=== PATIENT | female | born 1960 | race Caucasian/White ===

== ENCOUNTER → 2017-11-21 12:30 | Outpatient (REF) | payer MEDICARE, MEDICAID, SELFPAY ==
[2017-11-21 14:09] LABS: Hemoglobin A1C 9.1 % (4.5-6.2)
== END ==
LOC: LBN 12:30
PROVIDERS: PCP Nurse Practitioner; Visit Provider Family Medicine
DX: E11.40 Type 2 diabetes mellitus with diabetic neuropathy, unspecified (principal)
CPT/HCPCS: 83036

== ENCOUNTER → 2017-12-06 10:00 | Outpatient (CLI) | payer MEDICARE, MEDICAID, SELFPAY | PROVIDERS: PCP Nurse Practitioner; Visit Provider Internal Medicine Cardiovascular Disease | DX: Z45.018 Encounter for adjustment and management of other part of cardiac pacemaker (principal); I49.5 Sick sinus syndrome; L03.032 Cellulitis of left toe | CPT/HCPCS: 93288; 99213 ==

== ENCOUNTER 2017-12-27 16:47 | Emergency (ER) | payer MEDICARE, MEDICAID, SELFPAY ==
[2017-12-27] VITALS (34 sets, daily range): BP systolic 145–177; BP diastolic 65–149; PULSE 50–75; RESP 8–18; TEMP 36.8–37.2; O2SAT 99–100
--- NOTE | 2017-12-27 16:59 | W.ED.GENAD ---
Discharge Plan Discharge Details Chief Complaint: Diabetes Clinical Impression: Hyperglycemia, Unresponsive episode, Abnormal CT of brain Reason For Visit: DONNA Primary Care Provider: Rosaura Fragoso ED Provider: Camila Miranda Disposition Patient Disposition: HOME Condition: Stable Home Meds and New Rx's Prescriptions: Continue levomefolate calcium 15 MG tablet 15 mg PO DAILY RF: 0 pen needle, diabetic 1 EACH needle 1 ea Miscellaneous QID Qty: 200 RF: 5 acetaminophen 500 MG tablet 500 mg PO HS PRNRF: 0 multivitamin [Daily Multi-Vitamin] 1 EACH tablet 1 ea PO DAILY RF: 0 naproxen sodium [Aleve] 220 MG capsule 220 mg PO BID RF: 0 lorazepam 0.5 MG tablet 0.5 mg PO BID PRNQty: 60 RF: 0 insulin glargine [Basaglar KwikPen U-100 Insulin] 100 UNIT/1 ML insulin pen 30 unit SQ DAILY Qty: 3 RF: 12 oxycodone 5 MG tablet 2.5 mg PO BID PRNQty: 20 RF: 0 amoxicillin-pot clavulanate 1 TAB tablet 1 tab PO BID 7 Days Qty: 14 RF: 0 acetaminophen [Mapap Extra Strength] 500 MG tablet 500 mg PO Q8H PRN PRNQty: 1 RF: 0 insulin aspart U-100 [Novolog Flexpen U-100 Insulin] 100 UNIT/ML insulin pen 1 unit SQ TID RF: 0 atorvastatin 40 mg Tablet 40 mg PO DAILY RF: 0 acetaminophen 325 mg Tablet 650 mg PO PRN PRNRF: 0 acetaminophen [Acetaminophen Extra Strength] 500 mg Tablet 500 mg PO DAILY RF: 0 acetaminophen [Acetaminophen Extra Strength] 500 mg Tablet 1,000 mg PO BID RF: 0 hydromorphone 2 mg Tablet 2 mg PO BID PRNRF: 0 aspirin 81 mg Tablet,Chewable 81 mg PO DAILY RF: 0 folic acid 1 mg Tablet 1 mg PO DAILY RF: 0 mirtazapine 15 mg Tablet 15 mg PO HS RF: 0 gabapentin 100 mg Capsule 100 mg PO TID PRNRF: 0 ergocalciferol (vitamin D2) [Drisdol] 50,000 unit Capsule 50,000 unit PO QMONTH RF: 0 lorazepam 1 mg Tablet 1 mg PO HS RF: 0 lamotrigine 100 mg Tablet 100 mg PO DAILY RF: 0 insulin aspart U-100 [Novolog Flexpen U-100 Insulin] 100 unit/mL Insulin Pen 10 units subcut AC RF: 0 Discharge Instructions Instructions: Diabetic Hyperglycemia (ED) Additional Instructions: The CAT scan of your brain noted an area that suggested a possible old stroke. There was no new stroke noted today. You should receive a call from care management regarding follow-up with neurology Shanae Rivas for further evaluation of your abnormal CT brain. The recommendation would be for an MRI brain for further evaluation, but we are limited in doing so due to your history of pacemaker. As you have no focal weakness or numbness, there may be no further indication for any testing per neurology. Take your regular medications as directed. Be sure to drink plenty of fluids. Follow-up with her primary care doctor in 1 week. Return to the emergency department any worsening or new concerning symptoms. Referrals: Claudia Pappas MD [ [facility] STAFF PHYSICIAN] - Discharge Data Discharge Physician: Camila Miranda Medical Decision Making MDM Narrative Medical decision making narrative: 57-year-old female with history of diabetes who has been a resident of the [facility] since August 2017 after an aortobifemoral bypass at [facility] in July 2017 who presents for an unresponsive episode followed by hyperglycemia today. Per ED nurse per nurse at the [facility], patient was given a dose of Ativan and dilaudid this morning and appeared unresponsive this afternoon then another nurse reevaluated and she became responsive. Will call the [facility] for more information regarding this episode. There was also mention of chronic leg pain status post her aortobifemoral but she has good PT and DP pulses in the left lower extremity with no skin changes noted. Glucose at the [facility] 363. Glucose on arrival to ED 333. Vitals within normal limits. 1714 --EKG notes a rate of 54, sinus, no acute ST elevation or depression. QTc 379. QRS 98. Patient is awake and oriented ?3. Patient knows the president's name. Pt denies any acute complaints. Patient states her baseline glucose is usually 150. She states she ate normally today. Will place an IV, bolus IV fluids, labs, urinalysis, chest x-ray. Due to patient's unresponsive episode earlier today, unsure if this is related to over sedating medications as patient is on Ativan 1 mg daily and 0.5 mg as needed, Dilaudid 2 mg, Remeron, gabapentin, Lamictal. She demonstrates no focal deficits at this time and appears in no acute distress and nontoxic. We will also obtain a CT head. 1809 -- D/w pt's nurse Vlad (Shanae?) at the [facility] - she states that pt appeared to have an unresponsive episode today in which she was pale and had a weak pulse. She states her respiratory rate was approximately around 10 but the remainder of her vitals were within normal limits. She states she then awoke with a sternal rub and began moaning. She states that patient went with her spring encaser to her farm today prior to this episode to see her cat and she expressed concern whether patient took maybe an additional medication. She states that pt received ativan and dilaudid this morning prior to her visit to the farm. She denies any other sedating mediations today and that she receives lamictal, gabapentin and remeron at night. Pt denies taking any additional medication, alcohol or drugs today. Nurse at [facility] also expressed concern about pt feeling suicidal. She states that last week there was question of pt cutting herself but pt denies this or ever feeling suicidal then or at present. She denies any prior history of suicide attempt. Pt had an evaluation by mental health last week at the [facility] per nurse at the [facility] and they found her to not be suicidal at that time. Will check UDS. 1829 --labs reviewed and glucose 343. Anion gap 6.1. Bicarb 28.9. Potassium 4.2. Troponin negative. White blood cell count 5.31. Urine negative for ketones, nitrite, blood or leukocyte esterase. We will continue bolus IV fluids and give a dose of 6 units insulin. 1924 --discussed w/ vrad -there is a questionable subacute infarct noted in the right postcentral gyrus that recommends further evaluation with an MRI brain. There is no acute infarct. Patient denied any unilateral numbness or weakness and she had no focal deficits on initial exam. Chest x-ray noted a 1 x 0.5 lesion in the sixth rib consistent with likely a nodular granuloma or even a sclerotic lesion and recommend further evaluation with a nonemergent chest CT. These results were discussed with patient. I also discussed CT head results with patient and she denies any known previous history of stroke and any weakness at present. She has no focal deficits on reassessment. Patient cannot obtain an MRI brain due to her history of pacemaker. Patient is requesting to leave. She is tearful at times and has a history of developmental delay and mom states she is at her baseline and is not unusual for her to become tearful when talking about her history. She states she is hungry and hasn't eaten all day. She is asking for her evening dose of Dilaudid for her chronic L leg pain. Recommended that patient follow-up with neurology for reevaluation. Patient states she will not see Dr. Pappas because her and I do not get along. Will place patient on care management list for appointment with pcp and neurology [employer]INE[employer] Shanae Rivas. UDS noted opioids but otherwise negative. Recheck glucose 146. Mom will take patient to the [facility]. She plans on taking patient to eat dinner first. Patient was given a dose of her evening Dilaudid p.o. Her vitals have remained stable, she is awake and alert and mom states she is at her baseline HPI - General Adult General Mode of arrival: EMS. Date/Time Provider Initiated Documentation: 12/27/17 16:51. Limitations to Documentation: no limitations. Information obtained by: patient. HPI Narrative: Patient is a 57-year-old female history of diabetes who presents to the ER after an unresponsive episode at the [facility] today followed by hyperglycemia of 363. Pt does not recall this episode. Pt has no acute complaints at this time. She denies fever, chest pain, shortness of breath, abdominal pain, urinary symptoms, back pain, headache or dizziness. Related Data Home Medications Medication Instructions Recorded Confirmed levomefolate calcium 15 mg PO DAILY 12/26/16 08/18/17 acetaminophen 500 mg PO HS PRN 04/11/17 08/18/17 insulin aspart U-100 [Novolog 1 unit SQ TID 05/16/17 08/18/17 Flexpen U-100 Insulin] multivitamin [Daily Multi-Vitamin] 1 ea PO DAILY 05/28/17 12/27/17 naproxen sodium [Aleve] 220 mg PO BID 05/28/17 08/18/17 acetaminophen 650 mg PO PRN PRN 12/27/17 12/27/17 acetaminophen [Acetaminophen Extra 1,000 mg PO BID 12/27/17 12/27/17 Strength] acetaminophen [Acetaminophen Extra 500 mg PO DAILY 12/27/17 12/27/17 Strength] aspirin 81 mg PO DAILY 12/27/17 12/27/17 atorvastatin 40 mg PO DAILY 12/27/17 12/27/17 ergocalciferol (vitamin D2) 50,000 unit PO QMONTH 12/27/17 12/27/17 [Drisdol] folic acid 1 mg PO DAILY 12/27/17 12/27/17 gabapentin 100 mg PO TID PRN 12/27/17 12/27/17 hydromorphone 2 mg PO BID PRN 12/27/17 12/27/17 insulin aspart U-100 [Novolog 10 units SUBCUT AC 12/27/17 12/27/17 Flexpen U-100 Insulin] lamotrigine 100 mg PO DAILY 12/27/17 12/27/17 lorazepam 1 mg PO HS 12/27/17 12/27/17 mirtazapine 15 mg PO HS 12/27/17 12/27/17 Previous Rx's Medication Instructions Recorded acetaminophen [Mapap Extra 500 mg PO Q8H PRN PRN #1 tab 08/19/17 Strength] amoxicillin-pot clavulanate 1 tab PO BID 7 Days #14 tab 08/19/17 Allergies Allergy/AdvReac Type Severity Reaction Status Date / Time aripiprazole [From Abilify] Allergy Severe Unverified 12/27/17 18:11 duloxetine HCl Allergy Severe Hives Unverified 12/27/17 18:14 [From Cymbalta] oxycodone Allergy Severe Hives Unverified 12/27/17 18:11 Sulfa (Sulfonamide Allergy Severe Skin Rash Unverified 12/27/17 18:11 Antibiotics) thiothixene [Thiothixene] Allergy Severe Nausea Unverified 12/27/17 18:11 amitriptyline Allergy Intermediate Unverified 12/27/17 18:11 citalopram Allergy Intermediate HIVES Unverified 12/27/17 18:11 fesoterodine Allergy Intermediate HIVES Unverified 12/27/17 18:11 latex Allergy Intermediate Hives Unverified 12/27/17 18:11 rabies vaccine, human Allergy Intermediate Unverified 12/27/17 18:11 diploid cell [Rabies Vaccine,Human Diploid] Tetanus Vaccines and Toxoid Allergy Intermediate Swelling/Ed Unverified 12/27/17 18:11 [Tetanus Vaccines & Toxoid] ghulam topiramate Allergy Intermediate Nausea Unverified 12/27/17 18:11 acetaminophen [From Vicodin] Allergy Unknown Unverified 12/27/17 18:11 bupropion HCl Allergy Unknown Unverified 12/27/17 18:11 [From Wellbutrin] celecoxib [From Celebrex] Allergy Unknown Unverified 12/27/17 18:11 citalopram hydrobromide Allergy Unknown Unverified 12/27/17 18:11 [From Celexa] diazepam [From Valium] Allergy Unknown Unverified 12/27/17 18:11 divalproex sodium Allergy Unknown Unverified 12/27/17 18:11 [From Depakote] escitalopram oxalate Allergy Unknown Unverified 12/27/17 18:11 [From Lexapro] fluoxetine HCl [From Prozac] Allergy Unknown Unverified 12/27/17 18:11 fosphenytoin sodium Allergy Unknown Unverified 12/27/17 18:11 [From Cerebyx] hydrocodone bitartrate Allergy Unknown Unverified 12/27/17 18:11 [From Vicodin] lidocaine Allergy Unknown Nausea Unverified 12/27/17 18:11 morphine Allergy Unknown Unverified 12/27/17 18:14 nicotine [From Nicoderm CQ] Allergy Unknown rash/hives Unverified 12/27/17 18:11 paroxetine HCl [From Paxil] Allergy Unknown Unverified 12/27/17 18:11 phenytoin sodium Allergy Unknown Unverified 12/27/17 18:11 [From Dilantin] phenytoin sodium extended Allergy Unknown Unverified 12/27/17 18:11 [From Dilantin] prednisone Allergy Unknown Unverified 12/27/17 18:11 procaine HCl [From Novocain] Allergy Unknown Unverified 12/27/17 18:11 quetiapine fumarate Allergy Unknown Unverified 12/27/17 18:11 [From Seroquel] risperidone [From Risperdal] Allergy Unknown Unverified 12/27/17 18:11 sertraline Allergy Unknown Hives Unverified 12/27/17 18:11 sertraline HCl [From Zoloft] Allergy Unknown Unverified 12/27/17 18:11 trazodone Allergy Unknown Unverified 12/27/17 18:11 venlafaxine HCl Allergy Unknown Unverified 12/27/17 18:11 [From Effexor] gabapentin AdvReac Unknown Severe Unverified 12/27/17 18:11 dizziness, runs; vomiting ibuprofen AdvReac headache Unverified 12/27/17 18:11 and nausea varenicline tartrate AdvReac Psychosis Unverified 12/27/17 18:11 [From Chantix] general anesthia Allergy Unknown Uncoded 12/27/17 18:11 novcaine Allergy Unknown Uncoded 12/27/17 18:11 Rabies shot Allergy Unknown Uncoded 12/27/17 18:11 Sertaline Allergy Unknown Hives Uncoded 12/27/17 18:11 ABSOLUTE CONTRAINDICATION AdvReac Severe Headache Uncoded 12/27/17 18:11 FOR MRI (disconnected RV pacer lead) General Stated Complaint: Diabetes ASIM: 3 Review of Systems Review of Systems All systems reviewed & are unremarkable except as noted in HPI and below Constitutional Denies chills, Denies excessive sweating, Denies fatigue, Denies fever(s), Denies weakness and Denies weight loss Eyes Patient Reports system reviewed and no additional complaints, except as docu and Denies blurry vision ENT Denies vertigo, Denies dizziness, Denies otalgia, Denies nasal congestion, Denies sore throat and Denies throat swelling Cardiovascular Denies chest pain, Denies syncope, Denies rapid heart rate and Denies dyspnea Respiratory Denies dyspnea Gastrointestinal Denies abdominal pain, Denies diarrhea and Denies vomiting Genitourinary Denies hematuria, Denies dysuria and Denies flank pain Musculoskeletal Denies back pain and Denies joint swelling Integumentary/Breasts Denies lesions and Denies rash Neurologic Denies behavioral changes, Denies confusion, Denies vertigo, Denies dizziness, Denies syncope and Denies weakness Psychiatric Denies behavioral changes, Denies confusion and Denies depression Endocrine Denies excessive sweating and Denies fatigue Hematologic/Lymphatic Denies easy bruising and Denies lymphadenopathy Allergic/Immunologic Denies throat swelling PFSH Family History Mother No problems noted. Father No problems noted. Sister No problems noted. Medical History Bipolar 1 disorder Postmenopausal Sinus bradycardia Type 2 diabetes mellitus Social History Smoking/Tobacco Use Status: Former Tobacco Use Surgical History section (~1985) Pacemaker (~2004) aortobifemoral bypass (09/07/17) Exam Const General: cooperative Orientation: alert, awake and oriented x3 HENMT Head: normal to inspection Ears: hearing grossly normal bilaterally, external ears normal and TM's normal bilaterally General nose exam: external nose normal Face and sinus: normal facial exam Mouth: oral mucosae normal Teeth and gingiva: dentition normal Throat: posterior oropharynx normal Eyes General: appearance normal, both eyes and all related structures Eyelids: eyelids normal Pupils: PERRL EOM: EOM intact bilaterally Neck Neck: normal visual inspection Lymphatic: no lymphadenopathy noted Chest Chest: normal inspection of the chest Resp Effort & Inspection: normal respiratory effort and able to speak in complete sentences Auscultation: clear to auscultation bilaterally Cardio Rate: regular rate Rhythm: regular rhythm GI Inspection: normal to inspection and other (well healed midline abdominal scar) Palpation: soft, not firm, no guarding, no hepatosplenomegaly, no masses and nontender Auscultation: normal bowel sounds Back/Spine/Pelvis Back: no CVA tenderness Skin General skin exam: no rashes or lesions noted Neuro General: alert, awake and oriented x3 Cranial Nerves: CN's II-XI intact bilaterally Cognition: normal cognition Speech: speech normal Gait: normal gait Motor: muscle tone normal throughout Sensory Exam: no sensory deficits noted Extrem General: normal to inspection, full ROM, normal capillary refill, pedal edema present, no calf tenderness bilaterally, no cyanosis and no edema Right upper extremity: normal capillary refill Psych Appearance: grossly normal Mental Status: mental status grossly normal Speech and Movement: speech and movement normal Affect: normal affect Thought Process: normal Course Vital Signs Temperature 99.0 F 12/27/17 16:45 Pulse 75 12/27/17 16:45 Respiratory Rate 14 12/27/17 16:45 Temperature 99.0 F 12/27/17 16:45 Pulse 75 12/27/17 16:45 Respiratory Rate 14 12/27/17 16:45
[2017-12-27 17:23] LABS: Bilirubin Negative (Negative); Blood Negative (Negative); Clarity Clear; Glucose 500 mg/dL (Negative); Ketones Negative (Negative); Leukocyte Esterase Negative (Negative); Nitrite Negative (Negative); Specific Gravity 1.015 (1.005-1.025)
[2017-12-27] MEDS: Normal Saline Flush 10 ML SYR IVP (17:30)
[2017-12-27 17:37] LABS: Absolute Basophil Count 0.01 k/cumm (0.0-0.2); Absolute Eosinophil Count 0.07 k/cumm (0.0-0.7); Absolute Lymphocyte Count 1.98 k/cumm (1.2-3.4); Absolute Monocyte Count 0.35 k/cumm (0.11-0.7); Basophils % 0.2; Eosinophils % 1.3; HCT 37.1 % (36.0-46.0); HGB 12.8 g/dL (12.0-15.5); Lymphocytes % 37.3; Mean Corp. HGB Concentration 34.5 g/dL (32.0-36.0); Mean Corpuscular Hemoglobin 30.7 pg (27.0-33.0); Mean Platelet Volume 9.4 fL (8.0-11.0); Monocytes % 6.6; Neutrophils % 54.6; Platelet Count 203 x1000/uL (130-400); RBC 4.17 m/cumm (4.00-5.20); RBC Distribution Width 12.9 % (11.7-14.6); White Blood Cell Count 5.31 k/cumm (4.4-10.8)
[2017-12-27] MEDS: Normal Saline 1,000 ML 1000 ML IV ×2 (17:50→19:20)
[2017-12-27 17:54] LABS: ALT 26 U/L (12-78); AST 13 U/L (15-37); Albumin 3.8 g/dL (3.4-5.0); Alkaline Phosphatase 107 U/L (46-116); Anion Gap 6.1 mmol/L (3-11); BUN 20 mg/dL (7-18); Bilirubin, Total 0.6 mg/dL (0.2-1.0); CO2 28.9 mmol/L (21.0-32.0); CREATININE 1.16 mg/dL (0.55-1.02); Calcium 9.5 mg/dL (8.5-10.1); Chloride 100 mmol/L (98-107); Estimated GFR 48.33 (mL/min/1.73m2); Glucose 343 mg/dL (70-100); Magnesium 1.8 mg/dL (1.8-2.4); Potassium 4.2 mmol/L (3.5-5.1); Sodium 135 mmol/L (136-145); Total Protein 7.6 g/dL (6.4-8.2)
[2017-12-27 17:56] LABS: Troponin I < 0.02 ng/mL (0.00-0.06)
--- NOTE | 2017-12-27 18:48 | DI.COMBO_ITS ---
SYMPTOM/DIAGNOSIS: ALTERED MENTAL STATUS PA AND LATERAL CHEST: Comparison is made with 07/31/16. The heart size is normal. A pacemaker is noted. The lungs are well inflated and clear. A bone island is again seen in the left posterior sixth rib. IMPRESSION: No acute abnormality. NONCONTRAST HEAD CT: Comparison is made with 02/10/16. No intracranial hemorrhage, mass or acute infarct is seen. Again noted are patchy areas of decreased attenuation in the white matter consistent with small vessel disease. There is a more focal area of decreased attenuation in the posterior left frontal as well as in the right parietal lobe, consistent with old lacunar infarcts. The ventricles are normal in size.. The sinuses and mastoid air cells appear clear. 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 No acute infarct is visible at this time.
--- NOTE | 2017-12-27 19:04 | NUR.NOTE ---
Nursing Note: Escorted via stretcher to CT and xray at 1840 by library cataloging technician. Return to ED at 1900
[2017-12-27] MEDS: Insulin REGULAR-Human 100 UNITS/ML UNIT 6 UNITS IV (19:14)
[2017-12-27 19:43] LABS: *AMPHETAMINES SCREEN URINE Negative (Negative); *BARBITURATES SCREEN URINE Negative (Negative); *BENZODIAZEPINES SCREEN URINE Negative (Negative); Cannabinoids THC Negative (Negative); Cocaine Screen,Urine Negative (Negative); METHADONE URINE SCREEN Negative (Negative); OPIATES URINE SCREEN POSITIVE (Negative); Tricyclic Antidepressants Negative (Negative)
[2017-12-27] MEDS: HYDROmorphone 2 MG TAB PO (20:01)
--- NOTE | 2018-01-07 10:53 | PDOC.ERCMPRO ---
Care Management Progress Note 01/07/18-Pt seen for unresponsive episode on 12/27/[address] Miranda. [address] Scan was abnormal. Referral to Neurology for the next day or two requested.
== END 2017-12-27 20:24 | disposition home or self-care (01) ==
PROVIDERS: Emergency Provider Physician Assistant; PCP Nurse Practitioner
DX: E11.65 Type 2 diabetes mellitus with hyperglycemia (principal); Z79.4 Long term (current) use of insulin; R41.82 Altered mental status, unspecified; R93.0 Abnormal findings on diagnostic imaging of skull and head, not elsewhere classified; Z95.0 Presence of cardiac pacemaker
CPT/HCPCS: 36416; 80053; 80307; 82962; 93005; 96361; 96374; 99285; 70450; 71046; 81003; 83735; 84484; 85025; 93010

== ENCOUNTER → 2018-01-17 09:43 | Outpatient (BNVA) | payer MEDICARE, MEDICAID, SELFPAY | PROVIDERS: PCP Nurse Practitioner; Visit Provider Psychiatry & Neurology Neurology | DX: I63.9 Cerebral infarction, unspecified (principal); E11.9 Type 2 diabetes mellitus without complications; Z79.4 Long term (current) use of insulin | CPT/HCPCS: 99214 ==

== ENCOUNTER 2018-01-24 09:07 | Emergency (ER) | payer MEDICARE, MEDICAID, SELFPAY ==
[2018-01-24 09:11] VITALS: BP 140/90; PULSE 91; RESP 18; TEMP 37; O2SAT 96
--- NOTE | 2018-01-24 09:16 | DI.RAD_ITS ---
SYMPTOM/DIAGNOSIS: LT LAT DISTAL METATARSAL LESION, ? OSTEO LEFT FOOT: Three views. No acute fracture, dislocation, lytic or sclerotic lesion is seen. No erosive changes are seen to suggest osteomyelitis. The bones are osteopenic. No radiopaque foreign bodies are seen in the soft tissues. IMPRESSION: No radiographic findings to suggest osteomyelitis. The findings were discussed with Dr Rocha of the ER on the date of the examination.
--- NOTE | 2018-01-24 09:18 | W.ED.GENAD ---
Discharge Plan Disposition Patient Disposition: HOME Condition: Good Discharge Details Chief Complaint: Orthopedic Clinical Impression: Acute pain of left foot, Cellulitis Primary Care Provider: Rosaura Fragoso ED Provider: Yomi Rocha Home Meds and New Rx's Prescriptions: New cephalexin 500 mg capsule 500 mg PO QID 7 Days Qty: 28 RF: 0 No Action pen needle, diabetic 1 EACH needle 1 ea Miscellaneous QID Qty: 200 RF: 5 multivitamin [Daily Multi-Vitamin] 1 EACH tablet 1 ea PO DAILY RF: 0 lorazepam 0.5 MG tablet 0.5 mg PO BID PRNQty: 60 RF: 0 insulin aspart U-100 [Novolog Flexpen U-100 Insulin] 100 UNIT/ML insulin pen 1 unit SQ TID RF: 0 atorvastatin 40 mg Tablet 40 mg PO DAILY RF: 0 acetaminophen 325 mg Tablet 650 mg PO PRN PRNRF: 0 acetaminophen [Acetaminophen Extra Strength] 500 mg Tablet 1,000 mg PO TID RF: 0 hydromorphone 2 mg Tablet 1 mg PO BID PRNRF: 0 aspirin 81 mg Tablet,Chewable 81 mg PO DAILY RF: 0 folic acid 1 mg Tablet 1 mg PO DAILY RF: 0 mirtazapine 15 mg Tablet 15 mg PO HS RF: 0 gabapentin 100 mg Capsule 100 mg PO TID PRNRF: 0 ergocalciferol (vitamin D2) [Drisdol] 50,000 unit Capsule 50,000 unit PO QMONTH RF: 0 lorazepam 1 mg Tablet 1 mg PO HS RF: 0 lamotrigine 100 mg Tablet 100 mg PO DAILY RF: 0 insulin aspart U-100 [Novolog Flexpen U-100 Insulin] 100 unit/mL Insulin Pen 10 units subcut AC RF: 0 melatonin 10 mg Tablet 10 mg PO HS RF: 0 insulin glargine [Basaglar KwikPen U-100 Insulin] 100 UNIT/1 ML insulin pen 35 unit SQ DAILY RF: 0 Discharge Instructions Instructions: Cellulitis (ED) Additional Instructions: Please take the antibiotic as directed. Please take your home pain medications as already prescribed. If you notice any worsening of your symptoms, or any new symptoms such as vomiting, diarrhea, fever, chills, shortness of breath, chest pain, numbness, weakness, or fainting , please return immediately to the emergency department for reevaluation. Please follow up with your primary care provider as soon as possible for reassessment and reevaluation. As always, it was a pleasure participating in your medical care today. Referrals: Rosaura Fragoso, LAZARO [Primary Care Provider] - Medical Decision Making This is a pleasant 57-year-old female multiple medical problems who presents today for evaluation of left lower foot pain at the distal left fifth metatarsal. Minimal redness, no signs of fluctuance. Mild tenderness. She does have risk factors for osteomyelitis of diabetes, and peripheral vascular disease. Physical exam shows no ulceration. Unable to probe to bone on exam. We will get an ESR, CRP, and x-ray to rule out osteo-. Feel that she will be safe for discharge home pending results. 10:24 AM The patient's x-ray has returned, I see no evidence of osteomyelitis, I did review it with the radiologist and he states no evidence of osteomyelitis. Patient demonstrates no significant leukocytosis, her CRP is normal. And the ESR is only marginally elevated at 35. Additionally there was no evidence of ability to probe to bone on my initial exam. I feel that the likelihood of osteomyelitis is extremely unlikely and clinically inconsistent with her current picture. With no evidence of significant severe cellulitis, I feel her symptoms most likely secondary to mild irritation and soreness. Out of an abundance of precaution secondary to the patient's diabetes, and peripheral vascular disease we will give a trial of oral antibiotics for potential mild cellulitis. I have extensively reviewed the treatment plan and discharge instructions with the patient and their family. I have addressed all patient concerns at this time. The patient and family was made aware of what symptoms to monitor for that would warrant a return to the emergency department. Discussed the plan with the patient and family, they demonstrate verbal understanding and agreement with our assessment and plan at this time. HPI General Date/Time Provider Initiated Documentation: 01/24/18 09:15. HPI Narrative: This is a 57-year-old female with a very long past medical history of paranoia, PTSD, previous abdominal aortofemoral bypass, peripheral artery disease, bipolar, type 2 diabetes, empty HFR, who presents today for evaluation of left lateral foot pain. Patient states that 2 weeks ago she felt that something sharp might of poked her left lateral foot, there is no pain initially, however over the last week she has developed mild worsening pain over this region. She denies any fever, or chills. The pain is worse with movement and palpation, improved by nothing. She denies any significant redness or swelling. She denies any ankle or leg pain. She denies any other recent injuries or trauma. She has not been taking any antibiotics. She is currently staying at the [facility] facility. Patient has no other additional pertinent complaints at this time. Related Data Home Medications Medication Instructions Recorded Confirmed pen needle, diabetic #200 ndl 02/27/17 01/17/18 insulin aspart U-100 [Novolog 1 unit SQ TID 05/16/17 01/24/18 Flexpen U-100 Insulin] multivitamin [Daily Multi-Vitamin] 1 ea PO DAILY 05/28/17 01/24/18 lorazepam 0.5 mg PO BID PRN #60 tab-cap 06/04/17 01/24/18 acetaminophen 650 mg PO PRN PRN 12/27/17 01/24/18 acetaminophen [Acetaminophen Extra 1,000 mg PO TID 12/27/17 01/24/18 Strength] aspirin 81 mg PO DAILY 12/27/17 01/24/18 atorvastatin 40 mg PO DAILY 12/27/17 01/24/18 ergocalciferol (vitamin D2) 50,000 unit PO QMONTH 12/27/17 01/24/18 [Drisdol] folic acid 1 mg PO DAILY 12/27/17 01/24/18 gabapentin 100 mg PO TID PRN 12/27/17 01/24/18 hydromorphone 1 mg PO BID PRN 12/27/17 01/24/18 insulin aspart U-100 [Novolog 10 units SUBCUT AC 12/27/17 01/17/18 Flexpen U-100 Insulin] lamotrigine 100 mg PO DAILY 12/27/17 01/24/18 lorazepam 1 mg PO HS 12/27/17 01/24/18 mirtazapine 15 mg PO HS 12/27/17 01/24/18 cephalexin 500 mg PO QID 7 Days #28 cap 01/24/18 insulin glargine [Basaglar KwikPen 35 unit SQ DAILY 01/24/18 01/24/18 U-100 Insulin] melatonin 10 mg PO HS 01/24/18 01/24/18 Previous Rx's Medication Instructions Recorded pen needle, diabetic #200 ndl 02/27/17 cephalexin 500 mg PO QID 7 Days #28 cap 01/24/18 Allergies Allergy/AdvReac Type Severity Reaction Status Date / Time aripiprazole [From Abilify] Allergy Severe Unverified 01/24/18 09:20 duloxetine HCl Allergy Severe Hives Unverified 01/24/18 09:20 [From Cymbalta] oxycodone Allergy Severe Hives Unverified 01/24/18 09:20 Sulfa (Sulfonamide Allergy Severe Skin Rash Unverified 01/24/18 09:20 Antibiotics) thiothixene [Thiothixene] Allergy Severe Nausea Unverified 01/24/18 09:20 amitriptyline Allergy Intermediate Unverified 01/24/18 09:20 citalopram Allergy Intermediate HIVES Unverified 01/24/18 09:20 fesoterodine Allergy Intermediate HIVES Unverified 01/24/18 09:20 latex Allergy Intermediate Hives Unverified 01/24/18 09:20 rabies vaccine, human Allergy Intermediate Unverified 01/24/18 09:20 diploid cell [Rabies Vaccine,Human Diploid] Tetanus Vaccines and Toxoid Allergy Intermediate Swelling/Ed Unverified 01/24/18 09:20 [Tetanus Vaccines & Toxoid] ghulam topiramate Allergy Intermediate Nausea Unverified 01/24/18 09:20 acetaminophen [From Vicodin] Allergy Unknown Unverified 01/24/18 09:20 bupropion HCl Allergy Unknown Unverified 01/24/18 09:20 [From Wellbutrin] celecoxib [From Celebrex] Allergy Unknown Unverified 01/24/18 09:20 citalopram hydrobromide Allergy Unknown Unverified 01/24/18 09:20 [From Celexa] diazepam [From Valium] Allergy Unknown Unverified 01/24/18 09:20 divalproex sodium Allergy Unknown Unverified 01/24/18 09:20 [From Depakote] escitalopram oxalate Allergy Unknown Unverified 01/24/18 09:20 [From Lexapro] fluoxetine HCl [From Prozac] Allergy Unknown Unverified 01/24/18 09:20 fosphenytoin sodium Allergy Unknown Unverified 01/24/18 09:20 [From Cerebyx] hydrocodone bitartrate Allergy Unknown Unverified 01/24/18 09:20 [From Vicodin] lidocaine Allergy Unknown Nausea Unverified 01/24/18 09:20 morphine Allergy Unknown Unverified 01/24/18 09:20 nicotine [From Nicoderm CQ] Allergy Unknown rash/hives Unverified 01/24/18 09:20 paroxetine HCl [From Paxil] Allergy Unknown Unverified 01/24/18 09:20 phenytoin sodium Allergy Unknown Unverified 01/24/18 09:20 [From Dilantin] phenytoin sodium extended Allergy Unknown Unverified 01/24/18 09:20 [From Dilantin] prednisone Allergy Unknown Unverified 01/24/18 09:20 procaine HCl [From Novocain] Allergy Unknown Unverified 01/24/18 09:20 quetiapine fumarate Allergy Unknown Unverified 01/24/18 09:20 [From Seroquel] risperidone [From Risperdal] Allergy Unknown Unverified 01/24/18 09:20 sertraline Allergy Unknown Hives Unverified 01/24/18 09:20 sertraline HCl [From Zoloft] Allergy Unknown Unverified 01/24/18 09:20 trazodone Allergy Unknown Unverified 01/24/18 09:20 venlafaxine HCl Allergy Unknown Unverified 01/24/18 09:20 [From Effexor] gabapentin AdvReac Unknown Severe Unverified 01/24/18 09:20 dizziness, runs; vomiting ibuprofen AdvReac headache Unverified 01/24/18 09:20 and nausea varenicline tartrate AdvReac Psychosis Unverified 01/24/18 09:20 [From Chantix] general anesthia Allergy Unknown Uncoded 01/24/18 09:20 novcaine Allergy Unknown Uncoded 01/24/18 09:20 Rabies shot Allergy Unknown Uncoded 01/24/18 09:20 Sertaline Allergy Unknown Hives Uncoded 01/24/18 09:20 ABSOLUTE CONTRAINDICATION AdvReac Severe Headache Uncoded 01/24/18 09:20 FOR MRI (disconnected RV pacer lead) General Stated Complaint: Orthopedic ASIM: 3 Review of Systems Review of Systems All systems reviewed & are unremarkable except as noted in HPI and below Exam Narrative Exam Narrative: 1.Const: Well-nourished, Well-developed, appearing stated age 2.Eyes: PERRL, no conjunctival injection, and symmetrical lids. 3.ENT: Atraumatic external nose and ears. Moist MM. Neck: Symmetric, trachea midline, No thyromegaly. 4.CVS: +S1/S2, No murmurs or gallops. Peripheral pulses 2+ and equal in all extremities. Brisk capillary refill in all extremities. 5.RESP: Unlabored respiratory effort. Clear to auscultation bilaterally. No wheezes rales or rhonchi 6.GI: Soft, Nontender/Nondistended, No hepatosplenomegaly. No guarding or rebound. Recent abdominal scars present, healing well, no significant tenderness. Excellent wound healing. 7.MSK: Normocephalic/Atraumatic, Extremities w/o deformity, No cyanosis or clubbing, Normal movement of all extremities. Patient does have a small pinpoint lesion on the lateral aspect of her distal 5th metatarsal. No evidence of fluctuance. Minimal erythema extending out 5 mm. Mild tenderness in the area. No evidence of ulceration. Normal movement of foot and toes. No significant osseous deformity. Normal sensation. Dorsalis pedis +1 bilaterally, posterior tibial +1 bilaterally, capillary refill is brisk. 8.Skin: Warm, Dry. No rashes or lesions. 9.Neuro: barker operator II-XII grossly intact. Sensation grossly intact, no focal neurologic deficits. 10.Psych: (AAO) x3. Appropriate mood and affect Course Vital Signs Temperature 37.0 C 01/24/18 09:11 Pulse 91 H 01/24/18 09:11 Respiratory Rate 18 01/24/18 09:11 Blood Pressure 140/90 01/24/18 09:11 Pulse Oximetry 96 01/24/18 09:11 Temperature 37.0 C 01/24/18 09:11 Temperature Source Skin 01/24/18 09:11 Pulse 91 H 01/24/18 09:11 Respiratory Rate 18 01/24/18 09:11 Blood Pressure 140/90 01/24/18 09:11 Blood Pressure Position Sitting 01/24/18 09:11 Pulse Oximetry 96 01/24/18 09:11 Oxygen Delivery Method Room Air 01/24/18 09:11 Oxygen Flow Rate 0 01/24/18 09:11 Pain Level 9 01/24/18 09:11
[2018-01-24 09:49] LABS: Abs Immature Grans 0.01 k/cumm (0.0-0.09); Absolute Basophil Count 0.03 k/cumm (0.0-0.2); Absolute Lymphocyte Count 1.35 k/cumm (1.2-3.4); Absolute Monocyte Count 0.29 k/cumm (0.11-0.7); Absolute Neutrophil Count 3.42 k/cumm (1.2-6.7); Basophils % 0.6; Eosinophils % 1.9; HCT 37.9 % (36.0-46.0); HGB 13.2 g/dL (12.0-15.5); Immature Grans % 0.2; Mean Corp. HGB Concentration 34.8 g/dL (32.0-36.0); Mean Corpuscular Hemoglobin 31.8 pg (27.0-33.0); Mean Corpuscular Volume 91.3 fL (80-95); Mean Platelet Volume 9.8 fL (8.0-11.0); Monocytes % 5.6; Neutrophils % 65.7; Platelet Count 184 x1000/uL (130-400); RBC 4.15 m/cumm (4.00-5.20); RBC Distribution Width 12.6 % (11.7-14.6)
[2018-01-24 10:01] LABS: C-Reactive Protein < 0.05 mg/dL (0.0-0.3)
[2018-01-24 10:23] LABS: ESR 35 MM/HR (0-30)
== END 2018-01-24 10:43 | disposition home or self-care (01) ==
PROVIDERS: Emergency Provider Student in an Organized Health Care Education/Training Program; PCP Nurse Practitioner
DX: M79.672 Pain in left foot (principal); L03.116 Cellulitis of left lower limb; R70.0 Elevated erythrocyte sedimentation rate; E11.9 Type 2 diabetes mellitus without complications; Z79.4 Long term (current) use of insulin; I73.9 Peripheral vascular disease, unspecified
CPT/HCPCS: 36415; 85652; 99283; 73620; 73630; 85025; 86140

== ENCOUNTER 2018-07-07 08:11 | Emergency (ER) | payer MEDICARE, MEDICAID, SELFPAY ==
--- NOTE | 2018-07-07 08:16 | NUR.NOTE ---
pt tripped on a carpet at approximately 1900 last night landing on her left elbow pt denies hitting her head, loc or any other injuries
[2018-07-07 08:17] VITALS: BP 171/81; PULSE 66; RESP 15; TEMP 36.8; O2SAT 99
--- NOTE | 2018-07-07 08:28 | W.ED.GENAD ---
Discharge Plan Disposition Patient Disposition: HOME Discharge Details Chief Complaint: Orthopedic Clinical Impression: Fracture of radial head, left, closed Primary Care Provider: Rosaura Fragoso ED Provider: Kenyon Long Home Meds and New Rx's Prescriptions: Continued Vraylar 1.5 mg capsule 1.5 mg PO DAILY RF: 0 nystatin 100,000 unit/gram cream 1 applic TP TID PRN (Reason: Apply to rash between breasts) Qty: 30 RF: 1 Eliquis 5 mg tablet 5 mg PO BID Qty: 180 RF: 3 atorvastatin 40 mg tablet 40 mg PO DAILY Qty: 90 RF: 3 Basaglar KwikPen U-100 Insulin 100 unit/mL (3 mL) insulin pen 35 unit subcut DAILY Qty: 15 RF: 12 Novolog Flexpen U-100 Insulin 100 unit/mL insulin pen 10 unit subcut AC Qty: 15 RF: 12 Blood Glucose Test strip .ROUTE .MEDSUPPLY Qty: 300 RF: 3 alpha lipoic acid 300 mg capsule 300 mg PO DAILY Qty: 90 RF: 3 multivitamin [Daily Multi-Vitamin] 1 EACH tablet 1 ea PO DAILY RF: 0 TENS 504 device .ROUTE .MEDSUPPLY Qty: 1 RF: 0 lamotrigine 100 mg tablet 100 mg PO BID RF: 0 lorazepam 1 mg tablet 1 mg PO HS RF: 0 pen needle, diabetic 31 gauge x 1/3 needle 1 ea Miscellaneous QID Qty: 200 RF: 5 acetaminophen [Acetaminophen Extra Strength] 500 mg Tablet 1,000 mg PO TID RF: 0 mirtazapine 15 mg Tablet 15 mg PO HS RF: 0 ergocalciferol (vitamin D2) [Drisdol] 50,000 unit Capsule 50,000 unit PO QMONTH RF: 0 melatonin 10 mg Tablet 10 mg PO HS RF: 0 Discharge Instructions Instructions: Elbow Fracture in Adults (ED), Fall Prevention for Older Adults (ED) Additional Instructions: Use sling. No lifting or weightbearing with left arm. Follow-up with orthopedics. Call for an appointment. Return to the ER for any worsening or new concerning symptoms. Referrals: Natalio Baig MD [ [facility] STAFF PHYSICIAN] - Medical Decision Making 57-year-old female here today with left elbow pain after mechanical fall landing on her left elbow last night. She is neurovascular intact distal left upper extremity. X-ray of the left elbow reviewed and interpreted by radiology: IMPRESSION: 1. Lucency through the neck of the radial head consistent with minimally displaced fracture. 2. Small anterior joint effusion. I called and spoke with orthopedics divisional storekeeper, Dr. Baig who reviewed xray and agrees with plan for sling and followup. Sling applied. Patient instructed to follow-up with orthopedics. HPI General Mode of arrival: ambulatory. Date/Time Provider Initiated Documentation: 07/07/18 08:27. Limitations to Documentation: no limitations. Information obtained by: patient. HPI Narrative: 57-year-old female presents with chief complaint of elbow pain. Patient notes she tripped and fell on a rug last night and landed on her left elbow. She has had pain since the fall. Pain is worse with extension at the elbow. She has no associated numbness or weakness. She did not hit her head. She did not lose consciousness. No neck pain. She has no pelvic pain. No chest pain or abdominal pain. Related Data Home Medications Medication Instructions Recorded Confirmed multivitamin [Daily Multi-Vitamin] 1 ea PO DAILY 05/28/17 07/07/18 acetaminophen [Acetaminophen Extra 1,000 mg PO TID 12/27/17 07/07/18 Strength] ergocalciferol (vitamin D2) 50,000 unit PO QMONTH 12/27/17 07/07/18 [Drisdol] mirtazapine 15 mg PO HS 12/27/17 07/07/18 melatonin 10 mg PO HS 01/24/18 05/06/18 apixaban 5 mg tablet 5 mg PO BID #180 tab 04/09/18 05/06/18 atorvastatin 40 mg tablet 40 mg PO DAILY #90 tab 04/09/18 07/07/18 cariprazine 1.5 mg capsule 1.5 mg PO DAILY 04/09/18 05/06/18 insulin aspart U- 100 100 unit/mL 10 unit SUBCUT AC #15 ml 04/09/18 07/07/18 subcutaneous pen insulin glargine (U-100) 100 35 unit SUBCUT DAILY #15 ml 04/09/18 07/07/18 unit/mL (3 mL) subcutaneous pen nystatin 100,000 unit/gram topical 1 applic TP TID PRN #30 gm 04/09/18 07/07/18 cream alpha lipoic acid 300 mg capsule 300 mg PO DAILY #90 cap 05/06/18 07/07/18 blood sugar diagnostic strips #300 each 05/06/18 07/07/18 transcutaneous electrical nerve #1 each 05/08/18 07/07/18 stimulators (TENS) device lamotrigine 100 mg tablet 100 mg PO BID tab 05/09/18 07/07/18 lorazepam 1 mg tablet 1 mg PO HS 05/09/18 07/07/18 pen needle, diabetic 31 gauge x #200 ndl 06/12/18 07/07/18 1/ Previous Rx's Medication Instructions Recorded apixaban 5 mg tablet 5 mg PO BID #180 tab 04/09/18 atorvastatin 40 mg tablet 40 mg PO DAILY #90 tab 04/09/18 insulin aspart U- 100 100 unit/mL 10 unit SUBCUT AC #15 ml 04/09/18 subcutaneous pen insulin glargine (U-100) 100 35 unit SUBCUT DAILY #15 ml 04/09/18 unit/mL (3 mL) subcutaneous pen nystatin 100,000 unit/gram topical 1 applic TP TID PRN #30 gm 04/09/18 cream alpha lipoic acid 300 mg capsule 300 mg PO DAILY #90 cap 05/06/18 blood sugar diagnostic strips #300 each 05/06/18 transcutaneous electrical nerve #1 each 05/08/18 stimulators (TENS) device pen needle, diabetic 31 gauge x #200 ndl 06/12/18/3 Allergies Allergy/AdvReac Type Severity Reaction Status Date / Time aripiprazole [From Abilify] Allergy Severe Verified 07/07/18 08:21 duloxetine HCl Allergy Severe Hives Verified 07/07/18 08:21 [From Cymbalta] oxycodone Allergy Severe Hives Verified 07/07/18 08:21 Sulfa (Sulfonamide Allergy Severe Skin Rash Verified 07/07/18 08:21 Antibiotics) thiothixene [Thiothixene] Allergy Severe Nausea Verified 07/07/18 08:21 amitriptyline Allergy Intermediate Verified 07/07/18 08:21 citalopram Allergy Intermediate HIVES Verified 07/07/18 08:21 fesoterodine Allergy Intermediate HIVES Verified 07/07/18 08:21 latex Allergy Intermediate Hives Verified 07/07/18 08:21 rabies vaccine, human Allergy Intermediate Verified 07/07/18 08:21 diploid cell [Rabies Vaccine,Human Diploid] Tetanus Vaccines and Toxoid Allergy Intermediate Swelling/Ed Verified 07/07/18 08:21 [Tetanus Vaccines & Toxoid] ghulam topiramate Allergy Intermediate Nausea Verified 07/07/18 08:21 acetaminophen [From Vicodin] Allergy Unknown Verified 07/07/18 08:21 bupropion HCl Allergy Unknown Verified 07/07/18 08:21 [From Wellbutrin] celecoxib [From Celebrex] Allergy Unknown Verified 07/07/18 08:21 citalopram hydrobromide Allergy Unknown Verified 07/07/18 08:21 [From Celexa] diazepam [From Valium] Allergy Unknown Verified 07/07/18 08:21 divalproex sodium Allergy Unknown Verified 07/07/18 08:21 [From Depakote] escitalopram oxalate Allergy Unknown Verified 07/07/18 08:21 [From Lexapro] fluoxetine HCl [From Prozac] Allergy Unknown Verified 07/07/18 08:21 fosphenytoin sodium Allergy Unknown Verified 07/07/18 08:21 [From Cerebyx] hydrocodone bitartrate Allergy Unknown Verified 07/07/18 08:21 [From Vicodin] lidocaine Allergy Unknown Nausea Verified 07/07/18 08:21 morphine Allergy Unknown Verified 07/07/18 08:21 nicotine [From Nicoderm CQ] Allergy Unknown rash/hives Verified 07/07/18 08:21 paroxetine HCl [From Paxil] Allergy Unknown Verified 07/07/18 08:21 phenytoin sodium Allergy Unknown Verified 07/07/18 08:21 [From Dilantin] phenytoin sodium extended Allergy Unknown Verified 07/07/18 08:21 [From Dilantin] prednisone Allergy Unknown Verified 07/07/18 08:21 procaine HCl [From Novocain] Allergy Unknown Verified 07/07/18 08:21 quetiapine fumarate Allergy Unknown Verified 07/07/18 08:21 [From Seroquel] risperidone [From Risperdal] Allergy Unknown Verified 07/07/18 08:21 sertraline Allergy Unknown Hives Verified 07/07/18 08:21 sertraline HCl [From Zoloft] Allergy Unknown Verified 07/07/18 08:21 trazodone Allergy Unknown Verified 07/07/18 08:21 venlafaxine HCl Allergy Unknown Verified 07/07/18 08:21 [From Effexor] gabapentin AdvReac Unknown Severe Verified 07/07/18 08:21 dizziness, runs; vomiting ibuprofen AdvReac headache Verified 07/07/18 08:21 and nausea varenicline tartrate AdvReac Psychosis Verified 07/07/18 08:21 [From Chantix] general anesthia Allergy Unknown Uncoded 07/07/18 08:21 novcaine Allergy Unknown Uncoded 07/07/18 08:21 Rabies shot Allergy Unknown Uncoded 07/07/18 08:21 Sertaline Allergy Unknown Hives Uncoded 07/07/18 08:21 ABSOLUTE CONTRAINDICATION AdvReac Severe Headache Uncoded 07/07/18 08:21 FOR MRI (disconnected RV pacer lead) General Stated Complaint: Orthopedic ASIM: 4 Review of Systems Cardiovascular Denies chest pain and Denies dyspnea Respiratory Denies dyspnea Gastrointestinal Denies abdominal pain Musculoskeletal Reports as per HPI Neurologic Reports as per HPI [facility] Medical History Type 2 diabetes mellitus (Chronic) Sinus bradycardia (Chronic) Postmenopausal (Chronic) Bipolar 1 disorder (Chronic) Vitreous hemorrhage, right eye (Resolved 07/24/17) Peripheral vertigo (Resolved 05/26/13) Paranoia (Chronic 12/19/16) Pacemaker (Chronic 10/22/14) PTSD (post-traumatic stress disorder) (Chronic 05/28/17) PAD (peripheral artery disease) (Chronic 08/13/17) Meralgia paresthetica, right lower limb (Chronic 11/05/15) Mental health disorder (Chronic 10/08/15) MTHFR mutation (Chronic 08/11/15) Dyskinesia, tardive (Chronic 02/11/15) Critical lower limb ischemia (Chronic) Congenital single kidney (Chronic 03/08/15) Cellulitis of toe of left foot (Resolved 05/17/17) Adult BMI > 30 (Chronic 06/07/15) Stroke (Chronic) Sinus node dysfunction (Resolved 10/22/14) Surgical History section (~1985) Pacemaker (~2004) aortobifemoral bypass (09/07/17) Family History Mother No problems noted. Father No problems noted. Sister No problems noted. Social History Smoking/Tobacco Use Status: Never Alcohol Intake: never Drug use: Never Substance use type: does not use Do you feel safe at home: Yes Do you feel safe in your relationship?: Yes Additional Social history: Has lived at the [facility] since August 2017 after PAD/bypass surgery. No smoking, ETOH, or illicit drug use. She has one daughter (no contact). Exam Const General: cooperative and no acute distress HENMT Head: normocephalic and atraumatic Mouth: moist mucous membranes Neck Neck: full ROM and nontender Resp Auscultation: clear to auscultation bilaterally, no rales, no rhonchi and no wheezes Cardio Rate: regular rate and not tachycardic Rhythm: regular rhythm Pulses: radial pulses present on the left 2+ GI Palpation: soft, not firm, no guarding, no masses, not rigid and nontender Back/Spine/Pelvis Back: No back tenderness Pelvis: no pain with anterior-posterior compression and no pain with lateral compression Skin General skin exam: no rashes or lesions noted Neuro General: alert, awake and tone normal Motor: other (5/5 strenght distal LUE) Sensory Exam: no sensory deficits noted (distal LUE) Extrem General: no edema Left upper extremity: shoulder/upper arm Details: no tenderness and no swelling and elbow/forearm Details: tenderness Location: of the lateral epicondyle, of the medial epicondyle and of the radial head; not of the mid-shade forarm and not of the proximal forearm and abnormal ROM Details: pain with passive ROM Details: with extension and with supination; no swelling and no lacerations Course Vital Signs Temperature 36.8 C 07/07/18 08:17 Pulse 66 07/07/18 08:17 Respiratory Rate 15 07/07/18 08:17 Blood Pressure 171/81 H 07/07/18 08:17 Pulse Oximetry 99 07/07/18 08:17 Temperature 36.8 C 07/07/18 08:17 Temperature Source Skin 07/07/18 08:17 Pulse 66 07/07/18 08:17 Respiratory Rate 15 07/07/18 08:17 Respiratory Effort 07/07/18 08:22 Blood Pressure 171/81 H 07/07/18 08:17 Blood Pressure Position Sitting 07/07/18 08:17 Pulse Oximetry 99 07/07/18 08:17 Oxygen Delivery Method Room Air 07/07/18 08:17 Oxygen Flow Rate 0 07/07/18 08:17 Pain Level 8 07/07/18 08:17
--- NOTE | 2018-07-07 08:46 | DI.RAD_ITS ---
SYMPTOM/DIAGNOSIS: FELL, PAIN LEFT ELBOW: Three views. There is a nondisplaced fracture through the left radial neck. No other fracture or dislocation is seen. Small joint effusion is present. IMPRESSION: Nondisplaced fracture of the left radial neck.
--- NOTE | 2018-07-07 09:18 | DI.VRAD_ITS ---
EXAM: XR Left Elbow Complete, 3 or more Views EXAM DATE/TIME: 07/07/2018 8:28 AM CLINICAL HISTORY: 57 years old, female; Signs and symptoms; Other: Fall, pain TECHNIQUE: XR Left elbow, 3 or more views. COMPARISON: No relevant prior studies available. FINDINGS: Bones/joints: Lucency through the neck of the radial head consistent with minimally displaced fracture. Small anterior joint effusion. Soft tissues: Normal. IMPRESSION: 1. Lucency through the neck of the radial head consistent with minimally displaced fracture. 2. Small anterior joint effusion. Dictated and Authenticated by: Khadar Richardson MD. Ordering:YVETTE Prescott MD
[2018-07-07 09:55] VITALS: BP 160/71; PULSE 66; RESP 15; TEMP 36.8; O2SAT 99
== END 2018-07-07 09:56 | disposition home or self-care (01) ==
PROVIDERS: Emergency Provider Student in an Organized Health Care Education/Training Program; PCP Nurse Practitioner
DX: S52.122A Displaced fracture of head of left radius, initial encounter for closed fracture (principal); W01.10XA Fall on same level from slipping, tripping and stumbling with subsequent striking against unspecified object, initial encounter; E11.9 Type 2 diabetes mellitus without complications
CPT/HCPCS: 99283; 73080; 99282; L3650

== ENCOUNTER 2018-07-22 13:55 | Outpatient (CLI) | payer MEDICARE, MEDICAID, SELFPAY ==
--- NOTE | 2018-07-22 13:51 | DI.RAD_ITS ---
SYMPTOM/DIAGNOSIS: LT FOREARM PAIN, S/P FALL LEFT ELBOW: Three views were obtained and show a previously described radial fracture with no gross interval change in alignment of the fracture fragments in comparison with the examination of 07/07. LEFT FOREARM: The proximal radial fracture is again noted. No additional bony abnormality is seen.
== END 2018-07-22 14:15 ==
PROVIDERS: PCP Nurse Practitioner; Referring Provider Nurse Practitioner; Visit Provider Student in an Organized Health Care Education/Training Program
DX: S52.135A Nondisplaced fracture of neck of left radius, initial encounter for closed fracture; W01.0XXA Fall on same level from slipping, tripping and stumbling without subsequent striking against object, initial encounter
CPT/HCPCS: 29125; 99203; 99204; 99213; 73080; 73090; L3908

== ENCOUNTER 2018-07-29 07:56 | Outpatient (CLI) | payer MEDICARE, MEDICAID, SELFPAY ==
[2018-07-29 08:47] LABS: HGB 13.1 g/dL (12.0-15.5); Mean Corp. HGB Concentration 33.6 g/dL (32.0-36.0); Mean Corpuscular Hemoglobin 30.1 pg (27.0-33.0); Mean Corpuscular Volume 89.7 fL (80-95); Mean Platelet Volume 9.7 fL (8.0-11.0); Platelet Count 213 x1000/uL (130-400); RBC 4.35 m/cumm (4.00-5.20); RBC Distribution Width 13.1 % (11.7-14.6); White Blood Cell Count 5.61 k/cumm (4.4-10.8)
[2018-07-29 09:22] LABS: Hemoglobin A1C 6.5 % (4.5-6.2)
[2018-07-29 09:43] LABS: ALT 28 U/L (12-78); AST 16 U/L (15-37); Albumin 3.9 g/dL (3.4-5.0); Alkaline Phosphatase 87 U/L (46-116); Anion Gap 9.2 mmol/L (3-11); BUN 29 mg/dL (7-18); Bilirubin, Total 0.6 mg/dL (0.2-1.0); CO2 28.8 mmol/L (21.0-32.0); CREATININE 1.37 mg/dL (0.55-1.02); Calcium 9.6 mg/dL (8.5-10.1); Chloride 104 mmol/L (98-107); Cholesterol 175 mg/dL (50-200); Estimated GFR 39.88 (mL/min/1.73m2); Glucose 127 mg/dL (70-100); HDL Cholesterol 56 mg/dL (40-60); LDL CHOLESTEROL 96 mg/dL (<100); Potassium 4.3 mmol/L (3.5-5.1); Sodium 142 mmol/L (136-145); Total Protein 7.2 g/dL (6.4-8.2); Triglyceride 66 mg/dL (30-150)
[2018-07-29 09:51] LABS: COMMENT (LAB VIEW ONLY) 31.75 mg/dL; Microalb ug/mg Crea 939.8 ug/mg Cr
== END 2018-07-29 08:16 ==
PROVIDERS: PCP Nurse Practitioner; Visit Provider Nurse Practitioner
DX: E11.9 Type 2 diabetes mellitus without complications (principal); Z95.828 Presence of other vascular implants and grafts
CPT/HCPCS: 36415; 80053; 80061; 83721; 85027; 82043; 82570; 83036

== ENCOUNTER 2018-08-26 14:37 | Outpatient (CLI) | payer MEDICARE, MEDICAID, SELFPAY ==
--- NOTE | 2018-08-26 14:26 | DI.RAD_ITS ---
SYMPTOMS/DIAGNOSIS: F/U LEFT RADIAL NECK FX, ? MILLIE-FREDERIC INJURY, DRUJ DISPLACEMENT LEFT WRIST: Two views were obtained. The requisition raises the possibility of disruption of the distal radioulnar joint. No gross disruption apparent on plain films. CT could be helpful in assessing the alignment of the radioulnar joint. No bony abnormality seen. LEFT ELBOW: Three views were obtained and show a previously described proximal radial fracture with a questioned increased impaction at the fracture site in comparison with previous examination of July 22. There does appear to be callus at the fracture site. There is increased resorption of the bones at the fracture site.
== END 2018-08-26 14:57 ==
PROVIDERS: PCP Nurse Practitioner; Referring Provider Nurse Practitioner; Visit Provider Student in an Organized Health Care Education/Training Program
DX: M79.632 Pain in left forearm (principal); S52.132D Displaced fracture of neck of left radius, subsequent encounter for closed fracture with routine healing; M25.532 Pain in left wrist; M25.522 Pain in left elbow
CPT/HCPCS: 99213; 73080; 73100

== ENCOUNTER → 2018-10-07 12:52 | Outpatient (BNVA) | payer MEDICARE, MEDICAID, SELFPAY | PROVIDERS: PCP Nurse Practitioner; Referring Provider Nurse Practitioner; Visit Provider Student in an Organized Health Care Education/Training Program | DX: S52.135D Nondisplaced fracture of neck of left radius, subsequent encounter for closed fracture with routine healing; X58.XXXD Exposure to other specified factors, subsequent encounter | CPT/HCPCS: 99213 ==

== ENCOUNTER 2019-04-22 11:04 | Outpatient (REF) | payer MEDICARE, MEDICAID, SELFPAY ==
[2019-04-22 19:44] LABS: ALT 16 U/L (14-59); AST 27 U/L (15-37); Albumin 2.2 g/dL (3.4-5.0); Alkaline Phosphatase 97 U/L (46-116); Anion Gap 7.9 mmol/L (3-11); BUN 33 mg/dL (7-18); Bilirubin, Total 0.4 mg/dL (0.2-1.0); CO2 26.1 mmol/L (21.0-32.0); CREATININE 2.02 mg/dL (0.55-1.02); Calcium 8.3 mg/dL (8.5-10.1); Chloride 106 mmol/L (98-107); Estimated GFR 25.39 (mL/min/1.73m2); Glucose 176 mg/dL (74-106); Potassium 4.8 mmol/L (3.5-5.1); Sodium 140 mmol/L (136-145)
== END 2019-04-22 11:24 ==
LOC: LBN 11:04
PROVIDERS: PCP Nurse Practitioner; Visit Provider Nurse Practitioner
DX: E11.9 Type 2 diabetes mellitus without complications (principal); E78.00 Pure hypercholesterolemia, unspecified
CPT/HCPCS: 80053

== ENCOUNTER 2019-05-05 14:10 | Outpatient (REF) | payer MEDICARE, MEDICAID, SELFPAY ==
[2019-05-05 18:43] LABS: Anion Gap 9.6 mmol/L (3-11); BUN 44 mg/dL (7-18); CO2 26.4 mmol/L (21.0-32.0); CREATININE 2.44 mg/dL (0.55-1.02); Calcium 8.8 mg/dL (8.5-10.1); Calculated LDL 140 mg/dL; Chloride 107 mmol/L (98-107); Cholesterol 241 mg/dL (<200); Estimated GFR 20.42 (mL/min/1.73m2); Glucose 127 mg/dL (74-106); HDL Cholesterol 52 mg/dL (40-60); Potassium 4.8 mmol/L (3.5-5.1); Sodium 143 mmol/L (136-145); Triglyceride 247 mg/dL (<150)
== END 2019-05-05 14:30 ==
LOC: LBN 14:10
PROVIDERS: PCP Nurse Practitioner; Visit Provider Nurse Practitioner
DX: E11.9 Type 2 diabetes mellitus without complications (principal); E78.00 Pure hypercholesterolemia, unspecified; R82.90 Unspecified abnormal findings in urine; R94.4 Abnormal results of kidney function studies
CPT/HCPCS: 80048; 80061; 87077; 87086; 87186

== ENCOUNTER 2019-05-07 06:57 | Outpatient (CLI) | payer MEDICARE, MEDICAID, SELFPAY ==
--- NOTE | 2019-05-07 12:34 | DI.US_ITS ---
EXAM: US RENAL CLINICAL HISTORY: Decreasing GFR TECHNIQUE: Ultrasound performed using standard protocol. COMPARISON: CTA AORTA W/RUNOFF from 10/03/2017 FINDINGS: An absent right kidney is again noted. Left kidney measures 12.3 centimeters long. There is renal cortical scarring noted. This can be see n on the CT scan from 10/03/2017. No renal mass, calculus or obstruction is seen. The prevoid urinary bladder volume is 106 cc. The bladder wall appears smooth. No intraluminal mass is present. Ureteral jet is visualized. Postvoid urinary bladder volume is 31 cc. IMPRESSION: 1. Absent right kidney. 2. Left renal cortical scarring. No renal mass or obstruction.
== END 2019-05-07 07:17 ==
PROVIDERS: PCP Nurse Practitioner; Visit Provider Nurse Practitioner
DX: R94.4 Abnormal results of kidney function studies (principal); N28.89 Other specified disorders of kidney and ureter; Q60.0 Renal agenesis, unilateral
CPT/HCPCS: 76770

== ENCOUNTER → 2019-05-28 14:25 | Outpatient (BNVA) | payer MEDICARE, MEDICAID, SELFPAY | PROVIDERS: PCP Nurse Practitioner; Referring Provider Nurse Practitioner; Visit Provider Internal Medicine Cardiovascular Disease | DX: I49.5 Sick sinus syndrome (principal); Z45.018 Encounter for adjustment and management of other part of cardiac pacemaker | CPT/HCPCS: 93279; 99213 ==

== ENCOUNTER 2019-06-11 07:13 | Outpatient (CLI) | payer MEDICARE, MEDICAID, SELFPAY ==
[2019-06-11 09:10] LABS: COMMENT (LAB VIEW ONLY) 33.31 mg/dL
[2019-06-11 09:14] LABS: COMMENT (LAB VIEW ONLY) 33.67 mg/dL; PROTEIN 358.7 mg/dL; Prot/Crea Ur Ratio 10.65
[2019-06-11 09:33] LABS: Albumin 2.6 g/dL (3.4-5.0); Anion Gap 10.1 mmol/L (3-11); BUN 52 mg/dL (7-18); CO2 26.9 mmol/L (21.0-32.0); Calcium 8.7 mg/dL (8.5-10.1); Chloride 105 mmol/L (98-107); Estimated GFR 19.85 (mL/min/1.73m2); PHOSPHORUS 3.5 mg/dL (2.6-4.7); Potassium 4.4 mmol/L (3.5-5.1); Sodium 142 mmol/L (136-145)
== END 2019-06-11 07:33 ==
PROVIDERS: PCP Nurse Practitioner; Visit Provider Internal Medicine
DX: R94.4 Abnormal results of kidney function studies (principal); Q60.0 Renal agenesis, unilateral; N18.4 Chronic kidney disease, stage 4 (severe)
CPT/HCPCS: 80051; 84520; 82040; 82043; 82310; 82565; 82570; 84100; 84156

== ENCOUNTER 2019-07-16 11:05 | Outpatient (CLI) | payer MEDICARE, MEDICAID, SELFPAY ==
[2019-07-16 12:22] LABS: Anion Gap 7.6 mmol/L (3-11); BUN 69 mg/dL (7-18); CO2 27.4 mmol/L (21.0-32.0); CREATININE 2.75 mg/dL (0.55-1.02); Calcium 8.6 mg/dL (8.5-10.1); Chloride 107 mmol/L (98-107); Estimated GFR 17.78 (mL/min/1.73m2); Glucose 113 mg/dL (74-106); Potassium 4.5 mmol/L (3.5-5.1); Sodium 142 mmol/L (136-145)
== END 2019-07-16 11:25 ==
PROVIDERS: PCP Nurse Practitioner; Visit Provider Nurse Practitioner
DX: N18.4 Chronic kidney disease, stage 4 (severe) (principal); R94.4 Abnormal results of kidney function studies
CPT/HCPCS: 36415; 80048

== ENCOUNTER 2019-07-17 16:43 | Emergency (ER) | payer MEDICARE, MEDICAID, SELFPAY ==
[2019-07-17] VITALS (31 sets, daily range): BP systolic 109–184; BP diastolic 76–97; PULSE 60–75; RESP 9–25; TEMP 36.5–37; O2SAT 94–100
--- NOTE | 2019-07-17 16:45 | DI.RAD_ITS ---
EXAM: XR PORTABLE CHEST AP CLINICAL HISTORY: chest pain TECHNIQUE: 2D digital imaging was performed. COMPARISON: XR CHEST 2V PA LATERAL from 12/27/2017 FINDINGS: MEDIASTINUM: Normal. HEART: Normal. PULMONARY VASCULATURE: Normal. LUNGS: Clear. PLEURAL SPACE: No pleural effusion or pneumothorax. BONE:There is a stable bone island in the posterior aspect of the left 6th rib. OTHER FINDINGS:The pacing wires are in stable position. IMPRESSION: No acute pulmonary findings. DATA REPOSITORY: RADIATION DOSE DELIVERED:
[2019-07-17] MEDS: Aspirin 81 MG CHEW 243 MG CH (17:01)
[2019-07-17] MEDS: Normal Saline Flush 10 ML SYR IVP (17:20)
[2019-07-17 17:33] LABS: Abs Immature Grans 0.02 k/cumm (0.0-0.09); Absolute Basophil Count 0.02 k/cumm (0.0-0.2); Absolute Lymphocyte Count 1.88 k/cumm (1.2-3.4); Absolute Monocyte Count 0.44 k/cumm (0.11-0.7); Absolute Neutrophil Count 8.15 k/cumm (1.2-6.7); Basophils % 0.2; Eosinophils % 0.9; HCT 34.8 % (36.0-46.0); HGB 11.8 g/dL (12.0-15.5); Immature Grans % 0.2 %; Lymphocytes % 17.7; Mean Corp. HGB Concentration 33.9 g/dL (32.0-36.0); Mean Corpuscular Hemoglobin 31.1 pg (27.0-33.0); Mean Corpuscular Volume 91.8 fL (80-95); Mean Platelet Volume 9.3 fL (8.0-11.0); Monocytes % 4.1; Neutrophils % 76.9; Platelet Count 297 x1000/uL (130-400); RBC 3.79 m/cumm (4.00-5.20); RBC Distribution Width 12.5 % (11.7-14.6); White Blood Cell Count 10.61 k/cumm (4.4-10.8)
--- NOTE | 2019-07-17 17:36 | ED.GENADUL_ITS ---
Discharge Plan Disposition Patient Disposition: AGAINST MEDICAL ADVICE Condition: Stable Discharge Details Chief Complaint: Chest Pain Clinical Impression: Chest pain Primary Care Provider: Rosaura Fragoso ED Provider: Ashleigh Ireland Home Meds and New Rx's Prescriptions: No Action insulin aspart U-100 [Novolog Flexpen U-100 Insulin] 100 unit/mL (3 mL) insulin pen See Rx Instructions subcut AC RF: 0 Vraylar 1.5 mg capsule 1.5 mg PO DAILY RF: 0 (DME) Blood Glucose Test strip See Dose Instructions .ROUTE .MEDSUPPLY Qty: 300 RF: 3 (DME) Adult Briefs - Large misc See Dose Instructions .ROUTE .MEDSUPPLY Qty: 150 RF: 12 benzonatate 200 mg capsule 200 mg PO TID PRN (Reason: cough) Qty: 15 RF: 0 lamotrigine 100 mg tablet 100 mg PO BID RF: 0 lorazepam 1 mg tablet 1 mg PO HS RF: 0 benztropine 0.5 mg tablet 0.5 mg PO HS RF: 0 atorvastatin 40 mg tablet 40 mg PO DAILY Qty: 90 RF: 3 Basaglar KwikPen U-100 Insulin 100 unit/mL (3 mL) insulin pen 35 unit subcut DAILY Qty: 15 RF: 12 lactulose 10 gram/15 mL solution 20 gm PO TID PRN (Reason: constipation) Qty: 946 RF: 1 acetaminophen [Acetaminophen Extra Strength] 500 mg tablet 1,000 mg PO TID PRN (Reason: fever or pain) Qty: 180 RF: 1 alpha lipoic acid 300 mg capsule 300 mg PO DAILY Qty: 90 RF: 3 multivitamin [Daily Multi-Vitamin] Tablet 1 tab PO DAILY Qty: 90 RF: 3 torsemide 20 mg tablet 20 mg PO DAILY RF: 0 amlodipine 5 mg tablet 5 mg PO DAILY RF: 0 (DME) pen needle, diabetic 31 gauge x 1/3 needle 1 ea Miscellaneous QID Qty: 100 RF: 3 Eliquis 5 mg tablet 2.5 mg PO BID Qty: 180 RF: 3 aspirin [Adult Aspirin Regimen] 81 mg tablet,delayed release (DR/EC) 81 mg PO DAILY Qty: 90 RF: 3 mirtazapine 15 mg Tablet 15 mg PO HS RF: 0 Discharge Instructions Instructions: Chest Pain (ED) Additional Instructions: You are signing out AGAINST MEDICAL ADVICE today. You understand the risk of signing out AGAINST MEDICAL ADVICE including the possibility of . Please immediately call your primary care doctor for reevaluation. For any return of your symptoms, if you consent to admission to the hospital for stress testing and further evaluation or for any worsening have immediate reevaluation in the emergency room. For chest pain, dizziness, weakness or return of symptoms please call 911. Discharge Data Discharge Date/Time-TO BE ENTERED AT DEPARTURE: 07/17/19 21:08 Medical Decision Making Is a 58-year-old patient presenting to the emergency room for complaints of chest pain which began 1 hour prior to arrival. Patient ports chest pain radia melvin toward her left arm and into her upper arm. Patient did report onset of dizziness when EMS arrived. Denies any diaphoresis, nausea, vomiting. Denies headache. Patient did report associated cough in the last 3 days although she attributes this to a possible developing bronchitis. Denies any associated fever or chills. Denies any nasal congestion, sore throat. Cough is dry, nonproductive. Patient denies any weakness, fatigue. No associated back pain. Denies shortness of breath or difficulty breathing associated. Patient reports chest pain described as 7 out of 10 and sharp with previously described radiating pattern. Patient arrives via EMS and has had no medications prior to arrival outside of her daily medications which does include apixaban and baby aspirin both which she did take today. Patient's medical history does include CT, peripheral arterial disease, sinus bradycardia and sinus node dysfunction, history of pacemaker, chronic kidney disease, stroke, type 2 diabetes and psych comorbidities. Patient initially worked up for coronary artery history disease. Labs ordered, EKG ordered as well as portable chest x-ray. After arrival patient ordered nitroglycerin, aspirin and fentanyl. IV access obtained. Initial EKG reveals sinus rhythm with a heart rate of 60, unchanged from previous EKG. No ST segment changes at this time. Consider old infarct. Reviewed with Pernell Dennis Patient reported mild improvement after first nitroglycerin from a 7 out of 10 to a 5 out of 10, second nitroglycerin improved to 3 out of 10 and after third nitroglycerin patient had full resolution of her chest pain. Fentanyl was held for that reason. Patient did receive additional aspirin p.o. At this time patient's pain is entirely relieved and she feels asymptomatic. Patient's labs reviewed, no leukocytosis, electrolytes within normal limits, BUN/creatinine as well as GFR continue to trend and slowly worsen compared to her baseline this is not a significant shift. Patient reports kidney function is being followed currently. Blood sugar 108. Initial troponin normal, BNP elevated at 1199. Patient is producing urine without difficulty. Patient's urinalysis does reveal white blood cells 10-20 per high-powered field and few bacteria, patient has no symptoms of urinary tract infection at this time urine culture pending. Chest x-ray unremarkable for acute abnormality Reevaluation of patient reveals continued improvement. No return of pain. Repeat troponin normal. At this time given patient's presentation in the emergency room, medical history, risk factors and heart score I recommended strongly that she be admitted to the hospital. Patient refuses admission to the hospital at this time. Patient reports she wants to be discharged home. Patient is aware of my concern of discharge home as I feel she is at risk for cardiac event if being discharged, including possibility of . I recommended strongly the patient remain in the hospital for further evaluation and management. She continues to refuse. I did try to reach out to this patient's primary care provider to again encourage admission to the hospital, PCP unavailable at this time. I had a discussion with the patient about my diagnostic/treatment plan. Patient declines plan and wishes to leave against medical advise. I reiterated my concerns to the patient and explained the risks of leaving prior to completion of workup and treatment. I specifically emphasized the possibility of life- threatening or lifestyle modifying disease that would no be appropriately treated if they leave. Patient verbalized understanding of my concerns and the potential for life threatening or lifestyle modifying disease. Patient has capacity to make informed decision. I again explained my concerns and urged the patient to stay for treatment as outlined. Patient continued to refuse. I then discussed potential less ideal alternatives to diagnostic/treatment plan as outlined and patiint refused. I recommended that the patient followup with primary care physician CRYSTAL or return to the Emergency Department at any timer for further treatment. Strongly recommended that if this patient has any return of symptoms or if she desires admission to the hospital to return immediately to the emergency room. I have encouraged and advised her to use 911 for any concerning symptoms. Melanie ent reports her understanding and continues to request discharge at this time. Patient will be signed out AMA. Encouraged immediate follow-up with her PCP HPI General Date/Time Provider Initiated Documentation: 07/17/19 16:50 . HPI Narrative: This is a 58-year-old patient to the emergency room today for complaints of chest pain. Patient reports 7 out of 10 chest pain which began approximately 1 hour prior to arrival while sitting watching TV. Patient denies any exertion prior to onset of chest pain. Patient reports left sided chest pain which radiates toward her left arm. Patient denies any right-sided pain, back pain or neck or jaw involvement. Patient does report associated dizziness which occurred when EMS arrived. Patient denies diaphoresis, nausea, vomiting. Denies headache. Patient denies any dizziness currently. Patient reports a persistent 7 out of 10 chest pain. She did take 1 baby aspirin this morning. Patient compliant with her daily medications. Patient does report cough for the last 3 days but no associated fever, chills, nasal congestion or sore throat. Patient is managed by home caretakers. Patient denies any bowel changes, diarrhea or constipation. Patient is urinating without difficulty, denies dysuria, urgency or frequency. Patient denies any change in lower extremity swelling. No leg pain. Denies weakness or fatigue. Patient reports she does have a history of pacemaker which was placed several years ago. Per medical chart patient has a history of sinus bradycardia and sinus node dysfunction. Denies history of CT. Related Data Home Medications Medication Instructions Recorded Confirmed mirtazapine 15 mg PO HS 12/27/17 07/17/19 cariprazine 1.5 mg capsule 1.5 mg PO DAILY 04/09/18 07/17/19 blood sugar diagnostic #300 each 05/06/18 05/28/19 lamotrigine 100 mg tablet 100 mg PO BID tab 05/09/18 07/17/19 lorazepam 1 mg tablet 1 mg PO HS 05/09/18 07/17/19 diaper,brief,adult,disposable #150 each 07/25/18 05/28/19 benztropine 0.5 mg tablet 0.5 mg PO HS tab 03/06/19 07/17/19 atorvastatin 40 mg tablet 40 mg PO DAILY #90 tab 03/25/19 07/17/19 insulin glargine 100 unit/mL (3 35 unit SUBCUT DAILY #15 ml 04/14/19 07/17/19 mL) subcutaneous pen lactulose 10 gram/15 mL oral 20 gm PO TID PRN #946 ml 05/12/19 07/17/19 solution acetaminophen 500 mg tablet 1,000 mg PO TID PRN #180 tab 05/15/19 07/17/19 alpha lipoic acid 300 mg capsule 300 mg PO DAILY #90 cap 05/15/19 07/17/19 multivitamin 1 tab PO DAILY #90 tab 05/15/19 07/17/19 torsemide 20 mg tablet 20 mg PO DAILY 05/15/19 07/17/19 insulin aspart U-100 100 unit/mL See Rx Instructions SUBCUT AC ml 05/28/19 07/17/19 (3 mL) subcutaneous pen amlodipine 5 mg tablet 5 mg PO DAILY 06/20/19 07/17/19 benzonatate 200 mg capsule 200 mg PO TID PRN #15 cap 06/30/19 07/17/19 pen needle, diabetic 31 gauge x #100 each 07/08/1904/25 apixaban 5 mg tablet 2.5 mg PO BID #180 tab 07/14/19 07/17/19 aspirin 81 mg tablet,delayed 81 mg PO DAILY #90 tab 07/14/19 07/17/19 release Previous Rx's Medication Instructions Recorded blood sugar diagnostic #300 each 05/06/18 diaper,brief,adult,disposable #150 each 07/25/18 atorvastatin 40 mg tablet 40 mg PO DAILY #90 tab 03/25/19 insulin glargine 100 unit/mL (3 35 unit SUBCUT DAILY #15 ml 04/14/19 mL) subcutaneous pen lactulose 10 gram/15 mL oral 20 gm PO TID PRN #946 ml 05/12/19 solution acetaminophen 500 mg tablet 1,000 mg PO TID PRN #180 tab 05/15/19 alpha lipoic acid 300 mg capsule 300 mg PO DAILY #90 cap 05/15/19 multivitamin 1 tab PO DAILY #90 tab 05/15/19 benzonatate 200 mg capsule 200 mg PO TID PRN #15 cap 06/30/19 pen needle, diabetic 31 gauge x #100 each 07/08/1904/25 apixaban 5 mg tablet 2.5 mg PO BID #180 tab 07/14/19 aspirin 81 mg tablet,delayed 81 mg PO DAILY #90 tab 07/14/19 release Allergies Allergy/AdvReac Type Severity Reaction Status Date / Time aripiprazole [From Abilify] Allergy Severe Verified 07/17/19 16:53 duloxetine HCl Allergy Severe Hives Verified 07/17/19 16:53 [From Cymbalta] oxycodone Allergy Severe Hives Verified 07/17/19 16:53 Sulfa (Sulfonamide Allergy Severe Skin Rash Verified 07/17/19 16:53 Antibiotics) amitriptyline Allergy Intermediate Verified 07/17/19 16:53 citalopram Allergy Intermediate HIVES Verified 07/17/19 16:53 fesoterodine Allergy Intermediate HIVES Verified 07/17/19 16:53 latex Allergy Intermediate Hives Verified 07/17/19 16:53 rabies vaccine, human Allergy Intermediate Verified 07/17/19 16:53 diploid cell [Rabies Vaccine,Human Diploid] Tetanus Vaccines and Toxoid Allergy Intermediate Swelling/Ed Verified 07/17/19 16:53 [Tetanus Vaccines & Toxoid] ghulam acetaminophen [From Vicodin] Allergy Unknown Verified 07/17/19 16:53 bupropion HCl Allergy Unknown Verified 07/17/19 16:53 [From Wellbutrin] celecoxib [From Celebrex] Allergy Unknown Verified 07/17/19 16:53 diazepam [From Valium] Allergy Unknown Verified 07/17/19 16:53 divalproex sodium Allergy Unknown Verified 07/17/19 16:53 [From Depakote] escitalopram oxalate Allergy Unknown Verified 07/17/19 16:53 [From Lexapro] fluoxetine HCl [From Prozac] Allergy Unknown Verified 07/17/19 16:53 fosphenytoin sodium Allergy Unknown Verified 07/17/19 16:53 [From Cerebyx] hydrocodone bitartrate Allergy Unknown Verified 07/17/19 16:53 [From Vicodin] morphine Allergy Unknown Verified 07/17/19 16:53 nicotine [From Nicoderm CQ] Allergy Unknown rash/hives Verified 07/17/19 16:53 paroxetine HCl [From Paxil] Allergy Unknown Verified 07/17/19 16:53 phenytoin sodium Allergy Unknown Verified 07/17/19 16:53 [From Dilantin] phenytoin sodium extended Allergy Unknown Verified 07/17/19 16:53 [From Dilantin] prednisone Allergy Unknown Verified 07/17/19 16:53 procaine HCl [From Novocain] Allergy Unknown Verified 07/17/19 16:53 quetiapine fumarate Allergy Unknown Verified 07/17/19 16:53 [From Seroquel] risperidone [From Risperdal] Allergy Unknown Verified 07/17/19 16:53 sertraline Allergy Unknown Hives Verified 07/17/19 16:53 trazodone Allergy Unknown Verified 07/17/19 16:53 venlafaxine HCl Allergy Unknown Verified 07/17/19 16:53 [From Effexor] thiothixene [Thiothixene] AdvReac Severe Nausea Verified 07/17/19 16:53 topiramate AdvReac Intermediate Nausea Verified 07/17/19 16:53 gabapentin AdvReac Unknown Severe Verified 07/17/19 16:53 dizziness, runs; vomiting lidocaine AdvReac Unknown Nausea Verified 07/17/19 16:53 ibuprofen AdvReac headache Verified 07/17/19 16:53 and nausea melatonin AdvReac nightmares Verified 07/17/19 16:53 varenicline tartrate AdvReac Psychosis Verified 07/17/19 16:53 [From Chantix] general anesthia Allergy Unknown Uncoded 07/17/19 16:53 ABSOLUTE CONTRAINDICATION AdvReac Severe Headache Uncoded 07/17/19 16:53 FOR MRI (disconnected RV pacer lead) General Stated Complaint: Chest Pain ASIM: 2 Review of Systems All systems reviewed & are unremarkable except as noted in HPI and below Constitutional Constitutional: Denies chills, Denies fatigue, Denies fever(s), Denies headache(s) and Denies malaise Eyes Eyes: Denies loss of vision ENT Ears, Nose, Mouth, and Throat: Denies change in voice, Reports dizziness, Denies headache(s), Denies hoarseness, Denies nasal obstruction, Denies neck pain and Denies sore throat Cardiovascular Cardiovascular: Reports chest pain, Reports chest pain at rest, Denies diaphoresis, Denies syncope, Denies rapid heart rate, Denies irregular heart rhythm, Reports leg edema (Baseline unchanged), Denies lightheadedness, Reports radiating jaw, neck or arm pain, Denies palpitations and Denies dyspnea Respiratory Respiratory: Reports cough, Denies excessive phlegm production, Denies pain on inspiration, Denies dyspnea and Denies wheezing Gastrointestinal Gastrointestinal: Denies abdominal pain, Denies diarrhea, Denies nausea and Denies vomiting Genitourinary Genitourinary: Denies urinary incontinence, Denies urinary hesitancy and Denies urinary urgency Musculoskeletal Musculoskeletal: Denies neck pain Neurologic Neurologic: Denies abnormal movements, Denies abnormal speech, Denies behavioral changes, Reports dizziness, Denies syncope, Denies headache(s), Denies localized weakness and Denies loss of vision Psychiatric Psychiatric: Denies behavioral changes Endocrine Endocrine: Denies fatigue and Denies palpitations Allergic/Immunologic Allergic/Immunologic: Denies wheezing [facility] Medical History Adult BMI > 30 (Chronic 06/07/15) Bipolar 1 disorder (Chronic) Cellulitis of toe of left foot (Resolved 05/17/17) Colonoscopy refused (Acute) Congenital single kidney (Chronic 03/08/15) by xray from [facility] 03/17/09 in scanned records Critical lower limb ischemia (Chronic) aorotbifemoral bypass on 08/29/27. Dyskinesia, tardive (Chronic 02/11/15) due to Abilify, did not resolve Memory deficit (Acute) Mental health disorder (Chronic 10/08/15) Meralgia paresthetica, right lower limb (Chronic 11/05/15) Dr. 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 Generator change 12/2013 [facility] [place] (Yariel [facility]HLIN). Pocket revision & new RV lead 10/2014 [facility] [place]. Sinus node dysfunction (Resolved 10/22/14) Solitary left kidney (Acute) Stroke (Chronic) R parietal; asymptomatic; Type 2 diabetes mellitus (Chronic) Vitreous hemorrhage, right eye (Resolved 07/24/17) [facility], Dr Kavita Palacios unknown duration and etiology Surgical History (Updated 06/20/19 @ 15:01 by Kristine Don RN) aortobifemoral bypass (09/07/17) [facility] [place] [facility]. August 2017 section (~1985) Pacemaker (~2004) Milian S/P aortobifemoral bypass surgery (Inactive) Social History Smoking/Tobacco Use Status: Current every day Tobacco Type: cigarettes Alcohol Intake: never Drug use: Never Substance use type: does not use Adopted: No Number of Children: 1 Do you need help understanding health information?: Always current occupation: disabliilty What type of physical activity do you participate in: walking Duration: 15-30 minutes/day Frequency: 3-4 times per week Do you feel safe at home: Yes Do you feel safe in your relationship?: Yes Exam Narrative Exam Narrative: CONST: Healthy appearing patient, in no acute distress. Well hydrated. Alert and oriented. HENMT: Head nomocephalic, normal to inspection. Atraumatic. Hearing grossly normal. External ear canal no erythema or swelling. TM normal bilaterally. Nose normal to inspection. No rhinnorhea. Normal facial exam. Oral mucosa normal. Tounge normal. Dentition normal. Normal posterior oropharynx. Uvula midline. EYES: General normal appearance. Alignment normal. Eyelids normal. Conjunctiva normal. Sclera normal. PERRL. NECK: Normal visual inspection. FROM. No lymphadenopathy. Trachea midline. No Midline tenderness. CHEST: Normal insepection of the chest. RESP: Normal respiratory effort. Speaking full sentences. No cough. No wheezing. No retractions. Clear to auscaltation. Breath sound equal and present bilaterally. CARDIO: No JVD. Normal PMI. Regular Rate. Regular Rhythm. Normal peripheral pulses. GI: Normal inspection of abdomen. No distension. Soft. Nontender. Bowel sounds present in all 4 quadrants. No rebound. No gaurding. MUSCULOSKELETAL: Normal Gait. FROM of all extremities. Distal neurovascularly intact. Sensation intact distally. Mild distal edema symmetrical bilaterally in lower extremities at the pretibial christiansen 1+ pitting SKIN: Normal. Dry. No rashes. NEURO: Alert and awake. Speech clear. PSYCH: Normal affect. Cooperative. Course Vital Signs Vital signs: Vital Signs Temperature 36.5 C 07/17/19 16:43 Pulse 69 07/17/19 16:43 Respiratory Rate 15 07/17/19 16:43 Blood Pressure 145/97 H 07/17/19 16:43 Pulse Oximetry 100 07/17/19 16:43 Temperature 36.5 C 07/17/19 16:43 Temperature Source Temporal Artery Scan 07/17/19 16:43 Pulse 67 07/17/19 17:12 Respiratory Rate 15 07/17/19 17:12 Respiratory Effort Non-Labored 07/17/19 16:51 Blood Pressure 145/97 H 07/17/19 16:43 Pulse Oximetry 100 07/17/19 16:43 Oxygen Delivery Method Room Air 07/17/19 16:43 Oxygen Flow Rate 0 07/17/19 16:43 Pain Level 2 07/17/19 17:28
[2019-07-17 17:45] LABS: Bilirubin Negative (Negative); Blood Small (Negative); Clarity Clear (Clear); Glucose 100 mg/dL (Negative); Ketones Negative (Negative); Leukocyte Esterase Negative (Negative); Nitrite Negative (Negative); Specific Gravity 1.025 (1.005-1.025); Urobilinogen 0.2 EU/dL (Up TO 0.2); pH 6.5 (5-8)
--- NOTE | 2019-07-17 17:56 | DI.VRAD_ITS ---
PROCEDURE INFORMATION: Exam: XR Chest, 1 View Exam date and time: 07/17/2019 17:50 Age: 58 years old Clinical indication: Other: Chest pain TECHNIQUE: Imaging protocol: XR of the chest Views: 1 view. COMPARISON: CR XR CHEST 2V PA LATERAL 12/27/2017 18:35 FINDINGS: Tubes, catheters and devices: Left chest wall 3 lead pacemaker in stable configuration. Lungs: No airspace consolidation. No significant interstitial disease for the degree of inflation. Pleural space: No significant pleural effusion. No pneumothorax. Heart/Mediastinum: No cardiomegaly. Bones/joints: The small sclerotic lesion projecting over the left posterior 6th rib is stable and may reflect a likely bone island or benign pulmonary granuloma, former favored. IMPRESSION: No acute cardiopulmonary pathology. Dictated and Authenticated by: Alexandria De Guzman MD. Ordering:ELEUTERIO Sotelo MD
[2019-07-17 17:57] LABS: Epithelial Cells Rare HPF (Negative)
[2019-07-17 17:58] LABS: Bacteria Few HPF (Negative); C & S Indicated? Yes; Casts Negative LPF (Negative); Crystals Negative HPF (Negative); Mucus Trace (Negative); Other Cells Negative (Negative)
[2019-07-17 17:59] LABS: ALT 27 U/L (14-59); AST 18 U/L (15-37); Albumin 2.5 g/dL (3.4-5.0); Alkaline Phosphatase 98 U/L (46-116); Anion Gap 9.3 mmol/L (3-11); BUN 65 mg/dL (7-18); Bilirubin, Total 0.3 mg/dL (0.2-1.0); CO2 25.7 mmol/L (21.0-32.0); Chloride 106 mmol/L (98-107); NT-proBNP 1199 pg/mL (<300); Potassium 4.4 mmol/L (3.5-5.1); Sodium 141 mmol/L (136-145); Total Protein 6.3 g/dL (6.4-8.2); Troponin I < 0.05 ng/Ml (<0.06)
[2019-07-17 18:01] LABS: CREATININE 2.74 mg/dL (0.55-1.02); Calcium 8.9 mg/dL (8.5-10.1); Estimated GFR 17.86 (mL/min/1.73m2); Glucose 108 mg/dL (74-106)
--- NOTE | 2019-07-17 19:00 | NUR.NOTE ---
pt provided with sandwich and diet [facility] Nursing Note:
[2019-07-17 20:22] LABS: Troponin I < 0.05 ng/Ml (<0.06)
== END 2019-07-17 21:08 | disposition left against medical advice (07) ==
PROVIDERS: Emergency Provider Physician Assistant; PCP Nurse Practitioner
DX: R07.9 Chest pain, unspecified (principal); R42 Dizziness and giddiness; R05 Cough; Z53.29 Procedure and treatment not carried out because of patient's decision for other reasons; N18.4 Chronic kidney disease, stage 4 (severe); E11.22 Type 2 diabetes mellitus with diabetic chronic kidney disease; Z79.4 Long term (current) use of insulin; F17.210 Nicotine dependence, cigarettes, uncomplicated
CPT/HCPCS: 36415; 80053; 93005; 99285; 71045; 81003; 81015; 83735; 83880; 84484; 85025; 87086; 93010

== ENCOUNTER 2019-08-14 01:33 | Outpatient (CLI) | payer MEDICARE, MEDICAID, SELFPAY ==
[2019-08-14 13:36] LABS: HCT 34.2 % (36.0-46.0); HGB 11.6 g/dL (12.0-15.5); Mean Corp. HGB Concentration 33.9 g/dL (32.0-36.0); Mean Corpuscular Hemoglobin 31.1 pg (27.0-33.0); Mean Corpuscular Volume 91.7 fL (80-95); Mean Platelet Volume 9.5 fL (8.0-11.0); Platelet Count 298 x1000/uL (130-400); RBC 3.73 m/cumm (4.00-5.20); RBC Distribution Width 12.8 % (11.7-14.6); White Blood Cell Count 9.91 k/cumm (4.4-10.8)
[2019-08-14 14:36] LABS: Iron 93 ug/dL (50-170); Total Iron Binding Capacity 275 ug/dL (250-450); Transferrin Sat 34 % (15-50)
[2019-08-14 14:40] LABS: Albumin 2.3 g/dL (3.4-5.0); Anion Gap 10.5 mmol/L (3-11); BUN 58 mg/dL (7-18); CO2 24.5 mmol/L (21.0-32.0); CREATININE 3.22 mg/dL (0.55-1.02); Calcium 8.4 mg/dL (8.5-10.1); Chloride 105 mmol/L (98-107); Estimated GFR 14.77 (mL/min/1.73m2); Glucose 164 mg/dL (74-106); PHOSPHORUS 5.1 mg/dL (2.6-4.7); Potassium 4.5 mmol/L (3.5-5.1); Sodium 140 mmol/L (136-145)
[2019-08-14 15:07] LABS: Ferritin 137 ng/mL (8-252)
[2019-08-15 10:20] LABS: Parathyroid Hormone,Intact 145 pg/mL (19-88)
== END 2019-08-14 01:53 ==
PROVIDERS: PCP Nurse Practitioner; Visit Provider Internal Medicine Nephrology
DX: N25.81 Secondary hyperparathyroidism of renal origin (principal); N18.4 Chronic kidney disease, stage 4 (severe)
CPT/HCPCS: 36415; 80069; 85027; 82728; 83540; 83550; 83970

== ENCOUNTER → 2020-02-11 10:53 | Outpatient (BNVA) | payer MEDICARE, MEDICAID, SELFPAY | PROVIDERS: PCP Nurse Practitioner; Referring Provider Nurse Practitioner; Visit Provider Physician Assistant | DX: I49.5 Sick sinus syndrome (principal); Z45.018 Encounter for adjustment and management of other part of cardiac pacemaker | CPT/HCPCS: 93279; 99212 ==

== ENCOUNTER 2020-04-09 15:01 | Emergency (ER) | payer MEDICARE, MEDICAID, SELFPAY ==
[2020-04-09 15:07] VITALS: BP 130/99; PULSE 93; RESP 18; TEMP 37; O2SAT 97
--- NOTE | 2020-04-09 15:15 | DI.CT_ITS ---
EXAM: CT RENAL COLIC WO CLINICAL HISTORY: SOlitary kidney, L flank pain, dialysis pt. TECHNIQUE: Imaging Protocol: Axial computed tomography images with coronal and sagittal reformatted images were created and reviewed. The lack of IV contrast does limit evaluation of the abdominal org ans. COMPARISON: CT CTA AORTA W/RUNOFF from 08/17/2017 CT CTA AORTA W/RUNOFF from 10/03/2017 FINDINGS: The examination is limited due to patient motion artifact. The patient refused to hold her breath. ABDOMEN: Lung Bases: Normal where visualized. Liver: Normal density. No measurable mass. Gallbladder and biliary tract: Cholelithiasis. No biliary ductal dilatation. Pancreas: There again seen calcifications in the head of the pancreas. There is atrophy of the body and tail of the pancreas. This is unchanged. Spleen: Normal. Kidneys: There is again seen absence of the right kidney.The left kidney shows no evidence of nephrol ithiasis or hydronephrosis. There is compensatory hypertrophy of the left kidney. There does appear to be mild scarring of the left kidney. No masses seen. Adrenal glands: Both adrenal glands are present and unremarkable. Lymph nodes: Non-specific mildly enlarged left periaortic lymph nodes are present. Abdominal Aorta: There is an aorto bi iliac graft. There is atherosclerosis of the [place] abdominal aorta and its runoff. PELVIS: Bladder:Symmetric distention, no gross wall thickening. Bowel: No obstruction or bowel wall thickening. No evidence of acute appendicitis. There is a large amount of retained stool. Peritoneal cavity: No ascites, collection or mesenteric inflammatory response Reproductive organs: Within normal limits. Bones: Within normal limits. Soft Tissues: Within normal limits. IMPRESSION: 1. There is again seen a solitary left kidney. No evidence of nephrolithiasis or hydronephrosis. 2. Cholelithiasis. No biliary ductal dilatation. 3. Aorto bi-iliac graft. RADIATION DOSE DELIVERED: 866.04mGy.cm Total DLP DATA REPOSITORY: All CT scans at this facility are submitted to the National Radiology Data Registry (NRDR) Dose Index Registry (DIR) with the [employer] (A[employer]). RADIATION OPTIMIZATION: All CT scans at this facility use at least one of these dose optimization te chniques: automated exposure control; mA and/or kV adjustment per patient size (includes targeted exa ms where dose is matched to clinical indication); or iterative reconstruction.
--- NOTE | 2020-04-09 15:24 | ED.GENADUL_ITS ---
Discharge Plan Disposition Patient Disposition: HOME Condition: Improving Discharge Details Clinical Impression: Urinary tract infection Primary Care Provider: Rosaura Fragoso ED Provider: bL Crouch Home Meds and New Rx's Prescriptions: New cephalexin 500 mg capsule 500 mg PO BID 10 Days Qty: 20 RF: 0 Continued insulin aspart U-100 [Novolog Flexpen U-100 Insulin] 100 unit/mL (3 mL) insulin pen See Rx Instructions subcut AC RF: 0 mirtazapine 15 mg tablet 15 mg PO QHS RF: 0 sevelamer carbonate [Renvela] 800 mg tablet 800 mg PO TID RF: 0 Vraylar 1.5 mg capsule 1.5 mg PO Q OTHER DAY RF: 0 acetylcysteine [NAC] 600 mg capsule 600 mg PO BID RF: 0 (DME) Blood Glucose Test strip See Dose Instructions .ROUTE .MEDSUPPLY Qty: 300 RF: 3 (DME) Adult Briefs - Large misc See Dose Instructions .ROUTE .MEDSUPPLY Qty: 150 RF: 12 amlodipine 10 mg tablet 10 mg PO DAILY Qty: 90 RF: 3 lamotrigine 100 mg tablet 100 mg PO BID RF: 0 lorazepam 1 mg tablet 1 mg PO HS RF: 0 benztropine 0.5 mg tablet 0.5 mg PO HS RF: 0 acetaminophen [Acetaminophen Extra Strength] 500 mg tablet 1,000 mg PO TID PRN (Reason: fever or pain) Qty: 180 RF: 1 alpha lipoic acid 300 mg capsule 300 mg PO DAILY Qty: 90 RF: 3 multivitamin [Daily Multi-Vitamin] Tablet 1 tab PO DAILY Qty: 90 RF: 3 Eliquis 5 mg tablet 2.5 mg PO BID Qty: 180 RF: 3 aspirin [Adult Aspirin Regimen] 81 mg tablet,delayed release (DR/EC) 81 mg PO DAILY Qty: 90 RF: 3 cyanocobalamin (vitamin B-12) [Vitamin B-12] 500 mcg tablet 500 mcg PO DAILY RF: 0 torsemide 20 mg tablet 40 mg PO DAILY RF: 0 (DME) pen needle, diabetic 31 gauge x 1/3 needle 1 ea Miscellaneous QID Qty: 100 RF: 3 nystatin 100,000 unit/gram powder 1 applic topical BID Qty: 60 RF: 1 atorvastatin 40 mg tablet 40 mg PO DAILY Qty: 90 RF: 3 Basaglar KwikPen U-100 Insulin 100 unit/mL (3 mL) insulin pen 35 unit subcut DAILY RF: 0 Discharge Instructions Instructions: Urinary Tract Infection in Women (ED) Additional Instructions: I discussed your case with the on-call physician for the dialysis center. We will have you take cephalexin/Keflex 500 mg every 12 hours (twice a day) for 10 days time. This is to be taken after dialysis on your dialysis days. Continue your regular medications. May use the provided Zofran/ondansetron if needed for nausea. Return to the ER for any acute concerns. Medical Decision Making 59-year-old female presents following her scheduled dialysis. She states she woke this morning with constant dull left flank pain that is nonradiating and persistent throughout hours time. She has not had a fever, no rash, no abdominal complaints and notes no change to her urine output today. She arrives with a blood pressure 130/99, pulse 90, afebrile at 37. Her abdomen is benign and she is tender with palpation overlying the left flank, reproducing her pain. Different diagnosis includes myofascial strain, lumbar disc disease, UTI or renal colic. Patient with a long list of allergies and intolerances. She had received acetaminophen at dialysis today. She was given tramadol by mouth and referred for laboratory testing, urinalysis, CT scan of the abdomen pelvis without contrast. Labs: White count 8.9, hematocrit 35, platelets 224. Sodium 135, potassium 3.3, chloride 98, bicarb 31, BUN 16, creatinine 2.4. Urinalysis positive for leuk esterase with greater than 50 white blood cells and many bacteria. Culture pending. CT reveals scarring of the left kidney, no left-sided hydronephrosis or renal calculi. Aortoiiliac stents in place. Large gallstone noted, small umbilical hernia. No other acute findings. Consistent with a sending urinary tract infection/pyelonephritis. Discussed with on-call nephrology at [facility] [place] as well as virtual pharmacist. Will place on Keflex 500 mg every 12 hours, to be taken after dialysis on dialysis days. She will follow-up with dialysis as planned for her next scheduled run. She is stable and improved. HPI General Mode of arrival: ambulatory . Date/Time Provider Initiated Documentation: 04/09/20 15:03 . Limitations to Documentation: no limitations . Information obtained by: patient . History of Present Illness 59 year old F presents to the emergency department with the chief complaint of Left flank pain this morning, described as moderate, Quality is described as dull and constant, and is localized to the back and left. Patient reports no radiatio n. Patient started experiencing this hour(s) and it has been constant. No relieving factors improve symptom(s), No exacerbating factors reported . Patient notes denies fever/chills, loss of appetite and nausea/vomiting. Patient did receive the following treatments prior to arrival, none Related Data Home Medications Medication Instructions Recorded Confirmed blood sugar diagnostic #300 each 05/06/18 04/09/20 lamotrigine 100 mg tablet 100 mg PO BID tab 05/09/18 04/09/20 lorazepam 1 mg tablet 1 mg PO HS 05/09/18 04/09/20 diaper,brief,adult,disposable #150 each 07/25/18 04/09/20 benztropine 0.5 mg tablet 0.5 mg PO HS tab 03/06/19 04/09/20 acetaminophen 500 mg tablet 1,000 mg PO TID PRN #180 tab 05/15/19 04/09/20 alpha lipoic acid 300 mg capsule 300 mg PO DAILY #90 cap 05/15/19 04/09/20 multivitamin 1 tab PO DAILY #90 tab 05/15/19 04/09/20 insulin aspart U-100 100 unit/mL See Rx Instructions SUBCUT AC ml 05/28/19 04/09/20 (3 mL) subcutaneous pen apixaban 5 mg tablet 2.5 mg PO BID #180 tab 07/14/19 04/09/20 aspirin 81 mg tablet,delayed 81 mg PO DAILY #90 tab 07/14/19 04/09/20 release cyanocobalamin (vitamin B-12) 500 500 mcg PO DAILY 08/05/19 04/09/20 mcg tablet torsemide 20 mg tablet 40 mg PO DAILY tab 08/08/19 04/09/20 pen needle, diabetic 31 gauge x #100 each 01/05/20 04/09/2004/25 nystatin 100,000 unit/gram topical 1 applic TOPICAL BID #60 g 02/04/20 04/09/20 powder acetylcysteine 600 mg capsule 600 mg PO BID 02/11/20 04/09/20 cariprazine 1.5 mg capsule 1.5 mg PO Q OTHER DAY 02/11/20 04/09/20 mirtazapine 15 mg tablet 15 mg PO QHS 02/11/20 04/09/20 sevelamer carbonate 800 mg tablet 800 mg PO TID 02/11/20 04/09/20 amlodipine 10 mg tablet 10 mg PO DAILY #90 tab 03/29/20 04/09/20 atorvastatin 40 mg tablet 40 mg PO DAILY #90 tab 04/08/20 04/09/20 Basaglliliana [place]ado U-100 Insulin 35 unit SUBCUT DAILY 04/09/20 04/09/20 cephalexin 500 mg PO BID 10 Days #20 cap 04/09/20 Previous Rx's Medication Instructions Recorded blood sugar diagnostic #300 each 05/06/18 diaper,brief,adult,disposable #150 each 07/25/18 acetaminophen 500 mg tablet 1,000 mg PO TID PRN #180 tab 05/15/19 alpha lipoic acid 300 mg capsule 300 mg PO DAILY #90 cap 05/15/19 multivitamin 1 tab PO DAILY #90 tab 05/15/19 apixaban 5 mg tablet 2.5 mg PO BID #180 tab 07/14/19 aspirin 81 mg tablet,delayed 81 mg PO DAILY #90 tab 07/14/19 release pen needle, diabetic 31 gauge x #100 each 01/05/20/ nystatin 100,000 unit/gram topical 1 applic TOPICAL BID #60 g 02/04/20 powder amlodipine 10 mg tablet 10 mg PO DAILY #90 tab 03/29/20 atorvastatin 40 mg tablet 40 mg PO DAILY #90 tab 04/08/20 cephalexin 500 mg PO BID 10 Days #20 cap 04/09/20 Allergies Allergy/AdvReac Type Severity Reaction Status Date / Time aripiprazole [From Abilify] Allergy Severe Verified 04/09/20 16:04 duloxetine HCl Allergy Severe Hives Verified 04/09/20 16:04 [From Cymbalta] oxycodone Allergy Severe Hives Verified 04/09/20 16:04 Sulfa (Sulfonamide Allergy Severe Skin Rash Verified 04/09/20 16:04 Antibiotics) amitriptyline Allergy Intermediate Verified 04/09/20 16:04 citalopram Allergy Intermediate HIVES Verified 04/09/20 16:04 fesoterodine Allergy Intermediate HIVES Verified 04/09/20 16:04 latex Allergy Intermediate Hives Verified 04/09/20 16:04 rabies vaccine, human Allergy Intermediate Verified 04/09/20 16:04 diploid cell [Rabies Vaccine,Human Diploid] Tetanus Vaccines and Toxoid Allergy Intermediate Swelling/Ed Verified 04/09/20 16:04 [Tetanus Vaccines & Toxoid] ghulam acetaminophen [From Vicodin] Allergy Unknown Verified 04/09/20 16:04 bupropion HCl Allergy Unknown Verified 04/09/20 16:04 [From Wellbutrin] celecoxib [From Celebrex] Allergy Unknown Verified 04/09/20 16:04 diazepam [From Valium] Allergy Unknown Verified 04/09/20 16:04 divalproex sodium Allergy Unknown Verified 04/09/20 16:04 [From Depakote] escitalopram oxalate Allergy Unknown Verified 04/09/20 16:04 [From Lexapro] fluoxetine HCl [From Prozac] Allergy Unknown Verified 04/09/20 16:04 fosphenytoin sodium Allergy Unknown Verified 04/09/20 16:04 [From Cerebyx] hydrocodone bitartrate Allergy Unknown Verified 04/09/20 16:04 [From Vicodin] morphine Allergy Unknown Verified 04/09/20 16:04 nicotine [From Nicoderm CQ] Allergy Unknown rash/hives Verified 04/09/20 16:04 paroxetine HCl [From Paxil] Allergy Unknown Verified 04/09/20 16:04 phenytoin sodium Allergy Unknown Verified 04/09/20 16:04 [From Dilantin] phenytoin sodium extended Allergy Unknown Verified 04/09/20 16:04 [From Dilantin] prednisone Allergy Unknown Verified 04/09/20 16:04 procaine HCl [From Novocain] Allergy Unknown Verified 04/09/20 16:04 quetiapine fumarate Allergy Unknown Verified 04/09/20 16:04 [From Seroquel] risperidone [From Risperdal] Allergy Unknown Verified 04/09/20 16:04 sertraline Allergy Unknown Hives Verified 04/09/20 16:04 trazodone Allergy Unknown Verified 04/09/20 16:04 venlafaxine HCl Allergy Unknown Verified 04/09/20 16:04 [From Effexor] thiothixene [Thiothixene] AdvReac Severe Nausea Verified 04/09/20 16:04 topiramate AdvReac Intermediate Nausea Verified 04/09/20 16:04 gabapentin AdvReac Unknown Severe Verified 04/09/20 16:04 dizziness, runs; vomiting lidocaine AdvReac Unknown Nausea Verified 04/09/20 16:04 ibuprofen AdvReac headache Verified 04/09/20 16:04 and nausea melatonin AdvReac nightmares Verified 04/09/20 16:04 varenicline tartrate AdvReac Psychosis Verified 04/09/20 16:04 [From Chantix] ABSOLUTE CONTRAINDICATION AdvReac Severe Headache Uncoded 04/09/20 16:04 FOR MRI (disconnected RV pacer lead) general anesthia AdvReac Unknown Uncoded 04/09/20 16:04 General Stated Complaint: FlankPain ASIM: 3 Review of Systems Narrative: 6 systems reviewed and otherwise negative. Sunday dialysis which was normal today. No change to urine output. [facility] Medical History Adult BMI > 30 (06/07/15) Bipolar 1 disorder Cellulitis of toe of left foot (05/17/17) Colon cancer screening declined Colonoscopy refused Congenital single kidney (03/08/15) by xray from [facility] 03/17/09 in scanned records Critical lower limb ischemia aorotbifemoral bypass on 08/29/27. Discoloration and thickening of nails both feet Dyskinesia, tardive (02/11/15) due to Abilify, did not resolve Hemodialysis patient Mammogram declined Memory deficit Mental health disorder (10/08/15) Meralgia paresthetica, right lower limb (11/05/15) Dr. 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 Generator change 12/2013 [facility] (Yariel [facility]IN). Pocket revision & new RV lead 10/2014 [facility]. Sinus node dysfunction (10/22/14) Solitary left kidney Stroke R parietal; asymptomatic; Type 2 diabetes mellitus Vitreous hemorrhage, right eye (07/24/17) [facility], Dr Kavita Palacios unknown duration and etiology Surgical History aortobifemoral bypass (09/07/17) [facility] vascular. August 2017 section (~1985) Pacemaker (~2004) [place] S/P angioplasty (01/30/18) left femoral endarterectomy and patch angioplasty, Aortogram, Over the wire Left ABF graft thrombectomy, Open ledt ABF thrombectomy, left ABF graft stent (VBX 8x39) S/P aortobifemoral bypass surgery Family History Mother No problems noted. Father No problems noted. Sister No problems noted. Social History Smoking/Tobacco Use Status: Current every day Tobacco Type: cigarettes Smoking risk assessment performed?: Yes Alcohol Intake: never Drug use: Never Substance use type: does not use Adopted: No Number of Children: 1 Do you need help understanding health information?: Always current occupation: disabliilty What type of physical activity do you participate in: walking Duration: 15-30 minutes/day Frequency: 3-4 times per week Do you feel safe at home: Yes Do you feel safe in your relationship?: Yes Exam Narrative Exam Narrative: GEN: awake, alert, oriented 3. Pleasant, well groomed, interactive. HEAD: Normocephalic, atraumatic ENT: Mucous membranes moist, oropharynx unremarkable, External ear exam unremar kable EYES: PERRL, EOMI NECK: Full ROM, no MINAL, no menigismus CHEST/RESP: Nontender, clear to auscultation bilateral, no wheeze/rhonchi/rales CARDIOVASCULAR: RRR, no murmur, rub yoli. 2+ Rad pulse bilateral ABDOMEN: Soft, nontender, no mass. +Bowel sounds Back: Left flank tender to palpation from midline and lateral. No rash appreciated. EXT: Full ROM, no edema, no rash Neuro: Grossly normal neurologic exam, conversant, interactive. Psych: Speech fluent, thoughts congruent, affect normal Course Vital Signs Vital signs: Vital Signs Temperature 37.0 C 04/09/20 15:07 Pulse 93 H 04/09/20 15:07 Respiratory Rate 18 04/09/20 15:07 Blood Pressure 130/99 H 04/09/20 15:07 Pulse Oximetry 97 04/09/20 15:07 Temperature 37.0 C 04/09/20 15:07 Temperature Source Skin 04/09/20 15:07 Pulse 93 H 04/09/20 15:07 Respiratory Rate 18 04/09/20 15:07 Respiratory Effort 04/09/20 15:11 Blood Pressure 130/99 H 04/09/20 15:07 Blood Pressure Position Sitting 04/09/20 15:07 Pulse Oximetry 97 04/09/20 15:07 Oxygen Delivery Method Room Air 04/09/20 15:07 Oxygen Flow Rate 0 04/09/20 15:07 Pain Level 9 04/09/20 15:07
[2020-04-09 15:35] LABS: Abs Immature Grans 0.02 10^3/uL (0.0-0.06); Absolute Basophil Count 0.05 10^3/uL (0.0-0.2); Absolute Eosinophil Count 0.08 10^3/uL (0.0-0.7); Absolute Lymphocyte Count 1.55 10^3/uL (1.2-3.4); Absolute Monocyte Count 0.43 10^3/uL (0.1-0.8); Absolute Neutrophil Count 6.77 10^3/uL (1.2-6.7); Basophils % 0.6; Eosinophils % 0.9; HCT 35.1 % (36.0-46.0); Immature Grans % 0.2; Lymphocytes % 17.4; MCH 31.5 pg (27.0-33.0); MCHC 34.2 % (32.0-36.0); MCV 92.1 fL (80-95); MPV 9.2 fL (8.0-11.0); Monocytes % 4.8; Neutrophils % 76.1; Nucleated RBC 0 %; Platelet Count 224 10^3/uL (130-400); RBC 3.81 10^6/uL (3.93-5.22); RDW 13.3 % (11.7-14.6); RDW-SD 44.9 fL
[2020-04-09 15:48] LABS: ALT 20 U/L (14-59); AST 27 U/L (15-37); Albumin 2.3 g/dL (3.4-5.0); Alkaline Phosphatase 112 U/L (46-116); Anion Gap 5.2 mmol/L (3-11); BUN 16 mg/dL (7-18); Bilirubin, Total 0.3 mg/dL (0.2-1.0); CO2 31.8 mmol/L (21.0-32.0); CREATININE 2.46 mg/dL (0.55-1.02); Calcium 8.6 mg/dL (8.5-10.1); Chloride 98 mmol/L (98-107); Estimated GFR 20.15 (mL/min/1.73m2); Glucose 121 mg/dL (74-106); Potassium 3.3 mmol/L (3.5-5.1); Sodium 135 mmol/L (136-145)
[2020-04-09] MEDS: traMADol 50 MG TAB PO (15:50)
[2020-04-09] MEDS: Ondansetron O.D.T. 4 MG TABEF PO (16:39)
[2020-04-09 16:47] VITALS: BP 162/80; PULSE 87; RESP 18; TEMP 36.7; O2SAT 98
--- NOTE | 2020-04-09 16:50 | DI.VRAD_ITS ---
PROCEDURE INFORMATION: Exam: CT Abdomen And Pelvis Without Contrast Exam date and time: 04/09/2020 3:24 PM Age: 59 years old Clinical indication: Other: Solitary kidney, L flank pain, dialysis PT; Patient HX: PT states born with just lt kidney TECHNIQUE: Imaging protocol: Computed tomography of the abdomen and pelvis without contrast. COMPARISON: CR RT HIP COMPLETE AP PELVIS 12/13/2014 5:28 PM FINDINGS: Lungs: The lung bases are clear. Liver: Normal. No mass. Gallbladder and bile ducts: A large gallstone. Pancreas: Normal. No ductal dilation. Spleen: Normal. No splenomegaly. Adrenal glands: Normal. No mass. Kidneys and ureters: An absent right kidney he Mild cortical scars in an enlarged left kidney. No left-sided hydronephrosis. Next No left-sided renal calculi. Stomach and bowel: Unremarkable. No obstruction. No mucosal thickening. Appendix: No evidence of appendicitis. Intraperitoneal space: Unremarkable. No free air. No significant fluid collection. Vasculature: Aorto bi iliac stent grafts. Lymph nodes: Unremarkable. No enlarged lymph nodes. Urinary bladder: Unremarkable as visualized. Reproductive: Normal uterus Bones/joints: Unremarkable. No acute fracture. Soft tissues: A small umbilical hernia IMPRESSION: 1. Nonvisualization of the right kidney. Possibly congenitally absent. 2. Mild areas of scarring in the left kidney. No left-sided hydronephrosis or renal calculi. 3. Aorto bi iliac stent grafts in place 4. A large gallstone 5. A small umbilical hernia Dictated and Authenticated by: Jonathan Russell MD. Ordering:ERIN Asher MD
[2020-04-09 17:37] LABS: Bilirubin Negative (Negative); Blood Trace-intact (Negative); Clarity Cloudy (Clear); Glucose 250 mg/dL (Negative); Ketones Negative (Negative); Leukocyte Esterase Small (Negative); Nitrite Negative (Negative); Urobilinogen 0.2 EU/dL (Up TO 0.2); pH 8.5 (5-8)
[2020-04-09 17:46] LABS: WBC >50 HPF (0-5)
[2020-04-09 17:47] LABS: Bacteria Many HPF (Negative); C & S Indicated? Yes
[2020-04-09] MEDS: Cephalexin 500 MG CAP, 2 CAPS/BTL PO (18:23)
[2020-04-09] MEDS: Ondansetron O.D.T. 4 MG TABEF, 3 TABS/BTL PO (18:23)
[2020-04-09 18:30] VITALS: BP 136/86; PULSE 86; RESP 17; TEMP 36.5; O2SAT 98
--- NOTE | 2020-04-10 15:06 | NUR.NOTE ---
Nursing Note: Received call regarding patient and vomitting. Per .net developer pt has not tried Zofran as dispensed as she was not aware pt had the bottle. Will trial giving Zofran now and hold anything PO for next hour. IF pt continues to vomit it was recommended pt return to ED for further assessment. Additional #10 tablets of Zofran 4mg PO called in to [facility] in [place] per orders Dr. Crouch.
== END 2020-04-09 18:50 | disposition home or self-care (01) ==
PROVIDERS: Emergency Provider Emergency Medicine; PCP Nurse Practitioner
DX: N39.0 Urinary tract infection, site not specified (principal); B95.2 Enterococcus as the cause of diseases classified elsewhere; Z99.2 Dependence on renal dialysis; I12.0 Hypertensive chronic kidney disease with stage 5 chronic kidney disease or end stage renal disease; N18.6 End stage renal disease; E11.22 Type 2 diabetes mellitus with diabetic chronic kidney disease; Z79.4 Long term (current) use of insulin
CPT/HCPCS: 36415; 80053; 87077; 99284; 74176; 81003; 81015; 85025; 87086; 87186

== ENCOUNTER 2020-04-10 17:26 | Emergency (ER) | payer MEDICARE, MEDICAID, SELFPAY ==
[2020-04-10 17:31] VITALS: BP 209/86; PULSE 89; RESP 16; TEMP 36.8; O2SAT 98
--- NOTE | 2020-04-10 17:40 | W.ED.GENAD ---
Discharge Plan Disposition Patient Disposition: HOME Condition: Improving Discharge Details Clinical Impression: UTI (urinary tract infection) Primary Care Provider: Rosaura Fragoso ED Provider: Lb Crouch Home Meds and New Rx's Prescriptions: Continued insulin aspart U-100 [Novolog Flexpen U-100 Insulin] 100 unit/mL (3 mL) insulin pen See Rx Instructions subcut AC RF: 0 mirtazapine 15 mg tablet 15 mg PO QHS RF: 0 sevelamer carbonate [Renvela] 800 mg tablet 800 mg PO TID RF: 0 Vraylar 1.5 mg capsule 1.5 mg PO Q OTHER DAY RF: 0 acetylcysteine [NAC] 600 mg capsule 600 mg PO BID RF: 0 (DME) Blood Glucose Test strip See Dose Instructions .ROUTE .MEDSUPPLY Qty: 300 RF: 3 (DME) Adult Briefs - Large misc See Dose Instructions .ROUTE .MEDSUPPLY Qty: 150 RF: 12 amlodipine 10 mg tablet 10 mg PO DAILY Qty: 90 RF: 3 lamotrigine 100 mg tablet 100 mg PO BID RF: 0 lorazepam 1 mg tablet 1 mg PO HS RF: 0 benztropine 0.5 mg tablet 0.5 mg PO HS RF: 0 acetaminophen [Acetaminophen Extra Strength] 500 mg tablet 1,000 mg PO TID PRN (Reason: fever or pain) Qty: 180 RF: 1 alpha lipoic acid 300 mg capsule 300 mg PO DAILY Qty: 90 RF: 3 multivitamin [Daily Multi-Vitamin] Tablet 1 tab PO DAILY Qty: 90 RF: 3 Eliquis 5 mg tablet 2.5 mg PO BID Qty: 180 RF: 3 aspirin [Adult Aspirin Regimen] 81 mg tablet,delayed release (DR/EC) 81 mg PO DAILY Qty: 90 RF: 3 cyanocobalamin (vitamin B-12) [Vitamin B-12] 500 mcg tablet 500 mcg PO DAILY RF: 0 torsemide 20 mg tablet 40 mg PO DAILY RF: 0 (DME) pen needle, diabetic 31 gauge x 1/3 needle 1 ea Miscellaneous QID Qty: 100 RF: 3 nystatin 100,000 unit/gram powder 1 applic topical BID Qty: 60 RF: 1 atorvastatin 40 mg tablet 40 mg PO DAILY Qty: 90 RF: 3 Basaglar KwikPen U-100 Insulin 100 unit/mL (3 mL) insulin pen 35 unit subcut DAILY RF: 0 cephalexin 500 mg capsule 500 mg PO BID 10 Days Qty: 20 RF: 0 Discharge Instructions Instructions: Urinary Tract Infection in Women (ED) Additional Instructions: Continue small, frequent sips of fluids so that you maintain hydration. May use the previously prescribed Zofran/ondansetron as needed every 6 hours for nausea. Continue the Keflex as prescribed twice daily, next dose tomorrow morning. Medical Decision Making 59-year-old female presents from home. She was seen by myself yesterday for left flank pain and found to have an a sending urinary tract infection for which she was placed on Keflex. She states she has had some intermittent episodes of vomiting at home since being discharged. She had not initially utilized for Zofran but did try it to 1 time at home today. She has not had a fever, states her flank pain is improving. She arrives to the ER afebrile with a pulse of 89, blood pressure 209/86 with some dry heaves. She is a diabetic. Differential diagnosis includes hypoglycemia, dehydration, electrolyte abnormalities. She does not appear septic. Urine culture from yesterday is growing Enterococcus. IV access established, labs obtained. Patient given antiemetic, 250 cc fluid bolus (she has a 1 L free water limit per day) and is given 500 mg of IV cefazolin. Labs note sodium 135, potassium 3.0, chloride 96, bicarb 33, BUN has risen to 30, creatinine 3.8. Patient improving with 250 cc of fluid, antiemetics. She is able to trial p.o. She is stable and improving. She will resume oral antibiotics tomorrow. Will discharge with Zofran to be used as needed. She will continue with her previously scheduled dialysis schedule. HPI General Mode of arrival: ambulatory. Date/Time Provider Initiated Documentation: 04/10/20 17:27. Limitations to Documentation: no limitations. Information obtained by: patient. History of Present Illness 59 year old F presents to the emergency department with the chief complaint of Nausea and vomiting, described as moderate, and is localized to the abdomen. Patient reports no radiation. Patient started experiencing this hour(s) and it has been intermittent. No relieving factors improve symptom(s), Eating worsens symptoms . Patient notes other (Left flank is feeling better); denies fever/chills. Patient did receive the following treatments prior to arrival, other Related Data Home Medications Medication Instructions Recorded Confirmed blood sugar diagnostic #300 each 05/06/18 04/09/20 lamotrigine 100 mg tablet 100 mg PO BID tab 05/09/18 04/10/20 lorazepam 1 mg tablet 1 mg PO HS 05/09/18 04/10/20 diaper,brief,adult,disposable #150 each 07/25/18 04/09/20 benztropine 0.5 mg tablet 0.5 mg PO HS tab 03/06/19 04/10/20 acetaminophen 500 mg tablet 1,000 mg PO TID PRN #180 tab 05/15/19 04/10/20 alpha lipoic acid 300 mg capsule 300 mg PO DAILY #90 cap 05/15/19 04/09/20 multivitamin 1 tab PO DAILY #90 tab 05/15/19 04/09/20 insulin aspart U-100 100 unit/mL See Rx Instructions SUBCUT AC ml 05/28/19 04/09/20 (3 mL) subcutaneous pen apixaban 5 mg tablet 2.5 mg PO BID #180 tab 07/14/19 04/10/20 aspirin 81 mg tablet,delayed 81 mg PO DAILY #90 tab 07/14/19 04/10/20 release cyanocobalamin (vitamin B-12) 500 500 mcg PO DAILY 08/05/19 04/09/20 mcg tablet torsemide 20 mg tablet 40 mg PO DAILY tab 08/08/19 04/10/20 pen needle, diabetic 31 gauge x #100 each 01/05/20 04/09/20 1/3 nystatin 100,000 unit/gram topical 1 applic TOPICAL BID #60 g 02/04/20 04/10/20 powder acetylcysteine 600 mg capsule 600 mg PO BID 02/11/20 04/10/20 cariprazine 1.5 mg capsule 1.5 mg PO Q OTHER DAY 02/11/20 04/10/20 mirtazapine 15 mg tablet 15 mg PO QHS 02/11/20 04/10/20 sevelamer carbonate 800 mg tablet 800 mg PO TID 02/11/20 04/10/20 amlodipine 10 mg tablet 10 mg PO DAILY #90 tab 03/29/20 04/10/20 atorvastatin 40 mg tablet 40 mg PO DAILY #90 tab 04/08/20 04/10/20 Basaglar KwikPen U-100 Insulin 35 unit SUBCUT DAILY 04/09/20 04/09/20 cephalexin 500 mg PO BID 10 Days #20 cap 04/09/20 04/10/20 Previous Rx's Medication Instructions Recorded blood sugar diagnostic #300 each 05/06/18 diaper,brief,adult,disposable #150 each 07/25/18 acetaminophen 500 mg tablet 1,000 mg PO TID PRN #180 tab 05/15/19 alpha lipoic acid 300 mg capsule 300 mg PO DAILY #90 cap 05/15/19 multivitamin 1 tab PO DAILY #90 tab 05/15/19 apixaban 5 mg tablet 2.5 mg PO BID #180 tab 07/14/19 aspirin 81 mg tablet,delayed 81 mg PO DAILY #90 tab 07/14/19 release pen needle, diabetic 31 gauge x #100 each 01/05/2004/25 nystatin 100,000 unit/gram topical 1 applic TOPICAL BID #60 g 02/04/20 powder amlodipine 10 mg tablet 10 mg PO DAILY #90 tab 03/29/20 atorvastatin 40 mg tablet 40 mg PO DAILY #90 tab 04/08/20 cephalexin 500 mg PO BID 10 Days #20 cap 04/09/20 Allergies Allergy/AdvReac Type Severity Reaction Status Date / Time aripiprazole [From Abilify] Allergy Severe Verified 04/09/20 16:04 duloxetine HCl Allergy Severe Hives Verified 04/09/20 16:04 [From Cymbalta] oxycodone Allergy Severe Hives Verified 04/09/20 16:04 Sulfa (Sulfonamide Allergy Severe Skin Rash Verified 04/09/20 16:04 Antibiotics) amitriptyline Allergy Intermediate Verified 04/09/20 16:04 citalopram Allergy Intermediate HIVES Verified 04/09/20 16:04 fesoterodine Allergy Intermediate HIVES Verified 04/09/20 16:04 latex Allergy Intermediate Hives Verified 04/09/20 16:04 rabies vaccine, human Allergy Intermediate Verified 04/09/20 16:04 diploid cell [Rabies Vaccine,Human Diploid] Tetanus Vaccines and Toxoid Allergy Intermediate Swelling/Ed Verified 04/09/20 16:04 [Tetanus Vaccines & Toxoid] ghulam acetaminophen [From Vicodin] Allergy Unknown Verified 04/09/20 16:04 bupropion HCl Allergy Unknown Verified 04/09/20 16:04 [From Wellbutrin] celecoxib [From Celebrex] Allergy Unknown Verified 04/09/20 16:04 diazepam [From Valium] Allergy Unknown Verified 04/09/20 16:04 divalproex sodium Allergy Unknown Verified 04/09/20 16:04 [From Depakote] escitalopram oxalate Allergy Unknown Verified 04/09/20 16:04 [From Lexapro] fluoxetine HCl [From Prozac] Allergy Unknown Verified 04/09/20 16:04 fosphenytoin sodium Allergy Unknown Verified 04/09/20 16:04 [From Cerebyx] hydrocodone bitartrate Allergy Unknown Verified 04/09/20 16:04 [From Vicodin] morphine Allergy Unknown Verified 04/09/20 16:04 nicotine [From Nicoderm CQ] Allergy Unknown rash/hives Verified 04/09/20 16:04 paroxetine HCl [From Paxil] Allergy Unknown Verified 04/09/20 16:04 phenytoin sodium Allergy Unknown Verified 04/09/20 16:04 [From Dilantin] phenytoin sodium extended Allergy Unknown Verified 04/09/20 16:04 [From Dilantin] prednisone Allergy Unknown Verified 04/09/20 16:04 procaine HCl [From Novocain] Allergy Unknown Verified 04/09/20 16:04 quetiapine fumarate Allergy Unknown Verified 04/09/20 16:04 [From Seroquel] risperidone [From Risperdal] Allergy Unknown Verified 04/09/20 16:04 sertraline Allergy Unknown Hives Verified 04/09/20 16:04 trazodone Allergy Unknown Verified 04/09/20 16:04 venlafaxine HCl Allergy Unknown Verified 04/09/20 16:04 [From Effexor] thiothixene [Thiothixene] AdvReac Severe Nausea Verified 04/09/20 16:04 topiramate AdvReac Intermediate Nausea Verified 04/09/20 16:04 gabapentin AdvReac Unknown Severe Verified 04/09/20 16:04 dizziness, runs; vomiting lidocaine AdvReac Unknown Nausea Verified 04/09/20 16:04 ibuprofen AdvReac headache Verified 04/09/20 16:04 and nausea melatonin AdvReac nightmares Verified 04/09/20 16:04 varenicline tartrate AdvReac Psychosis Verified 04/09/20 16:04 [From Chantix] ABSOLUTE CONTRAINDICATION AdvReac Severe Headache Uncoded 04/09/20 16:04 FOR MRI (disconnected RV pacer lead) general anesthia AdvReac Unknown Uncoded 04/09/20 16:04 General Stated Complaint: Nausea/Vomit/Diar ASIM: 3 Review of Systems Narrative: No fever. States her flank pain is improved. No significant abdominal pain. Feels slightly weakened. 8 systems reviewed and otherwise negative [facility] Medical History Adult BMI > 30 (06/07/15) Bipolar 1 disorder Cellulitis of toe of left foot (05/17/17) Colon cancer screening declined Colonoscopy refused Congenital single kidney (03/08/15) by xray from [facility] 03/17/09 in scanned records Critical lower limb ischemia aorotbifemoral bypass on 08/29/27. Discoloration and thickening of nails both feet Dyskinesia, tardive (02/11/15) due to Abilify, did not resolve Hemodialysis patient Mammogram declined Memory deficit Mental health disorder (10/08/15) Meralgia paresthetica, right lower limb (11/05/15) Dr. 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 Generator change 12/2013 [facility] [place] (Yariel MCL[facility]HLIN). Pocket revision & new RV lead 10/2014 [facility] [place] [place]. Sinus node dysfunction (10/22/14) Solitary left kidney Stroke R parietal; asymptomatic; Type 2 diabetes mellitus Vitreous hemorrhage, right eye (07/24/17) [facility], Dr Kavita Palacios unknown duration and etiology Surgical History aortobifemoral bypass (09/07/17) [facility] [place] vascular. August 2017 section (~1985) Pacemaker (~2004) [facility]ian S/P angioplasty (01/30/18) left femoral endarterectomy and patch angioplasty, Aortogram, Over the wire Left ABF graft thrombectomy, Open ledt ABF thrombectomy, left ABF graft stent (VBX 8x39) S/P aortobifemoral bypass surgery Family History Mother No problems noted. Father No problems noted. Sister No problems noted. Social History Smoking/Tobacco Use Status: Current every day Tobacco Type: cigarettes Smoking risk assessment performed?: Yes Alcohol Intake: never Drug use: Never Substance use type: does not use Adopted: No Number of Children: 1 Do you need help understanding health information?: Always current occupation: disabliilty What type of physical activity do you participate in: walking Duration: 15-30 minutes/day Frequency: 3-4 times per week Do you feel safe at home: Yes Do you feel safe in your relationship?: Yes Exam Narrative Exam Narrative: GEN: awake, alert, oriented 3. Pleasant, well groomed, interactive. HEAD: Normocephalic, atraumatic ENT: Mucous membranes dry, oropharynx unremarkable, External ear exam unremarkable EYES: PERRL, EOMI NECK: Full ROM, no MINAL, no menigismus CHEST/RESP: Nontender, clear to auscultation bilateral, no wheeze/rhonchi/rales CARDIOVASCULAR: RRR, no murmur, rub yoli. 2+ Rad pulse bilateral ABDOMEN: Soft, nontender, no mass. +Bowel sounds EXT: Full ROM, no edema, no rash Neuro: Grossly normal neurologic exam, conversant, interactive. Psych: Speech fluent, thoughts congruent, affect normal Course Vital Signs Vital signs: Vital Signs Temperature 36.8 C 04/10/20 17:31 Pulse 89 04/10/20 17:31 Respiratory Rate 16 04/10/20 17:31 Blood Pressure 209/86 H 04/10/20 17:31 Pulse Oximetry 98 04/10/20 17:31 Temperature 36.8 C 04/10/20 17:31 Temperature Source Skin 04/10/20 17:31 Pulse 89 04/10/20 17:31 Respiratory Rate 16 04/10/20 17:31 Respiratory Effort 04/10/20 17:36 Blood Pressure 209/86 H 04/10/20 17:31 Blood Pressure Position Supine 04/10/20 17:31 Pulse Oximetry 98 04/10/20 17:31 Pain Level 9 04/10/20 17:31
[2020-04-10 18:09] LABS: Abs Immature Grans 0.04 10^3/uL (0.0-0.06); Absolute Basophil Count 0.01 10^3/uL (0.0-0.2); Absolute Lymphocyte Count 0.87 10^3/uL (1.2-3.4); Absolute Monocyte Count 0.27 10^3/uL (0.1-0.8); Absolute Neutrophil Count 8.72 10^3/uL (1.2-6.7); Basophils % 0.1; HCT 35.5 % (36.0-46.0); HGB 12.1 g/dL (11.2-15.7); Immature Grans % 0.4; Lymphocytes % 8.8; MCH 31.5 pg (27.0-33.0); MCHC 34.1 % (32.0-36.0); MCV 92.4 fL (80-95); MPV 9.2 fL (8.0-11.0); Monocytes % 2.7; Nucleated RBC 0 %; Platelet Count 251 10^3/uL (130-400); RBC 3.84 10^6/uL (3.93-5.22); RDW 13.2 % (11.7-14.6); RDW-SD 44.4 fL; WBC 9.91 10^3/uL (4.4-10.8)
[2020-04-10] MEDS: Normal Saline 250 ML IV (18:10)
[2020-04-10] MEDS: Ondansetron 4 MG/2 ML VIAL IVP (18:10)
[2020-04-10] MEDS: LORazepam 2 MG/ML VIAL 0.5 MG IVP ×2 (18:10→18:55)
[2020-04-10 18:35] LABS: ALT 24 U/L (14-59); AST 30 U/L (15-37); Albumin 2.4 g/dL (3.4-5.0); Alkaline Phosphatase 106 U/L (46-116); Anion Gap 5.9 mmol/L (3-11); BUN 30 mg/dL (7-18); Bilirubin, Total 0.6 mg/dL (0.2-1.0); CO2 33.1 mmol/L (21.0-32.0); Calcium 8.9 mg/dL (8.5-10.1); Chloride 96 mmol/L (98-107); Estimated GFR 11.98 (mL/min/1.73m2); Glucose 96 mg/dL (74-106); Sodium 135 mmol/L (136-145); Total Protein 5.9 g/dL (6.4-8.2)
[2020-04-10 18:38] LABS: CREATININE 3.86 mg/dL (0.55-1.02)
[2020-04-10] MEDS: ceFAZolin 500 MG in Normal Saline 50 ML 100 MG IVPB (18:56)
[2020-04-10] MEDS: Normal Saline Flush 10 ML SYR IVP (18:56)
--- NOTE | 2020-04-10 19:00 | NUR.NOTE ---
No vomiting since arrival. Pt continues to c/o nausea. intermittently coughing and states I'm throwing up. med with ativan a/o. Sats dipped to 85% while sleeping after med. MD Crouch aware. placed on 2L O2 NC
--- NOTE | 2020-04-10 19:11 | NUR.NOTE ---
Spoke with Katerin with pt permission. updated on pt condition, aware hope to DC in 1-2 hours.
--- NOTE | 2020-04-10 20:21 | NUR.NOTE ---
Sada PO;s, states feeling much better. Katerin called for ride home, yrn be here approx 2100
[2020-04-10 20:22] VITALS: BP 177/74; PULSE 86; RESP 16; TEMP 37.1; O2SAT 96
== END 2020-04-10 20:00 | disposition home or self-care (01) ==
PROVIDERS: Emergency Provider Emergency Medicine; PCP Nurse Practitioner
DX: N39.0 Urinary tract infection, site not specified (principal); B95.2 Enterococcus as the cause of diseases classified elsewhere; E11.9 Type 2 diabetes mellitus without complications; Z79.4 Long term (current) use of insulin
CPT/HCPCS: 36415; 80053; 96361; 96365; 96375; 96376; 99285; 85025; 99284; J0690; J2060; J2405

== ENCOUNTER → 2020-07-06 12:52 | Outpatient (BNVA) | payer MEDICARE, MEDICAID, SELFPAY | PROVIDERS: PCP Nurse Practitioner; Referring Provider Nurse Practitioner; Visit Provider Internal Medicine Cardiovascular Disease | DX: I73.9 Peripheral vascular disease, unspecified (principal); I12.0 Hypertensive chronic kidney disease with stage 5 chronic kidney disease or end stage renal disease; E11.22 Type 2 diabetes mellitus with diabetic chronic kidney disease; N18.6 End stage renal disease; Z99.2 Dependence on renal dialysis; F17.210 Nicotine dependence, cigarettes, uncomplicated | CPT/HCPCS: 99203; 99214 ==

== ENCOUNTER → 2020-08-11 09:34 | Outpatient (BNVA) | payer MEDICARE, MEDICAID, SELFPAY | PROVIDERS: PCP Nurse Practitioner; Referring Provider Nurse Practitioner; Visit Provider Physician Assistant | DX: R00.1 Bradycardia, unspecified (principal); Z45.018 Encounter for adjustment and management of other part of cardiac pacemaker | CPT/HCPCS: 93279; 99212 ==

== ENCOUNTER 2020-10-05 10:51 | Day surgery (SDC) | payer MEDICARE, MEDICAID, SELFPAY ==
[2020-10-05 11:48] VITALS: BP 168/82; PULSE 80; RESP 16; TEMP 36.6; O2SAT 95
[2020-10-05] MEDS: Bupivacaine 0.5% Pres-Free 30 ML VIAL (15:00)
--- NOTE | 2020-10-05 15:13 | W.PM.DSUDISC ---
Discharge Plan Disposition Patient Disposition: HOME Condition: Fair Discharge Details Reason For Visit: catheter Attending Provider: Samra Nieto Primary Care Provider: Rosaura Fragoso Home Meds and New Rx's Prescriptions: No Action insulin aspart U-100 [Novolog Flexpen U-100 Insulin] 100 unit/mL (3 mL) insulin pen See Rx Instructions subcut AC RF: 0 mirtazapine 15 mg tablet 15 mg PO QHS RF: 0 sevelamer carbonate [Renvela] 800 mg tablet 800 mg PO TID RF: 0 Vraylar 1.5 mg capsule 1.5 mg PO Q OTHER DAY RF: 0 acetylcysteine [NAC] 600 mg capsule 600 mg PO BID RF: 0 acetaminophen [Acetaminophen Extra Strength] 500 mg tablet 1,000 mg PO BID PRN (Reason: fever or pain) RF: 0 (DME) Blood Glucose Test strip See Dose Instructions .ROUTE .MEDSUPPLY Qty: 300 RF: 3 (DME) Adult Briefs - Large misc See Dose Instructions .ROUTE .MEDSUPPLY Qty: 150 RF: 12 amlodipine 10 mg tablet 10 mg PO DAILY Qty: 90 RF: 3 lamotrigine 100 mg tablet 100 mg PO BID RF: 0 lorazepam 1 mg tablet 1 mg PO HS RF: 0 benztropine 0.5 mg tablet 0.5 mg PO HS RF: 0 multivitamin [Daily Multi-Vitamin] Tablet 1 tab PO DAILY Qty: 90 RF: 3 Eliquis 5 mg tablet 2.5 mg PO BID Qty: 180 RF: 3 cyanocobalamin (vitamin B-12) [Vitamin B-12] 500 mcg tablet 500 mcg PO DAILY RF: 0 torsemide 20 mg tablet 40 mg PO DAILY RF: 0 nystatin 100,000 unit/gram powder 1 applic topical BID Qty: 60 RF: 1 atorvastatin 40 mg tablet 40 mg PO DAILY Qty: 90 RF: 3 (DME) pen needle, diabetic 31 gauge x 1/3 needle 1 ea Miscellaneous QID Qty: 100 RF: 3 aspirin [Adult Aspirin Regimen] 81 mg tablet,delayed release (DR/EC) 81 mg PO DAILY Qty: 90 RF: 3 amlodipine [Norvasc] 10 mg tablet 10 mg PO DAILY RF: 0 fosinopril 10 mg tablet 10 mg PO DAILY RF: 0 acetylcysteine [NAC] 600 mg capsule 600 mg PO .COMPLEX RF: 0 Discharge Instructions Additional Instructions: -wash w/ soap and water -ice. 20 mins on and 20 off. - tylenol for pain -no lifting over 20#'s for (3) days -resume elliquis on -remove tape and gauze in am. Steri- tapes will fall off on there own. There are no sutures to remove. -continue dialysis as scheduled. Activity:: see above Remove Dressings/Wound Care:: 24 hours Shower/Bathe:: 24 hours Diet:: Low Sodium DS: Diagnosis Discharge Diagnosis (1) End stage renal disease: Status: Acute
[2020-10-05 15:15] VITALS: BP 173/85; PULSE 77; RESP 17; TEMP 36.3; O2SAT 94
--- NOTE | 2020-10-05 15:25 | W.PM.OP ---
Date of service: 10/05/20 Time of Service: 15:25 Operative Note Operative Note DATE OF PROCEDURE: 10/05/20 PRE-OP DIAGNOSIS: HD POST-OP DIAGNOSIS: same PROCEDURE: removal split merrick catheter R IJ SURGEON: Samra Nieto ANESTHESIA TYPE: Local By Surgeon Refer to Anesthesia Record ESTIMATED BLOOD LOSS: 1 COMPLICATIONS: None Patient was transported to: same day Patient's condition: stable Procedure Description: Zuleyka had a previous right IJ split Merrick catheter placed for urgent access for hemodialysis. She has subsequently undergone fistula creation. She has a fistula in her right upper forearm and has a good thrill/bruit today. They have been using this for hemodialysis. she is here today for the IJ catheter removal. She is off her anticoagulants. The catheter has been in for 7 months. She is not had no infections. Informed consent is obtained explaining risks and benefits of the procedure including but not limited to: Bleeding, infection, damage to the vein, need for possible surgery reaction to the anesthetics, scarring, and other unforetold complications. I did review her case with anesthesia. She has had Marcaine in the past and has not had any problems with this anesthetic. Her allergy to lidocaine is listed as nausea. The patient is marked in preop. She is brought to the procedure room. She is prepped and draped in the usual sterile fashion using a ChloraPrep scrub solution. Timeout is performed. She does not require antibiotics. The area is anesthetized with 30 cc of quarter percent Marcaine plain. There are no stitches to remove. The catheter and the cuff is Dissected out. The catheter is easily removed. Pressure is held for 2 minutes. The insertion site is closed with a single subcutaneous stitch of 4-0 Monocryl. Steri tapes and sterile dressings are applied. Patient had no bleeding. She tolerated the procedure well without complication. She is returned to same-day surgery. Her caregivers are given explicit instructions in wound care, activity, warning signs, (bleeding),. She can follow-up with her usual routine of HD. She can resume the Eliquis in 48 hours time. This document was created using voice activated software and may contain errors
[2020-10-05 15:45] VITALS: BP 179/81; PULSE 78; RESP 15; TEMP 36.5; O2SAT 93
== END 2020-10-05 16:20 | disposition home or self-care (01) ==
PROVIDERS: PCP Nurse Practitioner; Visit Provider Surgery
PROC: (CPT 36590; principal; 2020-10-05 14:15)
DX: N18.6 End stage renal disease (principal); Z49.01 Encounter for fitting and adjustment of extracorporeal dialysis catheter
CPT/HCPCS: 36590

== ENCOUNTER 2020-11-24 13:09 | Outpatient (REF) | payer MEDICARE, MEDICAID, SELFPAY ==
[2020-11-24 16:05] LABS: C Diff PCR Positive (Negative)
[2020-11-25 11:33] LABS: Campylobacter PCR Negative (Negative); Salmonella PCR Negative (Negative); Shiga Toxin PCR Negative (Negative); Shigella/Enteroinvasive Ecoli Negative (Negative)
[2020-11-25 12:42] LABS: Helicobacter pylori Ag, Feces Negative (Negative)
== END 2020-11-24 13:10 | disposition home or self-care (01) ==
LOC: LBN 13:09
PROVIDERS: PCP Nurse Practitioner; Visit Provider Nurse Practitioner
DX: R19.7 Diarrhea, unspecified (principal)
CPT/HCPCS: 87338; 87493; 87505

== ENCOUNTER 2021-03-03 02:21 | Outpatient (CLI) | payer MEDICARE, MEDICAID, SELFPAY ==
[2021-03-03 10:36] LABS: Calculated LDL 88 mg/dL (<100); Cholesterol 166 mg/dL (<200); HDL Cholesterol 64 mg/dL (40-60); Triglyceride 74 mg/dL (<150)
== END 2021-03-03 02:22 | disposition home or self-care (01) ==
LOC: LBO 02:21
PROVIDERS: PCP Nurse Practitioner; Visit Provider Nurse Practitioner
DX: E78.00 Pure hypercholesterolemia, unspecified (principal)
CPT/HCPCS: 36415; 80061

== ENCOUNTER → 2021-04-06 10:31 | Outpatient (BNVA) | payer MEDICARE, MEDICAID, SELFPAY | PROVIDERS: PCP Nurse Practitioner; Referring Provider Nurse Practitioner; Visit Provider Physician Assistant | DX: R00.1 Bradycardia, unspecified (principal); Z99.2 Dependence on renal dialysis; Z45.018 Encounter for adjustment and management of other part of cardiac pacemaker | CPT/HCPCS: 93279; 99212 ==

== ENCOUNTER 2021-05-03 07:43 | Emergency (ER) | payer MEDICARE, MEDICAID, SELFPAY ==
--- OUTSIDE RECORDS SUMMARY | 2021-05-03 07:49 | XMS_ITS | Encounter Summary ---
:1960 Author Care Team Providers Name Role Phone Dr. Rosaura Fragoso Primary Care Provider [phone] Dr. Rosaura Fragoso Referring Provider [phone] Reason for Visit Foot Care Assessment and Plan 1. Ingrowing toenail 2. Onychomycosis of toenails 3. Pain of toe of left foot 4. Pain of toe of right foot 5. Bilateral atherosclerosis of arteries of lower limbs 6. 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 Eczema Plan: No specific recommendati ons were given for skin care other than observational care. If these discolor ai ded capillary type lesions increased to the legs I recommended she return for follow -up visit and I may consider skin biopsy. Discussion Note: None recorded.Patient educational handouts: No information available. Plan of Care Reminders Provider Appointments Foot Care 05/31/2021 Rd Uriarte, 11:00AM DPM Lab None ? ? recorded. Referral None ? ? recorded. Procedures None ? ? recorded. Surgeries None ? ? recorded. Imaging None ? ? recorded. Medications Name Start Date ? ? acetaminophen 500 mg tablet ? Take 2 tablets 3 times a day by oral route as needed. alpha lipoic acid 300 mg capsule ? Take 1 capsule every day by oral route. Amino Acid ? 2 tabs in the am 1 tab in the pm amoxicillin 500 mg tablet ? Take 1 tablet twice a day by oral route. apixaban 5 mg tablet ? Take 1 tablet twice a day by oral route. atorvastatin 40 mg tablet ? Take 1 tablet every day by oral route. benztropine 0.5 mg tablet ? Take 1 tablet every day by oral route at bedtime. cariprazine 1.5 mg capsule ? Take 1 capsule every day by oral route. cefadroxil 1 gram tablet ? Take 1 tablet twice a day by oral route. ciclopirox 8 % topical solution ? APPLY TO THE AFFECTED AREA(S) BY TOPICA L ROUTE ONCE DAILY PREFERABLY AT BEDTIME OR 8 HOURS BEFORE WASHING colchicine 0.6 mg tablet ? TAKE 2 TABLETs then 1 tablet in 1 hour later Drisdol 1,250 mcg (50,000 unit) capsule ? Take 1 capsule every month by oral route. gabapentin 300 mg capsule ? Take 1 capsule twice a day by oral route. Glucerna ? 237 mL daily [facility] Naproxen Sodium 220 mg tablet ? Take 2 tablets every 12 hours by oral route as needed . insulin aspart (niacinamide)(U-100) 100 unit/mL(3 mL) subcutaneous pen ? Inject 10 units every day by subcutaneous route. lamotrigine 100 mg tablet ? Take 1 tablet twice a day by oral route. Lantus Solostar U-100 Insulin 100 unit/mL (3 mL) subcu taneous pen ? Inject 35 units every day by subcutaneous route. levomefolate calcium 15 mg tablet ? Take 1 tablet every day by oral route. lorazepam 1 mg tablet ? Take 1 tablet every day by oral route at bedtime. melatonin 3 mg tablet ? Take 1 tablet every day by oral route at bedtime. mirtazapine 15 mg tablet ? Take 1 tablet every day by oral route. multivitamin ? mupirocin 2 % topical ointment ? APPLY A SMALL AMOUNT TO THE AFFECTED AREA BY TOPICAL ROUTE 3 TIMES PER DAY nicotine (polacrilex) 4 mg gum ? Chew 1 piece of gum every 2 hours by oral route as ne eded. Novolog U-100 Insulin aspart 100 unit/mL subcutaneous solution ? per BG treat to target plan Medications Administered None recorded. Vitals Height 5 ft 8 in Results Lab Results None recorded. Allergies Code Code System Name Reaction Severity Onset 161 RxNorm Acetaminophen ? ? ? 704 RxNorm Amitriptyline ? ? ? Anesthetics - Amide ? ? ? Type - Select Amino Amides Anesthetics - Ofelia ? ? ? Type- Parabens 27661 RxNorm Aripiprazole ? ? ? 08727 RxNorm Bupropion ? ? ? 861379 RxNorm Celebrex ? ? ? 464349 RxNorm Celecoxib ? ? ? 360806 RxNorm Celexa ? ? ? 983304 RxNorm Cerebyx ? ? ? 027785 RxNorm Chantix ? ? ? 2556 RxNorm Citalopram ? ? ? 654950 RxNorm Cymbalta ? ? ? 3322 RxNorm Diazepam ? ? ? 521896 RxNorm Dilantin ? ? ? Divalproex Sodium ? ? ? Effexor ? ? ? 258656 RxNorm Fesoterodine ? ? ? 11145 RxNorm Gabapentin ? ? ? 5640 RxNorm Ibuprofen ? ? ? 8039029 RxNorm Latex ? ? ? 115473 RxNorm Lexapro ? ? ? 6387 RxNorm Lidocaine ? ? ? 790415 RxNorm Nicoderm Cq ? ? ? 7407 RxNorm Nicotine ? ? ? 141923 RxNorm Paxil ? ? ? 8640 RxNorm Prednisone ? ? ? 8701 RxNorm Procaine ? ? ? 94318 RxNorm Prozac ? ? ? 342993 RxNorm Risperdal ? ? ? 20706 RxNorm Seroquel ? ? ? 38157 RxNorm Sertraline ? ? ? Sulfa (Sulfonamide ? ? ? Antibiotics) Tetanus and ? ? ? Diphtheria Toxoids 58829 RxNorm Thiothixene ? ? ? 60714 RxNorm Topiramate ? ? ? 45918 RxNorm Trazodone ? ? ? 978199 RxNorm Valium ? ? ? 696822 RxNorm Vicodin ? ? ? Wellbutrin ? ? ? 25384 RxNorm Zoloft ? ? ? Notes: rabbies vaccine MRI due to pacer leads Problems Name Status Onset Date Source ? Type 2 Diabetes Mellitus Active 04/03/2017 ? Paranoid Disorder Active 04/03/2017 ? Neuropathy Due to Diabetes Mellitus Active 04/03/2017 ? Sinus Node Dysfunction Active 04/03/2017 ? Poor Peripheral Circulation Active 04/03/2017 ? Vascular Insufficiency Active 04/03/2017 ? Dyskinesia Active 04/03/2017 ? Peripheral Edema Active 04/03/2017 ? Mental Health Impairment Active 04/03/2017 ? Infection of Toenail Active 04/03/2017 ? Pain in Both Feet Active 04/03/2017 ? Meralgia Paresthetica of Right Leg Active 04/03/2017 ? Obesity Active 05/05/2019 ? Bipolar Disorder Active 05/05/2019 ? Mental Disorder Active 05/05/2019 ? Posttraumatic Stress Disorder Active 05/05/2019 ? Peripheral Vertigo Active 05/05/2019 ? Sinus Tachycardia Active 05/05/2019 ? Cerebrovascular Accident Active 05/05/2019 ? Lower Limb Ischemia Active 05/05/2019 ? Cellulitis Active 05/05/2019 ? Cardiac Pacemaker in Situ Active 05/05/2019 ? Postmenopausal State Active 05/05/2019 ? Kidney Disease Active 05/19/2019 ? Onychomycosis of Toenails Active 06/24/2020 ? Diabetic Peripheral Neuropathy Active 06/24/2020 ? Ingrowing Toenail Active 06/24/2020 ? Bilateral Atherosclerosis of Arteries of Active 021 ? Lower Limbs Pain of Toe of Left Foot Active 06/24/2020 ? Pain of Toe of Right Foot Active 06/24/2020 ? Procedures Date Name Performed by ? ? Pacemaker Information not avai lable ? Caesarean Section Information not avai lable ? Cardiac Surgery Information not avai lable Vaccine List None recorded. Social History Tobacco Smoking Status Light Tobacco Smoker (1/4 pack per da y) Do you or have you ever used smokeless Never used smokeless tobacco tobacco? Have you been to an area known to be N high risk for COVID-19? What was the date of your most recent 03/01/2021 tobacco screening? Do you or have you ever used Never used electronic cigarette s e-cigarettes or vape? In the 14 days before symptom onset, N did the patient spend time in [facility]? If patient spent time in [facility], [facility] - Does the patient live in [facility]? Functional Status Unknown. Past Encounters 03/01/2021 Ingrowing Toenail; Onychomycosis of Toen ails; Pain of Toe of Left Foot; Pain of Toe of Right Foot; Bilateral Atherosclerosis of Arteries of Lower Limbs; Neuropathy Due to Diabetes Mellitus; Eczema Rd Uriarte, DPM: [address] [place] [address], Ph. History of Present Illness Note: Vianca is a 60-year-old handicapped female who is a diabetic patient with renal failure. She iscurrently receiving dialysis through the dialysis center in [facility]. Review of Systems ? Podiatry ROS Reported By: Patient Constitutional: Constitutional: no fever, no night sweats, no significant weight loss, fatigue Integumentary: Skin: no abnormal mole, no j aundice, no rash, No laceration Musculoskeletal: Musculoskeletal: arthralgias /joint pain, swelling in the extremities, joint swelling, Gait Abnormality Neurologic: Neurologic: no numbness, no tremor, no shooting pain, no paresthesia's, no tIngling Hematologic/Lymphatic: Hematologic/Lymphatic no swo llen glands, no bruising, no excessive bleeding, no exces sive bleeding Allergic/Immunologic: Allergy/Immunologic: no seas onal allergies Physical Exam ? Notes: <div>Constitutional: well de veloped, appears stated age, well nourished, no acute distress, alert and or iented to time, place and person, weight-overweight

Vas cular:
Dorsalis pedis pulse-0/4 bilaterally
Posterior tib ial pulse-0/4 bilaterally
Venous filling time at the digit levels-1 second
Digital hair-absent
Skin texture and turgor-normal
Pedal tempe rature-warm
Extremity varicosities-none noted
Edema-+1 pitting ed ghulam lower legs, ankles and feet
Ischemia-none noted
Cyanosis-no cyanosi s of digits noted
Claudication: denies intermittent or nocturnal cl audication in the extremities

Dermatologic: Examination is significant f or painful mycotic, dystrophic incurvated ingrown nails on the right and left foot x10. There is no evidence of drainage, bleeding, subungual hematoma or pyogenic granuloma present. There is no paronychial inflammation in the nail borders noted. No skin lesions, breaks in skin integrity or ulceration s are noted on the cutaneous surfaces of the lower legs, ankles or feet bilater ally. There is mild discoloration of the dorsal surface of the right and lef t foot that may be consistent with capillary type lesions however there is no evidence of cellulitic activity.

Neurologic: Alert and oriented times 3, concentrating ability not decreased, symmetrical b ulk, strength and tone in the lower extremities, coordination is normal.
S ensory examination-fully intact on the L4-S1 dermatome
Motor examinati on-intact however weakness is noted generally in the lower extremities
Foundry Manager rdination and tremors-no intentional or resting tremors are noted, no druze itious movement noted
Muscle fasciculations-no fasciculations noted in the lower extremity muscles
Atrophy-no atrophy noted in the intrinsic muscl es of the feet, lower legs or thighs

Musculoskeletal: Abl e to rise from a chair and get up onto the orthopaedic examination tabl e, no acute musculoskeletal problems noted in the lower legs, ankles or feet b ilaterally

Gait: Mild a propulsive type gait with mild loss of munir ce

</div><div>This clinic note/operative note was created using Int[employer] voice recognition software. The note was reviewed by myself for p rimary content. There may be multiple small syntactical discrepancies an d errors due to the voice recognition limitations of the software-Dr. Uriarte.< /div><div>
</div>
--- OUTSIDE RECORDS SUMMARY | 2021-05-03 07:49 | XMS_ITS ---
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 Active 71 7857790 use of insulin Problem Type 2 diabetes E11.8 Active 4220 64676 mellitus with unspecified complications Problem Type 2 diabetes E11.628 Active mellitus with other skin complications ALLERGIES Substance Reaction Event Type Date Status Celecoxib Unknown Drug Allergy Apr, Active Amitriptyline HCl Unknown Drug Allergy Apr, Active Gabapentin severe dizziness, Drug Allergy Apr, Active runs, vomiting absolute contraindication headache Non Drug Allergy Apr, 8 Active for MRI Sulfa Unknown Non Drug Allergy Apr, Active General Anesthia Unknown Non Drug Allergy Apr, Active Sertraline HCl hives Drug Allergy Apr, Active Novcaine hives Non Drug Allergy Apr, Active Citalopram Hydrobromide hives Drug Allergy Apr, Acti ve Divalproex Sodium Unknown Drug Allergy Apr, Active Lidocaine hives Drug Allergy Apr, Active Escitalopram Oxalate Unknown Drug Allergy Apr, Active varenicline Unknown Non Drug Allergy Apr, Active Acetaminophen-Codeine Unknown Drug Allergy Apr, Active DiazePAM Unknown Drug Allergy Apr, Active BuPROPion HCl Unknown Drug Allergy Apr, Active DULoxetine HCl Unknown Drug Allergy Apr, Active fosphenytoin Unknown Non Drug Allergy Apr, Active ARIPiprazole Unknown Drug Allergy Apr, Active venlafaxine Unknown Non Drug Allergy Apr, Active QUEtiapine Fumarate Unknown Drug Allergy Apr, Active Topiramate Unknown Drug Allergy Apr, Active fesoterodine hives Non Drug Allergy Apr, Active Nicoderm rash, hives Non Drug Allergy Apr, Active FLUoxetine HCl Unknown Drug Allergy Apr, Active Tetanus Vaccine and Toxoid Unknown Non Drug Allergy Apr, Active PredniSONE Unknown Drug Allergy Apr, Active RisperiDONE Unknown Drug Allergy Apr, Active PARoxetine HCl Unknown Drug Allergy Apr, Active Latex hives Non Drug Allergy Apr, Active TraZODone HCl Unknown Drug Allergy Apr, Active Rabbies Vaccine Unknown Non Drug Allergy Apr, Active Ibuprofen headache, nausea Drug Allergy Apr, Active Keflex stomach upset, Drug Allergy Apr, Active Diarrhea Phenytoin Sodium, Prompt Unknown Non Drug Allergy Apr, Active Thiothixene Unknown Drug Allergy Apr, Active ENCOUNTERS Encounter Location Date Diagnosis xxOFFICE NON CLINICAL [address] [facility] May, [place] [address] [facility] [address] [facility] Apr, [place] [address] [facility] [address] [facility] Apr, Cellulitis L0 3.90 ; [address] [place], [place]ony[place] a of toe of left [address] foot L03.032 ; T ype 2 diabetes mellitu s with other skin compl ications E11.628 ; Type 2 diabetes mellitus with hyperglycemia E1 1.65 ; Type 2 diabetes mellitus with diabetic ne uropathy, unspecified E11. 40 ; Type 2 diabetes melli tus with unspecified comp lications E11.8 and Long t erm current use of i nsulin Z79.4 [facility] [address] [facility] Apr, [place] [address] [facility] [address] Apr, [place] [address] IMMUNIZATIONS No Known Immunizations SOCIAL HISTORY Qualifiers Date Current Smoker REASON FOR REFERRAL FUNCTIONAL STATUS PLAN OF CARE Activity Details Follow Up 1 Week Reason: Future Test CBC WITH AUTO DIFF 20170523 Future Test COMPMET 97675627 Future Test CRP-INFLAM 20170523 Future Test HEMOGLOBIN A1C 96440514 Future Test SED RATE 48667108 Future Test X Foot L 3V [id number] VITAL SIGNS MEDICATIONS Medication Instructions Dosage Frequency Start End Duration Statu s Date Date LORazepam 0.5 mg orally 3 times a 1 tab(s) 8h Unknown day NovoLOG FlexPen 0 Active 100 units/mL Amoxicillin 500 orally every 8 1 tab(s) 8h Apr, day(s ) Active mg hours 2017 ACETAMINOPHEN 500 orally every 6 2 tab(s) 6h Active mg hours LANTUS SOLOSTAR 0 Active PEN 100 units/mL PROCEDURES Procedure Date Ordered Result Body Site COBAN TAPE ([id number]) May 23, 2017 SOLOSITE ([id number]) May 23, 2017 RESULTS Name Result Date Reference Range CBC WITH AUTO DIFF 2017-05-23 CORRECT ANC WBC 9.6 HGB 14.3 HCT 42.6 PLATELET 244 RBC 4.65 MCV 91.6 MCH 30.8 MCHC 33.6 RDW 13.2 MPV 9.4 ANC #IG 0.01 #LYMPH 2.3 #EOS 0.1 #MONO 0.4 #BASO 0.0 NEUTROPHIL % 70.6 IG% 0.1 LYMPHOCYTE % 23.5 MONOCYTE % 4.6 EOSINOPHIL % 0.8 BASOPHIL % 0.4 ATYP LYMPH PLT MORPH PROMYELO MACRO MICRO NRBC HYPO BLAST ANISO BAND BASO EOS LYMPH META MONO MYELO POIK RBC MORPH SEG MANUAL DIFF #IMM GRAN %IMM GRAN COMPMET 2017-05-23 ALBUMIN 4.1 ALKPHOS 50 ALT 19 AST 18 BUN 19 CALCIUM 10.2 CHLORIDE 97 CARBON DIOXIDE 30 CREATININE STANDARDIZED .78 DIRECT BILIRUBIN ESTIMATED GLOMERULAR FILTRATION >60 GLUCOSE 184 POTASSIUM 4.2 SODIUM 135 TOTAL BILIRUBIN 0.8 TOTAL PROTEIN 7.1 EGFR INTERPRETATION BUN/CREAT CORRECT AGE zzGLUCOSE zzCREATININE zzSODIUM zzPOTASSIUM zzCHLORIDE zzCO2 zzCALCIUM zzTOTAL PROTEIN zzALBUMIN zzTOTAL BILI zzALT zzAST zzALKALINE PHOS BUN*/CREAT* CRP-INFLAM 2017-05-23 CRP INFLAMATION 10.5 HEMOGLOBIN A1C 2017-05-23 HGA1C 9.6 CALC. MEAN GLUC HB2 reviously reported u SED RATE 2017-05-23 CORRECT SED RATE 25 X Foot L 3V 2017-05-23 Image Accessible X Toe(S) L 2017-05-12 Image Accessible MULTIPLE LABS 2016-12-27 REASON FOR VISIT 1 week f/u, Referral Done-- patient called cancelled will call back to r/s 05/25, see notes , Durable POA document, cellulits referral done, Labs printed for review- Pt went to have NEW labs and Xrays done, Pt states she was on abx that she stopped taking on Sunday, Pt has ingrown L great toenail that she has been dealing with for a while now, Pt is very upset today and nervous to be here, Pt states she saw Dr. Kirby in [facility] and she was very upset , Lab request, updating information Insurance Providers [facility] Health Member Patient Patient Patient Patient Patient Subscriber Subscriber Subscriber Group Insurance Plan Plan Plan Plan ID Relationship Address Phone Name Date of ID Name Date of No Type Insurance Insurance Insurance Coverage to Subscriber Address Phone Name Dates SELF PAY ANY STRE[address] SELF PAY self NAL[place] [id number] [place] [address] INSURANCE MEDICARE [address] MEDICARE self NALDO [id number] [facility] [id number] MEDICARE [address] MEDICARE self NALDO [id number] [facility] [id number] S-MEDICAID EDS [id number] S-MEDICAID self [place] [id number] [place] [address] [place] [facility] [id number] MEDICAID E[place] MEDICAID self [place] [id number] [place] [facility] [place] [id number]
--- OUTSIDE RECORDS SUMMARY | 2021-05-03 07:49 | XMS_ITS ---
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 Apr, [place] [address] [facility] [address] [facility] Apr, Cellulitis L0 3.90 ; [address] [place], [place] left [address] foot L03.032 ; T ype 2 diabetes mellitu s with other skin compl ications E11.628 ; Type 2 diabetes mellitus with hyperglycemia E1 1.65 ; Type 2 diabetes mellitus with diabetic ne uropathy, unspecified E11. 40 ; Type 2 diabetes melli tus with unspecified comp lications E11.8 and Long t erm current use of i nsulin Z79.4 [facility] [address] [facility] Apr, [place] [address] [facility] [address] [facility] [address] Apr, [place] [address] IMMUNIZATIONS No Known Immunizations SOCIAL HISTORY Qualifiers Date Current Smoker REASON FOR REFERRAL FUNCTIONAL STATUS PLAN OF CARE Activity Details Follow Up 1 Week Reason: Future Test CBC WITH AUTO DIFF 20170523 Future Test COMPMET 11424372 Future Test CRP-INFLAM 20170523 Future Test HEMOGLOBIN A1C 79626406 Future Test SED RATE [id number] Future Test X Foot L 3V [id number] VITAL SIGNS MEDICATIONS Medication Instructions Dosage Frequency [...] Date Ordered Result Body Site COBAN TAPE ([id number]) May 23, 2017 SOLOSITE ([id number]) May 23, 2017 RESULTS Name Result Date [...] Pt states she saw Dr. Kirby in [facility] and she was very upset , Lab request, updating information Insurance Providers [facility] Health Member Patient Patient Patient Patient Patient Subscriber Subscriber Subscriber Group Insurance Plan Plan Plan Plan ID Relationship Address Phone Name Date of ID Name Date of No Type Insurance Insurance Insurance Coverage to Subscriber Address Phone Name Dates MEDICARE [address] MEDICARE self NALDO [id number] [facility] [id number] SELF PAY [address] SELF PAY self N[place] [id number] [place] [address] INSURANCE MEDICAID E[place] MEDICAID self N[place] [id number] [place] [employer] [facility] [id number] S-MEDICAID EDS [id number] S-MEDICAID self [place] [id number] [place] [address] [place] [employer] [facility] [id number] MEDICARE 3000 [address] MEDICARE self NALDO [id number] [facility] [id number]
--- OUTSIDE RECORDS SUMMARY | 2021-05-03 07:49 | XMS_ITS ---
:1960 Author Organization [facility], NA DOCUMENT DISCLAIMER The information in the [facility] Continuity of Care Document represents a summary of certain health and medical information. It may not contain the complete medical history for the patient and should be independently verified. The represented time in the document is Eastern Time. PROBLEMS Problem Code Status Onset Date Hypertensive crisis, unspecified I16.9 Active March 22 Pruritus, unspecified L29.9 Active May 10, 2020 Pain, unspecified R52 Active January 04 Moderate protein-calorie malnutrition E44.0 Active Nov Nausea R11.0 Active November 11, 2019 Chest pain, unspecified R07.9 Active September 03, 2019 Encounter for immunization Z23 Active September 03, 2019 Pure hypercholesterolemia, E78.00 Active August 30 20 unspecified Iron deficiency anemia, unspecified D50.9 Active August 31, 2019 Anemia in chronic kidney disease D63.1 Active August 31, 2019 Secondary hyperparathyroidism of renal N25.81 Active August 31, 2019 origin Encounter for adequacy testing for hemodialysis Z49.31 Active August 31, 2019 Encounter for screening for respiratory tuberculosis Z11.1 Active August 31, 2019 Coagulation defect, unspecified D68.9 Active August 31, 2019 Dependence on renal dialysis Z99.2 Active August 29, 2019 Type 2 diabetes mellitus with diabetic E11.40 Active August 28 neuropathy, unspecified Type 2 diabetes mellitus with diabetic E11.51 Active August 28 020 peripheral angiopathy without gangrene Personal history of transient ischemic attack Z86.73 Active August (TIA), and cerebral infarction without residual deficits 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 Active August artery without angina pectoris Hypertensive chronic kidney disease with stage 5 I12.0 Active August 29, 2019 chronic kidney disease or end stage renal disease Other proteinuria R80.8 Active August 29, 2019 termite helper (current) use of insulin Z79.4 Active August 29, 2019 Presence of cardiac pacemaker Z95.0 Active August 29, 2019 Renal agenesis, unilateral Q60.0 Active August 29, 2019 termite helper (current) use of anticoagulants Z79.01 Active August 29, 2019 Bipolar disorder, unspecified F31.9 Active August 29, 2019 Nicotine dependence, cigarettes, uncomplicated F17.210 Active August Type 2 diabetes mellitus with diabetic chronic E11.22 Active 2019 kidney disease End stage renal disease N18.6 Active August 29, 2019 ALLERGIES AND ADVERSE REACTIONS Substance Reaction Severity Status celecoxib Unknown Active diazepam Unknown Active risperidone Unknown Active quetiapine Unknown Active thiothixene Unknown Active phenytoin Unknown Active fosphenytoin Unknown Active latex Unknown Active lidocaine Unknown Active rabies vaccine, human diploid Unknown Active cell divalproex sodium Unknown Active fluoxetine Unknown Active venlafaxine Unknown Active oxycodone Hives Active fesoterodine Unknown Active escitalopram Unknown Active citalopram Unknown Active Sulfa (Sulfonamide Antibiotics) Unknown Acti ve sertraline Unknown Active topiramate Unknown Active amitriptyline Unknown Active procaine Unknown Active nicotine Unknown Active trazodone Unknown Active ibuprofen Unknown Active Percocet Unknown Active hydrocodone Unknown Active paroxetine Unknown Active Tetanus Vaccines and Toxoid Unknown Active Chantix Unknown Active Anesthetics - Ofelia Type- Parabens Unknown Active aripiprazole Unknown Active duloxetine Unknown Active Coumadin Unknown Active prednisone Unknown Active bupropion Unknown Active SOCIAL HISTORY Tobacco Use Status Tobacco Type Unknown if ever consumed tobacco - Caregiver Characteristics No Information Available Characteristics of Home environment No Information Available MEDICATIONS Prescribed Medications for Dialysis Treatments Medication Instructions Dosage Route Start Date End Date Statu s Heparin Intermittent Intravenous - Act vangie Sodium mid run, Every 1999 push February (Porcine) Treatment, units 2020 1,000 Total treatment Units/mL minutes 240 Systemic Bolus, Heparin Every Intravenous - Active Sodium Treatment, 7000 push September 24September 23, (Porcine) Total treatment units 2020 2021 1,000 minutes 240 Units/mL Systemic Every 2 Mircera weeks Intravenous - Active 50 mcg push AprilApril 29, [id number] Every 4 Mircera weeks Intravenous - Discon tinued 30 mcg push JanuaryFebruary 18, [id number] Home Medications Medication Instructions Dosage Route Start Date End Statu s Date amlodipine 10 mg Take by ORAL mouth once a June tablet 2020 Active aspirin 81 mg Take by ORAL mouth once a 1 May 11, day as directed tablet 2019 Acti ve Ativan 1 mg Take by ORAL mouth at August 31, bedtime as tablet 2019 Active needed Ativan 0.5 mg Take by ORAL mouth every six 1 hours as needed tablet February Acti ve 2020 atorvastatin 40 Take by ORAL mg mouth at August 31, bedtime as tablet 2019 Active directed Basaglar KwikPen U-100 Insulin 100 SUBCUTANEOUS unit/mL (3 mL) February Activ e 2020 benztropine 0.5 Take by ORAL mg mouth at August 31, bedtime as tablet 2019 Active directed carvedilol 6.25 Take by ORAL mg mouth twice a day as directed tablet February Act ve 2020 cyanocobalamin Take by ORAL (vitamin B-12) 500 mouth once a August 31 mcg day as directed tablet 2019 Acti ve Eliquis 2.5 mg Take by ORAL mouth twice a August 31 day as directed tablet 2019 Acti ve fosinopril 40 mg Take by ORAL mouth once a 22 July day tablet 2020 Active Lamictal 100 mg Take by ORAL mouth twice a August 31 day as directed tablet 2019 Acti ve mirtazapine 15 Take by ORAL mg mouth at 21 January bedtime as tablet 2019 Active directed mulitvitamin Take by by with minerals mouth once a August 31 as directed tablet 2019 Acti ve NAC 600 mg Take by ORAL mouth twice a January day as directed 2019 Acti ve Novolog PenFill U-100 Insulin 100 SUBCUTANEOUS unit/mL February omeprazole 40 mg Take by ORAL mouth once a 23 April day as directed capsule 2021 Acti ve Renvela 800 mg Take by ORAL mouth three 21 September times a day tablet 2019 Active with meals torsemide 20 mg Take by ORAL mouth once a August 31 day as directed tablet 2019 Acti ve Tylenol Extra Take by ORAL Strength 500 mg mouth twice a August 31, day as needed tablet 2019 Active Vraylar 1.5 mg Take by ORAL mouth every 21 January other day as capsule 2019 Active directed Vraylar 1.5 mg Take by ORAL mouth once a 23 April day as directed capsule 2021 Acti ve VITAL SIGNS Post-Treatment Vital Signs Vital Sign Value Date / Time Blood Pressure-sitting 172/77 mmHg May 02, 2021 11:35 AM Blood Pressure-standing 108/80 mmHg May 02, 2021 11:35 AM Heart Rate 64 beats per minute May 02, 2021 11: 35 AM Respiratory Rate 15 breaths per minute May 02, 2021 1 1:35 AM Temperature 97.2 deg. F May 02, 2021 11: 35 AM Weight Vital Sign Value Date / Time Estimated Dry Weight 78.5 kg April 22, 2021 1 1:59 PM Pre-Dialysis 86.30 kg May 02, 2021 11: 35 AM Post-Dialysis 80.90 kg May 02, 2021 11: 35 AM Other Other Value Date / Time Height 167 cm September 01, 2019 12:00 [facility] Tuberculosis Testing TST Date Administered TST Date Read TST Result 09/01/2019 Negative (<5) mm 09/03/2019 LAB RESULTS Hematology Result Type Result Value Relevant Interpretation Date Reference Range HGB 10.8 g/dL Males: 14.0 - Low April 04, 18.0 g/dL 2020 Females: 12.0 - 16.0 g/dL Hemoglobin x 3 32.4 % Male: 14.0 - Low April 04, 18.0 g/dL; 2020 Female: 12.0-16.0 g/dL HCT 31.1 % Males: 42 - 52% Low April 04, Females: 37 - 2020 47% MCH 33.7 pg 27 - 31 pg/cell High April 04, 2021 MCHC 34.6 g/dL 30 - 36 g/dL - April 04, 2021 RDW 14.1 % No Reference - April 04, range provided 2020 Neutrophils 79.6 % 40.0-75.0% High April 04, 2021 Lymphocytes 11.4 % 19.0-48.0% Low April 04, 2021 Monocytes 4.1 % 3.0-10.0% - April 04, 2021 Ferritin 1006 ng/mL Males: 22 - 322 High April 04, ng/mL; Females: 2020 10 - 291 ng/mL Eosinophil 3.1 % 0.0-7.0% - April 04, 2021 Basophils 0.6 % 0.0-1.5% - April 04, 2021 KAREEM 1.3 % 0.0-4.0% - April 04, 2021 Iron 133 mcg/dL Females: 30-160 - April 04, mcg/dL Males: 2020 45-160 mcg/dL UIBC/TIBC 173 mcg/dL 155-355 mcg/dL - April 04, 2021 WBC (No Diff) 5.82 1000/mcL 4.8-10.8 - April 04, thous/mcL 2020 TIBC (Calc) 306 mcg/dL 185-515 mcg/dL - April 04, 2021 RBC 3.20 mill/mcL Males: 4.70 - Low April 04, 6.10 mill/mcL 2020 Females: 4.20 - 5.40 mill/mcL Transferrin Sat. 43 % 20-55% - April 04 , (Calc) 2020 Hemoglobin x 3 31.8 % Male: 14.0 - Low April 11, 18.0 g/dL; 2020 Female: 12.0-16.0 g/dL HGB 10.6 g/dL Males: 14.0 - Low April 11, 18.0 g/dL 2020 Females: 12.0 - 16.0 g/dL HGB 10.2 g/dL Males: 14.0 - Low April 18, 18.0 g/dL 2020 Females: 12.0 - 16.0 g/dL Hemoglobin x 3 30.6 % Male: 14.0 - Low April 18, 18.0 g/dL; 2020 Female: 12.0-16.0 g/dL Hemoglobin x 3 28.8 % Male: 14.0 - Low April 25, 18.0 g/dL; 2021 Female: 12.0-16.0 g/dL HGB 9.6 g/dL Males: 14.0 - Low April 25, 18.0 g/dL 2021 Females: 12.0 - 16.0 g/dL Metabolic/Renal Result Type Result Value Relevant Interpretation Date Reference Range BUN 87 mg/dL 6-19 mg/dl High April 04, 2021 Sodium 132 mEq/L 136-145 mEq/L Low April 04, 2021 Potassium 5.6 mEq/L 3.5-5.1 mEq/L High April 04, 2021 Chloride 94 mEq/L 96-108 mEq/L Low April 04, 2021 Bicarbonate 24 mEq/L 22-29 mEq/L - April 04, 2021 Hemoglobin A1c 4.9 % 4.8-5.9% - April 04, 2021 BUN, Post 21 mg/dL 6-19 mg/dL High April 04, 2021 URR, Calc 76 % 65 - 80% - April 04, 2021 HD Adequacy Result Type Result Value Relevant Interpretation Date Reference Range eKt/V 1.48 No Reference Normal April 04, ([place]) range provided 2020 spKt/V 1.70 No Reference Normal April 04, ([place] II) range provided 2020 Bone/Mineral Result Type Result Value Relevant Interpretation Date Reference Range PTH-Intact, Plasma 107 pg/mL 16 to 80 pg/mL High Decembe r 2020 Calcium, Total 9.3 mg/dL 8.4-10.2 mg/dL - March Phosphorus 4.1 mg/dL 2.6-4.5 mg/dL - April 04, 2021 Ca x P Product 38 < 55 - April 04, 2021 Alkaline 125 U/L Males: 40-129 High April 04, Phosphatase U/L, > 15 yrs 2020 Females: 35 - 104 U/L, > 15 yrs Corrected Ca x P 39 < 55 - April 04 , Product 2020 Liver/Nutrition Result Type Result Value Relevant Interpretation Date Reference Range Albumin (BCG) 3.9 g/dL 3.5-5.2 g/dL - April 04, 2021 Infectious Diseases Result Type Result Value Relevant Interpretation Date Reference Range HCV Ab Nonreactive Non-Reactive - May 03, (anti-HCV) 2020 Hep B Surface 165 mIU/mL < 10 mIU/mL, - November 29 Ab (anti-HBs) Non- Immune Hep B Surface Negative Negative - April 04, Ag (HBsAg) 2020 DIALYSIS PRESCRIPTION Conventional Hemodialysis Data Element Value Order Date/Time April 22, 2021 Frequency 3X Week Treatment Days MonWedFri Dialyzer [id number] Optiflux Treatment Time (Total Minutes) 240 min Blood Flow Rate (mL/min) 450 mL/min Dialysate Flow Rate Autoflow 1.5 Estimated Dry Weight 78.5 kg Dialysate Concentrate 2.0 K, 2.5 Ca, 1.0 Mg, 100 D extrose (G2251) Sodium (mEq/L) 137 meq/L Bicarb Machine Setting (mEq/L) 35 meq/L Dialysis Access Hemodialysis-AV Graft-Synthe tic - [place] Acuseal, Right Upper Arm, Brachial Artery to Axillary Vein Access Placed on May 252020 IMMUNIZATIONS Vaccine Date Dose Route Status Moderna COVID-11 March Intramuscular Co mpleted Vaccine, Booster 2020 0.25 mL Fluarix, January Intramuscular Complet ed quadrivalent, 2020 0.5 mL preservative free [id number], November 01, Intramuscular Co mpleted series 4 of 2020 40.0 mcg [id number], June 28, Intramuscular C ompleted series 3 of 2020 40.0 mcg [id number], May Intramuscular Co mpleted series 2 of 2020 40.0 mcg [id number], April Intramuscular Com pleted series 1 of 4 2020 40.0 mcg [id number], February Intramuscular Co mpleted series 4 of 2019 40.0 mcg [id number] November 23, Intramuscular Comp leted 2020 0.5 mL [id number], November 02, Intramuscular Co mpleted series 3 of 2019 40.0 mcg [id number] 28, Intramuscular Co mpleted series 2 of 2019 40.0 mcg PREVNAR September 28, Intramuscular Comple melvin 2019 0.5 mL [id number] September 02, Intramuscular Comp leted 2020 40.0 mcg TRANSPLANT WAITLIST STATUS No Information on Transplant Waitlist Status ADVANCE DIRECTIVES Directive Description Ordered By Effective Date Resuscitation status Full Code Beto Hernandezalma May 07 2 DIALYSIS TREATMENTS Conventional Hemodialysis Date Pre-Treatment Post-Treatment Duration BFR Dialysate Dialyzer Dialysis Meds Vitals Vitals (hr) (mL/min) Access Admin April Weight 84.30 Weight 80.50 03:49:00 450 2.0 K, 180nre Hemodia lysis-AV Graft-Synthetic - [place] Acuseal, Right Upper Arm, Brachial Artery to Axillary Vein Heparin Sodium (Porcine) 1,000 Units/mL Systemic; 2000units,Intravenous - push 2021 kg kg 2.5 Ca, Optiflux Access Plac ed on June 15, 2020 Heparin Sodium (Porcine) 1,000 Units/mL Systemic; 7000units,Intravenous - push 1.0 Mg, 100 Dextrose (G2251) Blood Pressure-sitting 188/78 mmHg Blood Pressure-sitting 14 5/72 mmHg Heart Rate 66 beats per Blood Pressure-standing 153/63 m mHg minute Respiratory Rate 16 breaths per Heart Rate 67 beats per minute minute Temperature 97.2 deg. F Respiratory Rate 14 breaths per minute - - Temperature 97.5 deg. F April Weight 84.10 Weight 80.80 03:59:00 450 2.0 K, 180nre Hemodia lysis-AV Graft-Synthetic - [place] Acuseal, Right Upper Arm, Brachial Artery to Axillary Vein Heparin Sodium (Porcine) 1,000 Units/mL Systemic; 1999units,Intravenous - push 2021 kg kg 2.5 Ca, Optiflux Access Plac ed on June 15, 2020 Heparin Sodium (Porcine) 1,000 Units/mL Systemic; 7000units,Intravenous - push 1.0 Mg, Mircera; 50m cg,Intravenous - push 100 Dextrose (G2251) Blood Pressure-sitting 172/67 mmHg Blood Pressure-sitting 16 5/79 mmHg Heart Rate 76 beats per Blood Pressure-standing 147/68 m mHg minute Respiratory Rate 14 breaths per Heart Rate 66 beats per minute minute Temperature 97.8 deg. F Respiratory Rate 14 breaths per minute - - Temperature 96.8 deg. F April Weight 86.30 Weight 80.90 04:01:00 450 2.0 K, 180nre Hemodia lysis-AV Graft-Synthetic - [place] Acuseal, Right Upper Arm, Brachial Artery to Axillary Vein Heparin Sodium (Porcine) 1,000 Units/mL Systemic; 1999units,Intravenous - push 2021 kg kg 2.5 Ca, Optiflux Access Plac ed on June 15, 2020 Heparin Sodium (Porcine) 1,000 Units/mL Systemic; 7000units,Intravenous - push 1.0 Mg, 100 Dextrose (G2251) Blood Pressure-sitting 177/80 mmHg Blood Pressure-sitting 17 2/77 mmHg Heart Rate 61 beats per Blood Pressure-standing 108/80 m mHg minute Respiratory Rate 12 breaths per Heart Rate 64 beats per minute minute Temperature 97.2 deg. F Respiratory Rate 15 breaths per minute - - Temperature 97.2 deg. F
--- OUTSIDE RECORDS SUMMARY | 2021-05-03 07:49 | XMS_ITS ---
:1960 Author Care Team Providers Name Role Phone DR. ELMER CHAHAL Primary Care Provider [phone] DR. ELMER CHAHAL Referring Provider [phone] Allergies Code Code System Name Reaction Severity Status Onset 161 RxNorm Acetaminophen ? ? Active ? 704 RxNorm Amitriptyline ? ? Active ? Anesthetics - ? ? Active ? Amide Type - Select Amino Amides Anesthetics - ? ? Active ? Ofelia Type- Parabens 37619 RxNorm Aripiprazole ? ? Active ? 29635 RxNorm Bupropion ? ? Active ? 078258 RxNorm Celebrex ? ? Active ? 867858 RxNorm Celecoxib ? ? Active ? 995085 RxNorm Celexa ? ? Active ? 393600 RxNorm Cerebyx ? ? Active ? 114189 RxNorm Chantix ? ? Active ? 2556 RxNorm Citalopram ? ? Active ? 664048 RxNorm Cymbalta ? ? Active ? 3322 RxNorm Diazepam ? ? Active ? 580347 RxNorm Dilantin ? ? Active ? Divalproex Sodium ? ? Active ? Effexor ? ? Active ? 516319 RxNorm Fesoterodine ? ? Active ? 94443 RxNorm Gabapentin ? ? Active ? 5640 RxNorm Ibuprofen ? ? Active ? 0904371 RxNorm Latex ? ? Active ? 042813 RxNorm Lexapro ? ? Active ? 6387 RxNorm Lidocaine ? ? Active ? 449712 RxNorm Nicoderm Cq ? ? Active ? 7407 RxNorm Nicotine ? ? Active ? 382977 RxNorm Paxil ? ? Active ? 8640 RxNorm Prednisone ? ? Active ? 8701 RxNorm Procaine ? ? Active ? 44883 RxNorm Prozac ? ? Active ? 298137 RxNorm Risperdal ? ? Active ? 81025 RxNorm Seroquel ? ? Active ? 96636 RxNorm Sertraline ? ? Active ? Sulfa (Sulfonamide ? ? Active ? Antibiotics) Tetanus and ? ? Active ? Diphtheria Toxoids 48955 RxNorm Thiothixene ? ? Active ? 66752 RxNorm Topiramate ? ? Active ? 28246 RxNorm Trazodone ? ? Active ? 718322 RxNorm Valium ? ? Active ? 656093 RxNorm Vicodin ? ? Active ? Wellbutrin ? ? Active ? 20935 RxNorm Zoloft ? ? Active ? Notes: rabbies vaccine MRI due to pacer leads Medications Name Status Start Date Stop Date ? ? acetaminophen 500 mg tablet Active ? Not available Take 2 tablets 3 times a day by oral route as needed. alpha lipoic acid 300 mg capsule Active ? Not available Take 1 capsule every day by oral route. Amino Acid Active ? Not available 2 tabs in the am 1 tab in the pm amoxicillin 500 mg tablet Active ? Not av ailable Take 1 tablet twice a day by oral route. apixaban 5 mg tablet Active ? Not availab le Take 1 tablet twice a day by oral route. atorvastatin 40 mg tablet Active ? Not av ailable Take 1 tablet every day by oral route. benztropine 0.5 mg tablet Active ? Not av ailable Take 1 tablet every day by oral route at bedtime. cariprazine 1.5 mg capsule Active ? Not a vailable Take 1 capsule every day by oral route. cefadroxil 1 gram tablet Active ? Not kati ilable Take 1 tablet twice a day by oral route. ciclopirox 8 % topical solution Active ? Not available APPLY TO THE AFFECTED AREA(S) BY TOPICA L ROUTE ONCE DAILY PREFERABLY AT BEDTIME OR 8 HOURS BEFORE WASHING colchicine 0.6 mg tablet Active ? Not kati ilable TAKE 2 TABLETs then 1 tablet in 1 hour later Drisdol 1,250 mcg (50,000 unit) capsule Active ? Not available Take 1 capsule every month by oral route. gabapentin 300 mg capsule Active ? Not av ailable Take 1 capsule twice a day by oral route. Glucerna Active ? Not available 237 mL daily [facility] Naproxen Sodium 220 mg tablet Active ? Not available Take 2 tablets every 12 hours by oral route as needed. insulin aspart (niacinamide)(U-100) 100 unit/mL(3 mL) subcutaneo us pen Active ? Not available Inject 10 units every day by subcutaneous route. lamotrigine 100 mg tablet Active ? Not av ailable Take 1 tablet twice a day by oral route. Lantus Solostar U-100 Insulin 100 unit/mL (3 mL) subcutaneous pe n Active ? Not available Inject 35 units every day by subcutaneous route. Lasix 20 mg tablet Completed ? 03/01/2021 Take 1 tablet every day by oral route. levomefolate calcium 15 mg tablet Active ? Not available Take 1 tablet every day by oral route. lorazepam 0.5 mg tablet Completed ? 05/05/19 20 Take 1 tablet every day by oral route. lorazepam 1 mg tablet Active ? Not availa ble Take 1 tablet every day by oral route at bedtime. melatonin 3 mg tablet Active ? Not availa ble Take 1 tablet every day by oral route at bedtime. mirtazapine 15 mg tablet Active ? Not kati ilable Take 1 tablet every day by oral route. multivitamin Active ? Not available mupirocin 2 % topical ointment Active ? N ot available APPLY A SMALL AMOUNT TO THE AFFECTED AREA BY TOPICAL ROUTE 3 TI MES PER DAY nicotine (polacrilex) 4 mg gum Active ? N ot available Chew 1 piece of gum every 2 hours by oral route as needed. Novolog U-100 Insulin aspart 100 unit/mL subcutaneous solution A ctive ? Not available per BG treat to target plan Problems Name Status Onset Date Source ? [...] ? Lower Limb Ischemia Active 05/05/2019 ? Peripheral Vascular Disease Unknown 05/05/2019 ? Cellulitis Active 05/05/2019 ? Cardiac [...] ? Cardiac Surgery Information not avai lable Results Lab Results None recorded. Past Encounters 03/01/2021 Ingrowing Toenail; Onychomycosis of Toen ails; Pain of Toe of Left Foot; Pain of Toe of Right Foot; Bilateral Atherosclerosis of Arteries of Lower Limbs; Neuropathy Due to Diabetes Mellitus; Eczema Rd Uriarte DPM: [address] [place] [phone], Ph. 12/28/2020 Ingrowing Toenail; Onychomycosis of Toen ails; Pain of Toe of Left Foot; Pain of Toe of Right Foot; Bilateral Atherosclerosis of Arteries of Lower Limbs; Neuropathy Due to Diabetes Mellitus Rd Uriarte DPM: [address] [place] [phone], Ph. 09/28/2020 Ingrowing Toenail; Onychomycosis of Toen ails; Pain of Toe of Left Foot; Pain of Toe of Right Foot; Bilateral Atherosclerosis of Arteries of Lower Limbs; Neuropathy Due to Diabetes Mellitus Rd Uriarte DPM: [address] [place] [phone], Ph. 06/24/2020 Onychomycosis of Toenails; Ingrowing Toe nail; Pain of Toe of Right Foot; Pain of Toe of Left Foot; Bilateral Atherosclerosis of Arteries of Lower Limbs; Diabetic Peripheral Neuropathy Rd Uriarte DPM: [address] [place] [phone], Ph. 04/08/2020 Polyneuropathy Due to Type 2 Diabetes Me llitus; Bilateral Atherosclerosis of Arteries of Lower Limbs; Onychomycosis of Toenails Angela Mendez DPM: [address] [place] [phone], Ph. 11/11/2019 Pain in Toe; Onychomycosis of Toenails Lester PembertonKaruna: [address] [place] [address], Ph. Social History Tobacco Smoking Status Light Tobacco Smoker (1/4 pack per da y) Vaccine List None recorded. Plan of Care Patient Instructions Apply ciclopirox or something simil ar to the toenails daily Reminders Provider Appointments None recorded. ? ? Lab None recorded. ? ? Referral None recorded. ? ? Procedures None recorded. ? ? Surgeries None recorded. ? ? Imaging None recorded. ? ? Vitals 03/01/2021 02:45PM Foot Care Height 172.72 cm 09/28/2020 12:30PM DIABETIC FOOT CARE Height 172.72 cm 06/24/2020 01:00PM Foot Care Height Weight BMI Blood Pressure 172.72 cm 128/74 mm[Hg] 11/11/2019 09:45AM Foot Care Height Weight BMI Blood Pressure 172.72 cm 91.63 kg 30.7 kg/m2 120/74 mm[Hg] 09/09/2019 09:45AM Foot Care Height Weight BMI Blood Pressure 172.72 cm 91.63 kg 30.7 kg/m2 120/74 mm[Hg] 05/19/2019 09:15AM DIABETIC FOOT CARE Height Weight BMI Blood Pressure 172.72 cm 91.72 kg 30.7 kg/m2 124/66 mm[Hg]
[2021-05-03 08:01] VITALS: BP 157/73; PULSE 71; RESP 14; TEMP 36.7; O2SAT 98
[2021-05-03 08:06] VITALS: RESP 16
--- NOTE | 2021-05-03 08:16 | W.ED.GENAD ---
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 Primary Care Provider: Rosaura Fragoso ED Provider: Yomi Rocha Home Meds and New Rx's Prescriptions: Continued mirtazapine 15 mg tablet 15 mg PO QHS RF: 0 sevelamer carbonate [Renvela] 800 mg tablet 800 mg PO TID RF: 0 acetylcysteine [NAC] 600 mg capsule 600 mg PO BID RF: 0 acetaminophen [Acetaminophen Extra Strength] 500 mg tablet 1,000 mg PO BID PRN (Reason: fever or pain) RF: 0 omeprazole 40 mg capsule,delayed release(DR/EC) 40 mg PO DAILY Qty: 90 RF: 1 (DME) Blood Glucose Test strip See Dose Instructions .ROUTE .MEDSUPPLY Qty: 300 RF: 3 (DME) Adult Briefs - Large misc See Dose Instructions .ROUTE .MEDSUPPLY Qty: 150 RF: 12 lamotrigine 100 mg tablet 100 mg PO BID RF: 0 lorazepam 1 mg tablet 1 mg PO HS RF: 0 benztropine 0.5 mg tablet 0.5 mg PO HS RF: 0 multivitamin [Daily Multi-Vitamin] Tablet 1 tab PO DAILY Qty: 90 RF: 3 Eliquis 5 mg tablet 2.5 mg PO BID Qty: 180 RF: 3 cyanocobalamin (vitamin B-12) [Vitamin B-12] 500 mcg tablet 500 mcg PO DAILY RF: 0 torsemide 20 mg tablet 40 mg PO DAILY RF: 0 nystatin 100,000 unit/gram powder 1 applic topical BID Qty: 60 RF: 1 aspirin [Adult Aspirin Regimen] 81 mg tablet,delayed release (DR/EC) 81 mg PO DAILY Qty: 90 RF: 3 fosinopril 10 mg tablet 10 mg PO DAILY RF: 0 acetylcysteine [NAC] 600 mg capsule 600 mg PO .COMPLEX RF: 0 Vraylar 1.5 mg capsule 1.5 mg PO DAILY RF: 0 insulin aspart U-100 [Novolog Flexpen U-100 Insulin] 100 unit/mL (3 mL) insulin pen See Rx Instructions subcut AC Qty: 15 RF: 3 (DME) pen needle, diabetic 31 gauge x 1/3 needle 1 ea Miscellaneous QID Qty: 100 RF: 3 atorvastatin 40 mg tablet 40 mg PO DAILY Qty: 90 RF: 3 amlodipine 10 mg tablet 10 mg PO DAILY Qty: 90 RF: 3 calcium carbonate [Tums Freshers] 200 mg calcium (500 mg) tablet,chewable 200 mg PO DAILY PRNRF: 0 carvedilol 6.25 mg tablet 6.25 mg PO BID RF: 0 Discharge Instructions Additional Instructions: Keep the area gently bandaged. Do not pick at it or rub the area that was bleeding. This could pull the glue off which would cause the bleeding to recur. If you notice any worsening of your symptoms, or any new symptoms such as vomiting, diarrhea, fever, chills, shortness of breath, chest pain, numbness, weakness, or fainting , please return immediately to the emergency department for reevaluation. Please follow up with your primary care provider as soon as possible for reassessment and reevaluation. As always, it was a pleasure participating in your medical care today. Referrals: Rosaura Fragoso NP [Primary Care Provider] - Medical Decision Making This is a 60-year-old female with past medical history of renal failure on dialysis as well as on chronic anticoagulation of Eliquis presents today for bleeding from her right arm fistula. Patient states that she was stuck 3 times in her right arm at dialysis yesterday. Some mild bleeding she was bandaged, unfortunately throughout the night and today she has had continued mild oozing from the site. It is been bandaged and read bandage multiple times at home without any cessation. She denies any other trauma. She denies lightheadedness chest pain or shortness of breath. She was sent by her home health care provider. No other complaints at this time. No other modifying factors. Physical exam demonstrates a very small small puncture wound on her right fistula. Palpable thrill is still present. No squirting of blood, just a small slight ooze. The superficial skin area was pinched with hemostat gently, this stopped the bleeding a small area of Dermabond was placed over top of this, was allowed to dry, and reevaluated no bleeding continued. Patient was bandaged. Patient appropriate for discharge. Stable, no signs of hemodynamic instability. Patient will be discharged home. Discussed the case with the patient's caregiver over the phone. Mady. I have extensively reviewed the treatment plan and discharge instructions with the patient and their family. I have addressed all patient concerns at this time. The patient and family was made aware of what symptoms to monitor for that would warrant a return to the emergency department. Discussed the plan with the patient and family, they demonstrate verbal understanding and agreement with our assessment and plan at this time. The documentation in this chart was dictated using [employer] dictation software. Please excuse any dictation errors. HPI General Date/Time Provider Initiated Documentation: 05/03/21 07:44. HPI Narrative: This is a 60-year-old female with past medical history of renal failure on dialysis as well as on chronic anticoagulation of Eliquis presents today for bleeding from her right arm fistula. Patient states that she was stuck 3 times in her right arm at dialysis yesterday. Some mild bleeding she was bandaged, unfortunately throughout the night and today she has had continued mild oozing from the site. It is been bandaged and read bandage multiple times at home without any cessation. She denies any other trauma. She denies lightheadedness chest pain or shortness of breath. She was sent by her home health care provider. No other complaints at this time. No other modifying factors. Related Data Home Medications Medication Instructions Recorded Confirmed blood sugar diagnostic #300 each 05/06/18 04/06/21 lamotrigine 100 mg tablet 100 mg PO BID tab 05/09/18 05/03/21 lorazepam 1 mg tablet 1 mg PO HS 05/09/18 05/03/21 diaper,brief,adult,disposable #150 each 07/25/18 04/06/21 benztropine 0.5 mg tablet 0.5 mg PO HS tab 03/06/19 05/03/21 multivitamin 1 tab PO DAILY #90 tab 05/15/19 05/03/21 apixaban 5 mg tablet 2.5 mg PO BID #180 tab 07/14/19 05/03/21 cyanocobalamin (vitamin B-12) 500 500 mcg PO DAILY 08/05/19 05/03/21 mcg tablet torsemide 20 mg tablet 40 mg PO DAILY tab 08/08/19 05/03/21 nystatin 100,000 unit/gram topical 1 applic TOPICAL BID #60 g 02/04/20 05/03/21 powder acetylcysteine 600 mg capsule 600 mg PO BID 02/11/20 05/03/21 mirtazapine 15 mg tablet 15 mg PO QHS 02/11/20 05/03/21 sevelamer carbonate 800 mg tablet 800 mg PO TID 02/11/20 05/03/21 acetaminophen 500 mg tablet 1,000 mg PO BID PRN tab 07/06/20 05/03/21 aspirin 81 mg tablet,delayed 81 mg PO DAILY #90 tab 08/23/20 05/03/21 release acetylcysteine 600 mg capsule 600 mg PO .COMPLEX 08/25/20 05/03/21 fosinopril 10 mg tablet 10 mg PO DAILY 08/25/20 05/03/21 cariprazine 1.5 mg capsule 1.5 mg PO DAILY cap 10/27/20 05/03/21 insulin aspart U-100 100 unit/mL See Rx Instructions SUBCUT AC #15 12/16/20 05/03/21 (3 mL) subcutaneous pen ml omeprazole 40 mg capsule,delayed 40 mg PO DAILY #90 cap 01/13/21 05/03/21 release pen needle, diabetic 31 gauge x #100 each 02/17/21 04/06/2104/25 atorvastatin 40 mg tablet 40 mg PO DAILY #90 tab 02/28/21 05/03/21 amlodipine 10 mg tablet 10 mg PO DAILY #90 tab 03/07/21 05/03/21 calcium carbonate 200 mg calcium 200 mg PO DAILY PRN tab 03/18/21 05/03/21 (500 mg) chewable tablet carvedilol 6.25 mg tablet 6.25 mg PO BID 03/18/21 05/03/21 Previous Rx's Medication Instructions Recorded blood sugar diagnostic #300 each 05/06/18 diaper,brief,adult,disposable #150 each 07/25/18 multivitamin 1 tab PO DAILY #90 tab 05/15/19 apixaban 5 mg tablet 2.5 mg PO BID #180 tab 07/14/19 nystatin 100,000 unit/gram topical 1 applic TOPICAL BID #60 g 02/04/20 powder aspirin 81 mg tablet,delayed 81 mg PO DAILY #90 tab 08/23/20 release insulin aspart U-100 100 unit/mL See Rx Instructions SUBCUT AC #15 12/16/20 (3 mL) subcutaneous pen ml omeprazole 40 mg capsule,delayed 40 mg PO DAILY #90 cap 01/13/21 release pen needle, diabetic 31 gauge x #100 each 10/28/21 1/3 atorvastatin 40 mg tablet 40 mg PO DAILY #90 tab 02/28/21 amlodipine 10 mg tablet 10 mg PO DAILY #90 tab 03/07/21 Allergies Allergy/AdvReac Type Severity Reaction Status Date / Time aripiprazole [From Abilify] Allergy Severe Verified 05/03/21 08:07 duloxetine HCl Allergy Severe Hives Verified 05/03/21 08:07 [From Cymbalta] oxycodone Allergy Severe Hives Verified 05/03/21 08:07 Sulfa (Sulfonamide Allergy Severe Skin Rash Verified 05/03/21 08:07 Antibiotics) amitriptyline Allergy Intermediate Verified 05/03/21 08:07 citalopram Allergy Intermediate HIVES Verified 05/03/21 08:07 fesoterodine Allergy Intermediate HIVES Verified 05/03/21 08:07 latex Allergy Intermediate Hives Verified 05/03/21 08:07 rabies vaccine, human Allergy Intermediate Verified 05/03/21 08:07 diploid cell [Rabies Vaccine,Human Diploid] Tetanus Vaccines and Toxoid Allergy Intermediate Swelling/Ed Verified 05/03/21 08:07 [Tetanus Vaccines & Toxoid] ghulam acetaminophen [From Vicodin] Allergy Unknown Verified 05/03/21 08:07 bupropion HCl Allergy Unknown Verified 05/03/21 08:07 [From Wellbutrin] celecoxib [From Celebrex] Allergy Unknown Verified 05/03/21 08:07 diazepam [From Valium] Allergy Unknown Verified 05/03/21 08:07 divalproex sodium Allergy Unknown Verified 05/03/21 08:07 [From Depakote] escitalopram oxalate Allergy Unknown Verified 05/03/21 08:07 [From Lexapro] fluoxetine HCl [From Prozac] Allergy Unknown Verified 05/03/21 08:07 fosphenytoin sodium Allergy Unknown Verified 05/03/21 08:07 [From Cerebyx] hydrocodone bitartrate Allergy Unknown Verified 05/03/21 08:07 [From Vicodin] morphine Allergy Unknown Verified 05/03/21 08:07 nicotine [From Nicoderm CQ] Allergy Unknown rash/hives Verified 05/03/21 08:07 paroxetine HCl [From Paxil] Allergy Unknown Verified 05/03/21 08:07 phenytoin sodium Allergy Unknown Verified 05/03/21 08:07 [From Dilantin] phenytoin sodium extended Allergy Unknown Verified 05/03/21 08:07 [From Dilantin] prednisone Allergy Unknown Verified 05/03/21 08:07 procaine HCl [From Novocain] Allergy Unknown Verified 05/03/21 08:07 quetiapine Allergy Unknown Verified 05/03/21 08:07 quetiapine fumarate Allergy Unknown Verified 05/03/21 08:07 [From Seroquel] risperidone [From Risperdal] Allergy Unknown Verified 05/03/21 08:07 sertraline Allergy Unknown Hives Verified 05/03/21 08:07 trazodone Allergy Unknown Verified 05/03/21 08:07 venlafaxine HCl Allergy Unknown Verified 05/03/21 08:07 [From Effexor] warfarin [From Coumadin] Allergy none Verified 05/03/21 08:07 listed on referral thiothixene [Thiothixene] AdvReac Severe Nausea Verified 05/03/21 08:07 topiramate AdvReac Intermediate Nausea Verified 05/03/21 08:07 gabapentin AdvReac Unknown Severe Verified 05/03/21 08:07 dizziness, runs; vomiting lidocaine AdvReac Unknown Nausea Verified 05/03/21 08:07 ibuprofen AdvReac headache Verified 05/03/21 08:07 and nausea melatonin AdvReac nightmares Verified 05/03/21 08:07 varenicline tartrate AdvReac Psychosis Verified 05/03/21 08:07 [From Chantix] ABSOLUTE CONTRAINDICATION AdvReac Severe Headache Uncoded 05/03/21 08:07 FOR MRI (disconnected RV pacer lead) general anesthia AdvReac Unknown Uncoded 05/03/21 08:07 General Stated Complaint: Vascular ASIM: 3 Review of Systems All systems reviewed & are unremarkable except as noted in HPI and below PFSH All Active Problems 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 (Acute) Diarrhea (Acute) Nausea & vomiting (Acute) Depression (Chronic) End stage renal disease (Acute) 07/21/20 [facility] [place] Hemodialysis patient (Acute) Papanicolaou smear declined (Acute) Colon cancer screening declined (Acute) Mammogram declined (Acute) Discoloration and thickening of nails both feet (Acute) Hemodialysis patient (Acute) Sinusitis (Acute) Tobacco use disorder (Chronic) Hypertension (Chronic ~06/20/19) Goal <130/80 [facility] CKD (chronic kidney disease) stage 4, GFR 15-29 ml/min (Acute ~06/20/19) GFR approx 20 absent rgt kidney, uncontrolled DM , left renal cortical scarring per [facility] 06/19/19 and 07/2019 Determined kidney biopsy not necessary. Dysuria (Acute) Memory deficit (Acute) Solitary left kidney (Acute) Decreased GFR (Acute) Viral syndrome (Acute) Bilateral leg edema (Acute) Colonoscopy refused (Acute) Seizure (Acute) Urinary incontinence (Acute 02/11/15) Urge incontinence (Chronic) Elevated cholesterol (Chronic) Fracture of radial neck, left, closed (Acute) H/O endarterectomy (Chronic) Non-adherence to medical treatment (Acute) Type 2 diabetes mellitus (Chronic) Sinus bradycardia (Chronic) S/p pacemaker. Generator change 12/2013 [facility] [place]). Pocket revision & new RV lead 10/2014 [facility] [place] Postmenopausal (Chronic) LMP ~2004 Bipolar 1 disorder (Chronic) Paranoia (Chronic 12/19/16) Pacemaker (Chronic 10/22/14) for bradycardia and sinus node dysfunction DDD pacer 2004 in [place] Medtronic dual lead programmed VVI - PG replaced 01/01/2014 [facility] [place] Old RV lead abandoned PTSD (post-traumatic stress disorder) (Chronic 05/28/17) PAD (peripheral artery disease) (Chronic 08/13/17) Meralgia paresthetica, right lower limb (Chronic 11/05/15) Dr. 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 Congenital single kidney (Chronic 03/08/15) by xray from [facility] 03/17/09 in scanned records Adult BMI > 30 (Chronic 06/07/15) Stroke (Chronic) R parietal; asymptomatic; Medical History Sinus node dysfunction (10/22/14) Surgical History aortobifemoral bypass (09/07/17) [facility] [place] vascular. August 2017 section (~1985) Pacemaker (~2004) [place] S/P angioplasty (01/30/18) left femoral endarterectomy and patch angioplasty, Aortogram, Over the wire Left ABF graft thrombectomy, Open ledt ABF thrombectomy, left ABF graft stent (VBX 8x39) S/P aortobifemoral bypass surgery Family History Mother No problems noted. Father No problems noted. Sister No problems noted. Social History Smoking/Tobacco Use Status: Current every day Tobacco Type: cigarettes Smoking risk assessment performed?: Yes Alcohol Intake: never Drug use: Never Substance use type: does not use Adopted: No Number of Children: 1 Do you need help understanding health information?: Always current occupation: disabliilty What type of physical activity do you participate in: walking Duration: 15-30 minutes/day Frequency: 3-4 times per week Do you feel safe at home: Yes Do you feel safe in your relationship?: Yes Exam Narrative Exam Narrative: 1.Const: Well-nourished, Well-developed, appearing stated age 2.Eyes: PERRL, no conjunctival injection, and symmetrical lids. 3.ENT: Atraumatic external nose and ears. Moist MM. Neck: Symmetric, trachea midline, No thyromegaly. 4.CVS: +S1/S2, No murmurs or gallops. Peripheral pulses 2+ and equal in all extremities. Brisk capillary refill in all extremities. 5.RESP: Unlabored respiratory effort. Clear to auscultation bilaterally. No wheezes rales or rhonchi 6.GI: Soft, Nontender/Nondistended, No hepatosplenomegaly. No guarding or rebound. 7.MSK: Normocephalic/Atraumatic, Extremities w/o deformity or ttp No cyanosis or clubbing, Normal movement of all extremities 8.Skin: Right arm demonstrates an intact fistula with good palpable thrill. There is a small small puncture site that has a continuous mild ooze of blood from it. No squirting. Distal neurovascular exam is appropriate and unremarkable. 9.Neuro: risk management intern II-XII grossly intact. Sensation grossly intact, no focal neurologic deficits. 10.Psych: (AAO) x3. Appropriate mood and affect Course Vital Signs Vital signs: Vital Signs Temperature 36.7 C 05/03/21 08:01 Pulse 71 05/03/21 08:01 Respiratory Rate 14 05/03/21 08:01 Blood Pressure 157/73 H 05/03/21 08:01 Pulse Oximetry 98 05/03/21 08:01 Temperature 36.7 C 05/03/21 08:01 Pulse 71 05/03/21 08:01 Respiratory Rate 16 05/03/21 08:06 Respiratory Effort Non-Labored 05/03/21 08:06 Respiratory Depth Normal 05/03/21 08:06 Respiratory Pattern Normal 05/03/21 08:06 Blood Pressure 157/73 H 05/03/21 08:01 Blood Pressure Position Sitting 05/03/21 08:01 Pulse Oximetry 98 05/03/21 08:01 Pain Level 0 05/03/21 08:01
[2021-05-03] MEDS: Gelatin SPONGE 12-7 MM PKT 1 EACH TP (08:17)
== END 2021-05-03 08:28 | disposition home or self-care (01) ==
PROVIDERS: Emergency Provider Student in an Organized Health Care Education/Training Program; PCP Nurse Practitioner
DX: T82.838A Hemorrhage due to vascular prosthetic devices, implants and grafts, initial encounter (principal); I12.9 Hypertensive chronic kidney disease with stage 1 through stage 4 chronic kidney disease, or unspecified chronic kidney disease; F17.210 Nicotine dependence, cigarettes, uncomplicated; N18.4 Chronic kidney disease, stage 4 (severe); Z99.2 Dependence on renal dialysis; Z79.01 Long term (current) use of anticoagulants
CPT/HCPCS: 99282; 99283

== ENCOUNTER 2021-05-23 08:00 | Emergency (ER) | payer MEDICARE, MEDICAID, SELFPAY ==
[2021-05-23] VITALS (57 sets, daily range): BP systolic 144–211; BP diastolic 66–128; PULSE 61–160; RESP 15–35; TEMP 36.3; O2SAT 77–100
--- NOTE | 2021-05-23 08:00 | RT.EKG_ITS ---
APPROVED REPORT Exam: Resting ECG Reason for Exam: SOB Patient Location: E HR:68 bpm ECG Measurements Heart Rate 68 AXIS MD 182 P 51 QRSd 107 QRS -26 QT 407 T 72 QTc 433 Conclusion Sinus rhythm...normal P axis, V-rate 60- 99 Probable left atrial enlargement...P >50mS, <-0.10mV V1 Anterior infarct, old...Q >40mS, abnormal ST-T, V2-V5 Nonspecific T abnormalities, lateral leads...T <-0.10mV, I aVL V5 V6 sinus rhythm at 68, borderline left axis, Q waves V1 through V3, artifact present V6, no STEMI, nondi agnostic EKG
--- NOTE | 2021-05-23 08:15 | DI.RAD_ITS ---
Exam(s) XR PORTABLE CHEST AP EXAM: XR PORTABLE CHEST AP CLINICAL HISTORY: SOB TECHNIQUE: 2D digital imaging was performed. COMPARISON: CR,XR XR PORTABLE CHEST AP from 07/17/[address] RENAL COLIC WO from 04/09/2020 FINDINGS: There are bilateral pleural effusions, left moderate and small right. Pacemaker is noted. The cardi ac silhouette is mostly obscured by the effusions. There is apparent pulmonary edema seen greater in the right lung. IMPRESSION: Bilateral pleural effusions, left greater than right. Pulmonary edema. DATA REPOSITORY: RADIATION DOSE DELIVERED:
--- NOTE | 2021-05-23 08:28 | ED.GENADUL_ITS ---
Discharge Plan Disposition Patient Disposition: [facility] Discharge Details Clinical Impression: Pulmonary edema, Hypertension Primary Care Provider: Rosaura Fragoso ED Provider: Shireen Long Home Meds and New Rx's Prescriptions: No Action mirtazapine 15 mg tablet 15 mg PO QHS RF: 0 sevelamer carbonate [Renvela] 800 mg tablet 800 mg PO TID RF: 0 acetylcysteine [NAC] 600 mg capsule 600 mg PO BID RF: 0 acetaminophen [Acetaminophen Extra Strength] 500 mg tablet 1,000 mg PO BID PRN (Reason: fever or pain) RF: 0 omeprazole 40 mg capsule,delayed release(DR/EC) 40 mg PO DAILY Qty: 90 RF: 1 (DME) Blood Glucose Test strip See Dose Instructions .ROUTE .MEDSUPPLY Qty: 300 RF: 3 (DME) Adult Briefs - Large misc See Dose Instructions .ROUTE .MEDSUPPLY Qty: 150 RF: 12 lamotrigine 100 mg tablet 100 mg PO BID RF: 0 lorazepam 1 mg tablet 1 mg PO HS RF: 0 benztropine 0.5 mg tablet 0.5 mg PO HS RF: 0 multivitamin [Daily Multi-Vitamin] Tablet 1 tab PO DAILY Qty: 90 RF: 3 cyanocobalamin (vitamin B-12) [Vitamin B-12] 500 mcg tablet 500 mcg PO DAILY RF: 0 torsemide 20 mg tablet 40 mg PO DAILY RF: 0 nystatin 100,000 unit/gram powder 1 applic topical BID Qty: 60 RF: 1 aspirin [Adult Aspirin Regimen] 81 mg tablet,delayed release (DR/EC) 81 mg PO DAILY Qty: 90 RF: 3 acetylcysteine [NAC] 600 mg capsule 600 mg PO .COMPLEX RF: 0 Vraylar 1.5 mg capsule 1.5 mg PO DAILY RF: 0 insulin aspart U-100 [Novolog Flexpen U-100 Insulin] 100 unit/mL (3 mL) insulin pen See Rx Instructions subcut AC Qty: 15 RF: 3 (DME) pen needle, diabetic 31 gauge x 1/3 needle 1 ea Miscellaneous QID Qty: 100 RF: 3 atorvastatin 40 mg tablet 40 mg PO DAILY Qty: 90 RF: 3 amlodipine 10 mg tablet 10 mg PO DAILY Qty: 90 RF: 3 calcium carbonate [Tums Freshers] 200 mg calcium (500 mg) tablet,chewable 200 mg PO DAILY PRNRF: 0 carvedilol 6.25 mg tablet 6.25 mg PO BID RF: 0 Eliquis 5 mg tablet 2.5 mg PO BID Qty: 180 RF: 3 fosinopril 40 mg tablet 40 mg PO DAILY Qty: 90 RF: 3 Discharge Data Discharge Date/Time-TO BE ENTERED AT DEPARTURE: 05/23/21 11:18 Medical Decision Making Vianca Crews is a 60-year-old woman with history of end-stage renal disease on dialysis, hypertension, sinus bradycardia status post pacemaker, hyperlipidemia, insulin-dependent diabetes presenting to emergency department with right-sided chest pain and shortness of breath. Initially hypoxic and tachycardic, this vital signs normalized with nonrebreather initially and then nasal cannula, patient on 3 L nasal cannula with O2 sat 94%, heart rate 70, blood pressure 200/85. Patient is afebrile. On exam patient initially quite tachypneic, RR improved with oxygen to 22. Bedside POCUS shows B-lines throughout bilaterally, left pleural effusion, small pericardial effusion, IVC not variable with respiration, appears plethoric. EKG obtained, shows sinus rhythm at 68. Concern for CHF secondary to hypertension/volume overload, pneumothorax, pneumonia, acute coronary syndrome, pulmonary embolism, metabolic/lyte derangement, other. Exam/history at this time is not consistent with acute emergent intra-abdominal process, acute aortic pathology, cardiac tamponade, life-threatening hyp erkalemia. Plan for IV placement, telemetry, screening labs, x-ray, IV Lasix (patient does continue to make urine and is currently on torsemide), IV nitroglycerin. Will monitor and reassess. 8:50 Contacted [facility] [place] in anticipation of need for transfer for pulmonary edema/volume overload in setting of scheduled dialysis today. Labs reviewed, hemoglobin 9.7, D-dimer 3360, lactate 0.5, potassium 5.8, troponin daily, BNP greater than 35,000 (last value in system 1000), D-dimer 3360. Patient feeling improved on nitroglycerin infusion at this time, respiratory rate 17, 94% on 3LNC, blood pressure 176/75 on 50 ?g/min nitroglycerin. Patient denying any pain. Given overall clinical picture, doubt acute life-threatening pulmonary embolism, will hold on CT chest at this time as patient does not feel comfortable lying flat. 0931: Updated [facility] [place] with patient labs and current status, they state that they are unsure whether they will have capacity to accept this pat ient, awaiting callback. 1014: ED to ED transfer accepted, accepting physician Dr. Chatman. Blood pressure 163/79 on 50 ?g/min nitroglycerin, O2 sat 98% on 3 L nasal cannula. Patient given 1000 mg Tylenol for headache, likely secondary to nitroglycerin. Nitroglycerin infusion increased to 75 ?g/min for SBP 175. Patient had episode of watery diarrhea in ED, which she reports has been occurring for the past few days. Patient left the ED with medics for transport to [facility] without further incident. Medical Records Medical records reviewed: Yes I reviewed the patient's medical records. Imaging Data Radiologic Study: Attestation: I personally reviewed and interpreted this imaging study as follows: Radiologist's impression: EXAM: XR PORTABLE CHEST AP CLINICAL HISTORY: SOB TECHNIQUE: 2D digital imaging was performed. COMPARISON: CR,XR XR PORTABLE CHEST AP from 07/17/[address] RENAL COLIC WO from 04/09/2020 FINDINGS: There are bilateral pleural effusions, left moderate and small right. Pacemaker is noted. The cardiac silhouette is mostly obscured by the effusions. There is apparent pulmonary edema seen greater in the right lung. IMPRESSION: Bilateral pleural effusions, left greater than right. Pulmonary edema. Lab Data Lab results reviewed: Yes I reviewed the patient's lab results. Labs: Laboratory Tests Range/Units 05/23/21 05/23/21 05/23/21 08:30 08:30 08:30 WBC (4.4-10.8) 10^3/uL 9.68 RBC (3.93-5.22) 10^6/uL 2.99 L Hgb (11.2-15.7) g/dL 9.7 L Hct (36.0-46.0) % 31.1 L MCV (80-95) fL 104.0 H MCH (27.0-33.0) pg 32.4 MCHC (32.0-36.0) % 31.2 L RDW (11.7-14.6) % 13.5 Plt Count (130-400) 10^3/uL 162 MPV (8.0-11.0) fL 9.3 Immature Gran % 0.6 Neutrophils % 91.7 Lymphocytes % 3.9 Monocytes % 3.0 Eosinophils % 0.4 Basophils % 0.4 Nucleated RBC % % 0 Absolute Neutrophils (1.2-6.7) 10^3/uL 8.87 H Absolute Lymphocytes (1.2-3.4) 10^3/uL 0.38 L Absolute Monocytes (0.1-0.8) 10^3/uL 0.29 Absolute Eosinophils (0.0-0.7) 10^3/uL 0.04 Absolute Basophils (0.0-0.2) 10^3/uL 0.04 D-Dimer (<500) ng/mlFEU 3360 H VBG Lactate (0.6-1.4) mmol/L Sodium (136-145) mmol/L 137 Potassium (3.5-5.1) mmol/L 5.8 H Chloride (98-107) mmol/L 98 Carbon Dioxide (21.0-32.0) mmol/L 27.5 Anion Gap (3-11) mmol/L 11.5 H BUN (7-18) mg/dL 85 H* Creatinine (0.55-1.02) mg/dL 7.3 H* Estimated GFR/1.73 m2 (mL/min/1.73m2) 5.72 Glucose (74-106) mg/dL 122 H Calcium (8.5-10.1) mg/dL 9.0 Magnesium (1.8-2.4) mg/dL 2.5 H Total Bilirubin (0.2-1.0) mg/dL 0.6 AST (15-37) U/L 18 ALT (14-59) U/L 22 Alkaline Phosphatase (46-116) U/L 158 H Troponin I (<or=60) ng/L 60 NT-Pro-B Natriuret Pep (<300) pg/mL > 54751 H Total Protein (6.4-8.2) g/dL 7.4 Albumin (3.4-5.0) g/dL 3.9 Lipase (73-393) U/L 38 COVID-19 Source SARS-CoV-2 (PCR) (Negative) Range/Units 05/23/21 05/23/21 05/23/21 08:30 08:40 11:26 WBC (4.4-10.8) 10^3/uL RBC (3.93-5.22) 10^6/uL Hgb (11.2-15.7) g/dL Hct (36.0-46.0) % MCV (80-95) fL MCH (27.0-33.0) pg MCHC (32.0-36.0) % RDW (11.7-14.6) % Plt Count (130-400) 10^3/uL MPV (8.0-11.0) fL Immature Gran % Neutrophils % Lymphocytes % Monocytes % Eosinophils % Basophils % Nucleated RBC % % Absolute Neutrophils (1.2-6.7) 10^3/uL Absolute Lymphocytes (1.2-3.4) 10^3/uL Absolute Monocytes (0.1-0.8) 10^3/uL Absolute Eosinophils (0.0-0.7) 10^3/uL Absolute Basophils (0.0-0.2) 10^3/uL D-Dimer (<500) ng/mlFEU VBG Lactate (0.6-1.4) mmol/L 0.5 L Sodium (136-145) mmol/L Potassium (3.5-5.1) mmol/L Chloride (98-107) mmol/L Carbon Dioxide (21.0-32.0) mmol/L Anion Gap (3-11) mmol/L BUN (7-18) mg/dL Creatinine (0.55-1.02) mg/dL Estimated GFR/1.73 m2 (mL/min/1.73m2) Glucose (74-106) mg/dL Calcium (8.5-10.1) mg/dL Magnesium (1.8-2.4) mg/dL Total Bilirubin (0.2-1.0) mg/dL AST (15-37) U/L ALT (14-59) U/L Alkaline Phosphatase (46-116) U/L Troponin I (<or=60) ng/L Cancelled NT-Pro-B Natriuret Pep (<300) pg/mL Total Protein (6.4-8.2) g/dL Albumin (3.4-5.0) g/dL Lipase (73-393) U/L COVID-19 Source Nasal/Nares SARS-CoV-2 (PCR) (Negative) Negative ECG Data Attestation: I personally reviewed and interpreted this ECG (s) as follows: Interpretation: EKG shows sinus rhythm at 68, borderline left axis, Q waves V1 through V3, artifact present V6, no STEMI, nondiagnostic EKG HPI General Mode of arrival: wheelchair . Date/Time Provider Initiated Documentation: 05/23/21 08:03 . Limitations to Documentation: no limitations . Information obtained by: patient, RN notes reviewed and old records reviewed . HPI Narrative: Vianca Crews is a 60-year-old woman with history of end-stage renal disease on dialysis, hypertension, sinus bradycardia status post pacemaker, hyperlipidemia, insulin-dependent diabetes presenting to emergency department with right-sided chest pain and shortness of breath. Patient reports that right-sided chest pain began at some point yesterday. She reports it is located in her lower anterior chest under her right breast. Denies any other pain. She reports that this morning she began to feel significantly short of breath, and reports that she has not felt this short of breath in the past. Patient reports that she does continue to make urine. Patient reports that she got dialysis Sunday of last week as usual. Patient states that she has had diarrhea today. She denies vomiting. Denies fever, cough, focal weakness, numbness, rash. Has been eating and drinking as usual. Related Data Home Medications Medication Instructions Recorded Confirmed blood sugar diagnostic #300 each 05/06/18 05/23/21 lamotrigine 100 mg tablet 100 mg PO BID tab 05/09/18 05/23/21 lorazepam 1 mg tablet 1 mg PO HS 05/09/18 05/23/21 diaper,brief,adult,disposable #150 each 07/25/18 05/23/21 benztropine 0.5 mg tablet 0.5 mg PO HS tab 03/06/19 05/23/21 multivitamin 1 tab PO DAILY #90 tab 05/15/19 05/23/21 cyanocobalamin (vitamin B-12) 500 500 mcg PO DAILY 08/05/19 05/23/21 mcg tablet torsemide 20 mg tablet 40 mg PO DAILY tab 08/08/19 05/23/21 nystatin 100,000 unit/gram topical 1 applic TOPICAL BID #60 g 02/04/20 05/23/21 powder acetylcysteine 600 mg capsule 600 mg PO BID 02/11/20 05/23/21 mirtazapine 15 mg tablet 15 mg PO QHS 02/11/20 05/23/21 sevelamer carbonate 800 mg tablet 800 mg PO TID 02/11/20 05/23/21 acetaminophen 500 mg tablet 1,000 mg PO BID PRN tab 07/06/20 05/23/21 aspirin 81 mg tablet,delayed 81 mg PO DAILY #90 tab 08/23/20 05/23/21 release acetylcysteine 600 mg capsule 600 mg PO .COMPLEX 08/25/20 05/23/21 cariprazine 1.5 mg capsule 1.5 mg PO DAILY cap 10/27/20 05/23/21 insulin aspart U-100 100 unit/mL See Rx Instructions SUBCUT AC #15 12/16/20 05/23/21 (3 mL) subcutaneous pen ml omeprazole 40 mg capsule,delayed 40 mg PO DAILY #90 cap 01/13/21 05/23/21 release pen needle, diabetic 31 gauge x #100 each 02/17/21 05/23/21 1/3 atorvastatin 40 mg tablet 40 mg PO DAILY #90 tab 02/28/21 05/23/21 amlodipine 10 mg tablet 10 mg PO DAILY #90 tab 03/07/21 05/23/21 calcium carbonate 200 mg calcium 200 mg PO DAILY PRN tab 03/18/21 05/23/21 (500 mg) chewable tablet carvedilol 6.25 mg tablet 6.25 mg PO BID 03/18/21 05/23/21 apixaban 5 mg tablet 2.5 mg PO BID #180 tab 05/05/21 05/23/21 fosinopril 40 mg tablet 40 mg PO DAILY #90 tab 05/16/21 05/23/21 Previous Rx's Medication Instructions Recorded blood sugar diagnostic #300 each 05/06/18 diaper,brief,adult,disposable #150 each 07/25/18 multivitamin 1 tab PO DAILY #90 tab 05/15/19 nystatin 100,000 unit/gram topical 1 applic TOPICAL BID #60 g 02/04/20 powder aspirin 81 mg tablet,delayed 81 mg PO DAILY #90 tab 08/23/20 release insulin aspart U-100 100 unit/mL See Rx Instructions SUBCUT AC #15 12/16/20 (3 mL) subcutaneous pen ml omeprazole 40 mg capsule,delayed 40 mg PO DAILY #90 cap 01/13/21 release pen needle, diabetic 31 gauge x #100 each 02/17/21 1/ atorvastatin 40 mg tablet 40 mg PO DAILY #90 tab 02/28/21 amlodipine 10 mg tablet 10 mg PO DAILY #90 tab 03/07/21 apixaban 5 mg tablet 2.5 mg PO BID #180 tab 05/05/21 fosinopril 40 mg tablet 40 mg PO DAILY #90 tab 05/16/21 Allergies Allergy/AdvReac Type Severity Reaction Status Date / Time aripiprazole [From Abilify] Allergy Severe Verified 05/23/21 09:03 duloxetine HCl Allergy Severe Hives Verified 05/23/21 09:03 [From Cymbalta] oxycodone Allergy Severe Hives Verified 05/23/21 09:03 Sulfa (Sulfonamide Allergy Severe Skin Rash Verified 05/23/21 09:03 Antibiotics) amitriptyline Allergy Intermediate Verified 05/23/21 09:03 citalopram Allergy Intermediate HIVES Verified 05/23/21 09:03 fesoterodine Allergy Intermediate HIVES Verified 05/23/21 09:03 latex Allergy Intermediate Hives Verified 05/23/21 09:03 rabies vaccine, human Allergy Intermediate Verified 05/23/21 09:03 diploid cell [Rabies Vaccine,Human Diploid] Tetanus Vaccines and Toxoid Allergy Intermediate Swelling/Ed Verified 05/23/21 09:03 [Tetanus Vaccines & Toxoid] ghulam acetaminophen [From Vicodin] Allergy Unknown Verified 05/23/21 09:03 bupropion HCl Allergy Unknown Verified 05/23/21 09:03 [From Wellbutrin] celecoxib [From Celebrex] Allergy Unknown Verified 05/23/21 09:03 diazepam [From Valium] Allergy Unknown Verified 05/23/21 09:03 divalproex sodium Allergy Unknown Verified 05/23/21 09:03 [From Depakote] escitalopram oxalate Allergy Unknown Verified 05/23/21 09:03 [From Lexapro] fluoxetine HCl [From Prozac] Allergy Unknown Verified 05/23/21 09:03 fosphenytoin sodium Allergy Unknown Verified 05/23/21 09:03 [From Cerebyx] hydrocodone bitartrate Allergy Unknown Verified 05/23/21 09:03 [From Vicodin] morphine Allergy Unknown Verified 05/23/21 09:03 nicotine [From Nicoderm CQ] Allergy Unknown rash/hives Verified 05/23/21 09:03 paroxetine HCl [From Paxil] Allergy Unknown Verified 05/23/21 09:03 phenytoin sodium Allergy Unknown Verified 05/23/21 09:03 [From Dilantin] phenytoin sodium extended Allergy Unknown Verified 05/23/21 09:03 [From Dilantin] prednisone Allergy Unknown Verified 05/23/21 09:03 procaine HCl [From Novocain] Allergy Unknown Verified 05/23/21 09:03 quetiapine Allergy Unknown Verified 05/23/21 09:03 quetiapine fumarate Allergy Unknown Verified 05/23/21 09:03 [From Seroquel] risperidone [From Risperdal] Allergy Unknown Verified 05/23/21 09:03 sertraline Allergy Unknown Hives Verified 05/23/21 09:03 trazodone Allergy Unknown Verified 05/23/21 09:03 venlafaxine HCl Allergy Unknown Verified 05/23/21 09:03 [From Effexor] warfarin [From Coumadin] Allergy none Verified 05/23/21 09:03 listed on referral thiothixene [Thiothixene] AdvReac Severe Nausea Verified 05/23/21 09:03 topiramate AdvReac Intermediate Nausea Verified 05/23/21 09:03 gabapentin AdvReac Unknown Severe Verified 05/23/21 09:03 dizziness, runs; vomiting lidocaine AdvReac Unknown Nausea Verified 05/23/21 09:03 ibuprofen AdvReac headache Verified 05/23/21 09:03 and nausea melatonin AdvReac nightmares Verified 05/23/21 09:03 varenicline tartrate AdvReac Psychosis Verified 05/23/21 09:03 [From Chantix] ABSOLUTE CONTRAINDICATION AdvReac Severe Headache Uncoded 05/23/21 09:03 FOR MRI (disconnected RV pacer lead) general anesthia AdvReac Unknown Uncoded 05/23/21 09:03 General Stated Complaint: SOB ASIM: 2 Review of Systems Narrative: Constitutional: denies fevers Eyes: denies eye pain ENT: denies ear pain, dental pain, sore throat Cardiovascular: Reports anterior right-sided chest pain Respiratory: denies cough, reports shortness of breath GI: denies abdominal pain, vomiting, reports diarrhea : denies flank pain MSK: denies back pain, neck pain, arthralgias, myalgias Skin: denies rash Neuro: denies headaches, numbness, weakness PFSH All Active Problems (Updated 05/23/21 @ 11:56 by Shireen Long MD) Pulmonary edema (Acute) Hypertension (Chronic) 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 (Acute) Diarrhea (Acute) Nausea & vomiting (Acute) Depression (Chronic) End stage renal disease (Acute) 07/21/20 [facility] [place] Hemodialysis patient (Acute) Papanicolaou smear declined (Acute) Colon cancer screening declined (Acute) Mammogram declined (Acute) Discoloration and thickening of nails both feet (Acute) Hemodialysis patient (Acute) Sinusitis (Acute) Tobacco use disorder (Chronic) Hypertension (Chronic ~06/20/19) Goal <130/80 [facility] CKD (chronic kidney disease) stage 4, GFR 15-29 ml/min (Acute ~06/20/19) GFR approx 20 absent rgt kidney, uncontrolled DM , left renal cortical scarring per [facility] 06/19/19 and 07/2019 Determined kidney biopsy not necessary. Dysuria (Acute) Memory deficit (Acute) Solitary left kidney (Acute) Decreased GFR (Acute) Viral syndrome (Acute) Bilateral leg edema (Acute) Colonoscopy refused (Acute) Seizure (Acute) Urinary incontinence (Acute 02/11/15) Urge incontinence (Chronic) Elevated cholesterol (Chronic) Fracture of radial neck, left, closed (Acute) H/O endarterectomy (Chronic) Non-adherence to medical treatment (Acute) Type 2 diabetes mellitus (Chronic) Sinus bradycardia (Chronic) S/p pacemaker. Generator change 12/2013 [facility] [place] (Yariel MCL[facility]HLIN). Pocket revision & new RV lead 10/2014 [facility] [place]. Postmenopausal (Chronic) LMP ~2004 Bipolar 1 disorder (Chronic) Paranoia (Chronic 12/19/16) Pacemaker (Chronic 10/22/14) for bradycardia and sinus node dysfunction DDD pacer 2004 in [place] Medtronic dual lead programmed VVI - PG replaced 01/01/2014 [facility] [place] Old RV lead abandoned PTSD (post-traumatic stress disorder) (Chronic 05/28/17) PAD (peripheral artery disease) (Chronic 08/13/17) Meralgia paresthetica, right lower limb (Chronic 11/05/15) Dr. 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 Congenital single kidney (Chronic 03/08/15) by xray from [facility] 03/17/09 in scanned records Adult BMI > 30 (Chronic 06/07/15) Stroke (Chronic) R parietal; asymptomatic; Medical History Sinus node dysfunction (10/22/14) Surgical History aortobifemoral bypass (09/07/17) [facility] [place]. August 2017 section (~1985) Pacemaker (~2004) [place] S/P angioplasty (01/30/18) left femoral endarterectomy and patch angioplasty, Aortogram, Over the wire Left ABF graft thrombectomy, Open ledt ABF thrombectomy, left ABF graft stent (VBX 8x39) S/P aortobifemoral bypass surgery Family History Mother No problems noted. Father No problems noted. Sister No problems noted. Social History Smoking/Tobacco Use Status: Former Tobacco Use Quit Date: 03/03/21 Pack-years: 36 Smoking risk assessment performed?: Yes Alcohol Intake: never Drug use: Never Substance use type: does not use Adopted: No Number of Children: 1 Do you need help understanding health information?: Always current occupation: disabliilty What type of physical activity do you participate in: walking Duration: 15-30 minutes/day Frequency: 3-4 times per week Do you feel safe at home: Yes Do you feel safe in your relationship?: Yes Exam Narrative Exam Narrative: Constitutional: Ill-appearing, tachypneic, able to speak in full sentences HENT: head atraumatic/normocephalic/normal inspection, mucous membranes moist Eyes: conjunctiva normal, sclera normal, pupils 3mm b/l Neck: no stridor, normal ROM, trachea midline Chest: normal inspection Resp: Increased work of breathing, scattered faint wheeze and rales throughout Cardio: Tachycardic rate, normal rhythm GI: abdomen soft, non-tender, non-distended Back: normal inspection, no rash Skin: warm, dry, normal color, no rash Neuro: alert, not altered, grossly non-focal, normal tone Ext: trace pedal edema, no posterior calf tenderness to palpation Psych: normal mood, normal affect, normal behavior Course Vital Signs Vital signs: Vital Signs Temperature 36.3 C L 05/23/21 08:16 Pulse 133 H 05/23/21 08:16 Respiratory Rate 22 05/23/21 08:16 Blood Pressure 147/108 H 05/23/21 08:16 Pulse Oximetry 100 05/23/21 08:16 Temperature 36.3 C L 05/23/21 08:16 Temperature Source Skin 05/23/21 08:16 Pulse 133 H 05/23/21 08:16 Respiratory Rate 22 05/23/21 08:16 Blood Pressure 147/108 H 05/23/21 08:16 Blood Pressure Position Sitting 05/23/21 08:16 Pulse Oximetry 100 05/23/21 08:16 Oxygen Delivery Method Non-Rebreather 05/23/21 08:16 Oxygen Flow Rate 15 05/23/21 08:16 Critical Care Time Critical Care Time Critical Care Time: Yes Total Critical Care Time: 45 Attestation: I have spent greater than 45 minutes of critical care time with this critically ill patient including frequent bedside reassessments, management of infusions, and discussions with consultants and caregiver.
[2021-05-23 08:42] LABS: Lactate 0.5 mmol/L (0.6-1.4)
[2021-05-23 08:43] LABS: Abs Immature Grans 0.06 10^3/uL (0.0-0.06); Absolute Basophil Count 0.04 10^3/uL (0.0-0.2); Absolute Eosinophil Count 0.04 10^3/uL (0.0-0.7); Absolute Lymphocyte Count 0.38 10^3/uL (1.2-3.4); Absolute Monocyte Count 0.29 10^3/uL (0.1-0.8); Absolute Neutrophil Count 8.87 10^3/uL (1.2-6.7); Basophils % 0.4; Eosinophils % 0.4; HCT 31.1 % (36.0-46.0); HGB 9.7 g/dL (11.2-15.7); Immature Grans % 0.6; Lymphocytes % 3.9; MCH 32.4 pg (27.0-33.0); MCHC 31.2 % (32.0-36.0); MPV 9.3 fL (8.0-11.0); Neutrophils % 91.7; Nucleated RBC 0 %; Platelet Count 162 10^3/uL (130-400); RBC 2.99 10^6/uL (3.93-5.22); RDW 13.5 % (11.7-14.6); RDW-SD 51.9 fL; WBC 9.68 10^3/uL (4.4-10.8)
[2021-05-23 08:45] LABS: Source Nasal/Nares
[2021-05-23] MEDS: Furosemide 40 MG/4 ML VIAL IVP (08:57)
[2021-05-23] MEDS: Normal Saline Flush 10 ML SYR IVP (08:57)
--- NOTE | 2021-05-23 09:01 | NUR.NOTE ---
Permission per patient verbally to give information to Sam Aiken her home care provider. Vesna Ash Note:
[2021-05-23] MEDS: nitroGLYcerin in D5W 50 MG/250 ML BTL 15 MG IV (09:17)
[2021-05-23 09:22] LABS: ALT 22 U/L (14-59); AST 18 U/L (15-37); Albumin 3.9 g/dL (3.4-5.0); Alkaline Phosphatase 158 U/L (46-116); Anion Gap 11.5 mmol/L (3-11); Bilirubin, Total 0.6 mg/dL (0.2-1.0); CO2 27.5 mmol/L (21.0-32.0); Chloride 98 mmol/L (98-107); D-Dimer 3360 ng/mlFEU (<500); Estimated GFR 5.72 (mL/min/1.73m2); Glucose 122 mg/dL (74-106); Lipase 38 U/L (73-393); Magnesium 2.5 mg/dL (1.8-2.4); Potassium 5.8 mmol/L (3.5-5.1); Sodium 137 mmol/L (136-145); Total Protein 7.4 g/dL (6.4-8.2); Troponin I 60 ng/L (<or=60)
[2021-05-23 09:24] LABS: COVID-19 PCR Negative (Negative)
[2021-05-23 09:25] LABS: NT-proBNP > 35000 pg/mL (<300)
[2021-05-23 09:26] LABS: BUN 85 mg/dL (7-18); CREATININE 7.3 mg/dL (0.55-1.02)
--- NOTE | 2021-05-23 10:00 | RESPIRATORY ---
10:00 RT asked to initiate bipap. Pt placed on Faiza CPAP 5, PS 5. Pt unable to tolerate past 3 minutes. Pt states she has anxiety disorder and PTSD that are contributing to her intolerance.
[2021-05-23] MEDS: Acetaminophen 500 MG TAB 1000 MG PO (10:21)
== END 2021-05-23 11:18 | disposition short-term general hospital (02) ==
PROVIDERS: Emergency Provider Student in an Organized Health Care Education/Training Program; PCP Nurse Practitioner
DX: J81.0 Acute pulmonary edema (principal); I12.0 Hypertensive chronic kidney disease with stage 5 chronic kidney disease or end stage renal disease; E11.22 Type 2 diabetes mellitus with diabetic chronic kidney disease; N18.6 End stage renal disease; Z99.2 Dependence on renal dialysis; Z79.4 Long term (current) use of insulin; R06.02 Shortness of breath; R51.9 Headache, unspecified; R19.7 Diarrhea, unspecified
CPT/HCPCS: 36415; 36416; 80053; 82962; 83690; 87635; 93005; 96365; 96366; 96375; 96376; 99291; 71045; 83605; 83735; 83880; 84484; 85025; 85379; 93010; J1940

== ENCOUNTER 2021-08-02 10:13 | Outpatient (CLI) | payer MEDICARE, MEDICAID, SELFPAY ==
--- NOTE | 2021-08-02 10:00 | RT.EKG_ITS ---
APPROVED REPORT Exam: Resting ECG Reason for Exam: chest pain Patient Location: O HR:62 bpm ECG Measurements Heart Rate 62 AXIS AZ 181 P 55 QRSd 112 QRS -28 QT 433 T 62 QTc 440 Conclusion Sinus rhythm...normal P axis, V-rate 60- 99 Probable left atrial enlargement...P >50mS, <-0.10mV V1 LAFB Poor R wave progression, cannot exclude old anterior infarct
== END 2021-08-02 10:14 | disposition home or self-care (01) ==
LOC: DI.KIM 10:13
PROVIDERS: PCP Nurse Practitioner; Visit Provider Nurse Practitioner
DX: R07.9 Chest pain, unspecified (principal)
CPT/HCPCS: 93010

== ENCOUNTER 2021-08-02 10:45 | Outpatient (REF) | payer MEDICARE, MEDICAID, SELFPAY | END 2021-08-02 10:46 | disposition home or self-care (01) | LOC: LBN 10:45 | PROVIDERS: PCP Nurse Practitioner; Visit Provider Nurse Practitioner ==

== ENCOUNTER → 2021-08-18 09:28 | Outpatient (BNVA) | payer MEDICARE, MEDICAID, SELFPAY | PROVIDERS: PCP Nurse Practitioner; Referring Provider Nurse Practitioner; Visit Provider Internal Medicine Cardiovascular Disease | DX: R00.1 Bradycardia, unspecified (principal); I12.9 Hypertensive chronic kidney disease with stage 1 through stage 4 chronic kidney disease, or unspecified chronic kidney disease; N18.6 End stage renal disease; I73.9 Peripheral vascular disease, unspecified | CPT/HCPCS: 99213 ==

== ENCOUNTER → 2021-10-05 10:00 | Outpatient (BNVA) | payer MEDICARE, MEDICAID, SELFPAY | PROVIDERS: PCP Nurse Practitioner; Referring Provider Nurse Practitioner; Visit Provider Physician Assistant | DX: R00.1 Bradycardia, unspecified (principal); Z99.2 Dependence on renal dialysis; Z95.0 Presence of cardiac pacemaker | CPT/HCPCS: 93279 ==

== ENCOUNTER 2021-11-01 02:45 | Outpatient (CLI) | payer MEDICARE, MEDICAID, SELFPAY ==
[2021-11-01 10:23] LABS: HCT 35.5 % (36.0-46.0); HGB 11.7 g/dL (11.2-15.7); MCH 32.7 pg (27.0-33.0); MCV 99 fL (80-95); MPV 9.4 fL (8.0-11.0); Platelet Count 172 10^3/uL (130-400); RBC 3.58 10^6/uL (3.93-5.22); RDW 14.4 % (11.7-14.6); RDW-SD 51.8 fL; WBC 4.94 10^3/uL (4.4-10.8)
[2021-11-01 11:15] LABS: ALT 24 U/L (14-59); AST 16 U/L (15-37); Albumin 3.7 g/dL (3.4-5.0); Alkaline Phosphatase 136 U/L (46-116); Anion Gap 12.2 mmol/L (3-11); BUN 53 mg/dL (7-18); Bilirubin, Total 0.6 mg/dL (0.2-1.0); CO2 33.8 mmol/L (21.0-32.0); Calcium 8.6 mg/dL (8.5-10.1); Calculated LDL 81 mg/dL (<100); Chloride 88 mmol/L (98-107); Cholesterol 146 mg/dL (<200); Estimated GFR 6.76 (mL/min/1.73m2); Glucose 75 mg/dL (74-106); HDL Cholesterol 49 mg/dL (40-60); Potassium 4.9 mmol/L (3.5-5.1); Sodium 134 mmol/L (136-145); Total Protein 7.1 g/dL (6.4-8.2); Triglyceride 83 mg/dL (<150)
[2021-11-01 11:21] LABS: CREATININE 6.3 mg/dL (0.55-1.02)
== END 2021-11-01 02:46 | disposition home or self-care (01) ==
LOC: LBO 02:45
PROVIDERS: PCP Nurse Practitioner; Visit Provider Nurse Practitioner
DX: I10 Essential (primary) hypertension (principal); E11.42 Type 2 diabetes mellitus with diabetic polyneuropathy; E78.00 Pure hypercholesterolemia, unspecified; N18.4 Chronic kidney disease, stage 4 (severe); L03.032 Cellulitis of left toe
CPT/HCPCS: 36415; 80053; 80061; 85027

== ENCOUNTER 2021-12-18 17:02 | Emergency (ER) | payer MEDICARE, MEDICAID, SELFPAY ==
[2021-12-18] VITALS (20 sets, daily range): BP systolic 121–155; BP diastolic 47–142; PULSE 49–61; RESP 16–18; TEMP 36.1–36.6; O2SAT 94–100
--- NOTE | 2021-12-18 17:00 | DI.CT_ITS ---
Exam(s) CT HEAD WO EXAM: CT HEAD WO CLINICAL HISTORY: dizziness. TECHNIQUE: Imaging Protocol: Axial computed tomography images with coronal and sagittal reformatted images were created and reviewed COMPARISON: CT CT HEAD WO from 12/27/2017 FINDINGS: Ventricles and Extra axial spaces: Normal in size and morphology for the patient's age. Hemorrhage: None. Cerebral parenchyma: No acute territorial infarct. There are areas of decreased attenuation in the w allan matter likely reflecting small vessel ischemic disease. There is a stable right periventricular hypodensity likely reflecting an old infarct. Midline shift: None. Brainstem/Cerebellum: Normal. Calvarium: Normal. Visualized Paranasal sinuses/Mastoids: Clear. There is a small amount of debris in the right nasal ca vity. Soft Tissues: Unremarkable. IMPRESSION: No acute intracranial process. RADIATION DOSE DELIVERED: 666.29mGy.cm Total DLP DATA REPOSITORY: All CT scans at this facility are submitted to the National Radiology Data Registry (NRDR) Dose Index Registry (DIR) with the [employer] (A[employer]). RADIATION OPTIMIZATION: All CT scans at this facility use at least one of these dose optimization te chniques: automated exposure control; mA and/or kV adjustment per patient size (includes targeted exa ms where dose is matched to clinical indication); or iterative reconstruction.
--- NOTE | 2021-12-18 17:05 | DI.RAD_ITS ---
Exam(s) XR CHEST 1V IN DI DEPT EXAM: XR CHEST 1V IN DI DEPT CLINICAL HISTORY: dizziness TECHNIQUE: 2D digital imaging was performed of the chest. One image was obtained. An AP view was ob tained. COMPARISON: CR XR PORTABLE CHEST AP from 05/23/2021 FINDINGS: MEDIASTINUM: Normal. HEART: Normal. PULMONARY VASCULATURE: Normal. LUNGS: There are no focal consolidating infiltrates. The lungs are hyperinflated suggesting underlyi ng COPD. PLEURAL SPACE: No pleural effusion or pneumothorax. There is blunting of the left costophrenic angle which may represent scarring or tiny pleural effusion. BONE:Within normal limits for the patient's age. OTHER FINDINGS:The transvenous pacing wires are stable in position. There is again seen a stent in t he soft tissues of the right upper extremity. IMPRESSION: Blunting of the left costophrenic angle which may represent scarring or tiny pleural effusion. DATA REPOSITORY: RADIATION DOSE DELIVERED:
--- NOTE | 2021-12-18 17:10 | W.ED.GENAD ---
Discharge Plan Disposition Patient Disposition: HOME Condition: Stable Discharge Details Clinical Impression: Decreased responsiveness Primary Care Provider: Rosaura Fragoso ED Provider: Pernell Dennis Home Meds and New Rx's Prescriptions: Continued mirtazapine 15 mg tablet 15 mg PO QHS sevelamer carbonate [Renvela] 800 mg tablet 800 mg PO TID Rx Instructions: must administer with a meal/food acetylcysteine [NAC] 600 mg capsule 600 mg PO BID acetaminophen [Acetaminophen Extra Strength] 500 mg tablet 1,000 mg PO BID PRN (Reason: fever or pain) (DME) Blood Glucose Test strip See Dose Instructions .ROUTE .MEDSUPPLY Qty: 300 3RF Dose Instruction: As directed Rx Instructions: Test TID (DME) Adult Briefs - Large misc See Dose Instructions .ROUTE .MEDSUPPLY Qty: 150 12RF Dose Instruction: As directed Rx Instructions: Change as directed lamotrigine 100 mg tablet 100 mg PO BID Label Comments: Increased to bid at [place] d/c lorazepam 1 mg tablet 1 mg PO HS Label Comments: may also take 0.5mg once daily if needed. (reported progress note [facility] 05/02/18) benztropine 0.5 mg tablet 0.5 mg PO HS Rx Instructions: Note dated 02/13/19 [facility] multivitamin [Daily Multi-Vitamin] Tablet 1 tab PO DAILY Qty: 90 3RF cyanocobalamin (vitamin B-12) [Vitamin B-12] 500 mcg tablet 500 mcg PO DAILY torsemide 20 mg tablet 40 mg PO DAILY Rx Instructions: Increased from 20mg on 08/07/19, per [facility] nystatin 100,000 unit/gram powder 1 applic topical BID Qty: 60 1RF Rx Instructions: apply liberal amount to affected areas of rash to breasts until resolved acetylcysteine [NAC] 600 mg capsule 600 mg PO .COMPLEX Rx Instructions: 600 mg PO as directed; administer with a meal Vraylar 1.5 mg capsule 1.5 mg PO DAILY Rx Instructions: as of 10/27/20 w/ permission from Dr. Pedersen via Kathya Stanley [facility] insulin aspart U-100 [Novolog Flexpen U-100 Insulin] 100 unit/mL (3 mL) insulin pen See Rx Instructions subcut AC Qty: 15 3RF Rx Instructions: 2-10u based on sliding scale before meals. atorvastatin 40 mg tablet 40 mg PO DAILY Qty: 90 3RF calcium carbonate [Tums Freshers] 200 mg calcium (500 mg) tablet,chewable 200 mg PO DAILY PRN Rx Instructions: Discharge note 03/15/21 [facility] Eliquis 5 mg tablet 2.5 mg PO BID Qty: 180 3RF fosinopril 40 mg tablet 40 mg PO BID Rx Instructions: increased by [facility] 05/26/21 amlodipine 10 mg tablet 10 mg PO DAILY Qty: 90 3RF aspirin [Adult Aspirin Regimen] 81 mg tablet,delayed release (DR/EC) 81 mg PO DAILY Qty: 90 3RF omeprazole 40 mg capsule,delayed release(DR/EC) 40 mg PO DAILY Qty: 90 3RF (DME) pen needle, diabetic 31 gauge x 1/3 needle 1 ea Miscellaneous QID Qty: 100 3RF Rx Instructions: BD Ultrafine Vane 4mm/32G For DM E11.65 A1C<7 manage freq. hyperglycemic episodes carvedilol [Coreg] 12.5 mg tablet 12.5 mg PO BID Qty: 180 3RF Rx Instructions: must administer with a meal/food Increased by [facility] 05/26/21 insulin glargine [Basaglar KwikPen U-100 Insulin] 100 unit/mL (3 mL) insulin pen 23 unit subcut QAM Qty: 15 5RF Discharge Instructions Additional Instructions: your blood work and imaging results did not show new or worrisome findings follow up with your primary care provider and dermatology nurse practitioner within a week if you feel more ill, have severe pain or difficulty breathing return to the emergency department Medical Decision Making <Wilner Dykes MD - Last Filed: 12/18/21 20:07> 61-year-old female history of CKD on hemodialysis Sunday, remote seizure disorder, diabetes, presents brought in for decreased responsiveness family had a hard time arousing her from a nap eventually was arousable when EMS arrived, fingerstick in the 180s, denies chest pain or shortness of breath denies headache nausea or vomiting. Does endorse some world spinning dizziness that is mild in nature. Cranial nerves II through XII intact, 5 out of 5 strength upper and lower extremities, no truncal ataxia, afebrile nontoxic, consider peripheral vertigo versus metabolic disorder such as electrolyte abnormality versus less likely infectious process lower suspicion for CVA or intracranial hemorrhage however given age and symptoms will obtain imaging CT head, labs EKG close reassessment trial of meclizine. Pending CT results for disposition. <Pernell Dennis MD - Last Filed: 12/18/21 20:38> 61-year-old female history of CKD on hemodialysis Sunday, remote seizure disorder, diabetes, presents brought in for decreased responsiveness family had a hard time arousing her from a nap eventually was arousable when EMS arrived, fingerstick in the 180s, denies chest pain or shortness of breath denies headache nausea or vomiting. Does endorse some world spinning dizziness that is mild in nature. Cranial nerves II through XII intact, 5 out of 5 strength upper and lower extremities, no truncal ataxia, afebrile nontoxic, consider peripheral vertigo versus metabolic disorder such as electrolyte abnormality versus less likely infectious process lower suspicion for CVA or intracranial hemorrhage however given age and symptoms will obtain imaging CT head, labs EKG close reassessment trial of meclizine. Pending CT results for disposition. imaging shows no acute findings, xray read as blunting of costophrenic angle, denies any cough or fevers so doubt pneumonia. She feels well and is asymptomatic now. Discussed results with her and she is stable for d/c and her and care attendant are comfortable with this plan. Return precautions given and advised to f/u with pcp HPI <Wilner Dykes MD - Last Filed: 12/18/21 20:07> General Date/Time Provider Initiated Documentation: 12/18/21 17:05. HPI Narrative: 61-year-old female history of CKD on dialysis Sunday, remote seizure disorder, found less responsive by family in bed this evening they had trouble waking up from a nap, patient was eventually arousable, fingerstick 180 in the field, patient endorses some dizziness described as a spinning sensation. Denies chest pain or shortness of breath. [place]. Denies history of brain bleed or stroke. Is on anticoagulation. Currently alert and oriented Related Data Home Medications Medication Instructions Recorded Confirmed blood sugar diagnostic (Blood #300 ea 05/06/18 10/25/21 Glucose Test strips) lamotrigine 100 mg tablet 100 mg PO BID 05/09/18 10/25/21 lorazepam 1 mg tablet 1 mg PO HS 05/09/18 10/25/21 diaper,brief,adult,disposable #150 ea 07/25/18 10/25/21 (Adult Briefs - Large) benztropine 0.5 mg tablet 0.5 mg PO HS 03/06/19 10/25/21 multivitamin (Daily Multi-Vitamin 1 tab PO DAILY #90 tabs 05/15/19 10/25/21 tablet) cyanocobalamin (vitamin B-12) 500 500 mcg PO DAILY 08/05/19 10/25/21 mcg tablet (Vitamin B-12) torsemide 20 mg tablet 40 mg PO DAILY 08/08/19 10/25/21 nystatin 100,000 unit/gram topical 1 applic topical BID #60 grams 02/04/20 10/25/21 powder acetylcysteine 600 mg capsule (NAC) 600 mg PO BID 02/11/20 10/25/21 mirtazapine 15 mg tablet 15 mg PO QHS 02/11/20 10/25/21 sevelamer carbonate 800 mg tablet 800 mg PO TID 02/11/20 10/25/21 (Renvela) acetaminophen 500 mg tablet 1,000 mg PO BID PRN fever or pain 07/06/20 10/25/21 (Acetaminophen Extra Strength) acetylcysteine 600 mg capsule (NAC) 600 mg PO .COMPLEX 08/25/20 10/25/21 cariprazine 1.5 mg capsule 1.5 mg PO DAILY 10/27/20 10/25/21 (Vraylar) insulin aspart U-100 100 unit/mL See Rx Instructions subcut AC #15 12/16/20 10/25/21 (3 mL) subcutaneous pen (Novolog mL Flexpen U-100 Insulin aspart) atorvastatin 40 mg tablet 40 mg PO DAILY #90 tabs 02/28/21 10/25/21 calcium carbonate 200 mg calcium 200 mg PO DAILY PRN 03/18/21 10/25/21 (500 mg) chewable tablet (Tums Freshers) apixaban 5 mg tablet (Eliquis) 2.5 mg PO BID Decreased to 2.5 BID 05/05/21 10/25/21 07/14/19 per heme recommendati #180 tabs fosinopril 40 mg tablet 40 mg PO BID 05/30/21 10/25/21 amlodipine 10 mg tablet 10 mg PO DAILY #90 tabs 06/16/21 10/25/21 aspirin 81 mg tablet,delayed 81 mg PO DAILY #90 tabs 07/11/21 10/25/21 release (Adult Aspirin Regimen) omeprazole 40 mg capsule,delayed 40 mg PO DAILY #90 caps 07/11/21 10/25/21 release pen needle, diabetic 31 gauge x #100 ea 07/18/21 10/25/2104/25 carvedilol 12.5 mg tablet (Coreg) 12.5 mg PO BID #180 tabs 09/08/21 10/25/21 insulin glargine 100 unit/mL (3 23 unit (0.23 mL) subcut QAM #15 mL 11/14/21 mL) subcutaneous pen (Basaglar KwikPen U-100 Insulin) Previous Rx's Medication Instructions Recorded blood sugar diagnostic (Blood #300 ea 05/06/18 Glucose Test strips) diaper,brief,adult,disposable #150 ea 07/25/18 (Adult Briefs - Large) multivitamin (Daily Multi-Vitamin 1 tab PO DAILY #90 tabs 05/15/19 tablet) nystatin 100,000 unit/gram topical 1 applic topical BID #60 grams 02/04/20 powder insulin aspart U-100 100 unit/mL See Rx Instructions subcut AC #15 12/16/20 (3 mL) subcutaneous pen (Novolog mL Flexpen U-100 Insulin aspart) atorvastatin 40 mg tablet 40 mg PO DAILY #90 tabs 02/28/21 apixaban 5 mg tablet (Eliquis) 2.5 mg PO BID Decreased to 2.5 BID 05/05/21 07/14/19 per heme recommendati #180 tabs amlodipine 10 mg tablet 10 mg PO DAILY #90 tabs 06/16/21 aspirin 81 mg tablet,delayed 81 mg PO DAILY #90 tabs 07/11/21 release (Adult Aspirin Regimen) omeprazole 40 mg capsule,delayed 40 mg PO DAILY #90 caps 07/11/21 release pen needle, diabetic 31 gauge x #100 ea 07/18/2104/25 carvedilol 12.5 mg tablet (Coreg) 12.5 mg PO BID #180 tabs 09/08/21 insulin glargine 100 unit/mL (3 23 unit (0.23 mL) subcut QAM #15 mL 11/14/21 mL) subcutaneous pen (Basaglar KwikPen U-100 Insulin) Allergies Allergy/AdvReac Type Severity Reaction Status Date / Time aripiprazole [From Abilify] Allergy Severe Verified 12/18/21 17:13 duloxetine HCl Allergy Severe Hives Verified 12/18/21 17:13 [From Cymbalta] oxycodone Allergy Severe Hives Verified 12/18/21 17:13 Sulfa (Sulfonamide Allergy Severe Skin Rash Verified 12/18/21 17:13 Antibiotics) amitriptyline Allergy Intermediate Verified 12/18/21 17:13 citalopram Allergy Intermediate HIVES Verified 12/18/21 17:13 fesoterodine Allergy Intermediate HIVES Verified 12/18/21 17:13 latex Allergy Intermediate Hives Verified 12/18/21 17:13 rabies vaccine, human Allergy Intermediate Verified 12/18/21 17:13 diploid cell [Rabies Vaccine,Human Diploid] Tetanus Vaccines and Toxoid Allergy Intermediate Swelling/Ed Verified 12/18/21 17:13 [Tetanus Vaccines & Toxoid] ghulam acetaminophen [From Vicodin] Allergy Unknown Verified 12/18/21 17:13 bupropion HCl Allergy Unknown Verified 12/18/21 17:13 [From Wellbutrin] celecoxib [From Celebrex] Allergy Unknown Verified 12/18/21 17:13 diazepam [From Valium] Allergy Unknown Verified 12/18/21 17:13 divalproex sodium Allergy Unknown Verified 12/18/21 17:13 [From Depakote] escitalopram oxalate Allergy Unknown Verified 12/18/21 17:13 [From Lexapro] fluoxetine HCl [From Prozac] Allergy Unknown Verified 12/18/21 17:13 fosphenytoin sodium Allergy Unknown Verified 12/18/21 17:13 [From Cerebyx] hydrocodone bitartrate Allergy Unknown Verified 12/18/21 17:13 [From Vicodin] morphine Allergy Unknown Verified 12/18/21 17:13 nicotine [From Nicoderm CQ] Allergy Unknown rash/hives Verified 12/18/21 17:13 paroxetine HCl [From Paxil] Allergy Unknown Verified 12/18/21 17:13 phenytoin sodium Allergy Unknown Verified 12/18/21 17:13 [From Dilantin] phenytoin sodium extended Allergy Unknown Verified 12/18/21 17:13 [From Dilantin] prednisone Allergy Unknown Verified 12/18/21 17:13 procaine HCl [From Novocain] Allergy Unknown Verified 12/18/21 17:13 quetiapine Allergy Unknown Verified 12/18/21 17:13 quetiapine fumarate Allergy Unknown Verified 12/18/21 17:13 [From Seroquel] risperidone [From Risperdal] Allergy Unknown Verified 12/18/21 17:13 sertraline Allergy Unknown Hives Verified 12/18/21 17:13 trazodone Allergy Unknown Verified 12/18/21 17:13 venlafaxine HCl Allergy Unknown Verified 12/18/21 17:13 [From Effexor] warfarin [From Coumadin] Allergy none Verified 12/18/21 17:13 listed on referral thiothixene [Thiothixene] AdvReac Severe Nausea Verified 12/18/21 17:13 topiramate AdvReac Intermediate Nausea Verified 12/18/21 17:13 gabapentin AdvReac Unknown Severe Verified 12/18/21 17:13 dizziness, runs; vomiting lidocaine AdvReac Unknown Nausea Verified 12/18/21 17:13 ibuprofen AdvReac headache Verified 12/18/21 17:13 and nausea melatonin AdvReac nightmares Verified 12/18/21 17:13 varenicline tartrate AdvReac Psychosis Verified 12/18/21 17:13 [From Chantix] ABSOLUTE CONTRAINDICATION AdvReac Severe Headache Uncoded 12/18/21 17:13 FOR MRI (disconnected RV pacer lead) general anesthia AdvReac Unknown Uncoded 12/18/21 17:13 General Stated Complaint: Dizzy/Sync ASIM: 2 Review of Systems <Wilner Dykes MD - Last Filed: 12/18/21 20:07> Narrative: Review of Systems Constitutional: negative Eyes: negative ENT: negative Cardiovascular: negative Respiratory: negative Gastrointestinal: negative : negative Musculoskeletal: negative Skin: negative Neurologic: Dizziness Psych: negative PFSH <Wilner Dykes MD - Last Filed: 12/18/21 20:07> All Active Problems (Updated 12/18/21 @ 20:37 by Pernell Dennis MD) Decreased responsiveness (Acute) Type 2 diabetes mellitus with diabetic polyneuropathy (Acute) 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 (Acute) Diarrhea (Acute) Nausea & vomiting (Acute) Depression (Chronic) End stage renal disease (Acute) 07/21/20 [facility] [place] patient (Acute) Papanicolaou smear declined (Acute) Colon cancer screening declined (Acute) Mammogram declined (Acute) Discoloration and thickening of nails both feet (Acute) Hemodialysis patient (Acute) Sinusitis (Acute) Tobacco use disorder (Chronic) Hypertension (Chronic ~06/20/19) Goal <130/80 [facility] CKD (chronic kidney disease) stage 4, GFR 15-29 ml/min (Acute ~06/20/19) GFR approx 20 absent rgt kidney, uncontrolled DM , left renal cortical scarring per [facility] 06/19/19 and 07/2019 Determined kidney biopsy not necessary. 11/15/21 Decision from Transplant Eval that pt is not a candidate for kidney transplant Dysuria (Acute) Memory deficit (Acute) Solitary left kidney (Acute) Decreased GFR (Acute) Viral syndrome (Acute) Bilateral leg edema (Acute) Colonoscopy refused (Acute) Seizure (Acute) Urinary incontinence (Acute 02/11/15) Urge incontinence (Chronic) Elevated cholesterol (Chronic) Fracture of radial neck, left, closed (Acute) H/O endarterectomy (Chronic) Non-adherence to medical treatment (Acute) Type 2 diabetes mellitus (Chronic) Sinus bradycardia (Chronic) S/p pacemaker. Generator change 12/2013 [facility] [place] ([place]). Pocket revision & new RV lead 10/2014 [facility] [place]. Postmenopausal (Chronic) LMP ~2004 Bipolar 1 disorder (Chronic) Paranoia (Chronic 12/19/16) Pacemaker (Chronic 10/22/14) for bradycardia and sinus node dysfunction DDD pacer 2004 in [place] Medtronic dual lead programmed VVI - PG replaced 01/01/2014 [facility] [place] Old RV lead abandoned PTSD (post-traumatic stress disorder) (Chronic 05/28/17) PAD (peripheral artery disease) (Chronic 08/13/17) Meralgia paresthetica, right lower limb (Chronic 11/05/15) Dr. 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 Congenital single kidney (Chronic 03/08/15) by xray from [facility] 03/17/09 in scanned records Adult BMI > 30 (Chronic 06/07/15) Stroke (Chronic) R parietal; asymptomatic; Medical History Sinus node dysfunction (10/22/14) Surgical History aortobifemoral bypass (09/07/17) [facility] vascular. August 2017 section (~1985) Pacemaker (~2004) Milian S/P angioplasty (01/30/18) left femoral endarterectomy and patch angioplasty, Aortogram, Over the wire Left ABF graft thrombectomy, Open ledt ABF thrombectomy, left ABF graft stent (VBX 8x39) S/P aortobifemoral bypass surgery Family History Mother No problems noted. Father No problems noted. Sister No problems noted. Social History Smoking/Tobacco Use Status: Former Tobacco Use Quit Date: 03/03/21 Pack-years: 37 Smoking risk assessment performed?: Yes Alcohol Intake: never Drug use: Never Substance use type: does not use Adopted: No Number of Children: 1 Do you need help understanding health information?: Always current occupation: disabliilty What type of physical activity do you participate in: walking Duration: 15-30 minutes/day Frequency: 3-4 times per week Do you feel safe at home: Yes Do you feel safe in your relationship?: Yes Exam <Wilner Dykes MD - Last Filed: 12/18/21 20:07> Narrative Exam Narrative: Physical Examination General: alert, awake, cooperative, resting comfortably, no acute distress HEENT: normocephalic, atraumatic; PERRL, EOM intact, conjunctiva normal; no nasal discharge; moist mucous membranes, oral and pharyngeal mucosa normal, tolerating secretions Neck: supple, trachea midline; full ROM Chest: normal to inspection Respiratory: normal respiratory effort, speaking in full sentences, clear to auscultation, no wheezing, rales or rhonchi Cardiac: regular rate, regular rhythm, S1S2 intact, no murmurs rubs or gallops GI: abdomen soft, non-tender, non-distended; no palpable mass or hepatosplenomegaly Skin: no lesions, rashes or trauma appreciated Neuro: AAOx3, normal speech, moving all extremities; 5 out of 5 strength upper and lower extremities, cranial nerves II through XII intact, no truncal ataxia Extremities: No peripheral edema Psych: Appropriate mood and affect Course <Wilner Dykes MD - Last Filed: 12/18/21 20:07> Vital Signs Vital signs: Vital Signs Temperature 36.6 C 12/18/21 17:02 Pulse 61 12/18/21 17:02 Blood Pressure 155/142 H 12/18/21 17:02 Pulse Oximetry 99 12/18/21 17:02 Temperature 36.6 C 12/18/21 17:02 Temperature Source Temporal Artery Scan 12/18/21 17:02 Pulse 61 12/18/21 17:02 Respiratory Effort Non-Labored 12/18/21 17:07 Blood Pressure 155/142 H 12/18/21 17:02 Blood Pressure Position Supine 12/18/21 17:02 Pulse Oximetry 99 12/18/21 17:02 Oxygen Delivery Method Room Air 12/18/21 17:02 Oxygen Flow Rate 0 12/18/21 17:02 Pain Level 0 12/18/21 17:02 Sign Out <Wilner Dykes MD - Last Filed: 12/18/21 20:07> Sign Out Data: Sign Out Comment: difficult to arouse from nap; now AAOx3, pending labs and CT, likely dc home Last updated by Wilner Dykes MD at 12/18/21 20:02
[2021-12-18] MEDS: Meclizine 25 MG TAB PO (17:23)
[2021-12-18 17:40] LABS: Abs Immature Grans 0.01 10^3/uL (0.0-0.06); Absolute Basophil Count 0.02 10^3/uL (0.0-0.2); Absolute Eosinophil Count 0.06 10^3/uL (0.0-0.7); Absolute Lymphocyte Count 0.99 10^3/uL (1.2-3.4); Absolute Monocyte Count 0.34 10^3/uL (0.1-0.8); Absolute Neutrophil Count 4.04 10^3/uL (1.2-6.7); Basophils % 0.4; Eosinophils % 1.1; HCT 26.5 % (36.0-46.0); HGB 9.1 g/dL (11.2-15.7); Immature Grans % 0.2; Lymphocytes % 18.1; MCH 32.7 pg (27.0-33.0); MCHC 34.3 % (32.0-36.0); MCV 95 fL (80-95); MPV 9.1 fL (8.0-11.0); Monocytes % 6.2; Platelet Count 134 10^3/uL (130-400); RBC 2.78 10^6/uL (3.93-5.22); RDW-SD 45.2 fL; WBC 5.46 10^3/uL (4.4-10.8)
[2021-12-18 17:59] LABS: ALT 36 U/L (14-59); AST 18 U/L (15-37); Albumin 3.7 g/dL (3.4-5.0); Alkaline Phosphatase 173 U/L (46-116); Bilirubin, Total 0.4 mg/dL (0.2-1.0); Calcium 8.8 mg/dL (8.5-10.1); Chloride 93 mmol/L (98-107); Estimated GFR 4.99 (mL/min/1.73m2); Glucose 193 mg/dL (74-106); Potassium 4.3 mmol/L (3.5-5.1); Sodium 135 mmol/L (136-145); Troponin I < 50 ng/L (<or=60)
[2021-12-18 18:02] LABS: BUN 91 mg/dL (7-18); CREATININE 8.2 mg/dL (0.55-1.02)
[2021-12-18 18:07] LABS: ETHANOL BLOOD < 3.0 mg/dL (<10)
--- NOTE | 2021-12-18 20:13 | DI.VRAD_ITS ---
PROCEDURE INFORMATION: Exam: CT Head Without Contrast Exam date and time: 12/18/2021 7:42 PM Age: 61 years old Clinical indication: Stroke-like symptoms; Dizziness/giddiness TECHNIQUE: Imaging protocol: Computed tomography of the head without contrast. Other technique: STROKE PROTOCOL was implemented. COMPARISON: CT HEAD WO 12/27/2017 8:03 AM FINDINGS: Brain: No acute intracranial hemorrhage identified. There is brain atrophy, periventricular white matter ischemic changes, and vascular calcifications. There is a hypodensity in the right periventricular region on series 5, image 210 which is favored to represent volume loss related to a prior infarct. Cerebral ventricles: Ventricular prominence, likely compensatory. Paranasal sinuses: Visualized sinuses are unremarkable. No fluid levels. There is some debris in the right nasal cavity, series 2, image 5 Mastoid air cells: Visualized mastoid air cells are well aerated. Bones/joints: Unremarkable. No acute fracture. Soft tissues: Unremarkable. IMPRESSION: No acute intracranial hemorrhage identified. Probable old right-sided infarct. Other findings/details as above. If the patient's symptoms remain concerning, MRI would be beneficial. ASSESSMENT: ASPECTS (Comfort Stroke Program Early CT Score) is 10. Dictated and Authenticated by: Diamond Mohamud MD. Ordering:SHAWNA Darby MD
--- NOTE | 2021-12-18 20:21 | DI.VRAD_ITS ---
PROCEDURE INFORMATION: Exam: XR Chest Exam date and time: 12/18/2021 7:48 PM Age: 61 years old Clinical indication: Other: Dizziness; Prior surgery TECHNIQUE: Imaging protocol: Radiologic exam of the chest. Views: 1 view. COMPARISON: CR XR PORTABLE CHEST AP 05/23/2021 8:44 AM FINDINGS: Tubes, catheters and devices: A pacer device remains seen. There appears to be a right axillary stent or graft. Lungs: There is blunting of the left costophrenic angle most consistent with a left pleural effusion or scarring. There are left lower lung opacities that could represent atelectasis or infection. Pleural spaces: See above. No pneumothorax. Heart/Mediastinum: The mediastinum is prominent but similar to prior examination. Bones/joints: Skeletal degenerative changes. Hyperdensities remain noted in the right humeral head, similar to prior exam. IMPRESSION: 1. There is blunting of the left costophrenic angle most consistent with a left pleural effusion or scarring. There are left lower lung opacities that could represent atelectasis or infection. 2. Other findings/details as above. If symptoms remain concerning, cross-sectional imaging could be obtained. Dictated and Authenticated by: Diamond Mohamud MD. Ordering:SHAWNA Darby MD
== END 2021-12-18 21:22 | disposition home or self-care (01) ==
PROVIDERS: Emergency Medicine; Emergency Provider Emergency Medicine; PCP Nurse Practitioner
DX: R40.4 Transient alteration of awareness (principal); E11.22 Type 2 diabetes mellitus with diabetic chronic kidney disease; N18.6 End stage renal disease; Z99.2 Dependence on renal dialysis; Z79.4 Long term (current) use of insulin; R42 Dizziness and giddiness; Z87.891 Personal history of nicotine dependence; Z79.899 Other long term (current) drug therapy
CPT/HCPCS: 36415; 80053; 99284; 70450; 71045; 80320; 84484; 85025; 99285

== ENCOUNTER → 2021-12-20 10:53 | Outpatient (BNVA) | payer MEDICARE, MEDICAID, SELFPAY | PROVIDERS: PCP Nurse Practitioner; Referring Provider Nurse Practitioner; Visit Provider Internal Medicine Cardiovascular Disease | DX: R42 Dizziness and giddiness (principal); Z99.2 Dependence on renal dialysis; I73.9 Peripheral vascular disease, unspecified; N18.6 End stage renal disease; Z95.0 Presence of cardiac pacemaker | CPT/HCPCS: 99213 ==

== ENCOUNTER 2021-12-27 12:07 | Outpatient (REF) | payer MEDICARE, MEDICAID, SELFPAY ==
[2021-12-27 15:07] LABS: Abs Immature Grans 0.04 10^3/uL (0.0-0.06); Absolute Basophil Count 0.03 10^3/uL (0.0-0.2); Absolute Eosinophil Count 0.03 10^3/uL (0.0-0.7); Absolute Lymphocyte Count 0.79 10^3/uL (1.2-3.4); Absolute Monocyte Count 0.63 10^3/uL (0.1-0.8); Absolute Neutrophil Count 6.97 10^3/uL (1.2-6.7); Basophils % 0.4; Eosinophils % 0.4; HCT 25.9 % (36.0-46.0); HGB 8.6 g/dL (11.2-15.7); Immature Grans % 0.5; Lymphocytes % 9.3; MCH 32.2 pg (27.0-33.0); MCHC 33.2 % (32.0-36.0); MCV 97 fL (80-95); MPV 9.8 fL (8.0-11.0); Monocytes % 7.4; Platelet Count 182 10^3/uL (130-400); RBC 2.67 10^6/uL (3.93-5.22); RDW 13.4 % (11.7-14.6); RDW-SD 47.3 fL; Reticulocyte 1.5 % (0.5-2.4); WBC 8.49 10^3/uL (4.4-10.8)
[2021-12-27 16:22] LABS: Iron 116 ug/dL (50-170)
[2021-12-27 17:20] LABS: TSH (W/Ref FT4) 1.18 uIU/mL (0.36-3.74)
[2021-12-27 17:33] LABS: Ferritin 1973 ng/mL (8-252); Vitamin B12 > 2000 pg/mL (193-986)
== END 2021-12-27 12:08 | disposition home or self-care (01) ==
LOC: LBN 12:07
PROVIDERS: PCP Nurse Practitioner; Visit Provider Nurse Practitioner
DX: D64.9 Anemia, unspecified (principal); E11.42 Type 2 diabetes mellitus with diabetic polyneuropathy; R42 Dizziness and giddiness; I10 Essential (primary) hypertension; Z79.899 Other long term (current) drug therapy
CPT/HCPCS: 82607; 82728; 83540; 84443; 85025; 85045

== ENCOUNTER 2021-12-27 12:21 | Emergency (ER) | payer MEDICARE, MEDICAID, SELFPAY ==
--- NOTE | 2021-12-27 12:15 | RT.EKG_ITS ---
APPROVED REPORT Exam: Resting ECG Reason for Exam: DIZZINESS Patient Location: E HR:54 bpm ECG Measurements Heart Rate 54 AXIS TN 194 P 66 QRSd 110 QRS -39 QT 452 T 63 QTc 429 Conclusion Sinus bradycardia...rate< 60 Left axis deviation...QRS axis (-30,-90) Sinus. No STEMI. I have reviewed and interpreted ECG and agree with software generated interpretation.
[2021-12-27 12:22] VITALS: BP 130/49; PULSE 56; RESP 18; TEMP 35.9; O2SAT 100
[2021-12-27 12:29] VITALS: RESP 18
--- NOTE | 2021-12-27 12:35 | ED.GENADUL_ITS ---
Discharge Plan Disposition Patient Disposition: HOME Condition: Stable Discharge Details Clinical Impression: Vertigo Primary Care Provider: Rosaura Fragoso ED Provider: Camila Miranda Home Meds and New Rx's Prescriptions: New meclizine 12.5 mg tablet 12.5 mg PO TID PRN (Reason: dizziness) Qty: 14 0RF Continued mirtazapine 15 mg tablet 15 mg PO QHS sevelamer carbonate [Renvela] 800 mg tablet 800 mg PO TID Rx Instructions: must administer with a meal/food acetylcysteine [NAC] 600 mg capsule 600 mg PO BID acetaminophen [Acetaminophen Extra Strength] 500 mg tablet 1,000 mg PO BID PRN (Reason: fever or pain) (DME) Blood Glucose Test strip See Dose Instructions .ROUTE .MEDSUPPLY Qty: 300 3RF Dose Instruction: As directed Rx Instructions: Test TID (DME) Adult Briefs - Large misc See Dose Instructions .ROUTE .MEDSUPPLY Qty: 150 12RF Dose Instruction: As directed Rx Instructions: Change as directed lamotrigine 100 mg tablet 100 mg PO BID Label Comments: Increased to bid at [place] d/c lorazepam 1 mg tablet 1 mg PO HS Label Comments: may also take 0.5mg once daily if needed. (reported progress note XOCHILTKade 05/02/18) benztropine 0.5 mg tablet 0.5 mg PO HS Rx Instructions: Note dated 02/13/19 [facility] multivitamin [Daily Multi-Vitamin] Tablet 1 tab PO DAILY Qty: 90 3RF cyanocobalamin (vitamin B-12) [Vitamin B-12] 500 mcg tablet 500 mcg PO DAILY nystatin 100,000 unit/gram powder 1 applic topical BID Qty: 60 1RF Rx Instructions: apply liberal amount to affected areas of rash to breasts until resolved acetylcysteine [NAC] 600 mg capsule 600 mg PO .COMPLEX Rx Instructions: 600 mg PO as directed; administer with a meal Vraylar 1.5 mg capsule 1.5 mg PO DAILY Rx Instructions: as of 10/27/20 w/ permission from Dr. Pedersen via Kathya [place] [facility] [place] U-100 [Novolog Flexpen U-100 Insulin] 100 unit/mL (3 mL) insulin pen See Rx Instructions subcut AC Qty: 15 3RF Rx Instructions: 2-10u based on sliding scale before meals. atorvastatin 40 mg tablet 40 mg PO DAILY Qty: 90 3RF calcium carbonate [Tums Freshers] 200 mg calcium (500 mg) tablet,chewable 200 mg PO DAILY PRN Rx Instructions: Discharge note 03/15/21 [facility] [place] Eliquis 5 mg tablet 2.5 mg PO BID Qty: 180 3RF fosinopril 40 mg tablet 40 mg PO BID Rx Instructions: increased by [facility] [place] 05/26/21 amlodipine 10 mg tablet 10 mg PO DAILY Qty: 90 3RF aspirin [Adult Aspirin Regimen] 81 mg tablet,delayed release (DR/EC) 81 mg PO DAILY Qty: 90 3RF omeprazole 40 mg capsule,delayed release(DR/EC) 40 mg PO DAILY Qty: 90 3RF (DME) pen needle, diabetic 31 gauge x 1/3 needle 1 ea Miscellaneous QID Qty: 100 3RF Rx Instructions: BD Ultrafine Vane 4mm/32G For DM E11.65 A1C<7 manage freq. hyperglycemic episodes carvedilol [Coreg] 12.5 mg tablet 12.5 mg PO BID Qty: 180 3RF Rx Instructions: must administer with a meal/food Increased by [facility] [place] 05/26/21 insulin glargine [Basaglar KwikPen U-100 Insulin] 100 unit/mL (3 mL) insulin pen 23 unit subcut QAM Qty: 15 5RF Discharge Instructions Instructions: Vertigo (ED) Additional Instructions: Your lab tests today are reassuring and show no evidence of acute concerning or significant findings. A prescription for meclizine to take as needed and directed for dizziness has been sent electronically to your pharmacy. Proceed with your regularly scheduled dialysis session tomorrow. Follow-up with your primary care doctor in 1 week. Return to the emergency department with any worsening or new concerning symptoms. Discharge Data Discharge Date/Time-TO BE ENTERED AT DEPARTURE: 12/27/21 16:59 Discharge Physician: Camila Miranda Medical Decision Making 61-year-old female with a history of vertigo, anxiety, diabetes, pacemaker, PTSD, end-stage renal disease on dialysis on Eliquis for graft patency protection presents for dizziness for the past 3 weeks. Last dialysis session yesterday. Vitals within normal limits. EKG notes rate of 54, sinus, no STEMI nondiagnostic. Patient was seen here on 12/18 for decreased responsiveness and had an unremarkable CT head and was discharged home. She has no focal deficits on exam today and appears nontoxic without meningeal signs. Patient presentation does not appear consistent with ACS, PE, CVA, subarachnoid hemorrhage or meningitis. Will obtain screening labs and give fluids and meclizine and reassess. Do not see an indication for repeat imaging at this time. Labs reviewed and unremarkable for significant or concerning findings. Hemoglobin 8.8. Report of guaiac negative per PCP office today so we will hold on repeat rectal exam which patient would prefer. Patient reassessed and her dizziness is completely resolved and she is requesting to go home. She is requesting meclizine for home. She was given 2 tabs ago and a prescription sent electronically to her pharmacy. Advised to follow up with the primary care doctor for re-evaluation. Usual and customary return precautions given prior to discharge. Medical Records Medical records reviewed: Yes I reviewed the patient's medical records. Lab Data Lab results reviewed: Yes I reviewed the patient's lab results. Labs: Laboratory Tests Range/Units 12/27/21 12/27/21 13:45 13:45 WBC (4.4-10.8) 10^3/uL 7.11 RBC (3.93-5.22) 10^6/uL 2.70 L Hgb (11.2-15.7) g/dL 8.8 L Hct (36.0-46.0) % 25.7 L MCV (80-95) fL 95 MCH (27.0-33.0) pg 32.6 MCHC (32.0-36.0) % 34.2 RDW (11.7-14.6) % 13.2 Plt Count (130-400) 10^3/uL 170 MPV (8.0-11.0) fL 9.2 Immature Gran % 0.4 Neutrophils % 80.3 Lymphocytes % 10.5 Monocytes % 7.7 Eosinophils % 0.7 Basophils % 0.4 Nucleated RBC % (0.0-0.3) % 0.0 Absolute Neutrophils (1.2-6.7) 10^3/uL 5.70 Absolute Lymphocytes (1.2-3.4) 10^3/uL 0.75 L Absolute Monocytes (0.1-0.8) 10^3/uL 0.55 Absolute Eosinophils (0.0-0.7) 10^3/uL 0.05 Absolute Basophils (0.0-0.2) 10^3/uL 0.03 Sodium (136-145) mmol/L 133 L Potassium (3.5-5.1) mmol/L 4.3 Chloride (98-107) mmol/L 91 L Carbon Dioxide (21.0-32.0) mmol/L 33.1 H Anion Gap (3-11) mmol/L 8.9 BUN (7-18) mg/dL 48 H Creatinine (0.55-1.02) mg/dL 6.2 H* Est GFR (CKD-EPI 2020) (mL/min/1.73m2) 7.22 Glucose (74-106) mg/dL 113 H Calcium (8.5-10.1) mg/dL 9.3 Magnesium (1.8-2.4) mg/dL 2.3 Total Bilirubin (0.2-1.0) mg/dL 0.6 AST (15-37) U/L 14 L ALT (14-59) U/L 28 Alkaline Phosphatase (46-116) U/L 178 H Troponin I (<or=60) ng/L < 50 Total Protein (6.4-8.2) g/dL 7.6 Albumin (3.4-5.0) g/dL 3.9 ECG Data Attestation: I personally reviewed and interpreted this ECG (s) as follows: Interpretation: Rate of 54, sinus, no STEMI HPI General Mode of arrival: ambulatory . Date/Time Provider Initiated Documentation: 12/27/21 12:33 . Limitations to Documentation: no limitations . Information obtained by: patient . HPI Narrative: Patient is a 61-year-old female with a history of vertigo, solitary left kidney, obesity, diabetes, PTSD, end-stage renal disease on dialysis, on Eliquis for graft patency protection presents for dizziness for the past 3 weeks. Patient states this feels consistent with her usual vertigo but more intense than usual. She describes a spinning sensation. She denies any headache, blurry vision, chest pain, shortness of breath, abdominal pain, unilateral numbness or weakness, nausea, vomiting, diarrhea or urinary symptoms. She was at her PCP office today for follow-up status post recent ER visit for decreased responsiveness and had a fingerstick hemoglobin of 8.8 and a negative guaiac and had complained of dizziness while waiting for her ride home and requested transfer to the ER for further evaluation. Related Data Home Medications Medication Instructions Recorded Confirmed blood sugar diagnostic (Blood #300 ea 05/06/18 12/27/21 Glucose Test strips) lamotrigine 100 mg tablet 100 mg PO BID 05/09/18 12/27/21 lorazepam 1 mg tablet 1 mg PO HS 05/09/18 12/27/21 diaper,brief,adult,disposable #150 ea 07/25/18 12/27/21 (Adult Briefs - Large) benztropine 0.5 mg tablet 0.5 mg PO HS 03/06/19 12/27/21 multivitamin (Daily Multi-Vitamin 1 tab PO DAILY #90 tabs 05/15/19 12/27/21 tablet) cyanocobalamin (vitamin B-12) 500 500 mcg PO DAILY 08/05/19 12/27/21 mcg tablet (Vitamin B-12) nystatin 100,000 unit/gram topical 1 applic topical BID #60 grams 02/04/20 12/27/21 powder acetylcysteine 600 mg capsule (NAC) 600 mg PO BID 02/11/20 12/27/21 mirtazapine 15 mg tablet 15 mg PO QHS 02/11/20 12/27/21 sevelamer carbonate 800 mg tablet 800 mg PO TID 02/11/20 12/27/21 (Renvela) acetaminophen 500 mg tablet 1,000 mg PO BID PRN fever or pain 07/06/20 12/27/21 (Acetaminophen Extra Strength) acetylcysteine 600 mg capsule (NAC) 600 mg PO .COMPLEX 08/25/20 12/27/21 cariprazine 1.5 mg capsule 1.5 mg PO DAILY 10/27/20 12/27/21 (Vraylar) insulin aspart U-100 100 unit/mL See Rx Instructions subcut AC #15 12/16/20 12/27/21 (3 mL) subcutaneous pen (Novolog mL Flexpen U-100 Insulin aspart) atorvastatin 40 mg tablet 40 mg PO DAILY #90 tabs 02/28/21 12/27/21 calcium carbonate 200 mg calcium 200 mg PO DAILY PRN 03/18/21 12/27/21 (500 mg) chewable tablet (Tums Freshers) apixaban 5 mg tablet (Eliquis) 2.5 mg PO BID Decreased to 2.5 BID 05/05/21 12/27/21 07/14/19 per heme recommendati #180 tabs fosinopril 40 mg tablet 40 mg PO BID 05/30/21 12/27/21 amlodipine 10 mg tablet 10 mg PO DAILY #90 tabs 06/16/21 12/27/21 aspirin 81 mg tablet,delayed 81 mg PO DAILY #90 tabs 07/11/21 12/27/21 release (Adult Aspirin Regimen) omeprazole 40 mg capsule,delayed 40 mg PO DAILY #90 caps 07/11/21 12/27/21 release pen needle, diabetic 31 gauge x #100 ea 07/18/21 12/27/2104/25 carvedilol 12.5 mg tablet (Coreg) 12.5 mg PO BID #180 tabs 09/08/21 12/27/21 insulin glargine 100 unit/mL (3 23 unit (0.23 mL) subcut QAM #15 mL 11/14/21 12/27/21 mL) subcutaneous pen (Basaglar KwikPen U-100 Insulin) meclizine 12.5 mg tablet 12.5 mg PO TID PRN dizziness #14 12/27/21 tabs Previous Rx's Medication Instructions Recorded blood sugar diagnostic (Blood #300 ea 05/06/18 Glucose Test strips) diaper,brief,adult,disposable #150 ea 07/25/18 (Adult Briefs - Large) multivitamin (Daily Multi-Vitamin 1 tab PO DAILY #90 tabs 05/15/19 tablet) nystatin 100,000 unit/gram topical 1 applic topical BID #60 grams 02/04/20 powder insulin aspart U-100 100 unit/mL See Rx Instructions subcut AC #15 12/16/20 (3 mL) subcutaneous pen (Novolog mL Flexpen U-100 Insulin aspart) atorvastatin 40 mg tablet 40 mg PO DAILY #90 tabs 02/28/21 apixaban 5 mg tablet (Eliquis) 2.5 mg PO BID Decreased to 2.5 BID 05/05/21 07/14/19 per heme recommendati #180 tabs amlodipine 10 mg tablet 10 mg PO DAILY #90 tabs 06/16/21 aspirin 81 mg tablet,delayed 81 mg PO DAILY #90 tabs 07/11/21 release (Adult Aspirin Regimen) omeprazole 40 mg capsule,delayed 40 mg PO DAILY #90 caps 07/11/21 release pen needle, diabetic 31 gauge x #100 ea 07/18/2104/25 carvedilol 12.5 mg tablet (Coreg) 12.5 mg PO BID #180 tabs 09/08/21 insulin glargine 100 unit/mL (3 23 unit (0.23 mL) subcut QAM #15 mL 11/14/21 mL) subcutaneous pen (Basaglar KwikPen U-100 Insulin) meclizine 12.5 mg tablet 12.5 mg PO TID PRN dizziness #14 12/27/21 tabs Allergies Allergy/AdvReac Type Severity Reaction Status Date / Time aripiprazole [From Abilify] Allergy Severe Verified 12/27/21 12:32 duloxetine HCl Allergy Severe Hives Verified 12/27/21 12:32 [From Cymbalta] oxycodone Allergy Severe Hives Verified 12/27/21 12:32 Sulfa (Sulfonamide Allergy Severe Skin Rash Verified 12/27/21 12:32 Antibiotics) amitriptyline Allergy Intermediate Verified 12/27/21 12:32 citalopram Allergy Intermediate HIVES Verified 12/27/21 12:32 fesoterodine Allergy Intermediate HIVES Verified 12/27/21 12:32 latex Allergy Intermediate Hives Verified 12/27/21 12:32 rabies vaccine, human Allergy Intermediate Verified 12/27/21 12:32 diploid cell [Rabies Vaccine,Human Diploid] Tetanus Vaccines and Toxoid Allergy Intermediate Swelling/Ed Verified 12/27/21 12:32 [Tetanus Vaccines & Toxoid] ghulam acetaminophen [From Vicodin] Allergy Unknown Verified 12/27/21 12:32 bupropion HCl Allergy Unknown Verified 12/27/21 12:32 [From Wellbutrin] celecoxib [From Celebrex] Allergy Unknown Verified 12/27/21 12:32 diazepam [From Valium] Allergy Unknown Verified 12/27/21 12:32 divalproex sodium Allergy Unknown Verified 12/27/21 12:32 [From Depakote] escitalopram oxalate Allergy Unknown Verified 12/27/21 12:32 [From Lexapro] fluoxetine HCl [From Prozac] Allergy Unknown Verified 12/27/21 12:32 fosphenytoin sodium Allergy Unknown Verified 12/27/21 12:32 [From Cerebyx] hydrocodone bitartrate Allergy Unknown Verified 12/27/21 12:32 [From Vicodin] morphine Allergy Unknown Verified 12/27/21 12:32 nicotine [From Nicoderm CQ] Allergy Unknown rash/hives Verified 12/27/21 12:32 paroxetine HCl [From Paxil] Allergy Unknown Verified 12/27/21 12:32 phenytoin sodium Allergy Unknown Verified 12/27/21 12:32 [From Dilantin] phenytoin sodium extended Allergy Unknown Verified 12/27/21 12:32 [From Dilantin] prednisone Allergy Unknown Verified 12/27/21 12:32 procaine HCl [From Novocain] Allergy Unknown Verified 12/27/21 12:32 quetiapine Allergy Unknown Verified 12/27/21 12:32 quetiapine fumarate Allergy Unknown Verified 12/27/21 12:32 [From Seroquel] risperidone [From Risperdal] Allergy Unknown Verified 12/27/21 12:32 sertraline Allergy Unknown Hives Verified 12/27/21 12:32 trazodone Allergy Unknown Verified 12/27/21 12:32 venlafaxine HCl Allergy Unknown Verified 12/27/21 12:32 [From Effexor] warfarin [From Coumadin] Allergy none Verified 12/27/21 12:32 listed on referral thiothixene [Thiothixene] AdvReac Severe Nausea Verified 12/27/21 12:32 topiramate AdvReac Intermediate Nausea Verified 12/27/21 12:32 gabapentin AdvReac Unknown Severe Verified 12/27/21 12:32 dizziness, runs; vomiting lidocaine AdvReac Unknown Nausea Verified 12/27/21 12:32 ibuprofen AdvReac headache Verified 12/27/21 12:32 and nausea melatonin AdvReac nightmares Verified 12/27/21 12:32 varenicline tartrate AdvReac Psychosis Verified 12/27/21 12:32 [From Chantix] ABSOLUTE CONTRAINDICATION AdvReac Severe Headache Uncoded 12/27/21 12:32 FOR MRI (disconnected RV pacer lead) general anesthia AdvReac Unknown Uncoded 12/27/21 12:32 General Stated Complaint: Dizzy/Sync ASIM: 3 Review of Systems All systems reviewed & are unremarkable except as noted in HPI and below Constitutional Constitutional: Denies chills, Denies excessive sweating, Denies fatigue, Denies fever(s), Denies weakness and Denies weight loss Eyes Eyes: Reports system reviewed and no additional complaints, except as documented and Denies blurry vision ENT Ears, Nose, Mouth, and Throat: Denies vertigo, Reports dizziness, Denies otalgia, Denies nasal congestion, Denies sore throat and Denies throat swelling Cardiovascular Cardiovascular: Denies chest pain, Denies syncope, Denies rapid heart rate and Denies dyspnea Respiratory Respiratory: Denies chest congestion, Denies cough, Denies pain on inspiration and Denies dyspnea Gastrointestinal Gastrointestinal: Denies abdominal pain, Denies diarrhea and Denies vomiting Genitourinary Genitourinary: Denies hematuria, Denies dysuria and Denies flank pain Musculoskeletal Musculoskeletal: Denies back pain and Denies joint swelling Integumentary/Breasts Skin/Breast: Denies lesions and Denies rash Neurologic Neurologic: Denies behavioral changes, Denies confusion, Denies vertigo, Reports dizziness, Denies syncope, Denies localized weakness and Denies weakness Psychiatric Psychiatric: Denies behavioral changes, Denies confusion and Denies depression Endocrine Endocrine: Denies excessive sweating and Denies fatigue Hematologic/Lymphatic Hematologic/Lymphatic: Denies easy bruising and Denies lymphadenopathy Allergic/Immunologic Allergic/Immunologic: Denies throat swelling PFSH All Active Problems (Updated 12/27/21 @ 17:05 by Camila Miranda DO) Vertigo (Acute) Decreased responsiveness (Acute) 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 11/15/21 Decision from Transplant Eval that pt is not a candidate for kidney transplant Dysuria (Acute) Memory deficit (Acute) Solitary left kidney (Acute) Decreased GFR (Acute) Viral syndrome (Acute) Bilateral leg edema (Acute) Colonoscopy refused (Acute) Urinary incontinence (Acute 02/11/15) Urge incontinence (Chronic) Elevated cholesterol (Chronic) Fracture of radial neck, left, closed (Acute) H/O endarterectomy (Chronic) Non-adherence to medical treatment (Acute) Type 2 diabetes mellitus (Chronic) Sinus bradycardia (Chronic) S/p pacemaker. Generator change 12/2013 [facility] [place] [facility] [place] Pocket revision & new RV lead 10/2014 [facility] [place] [place]. Postmenopausal (Chronic) LMP ~2004 Paranoia (Chronic 12/19/16) Meralgia paresthetica, right lower limb (Chronic 11/05/15) Dr. 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 Congenital single kidney (Chronic 03/08/15) by xray from [facility] 03/17/09 in scanned records Adult BMI > 30 (Chronic 06/07/15) Medical History (Updated 12/27/21 @ 17:05 by Camila Miranda DO) Bipolar 1 disorder Depression End stage renal disease 07/21/20 [facility] [place] Hemodialysis patient Hypertension (~06/20/19) Goal <130/80 [facility] Pacemaker (10/22/14) for bradycardia and sinus node dysfunction DDD pacer 2004 in [place] Medtronic dual lead programmed VVI - PG replaced 01/01/2014 [facility] [place] [facility] [place] Old RV lead abandoned PAD (peripheral artery disease) (08/13/17) PTSD (post-traumatic stress disorder) (05/28/17) Seizure Sinus node dysfunction (10/22/14) Stroke R parietal; asymptomatic; Type 2 diabetes mellitus with diabetic polyneuropathy Surgical History aortobifemoral bypass (09/07/17) [facility] [place] vascular. August 2017 section (~1985) Pacemaker (~2004) [place], [place] S/P angioplasty (01/30/18) left femoral endarterectomy and patch angioplasty, Aortogram, Over the wire Left ABF graft thrombectomy, Open ledt ABF thrombectomy, left ABF graft stent (VBX 8x39) S/P aortobifemoral bypass surgery Family History Mother No problems noted. Father No problems noted. Sister No problems noted. Social History Smoking/Tobacco Use Status: Former Tobacco Use Quit Date: 03/03/21 Pack-years: 37 Smoking risk assessment performed?: Yes Alcohol Intake: never Drug use: Never Substance use type: does not use Adopted: No Number of Children: 1 Do you need help understanding health information?: Always current occupation: disabliilty What type of physical activity do you participate in: walking Duration: 15-30 minutes/day Frequency: 3-4 times per week Do you feel safe at home: Yes Do you feel safe in your relationship?: Yes Exam Const General: cooperative Orientation: alert, awake and oriented x3 HENMT Head: normal to inspection Ears: hearing grossly normal bilaterally, external ears normal and TM's normal bilaterally General nose exam: external nose normal Face and sinus: normal facial exam Mouth: oral mucosae normal Throat: posterior oropharynx normal Eyes General: appearance normal, both eyes and all related structures Eyelids: eyelids normal Pupils: PERRL EOM: EOM intact bilaterally Neck Neck: normal visual inspection Lymphatic: no lymphadenopathy noted Chest Chest: normal inspection of the chest Resp Effort & Inspection: normal respiratory effort and able to speak in complete sentences Auscultation: clear to auscultation bilaterally Cardio Rate: regular rate Rhythm: regular rhythm GI Inspection: normal to inspection Palpation: soft, not firm, no guarding, no hepatosplenomegaly, no masses and nontender Auscultation: normal bowel sounds Skin General skin exam: no rashes or lesions noted Neuro General: patient alert, patient awake, patient oriented x3, moves all extremities and no meningeal signs Cranial Nerves: CN's II-XI intact bilaterally Cognition: normal cognition Motor: muscle tone normal throughout Sensory Exam: no sensory deficits noted Extrem General: normal to inspection, full ROM, capillary refill normal and no edema Other: Fistula graft right upper extremity Psych Appearance: grossly normal Mental Status: mental status grossly normal Speech and Movement: speech and movement normal Affect: normal affect Thought Process: normal Course Vital Signs Vital signs: Vital Signs Temperature 96.6 F L 12/27/21 12:22 Pulse 56 L 12/27/21 12:22 Respiratory Rate 18 12/27/21 12:22 Blood Pressure 130/49 L 12/27/21 12:22 Pulse Oximetry 100 12/27/21 12:22 Temperature 96.6 F L 12/27/21 12:22 Temperature Source Tympanic 12/27/21 12:22 Pulse 56 L 12/27/21 12:22 Respiratory Rate 18 12/27/21 12:29 Respiratory Effort Non-Labored 12/27/21 12:29 Respiratory Depth Normal 12/27/21 12:29 Respiratory Pattern Normal 12/27/21 12:29 Blood Pressure 130/49 L 12/27/21 12:22 Blood Pressure Position Sitting 12/27/21 12:22 Pulse Oximetry 100 12/27/21 12:22 Oxygen Delivery Method Room Air 12/27/21 12:22 Oxygen Flow Rate 0 12/27/21 12:22
[2021-12-27 13:50] LABS: Abs Immature Grans 0.03 10^3/uL (0.0-0.06); Absolute Basophil Count 0.03 10^3/uL (0.0-0.2); Absolute Eosinophil Count 0.05 10^3/uL (0.0-0.7); Absolute Lymphocyte Count 0.75 10^3/uL (1.2-3.4); Absolute Monocyte Count 0.55 10^3/uL (0.1-0.8); Basophils % 0.4; Eosinophils % 0.7; HCT 25.7 % (36.0-46.0); HGB 8.8 g/dL (11.2-15.7); Immature Grans % 0.4; Lymphocytes % 10.5; MCH 32.6 pg (27.0-33.0); MCHC 34.2 % (32.0-36.0); MCV 95 fL (80-95); MPV 9.2 fL (8.0-11.0); Monocytes % 7.7; Neutrophils % 80.3; Platelet Count 170 10^3/uL (130-400); RDW 13.2 % (11.7-14.6); RDW-SD 45.6 fL; WBC 7.11 10^3/uL (4.4-10.8)
[2021-12-27 14:10] LABS: ALT 28 U/L (14-59); AST 14 U/L (15-37); Albumin 3.9 g/dL (3.4-5.0); Alkaline Phosphatase 178 U/L (46-116); Anion Gap 8.9 mmol/L (3-11); BUN 48 mg/dL (7-18); Bilirubin, Total 0.6 mg/dL (0.2-1.0); CO2 33.1 mmol/L (21.0-32.0); Calcium 9.3 mg/dL (8.5-10.1); Chloride 91 mmol/L (98-107); Estimated GFR 7.22 (mL/min/1.73m2); Glucose 113 mg/dL (74-106); Magnesium 2.3 mg/dL (1.8-2.4); Potassium 4.3 mmol/L (3.5-5.1); Sodium 133 mmol/L (136-145); Total Protein 7.6 g/dL (6.4-8.2); Troponin I < 50 ng/L (<or=60)
[2021-12-27 14:12] LABS: CREATININE 6.2 mg/dL (0.55-1.02)
[2021-12-27] MEDS: Meclizine 25 MG TAB PO (14:36)
[2021-12-27] MEDS: Normal Saline 250 ML IV (14:36)
[2021-12-27] MEDS: Meclizine 12.5 MG TAB 25 MG PO (16:53)
[2021-12-27 16:58] VITALS: TEMP 36.6
== END 2021-12-27 16:59 | disposition home or self-care (01) ==
PROVIDERS: Emergency Provider Physician Assistant; PCP Nurse Practitioner
DX: R42 Dizziness and giddiness (principal); I12.0 Hypertensive chronic kidney disease with stage 5 chronic kidney disease or end stage renal disease; E11.22 Type 2 diabetes mellitus with diabetic chronic kidney disease; N18.6 End stage renal disease; E11.42 Type 2 diabetes mellitus with diabetic polyneuropathy; Z99.2 Dependence on renal dialysis; Z79.4 Long term (current) use of insulin; Z87.891 Personal history of nicotine dependence; Z86.73 Personal history of transient ischemic attack (TIA), and cerebral infarction without residual deficits; Z79.82 Long term (current) use of aspirin; Z79.899 Other long term (current) drug therapy
CPT/HCPCS: 36415; 80053; 93005; 99283; 83735; 84484; 85025; 93010; 99284

== ENCOUNTER 2022-04-13 02:06 | Outpatient (CLI) | payer MEDICARE, MEDICAID, SELFPAY ==
[2022-04-13 10:17] LABS: Abs Immature Grans 0.03 10^3/uL (0.0-0.06); Absolute Basophil Count 0.03 10^3/uL (0.0-0.2); Absolute Eosinophil Count 0.04 10^3/uL (0.0-0.7); Absolute Lymphocyte Count 1.03 10^3/uL (1.2-3.4); Absolute Monocyte Count 0.51 10^3/uL (0.1-0.8); Absolute Neutrophil Count 6.14 10^3/uL (1.2-6.7); Basophils % 0.4; Eosinophils % 0.5; HCT 26.2 % (36.0-46.0); HGB 8.8 g/dL (11.2-15.7); Immature Grans % 0.4; Lymphocytes % 13.2; MCH 32.7 pg (27.0-33.0); MCHC 33.6 % (32.0-36.0); MCV 97 fL (80-95); MPV 9.3 fL (8.0-11.0); Monocytes % 6.6; Neutrophils % 78.9; Platelet Count 176 10^3/uL (130-400); RBC 2.69 10^6/uL (3.93-5.22); RDW 12.9 % (11.7-14.6); RDW-SD 46.3 fL; Reticulocyte 0.8 % (0.5-2.4); WBC 7.78 10^3/uL (4.4-10.8)
[2022-04-13 12:53] LABS: Vitamin D 25 Total 46.6 ng/mL (30-100)
[2022-04-13 13:07] LABS: ALT 34 U/L (14-59); AST 21 U/L (15-37); Alkaline Phosphatase 230 U/L (46-116); Anion Gap 11.1 mmol/L (3-11); BUN 42 mg/dL (7-18); Bilirubin, Total 0.6 mg/dL (0.2-1.0); CO2 32.9 mmol/L (21.0-32.0); Calcium 9.3 mg/dL (8.5-10.1); Chloride 93 mmol/L (98-107); Estimated GFR 9.13 (mL/min/1.73m2); Glucose 117 mg/dL (74-106); Potassium 4.1 mmol/L (3.5-5.1); Sodium 137 mmol/L (136-145); Total Protein 7.3 g/dL (6.4-8.2)
[2022-04-13 13:12] LABS: Ferritin 1986 ng/mL (8-252)
[2022-04-13 13:15] LABS: CREATININE 5.1 mg/dL (0.55-1.02)
== END 2022-04-13 02:07 | disposition home or self-care (01) ==
LOC: LBO 02:06
PROVIDERS: PCP Nurse Practitioner; Visit Provider Nurse Practitioner
DX: D64.9 Anemia, unspecified (principal); E55.9 Vitamin D deficiency, unspecified; I10 Essential (primary) hypertension; Z98.890 Other specified postprocedural states; Z99.2 Dependence on renal dialysis; J45.909 Unspecified asthma, uncomplicated; N18.4 Chronic kidney disease, stage 4 (severe)
CPT/HCPCS: 36415; 80053; 82306; 82728; 85025; 85045

== ENCOUNTER 2022-04-20 13:59 | Outpatient (REF) | payer MEDICARE, MEDICAID, SELFPAY ==
[2022-04-22 03:32] LABS: Influenza A RNA Result Negative (Negative); Influenza B RNA Result Negative (Negative); RSV RNA Result Negative (Negative)
[2022-04-22 10:13] LABS: COVID-19 RT-PCR UVMMC Result Negative (Negative)
== END 2022-04-20 14:00 | disposition home or self-care (01) ==
LOC: LBN 13:59
PROVIDERS: PCP Nurse Practitioner; Visit Provider Nurse Practitioner
DX: Z20.822 Contact with and (suspected) exposure to COVID-19 (principal); Z53.20 Procedure and treatment not carried out because of patient's decision for unspecified reasons; R05.9 Cough, unspecified; R09.81 Nasal congestion; R53.83 Other fatigue
CPT/HCPCS: 87631; U0003

== ENCOUNTER 2022-04-26 13:48 | Outpatient (REF) | payer MEDICARE, MEDICAID, SELFPAY ==
[2022-04-26 15:04] LABS: HGB 7.1 g/dL (11.2-15.7)
== END 2022-04-26 13:49 | disposition home or self-care (01) ==
LOC: LBN 13:48
PROVIDERS: PCP Nurse Practitioner; Visit Provider Internal Medicine Nephrology
DX: D64.9 Anemia, unspecified (principal)
CPT/HCPCS: 85018

== ENCOUNTER 2022-05-05 01:03 | Outpatient (RCR) | payer MEDICARE, MEDICAID, SELFPAY ==
[2022-05-04] MEDS: Normal Saline Flush 10 ML SYR IVP (11:19)
--- OUTSIDE RECORDS SUMMARY | 2022-05-04 11:20 | XMS_ITS ---
:1960 Author Organization [facility] Address [address] [place] [address] Care Team Providers Name Role Phone Shanae Renteria Unavailable Unavailable PROBLEMS Type Condition ICD9-CM [id number] Onset Condition SNOMED Cod e Code Code Dates Status Problem Type 2 diabetes E11.65 Active 3680 [id number] mellitus with hyperglycemia Problem Type 2 diabetes E11.40 Active 1511 [id number] mellitus with diabetic neuropathy, unspecified Problem terminal operator current Z79.4 Active 71 [id number] use of insulin Problem Type 2 diabetes E11.8 Active 4220 14227 mellitus with unspecified complications Problem Type 2 [...] Location Date Diagnosis xxOFFICE NON CLINICAL [address] [facility] May, [place] [address] [facility] [address] [facility] Apr, [place] [address] [facility] [address] [facility] Apr, Cellulitis L0 3.90 ; [address] [place], [place] Paronychia of toe of left 12504 foot L03.032 ; T ype 2 diabetes mellitu s with other skin compl ications E11.628 ; Type 2 diabetes mellitus with hyperglycemia E1 1.65 ; Type 2 diabetes mellitus with diabetic ne uropathy, unspecified E11. 40 ; Type 2 diabetes melli tus with unspecified comp lications E11.8 and Long t erm current use of i nsulin Z79.4 [facility] [address] [facility] Apr, [place] [address] [facility] [address] [facility] [address] Apr, [place] [address] IMMUNIZATIONS No Known Immunizations SOCIAL HISTORY Qualifiers Date Current Smoker REASON FOR REFERRAL FUNCTIONAL STATUS PLAN OF CARE Activity Details Follow Up 1 Week Reason: Future Test CBC WITH AUTO DIFF 20170523 Future Test COMPMET 20170523 Future Test CRP-INFLAM 20170523 Future Test HEMOGLOBIN A1C 20170523 Future Test SED RATE [id number] Future Test X Foot L 3V [id number] VITAL SIGNS MEDICATIONS Medication Instructions Dosage Frequency [...] Date Ordered Result Body Site COBAN TAPE (27045) May 23, 2017 SOLOSITE (12019) May 23, 2017 RESULTS Name Result Date [...] Pt states she saw Dr. Kirby in [facility] and she was very upset , Lab request, updating information Insurance Providers [facility] Health Member Patient Patient Patient Patient Patient Subscriber Subscriber Subscriber Group Insurance Plan Plan Plan Plan ID Relationship Address Phone Name Date of ID Name Date of No Type Insurance Insurance Insurance Coverage to Subscriber Address Phone Name Dates S-MEDICAID EDS [id number] [place] self [place] [id number] [place] [address] [place] [facility] [id number] MEDICAID EDS MEDICAID self N[place] [id number] [place] [facility] [id number] MEDICARE 3000 GOFFS MEDICARE self [place] [id number] [facility] [id number] SELF PAY [address] SELF PAY self [place] [id number] [place] [id number] INSURANCE MEDICARE 3000 [place] MEDICARE self [place] [id number] [facility] [id number]
[2022-05-04 11:24] LABS: Abs Immature Grans 0.04 10^3/uL (0.0-0.06); Absolute Basophil Count 0.01 10^3/uL (0.0-0.2); Absolute Eosinophil Count 0.02 10^3/uL (0.0-0.7); Absolute Monocyte Count 0.41 10^3/uL (0.1-0.8); Absolute Neutrophil Count 4.73 10^3/uL (1.2-6.7); Basophils % 0.2; Eosinophils % 0.3; Immature Grans % 0.7; Lymphocytes % 10.3; MCH 33.7 pg (27.0-33.0); MCV 102 fL (80-95); MPV 9.1 fL (8.0-11.0); Monocytes % 7.1; Neutrophils % 81.4; Platelet Count 184 10^3/uL (130-400); RBC 1.78 10^6/uL (3.93-5.22); RDW 16.1 % (11.7-14.6); RDW-SD 51.6 fL; WBC 5.81 10^3/uL (4.4-10.8)
[2022-05-04 11:31] LABS: HCT 18.2 % (36.0-46.0)
[2022-05-04 12:12] VITALS: BP 80/46; PULSE 53; RESP 18; TEMP 36.4; O2SAT 100
[2022-05-04 12:30] VITALS: BP 110/71; PULSE 55; RESP 18; TEMP 36.5; O2SAT 99
[2022-05-04 12:45] VITALS: BP 128/72; PULSE 58; RESP 18; TEMP 36; O2SAT 100
[2022-05-04 13:15] VITALS: BP 104/75; PULSE 59; RESP 18; TEMP 36.3; O2SAT 98
[2022-05-04 14:15] VITALS: BP 126/78; PULSE 54; RESP 18; TEMP 36.1; O2SAT 100
== END 2022-05-23 23:59 | disposition home or self-care (01) ==
LOC: INF 01:03
PROVIDERS: PCP Nurse Practitioner; Visit Provider Nurse Practitioner
DX: D64.9 Anemia, unspecified (principal)
CPT/HCPCS: 36415; 36430; 86850; 86900; 86901; 86920; 85025; P9016

== ENCOUNTER 2022-05-05 09:19 | Emergency (ER) | payer MEDICARE, MEDICAID, SELFPAY ==
[2022-05-05] VITALS (8 sets, daily range): BP systolic 132–152; BP diastolic 49–66; PULSE 59–94; RESP 16–18; TEMP 36.3–36.7; O2SAT 94–97
--- NOTE | 2022-05-05 09:30 | DI.RAD_ITS ---
Exam(s) XR PELVIS AP XR FEMUR LT EXAM: XR PELVIS AP and XR femur LT CLINICAL HISTORY: Fall, R/O fracture. TECHNIQUE: 2D digital imaging was performed. Five images were obtained. COMPARISON: CR RT HIP COMPLETE AP PELVIS from 12/13/2014 CR XR FEMUR LT from 05/05/2022 FINDINGS: BONES: There appears to be cortical irregularity of the inferior left pubic ramus suspicious for nond isplaced fracture. The femur is intact. No bony destructive lesion is seen. JOINTS: No dislocation present. The sacroiliac joints and symphysis pubis are unremarkable. SOFT TISSUE: Normal. IMPRESSION: Findings suspicious for left inferior pubic ramus fracture. A CT scan of the pelvis is recommended f or further evaluation. DATA REPOSITORY: RADIATION DOSE DELIVERED:
--- NOTE | 2022-05-05 09:44 | ED.GENADUL_ITS ---
Discharge Plan Disposition Patient Disposition: Home Condition: Stable Discharge Details Clinical Impression: Fracture of left inferior pubic ramus Primary Care Provider: Rosaura Fragoso ED Provider: Yamila Naqvi Home Meds and New Rx's Prescriptions: Continued mirtazapine 15 mg tablet 15 mg PO QHS sevelamer carbonate [Renvela] 800 mg tablet 800 mg PO TID Rx Instructions: must administer with a meal/food acetylcysteine [NAC] 600 mg capsule 600 mg PO BID acetaminophen [Acetaminophen Extra Strength] 500 mg tablet 1,000 mg PO BID PRN (Reason: fever or pain) insulin glargine [Basaglar KwikPen U-100 Insulin] 100 unit/mL (3 mL) insulin pen 16 unit subcut QAM meclizine 12.5 mg tablet 12.5 mg PO TID PRN (Reason: dizziness) Qty: 14 0RF (DME) Blood Glucose Test strip See Dose Instructions .ROUTE .MEDSUPPLY Qty: 300 3RF Dose Instruction: As directed Rx Instructions: Test TID (DME) Adult Briefs - Large misc See Dose Instructions .ROUTE .MEDSUPPLY Qty: 150 12RF Dose Instruction: As directed Rx Instructions: Change as directed lamotrigine 100 mg tablet 100 mg PO BID Label Comments: Increased to bid at [place] d/c lorazepam 1 mg tablet 1 mg PO HS Label Comments: may also take 0.5mg once daily if needed. (reported progress note ZEB 05/02/18) benztropine 0.5 mg tablet 0.5 mg PO HS Rx Instructions: Note dated 02/13/19 [facility] multivitamin [Daily Multi-Vitamin] Tablet 1 tab PO DAILY Qty: 90 3RF cyanocobalamin (vitamin B-12) [Vitamin B-12] 500 mcg tablet 500 mcg PO DAILY nystatin 100,000 unit/gram powder 1 applic topical BID Qty: 60 1RF Rx Instructions: apply liberal amount to affected areas of rash to breasts until resolved acetylcysteine [NAC] 600 mg capsule 600 mg PO .COMPLEX Rx Instructions: 600 mg PO as directed; administer with a meal Vraylar 1.5 mg capsule 1.5 mg PO DAILY Rx Instructions: as of 10/27/20 w/ permission from Dr. Pedersen via Kathya Stanley [facility] insulin aspart U-100 [Novolog FlexPen U-100 Insulin] 100 unit/mL (3 mL) insulin pen See Rx Instructions subcut AC Qty: 15 3RF Rx Instructions: 2-10u based on sliding scale before meals. calcium carbonate [Tums Freshers] 200 mg calcium (500 mg) tablet,chewable 200 mg PO DAILY PRN Rx Instructions: Discharge note 03/15/21 [facility] Eliquis 5 mg tablet 2.5 mg PO BID Qty: 180 3RF fosinopril 40 mg tablet 40 mg PO BID Rx Instructions: increased by [facility] 05/26/21 amlodipine 10 mg tablet 10 mg PO DAILY Qty: 90 3RF aspirin [Adult Aspirin Regimen] 81 mg tablet,delayed release (DR/EC) 81 mg PO DAILY Qty: 90 3RF omeprazole 40 mg capsule,delayed release(DR/EC) 40 mg PO DAILY Qty: 90 3RF carvedilol [Coreg] 12.5 mg tablet 12.5 mg PO BID Qty: 180 3RF Rx Instructions: must administer with a meal/food Increased by [facility] 05/26/21 (DME) pen needle, diabetic 31 gauge x 1/3 needle 1 ea Miscellaneous QID Qty: 100 3RF Rx Instructions: BD Ultrafine Vane 4mm/32G For DM E11.65 A1C<7 manage freq. hyperglycemic episodes atorvastatin 40 mg tablet 40 mg PO DAILY Qty: 90 3RF Discharge Instructions Instructions: Pelvic Fracture (ED) Additional Instructions: Weightbearing as tolerated. Use your walker as much as possible. Follow-up with orthopedics within the next week. We did speak with dialysis and they will see you today. The orthopedic office should call you however if you do not hear from them by M onday please give them a call to make an appointment for next week. Please take Tylenol with food every 4-6 hours as needed for pain and swelling. Referrals: Dell Lam MD [ [facility] STAFF PHYSICIAN] - 1 week Rosaura Fragoso NP [Primary Care Provider] - Medical Decision Making 61-year-old female presents to the ER with a chief complaint of left hip and left upper leg pain status post a slip and mechanical fall yesterday. Patient is due to have a unit of PRBCs infused at the infusion center this morning and then have dialysis at 1130. She reports that she is having trouble ambulating and getting around at home after the fall. She denies any neck or back pain denies any head injury or loss of consciousness. She does have distal pulses and good circulation to the extremity no obvious deformity shortening or rotation no ecchymosis or contusions noted. She has a past medical history congenital single kidney, type 2 diabetes mellitus, hyperlipidemia, chronic kidney disease stage IV bipolar, depression, hypertension, seizures she does have a history of a aortobifemoral bypass surgery and angioplasty she does have a pacemaker. XR left hip and left femur ordered.[place] Spoke with Dr. Lam he does not recommend CT at this time, weight bearing as tolerated with walker, I did discuss this with the patient she verbalizes understanding. CT canceled, Patient is complaining of additional pain however she does have multiple allergies to anesthesia on her allergy list. Tylenol unfortunately seems to be the only thing that she does not have an allergy to. Plan to discharge patient to dialysis with ortho follow up instructions, patient placed on Ortho follow up list. This text was generated using [employer] system, please disregard any oddities of phrase or misspellings. Imaging Data Radiologic Study: Imaging: X-Ray Radiologist's impression: CLINICAL HISTORY: Fall, R/O fracture. TECHNIQUE: 2D digital imaging was performed. Five images were obtained. COMPARISON: CR RT HIP COMPLETE AP PELVIS from 12/13/2014 CR XR FEMUR LT from 05/05/2022 FINDINGS: BONES: There appears to be cortical irregularity of the inferior left pubic ramus suspicious for nondisplaced fracture. The femur is intact. No bony destructive lesion is seen. JOINTS: No dislocation present. The sacroiliac joints and symphysis pubis are unremarkable. SOFT TISSUE: Normal. IMPRESSION: Findings suspicious for left inferior pubic ramus fracture. A CT scan of the pelvis is recommended for further evaluation. HPI General Mode of arrival: wheelchair . Date/Time Provider Initiated Documentation: 05/05/22 09:20 . Limitations to Documentation: no limitations . Information obtained by: patient, RN notes reviewed and old records reviewed . HPI Narrative: 61-year-old female presents to the ER with a chief complaint of left hip and left upper leg pain status post a slip and mechanical fall yesterday. Patient is due to have a unit of PRBCs infused at the infusion center this morning and then have dialysis at 1130. She reports that she is having trouble ambulating and getting around at home after the fall. She denies any neck or back pain denies any head injury or loss of consciousness. She does have distal pulses and good circulation to the extremity no obvious deformity shortening or rotation no ecchymosis or contusions noted. She has a past medical history congenital single kidney, type 2 diabetes mellitus, hyperlipidemia, chronic kidney disease stage IV bipolar, depression, hypertension, seizures she does have a history of a aortobifemoral bypass surgery and angioplasty she does have a pacemaker. Related Data Home Medications Medication Instructions Recorded Confirmed blood sugar diagnostic (Blood #300 ea 05/06/18 05/05/22 Glucose Test strips) lamotrigine 100 mg tablet 100 mg PO BID 05/09/18 05/05/22 lorazepam 1 mg tablet 1 mg PO HS 05/09/18 05/05/22 diaper,brief,adult,disposable #150 ea 07/25/18 05/05/22 (Adult Briefs - Large) benztropine 0.5 mg tablet 0.5 mg PO HS 03/06/19 05/05/22 multivitamin (Daily Multi-Vitamin 1 tab PO DAILY #90 tabs 05/15/19 05/05/22 tablet) cyanocobalamin (vitamin B-12) 500 500 mcg PO DAILY 08/05/19 05/05/22 mcg tablet (Vitamin B-12) nystatin 100,000 unit/gram topical 1 applic topical BID #60 grams 02/04/20 05/05/22 powder acetylcysteine 600 mg capsule (NAC) 600 mg PO BID 02/11/20 05/05/22 mirtazapine 15 mg tablet 15 mg PO QHS 02/11/20 05/05/22 sevelamer carbonate 800 mg tablet 800 mg PO TID 02/11/20 05/05/22 (Renvela) acetaminophen 500 mg tablet 1,000 mg PO BID PRN fever or pain 07/06/20 05/05/22 (Acetaminophen Extra Strength) acetylcysteine 600 mg capsule (NAC) 600 mg PO .COMPLEX 08/25/20 05/05/22 cariprazine 1.5 mg capsule 1.5 mg PO DAILY 10/27/20 05/05/22 (Vraylar) insulin aspart U-100 100 unit/mL See Rx Instructions subcut AC #15 12/16/20 05/05/22 (3 mL) subcutaneous pen (Novolog mL FlexPen U-100 Insulin aspart) calcium carbonate 200 mg calcium 200 mg PO DAILY PRN 03/18/21 05/05/22 (500 mg) chewable tablet (Tums Freshers) apixaban 5 mg tablet (Eliquis) 2.5 mg PO BID Decreased to 2.5 BID 05/05/21 05/05/22 07/14/19 per heme recommendati #180 tabs fosinopril 40 mg tablet 40 mg PO BID 05/30/21 05/05/22 amlodipine 10 mg tablet 10 mg PO DAILY #90 tabs 06/16/21 05/05/22 aspirin 81 mg tablet,delayed 81 mg PO DAILY #90 tabs 07/11/21 05/05/22 release (Adult Aspirin Regimen) omeprazole 40 mg capsule,delayed 40 mg PO DAILY #90 caps 07/11/21 05/05/22 release carvedilol 12.5 mg tablet (Coreg) 12.5 mg PO BID #180 tabs 09/08/21 05/05/22 pen needle, diabetic 31 gauge x #100 ea 02/27/22 05/05/2204/25 atorvastatin 40 mg tablet 40 mg PO DAILY #90 tabs 03/13/22 05/05/22 insulin glargine 100 unit/mL (3 16 unit subcut QAM 03/29/22 05/05/22 mL) subcutaneous pen (Basaglar KwikPen U-100 Insulin) meclizine 12.5 mg tablet 12.5 mg PO TID PRN dizziness #14 03/29/22 05/05/22 tabs Previous Rx's Medication Instructions Recorded blood sugar diagnostic (Blood #300 ea 05/06/18 Glucose Test strips) diaper,brief,adult,disposable #150 ea 07/25/18 (Adult Briefs - Large) multivitamin (Daily Multi-Vitamin 1 tab PO DAILY #90 tabs 05/15/19 tablet) nystatin 100,000 unit/gram topical 1 applic topical BID #60 grams 02/04/20 powder insulin aspart U-100 100 unit/mL See Rx Instructions subcut AC #15 12/16/20 (3 mL) subcutaneous pen (Novolog mL FlexPen U-100 Insulin aspart) apixaban 5 mg tablet (Eliquis) 2.5 mg PO BID Decreased to 2.5 BID 05/05/21 07/14/19 per heme recommendati #180 tabs amlodipine 10 mg tablet 10 mg PO DAILY #90 tabs 06/16/21 aspirin 81 mg tablet,delayed 81 mg PO DAILY #90 tabs 07/11/21 release (Adult Aspirin Regimen) omeprazole 40 mg capsule,delayed 40 mg PO DAILY #90 caps 07/11/21 release carvedilol 12.5 mg tablet (Coreg) 12.5 mg PO BID #180 tabs 09/08/21 pen needle, diabetic 31 gauge x #100 ea 02/27/2204/25 atorvastatin 40 mg tablet 40 mg PO DAILY #90 tabs 03/13/22 meclizine 12.5 mg tablet 12.5 mg PO TID PRN dizziness #14 03/29/22 tabs Allergies Allergy/AdvReac Type Severity Reaction Status Date / Time aripiprazole [From Abilify] Allergy Severe Verified 05/05/22 09:33 duloxetine HCl Allergy Severe Hives Verified 05/05/22 09:33 [From Cymbalta] oxycodone Allergy Severe Hives Verified 05/05/22 09:33 Sulfa (Sulfonamide Allergy Severe Skin Rash Verified 05/05/22 09:33 Antibiotics) amitriptyline Allergy Intermediate Verified 05/05/22 09:33 citalopram Allergy Intermediate HIVES Verified 05/05/22 09:33 fesoterodine Allergy Intermediate HIVES Verified 05/05/22 09:33 latex Allergy Intermediate Hives Verified 05/05/22 09:33 rabies vaccine, human Allergy Intermediate Verified 05/05/22 09:33 diploid cell [Rabies Vaccine,Human Diploid] Tetanus Vaccines and Toxoid Allergy Intermediate Swelling/Ed Verified 05/05/22 09:33 [Tetanus Vaccines & Toxoid] ghulam acetaminophen [From Vicodin] Allergy Unknown Verified 05/05/22 09:33 bupropion HCl Allergy Unknown Verified 05/05/22 09:33 [From Wellbutrin] celecoxib [From Celebrex] Allergy Unknown Verified 05/05/22 09:33 diazepam [From Valium] Allergy Unknown Verified 05/05/22 09:33 divalproex sodium Allergy Unknown Verified 05/05/22 09:33 [From Depakote] escitalopram oxalate Allergy Unknown Verified 05/05/22 09:33 [From Lexapro] fluoxetine HCl [From Prozac] Allergy Unknown Verified 05/05/22 09:33 fosphenytoin sodium Allergy Unknown Verified 05/05/22 09:33 [From Cerebyx] hydrocodone bitartrate Allergy Unknown Verified 05/05/22 09:33 [From Vicodin] morphine Allergy Unknown Verified 05/05/22 09:33 nicotine [From Nicoderm CQ] Allergy Unknown rash/hives Verified 05/05/22 09:33 paroxetine HCl [From Paxil] Allergy Unknown Verified 05/05/22 09:33 phenytoin sodium Allergy Unknown Verified 05/05/22 09:33 [From Dilantin] phenytoin sodium extended Allergy Unknown Verified 05/05/22 09:33 [From Dilantin] prednisone Allergy Unknown Verified 05/05/22 09:33 procaine HCl [From Novocain] Allergy Unknown Verified 05/05/22 09:33 quetiapine Allergy Unknown Verified 05/05/22 09:33 quetiapine fumarate Allergy Unknown Verified 05/05/22 09:33 [From Seroquel] risperidone [From Risperdal] Allergy Unknown Verified 05/05/22 09:33 sertraline Allergy Unknown Hives Verified 05/05/22 09:33 trazodone Allergy Unknown Verified 05/05/22 09:33 venlafaxine HCl Allergy Unknown Verified 05/05/22 09:33 [From Effexor] warfarin [From Coumadin] Allergy none Verified 05/05/22 09:33 listed on referral thiothixene [Thiothixene] AdvReac Severe Nausea Verified 05/05/22 09:33 topiramate AdvReac Intermediate Nausea Verified 05/05/22 09:33 gabapentin AdvReac Unknown Severe Verified 05/05/22 09:33 dizziness, runs; vomiting lidocaine AdvReac Unknown Nausea Verified 05/05/22 09:33 ibuprofen AdvReac headache Verified 05/05/22 09:33 and nausea melatonin AdvReac nightmares Verified 05/05/22 09:33 varenicline tartrate AdvReac Psychosis Verified 05/05/22 09:33 [From Chantix] ABSOLUTE CONTRAINDICATION AdvReac Severe Headache Uncoded 05/05/22 09:33 FOR MRI (disconnected RV pacer lead) general anesthia AdvReac Unknown Uncoded 05/05/22 09:33 General Stated Complaint: Orthopedic ASIM: 3 Review of Systems All systems reviewed & are unremarkable except as noted in HPI and below ENT Ears, Nose, Mouth, and Throat: Denies neck pain Musculoskeletal Musculoskeletal: Denies back pain, Denies deformity, Reports arthralgias (left hip) and Denies neck pain PFSH All Active Problems (Updated 05/05/22 @ 13:41 by Yamila Naqvi NP) Fracture of left inferior pubic ramus (Acute) Hyperlipidemia (Acute) 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 11/15/21 Decision from Transplant Eval that pt is not a candidate for kidney transplant Dysuria (Acute) Memory deficit (Acute) Solitary left kidney (Acute) Decreased GFR (Acute) Viral syndrome (Acute) Bilateral leg edema (Acute) Colonoscopy refused (Acute) Urinary incontinence (Acute 02/11/15) Urge incontinence (Chronic) Elevated cholesterol (Chronic) Fracture of radial neck, left, closed (Acute) H/O endarterectomy (Chronic) Non-adherence to medical treatment (Acute) Type 2 diabetes mellitus (Chronic) Sinus bradycardia (Chronic) S/p pacemaker. [place] [facility] [place] Pocket revision & new RV lead 10/2014 [facility] Postmenopausal (Chronic) LMP ~2004 Paranoia (Chronic 12/19/16) Meralgia paresthetica, right lower limb (Chronic 11/05/15) Dr. 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 Congenital single kidney (Chronic 03/08/15) by xray from [facility] 03/17/09 in scanned records Adult BMI > 30 (Chronic 06/07/15) Medical History Bipolar 1 disorder Depression End stage renal disease 07/21/20 [facility] [place] patient Hypertension (~06/20/19) Goal <130/80 [facility] Pacemaker (10/22/14) for bradycardia and sinus node dysfunction DDD pacer 2004 in [place] Medtronic dual lead programmed VVI - PG replaced [place]/01/2014 [facility] Old RV lead abandoned PAD (peripheral artery disease) (08/13/17) PTSD (post-traumatic stress disorder) (05/28/17) Seizure Sinus node dysfunction (10/22/14) Stroke R parietal; asymptomatic; Type 2 diabetes mellitus with diabetic polyneuropathy Surgical History aortobifemoral bypass (09/07/17) [facility] vascular. August 2017 section (~1985) Pacemaker (~2004) [place] S/P angioplasty (01/30/18) left femoral endarterectomy and patch angioplasty, Aortogram, Over the wire Left ABF graft thrombectomy, Open ledt ABF thrombectomy, left ABF graft stent (VBX 8x39) S/P aortobifemoral bypass surgery Family History Mother No problems noted. Father No problems noted. Sister No problems noted. Social History Smoking/Tobacco Use Status: Former Tobacco Use Quit Date: 03/03/21 Pack-years: 36 Smoking risk assessment performed?: Yes Alcohol Intake: never Drug use: Never Substance use type: does not use Adopted: No Number of Children: 1 Do you need help understanding health information?: Always current occupation: disabliilty What type of physical activity do you participate in: walking Duration: 15-30 minutes/day Frequency: 3-4 times per week Do you feel safe at home: Yes Do you feel safe in your relationship?: Yes Exam Narrative Exam Narrative: General: Well Developed, Awake and Alert, conversant. Skin: Warm and Dry HEENT: Head: No palpable deformities, Normocephalic Eyes: Pupils PERRLA, EOM's intact. No periorbital eccymosis or step off Ears: Canal patent. Tympanic membranes are clear . No koenig's sign, no hemptympanum. Nose/Face: Atraumatic. Facial bones nontender to palpation and stable with manipulation. Mouth/Throat: No intraoral trauma. Teeth and mandible are intact. Neck: No midline tenderness, no step off, no deformity to palpation of C-spine. Trachea midline. Chest: No surface trauma. Nontender without crepitus or deformity. Lungs clear to ausculatation bilaterally. Heart: RRR, no rubs, murmurs or gallop. Abdomen: No abrasions, ecchymosis, or surface trauma. Nondistended. Nontender to palpation no guarding, rebound, or rigidity. Pelvis: Tender to palpatiopn on left.Pelvis stable. Femoral pulses strong and equal Extremities: no surface trauma. Sensation intact. Peripheral pulses intact and equal. Neuro: ANO x4, GCS 15, cranial nerves II through XII intact. Motor and sensory exam nonfocal. Reflexes are symmetric. Course Vital Signs Vital signs: Vital Signs Temperature 36.6 C 05/05/22 09:29 Pulse 64 05/05/22 09:29 Respiratory Rate 18 05/05/22 09:29 Blood Pressure 152/59 H 05/05/22 09:29 Pulse Oximetry 94 05/05/22 09:29 Temperature 36.6 C 05/05/22 09:29 Temperature Source Temporal Artery Scan 05/05/22 09:29 Pulse 64 05/05/22 09:29 Respiratory Rate 18 05/05/22 09:29 Respiratory Effort Non-Labored 05/05/22 09:34 Blood Pressure 152/59 H 05/05/22 09:29 Pulse Oximetry 94 05/05/22 09:29 Oxygen Delivery Method Room Air 05/05/22 09:29 Oxygen Flow Rate 0 05/05/22 09:29
[2022-05-05] MEDS: Acetaminophen 325 MG TAB 650 MG PO (09:50)
--- NOTE | 2022-05-05 11:02 | NUR.NOTE ---
Nursing Note: LAB IN TO DRAW BLOOD, PT DENIES CURRENT COMPLAINTS, REPOSITIONED IN BED, AWAITING X-RAY AT THIS TIME.
--- NOTE | 2022-05-05 11:30 | NUR.NOTE ---
Nursing Note: PT TO DI VIA STRETCHER FOR ORDERED EXAM, NO COMPLAINTS AT THIS TIME.
== END 2022-05-05 15:01 | disposition home or self-care (01) ==
PROVIDERS: Emergency Provider Registered Nurse Emergency; PCP Nurse Practitioner
DX: S32.592A Other specified fracture of left pubis, initial encounter for closed fracture (principal); W01.0XXA Fall on same level from slipping, tripping and stumbling without subsequent striking against object, initial encounter; Y92.009 Unspecified place in unspecified non-institutional (private) residence as the place of occurrence of the external cause; Y99.8 Other external cause status; E11.22 Type 2 diabetes mellitus with diabetic chronic kidney disease; N18.6 End stage renal disease; I12.0 Hypertensive chronic kidney disease with stage 5 chronic kidney disease or end stage renal disease; E11.42 Type 2 diabetes mellitus with diabetic polyneuropathy
CPT/HCPCS: 36415; 36430; 73552; 86850; 86900; 86901; 86920; 99284; 72170; P9016

== ENCOUNTER 2022-06-06 09:07 | Emergency (ER) | payer MEDICARE, MEDICAID, SELFPAY ==
[2022-06-06 09:44] VITALS: BP 133/72; PULSE 62; RESP 20; TEMP 36.9; O2SAT 95
--- NOTE | 2022-06-06 09:49 | NUR.NOTE ---
Port dressing changed under sterile technique. no active bleeding noted, blood clot in place left intact. Patient decided to go to PCP for further treatment.
--- NOTE | 2022-06-06 16:13 | NUR.NOTE ---
Nursing Note: left without being seen
== END 2022-06-06 09:54 ==
LOC: ER 09:48
PROVIDERS: PCP Nurse Practitioner
DX: Z53.21 Procedure and treatment not carried out due to patient leaving prior to being seen by health care provider (principal)

== ENCOUNTER 2022-06-07 15:12 | Outpatient (REF) | payer MEDICARE, MEDICAID, SELFPAY ==
[2022-06-07 13:24] LABS: Bilirubin Negative (Negative); Blood Small (Negative); Clarity Turbid (Clear); Glucose Negative (Negative); Ketones Trace mg/dL (Negative); Leukocyte Esterase Large (Negative); Nitrite Negative (Negative); Specific Gravity >= 1.030 (1.005-1.025); Urobilinogen 0.2 EU/dL (Up TO 0.2); pH 6.5 (5-8)
[2022-06-07 13:33] LABS: C & S Indicated? Yes; WBC >50 HPF (0-5)
== END 2022-06-07 15:13 | disposition home or self-care (01) ==
LOC: LBN 15:12
PROVIDERS: PCP Nurse Practitioner; Visit Provider Nurse Practitioner
DX: R30.0 Dysuria (principal); R82.998 Other abnormal findings in urine
CPT/HCPCS: 81003; 81015; 87086

== ENCOUNTER 2022-06-17 16:10 | Emergency (ER) | payer MEDICARE, MEDICAID, SELFPAY ==
[2022-06-17] VITALS (43 sets, daily range): BP systolic 136–158; BP diastolic 54–105; PULSE 71–119; RESP 6–24; TEMP 37.1–37.5; O2SAT 94–96
--- NOTE | 2022-06-17 16:15 | RT.EKG_ITS ---
APPROVED REPORT Exam: Resting ECG Reason for Exam: [facility] Patient Location: E HR:76 bpm ECG Measurements Heart Rate 76 AXIS UT 155 P 70 QRSd 103 QRS -58 QT 408 T 27 QTc 460 Conclusion Sinus rhythm Probable left atrial enlargement LVH with secondary repolarization abnormality.
--- NOTE | 2022-06-17 16:15 | DI.CT_ITS ---
Exam(s) CT HEAD WO EXAM: CT HEAD WO CLINICAL HISTORY: AMS. TECHNIQUE: Imaging Protocol: Axial computed tomography images with coronal and sagittal reformatted images were created and reviewed COMPARISON: CT CT HEAD WO from 12/18/2021 FINDINGS: The examination is limited due to patient motion artifact. Ventricles and Extra axial spaces: Normal in size and morphology for the patient's age. Hemorrhage: None. Cerebral parenchyma: No acute territorial infarct is present. There are areas of decreased attenuati on in the white matter consistent with small vessel ischemic disease. There is an area of encephalom alacia again seen in the right parietal lobe. Midline shift: None. Brainstem/Cerebellum: Normal. Calvarium: Normal. Visualized Paranasal sinuses/Mastoids: Clear. Soft Tissues: Unremarkable. IMPRESSION: No acute intracranial process. RADIATION DOSE DELIVERED: 661.18mGy.cm Total DLP DATA REPOSITORY: All CT scans at this facility are submitted to the National Radiology Data Registry (NRDR) Dose Index Registry (DIR) with the [employer] ([employer]). RADIATION OPTIMIZATION: All CT scans at this facility use at least one of these dose optimization te chniques: automated exposure control; mA and/or kV adjustment per patient size (includes targeted exa ms where dose is matched to clinical indication); or iterative reconstruction.
--- NOTE | 2022-06-17 16:23 | ED.GENADUL_ITS ---
Discharge Plan Disposition Patient Disposition: Transfer-Acute Inpatient Care Specific Acute Inpt Facility: [facility] Discharge Details Clinical Impression: UTI (urinary tract infection), Acute delirium Primary Care Provider: Rosaura Fragoso ED Provider: Sera Zhao Meds and New Rx's Prescriptions: No Action mirtazapine 15 mg tablet 15 mg PO QHS sevelamer carbonate [Renvela] 800 mg tablet 800 mg PO TID Rx Instructions: must administer with a meal/food acetylcysteine [NAC] 600 mg capsule 600 mg PO BID acetaminophen [Acetaminophen Extra Strength] 500 mg tablet 1,000 mg PO BID PRN (Reason: fever or pain) meclizine 12.5 mg tablet 12.5 mg PO TID PRN (Reason: dizziness) Qty: 14 0RF amlodipine 10 mg tablet 5 mg PO DAILY insulin glargine [Basaglar KwikPen U-100 Insulin] 100 unit/mL (3 mL) insulin pen 25 unit subcut QAM Qty: 21 3RF (DME) Blood Glucose Test strip See Dose Instructions .ROUTE .MEDSUPPLY Qty: 300 3RF Dose Instruction: As directed Rx Instructions: Test TID (DME) Adult Briefs - Large misc See Dose Instructions .ROUTE .MEDSUPPLY Qty: 150 12RF Dose Instruction: As directed Rx Instructions: Change as directed lamotrigine 100 mg tablet 100 mg PO BID Patient Comments: Increased to bid at [place] d/c lorazepam 1 mg tablet 1 mg PO HS Patient Comments: may also take 0.5mg once daily if needed. (reported progress note XOCHILTKHKade 05/02/18) benztropine 0.5 mg tablet 0.5 mg PO HS Rx Instructions: Note dated 02/13/19 [facility] multivitamin [Daily Multi-Vitamin] Tablet 1 tab PO DAILY Qty: 90 3RF cyanocobalamin (vitamin B-12) [Vitamin B-12] 500 mcg tablet 500 mcg PO DAILY nystatin 100,000 unit/gram powder 1 applic topical BID Qty: 60 1RF Rx Instructions: apply liberal amount to affected areas of rash to breasts until resolved Vraylar 1.5 mg capsule 1.5 mg PO DAILY Rx Instructions: as of 10/27/20 w/ permission from Dr. Pedersen via [facility] [place], [place] insulin aspart U-100 [Novolog FlexPen U-100 Insulin] 100 unit/mL (3 mL) insulin pen See Rx Instructions subcut AC Qty: 15 3RF Rx Instructions: 2-10u based on sliding scale before meals. calcium carbonate [Tums Freshers] 200 mg calcium (500 mg) tablet,chewable 200 mg PO DAILY PRN Rx Instructions: Discharge note 03/15/21 [facility] [place]osinopril 40 mg tablet 40 mg PO BID Rx Instructions: increased by [facility] 05/26/21 aspirin [Adult Aspirin Regimen] 81 mg tablet,delayed release (DR/EC) 81 mg PO DAILY Qty: 90 3RF omeprazole 40 mg capsule,delayed release(DR/EC) 40 mg PO DAILY Qty: 90 3RF carvedilol [Coreg] 12.5 mg tablet 12.5 mg PO BID Qty: 180 3RF Rx Instructions: must administer with a meal/food Increased by [facility] 05/26/21 (DME) pen needle, diabetic 31 gauge x 1/3 needle 1 ea Miscellaneous QID Qty: 100 3RF Rx Instructions: BD Ultrafine Vane 4mm/32G For DM E11.65 A1C<7 manage freq. hyperglycemic episodes atorvastatin 40 mg tablet 40 mg PO DAILY Qty: 90 3RF Eliquis 5 mg tablet See Rx Instructions .ROUTE .COMPLEX Qty: 90 1RF Dose Instruction: TAKE 1/2 TABLET BY MOUTH TWO TIMES A DAY Rx Instructions: TAKE 1/2 TABLET BY MOUTH TWO TIMES A DAY Discharge Data Discharge Date/Time-TO BE ENTERED AT DEPARTURE: 06/17/22 23:49 Medical Decision Making Patient is a pleasantly confused, brought in via EMS, with c/c of fever, confusion. Patient is not able to state the day, month or where she is. She is oriented to self. She does have a new dialysis port noted on the right upper chest. Patient reports that she has diffuse body aches. No change in bowel habits per her report. Denies any headache currently. Denies any neck pain. History is limited secondary to her acute confusion. On exam, patient appears confused and anxious. She is hemodynamically stable. Her lungs are clear, normal cardiac exam. She does appear slightly dry on exam. We will give a very small bolus that she is a dialysis patient due to 50 cc of fluid. She does have some discomfort in her abdomen, primarily along the right lower and lower middle aspect of her abdomen. She does not have any lower extremity edema. She is able to move all of her extremities equal bilaterally. No cranial nerve dysfunction noted. Chart review shows medical history of bipolar, depression, end-stage renal disease, hypertension, PAD, PTSD, pacemaker, type 2 diabetes, EMS reported glucose of 150, elevated cholesterol. Spoke with patient's home care provider, Mikayla, states that patient had dialysis as typical yestreday. When she went to her house to check on her this AM, noted her to be confused, have decreased appetite, difficulty with administering her own meds which is atypical. States she napped, continued to be confused. After, had episode of emesis. Had fever with T max of 104. States they gave her APAP. Had port placed at 2 weeks ago for her dialysis. Had been off of dialysis x 1 week after surgery but had normal schedule this past week. She states that patient does not make urine, may have small amount out ever 4 days. Concered for infectious etiology. She denies FRANCISCO, no nuchal rigidity. No indication of COUNTER INTELLIGENCE TECHNICIAN infeftion at this time. No cough but possible URI, pneumonia, UTI. She does have some abdominal pain, will obtain imaging. Will also obtain imaging of her head as she has had acute change with mental status. She does not have focal deficits to suggest CVA at this time. The fever and AMS more likely infectious etiology. Will obtain CBC, CMP, lactate, procalcitonin, upper respiratory viral panel and urinalysis. Do not see evidence to suggest ACS at this time, considered endorgan damage in the setting of acute infection and will obtain ECG and troponin. FINDINGS: Lungs: Mild segmental airspace consolidation of the posteroinferior right lower lobe. This may represent a developing infiltrate or atelectasis. There are features of mild COPD and emphysema of the lungs. There is respiratory motion artifact degrading image quality. Pleural spaces: No pleural effusion. Heart: Mild cardiac enlargement. Pacemaker. No pericardial effusion. No coronary artery atherosclerotic calcium is evident. Lymph nodes: Unremarkable. No enlarged lymph nodes. Vasculature: Unremarkable. No aortic aneurysm.? Bones/joints: Thoracic skeletal structures are unremarkable. There is degenerative thoracic spine change. No acute features. Right chest wall tunneled dialysis catheter is in position. Tip enters the superior aspect of the right atrium. Soft tissues: Chest wall soft tissues are unremarkable. IMPRESSION: 1. ? Posterior right lung base segmental airspace consolidation may represent developing infiltrate or atelectasis. 2. ? Mild COPD and emphysema changes. 3. ? Mild cardiac enlargement. Pacemaker. 4. ? Right chest tunneled dialysis catheter with tip in right atrium. FINDINGS: Liver: Liver echogenicity is unremarkable. Mild nodularity of liver surface suggesting cirrhosis. Slightly small liver size. Gallbladder and bile ducts: Large gallstone within the gallbladder. Gallbladder is contracted. No gallbladder wall thickening. No biliary dilatation. Pancreas: Pancreatic atrophy of a severe nature. There are calcifications in the region of the residual parenchyma of the pancreatic head and uncinate process. These findings suggest chronic pancreatitis disease. Spleen: Splenomegaly. Cephalo caudal length of spleen is 13.8 cm. There is an upper pole splenic subcapsular low-attenuation focus measuring 4.4 x 2.8 cm. This is likely a splenic cyst. Ultrasound correlation is suggested. This is not evident on a prior study from 2018. Adrenal glands: Adrenal glands are unremarkable. Kidneys and ureters: Right kidney is not visible. Left kidney shows moderate atrophy. No acute features. Stomach and bowel: Gastric morphology is unremarkable. No edema. No gastric outlet obstruction. Small bowel loops are unremarkable as visualized. Large bowel loops are unremarkable as visible. Appendix: No evidence of appendicitis. Intraperitoneal space: No gross ascites. No free air. Vasculature: Previous aorto bi femoral bypass. No contrast has been administered. Lymph nodes: Unremarkable. No enlarged lymph nodes. Urinary bladder: Unremarkable as visualized. Reproductive: The uterus and adnexa are unremarkable in appearance. There are no dominant adnexal cysts or masslike features. There are no inflammatory features. No uterine mass evident. Bones/joints: Left inferior pubic ramus fracture. This is age indeterminate. See series 2, image 127. There is also a superior pubic ramus fracture at the junction with the left anterior acetabulum. Also age indeterminate. A fractures also noted of the left sacral ala without displacement. These may be subacute. Recommend clinical correlation. Soft tissues: Unremarkable. IMPRESSION: 1. ? Fractures of the left superior and inferior pelvic pubic rami. Age indeterminate. Possibly subacute. There is also a fracture of the left sacral ala without displacement. 2. ? Splenomegaly. Splenic low-attenuation 4.4 cm focus may represent a cyst. Recommend splenic ultrasound. This was not present 2018. 3. ? Pancreatic atrophy. Chronic pancreatitis features with multiple pancreatic calcifications. 4. ? Gallstone within a contracted gallbladder. No ductal dilatation. 5. ? No acute liver pathology. Mild nodular surface which could represent cirrhosis. Patient is not having any pelvic pain, likely these fx are subacute. Patient has no epigastric or LUQ pain. Assisted nursing with straight cath, bladder wall did look thickened to me on CT, her urine appearance is very concerning for UTI. Will begin abx. Will give Meropenem. With her confusion, weakness and difficulty with ADLS, concerned about sending patient hoome. Will consult with [facility] about transfer to their faciliyt as they typically guide her HD care. I do not see need for HD emergently at this time. Labs reviewed, patient has a white count of 15.2. Hemoglobin is 11, this is uptrending from 8.8. Lactate within normal limits at 0.9. Her potassium is sli ghtly low at 3.4. Creatinine is elevated at 5.4. Glucose 125. Alk phos elevated at 229, patient has had this elevated historically. Troponin within normal limits. TSH within normal limits. Procalcitonin within normal limits. UA consistent with UTI. Elevated protein, moderate blood, leukocyte esterases positive, WBC present, moderate bacteria with rare epithelial cells. Negative for COVID, flu, RSV. Patient continues to be acutely confused. She is oriented to person that is all. Has been intermittently crying, asking for her mom believing she is in different areas. Findings suggestive of acute delirium. Given her acute state, do not feel that patient is safe to be discharged home and feel that she should be admitted for continued care and IV antibiotics for UTI. As patient ty pically receives dialysis, will reach out to [facility] regarding possible admission. [facility] does not have bed availability. They advised that no other hospitals in their network have HD capabilities. They will call back, questioning if they could do down/back for her typical HD treatments. They advised that they are trying to accomodate more out of hospital HD for their patients as inpatient beds are tight. [facility] called back and advised that they were able to speak with the acquisitions librarian on-call, Dr. Solano, who coincidentally is the patient's acquisitions librarian as well as the pediatrician/medical doctor of the local hemodialysis center. He advised that he will arrange for the patient to have a down and back procedure on Sunday. They advised that we can also follow-up via phone on but that they will ensure down back hemodialysis is possible for this patient. Again, at this time I do not see need for emergent hemodialysis particular she had her dialysis yesterday. Consulted with our hospitalist and will need to speak with care management after speaking with apartment house manager regarding admitting patient with no need for hemodialysis. Spoke with care management, apartment house manager. Admistor chuck wagon driver does not feel that she should be admitted here even if HD plan can be established. Called [facility], no beds available. Called [place], [facility], [facility], [facility], [facility], [place] and they are not able to accept. Speaking with hospitalist at [facility]. Dr. Jarvis able to accept patient for UTI and acute delirium. She remains confused but hemodynamically stable. She has received a 250 cc bolus. Did have some small amount of p.o. intake. Has been sleeping intermittently. Received her p.m. meds. Will transfer via EMS to the [facility]. HPI General Date/Time Provider Initiated Documentation: 06/17/22 16:23 . Limitations to Documentation: altered mental status . Information obtained by: patient, family (home care provider, Mikayla), EMS, RN notes reviewed and old records reviewed . History of Present Illness 61 year old F presents to the emergency department with the chief complaint of AMS, fever, described as moderate, Quality is described as aching (patient dolores cribes diffuse body aches), Patient started experiencing this hour(s) (noted to be altered started this AM per home care provider) and it has been constant. No relieving factors improve symptom(s), No exacerbating factors reported . Patient notes fever/chills, loss of appetite, malaise, nausea/vomiting and weakness (generalized); denies chest pain, cough, headaches, rash and shortness of breath. Patient did receive the following treatments prior to arrival, other (apap) Related Data Home Medications Medication Instructions Recorded Confirmed blood sugar diagnostic (Blood #300 ea 05/06/18 06/17/22 Glucose Test strips) lamotrigine 100 mg tablet 100 mg PO BID 05/09/18 06/17/22 lorazepam 1 mg tablet 1 mg PO HS 05/09/18 06/17/22 diaper,brief,adult,disposable #150 ea 07/25/18 06/17/22 (Adult Briefs - Large) benztropine 0.5 mg tablet 0.5 mg PO HS 03/06/19 06/17/22 multivitamin (Daily Multi-Vitamin 1 tab PO DAILY #90 tabs 05/15/19 06/17/22 tablet) cyanocobalamin (vitamin B-12) 500 500 mcg PO DAILY 08/05/19 06/15/22 mcg tablet (Vitamin B-12) nystatin 100,000 unit/gram topical 1 applic topical BID #60 grams 02/04/20 06/17/22 powder acetylcysteine 600 mg capsule (NAC) 600 mg PO BID 02/11/20 06/17/22 mirtazapine 15 mg tablet 15 mg PO QHS 02/11/20 06/17/22 sevelamer carbonate 800 mg tablet 800 mg PO TID 02/11/20 06/17/22 (Renvela) acetaminophen 500 mg tablet 1,000 mg PO BID PRN fever or pain 07/06/20 06/17/22 (Acetaminophen Extra Strength) cariprazine 1.5 mg capsule 1.5 mg PO DAILY 10/27/20 06/17/22 (Vraylar) insulin aspart U-100 100 unit/mL See Rx Instructions subcut AC #15 12/16/20 06/17/22 (3 mL) subcutaneous pen (Novolog mL FlexPen U-100 Insulin aspart) calcium carbonate 200 mg calcium 200 mg PO DAILY PRN 03/18/21 06/17/22 (500 mg) chewable tablet (Tums Freshers) fosinopril 40 mg tablet 40 mg PO BID 05/30/21 06/17/22 aspirin 81 mg tablet,delayed 81 mg PO DAILY #90 tabs 07/11/21 06/17/22 release (Adult Aspirin Regimen) omeprazole 40 mg capsule,delayed 40 mg PO DAILY #90 caps 07/11/21 06/15/22 release carvedilol 12.5 mg tablet (Coreg) 12.5 mg PO BID #180 tabs 09/08/21 06/17/22 pen needle, diabetic 31 gauge x #100 ea 02/27/22 06/17/22 1/3 atorvastatin 40 mg tablet 40 mg PO DAILY #90 tabs 11/21/22 02/25/23 meclizine 12.5 mg tablet 12.5 mg PO TID PRN dizziness #14 03/29/22 06/15/22 tabs amlodipine 10 mg tablet 5 mg PO DAILY 05/18/22 06/17/22 insulin glargine 100 unit/mL (3 25 unit (0.25 mL) subcut QAM #21 mL 05/18/22 06/15/22 mL) subcutaneous pen (Basaglar KwikPen U-100 Insulin) apixaban 5 mg tablet (Eliquis) See Rx Instructions .Route 05/29/22 06/17/22 .COMPLEX #90 tabs Previous Rx's Medication Instructions Recorded blood sugar diagnostic (Blood #300 ea 05/06/18 Glucose Test strips) diaper,brief,adult,disposable #150 ea 07/25/18 (Adult Briefs - Large) multivitamin (Daily Multi-Vitamin 1 tab PO DAILY #90 tabs 05/15/19 tablet) nystatin 100,000 unit/gram topical 1 applic topical BID #60 grams 02/04/20 powder insulin aspart U-100 100 unit/mL See Rx Instructions subcut AC #15 12/16/20 (3 mL) subcutaneous pen (Novolog mL FlexPen U-100 Insulin aspart) aspirin 81 mg tablet,delayed 81 mg PO DAILY #90 tabs 07/11/21 release (Adult Aspirin Regimen) omeprazole 40 mg capsule,delayed 40 mg PO DAILY #90 caps 07/11/21 release carvedilol 12.5 mg tablet (Coreg) 12.5 mg PO BID #180 tabs 09/08/21 pen needle, diabetic 31 gauge x #100 ea 02/27/2204/25 atorvastatin 40 mg tablet 40 mg PO DAILY #90 tabs 03/13/22 meclizine 12.5 mg tablet 12.5 mg PO TID PRN dizziness #14 03/29/22 tabs insulin glargine 100 unit/mL (3 25 unit (0.25 mL) subcut QAM #21 mL 05/18/22 mL) subcutaneous pen (Basaglar KwikPen U-100 Insulin) apixaban 5 mg tablet (Eliquis) See Rx Instructions .Route 05/29/22 .COMPLEX #90 tabs Allergies Allergy/AdvReac Type Severity Reaction Status Date / Time [facility] Allergy Severe Verified 06/17/22 16:16 duloxetine HCl Allergy Severe Hives Verified 06/17/22 16:16 [From Cymbalta] oxycodone Allergy Severe Hives Verified 06/17/22 16:16 Sulfa (Sulfonamide Allergy Severe Skin Rash Verified 06/17/22 16:16 Antibiotics) amitriptyline Allergy Intermediate Verified 06/17/22 16:16 citalopram Allergy Intermediate HIVES Verified 06/17/22 16:16 fesoterodine Allergy Intermediate HIVES Verified 06/17/22 16:16 latex Allergy Intermediate Hives Verified 06/17/22 16:16 rabies vaccine, human Allergy Intermediate Verified 06/17/22 16:16 diploid cell [Rabies Vaccine,Human Diploid] Tetanus Vaccines and Toxoid Allergy Intermediate Swelling/Ed Verified 06/17/22 16:16 [Tetanus Vaccines & Toxoid] ghulam acetaminophen [From Vicodin] Allergy Unknown Verified 06/17/22 16:16 bupropion HCl Allergy Unknown Verified 06/17/22 16:16 [From Wellbutrin] celecoxib [From Celebrex] Allergy Unknown Verified 06/17/22 16:16 diazepam [From Valium] Allergy Unknown Verified 06/17/22 16:16 divalproex sodium Allergy Unknown Verified 06/17/22 16:16 [From Depakote] escitalopram oxalate Allergy Unknown Verified 06/17/22 16:16 [From Lexapro] fluoxetine HCl [From Prozac] Allergy Unknown Verified 06/17/22 16:16 fosphenytoin sodium Allergy Unknown Verified 06/17/22 16:16 [From Cerebyx] hydrocodone bitartrate Allergy Unknown Verified 06/17/22 16:16 [From Vicodin] morphine Allergy Unknown Verified 06/17/22 16:16 nicotine [From Nicoderm CQ] Allergy Unknown rash/hives Verified 06/17/22 16:16 paroxetine HCl [From Paxil] Allergy Unknown Verified 06/17/22 16:16 phenytoin sodium Allergy Unknown Verified 06/17/22 16:16 [From Dilantin] phenytoin sodium extended Allergy Unknown Verified 06/17/22 16:16 [From Dilantin] prednisone Allergy Unknown Verified 06/17/22 16:16 procaine HCl [From Novocain] Allergy Unknown Verified 06/17/22 16:16 quetiapine Allergy Unknown Verified 06/17/22 16:16 quetiapine fumarate Allergy Unknown Verified 06/17/22 16:16 [From Seroquel] risperidone [From Risperdal] Allergy Unknown Verified 06/17/22 16:16 sertraline Allergy Unknown Hives Verified 06/17/22 16:16 trazodone Allergy Unknown Verified 06/17/22 16:16 venlafaxine HCl Allergy Unknown Verified 06/17/22 16:16 [From Effexor] warfarin [From Coumadin] Allergy none Verified 06/17/22 16:16 listed on referral thiothixene [Thiothixene] AdvReac Severe Nausea Verified 06/17/22 16:16 topiramate AdvReac Intermediate Nausea Verified 06/17/22 16:16 gabapentin AdvReac Unknown Severe Verified 06/17/22 16:16 dizziness, runs; vomiting lidocaine AdvReac Unknown Nausea Verified 06/17/22 16:16 ibuprofen AdvReac headache Verified 06/17/22 16:16 and nausea melatonin AdvReac nightmares Verified 06/17/22 16:16 varenicline tartrate AdvReac Psychosis Verified 06/17/22 16:16 [From Chantix] ABSOLUTE CONTRAINDICATION AdvReac Severe Headache Uncoded 06/17/22 16:16 FOR MRI (disconnected RV pacer lead) general anesthia AdvReac Unknown Uncoded 06/17/22 16:16 General Stated Complaint: AMS/LOC ASIM: 3 Review of Systems Narrative: Unable to obtain secondary to current altered mental status PFSH All Active Problems (Updated 06/17/22 @ 21:41 by SARA Del Castillo) UTI (urinary tract infection) (Acute) Acute delirium (Acute) Atherosclerosis of artery of both lower extremities (Acute) 06/08/22 [facility] DP - podiatry visit Reticulocytopenia (Acute) Elevated ferritin (Acute) Dialysis patient (Acute) Fracture of ramus of left pubis (Acute) Hyperlipidemia (Acute) 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 11/15/21 Decision from Transplant Eval that pt is not a candidate for kidney transplant Dysuria (Acute) Memory deficit (Acute) Solitary left kidney (Acute) Decreased GFR (Acute) Viral syndrome (Acute) Bilateral leg edema (Acute) Colonoscopy refused (Acute) Urinary incontinence (Acute 02/11/15) Urge incontinence (Chronic) Elevated cholesterol (Chronic) Fracture of radial neck, left, closed (Acute) H/O endarterectomy (Chronic) Non-adherence to medical treatment (Acute) Type 2 diabetes mellitus (Chronic) Sinus bradycardia (Chronic) S/p pacemaker. Generator change 12/2013 [facility] Pocket revision & new RV lead 10/2014 [facility] [place]. Postmenopausal (Chronic) LMP ~2004 Paranoia (Chronic 12/19/16) Meralgia paresthetica, right lower limb (Chronic 11/05/15) Dr. 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 Congenital single kidney (Chronic 03/08/15) by xray from [facility] 03/17/09 in scanned records Adult BMI > 30 (Chronic 06/07/15) Medical History (Updated 06/17/22 @ 21:41 by SARA Del Castillo) Bipolar 1 disorder Depression End stage renal disease 07/21/20 [facility] [place] Hemodialysis patient Hypertension (~06/20/19) Goal <130/80 [facility] Onychomycosis 06/08/22 [facility] DPM Pacemaker (10/22/14) for bradycardia and sinus node dysfunction DDD pacer 2004 in [place] Medtronic dual lead programmed VVI - PG replaced 01/01/2014 [facility] [place] Old RV lead abandoned PAD (peripheral artery disease) (08/13/17) PTSD (post-traumatic stress disorder) (05/28/17) Seizure Sinus node dysfunction (10/22/14) Stroke R parietal; asymptomatic; Toe pain, bilateral 06/08/22 Rd Uriarte DPM Type 2 diabetes mellitus with diabetic polyneuropathy Surgical History aortobifemoral bypass (09/07/17) [facility] vascular. August 2017 section (~1985) Pacemaker (~2004) [facility] S/P angioplasty (01/30/18) left femoral endarterectomy and patch angioplasty, Aortogram, Over the wire Left ABF graft thrombectomy, Open ledt ABF thrombectomy, left ABF graft stent (VBX 8x39) S/P aortobifemoral bypass surgery Family History Mother No problems noted. Father No problems noted. Sister No problems noted. Social History Smoking/Tobacco Use Status: Former Tobacco Use Quit Date: 03/03/21 Pack-years: 37 Smoking risk assessment performed?: Yes Alcohol Intake: never Drug use: Never Substance use type: does not use Adopted: No Number of Children: 1 Do you need help understanding health information?: Always current occupation: disabliilty What type of physical activity do you participate in: walking Duration: 15-30 minutes/day Frequency: 3-4 times per week Do you feel safe at home: Yes Do you feel safe in your relationship?: Yes Exam Const General: cooperative, no acute distress, well developed, anxious, frail appearing and ill appearing acutely and chronically Nutritional Appearance: overweight Orientation: awake, oriented to person, not oriented to place, not oriented to time and confused [facility] Head: normal to inspection and no palpable skull fracture Ears: hearing grossly normal bilaterally, TM's normal bilaterally and mastoids normal Face and sinus: normal facial exam, sinuses nontender and face symmetric Mouth: oral mucosae normal, tongue normal and mucous membranes dry (appears dry) Teeth and gingiva: dentition normal (upper dentures) Eyes General: appearance normal, both eyes and all related structures Alignment and Position: alignment normal Pupils: PERRL, normal by confrontation and accommodation normal EOM: EOM intact bilaterally Neck Neck: normal visual inspection, full ROM, no lymphadenopathy and no meningeal signs Chest Chest: normal inspection of the chest and normal palpation of entire chest wall Resp Effort & Inspection: normal respiratory effort, able to speak in complete sentences and no respiratory distress Auscultation: clear to auscultation bilaterally, no rales, no rhonchi and no wheezes Cardio Rate: regular rate Rhythm: regular rhythm Heart Sounds: S1 normal and S2 normal GI Inspection: normal to inspection and abdominal wall ecchymosis (small ecchymotic areas consistent with injection areas) Palpation: soft, no hepatosplenomegaly, no guarding, no masses, not rigid and tender (RLQ and central lower abdomen) not in the epigastrum, not at McBurney's point, Infante's sign negative and with no rebound tenderness Percussion: normal to percussion Auscultation: hypoactive bowel sounds External Female Exam: normal external appearance and normal appearance of the urethra Back/Spine/Pelvis Back: no CVA tenderness Skin General skin exam: no rashes or lesions noted Trauma: no lacerations or abrasions Neuro General: patient alert, patient awake, oriented Patient Orientation: Person and Confused, gait abnormal, tone normal, moves all extremities, no meningeal signs, no focal motor deficits, CN's II-XI intact bilaterally, patient confused and unable to assess gait (generalized weakness) Cranial Nerves: CN's II-XI intact bilaterally Cognition: normal cognition Speech: speech normal Gait: gait abnormal (generalized weakness, difficulty following commands, concerned for safety) and other (did not ambulate) Motor: muscle tone normal throughout (moving all extremities equally), no pronator drift, no movement abnormalities noted, no fasciculations, no tremors, no pronator drift noted and No asterixis Extrem General: normal to inspection, full ROM, capillary refill normal, no clubbing, cyanosis or edema, no pedal edema, no calf tenderness and vascular access (right chest, no erythema, warmth or pain) Course Vital Signs Vital signs: Vital Signs Temperature 37.5 C 06/17/22 16:06 Pulse 82 06/17/22 16:06 Respiratory Rate 20 06/17/22 16:06 Blood Pressure 157/55 H 06/17/22 16:06 Pulse Oximetry 94 06/17/22 16:06 Temperature 37.5 C 06/17/22 16:06 Temperature Source Tympanic 06/17/22 16:06 Pulse 82 06/17/22 16:06 Respiratory Rate 20 06/17/22 16:06 Blood Pressure 157/55 H 06/17/22 16:06 Blood Pressure Position Sitting 06/17/22 16:06 Pulse Oximetry 94 06/17/22 16:06 Oxygen Delivery Method Room Air 06/17/22 16:06 Oxygen Flow Rate 0 06/17/22 16:06 Pain Level 7 06/17/22 16:06
--- NOTE | 2022-06-17 16:30 | DI.CT_ITS ---
Exam(s) CT CHEST/ABD/PEL WO EXAM: CT CHEST/ABD/PEL WO CLINICAL HISTORY: vomiting, fever, recent dialysis port placed TECHNIQUE: Imaging Protocol: Axial computed tomography images with coronal and sagittal reformatted images were created and reviewed COMPARISON: CT CTA AORTA W/RUNOFF from 08/17/2017 CT CTA AORTA W/RUNOFF from 10/03/[address] RENAL COLIC WO from 04/09/2020 CR XR PELVIS AP from 05/05/2022 CR XR FEMUR LT from 05/05/2022 FINDINGS: The examination is limited due to patient motion artifact. CHEST: Tracheobronchial tree: Patent where visualized. Pulmonary parenchyma: No consolidation or dominant measurable mass. No architectural distortion. Ther e is dependent atelectasis. Mediastinum and Tia: No dominant adenopathy or fluid collection. The esophagus is unremarkable. Thyroid gland: There is a 6 mm hypodensity in the thyroid gland. No follow-up is recommended. Pleura: No effusion or pneumothorax. Heart: Mild cardiomegaly. No coronary artery calcifications are seen. No pericardial effusion. Aorta: Thoracic aorta non-dilated. Atherosclerosis is present. Lymph nodes: Within normal limits. Bones:Within normal limits for the patient's age. Tubes, Catheters, and Lines: There is a cardiac pacing device and a central venous catheter in place. Soft tissues: Unremarkable. ABDOMEN: Liver: Normal density. No measurable mass. Gallbladder and Biliary Tract: Cholelithiasis. No biliary ductal dilatation. Pancreas: Pancreatic calcifications are seen. Spleen: There is a new 3 x 3.8 cm hypodense lesion in the spleen. Adrenals: No masses seen. Kidneys: The right kidney is absent. The left kidney is grossly unremarkable. No radiodense stones or obstructive uropathy. No masses seen. Abdominal Aorta: Abdominal portion non-dilated. Atherosclerosis is present. There is an aorto bifem stent. Bowel: No obstruction or bowel wall thickening. No evidence of appendicitis. Peritoneal Cavity: No ascites, collection or mesenteric inflammatory response. No free air. Lymph Nodes: Within normal limits. Bones: Within normal limits for the patient's age. There are healing left superior and inferior pubi c rami fractures. There is also a healing fracture involving the left sacral ala. Soft Tissues: Unremarkable. PELVIS: Bladder: Symmetric distention, no gross wall thickening. Reproductive Organs: Unremarkable as visualized. Lymph Nodes: Within normal limits. Bones: Within normal limits for the patient's age. IMPRESSION: 1. Atelectasis in the lung bases. 2. Healing fractures of the left superior and inferior pubic rami and the left sacral ala. 3. 3 x 3.8 cm hypodense lesion in the spleen. This may represent a cyst. Splenic ultrasound may be considered for further evaluation. This was not present on the prior examination. 4. Incidental findings in the abdomen and pelvis as described above. RADIATION DOSE DELIVERED: 2,173.91mGy.cm Total DLP 2,173.91mGy.cm Total DLP DATA REPOSITORY: All CT scans at this facility are submitted to the National Radiology Data Registry (NRDR) Dose Index Registry (DIR) with the [employer] (ACR). RADIATION OPTIMIZATION: All CT scans at this facility use at least one of these dose optimization te chniques: automated exposure control; mA and/or kV adjustment per patient size (includes targeted exa ms where dose is matched to clinical indication); or iterative reconstruction.
[2022-06-17 17:10] LABS: Lactate 0.9 mmol/L (0.6-1.4)
[2022-06-17 17:11] LABS: Abs Immature Grans 0.07 10^3/uL (0.0-0.06); Absolute Basophil Count 0.03 10^3/uL (0.0-0.2); Absolute Lymphocyte Count 0.17 10^3/uL (1.2-3.4); Absolute Neutrophil Count 14.54 10^3/uL (1.2-6.7); Basophils % 0.2; HCT 35.2 % (36.0-46.0); Immature Grans % 0.5; Lymphocytes % 1.1; MCHC 31.3 % (32.0-36.0); MCV 99 fL (80-95); Monocytes % 2.9; Neutrophils % 95.3; Platelet Count 155 10^3/uL (130-400); RBC 3.55 10^6/uL (3.93-5.22); RDW 16.6 % (11.7-14.6); RDW-SD 61.1 fL; WBC 15.26 10^3/uL (4.4-10.8)
[2022-06-17 17:14] LABS: Absolute Monocyte Count 0.44 10^3/uL (0.1-0.8)
[2022-06-17] MEDS: Lactated Ringers 250 ML IV (17:14)
--- NOTE | 2022-06-17 17:40 | DI.VRAD_ITS ---
PROCEDURE INFORMATION: Exam: CT Head Without Contrast Exam date and time: 06/17/2022 5:18 PM Age: 61 years old Clinical indication: Altered mental status/memory loss; Patient HX: Vomiting, fever, recent dialysis port placed TECHNIQUE: Imaging protocol: Computed tomography of the head without contrast. COMPARISON: CT HEAD WO 12/18/2021 7:42 PM FINDINGS: Brain: Age-appropriate atrophy. Chronic small vessel deep white matter ischemia. Encephalomalacic consistent with an old infarct in the posterior right parietal lobe. This region is stable since 12/18/2021. No acute large territory CVA. No mass. No acute edema. Cerebral ventricles: Ventriculomegaly concordant with atrophy. Some ex vacuo dilatation of the right lateral ventricle is noted related to adjacent post infarct atrophy. Paranasal sinuses: Paranasal sinuses are clear. Mastoid air cells: Visualized mastoid air cells are well aerated. Bones/joints: Intact calvarium. Soft tissues: Unremarkable. Vasculature: Cavernous carotid artery atherosclerotic calcium. IMPRESSION: 1. Atrophy and chronic small vessel deep white matter ischemia. 2. 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 3. Chronic ventriculomegaly concordant with atrophy and old infarct changes. 4. Carotid artery atherosclerotic calcium within the cavernous segments. 5. Clear sinuses. Dictated and Authenticated by: Juan Pablo Bocanegra MD. Ordering:CHRISTINA Zamora MD
[2022-06-17 17:42] LABS: Procalcitonin 6.6 ng/mL
[2022-06-17 17:46] LABS: ALT 18 U/L (14-59); AST 13 U/L (15-37); Albumin 3.1 g/dL (3.4-5.0); Alkaline Phosphatase 229 U/L (46-116); Anion Gap 9.5 mmol/L (3-11); BUN 26 mg/dL (7-18); Bilirubin, Total 1.3 mg/dL (0.2-1.0); CO2 30.5 mmol/L (21.0-32.0); Calcium 9.4 mg/dL (8.5-10.1); Chloride 98 mmol/L (98-107); Estimated GFR 8.52 (mL/min/1.73m2); Glucose 125 mg/dL (74-106); Magnesium 1.9 mg/dL (1.8-2.4); Potassium 3.4 mmol/L (3.5-5.1); Sodium 138 mmol/L (136-145); TSH (W/Ref FT4) 0.84 uIU/mL (0.36-3.74); Total Protein 6.5 g/dL (6.4-8.2); Troponin I 50 ng/L (<or=60)
[2022-06-17 17:47] LABS: CREATININE 5.4 mg/dL (0.55-1.02)
[2022-06-17 17:52] LABS: Bilirubin Negative (Negative); Blood Moderate (Negative); Clarity Cloudy (Clear); Glucose 100 mg/dL (Negative); Ketones Negative (Negative); Leukocyte Esterase Small (Negative); Nitrite Negative (Negative); Urobilinogen 0.2 mg/dL (Up to 0.2); pH 8.5 (5-8)
[2022-06-17 17:54] LABS: COVID-19 PCR Negative (Negative); Influenza A PCR Negative (Negative); Influenza B PCR Negative (Negative); RSV PCR Negative (Negative)
[2022-06-17 17:56] LABS: Source Nasopharynx
--- NOTE | 2022-06-17 18:00 | DI.VRAD_ITS ---
Addendum created by Juan Pablo Bocanegra MD on 06/17/2022 6:03:58 PM EST: The left-sided pelvic fractures appear to be related to an injury on 05/05/2022 based on previous images. There is nonspecific mild fatty stranding in the left perinephric space. Recommend clinical correlation with urinalysis. Additional small splenic subcapsular low-attenuation focus measuring 11 mm is noted on series 3, image 562. This can be further evaluated with splenic ultrasound along with the below described splenic lesion. Bilateral inferior thyroid lobe subcentimeter low-attenuation foci. Recommend clinical correlation. Thyroid ultrasound follow-up may be warranted. Initial report created on 06/17/2022 6:00:03 PM EST: PROCEDURE INFORMATION: Exam: CT Chest Without Contrast; Diagnostic Exam date and time: 06/17/2022 5:24 PM Age: 61 years old Clinical indication: Other: Vomiting, fever, recent dialysis port placed TECHNIQUE: Imaging protocol: Diagnostic computed tomography of the chest without contrast. Radiation optimization: All CT scans at this facility use at least one of these dose optimization techniques: automated exposure control; mA and/or kV adjustment per patient size (includes targeted exams where dose is matched to clinical indication); or iterative reconstruction. COMPARISON: XR CHEST 1V IN DI DEPT 12/18/2021 7:48 PM FINDINGS: Lungs: Mild segmental airspace consolidation of the posteroinferior right lower lobe. This may represent a developing infiltrate or atelectasis. There are features of mild COPD and emphysema of the lungs. There is respiratory motion artifact degrading image quality. Pleural spaces: No pleural effusion. Heart: Mild cardiac enlargement. Pacemaker. No pericardial effusion. No coronary artery atherosclerotic calcium is evident. Lymph nodes: Unremarkable. No enlarged lymph nodes. Vasculature: Unremarkable. No aortic aneurysm. Bones/joints: Thoracic skeletal structures are unremarkable. There is degenerative thoracic spine change. No acute features. Right chest wall tunneled dialysis catheter is in position. Tip enters the superior aspect of the right atrium. Soft tissues: Chest wall soft tissues are unremarkable. IMPRESSION: 1. Posterior right lung base segmental airspace consolidation may represent developing infiltrate or atelectasis. 2. Mild COPD and emphysema changes. 3. Mild cardiac enlargement. Pacemaker. 4. Right chest tunneled dialysis catheter with tip in right atrium. PROCEDURE INFORMATION: Exam: CT Abdomen And Pelvis Without Contrast Exam date and time: 06/17/2022 5:24 PM Age: 61 years old Clinical indication: Other: Vomiting, fever, recent dialysis port placed TECHNIQUE: Imaging protocol: Computed tomography of the abdomen and pelvis without contrast. Radiation optimization: All CT scans at this facility use at least one of these dose optimization techniques: automated exposure control; mA and/or kV adjustment per patient size (includes targeted exams where dose is matched to clinical indication); or iterative reconstruction. COMPARISON: CR XR PELVIS AP 05/05/2022 11:40 AM FINDINGS: Liver: Liver echogenicity is unremarkable. Mild nodularity of liver surface suggesting cirrhosis. Slightly small liver size. Gallbladder and bile ducts: Large gallstone within the gallbladder. Gallbladder is contracted. No gallbladder wall thickening. No biliary dilatation. Pancreas: Pancreatic atrophy of a severe nature. There are calcifications in the region of the residual parenchyma of the pancreatic head and uncinate process. These findings suggest chronic pancreatitis disease. Spleen: Splenomegaly. Cephalo caudal length of spleen is 13.8 cm. There is an upper pole splenic subcapsular low-attenuation focus measuring 4.4 x 2.8 cm. This is likely a splenic cyst. Ultrasound correlation is suggested. This is not evident on a prior study from 2018. Adrenal glands: Adrenal glands are unremarkable. Kidneys and ureters: Right kidney is not visible. Left kidney shows moderate atrophy. No acute features. Stomach and bowel: Gastric morphology is unremarkable. No edema. No gastric outlet obstruction. Small bowel loops are unremarkable as visualized. Large bowel loops are unremarkable as visible. Appendix: No evidence of appendicitis. Intraperitoneal space: No gross ascites. No free air. Vasculature: Previous aorto bi femoral bypass. No contrast has been administered. Lymph nodes: Unremarkable. No enlarged lymph nodes. Urinary bladder: Unremarkable as visualized. Reproductive: The uterus and adnexa are unremarkable in appearance. There are no dominant adnexal cysts or masslike features. There are no inflammatory features. No uterine mass evident. Bones/joints: Left inferior pubic ramus fracture. This is age indeterminate. See series 2, image 127. There is also a superior pubic ramus fracture at the junction with the left anterior acetabulum. Also age indeterminate. A fractures also noted of the left sacral ala without displacement. These may be subacute. Recommend clinical correlation. Soft tissues: Unremarkable. IMPRESSION: 1. Fractures of the left superior and inferior pelvic pubic rami. Age indeterminate. Possibly subacute. There is also a fracture of the left sacral ala without displacement. 2. Splenomegaly. Splenic low-attenuation 4.4 cm focus may represent a cyst. Recommend splenic ultrasound. This was not present 2017. 3. Pancreatic atrophy. Chronic pancreatitis features with multiple pancreatic calcifications. 4. Gallstone within a contracted gallbladder. No ductal dilatation. 5. No acute liver pathology. Mild nodular surface which could represent cirrhosis. Dictated and Authenticated by: Juan Pablo Bocanegra MD. Ordering:CHRISTINA Zamora MD
[2022-06-17 18:03] LABS: Epithelial Cells Rare HPF (Negative); Other Cells Few Transitional (Negative); WBC 20-50 HPF (0-5)
[2022-06-17 18:04] LABS: Bacteria Moderate HPF (Negative); C & S Indicated? Yes; Casts Negative LPF (Negative); Crystals Negative HPF (Negative); Mucus Trace (Negative)
[2022-06-17] MEDS: LORazepam 1 MG TAB PO (20:52)
[2022-06-17] MEDS: Carvedilol 12.5 MG TAB PO (21:45)
[2022-06-17] MEDS: Apixaban 2.5 MG TAB PO (21:45)
[2022-06-17] MEDS: lamoTRIgine 100 MG TAB PO (21:46)
[2022-06-17] MEDS: Mirtazapine 15 MG TAB PO (21:46)
[2022-06-17] MEDS: LORazepam 2 MG/ML VIAL 0.5 MG IVP (22:13)
--- NOTE | 2022-06-20 12:13 | NUR.NOTE ---
Faxed lab results to [facility] after speaking to a nurse there as the patient was transferred a couple of days ago.Nursing Note:
== END 2022-06-17 23:49 | disposition short-term general hospital (02) ==
PROVIDERS: Emergency Provider Physician Assistant; PCP Nurse Practitioner
DX: N39.0 Urinary tract infection, site not specified (principal); I12.0 Hypertensive chronic kidney disease with stage 5 chronic kidney disease or end stage renal disease; E11.22 Type 2 diabetes mellitus with diabetic chronic kidney disease; N18.6 End stage renal disease; F31.9 Bipolar disorder, unspecified; E11.42 Type 2 diabetes mellitus with diabetic polyneuropathy; R41.0 Disorientation, unspecified; Z79.4 Long term (current) use of insulin; Z20.822 Contact with and (suspected) exposure to COVID-19; Z99.2 Dependence on renal dialysis
CPT/HCPCS: 71250; 80053; 84145; 87040; 87077; 87637; 93005; 96361; 96365; 96366; 96375; 99285; 70450; 74176; 81003; 81015; 83605; 83735; 84443; 84484; 85025; 87086; 87186; 93010; J2060

== ENCOUNTER 2022-06-29 17:16 | Emergency (ER) | payer MEDICARE, MEDICAID, SELFPAY ==
[2022-06-29] VITALS (27 sets, daily range): BP systolic 135–161; BP diastolic 53–116; PULSE 55–62; RESP 8–18; TEMP 37.2; O2SAT 99
--- NOTE | 2022-06-29 17:15 | DI.CT_ITS ---
Exam(s) CT HEAD WO EXAM: CT HEAD WO CLINICAL HISTORY: altered mental status. TECHNIQUE: Imaging Protocol: Axial computed tomography images with coronal and sagittal reformatted images were created and reviewed COMPARISON: CT CT HEAD WO from 06/17/2022 FINDINGS: Ventricles and Extra axial spaces: Normal in size and morphology for the patient's age. Hemorrhage: None. Cerebral parenchyma: There is no evidence of an acute territorial infarct. There are areas of decrea sed attenuation in the white matter consistent with small vessel ischemic disease. There is again se en an area of encephalomalacia in the right parietal lobe. Midline shift: None. Brainstem/Cerebellum: Normal. Calvarium: Normal. Visualized Paranasal sinuses/Mastoids: Clear. Soft Tissues: Unremarkable. IMPRESSION: No acute intracranial process. RADIATION DOSE DELIVERED: 744.76mGy.cm Total DLP DATA REPOSITORY: All CT scans at this facility are submitted to the National Radiology Data Registry (NRDR) Dose Index Registry (DIR) with the [employer] (ACR). RADIATION OPTIMIZATION: All CT scans at this facility use at least one of these dose optimization te chniques: automated exposure control; mA and/or kV adjustment per patient size (includes targeted exa ms where dose is matched to clinical indication); or iterative reconstruction.
--- NOTE | 2022-06-29 17:15 | RT.EKG_ITS ---
APPROVED REPORT Exam: Resting ECG Reason for Exam: low heart rate Patient Location: E HR:54 bpm ECG Measurements Heart Rate 54 AXIS MO 73 P 0 QRSd 108 QRS -45 QT 485 T 75 QTc 461 Conclusion Sinus bradycardia...rate< 60 Left atrial enlargement...P, P'>60mS, <-0.15mV V1 Left anterior fascicular block...axis(240,-40), init forces inf LVH with secondary repolarization abnormality...multi-LVH criteria, abnrm ST-T
--- NOTE | 2022-06-29 17:26 | W.ED.GENAD ---
Discharge Plan Disposition Patient Disposition: Home Condition: Stable Discharge Details Clinical Impression: Altered mental status Primary Care Provider: Rosaura Fragoso ED Provider: Pernell Dennis Home Meds and New Rx's Prescriptions: Continued mirtazapine 15 mg tablet 15 mg PO QHS sevelamer carbonate [Renvela] 800 mg tablet 800 mg PO TID Rx Instructions: must administer with a meal/food acetylcysteine [NAC] 600 mg capsule 600 mg PO BID acetaminophen [Acetaminophen Extra Strength] 500 mg tablet 1,000 mg PO BID PRN (Reason: fever or pain) meclizine 12.5 mg tablet 12.5 mg PO TID PRN (Reason: dizziness) Qty: 14 0RF amlodipine 10 mg tablet 5 mg PO DAILY insulin glargine [Basaglar KwikPen U-100 Insulin] 100 unit/mL (3 mL) insulin pen 25 unit subcut QAM Qty: 21 3RF (DME) Blood Glucose Test strip See Dose Instructions .ROUTE .MEDSUPPLY Qty: 300 3RF Dose Instruction: As directed Rx Instructions: Test TID (DME) Adult Briefs - Large misc See Dose Instructions .ROUTE .MEDSUPPLY Qty: 150 12RF Dose Instruction: As directed Rx Instructions: Change as directed lamotrigine 100 mg tablet 100 mg PO BID Patient Comments: Increased to bid at [facility] d/c lorazepam 1 mg tablet 1 mg PO HS Patient Comments: may also take 0.5mg once daily if needed. (reported progress note ZEB 05/02/18) benztropine 0.5 mg tablet 0.5 mg PO HS Rx Instructions: Note dated 02/13/19 [facility] cgc multivitamin [Daily Multi-Vitamin] Tablet 1 tab PO DAILY Qty: 90 3RF cyanocobalamin (vitamin B-12) [Vitamin B-12] 500 mcg tablet 500 mcg PO DAILY nystatin 100,000 unit/gram powder 1 applic topical BID Qty: 60 1RF Rx Instructions: apply liberal amount to affected areas of rash to breasts until resolved Vraylar 1.5 mg capsule 1.5 mg PO DAILY Rx Instructions: as of 10/27/20 w/ permission from Dr. Pedersen via [facility] aspart U-100 [Novolog FlexPen U-100 Insulin] 100 unit/mL (3 mL) insulin pen See Rx Instructions subcut AC Qty: 15 3RF Rx Instructions: 2-10u based on sliding scale before meals. calcium carbonate [Tums Freshers] 200 mg calcium (500 mg) tablet,chewable 200 mg PO DAILY PRN Rx Instructions: Discharge note 03/15/21 [facility] fosinopril 40 mg tablet 40 mg PO BID Rx Instructions: increased by [facility] 05/26/21 aspirin [Adult Aspirin Regimen] 81 mg tablet,delayed release (DR/EC) 81 mg PO DAILY Qty: 90 3RF omeprazole 40 mg capsule,delayed release(DR/EC) 40 mg PO DAILY Qty: 90 3RF carvedilol [Coreg] 12.5 mg tablet 12.5 mg PO BID Qty: 180 3RF Rx Instructions: must administer with a meal/food Increased by [facility] 05/26/21 (DME) pen needle, diabetic 31 gauge x 1/3 needle 1 ea Miscellaneous QID Qty: 100 3RF Rx Instructions: BD Ultrafine Vane 4mm/32G For DM E11.65 A1C<7 manage freq. hyperglycemic episodes atorvastatin 40 mg tablet 40 mg PO DAILY Qty: 90 3RF Eliquis 5 mg tablet See Rx Instructions .ROUTE .COMPLEX Qty: 90 1RF Dose Instruction: TAKE 1/2 TABLET BY MOUTH TWO TIMES A DAY Rx Instructions: TAKE 1/2 TABLET BY MOUTH TWO TIMES A DAY Discharge Instructions Instructions: Altered Mental Status (ED) Additional Instructions: your blood work, cat scan and xray did not show concerning findings continue your dialysis as scheduled and f/u with your primary care provider within 1 week if you feel more ill, have difficulty breathing or persistent vomiting or worsening weakness return to the emergency department Medical Decision Making 61 yo female with hx of esrd on dialysis, gerd, dm, who was recently transferred to [facility] [place] due to sepsisand lack of beds at closer hospitals, comes in with ems with ams. She apparently called ems as she started to feel unwell and not herself. When ems arrived she was talking to them but en route became less responsive. She had HR in the 40's so they started to externally pace her. She arrives in sinus bradycardia rate in the 50's and bp 150/72. She has her eyes open but is not talking or following commands. She is not withdrawing extremities to any painful stimuli. Do not feel she requires pacing at this time. Given her abrupt change in mental status will evaluate further with ct/cta neck/brain, cbc, cmp, ua. She is currently protecting her airway, will monitor this closely. Initial NIH 27 NIH Stroke Scale/Score (NIHSS) from [employer] on 06/29/2022 All calculations should be rechecked by clinician prior to use RESULT SUMMARY: 27 points NIH Stroke Scale INPUTS: 1A: Level of consciousness ?> 3 = Postures or unresponsive 1B: Ask month and age ?> 2 = Aphasic 1C: 'Blink eyes' & 'squeeze hands' ?> 2 = Performs 0 tasks 2: Horizontal extraocular movements ?> 2 = Forced gaze palsy: cannot be overcome 3: Visual jasso ?> 0 = No visual loss 4: Facial palsy ?> 2 = Partial paralysis (lower face) 5A: Left arm motor drift ?> 4 = No movement 5B: Right arm motor drift ?> 4 = No movement 6A: Left leg motor drift ?> 4 = No movement 6B: Right leg motor drift ?> 4 = No movement 7: Limb Ataxia ?> 0 = Does not understand 8: Sensation ?> 0 = Normal; no sensory loss 9: Language/aphasia ?> 0 = Normal; no aphasia 10: Dysarthria ?> 0 = Normal 11: Extinction/inattention ?> 0 = No abnormality pt was difficult in obtaining access so noncontrast ct obtained. She is now awake and talking, knows her name but doesn't know where she is, and NIH is now 1 for not knowing month. Labs pending, will continue to monitor. Given rapid improvement in symptoms not a lytic candidate and unclear if this is a cva vs tia vs syncope imaging and labs show no acute changes. She feels well now and has no complaints. She is caox4. Unclearif this was a tia vs syncope, on chart review she has had prior episodes where she is hard to arouse but then awakens, has been seen in the ED for this in the past. Discussed with her observation admission but unfortunately we don't have beds and given she's a dialysis patient we can't keep her here. Other close tertiary care hospitals can't accept med surg level patients and she is not interested in another long transfer. She has decision making capacity and prefers to be discharged and f/u with her pcp. She is still receiving antibiotics at dialysis since d/c from [facility] in [place]. She will continue to receive these and advised to f/u with her pcp, return precautions given Differential Diagnosis Differential Diagnosis: cva, electrolyte abnormality, sepsis Medical Records Medical records reviewed: Yes I reviewed the patient's medical records. Imaging Data Radiologic Study: Attestation: I personally reviewed and interpreted this imaging study as follows: Imaging: CT Scan Radiologist's impression: FINDINGS: Brain: No intra or extra-axial bleed. Atrophy and chronic white matter disease. Small region of encephalomalacia in the right parietal lobe. Cortical ribbon is otherwise intact. Central aguilar structures are preserved. Cerebral ventricles: Stable mild hydrocephalus ex vacuo. Paranasal sinuses: No mucosal thickening or fluid levels. Mastoid air cells: Mastoid air cells are clear. Bones/joints: No significant bony abnormality. No fracture. Soft tissues: Unremarkable. Vasculature: No dense vessel. IMPRESSION: 1. Stable head CT. 2. Chronic atrophy and white matter disease. 3. No acute intracranial abnormality. Lab Data Lab results reviewed: Yes I reviewed the patient's lab results. ECG Data Attestation: I personally reviewed and interpreted this ECG (s) as follows: Prior ECG tracings: available for review Interpretation: sinus ramona, lvh, no stemi HPI General Mode of arrival: EMS. Date/Time Provider Initiated Documentation: 06/29/22 17:24. Limitations to Documentation: no limitations. Information obtained by: patient. History of Present Illness 61 year old F presents to the emergency department with the chief complaint of altered mental status, described as moderate, Patient started experiencing this hour(s) (3) and it has been constant. No relieving factors improve symptom(s), No exacerbating factors reported . Patient did receive the following treatments prior to arrival, none Related Data Home Medications Medication Instructions Recorded Confirmed blood sugar diagnostic (Blood #300 ea 05/06/18 06/17/22 Glucose Test strips) lamotrigine 100 mg tablet 100 mg PO BID 05/09/18 06/17/22 lorazepam 1 mg tablet 1 mg PO HS 05/09/18 06/17/22 diaper,brief,adult,disposable #150 ea 07/25/18 06/17/22 (Adult Briefs - Large) benztropine 0.5 mg tablet 0.5 mg PO HS 03/06/19 06/17/22 multivitamin (Daily Multi-Vitamin 1 tab PO DAILY #90 tabs 05/15/19 06/17/22 tablet) cyanocobalamin (vitamin B-12) 500 500 mcg PO DAILY 08/05/19 06/15/22 mcg tablet (Vitamin B-12) nystatin 100,000 unit/gram topical 1 applic topical BID #60 grams 02/04/20 06/17/22 powder acetylcysteine 600 mg capsule (NAC) 600 mg PO BID 02/11/20 06/17/22 mirtazapine 15 mg tablet 15 mg PO QHS 02/11/20 06/17/22 sevelamer carbonate 800 mg tablet 800 mg PO TID 02/11/20 06/17/22 (Renvela) acetaminophen 500 mg tablet 1,000 mg PO BID PRN fever or pain 07/06/20 06/17/22 (Acetaminophen Extra Strength) cariprazine 1.5 mg capsule 1.5 mg PO DAILY 10/27/20 06/17/22 (Vraylar) insulin aspart U-100 100 unit/mL See Rx Instructions subcut AC #15 12/16/20 06/17/22 (3 mL) subcutaneous pen (Novolog mL FlexPen U-100 Insulin aspart) calcium carbonate 200 mg calcium 200 mg PO DAILY PRN 03/18/21 06/17/22 (500 mg) chewable tablet (Tumem Freshers) fosinopril 40 mg tablet 40 mg PO BID 05/30/21 06/17/22 aspirin 81 mg tablet,delayed 81 mg PO DAILY #90 tabs 07/11/21 06/17/22 release (Adult Aspirin Regimen) omeprazole 40 mg capsule,delayed 40 mg PO DAILY #90 caps 07/11/21 06/15/22 release carvedilol 12.5 mg tablet (Coreg) 12.5 mg PO BID #180 tabs 09/08/21 06/17/22 pen needle, diabetic 31 gauge x #100 ea 02/27/22 06/17/2204/25 atorvastatin 40 mg tablet 40 mg PO DAILY #90 tabs 03/13/22 06/17/22 meclizine 12.5 mg tablet 12.5 mg PO TID PRN dizziness #14 03/29/22 06/15/22 tabs amlodipine 10 mg tablet 5 mg PO DAILY 05/18/22 06/17/22 insulin glargine 100 unit/mL (3 25 unit (0.25 mL) subcut QAM #21 mL 05/18/22 06/15/22 mL) subcutaneous pen (Basaglar KwikPen U-100 Insulin) apixaban 5 mg tablet (Eliquis) See Rx Instructions .Route 05/29/22 06/17/22 .COMPLEX #90 tabs Previous Rx's Medication Instructions Recorded blood sugar diagnostic (Blood #300 ea 05/06/18 Glucose Test strips) diaper,brief,adult,disposable #150 ea 07/25/18 (Adult Briefs - Large) multivitamin (Daily Multi-Vitamin 1 tab PO DAILY #90 tabs 05/15/19 tablet) nystatin 100,000 unit/gram topical 1 applic topical BID #60 grams 02/04/20 powder insulin aspart U-100 100 unit/mL See Rx Instructions subcut AC #15 12/16/20 (3 mL) subcutaneous pen (Novolog mL FlexPen U-100 Insulin aspart) aspirin 81 mg tablet,delayed 81 mg PO DAILY #90 tabs 07/11/21 release (Adult Aspirin Regimen) omeprazole 40 mg capsule,delayed 40 mg PO DAILY #90 caps 07/11/21 release carvedilol 12.5 mg tablet (Coreg) 12.5 mg PO BID #180 tabs 09/08/21 pen needle, diabetic 31 gauge x #100 ea 02/27/22 1/ atorvastatin 40 mg tablet 40 mg PO DAILY #90 tabs 03/13/22 meclizine 12.5 mg tablet 12.5 mg PO TID PRN dizziness #14 03/29/22 tabs insulin glargine 100 unit/mL (3 25 unit (0.25 mL) subcut QAM #21 mL 05/18/22 mL) subcutaneous pen (Basaglar KwikPen U-100 Insulin) apixaban 5 mg tablet (Eliquis) See Rx Instructions .Route 05/29/22 .COMPLEX #90 tabs Allergies Allergy/AdvReac Type Severity Reaction Status Date / Time aripiprazole [From Abilify] Allergy Severe Verified 06/17/22 16:16 duloxetine HCl Allergy Severe Hives Verified 06/17/22 16:16 [From Cymbalta] oxycodone Allergy Severe Hives Verified 06/17/22 16:16 Sulfa (Sulfonamide Allergy Severe Skin Rash Verified 06/17/22 16:16 Antibiotics) amitriptyline Allergy Intermediate Verified 06/17/22 16:16 citalopram Allergy Intermediate HIVES Verified 06/17/22 16:16 fesoterodine Allergy Intermediate HIVES Verified 06/17/22 16:16 latex Allergy Intermediate Hives Verified 06/17/22 16:16 rabies vaccine, human Allergy Intermediate Verified 06/17/22 16:16 diploid cell [Rabies Vaccine,Human Diploid] Tetanus Vaccines and Toxoid Allergy Intermediate Swelling/Ed Verified 06/17/22 16:16 [Tetanus Vaccines & Toxoid] ghulam acetaminophen [From Vicodin] Allergy Unknown Verified 06/17/22 16:16 bupropion HCl Allergy Unknown Verified 06/17/22 16:16 [From Wellbutrin] celecoxib [From Celebrex] Allergy Unknown Verified 06/17/22 16:16 diazepam [From Valium] Allergy Unknown Verified 06/17/22 16:16 divalproex sodium Allergy Unknown Verified 06/17/22 16:16 [From Depakote] escitalopram oxalate Allergy Unknown Verified 06/17/22 16:16 [From Lexapro] fluoxetine HCl [From Prozac] Allergy Unknown Verified 06/17/22 16:16 fosphenytoin sodium Allergy Unknown Verified 06/17/22 16:16 [From Cerebyx] hydrocodone bitartrate Allergy Unknown Verified 06/17/22 16:16 [From Vicodin] morphine Allergy Unknown Verified 06/17/22 16:16 nicotine [From Nicoderm CQ] Allergy Unknown rash/hives Verified 06/17/22 16:16 paroxetine HCl [From Paxil] Allergy Unknown Verified 06/17/22 16:16 phenytoin sodium Allergy Unknown Verified 06/17/22 16:16 [From Dilantin] phenytoin sodium extended Allergy Unknown Verified 06/17/22 16:16 [From Dilantin] prednisone Allergy Unknown Verified 06/17/22 16:16 procaine HCl [From Novocain] Allergy Unknown Verified 06/17/22 16:16 quetiapine Allergy Unknown Verified 06/17/22 16:16 quetiapine fumarate Allergy Unknown Verified 06/17/22 16:16 [From Seroquel] risperidone [From Risperdal] Allergy Unknown Verified 06/17/22 16:16 sertraline Allergy Unknown Hives Verified 06/17/22 16:16 trazodone Allergy Unknown Verified 06/17/22 16:16 venlafaxine HCl Allergy Unknown Verified 06/17/22 16:16 [From Effexor] warfarin [From Coumadin] Allergy none Verified 06/17/22 16:16 listed on referral thiothixene [Thiothixene] AdvReac Severe Nausea Verified 06/17/22 16:16 topiramate AdvReac Intermediate Nausea Verified 06/17/22 16:16 gabapentin AdvReac Unknown Severe Verified 06/17/22 16:16 dizziness, runs; vomiting lidocaine AdvReac Unknown Nausea Verified 06/17/22 16:16 ibuprofen AdvReac headache Verified 06/17/22 16:16 and nausea melatonin AdvReac nightmares Verified 06/17/22 16:16 varenicline tartrate AdvReac Psychosis Verified 06/17/22 16:16 [From Chantix] ABSOLUTE CONTRAINDICATION AdvReac Severe Headache Uncoded 06/17/22 16:16 FOR MRI (disconnected RV pacer lead) general anesthia AdvReac Unknown Uncoded 06/17/22 16:16 General Stated Complaint: [id number] ASIM: 2 Review of Systems Unobtainable due to mental status PFSH All Active Problems (Updated 06/29/22 @ 20:20 by Pernell Dennis MD) UTI (urinary tract infection) (Acute) Acute delirium (Acute) Altered mental status (Acute) Atherosclerosis of artery of both lower extremities (Acute) 06/08/22 Rd Uriarte DP - podiatry visit Reticulocytopenia (Acute) Elevated ferritin (Acute) Dialysis patient (Acute) Fracture of ramus of left pubis (Acute) Hyperlipidemia (Acute) 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 11/15/21 Decision from Transplant Eval that pt is not a candidate for kidney transplant Dysuria (Acute) Memory deficit (Acute) Solitary left kidney (Acute) Decreased GFR (Acute) Viral syndrome (Acute) Bilateral leg edema (Acute) Colonoscopy refused (Acute) Urinary incontinence (Acute 02/11/15) Urge incontinence (Chronic) Elevated cholesterol (Chronic) Fracture of radial neck, left, closed (Acute) H/O endarterectomy (Chronic) Non-adherence to medical treatment (Acute) Type 2 diabetes mellitus (Chronic) Sinus bradycardia (Chronic) S/p pacemaker. Generator change 12/2013 [facility] (Yariel MCLAUGHLIN). Pocket revision & new RV lead 10/2014 [facility]. Postmenopausal (Chronic) LMP ~2004 Paranoia (Chronic 12/19/16) Meralgia paresthetica, right lower limb (Chronic 11/05/15) Dr. 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 Congenital single kidney (Chronic 03/08/15) by xray from [facility] 03/17/09 in scanned records Adult BMI > 30 (Chronic 06/07/15) Medical History (Updated 06/29/22 @ 20:20 by Pernell Dennis MD) Bipolar 1 disorder Depression End stage renal disease 07/21/20 [facility] [place] [facility] Hemodialysis patient Hypertension (~06/20/19) Goal <130/80 [facility] Onychomycosis 06/08/22 Rd Uriarte DPM Pacemaker (10/22/14) for bradycardia and sinus node dysfunction DDD pacer 2004 in [place] Medtronic dual lead programmed VVI - PG replaced 01/01/2014 [facility] Old RV lead abandoned PAD (peripheral artery disease) (08/13/17) PTSD (post-traumatic stress disorder) (05/28/17) Seizure Sinus node dysfunction (10/22/14) Stroke R parietal; asymptomatic; Toe pain, bilateral 06/08/22 Rd Harriet DPM Type 2 diabetes mellitus with diabetic polyneuropathy Surgical History aortobifemoral bypass (09/07/17) [facility] [facility] vascular. August 2017 section (~1985) Pacemaker (~2004) [place] S/P angioplasty (01/30/18) left femoral endarterectomy and patch angioplasty, Aortogram, Over the wire Left ABF graft thrombectomy, Open ledt ABF thrombectomy, left ABF graft stent (VBX 8x39) S/P aortobifemoral bypass surgery Family History Mother No problems noted. Father No problems noted. Sister No problems noted. Social History Smoking/Tobacco Use Status: Former Tobacco Use Quit Date: 03/03/21 Pack-years: 37 Smoking risk assessment performed?: Yes Alcohol Intake: never Drug use: Never Substance use type: does not use Adopted: No Number of Children: 1 Do you need help understanding health information?: Always current occupation: disabliilty What type of physical activity do you participate in: walking Duration: 15-30 minutes/day Frequency: 3-4 times per week Do you feel safe at home: Yes Do you feel safe in your relationship?: Yes Exam HENMT Head: normal to inspection Ears: external ears normal General nose exam: external nose normal Mouth: moist mucous membranes Eyes General: appearance normal, both eyes and all related structures Neck Neck: normal visual inspection Cardio Rate: regular rate GI Palpation: soft and nontender Skin General skin exam: no rashes or lesions noted Neuro General: patient alert Extrem General: normal to inspection Psych Mental Status: mental status grossly normal Course Vital Signs Vital signs: Respiratory Effort Normal, Non-Labored 06/29/22 17:19
[2022-06-29 17:38] LABS: Abs Immature Grans 0.06 10^3/uL (0.0-0.06); Absolute Basophil Count 0.05 10^3/uL (0.0-0.2); Absolute Eosinophil Count 0.08 10^3/uL (0.0-0.7); Absolute Lymphocyte Count 0.99 10^3/uL (1.2-3.4); Absolute Monocyte Count 0.76 10^3/uL (0.1-0.8); Absolute Neutrophil Count 8.46 10^3/uL (1.2-6.7); Basophils % 0.5; Eosinophils % 0.8; HCT 33.8 % (36.0-46.0); HGB 10.5 g/dL (11.2-15.7); Immature Grans % 0.6; Lymphocytes % 9.5; MCHC 31.1 % (32.0-36.0); MCV 100 fL (80-95); MPV 9.1 fL (8.0-11.0); Monocytes % 7.3; Neutrophils % 81.3; Platelet Count 308 10^3/uL (130-400); RBC 3.39 10^6/uL (3.93-5.22); RDW-SD 59.3 fL
[2022-06-29 18:00] LABS: AST 23 U/L (15-37); Alkaline Phosphatase 280 U/L (46-116); Anion Gap 11.9 mmol/L (3-11); BUN 23 mg/dL (7-18); Bilirubin, Total 0.5 mg/dL (0.2-1.0); CO2 29.1 mmol/L (21.0-32.0); Calcium 9.1 mg/dL (8.5-10.1); Chloride 93 mmol/L (98-107); Estimated GFR 10.07 (mL/min/1.73m2); Glucose 60 mg/dL (74-106); Magnesium 2.2 mg/dL (1.8-2.4); Potassium 3.7 mmol/L (3.5-5.1); Sodium 134 mmol/L (136-145); TSH (W/Ref FT4) 0.57 uIU/mL (0.36-3.74); Total Protein 7.1 g/dL (6.4-8.2); Troponin I < 50 ng/L (<or=60)
[2022-06-29 18:04] LABS: ALT < 6 U/L (14-59); CREATININE 4.7 mg/dL (0.55-1.02)
[2022-06-29 18:21] LABS: Salicylate < 2.8 mg/dL (<2.8)
--- NOTE | 2022-06-29 18:22 | DI.VRAD_ITS ---
PROCEDURE INFORMATION: Exam: CT Head Without Contrast Exam date and time: 06/29/2022 5:33 PM Age: 61 years old Clinical indication: Stroke-like symptoms; Altered mental status/memory loss TECHNIQUE: Imaging protocol: Computed tomography of the head without contrast. Total images: 1024 Other technique: STROKE PROTOCOL was implemented. COMPARISON: CT HEAD WO 06/17/2022 5:18 PM FINDINGS: Brain: No intra or extra-axial bleed. Atrophy and chronic white matter disease. Small region of encephalomalacia in the right parietal lobe. Cortical ribbon is otherwise intact. Central aguilar structures are preserved. Cerebral ventricles: Stable mild hydrocephalus ex vacuo. Paranasal sinuses: No mucosal thickening or fluid levels. Mastoid air cells: Mastoid air cells are clear. Bones/joints: No significant bony abnormality. No fracture. Soft tissues: Unremarkable. Vasculature: No dense vessel. IMPRESSION: 1. Stable head CT. 2. Chronic atrophy and white matter disease. 3. No acute intracranial abnormality. ASSESSMENT: ASPECTS ([place] Stroke Program Early CT Score) is 10. Dictated and Authenticated by: Lb Bianchi MD. Ordering:OSMANI Gimenez MD
[2022-06-29 18:30] LABS: Procalcitonin 1.2 ng/mL
--- NOTE | 2022-06-29 18:45 | DI.RAD_ITS ---
Exam(s) XR PORTABLE CHEST AP EXAM: XR PORTABLE CHEST AP CLINICAL HISTORY: ?pneumonia TECHNIQUE: 2D digital imaging was performed of the chest. One image was obtained. An AP view was ob tained. COMPARISON: CR XR PORTABLE CHEST AP from 05/23/2021 FINDINGS: MEDIASTINUM: Normal. HEART: Normal. There is a dual lead pacemaker. PULMONARY VASCULATURE: Normal. LUNGS: There is plate atelectasis in the right lung base. No consolidation. PLEURAL SPACE: No pleural effusion or pneumothorax. BONE:Within normal limits for the patient's age. OTHER FINDINGS:Normal. IMPRESSION: No consolidation to suggest pneumonia. DATA REPOSITORY: RADIATION DOSE DELIVERED:
[2022-06-29 19:39] LABS: PTT Activated 26.7 sec (21.5-31.9); Prothrombin Time 10.3 sec (9.3-11.0)
--- NOTE | 2022-06-29 19:41 | DI.VRAD_ITS ---
PROCEDURE INFORMATION: Exam: XR Chest Exam date and time: 06/29/2022 7:02 PM Age: 61 years old Clinical indication: Other: ? Pneumonia TECHNIQUE: Imaging protocol: Radiologic exam of the chest. Views: 1 view. Total images: 1 COMPARISON: CT CHEST/ABD/PEL WO 06/17/2022 5:24 PM FINDINGS: Tubes, catheters and devices: Dual lead left pacemaker. Lungs: Discoid atelectasis right lung base. No consolidation. Pulmonary makenzie: Unremarkable contours. Pleural spaces: No pleural effusion. No pneumothorax. Heart/Mediastinum: Unremarkable contours. No cardiomegaly. Bones/joints: Unremarkable. Intraperitoneal space: Visualized upper abdomen is unremarkable. IMPRESSION: 1. Right basilar discoid atelectasis. 2. No pneumonia. Dictated and Authenticated by: Lb Bianchi MD. Ordering:OSMANI Gimenez MD
[2022-06-29 19:43] LABS: Troponin I < 50 ng/L (<or=60)
== END 2022-06-29 20:58 | disposition home or self-care (01) ==
PROVIDERS: Emergency Provider Emergency Medicine; PCP Nurse Practitioner
DX: R41.82 Altered mental status, unspecified (principal); I12.0 Hypertensive chronic kidney disease with stage 5 chronic kidney disease or end stage renal disease; E11.22 Type 2 diabetes mellitus with diabetic chronic kidney disease; N18.6 End stage renal disease; E11.42 Type 2 diabetes mellitus with diabetic polyneuropathy
CPT/HCPCS: 36415; 80053; 84145; 87635; 93005; 99284; 70450; 71045; 80329; 83735; 84443; 84484; 85025; 85610; 85730; 93010

== ENCOUNTER 2022-07-03 15:40 | Emergency (ER) | payer MEDICARE, MEDICAID, SELFPAY ==
[2022-07-03] VITALS (39 sets, daily range): BP systolic 123–190; BP diastolic 50–162; PULSE 50–68; RESP 10–24; TEMP 36.2; O2SAT 98
--- NOTE | 2022-07-03 16:08 | W.ED.GENAD ---
Discharge Plan Disposition Patient Disposition: Home Condition: Improving Discharge Details Clinical Impression: Vertigo Primary Care Provider: Rosaura Fragoso ED Provider: Sera Zhao Home Meds and New Rx's Prescriptions: New meclizine 12.5 mg tablet 12.5 mg PO TID PRN (Reason: dizziness) Qty: 10 0RF Continued mirtazapine 15 mg tablet 15 mg PO QHS sevelamer carbonate [Renvela] 800 mg tablet 800 mg PO TID Rx Instructions: must administer with a meal/food acetylcysteine [NAC] 600 mg capsule 600 mg PO BID acetaminophen [Acetaminophen Extra Strength] 500 mg tablet 1,000 mg PO BID PRN (Reason: fever or pain) meclizine 12.5 mg tablet 12.5 mg PO TID PRN (Reason: dizziness) Qty: 14 0RF amlodipine 10 mg tablet 5 mg PO DAILY insulin glargine [Basaglar KwikPen U-100 Insulin] 100 unit/mL (3 mL) insulin pen 25 unit subcut QAM Qty: 21 3RF (DME) Blood Glucose Test strip See Dose Instructions .ROUTE .MEDSUPPLY Qty: 300 3RF Dose Instruction: As directed Rx Instructions: Test TID (DME) Adult Briefs - Large misc See Dose Instructions .ROUTE .MEDSUPPLY Qty: 150 12RF Dose Instruction: As directed Rx Instructions: Change as directed lamotrigine 100 mg tablet 100 mg PO BID Patient Comments: Increased to bid at [place] d/c lorazepam 1 mg tablet 1 mg PO HS Patient Comments: may also take 0.5mg once daily if needed. (reported progress note [facility] 05/02/18) benztropine 0.5 mg tablet 0.5 mg PO HS Rx Instructions: Note dated 02/13/19 [facility] multivitamin [Daily Multi-Vitamin] Tablet 1 tab PO DAILY Qty: 90 3RF cyanocobalamin (vitamin B-12) [Vitamin B-12] 500 mcg tablet 500 mcg PO DAILY nystatin 100,000 unit/gram powder 1 applic topical BID Qty: 60 1RF Rx Instructions: apply liberal amount to affected areas of rash to breasts until resolved Vraylar 1.5 mg capsule 1.5 mg PO DAILY Rx Instructions: as of 10/27/20 w/ permission from Dr. Pedersen via Kathya [facility] [place] calcium carbonate [Tums Freshers] 200 mg calcium (500 mg) tablet,chewable 200 mg PO DAILY PRN Rx Instructions: Discharge note 03/15/21 [facility] [place] fosinopril 40 mg tablet 40 mg PO BID Rx Instructions: increased by [facility] [place] 05/26/21 aspirin [Adult Aspirin Regimen] 81 mg tablet,delayed release (DR/EC) 81 mg PO DAILY Qty: 90 3RF omeprazole 40 mg capsule,delayed release(DR/EC) 40 mg PO DAILY Qty: 90 3RF carvedilol [Coreg] 12.5 mg tablet 12.5 mg PO BID Qty: 180 3RF Rx Instructions: must administer with a meal/food Increased by [facility] [place] 05/26/21 (DME) pen needle, diabetic 31 gauge x 1/3 needle 1 ea Miscellaneous QID Qty: 100 3RF Rx Instructions: BD Ultrafine Vane 4mm/32G For DM E11.65 A1C<7 manage freq. hyperglycemic episodes atorvastatin 40 mg tablet 40 mg PO DAILY Qty: 90 3RF Eliquis 5 mg tablet See Rx Instructions .ROUTE .COMPLEX Qty: 90 1RF Dose Instruction: TAKE 1/2 TABLET BY MOUTH TWO TIMES A DAY Rx Instructions: TAKE 1/2 TABLET BY MOUTH TWO TIMES A DAY insulin aspart U-100 [Novolog FlexPen U-100 Insulin] 100 unit/mL (3 mL) insulin pen See Rx Instructions subcut AC Qty: 15 3RF Rx Instructions: 2-10u based on sliding scale before meals. Discharge Instructions Instructions: Vertigo (ED) Additional Instructions: As we discussed, your labs are reassuring here today. Your exam and history are most consistent with peripheral vertigo. Please follow-up with primary care in the next week for reevaluation. Please take the meclizine as prescribed if you have any recurrence of your symptoms. If you develop headache, visual change, weakness, sensory deficit or your vertigo is not relieved by the medication, please seek care urgently once again. Referrals: Rosaura Fragoso NP [Primary Care Provider] - Medical Decision Making Patient is a pleasant 61-year-old female presenting today with concern for vertigo. Patient states that she has vertigo historically. Was at dialysis today and developed it about 10 minutes after completion when she was waiting for her ride. States that she feels like the room is spinning around her. Denies any chest pain, shortness of breath, nausea, vomiting, headache, visual changes, weakness or sensory changes. Patient has had this historically but did not have the meclizine with her. Reports that typically when she gets is a few days after she has her dialysis. States that while she is at rest, her symptoms are greatly improved. Past medical history is pertinent for chronic kidney disease, Sunday dialysis, type 2 diabetes. On exam, patient appears chronically ill but nontoxic. Much improved from when I saw her few weeks ago and patient was admitted for acute delirium in the setting of a UTI. At this time, she is not having active vertigo and no nystagmus was elicited. She has no meningeal signs. No focal deficits. She does chronically have some slight weakness in the left lower extremity but this is unchanged from baseline. Ambulating well with her walker which again, is baseline. As patient has had this historically without any acute change in this, I do not see need for imaging of her head, particularly she has had some significant imaging recently. Instead, will give her typical dose of meclizine. If this is unsuccessful, we may consider further imaging. Will obtain baseline labs however, as an abnormality may have exacerbated this underlying acute on chronic episode of peripheral vertigo. Labs reviewed. Hemoglobin is low at 10.1, patient is chronically anemic. CMP concerning for potassium of 3.1, she was dialyzed today. Creatinine is elevated 2.8, GFR of 18. Her glucose is low on this initial draw but patient did eat a turkey sandwich since this dry being completed. After the meclizine, patient reports that her symptoms have completely resolved. Ambulatory without return of symptoms. No evidence of weakness. As the patient has had this historically, again this is more consistent with a peripheral vertigo and I do not see need for further imaging at this time. I did speak with patient's caregiver, Mady, who will come to picker / packer the patient we will continue to monitor. If she develops any new or worsening symptoms, patient will be brought back to the emergency department. I encourage close follow-up with primary care. I also encouraged her to keep some meclizine with her as this seems to be a recurrent issue for the patient. All of her questions and concerns were addressed and she is in agreement this plan. HPI General Date/Time Provider Initiated Documentation: 07/03/22 15:59. Limitations to Documentation: no limitations. Information obtained by: patient and RN notes reviewed. History of Present Illness 61 year old F presents to the emergency department with the chief complaint of Vertigo, described as severe and similar to prior episodes, with intensity rated at 1 (Patient denies any pain). and is localized to the head. Patient started experiencing this minute(s) and it has been constant (This is significantly improved compared to when she first had the symptoms but still feels slightly dizzy). Immobilization improves symptom(s), Movement worsens symptoms . Patient notes no other symptoms.. Patient did receive the following treatments prior to arrival, none Related Data Home Medications Medication Instructions Recorded Confirmed blood sugar diagnostic (Blood #300 ea 05/06/18 07/03/22 Glucose Test strips) lamotrigine 100 mg tablet 100 mg PO BID 05/09/18 07/03/22 lorazepam 1 mg tablet 1 mg PO HS 05/09/18 07/03/22 diaper,brief,adult,disposable #150 ea 07/25/18 07/03/22 (Adult Briefs - Large) benztropine 0.5 mg tablet 0.5 mg PO HS 03/06/19 07/03/22 multivitamin (Daily Multi-Vitamin 1 tab PO DAILY #90 tabs 05/15/19 07/03/22 tablet) cyanocobalamin (vitamin B-12) 500 500 mcg PO DAILY 08/05/19 07/03/22 mcg tablet (Vitamin B-12) nystatin 100,000 unit/gram topical 1 applic topical BID #60 grams 02/04/20 07/03/22 powder acetylcysteine 600 mg capsule (NAC) 600 mg PO BID 02/11/20 07/03/22 mirtazapine 15 mg tablet 15 mg PO QHS 02/11/20 07/03/22 sevelamer carbonate 800 mg tablet 800 mg PO TID 02/11/20 07/03/22 (Renvela) acetaminophen 500 mg tablet 1,000 mg PO BID PRN fever or pain 07/06/20 07/03/22 (Acetaminophen Extra Strength) cariprazine 1.5 mg capsule 1.5 mg PO DAILY 10/27/20 07/03/22 (Vraylar) calcium carbonate 200 mg calcium 200 mg PO DAILY PRN 03/18/21 07/03/22 (500 mg) chewable tablet (Tums Freshers) fosinopril 40 mg tablet 40 mg PO BID 05/30/21 07/03/22 aspirin 81 mg tablet,delayed 81 mg PO DAILY #90 tabs 07/11/21 07/03/22 release (Adult Aspirin Regimen) omeprazole 40 mg capsule,delayed 40 mg PO DAILY #90 caps 07/11/21 07/03/22 release carvedilol 12.5 mg tablet (Coreg) 12.5 mg PO BID #180 tabs 09/08/21 07/03/22 pen needle, diabetic 31 gauge x #100 ea 02/27/22 07/03/2204/25 atorvastatin 40 mg tablet 40 mg PO DAILY #90 tabs 03/13/22 07/03/22 meclizine 12.5 mg tablet 12.5 mg PO TID PRN dizziness #14 03/29/22 07/03/22 tabs amlodipine 10 mg tablet 5 mg PO DAILY 05/18/22 07/03/22 insulin glargine 100 unit/mL (3 25 unit (0.25 mL) subcut QAM #21 mL 05/18/22 07/03/22 mL) subcutaneous pen (Basaglar KwikPen U-100 Insulin) apixaban 5 mg tablet (Eliquis) See Rx Instructions .Route 05/29/22 07/03/22 .COMPLEX #90 tabs insulin aspart U-100 100 unit/mL See Rx Instructions subcut AC #15 07/03/22 07/03/22 (3 mL) subcutaneous pen (Novolog mL FlexPen U-100 Insulin aspart) meclizine 12.5 mg tablet 12.5 mg PO TID PRN dizziness #10 07/03/22 tabs Previous Rx's Medication Instructions Recorded blood sugar diagnostic (Blood #300 ea 05/06/18 Glucose Test strips) diaper,brief,adult,disposable #150 ea 07/25/18 (Adult Briefs - Large) multivitamin (Daily Multi-Vitamin 1 tab PO DAILY #90 tabs 05/15/19 tablet) nystatin 100,000 unit/gram topical 1 applic topical BID #60 grams 02/04/20 powder aspirin 81 mg tablet,delayed 81 mg PO DAILY #90 tabs 07/11/21 release (Adult Aspirin Regimen) omeprazole 40 mg capsule,delayed 40 mg PO DAILY #90 caps 07/11/21 release carvedilol 12.5 mg tablet (Coreg) 12.5 mg PO BID #180 tabs 09/08/21 pen needle, diabetic 31 gauge x #100 ea 02/27/22 1/ atorvastatin 40 mg tablet 40 mg PO DAILY #90 tabs 03/13/22 meclizine 12.5 mg tablet 12.5 mg PO TID PRN dizziness #14 03/29/22 tabs insulin glargine 100 unit/mL (3 25 unit (0.25 mL) subcut QAM #21 mL 05/18/22 mL) subcutaneous pen (Basaglar KwikPen U-100 Insulin) apixaban 5 mg tablet (Eliquis) See Rx Instructions .Route 05/29/22 .COMPLEX #90 tabs insulin aspart U-100 100 unit/mL See Rx Instructions subcut AC #15 07/03/22 (3 mL) subcutaneous pen (Novolog mL FlexPen U-100 Insulin aspart) meclizine 12.5 mg tablet 12.5 mg PO TID PRN dizziness #10 07/03/22 tabs Allergies Allergy/AdvReac Type Severity Reaction Status Date / Time aripiprazole [From Abilify] Allergy Severe Verified 07/03/22 15:50 duloxetine HCl Allergy Severe Hives Verified 07/03/22 15:50 [From Cymbalta] oxycodone Allergy Severe Hives Verified 07/03/22 15:50 Sulfa (Sulfonamide Allergy Severe Skin Rash Verified 07/03/22 15:50 Antibiotics) amitriptyline Allergy Intermediate Verified 07/03/22 15:50 citalopram Allergy Intermediate HIVES Verified 07/03/22 15:50 fesoterodine Allergy Intermediate HIVES Verified 07/03/22 15:50 latex Allergy Intermediate Hives Verified 07/03/22 15:50 rabies vaccine, human Allergy Intermediate Verified 07/03/22 15:50 diploid cell [Rabies Vaccine,Human Diploid] Tetanus Vaccines and Toxoid Allergy Intermediate Swelling/Ed Verified 07/03/22 15:50 [Tetanus Vaccines & Toxoid] ghulam acetaminophen [From Vicodin] Allergy Unknown Verified 07/03/22 15:50 bupropion HCl Allergy Unknown Verified 07/03/22 15:50 [From Wellbutrin] celecoxib [From Celebrex] Allergy Unknown Verified 07/03/22 15:50 diazepam [From Valium] Allergy Unknown Verified 07/03/22 15:50 divalproex sodium Allergy Unknown Verified 07/03/22 15:50 [From Depakote] escitalopram oxalate Allergy Unknown Verified 07/03/22 15:50 [From Lexapro] fluoxetine HCl [From Prozac] Allergy Unknown Verified 07/03/22 15:50 fosphenytoin sodium Allergy Unknown Verified 07/03/22 15:50 [From Cerebyx] hydrocodone bitartrate Allergy Unknown Verified 07/03/22 15:50 [From Vicodin] morphine Allergy Unknown Verified 07/03/22 15:50 nicotine [From Nicoderm CQ] Allergy Unknown rash/hives Verified 07/03/22 15:50 paroxetine HCl [From Paxil] Allergy Unknown Verified 07/03/22 15:50 phenytoin sodium Allergy Unknown Verified 07/03/22 15:50 [From Dilantin] phenytoin sodium extended Allergy Unknown Verified 07/03/22 15:50 [From Dilantin] prednisone Allergy Unknown Verified 07/03/22 15:50 procaine HCl [From Novocain] Allergy Unknown Verified 07/03/22 15:50 quetiapine Allergy Unknown Verified 07/03/22 15:50 quetiapine fumarate Allergy Unknown Verified 07/03/22 15:50 [From Seroquel] risperidone [From Risperdal] Allergy Unknown Verified 07/03/22 15:50 sertraline Allergy Unknown Hives Verified 07/03/22 15:50 trazodone Allergy Unknown Verified 07/03/22 15:50 venlafaxine HCl Allergy Unknown Verified 07/03/22 15:50 [From Effexor] warfarin [From Coumadin] Allergy none Verified 07/03/22 15:50 listed on referral thiothixene [Thiothixene] AdvReac Severe Nausea Verified 07/03/22 15:50 topiramate AdvReac Intermediate Nausea Verified 07/03/22 15:50 gabapentin AdvReac Unknown Severe Verified 07/03/22 15:50 dizziness, runs; vomiting lidocaine AdvReac Unknown Nausea Verified 07/03/22 15:50 ibuprofen AdvReac headache Verified 07/03/22 15:50 and nausea melatonin AdvReac nightmares Verified 07/03/22 15:50 varenicline tartrate AdvReac Psychosis Verified 07/03/22 15:50 [From Chantix] ABSOLUTE CONTRAINDICATION AdvReac Severe Headache Uncoded 07/03/22 15:50 FOR MRI (disconnected RV pacer lead) general anesthia AdvReac Unknown Uncoded 07/03/22 15:50 General Stated Complaint: Dizzy/Sync ASIM: 3 Review of Systems Constitutional Constitutional: Reports as per HPI, Denies chills, Denies fever(s), Denies frequent falls and Denies weakness Eyes Eyes: Reports as per HPI, Denies blurry vision and Denies change in vision Cardiovascular Cardiovascular: Reports as per HPI, Denies chest pain, Denies lightheadedness and Denies dyspnea Respiratory Respiratory: Reports as per HPI, Denies chest congestion, Denies cough and Denies dyspnea Gastrointestinal Gastrointestinal: Reports as per HPI, Denies abdominal pain, Denies change in bowel habits, Denies nausea and Denies vomiting Musculoskeletal Musculoskeletal: Reports as per HPI Integumentary/Breasts Skin/Breast: Reports as per HPI and Denies rash Neurologic Neurologic: Reports as per HPI, Denies frequent falls, Denies localized weakness, Denies sensory deficit and Denies weakness PFSH All Active Problems (Updated 07/03/22 @ 19:14 by SARA Del Castillo) UTI (urinary tract infection) (Acute) Acute delirium (Acute) Altered mental status (Acute) Vertigo (Acute) Atherosclerosis of artery of both lower extremities (Acute) 06/08/22 Rd Uriarte DPM - podiatry visit Reticulocytopenia (Acute) Elevated ferritin (Acute) Dialysis patient (Acute) Fracture of ramus of left pubis (Acute) Hyperlipidemia (Acute) 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 11/15/21 Decision from Transplant Eval that pt is not a candidate for kidney transplant Dysuria (Acute) Memory deficit (Acute) Solitary left kidney (Acute) Decreased GFR (Acute) Viral syndrome (Acute) Bilateral leg edema (Acute) Colonoscopy refused (Acute) Urinary incontinence (Acute 02/11/15) Urge incontinence (Chronic) Elevated cholesterol (Chronic) Fracture of radial neck, left, closed (Acute) H/O endarterectomy (Chronic) Non-adherence to medical treatment (Acute) Type 2 diabetes mellitus (Chronic) Sinus bradycardia (Chronic) S/p pacemaker. Generator change 12/2013 [facility] [place] [facility]). Pocket revision & new RV lead 10/2014 [facility] [place] Postmenopausal (Chronic) LMP ~2004 Paranoia (Chronic 12/19/16) Meralgia paresthetica, right lower limb (Chronic 11/05/15) Dr. 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 Congenital single kidney (Chronic 03/08/15) by xray from [facility] 03/17/09 in scanned records Adult BMI > 30 (Chronic 06/07/15) Medical History (Updated 07/03/22 @ 19:14 by SARA Del Castillo) Bipolar 1 disorder Depression End stage renal disease 07/21/20 [facility] [place] Hem[place]ialysis patient Hypertension (~06/20/19) Goal <130/80 [facility] Onychomycosis 06/08/22 Rd Uriarte DPM Pacemaker (10/22/14) for bradycardia and sinus node dysfunction DDD pacer 2004 in [place] Medtronic dual lead programmed VVI - PG replaced 01/01/2014 [facility] [place] Old RV lead abandoned PAD (peripheral artery disease) (08/13/17) PTSD (post-traumatic stress disorder) (05/28/17) Seizure Sinus node dysfunction (10/22/14) Stroke R parietal; asymptomatic; Toe pain, bilateral 06/08/22 Rd Uriarte DPM Type 2 diabetes mellitus with diabetic polyneuropathy Surgical History aortobifemoral bypass (09/07/17) [facility] [place]. August 2017 section (~1985) Pacemaker (~2004) [facility]ian S/P angioplasty (01/30/18) left femoral endarterectomy and patch angioplasty, Aortogram, Over the wire Left ABF graft thrombectomy, Open ledt ABF thrombectomy, left ABF graft stent (VBX 8x39) S/P aortobifemoral bypass surgery Family History Mother No problems noted. Father No problems noted. Sister No problems noted. Social History Smoking/Tobacco Use Status: Former Tobacco Use Quit Date: 03/03/21 Pack-years: 37 Smoking risk assessment performed?: Yes Alcohol Intake: never Drug use: Never Substance use type: does not use Adopted: No Number of Children: 1 Do you need help understanding health information?: Always current occupation: disabliilty What type of physical activity do you participate in: walking Duration: 15-30 minutes/day Frequency: 3-4 times per week Do you feel safe at home: Yes Do you feel safe in your relationship?: Yes Exam Const General: cooperative, comfortable, no acute distress, well developed, well groomed and ill appearing chronically Nutritional Appearance: average body habitus and well nourished Orientation: alert, awake and oriented x3 HENMT Head: normal to inspection, no palpable skull fracture, normocephalic and atraumatic Ears: hearing grossly normal bilaterally, external ears normal and TM's normal bilaterally General nose exam: external nose normal Mouth: oral mucosae normal and moist mucous membranes Throat: posterior oropharynx normal Eyes General: appearance normal, both eyes and all related structures Alignment and Position: alignment normal Periorbital: periorbital findings normal Eyelids: eyelids normal Sclera: sclerae normal Cornea: corneas normal Pupils: PERRL EOM: EOM intact bilaterally and No nystagmus Neck Neck: normal visual inspection, full ROM, no lymphadenopathy and no meningeal signs Resp Effort & Inspection: normal respiratory effort, able to speak in complete sentences and no respiratory distress Auscultation: clear to auscultation bilaterally, no rales, no rhonchi and no wheezes Cardio Rate: regular rate Rhythm: regular rhythm Heart Sounds: S1 normal and S2 normal GI Inspection: normal to inspection and non-distended Palpation: soft, no hepatosplenomegaly, not firm, no guarding, not rigid and nontender Percussion: normal to percussion Auscultation: normal bowel sounds Back/Spine/Pelvis Cervical Spine: normal cervical lordosis and cervical ROM normal Skin General skin exam: no rashes or lesions noted Neuro General: patient alert, patient awake and patient oriented x3 Cranial Nerves: CN's II-XI intact bilaterally and no nystagmus Cognition: normal cognition Speech: speech normal Gait: normal gait (Ambulates with walker at baseline) Motor: muscle tone normal throughout, strength 5/5 throughout, no pronator drift, no movement abnormalities noted and no fasciculations Sensory Exam: no sensory deficits noted Coordination: [id number] test normal and [id number] test normal Extrem General: normal to inspection, capillary refill normal, no pedal edema and no calf tenderness Course Vital Signs Vital signs: Vital Signs Temperature 36.2 C L 07/03/22 15:43 Pulse 57 L 07/03/22 15:43 Respiratory Rate 20 07/03/22 15:43 Blood Pressure 141/64 H 07/03/22 15:43 Pulse Oximetry 98 07/03/22 15:43 Temperature 36.2 C L 07/03/22 15:43 Temperature Source Oral 07/03/22 15:43 Pulse 57 L 07/03/22 15:43 Respiratory Rate 20 07/03/22 15:43 Respiratory Effort Normal, Non-Labored 07/03/22 15:52 Blood Pressure 141/64 H 07/03/22 15:43 Blood Pressure Position Sitting 07/03/22 15:43 Pulse Oximetry 98 07/03/22 15:43 Oxygen Delivery Method Room Air 07/03/22 15:43 Oxygen Flow Rate 0 07/03/22 15:43
--- NOTE | 2022-07-03 16:15 | RT.EKG_ITS ---
APPROVED REPORT Exam: Resting ECG Reason for Exam: dizziness Patient Location: E HR:53 bpm ECG Measurements Heart Rate 53 AXIS PA 202 P 54 QRSd 112 QRS -44 QT 537 T 90 QTc 507 Conclusion Sinus bradycardia...rate< 60 Borderline prolonged PA interval...PA >202, V-rate 50- 90 Left anterior fascicular block...axis(240,-40), init forces inf Low voltage, precordial leads...precordial leads <1.0mV Anteroseptal infarct, old...Q >40mS, V1-V2
[2022-07-03 16:41] LABS: Abs Immature Grans 0.02 10^3/uL (0.0-0.06); Absolute Basophil Count 0.05 10^3/uL (0.0-0.2); Absolute Lymphocyte Count 0.96 10^3/uL (1.2-3.4); Absolute Monocyte Count 0.48 10^3/uL (0.1-0.8); Absolute Neutrophil Count 4.62 10^3/uL (1.2-6.7); Basophils % 0.8; Eosinophils % 1.6; HCT 32.2 % (36.0-46.0); HGB 10.1 g/dL (11.2-15.7); Immature Grans % 0.3; Lymphocytes % 15.4; MCH 29.9 pg (27.0-33.0); MCHC 31.4 % (32.0-36.0); MCV 95 fL (80-95); Monocytes % 7.7; Neutrophils % 74.2; Platelet Count 343 10^3/uL (130-400); RBC 3.38 10^6/uL (3.93-5.22); RDW 15.1 % (11.7-14.6); RDW-SD 52.9 fL; WBC 6.23 10^3/uL (4.4-10.8)
[2022-07-03] MEDS: Meclizine 12.5 MG TAB PO (16:45)
[2022-07-03 18:51] LABS: AST 30 U/L (15-37); Albumin 3.5 g/dL (3.4-5.0); Alkaline Phosphatase 290 U/L (46-116); Anion Gap 9.6 mmol/L (3-11); BUN 10 mg/dL (7-18); Bilirubin, Total 0.6 mg/dL (0.2-1.0); CO2 34.4 mmol/L (21.0-32.0); CREATININE 2.8 mg/dL (0.55-1.02); Calcium 9.7 mg/dL (8.5-10.1); Chloride 94 mmol/L (98-107); Estimated GFR 18.75 (mL/min/1.73m2); Glucose 64 mg/dL (74-106); Magnesium 2.3 mg/dL (1.8-2.4); Potassium 3.1 mmol/L (3.5-5.1); Sodium 138 mmol/L (136-145); Total Protein 8.1 g/dL (6.4-8.2); Troponin I < 50 ng/L (<or=60)
[2022-07-03 18:53] LABS: ALT < 6 U/L (14-59)
== END 2022-07-03 19:26 | disposition home or self-care (01) ==
PROVIDERS: Emergency Provider Physician Assistant; PCP Nurse Practitioner
DX: R42 Dizziness and giddiness (principal)
CPT/HCPCS: 36415; 80053; 93005; 99283; 83735; 84484; 85025; 93010; 99284

== ENCOUNTER → 2022-10-11 09:05 | Outpatient (BNVA) | payer MEDICARE, MEDICAID, SELFPAY | PROVIDERS: PCP Nurse Practitioner; Referring Provider Nurse Practitioner; Visit Provider Physician Assistant | DX: R00.1 Bradycardia, unspecified (principal); Z45.018 Encounter for adjustment and management of other part of cardiac pacemaker | CPT/HCPCS: 93279 ==

== ENCOUNTER 2022-11-10 22:55 | Emergency (ER) | payer MEDICARE, MEDICAID, SELFPAY ==
[2022-11-10] VITALS (14 sets, daily range): BP systolic 155–168; BP diastolic 68–86; PULSE 58–65; RESP 16; TEMP 36.4; O2SAT 91–96
--- NOTE | 2022-11-10 23:00 | DI.RAD_ITS ---
Exam(s) XR CHEST 2V PA LATERAL EXAM: XR CHEST 2V PA LATERAL CLINICAL HISTORY: pulled out right subclavian dialysis port, on AC TECHNIQUE: 2D digital imaging was performed of the chest. Two images were obtained. PA and lateral views were obtained. COMPARISON: CR,XR XR CHEST 1V IN DI DEPT from 12/18/2021 CR,XR XR PORTABLE CHEST AP from 06/29/2022 FINDINGS: MEDIASTINUM: Normal. HEART: Normal. Cardiac pacing wires are again seen. There is no change in the appearance of any of t he wires compared to prior examinations. PULMONARY VASCULATURE: Normal. LUNGS: Clear. PLEURAL SPACE: No pleural effusion or pneumothorax. BONE:Within normal limits for the patient's age. OTHER FINDINGS:Normal. IMPRESSION: No acute pulmonary findings. DATA REPOSITORY: RADIATION DOSE DELIVERED:
--- NOTE | 2022-11-10 23:06 | W.ED.GENAD ---
Discharge Plan Disposition Patient Disposition: Home Discharge Details Chief Complaint: GenMedical Clinical Impression: Complication associated with dialysis catheter Primary Care Provider: Rosaura Fragoso ED Provider: Wilner Dykes Home Meds and New Rx's Prescriptions: No Action mirtazapine 15 mg tablet 15 mg PO QHS sevelamer carbonate [Renvela] 800 mg tablet 800 mg PO TID Rx Instructions: must administer with a meal/food acetylcysteine [NAC] 600 mg capsule 600 mg PO BID acetaminophen [Acetaminophen Extra Strength] 500 mg tablet 1,000 mg PO BID PRN (Reason: fever or pain) insulin glargine [Basaglar KwikPen U-100 Insulin] 100 unit/mL (3 mL) insulin pen 25 unit subcut QAM Qty: 21 3RF (DME) Blood Glucose Test strip See Dose Instructions .ROUTE .MEDSUPPLY Qty: 300 3RF Dose Instruction: As directed Rx Instructions: Test TID (DME) Adult Briefs - Large misc See Dose Instructions .ROUTE .MEDSUPPLY Qty: 150 12RF Dose Instruction: As directed Rx Instructions: Change as directed (DME) shower chair with arms, with slide to tub Large See Rx Instructions .Route .MEDSUPPLY Qty: 1 0RF Rx Instructions: As directed (DME) raised toilet seat oblong toilet See Rx Instructions .Route .MEDSUPPLY Qty: 1 0RF Rx Instructions: As directed omeprazole 40 mg capsule,delayed release(DR/EC) 40 mg PO DAILY Qty: 90 3RF lamotrigine 100 mg tablet 100 mg PO BID Patient Comments: Increased to bid at [place] d/c lorazepam 1 mg tablet 1 mg PO HS Patient Comments: may also take 0.5mg once daily if needed. (reported progress note [facility] 05/02/18) benztropine 0.5 mg tablet 0.5 mg PO HS Rx Instructions: Note dated 02/13/19 [facility] multivitamin [Daily Multi-Vitamin] Tablet 1 tab PO DAILY Qty: 90 3RF cyanocobalamin (vitamin B-12) [Vitamin B-12] 500 mcg tablet 500 mcg PO DAILY nystatin 100,000 unit/gram powder 1 applic topical BID Qty: 60 1RF Rx Instructions: apply liberal amount to affected areas of rash to breasts until resolved Vraylar 1.5 mg capsule 1.5 mg PO DAILY Rx Instructions: as of 10/27/20 w/ permission from Dr. Pedersen via [facility] atorvastatin 40 mg tablet 40 mg PO DAILY Qty: 90 3RF Eliquis 5 mg tablet See Rx Instructions .ROUTE .COMPLEX Qty: 90 1RF Dose Instruction: TAKE 1/2 TABLET BY MOUTH TWO TIMES A DAY Rx Instructions: TAKE 1/2 TABLET BY MOUTH TWO TIMES A DAY insulin aspart U-100 [Novolog FlexPen U-100 Insulin] 100 unit/mL (3 mL) insulin pen See Rx Instructions subcut AC Qty: 15 3RF Rx Instructions: 2-10u based on sliding scale before meals. aspirin 81 mg tablet,delayed release (DR/EC) See Rx Instructions .ROUTE .COMPLEX Qty: 90 3RF Dose Instruction: TAKE ONE TABLET BY MOUTH DAILY Rx Instructions: TAKE ONE TABLET BY MOUTH DAILY (DME) pen needle, diabetic 31 gauge x 1/3 needle 1 ea Miscellaneous QID Qty: 100 3RF Rx Instructions: BD Ultrafine Vane 4mm/32G For DM E11.65 A1C<7 manage freq. hyperglycemic episodes (DME) Commode See Rx Instructions .Route .MEDSUPPLY Qty: 1 0RF Rx Instructions: Raised toilet seat not safe for the patient. amlodipine 10 mg tablet 10 mg PO DAILY Qty: 90 0RF carvedilol 12.5 mg tablet See Rx Instructions .ROUTE .COMPLEX Qty: 180 3RF Dose Instruction: TAKE ONE TABLET BY MOUTH TWO TIMES A DAY WITH MEAL OR FOOD INCREASED BY [facility] 05/26/21 Rx Instructions: TAKE ONE TABLET BY MOUTH TWO TIMES A DAY WITH MEAL OR FOOD INCREASED BY [facility] 05/26/21 meclizine 12.5 mg tablet 12.5 mg PO TID PRN (Reason: dizziness) Qty: 60 0RF cefazolin 1 gram recon soln IV .T,,Sat polyethylene glycol 3350 17 gram/dose powder 17 g PO DAILY PRN (Reason: constipation) sennosides-docusate sodium [Senna with Docusate Sodium] 8.6-50 mg tablet 2 tab-cap PO BID PRN (Reason: constipation) fosinopril 40 mg tablet 40 mg PO DAILY Discharge Instructions Additional Instructions: [facility] interventional radiology team will be reaching out regarding your appointment on Sunday to have your dialysis catheter replaced. Please follow-up with your primary care physician and bulk plant manager regarding findings concerning your pacemaker. Please return to the emergency department for any worsening symptoms. Medical Decision Making 62-year-old female history of CKD diabetes, on hemodialysis Sunday presents after accidentally dislodging her right subclavian dialysis catheter, unknown mechanism, catheter completely dislodged still sutured to skin, subclavian insertion site hemostatic, patient does appear pale with pale conjunctiva and pale skin however is maintaining her hemodynamics without tachycardia or hypotension. Will obtain basic labs PT/INR type and screen, screening chest x-ray; patient will likely need transfer for reinsertion of hemodialysis catheter. Will assess and monitor for signs of continued bleeding 1: 34 patient remains hemodynamically stable. Labs and imaging unremarkable. Of note incidental possible fractures to her pacemaker wires. No chest pain or shortness of breath no presyncope. Was able to coordinate with interventional radiology at [facility] who has set patient up for an appointment on Sunday to have her dialysis catheter replaced. Patient to follow with her primary care doctor and bulk plant manager regarding her pacemaker finding. Given home care instructions and return precautions HPI General Date/Time Provider Initiated Documentation: 11/10/22 22:56. HPI Narrative: 62-year-old female history of diabetes CKD on hemodialysis Sunday presents after accidentally completely dislodging her right subclavian dialysis catheter this evening, area is now hemostatic, patient is on blood thinners. Related Data Home Medications Medication Instructions Recorded Confirmed blood sugar diagnostic (Blood #300 ea 05/06/18 11/07/22 Glucose Test strips) lamotrigine 100 mg tablet 100 mg PO BID 05/09/18 11/10/22 lorazepam 1 mg tablet 1 mg PO HS 05/09/18 11/10/22 diaper,brief,adult,disposable #150 ea 07/25/18 11/07/22 (Adult Briefs - Large) benztropine 0.5 mg tablet 0.5 mg PO HS 03/06/19 11/10/22 multivitamin (Daily Multi-Vitamin 1 tab PO DAILY #90 tabs 05/15/19 11/10/22 tablet) cyanocobalamin (vitamin B-12) 500 500 mcg PO DAILY 08/05/19 11/10/22 mcg tablet (Vitamin B-12) nystatin 100,000 unit/gram topical 1 applic topical BID #60 grams 02/04/20 11/10/22 powder acetylcysteine 600 mg capsule (NAC) 600 mg PO BID 02/11/20 11/10/22 mirtazapine 15 mg tablet 15 mg PO QHS 02/11/20 11/10/22 sevelamer carbonate 800 mg tablet 800 mg PO TID 02/11/20 11/10/22 (Renvela) acetaminophen 500 mg tablet 1,000 mg PO BID PRN fever or pain 07/06/20 11/10/22 (Acetaminophen Extra Strength) cariprazine 1.5 mg capsule 1.5 mg PO DAILY 10/27/20 11/10/22 (Vraylar) atorvastatin 40 mg tablet 40 mg PO DAILY #90 tabs 03/13/22 11/10/22 insulin glargine 100 unit/mL (3 25 unit (0.25 mL) subcut QAM #21 mL 05/18/22 11/10/22 mL) subcutaneous pen (Basaglar KwikPen U-100 Insulin) apixaban 5 mg tablet (Eliquis) See Rx Instructions .Route 05/29/22 11/10/22 .COMPLEX #90 tabs insulin aspart U-100 100 unit/mL See Rx Instructions subcut AC #15 07/03/22 11/10/22 (3 mL) subcutaneous pen (Novolog mL FlexPen U-100 Insulin aspart) omeprazole 40 mg capsule,delayed 40 mg PO DAILY #90 caps 07/13/22 11/10/22 release raised toilet seat #1 ea 07/13/22 11/07/22 shower chair with arms, with slide #1 ea 07/13/22 11/07/22 to tub aspirin 81 mg tablet,delayed See Rx Instructions .Route 07/20/22 11/10/22 release .COMPLEX #90 tabs pen needle, diabetic 31 gauge x #100 ea 07/31/22 11/07/2204/25 Commode #1 ea 08/21/22 11/07/22 amlodipine 10 mg tablet 10 mg PO DAILY #90 tabs 08/21/22 11/10/22 carvedilol 12.5 mg tablet See Rx Instructions .Route 08/28/22 11/10/22 .COMPLEX #180 tabs cefazolin 1 gram intravenous g IV .T,TH,Sat with HD 11/06/22 11/07/22 solution meclizine 12.5 mg tablet 12.5 mg PO TID PRN dizziness #60 11/06/22 11/10/22 tabs polyethylene glycol 3350 17 17 g PO DAILY PRN constipation 11/06/22 11/10/22 gram/dose oral powder sennosides 8.6 mg-docusate sodium 2 tab-cap PO BID PRN constipation 11/06/22 11/10/22 50 mg tablet (Senna with Docusate Sodium) fosinopril 40 mg tablet 40 mg PO DAILY 11/07/22 11/10/22 Previous Rx's Medication Instructions Recorded blood sugar diagnostic (Blood #300 ea 05/06/18 Glucose Test strips) diaper,brief,adult,disposable #150 ea 07/25/18 (Adult Briefs - Large) multivitamin (Daily Multi-Vitamin 1 tab PO DAILY #90 tabs 05/15/19 tablet) nystatin 100,000 unit/gram topical 1 applic topical BID #60 grams 02/04/20 powder atorvastatin 40 mg tablet 40 mg PO DAILY #90 tabs 03/13/22 insulin glargine 100 unit/mL (3 25 unit (0.25 mL) subcut QAM #21 mL 05/18/22 mL) subcutaneous pen (Basaglar KwikPen U-100 Insulin) apixaban 5 mg tablet (Eliquis) See Rx Instructions .Route 05/29/22 .COMPLEX #90 tabs insulin aspart U-100 100 unit/mL See Rx Instructions subcut AC #15 07/03/22 (3 mL) subcutaneous pen (Novolog mL FlexPen U-100 Insulin aspart) omeprazole 40 mg capsule,delayed 40 mg PO DAILY #90 caps 07/13/22 release raised toilet seat #1 ea 07/13/22 shower chair with arms, with slide #1 ea 07/13/22 to tub aspirin 81 mg tablet,delayed See Rx Instructions .Route 07/20/22 release .COMPLEX #90 tabs pen needle, diabetic 31 gauge x #100 ea 07/31/2204/25 Commode #1 ea 08/21/22 amlodipine 10 mg tablet 10 mg PO DAILY #90 tabs 08/21/22 carvedilol 12.5 mg tablet See Rx Instructions .Route 08/28/22 .COMPLEX #180 tabs meclizine 12.5 mg tablet 12.5 mg PO TID PRN dizziness #60 11/06/22 tabs Allergies Allergy/AdvReac Type Severity Reaction Status Date / Time aripiprazole [From Abilify] Allergy Severe Verified 11/10/22 23:01 duloxetine HCl Allergy Severe Hives Verified 11/10/22 23:01 [From Cymbalta] oxycodone Allergy Severe Hives Verified 11/10/22 23:01 Sulfa (Sulfonamide Allergy Severe Skin Rash Verified 11/10/22 23:01 Antibiotics) amitriptyline Allergy Intermediate Verified 11/10/22 23:01 citalopram Allergy Intermediate HIVES Verified 11/10/22 23:01 fesoterodine Allergy Intermediate HIVES Verified 11/10/22 23:01 latex Allergy Intermediate Hives Verified 11/10/22 23:01 rabies vaccine, human Allergy Intermediate Verified 11/10/22 23:01 diploid cell [Rabies Vaccine,Human Diploid] Tetanus Vaccines and Toxoid Allergy Intermediate Swelling/Ed Verified 11/10/22 23:01 [Tetanus Vaccines & Toxoid] ghulam acetaminophen [From Vicodin] Allergy Unknown Verified 11/10/22 23:01 bupropion HCl Allergy Unknown Verified 11/10/22 23:01 [From Wellbutrin] celecoxib [From Celebrex] Allergy Unknown Verified 11/10/22 23:01 diazepam [From Valium] Allergy Unknown Verified 11/10/22 23:01 divalproex sodium Allergy Unknown Verified 11/10/22 23:01 [From Depakote] escitalopram oxalate Allergy Unknown Verified 11/10/22 23:01 [From Lexapro] fluoxetine HCl [From Prozac] Allergy Unknown Verified 11/10/22 23:01 fosphenytoin sodium Allergy Unknown Verified 11/10/22 23:01 [From Cerebyx] hydrocodone bitartrate Allergy Unknown Verified 11/10/22 23:01 [From Vicodin] morphine Allergy Unknown Verified 11/10/22 23:01 nicotine [From Nicoderm CQ] Allergy Unknown rash/hives Verified 11/10/22 23:01 paroxetine HCl [From Paxil] Allergy Unknown Verified 11/10/22 23:01 phenytoin sodium Allergy Unknown Verified 11/10/22 23:01 [From Dilantin] phenytoin sodium extended Allergy Unknown Verified 11/10/22 23:01 [From Dilantin] prednisone Allergy Unknown Verified 11/10/22 23:01 procaine HCl [From Novocain] Allergy Unknown Verified 11/10/22 23:01 quetiapine Allergy Unknown Verified 11/10/22 23:01 quetiapine fumarate Allergy Unknown Verified 11/10/22 23:01 [From Seroquel] risperidone [From Risperdal] Allergy Unknown Verified 11/10/22 23:01 sertraline Allergy Unknown Hives Verified 11/10/22 23:01 trazodone Allergy Unknown Verified 11/10/22 23:01 venlafaxine HCl Allergy Unknown Verified 11/10/22 23:01 [From Effexor] warfarin [From Coumadin] Allergy none Verified 11/10/22 23:01 listed on referral thiothixene [Thiothixene] AdvReac Severe Nausea Verified 11/10/22 23:01 topiramate AdvReac Intermediate Nausea Verified 11/10/22 23:01 gabapentin AdvReac Unknown Severe Verified 11/10/22 23:01 dizziness, runs; vomiting lidocaine AdvReac Unknown Nausea Verified 11/10/22 23:01 ibuprofen AdvReac headache Verified 11/10/22 23:01 and nausea melatonin AdvReac nightmares Verified 11/10/22 23:01 varenicline tartrate AdvReac Psychosis Verified 11/10/22 23:01 [From Chantix] ABSOLUTE CONTRAINDICATION AdvReac Severe Headache Uncoded 11/10/22 23:01 FOR MRI (disconnected RV pacer lead) general anesthia AdvReac Unknown Uncoded 11/10/22 23:01 General Stated Complaint: GenMedical ASIM: 3 Review of Systems Narrative: Review of Systems Constitutional: negative Eyes: negative ENT: negative Cardiovascular: negative Respiratory: negative Gastrointestinal: negative : negative Musculoskeletal: negative Skin: negative Neurologic: negative Psych: negative PFSH All Active Problems (Updated 11/11/22 @ 01:38 by Wilner Dykes MD) Complication associated with dialysis catheter (Acute) Anemia (Chronic) Atherosclerosis of artery of both lower extremities (Acute) 06/08/22 Rd Uriarte DPM - podiatry visit Reticulocytopenia (Acute) Elevated ferritin (Acute) Dialysis patient (Acute) Fracture of ramus of left pubis (Acute) Hyperlipidemia (Acute) 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 11/15/21 Decision from Transplant Eval that pt is not a candidate for kidney transplant Dysuria (Acute) Memory deficit (Acute) Solitary left kidney (Acute) Decreased GFR (Acute) Viral syndrome (Acute) Bilateral leg edema (Acute) Colonoscopy refused (Acute) Urinary incontinence (Acute 02/11/15) Urge incontinence (Chronic) Elevated cholesterol (Chronic) Fracture of radial neck, left, closed (Acute) H/O endarterectomy (Chronic) Non-adherence to medical treatment (Acute) Type 2 diabetes mellitus (Chronic) Sinus bradycardia (Chronic) S/p pacemaker. Generator change 12/2013 [facility] (Yariel [facility]). Pocket revision & new RV lead 10/2014 [facility]. Postmenopausal (Chronic) LMP ~2004 Paranoia (Chronic 12/19/16) Meralgia paresthetica, right lower limb (Chronic 11/05/15) Dr. 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 Congenital single kidney (Chronic 03/08/15) by xray from [facility] 03/17/09 in scanned records Adult BMI > 30 (Chronic 06/07/15) Medical History (Updated 11/11/22 @ 01:38 by Wilner Dykes MD) Bipolar 1 disorder Depression End stage renal disease 07/21/20 [facility] Hemodialysis patient Hypertension (~06/20/19) Goal <130/80 [facility] Onychomycosis 06/08/22 Rd Uriarte DPM Pacemaker (10/22/14) for bradycardia and sinus node dysfunction DDD pacer 2004 in [place] Medtronic dual lead programmed VVI - PG replaced 01/01/2014 [facility] Old RV lead abandoned PAD (peripheral artery disease) (08/13/17) PTSD (post-traumatic stress disorder) (05/28/17) Seizure Sinus node dysfunction (10/22/14) Stroke R parietal; asymptomatic; Toe pain, bilateral 06/08/22 Rd Uriarte DPM Type 2 diabetes mellitus with diabetic polyneuropathy Surgical History aortobifemoral bypass (09/07/17) [facility] vascular. August 2017 section (~1985) Pacemaker (~2004) [place] S/P angioplasty (01/30/18) left femoral endarterectomy and patch angioplasty, Aortogram, Over the wire Left ABF graft thrombectomy, Open ledt ABF thrombectomy, left ABF graft stent (VBX 8x39) S/P aortobifemoral bypass surgery Family History Mother No problems noted. Father No problems noted. Sister No problems noted. Social History Smoking/Tobacco Use Status: Former Tobacco Use Quit Date: 03/03/21 Pack-years: 37 Smoking risk assessment performed?: Yes Alcohol Intake: never Drug use: Never Substance use type: does not use Adopted: No Number of Children: 1 Do you need help understanding health information?: Always current occupation: disabliilty What type of physical activity do you participate in: walking Duration: 15-30 minutes/day Frequency: 3-4 times per week Do you feel safe at home: Yes Do you feel safe in your relationship?: Yes Exam Narrative Exam Narrative: Physical Examination General: alert, awake, cooperative, resting comfortably, no acute distress HEENT: normocephalic, atraumatic; PERRL, EOM intact, conjunctiva pallor l; no nasal discharge; moist mucous membranes, oral and pharyngeal mucosa normal, tolerating secretions Neck: supple, trachea midline; full ROM Chest: Right subclavian site hemostatic, subclavian catheter completely dislodged still sutured to chest wall Respiratory: normal respiratory effort, speaking in full sentences, clear to auscultation, no wheezing, rales or rhonchi Cardiac: regular rate, regular rhythm, S1S2 intact, no murmurs rubs or gallops; strong radial pulses bilaterally GI: abdomen soft, non-tender, non-distended; no palpable mass or hepatosplenomegaly Skin: Pallor Neuro: AAOx3, normal speech, moving all extremities Psych: Appropriate mood and affect Course Vital Signs Vital signs: Vital Signs Temperature 36.4 C 11/10/22 22:45 Pulse 63 11/10/22 22:45 Respiratory Rate 16 11/10/22 22:45 Blood Pressure 161/78 H 11/10/22 22:45 Temperature 36.4 C 11/10/22 22:45 Temperature Source Oral 11/10/22 22:45 Pulse 63 11/10/22 22:45 Respiratory Rate 16 11/10/22 22:45 Respiratory Effort Normal 11/10/22 22:45 Blood Pressure 161/78 H 11/10/22 22:45 Blood Pressure Position Supine 11/10/22 22:45 Pain Level 5 11/10/22 22:45
[2022-11-10 23:25] LABS: Abs Immature Grans 0.01 10^3/uL (0.0-0.06); Absolute Basophil Count 0.03 10^3/uL (0.0-0.2); Absolute Eosinophil Count 0.05 10^3/uL (0.0-0.7); Absolute Lymphocyte Count 0.53 10^3/uL (1.2-3.4); Absolute Monocyte Count 0.27 10^3/uL (0.1-0.8); Absolute Neutrophil Count 2.85 10^3/uL (1.2-6.7); Basophils % 0.8; Eosinophils % 1.3; HCT 28.9 % (36.0-46.0); HGB 8.9 g/dL (11.2-15.7); Immature Grans % 0.3; Lymphocytes % 14.2; MCHC 30.8 % (32.0-36.0); MCV 97 fL (80-95); MPV 8.6 fL (8.0-11.0); Monocytes % 7.2; Neutrophils % 76.2; Platelet Count 207 10^3/uL (130-400); RBC 2.97 10^6/uL (3.93-5.22); RDW 16.9 % (11.7-14.6); RDW-SD 60.7 fL; WBC 3.74 10^3/uL (4.4-10.8)
[2022-11-10 23:45] LABS: AST 20 U/L (15-37); Albumin 3.2 g/dL (3.4-5.0); Alkaline Phosphatase 211 U/L (46-116); Anion Gap 6.1 mmol/L (3-11); BUN 19 mg/dL (7-18); Bilirubin, Total 0.4 mg/dL (0.2-1.0); CO2 33.9 mmol/L (21.0-32.0); CREATININE 3.4 mg/dL (0.55-1.02); Calcium 8.3 mg/dL (8.5-10.1); Chloride 97 mmol/L (98-107); Estimated GFR 14.76 (mL/min/1.73m2); Glucose 130 mg/dL (74-106); Potassium 3.7 mmol/L (3.5-5.1); Sodium 137 mmol/L (136-145); Total Protein 6.8 g/dL (6.4-8.2)
--- NOTE | 2022-11-10 23:53 | DI.VRAD_ITS ---
PROCEDURE INFORMATION: Exam: XR Chest Exam date and time: 11/10/2022 11:40 PM Age: 62 years old Clinical indication: Other: Pulled out right subclavian dialysis port, on ac TECHNIQUE: Imaging protocol: Radiologic exam of the chest. Views: 2 views. COMPARISON: XR PORTABLE CHEST AP 06/29/2022 7:02 PM FINDINGS: Tubes, catheters and devices: Endograft within brachial vessels on the right. Permanent pacemaker in place, [address], 2 of the wires appear to be broken. 2 of the wires terminate in the region of the right ventricle, single wire terminates in the region of the right atrium. Two of the wires appear to be connected to the generated. Lungs: No consolidation. Pleural spaces: Unremarkable. No pleural effusion. No pneumothorax. Heart/Mediastinum: Cardiac silhouette enlarged. Bones/joints: Unremarkable. IMPRESSION: No large infiltrates or effusions. Permanent pacemaker in place. Two of the 3 wires appear to be broken. Dictated and Authenticated by: Vidal Sanchez MD. Ordering:SHAWNA Darby MD
[2022-11-11] VITALS: O2SAT 91
--- NOTE | 2022-11-11 | RT.EKG_ITS ---
APPROVED REPORT Exam: Resting ECG Reason for Exam: concern for pacer function Patient Location: E HR:60 bpm ECG Measurements Heart Rate 60 AXIS LA 198 P 152 QRSd 106 QRS -24 QT 442 T 149 QTc 443 Conclusion Sinus rhythm...normal P axis, V-rate 60- 99 Probable LVH with secondary repol abnrm...multiple LVH criteria sinus rhythm, left axis, t wave flattening lateral leads
[2022-11-11 00:01] VITALS: BP 156/64; PULSE 58; O2SAT 93
[2022-11-11 00:07] LABS: PTT Activated 27.6 sec (21.5-31.9); Prothrombin Time 10.4 sec (9.3-11.0)
[2022-11-11 00:10] VITALS: PULSE 65; RESP 15; O2SAT 97
[2022-11-11 00:10] LABS: ALT 7 U/L (14-59)
== END 2022-11-11 02:33 | disposition home or self-care (01) ==
PROVIDERS: Emergency Provider Emergency Medicine; PCP Nurse Practitioner
DX: T82.42XA Displacement of vascular dialysis catheter, initial encounter (principal); I12.0 Hypertensive chronic kidney disease with stage 5 chronic kidney disease or end stage renal disease; E11.22 Type 2 diabetes mellitus with diabetic chronic kidney disease; N18.6 End stage renal disease; Z95.0 Presence of cardiac pacemaker; Z90.5 Acquired absence of kidney; Z79.82 Long term (current) use of aspirin; Z79.4 Long term (current) use of insulin; Z79.01 Long term (current) use of anticoagulants; Z99.2 Dependence on renal dialysis; Z87.891 Personal history of nicotine dependence
CPT/HCPCS: 36415; 80053; 86850; 86900; 86901; 93005; 99285; 71046; 85025; 85610; 85730; 93010; 99284

== ENCOUNTER 2022-11-12 09:08 | Emergency (ER) | payer MEDICARE, MEDICAID, SELFPAY ==
[2022-11-12] VITALS (35 sets, daily range): BP systolic 125–206; BP diastolic 73–107; PULSE 60–71; RESP 9–21; TEMP 37.2; O2SAT 93–99
--- NOTE | 2022-11-12 09:30 | DI.CT_ITS ---
Exam(s) CT ABDOMEN PELVIS WO EXAM: CT ABDOMEN PELVIS WO CLINICAL HISTORY: lower abdominal pain. TECHNIQUE: Imaging Protocol: Axial computed tomography images with coronal and sagittal reformatted images were created and reviewed. COMPARISON: CT CTA AORTA W/RUNOFF from 08/17/2017 CT CTA AORTA W/RUNOFF from 10/03/[address] RENAL COLIC WO from 04/09/[address] CHEST/ABD/PEL WO from 06/17/2022 FINDINGS: ABDOMEN: Lung Bases: Normal where visualized. Liver: Normal density. No measurable mass. Gallbladder and biliary tract: Cholelithiasis. No biliary ductal dilatation. Pancreas: There is again seen calcification of the head of the pancreas. This suggest chronic pancre atitis. There is atrophy of the body in the tail of the pancreas. Spleen: There is stable hypodensities in the spleen. Kidneys: The right kidney is absent. There is cortical atrophy of the left kidney.No radiodense ston es or obstructive uropathy. No masses seen. Adrenal glands: No mass is seen. Lymph nodes: Within normal limits. Abdominal Aorta: Atherosclerosis. There is an aorto bi femoral bypass. PELVIS: Bladder:There is diffuse thickening of the wall of the urinary bladder. This may be in part due to u nderdistention. Infectious or inflammatory process cannot be excluded. Bowel: No obstruction or bowel wall thickening. No evidence of appendicitis. Peritoneal cavity: No ascites, collection or mesenteric inflammatory response. No free air. Reproductive organs: Unremarkable as visualized. Bones: Old fractures are again seen of the left superior and inferior pubic rami and the left sacral ala. The bones are osteopenic. Soft Tissues: Within normal limits. IMPRESSION: 1. Healing fractures of the left inferior superior pubic rami on the left sacral ala. No acute fract ure is identified. 2. No acute abdominal or pelvic process. 3. Urinary bladder wall thickening which appears stable. This may be due to underdistention. Cystit is cannot be excluded. Please correlate clinically. 4. Stable cystic lesions of the spleen. RADIATION DOSE DELIVERED: 892.85mGy.cm Total DLP DATA REPOSITORY: All CT scans at this facility are submitted to the National Radiology Data Registry (NRDR) Dose Index Registry (DIR) with the [employer] (ACR). RADIATION OPTIMIZATION: All CT scans at this facility use at least one of these dose optimization te chniques: automated exposure control; mA and/or kV adjustment per patient size (includes targeted exa ms where dose is matched to clinical indication); or iterative reconstruction.
--- NOTE | 2022-11-12 09:34 | ED.GENADUL_ITS ---
Discharge Plan Disposition Patient Disposition: Home Condition: Stable Discharge Details Clinical Impression: Nausea & vomiting Primary Care Provider: Rosaura Fragoso ED Provider: Pernell Dennis Home Meds and New Rx's Prescriptions: New ondansetron 4 mg tablet,disintegrating 4 mg PO Q8H PRN (Reason: nausea and vomiting) Qty: 30 0RF Continued mirtazapine 15 mg tablet 15 mg PO QHS sevelamer carbonate [Renvela] 800 mg tablet 800 mg PO TID Rx Instructions: must administer with a meal/food acetylcysteine [NAC] 600 mg capsule 600 mg PO BID acetaminophen [Acetaminophen Extra Strength] 500 mg tablet 1,000 mg PO BID PRN (Reason: fever or pain) insulin glargine [Basaglar KwikPen U-100 Insulin] 100 unit/mL (3 mL) insulin pen 25 unit subcut QAM Qty: 21 3RF (DME) Blood Glucose Test strip See Dose Instructions .ROUTE .MEDSUPPLY Qty: 300 3RF Dose Instruction: As directed Rx Instructions: Test TID (DME) Adult Briefs - Large misc See Dose Instructions .ROUTE .MEDSUPPLY Qty: 150 12RF Dose Instruction: As directed Rx Instructions: Change as directed (DME) shower chair with arms, with slide to tub Large See Rx Instructions .Route .MEDSUPPLY Qty: 1 0RF Rx Instructions: As directed (DME) raised toilet seat oblong toilet See Rx Instructions .Route .MEDSUPPLY Qty: 1 0RF Rx Instructions: As directed omeprazole 40 mg capsule,delayed release(DR/EC) 40 mg PO DAILY Qty: 90 3RF lamotrigine 100 mg tablet 100 mg PO BID Patient Comments: Increased to bid at Chamberss d/c lorazepam 1 mg tablet 1 mg PO HS Patient Comments: may also take 0.5mg once daily if needed. (reported progress note NES 05/02/18) benztropine 0.5 mg tablet 0.5 mg PO HS Rx Instructions: Note dated 02/13/19 [facility] multivitamin [Daily Multi-Vitamin] Tablet 1 tab PO DAILY Qty: 90 3RF cyanocobalamin (vitamin B-12) [Vitamin B-12] 500 mcg tablet 500 mcg PO DAILY nystatin 100,000 unit/gram powder 1 applic topical BID Qty: 60 1RF Rx Instructions: apply liberal amount to affected areas of rash to breasts until resolved Vraylar 1.5 mg capsule 1.5 mg PO DAILY Rx Instructions: as of 10/27/20 w/ permission from Dr. Pedersen via [facility] atorvastatin 40 mg tablet 40 mg PO DAILY Qty: 90 3RF Eliquis 5 mg tablet See Rx Instructions .ROUTE .COMPLEX Qty: 90 1RF Dose Instruction: TAKE 1/2 TABLET BY MOUTH TWO TIMES A DAY Rx Instructions: TAKE 1/2 TABLET BY MOUTH TWO TIMES A DAY insulin aspart U-100 [Novolog FlexPen U-100 Insulin] 100 unit/mL (3 mL) insulin pen See Rx Instructions subcut AC Qty: 15 3RF Rx Instructions: 2-10u based on sliding scale before meals. aspirin 81 mg tablet,delayed release (/EC) See Rx Instructions .ROUTE .COMPLEX Qty: 90 3RF Dose Instruction: TAKE ONE TABLET BY MOUTH DAILY Rx Instructions: TAKE ONE TABLET BY MOUTH DAILY (DME) pen needle, diabetic 31 gauge x 1/3 needle 1 ea Miscellaneous QID Qty: 100 3RF Rx Instructions: BD Ultrafine Vane 4mm/32G For DM E11.65 A1C<7 manage freq. hyperglycemic episodes (DME) Commode See Rx Instructions .Route .MEDSUPPLY Qty: 1 0RF Rx Instructions: Raised toilet seat not safe for the patient. amlodipine 10 mg tablet 10 mg PO DAILY Qty: 90 0RF carvedilol 12.5 mg tablet See Rx Instructions .ROUTE .COMPLEX Qty: 180 3RF Dose Instruction: TAKE ONE TABLET BY MOUTH TWO TIMES A DAY WITH MEAL OR FOOD INCREAS[place] [facility] [place] Rx Instructions: TAKE ONE TABLET BY MOUTH TWO TIMES A DAY WITH MEAL OR FOOD INCREASED [place] [facility] 05/26[place]21 meclizine 12.5 mg tablet 12.5 mg PO TID PRN (Reason: dizziness) Qty: 60 0RF cefazolin 1 gram recon soln 1 g IV .T,,Sat polyethylene glycol 3350 17 gram/dose powder 17 g PO DAILY PRN (Reason: constipation) sennosides-docusate sodium [Senna with Docusate Sodium] 8.6-50 mg tablet 2 tab-cap PO BID PRN (Reason: constipation) fosinopril 40 mg tablet 40 mg PO DAILY Discharge Instructions Instructions: Acute Nausea and Vomiting (ED) Additional Instructions: Follow up as scheduled for your catheter placement tomorrow and also follow up with your primary care provider within 1 week if you feel more ill, have severe worsening pain or vomiting despite the medication return to the emergency department Medical Decision Making 62 yo female with hx of esrd on dialysis mwf and is due to have her catheter replaced tomorrow at [facility] [place] after it was accidentally pulled out, who is receiving cefazolin during dialysis after being found with mssa infection of prior dialysis graft, who comes in with 3 days of n/v and lower abdominal cramping. Denies fevers, chills, chest pain, dyspnea. She is hypertensive on arrival otherwise stable vital signs. She has a soft abdomen with tenderness in the rlq and llq without guarding or rebound. Given her symptoms will proceed with cbc, cmp, lipase and ct abd/pelvis without to evaluate for possible diverticulitis, sbo and appendicitis. pt's labs and imaging shows no acute findings, ct shows stable cystic lesions in her spleen which she is already aware of and advised to discuss further with her pcp, has healing pubic rami fractures and stable bladder wall thickening, makes very little urine and has not had any burning when she does urinate. She is feeling better tolerating po and has n/v or abd tenderness now on exam. Is hypertensive but hasn't had her BP medications in a few days so advised to resume these, advised to f/u with dialysis tomorrow and her pcp within a week, return precautions given Differential Diagnosis Differential Diagnosis: diverticulitis, gastroenteritis. HPI General Date/Time Provider Initiated Documentation: 11/12/22 09:09 . Limitations to Documentation: no limitations . Information obtained by: patient . History of Present Illness 62 year old F presents to the emergency department with the chief complaint of n/v, described as moderate, Patient started experiencing this day(s) (3) and it has been constant. No relieving factors improve symptom(s), No exacerbating factors reported . Patient notes denies chest pain, fever/chills and shortness of breath. Patient did receive the following treatments prior to arrival, none Related Data Home Medications Medication Instructions Recorded Confirmed blood sugar diagnostic (Blood #300 ea 05/06/18 11/12/22 Glucose Test strips) lamotrigine 100 mg tablet 100 mg PO BID 05/09/18 11/12/22 lorazepam 1 mg tablet 1 mg PO HS 05/09/18 11/12/22 diaper,brief,adult,disposable #150 ea 07/25/18 11/12/22 (Adult Briefs - Large) benztropine 0.5 mg tablet 0.5 mg PO HS 03/06/19 11/12/22 multivitamin (Daily Multi-Vitamin 1 tab PO DAILY #90 tabs 05/15/19 11/12/22 tablet) cyanocobalamin (vitamin B-12) 500 500 mcg PO DAILY 08/05/19 11/12/22 mcg tablet (Vitamin B-12) nystatin 100,000 unit/gram topical 1 applic topical BID #60 grams 02/04/20 11/12/22 powder acetylcysteine 600 mg capsule (NAC) 600 mg PO BID 02/11/20 11/12/22 mirtazapine 15 mg tablet 15 mg PO QHS 02/11/20 11/12/22 sevelamer carbonate 800 mg tablet 800 mg PO TID 02/11/20 11/12/22 (Renvela) acetaminophen 500 mg tablet 1,000 mg PO BID PRN fever or pain 07/06/20 11/12/22 (Acetaminophen Extra Strength) cariprazine 1.5 mg capsule 1.5 mg PO DAILY 10/27/20 11/12/22 (Vraylar) atorvastatin 40 mg tablet 40 mg PO DAILY #90 tabs 03/13/22 11/12/22 insulin glargine 100 unit/mL (3 25 unit (0.25 mL) subcut QAM #21 mL 05/18/22 11/12/22 mL) subcutaneous pen (Basaglar KwikPen U-100 Insulin) apixaban 5 mg tablet (Eliquis) See Rx Instructions .Route 05/29/22 11/12/22 .COMPLEX #90 tabs insulin aspart U-100 100 unit/mL See Rx Instructions subcut AC #15 07/03/22 11/12/22 (3 mL) subcutaneous pen (Novolog mL FlexPen U-100 Insulin aspart) omeprazole 40 mg capsule,delayed 40 mg PO DAILY #90 caps 07/13/22 11/12/22 release raised toilet seat #1 ea 07/13/22 11/07/22 shower chair with arms, with slide #1 ea 07/13/22 11/07/22 to tub aspirin 81 mg tablet,delayed See Rx Instructions .Route 07/20/22 11/12/22 release .COMPLEX #90 tabs pen needle, diabetic 31 gauge x #100 ea 07/31/22 11/12/2204/25 Commode #1 ea 08/21/22 11/07/22 amlodipine 10 mg tablet 10 mg PO DAILY #90 tabs 08/21/22 11/12/22 carvedilol 12.5 mg tablet See Rx Instructions .Route 08/28/22 11/12/22 .COMPLEX #180 tabs cefazolin 1 gram intravenous 1 g IV .T,TH,Sat with HD 11/06/22 11/12/22 solution meclizine 12.5 mg tablet 12.5 mg PO TID PRN dizziness #60 11/06/22 11/12/22 tabs polyethylene glycol 3350 17 17 g PO DAILY PRN constipation 11/06/22 11/12/22 gram/dose oral powder sennosides 8.6 mg-docusate sodium 2 tab-cap PO BID PRN constipation 11/06/22 11/12/22 50 mg tablet (Senna with Docusate Sodium) fosinopril 40 mg tablet 40 mg PO DAILY 11/07/22 11/12/22 ondansetron 4 mg disintegrating 4 mg PO Q8H PRN nausea and 11/12/22 tablet vomiting #30 tabs Previous Rx's Medication Instructions Recorded blood sugar diagnostic (Blood #300 ea 05/06/18 Glucose Test strips) diaper,brief,adult,disposable #150 ea 07/25/18 (Adult Briefs - Large) multivitamin (Daily Multi-Vitamin 1 tab PO DAILY #90 tabs 05/15/19 tablet) nystatin 100,000 unit/gram topical 1 applic topical BID #60 grams 02/04/20 powder atorvastatin 40 mg tablet 40 mg PO DAILY #90 tabs 03/13/22 insulin glargine 100 unit/mL (3 25 unit (0.25 mL) subcut QAM #21 mL 05/18/22 mL) subcutaneous pen (Basaglar KwikPen U-100 Insulin) apixaban 5 mg tablet (Eliquis) See Rx Instructions .Route 05/29/22 .COMPLEX #90 tabs insulin aspart U-100 100 unit/mL See Rx Instructions subcut AC #15 07/03/22 (3 mL) subcutaneous pen (Novolog mL FlexPen U-100 Insulin aspart) omeprazole 40 mg capsule,delayed 40 mg PO DAILY #90 caps 07/13/22 release raised toilet seat #1 ea 07/13/22 shower chair with arms, with slide #1 ea 07/13/22 to tub aspirin 81 mg tablet,delayed See Rx Instructions .Route 07/20/22 release .COMPLEX #90 tabs pen needle, diabetic 31 gauge x #100 ea 07/31/2204/25 Commode #1 ea 08/21/22 amlodipine 10 mg tablet 10 mg PO DAILY #90 tabs 08/21/22 carvedilol 12.5 mg tablet See Rx Instructions .Route 08/28/22 .COMPLEX #180 tabs meclizine 12.5 mg tablet 12.5 mg PO TID PRN dizziness #60 11/06/22 tabs ondansetron 4 mg disintegrating 4 mg PO Q8H PRN nausea and 11/12/22 tablet vomiting #30 tabs Allergies Allergy/AdvReac Type Severity Reaction Status Date / Time aripiprazole [From Abilify] Allergy Severe Verified 11/10/22 23:01 duloxetine HCl Allergy Severe Hives Verified 11/10/22 23:01 [From Cymbalta] oxycodone Allergy Severe Hives Verified 11/10/22 23:01 Sulfa (Sulfonamide Allergy Severe Skin Rash Verified 11/10/22 23:01 Antibiotics) amitriptyline Allergy Intermediate Verified 11/10/22 23:01 citalopram Allergy Intermediate HIVES Verified 11/10/22 23:01 fesoterodine Allergy Intermediate HIVES Verified 11/10/22 23:01 latex Allergy Intermediate Hives Verified 11/10/22 23:01 rabies vaccine, human Allergy Intermediate Verified 11/10/22 23:01 diploid cell [Rabies Vaccine,Human Diploid] Tetanus Vaccines and Toxoid Allergy Intermediate Swelling/Ed Verified 11/10/22 23:01 [Tetanus Vaccines & Toxoid] ghulam acetaminophen [From Vicodin] Allergy Unknown Verified 11/10/22 23:01 bupropion HCl Allergy Unknown Verified 11/10/22 23:01 [From Wellbutrin] celecoxib [From Celebrex] Allergy Unknown Verified 11/10/22 23:01 diazepam [From Valium] Allergy Unknown Verified 11/10/22 23:01 divalproex sodium Allergy Unknown Verified 11/10/22 23:01 [From Depakote] escitalopram oxalate Allergy Unknown Verified 11/10/22 23:01 [From Lexapro] fluoxetine HCl [From Prozac] Allergy Unknown Verified 11/10/22 23:01 fosphenytoin sodium Allergy Unknown Verified 11/10/22 23:01 [From Cerebyx] hydrocodone bitartrate Allergy Unknown Verified 11/10/22 23:01 [From Vicodin] morphine Allergy Unknown Verified 11/10/22 23:01 nicotine [From Nicoderm CQ] Allergy Unknown rash/hives Verified 11/10/22 23:01 paroxetine HCl [From Paxil] Allergy Unknown Verified 11/10/22 23:01 phenytoin sodium Allergy Unknown Verified 11/10/22 23:01 [From Dilantin] phenytoin sodium extended Allergy Unknown Verified 11/10/22 23:01 [From Dilantin] prednisone Allergy Unknown Verified 11/10/22 23:01 procaine HCl [From Novocain] Allergy Unknown Verified 11/10/22 23:01 quetiapine Allergy Unknown Verified 11/10/22 23:01 quetiapine fumarate Allergy Unknown Verified 11/10/22 23:01 [From Seroquel] risperidone [From Risperdal] Allergy Unknown Verified 11/10/22 23:01 sertraline Allergy Unknown Hives Verified 11/10/22 23:01 trazodone Allergy Unknown Verified 11/10/22 23:01 venlafaxine HCl Allergy Unknown Verified 11/10/22 23:01 [From Effexor] warfarin [From Coumadin] Allergy none Verified 11/10/22 23:01 listed on referral thiothixene [Thiothixene] AdvReac Severe Nausea Verified 11/10/22 23:01 topiramate AdvReac Intermediate Nausea Verified 11/10/22 23:01 gabapentin AdvReac Unknown Severe Verified 11/10/22 23:01 dizziness, runs; vomiting lidocaine AdvReac Unknown Nausea Verified 11/10/22 23:01 ibuprofen AdvReac headache Verified 11/10/22 23:01 and nausea melatonin AdvReac nightmares Verified 11/10/22 23:01 varenicline tartrate AdvReac Psychosis Verified 11/10/22 23:01 [From Chantix] ABSOLUTE CONTRAINDICATION AdvReac Severe Headache Uncoded 11/10/22 23:01 FOR MRI (disconnected RV pacer lead) general anesthia AdvReac Unknown Uncoded 11/10/22 23:01 General Stated Complaint: Abd Prob ASIM: 3 Review of Systems All systems reviewed & are unremarkable except as noted in HPI and below Constitutional Constitutional: Denies chills, Denies fever(s) and Denies weakness Cardiovascular Cardiovascular: Denies chest pain and Denies dyspnea Respiratory Respiratory: Denies cough and Denies dyspnea Gastrointestinal Gastrointestinal: Reports abdominal pain, Reports nausea and Reports vomiting Integumentary/Breasts Skin/Breast: Denies rash Neurologic Neurologic: Denies weakness [facility] All Active Problems (Updated 11/12/22 @ 13:02 by Pernell Dennis MD) Complication associated with dialysis catheter (Acute) Nausea & vomiting (Acute) Anemia (Chronic) Atherosclerosis of artery of both lower extremities (Acute) 06/08/22 Rd Uriarte DPM - podiatry visit Reticulocytopenia (Acute) Elevated ferritin (Acute) Dialysis patient (Acute) Fracture of ramus of left pubis (Acute) Hyperlipidemia (Acute) 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 11/15/21 Decision from Transplant Eval that pt is not a candidate for kidney transplant Dysuria (Acute) Memory deficit (Acute) Solitary left kidney (Acute) Decreased GFR (Acute) Viral syndrome (Acute) Bilateral leg edema (Acute) Colonoscopy refused (Acute) Urinary incontinence (Acute 02/11/15) Urge incontinence (Chronic) Elevated cholesterol (Chronic) Fracture of radial neck, left, closed (Acute) H/O endarterectomy (Chronic) Non-adherence to medical treatment (Acute) Type 2 diabetes mellitus (Chronic) Sinus bradycardia (Chronic) S/p pacemaker. Generator change 12/2013 [facility]ariel [facility]). Pocket revision & new RV lead 10/2014 [facility]. Postmenopausal (Chronic) LMP ~2004 Paranoia (Chronic 12/19/16) Meralgia paresthetica, right lower limb (Chronic 11/05/15) Dr. 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 Congenital single kidney (Chronic 03/08/15) by xray from [facility] 03/17/09 in scanned records Adult BMI > 30 (Chronic 06/07/15) Medical History (Updated 11/12/22 @ 13:02 by Pernell Dennis MD) Bipolar 1 disorder Depression End stage renal disease 07/21/20 [facility] [place] Hypertension (~06/20/19) Goal <130/80 [facility] Onychomycosis 06/08/22 Rd Uriarte DPM Pacemaker (10/22/14) for bradycardia and sinus node dysfunction DDD pacer 2004 in [place] Medtronic dual lead programmed VVI - PG replaced 01/01/2014 [facility] [place] Old RV lead abandoned PAD (peripheral artery disease) (08/13/17) PTSD (post-traumatic stress disorder) (05/28/17) Seizure Sinus node dysfunction (10/22/14) Stroke R parietal; asymptomatic; Toe pain, bilateral 06/08/22 Rd Uriarte DPM Type 2 diabetes mellitus with diabetic polyneuropathy Surgical History aortobifemoral bypass (09/07/17) [facility] [place]. August 2017 section (~1985) Pacemaker (~2004) [facility] S/P angioplasty (01/30/18) left femoral endarterectomy and patch angioplasty, Aortogram, Over the wire Left ABF graft thrombectomy, Open ledt ABF thrombectomy, left ABF graft stent (VBX 8x39) S/P aortobifemoral bypass surgery Family History Mother No problems noted. Father No problems noted. Sister No problems noted. Social History Smoking/Tobacco Use Status: Former Tobacco Use Quit Date: 03/03/21 Pack-years: 37 Smoking risk assessment performed?: Yes Alcohol Intake: never Drug use: Never Substance use type: does not use Adopted: No Number of Children: 1 Do you need help understanding health information?: Always current occupation: disabliilty What type of physical activity do you participate in: walking Duration: 15-30 minutes/day Frequency: 3-4 times per week Do you feel safe at home: Yes Do you feel safe in your relationship?: Yes Exam Const General: no acute distress Orientation: alert HENMT Head: normal to inspection Ears: external ears normal General nose exam: external nose normal Mouth: moist mucous membranes Eyes General: appearance normal, both eyes and all related structures Neck Neck: normal visual inspection Resp Effort & Inspection: normal respiratory effort and able to speak in complete sentences Cardio Rate: regular rate GI Palpation: soft, not firm, no guarding and tender Skin General skin exam: no rashes or lesions noted Neuro General: patient alert and patient oriented x3 Extrem General: normal to inspection Psych Mental Status: mental status grossly normal Course Vital Signs Vital signs: Vital Signs Temperature 37.2 C 11/12/22 09:19 Pulse 66 11/12/22 09:19 Respiratory Rate 20 11/12/22 09:19 Blood Pressure 172/92 H 11/12/22 09:19 Pulse Oximetry 96 11/12/22 09:19 Temperature 37.2 C 11/12/22 09:19 Temperature Source Oral 11/12/22 09:19 Pulse 66 11/12/22 09:19 Respiratory Rate 20 11/12/22 09:19 Respiratory Effort Normal, Non-Labored 11/12/22 09:28 Blood Pressure 172/92 H 11/12/22 09:19 Blood Pressure Position Supine 11/12/22 09:19 Pulse Oximetry 96 11/12/22 09:19
[2022-11-12] MEDS: Ondansetron 4 MG/2 ML VIAL IVP (09:35)
[2022-11-12 11:16] LABS: Abs Immature Grans 0.01 10^3/uL (0.0-0.06); Absolute Basophil Count 0.02 10^3/uL (0.0-0.2); Absolute Eosinophil Count 0.02 10^3/uL (0.0-0.7); Absolute Lymphocyte Count 0.44 10^3/uL (1.2-3.4); Absolute Monocyte Count 0.17 10^3/uL (0.1-0.8); Absolute Neutrophil Count 3.83 10^3/uL (1.2-6.7); Basophils % 0.4; Eosinophils % 0.4; HGB 9.4 g/dL (11.2-15.7); Immature Grans % 0.2; Lymphocytes % 9.8; MCH 30.7 pg (27.0-33.0); MCHC 32.4 % (32.0-36.0); MCV 95 fL (80-95); MPV 8.6 fL (8.0-11.0); Monocytes % 3.8; Neutrophils % 85.4; Platelet Count 182 10^3/uL (130-400); RBC 3.06 10^6/uL (3.93-5.22); RDW 16.3 % (11.7-14.6); RDW-SD 57.2 fL; WBC 4.49 10^3/uL (4.4-10.8)
[2022-11-12 11:26] LABS: INR 1.1 (0.9-1.1); Prothrombin Time 10.7 sec (9.3-11.0)
[2022-11-12 11:29] LABS: AST 17 U/L (15-37); Albumin 3.3 g/dL (3.4-5.0); Alkaline Phosphatase 214 U/L (46-116); Anion Gap 13.3 mmol/L (3-11); BUN 33 mg/dL (7-18); Bilirubin, Total 0.5 mg/dL (0.2-1.0); CO2 30.7 mmol/L (21.0-32.0); Calcium 8.5 mg/dL (8.5-10.1); Chloride 93 mmol/L (98-107); Estimated GFR 7.32 (mL/min/1.73m2); Glucose 86 mg/dL (74-106); Lipase 18 U/L (16-77); Potassium 3.7 mmol/L (3.5-5.1); Sodium 137 mmol/L (136-145); Total Protein 6.9 g/dL (6.4-8.2)
[2022-11-12 11:30] LABS: ALT < 6 U/L (14-59)
[2022-11-12 11:32] LABS: CREATININE 6.1 mg/dL (0.55-1.02)
--- NOTE | 2022-11-12 11:47 | DI.VRAD_ITS ---
PROCEDURE INFORMATION: Exam: CT Abdomen And Pelvis Without Contrast Exam date and time: 11/12/2022 10:27 AM Age: 62 years old Clinical indication: Other: Lower abdominal pain; Patient HX: Wound vac due to infection TECHNIQUE: Imaging protocol: Computed tomography of the abdomen and pelvis without contrast. COMPARISON: CT CHEST/ABD/PEL WO 06/17/2022 5:24 PM FINDINGS: Liver: Normal. No mass. Gallbladder and bile ducts: Cholelithiasis. Pancreas: Pancreatic atrophy with calcifications at the head and uncinate process suggesting chronic pancreatitis. Spleen: Stable cystic lesions in the lateral spleen, larger measures 2.5 x 2 cm. Recommend ultrasound evaluation if not already performed. Adrenal glands: Normal. No mass. Kidneys and ureters: Right kidney absent. No left hydronephrosis. Stomach and bowel: Unremarkable. No obstruction. No mucosal thickening. Appendix: No evidence of appendicitis. Intraperitoneal space: Unremarkable. No free air. No significant fluid collection. Vasculature: Aortobifemoral bypass noted. Evaluation limited without intravenous contrast. Lymph nodes: Unremarkable. No enlarged lymph nodes. Urinary bladder: Stable bladder wall thickening, although not distended for full evaluation. Acute cystitis can not be excluded, recommend correlation with clinical lab values. Reproductive: Unremarkable as visualized. Bones/joints: Healing fractures of the left superior and inferior pubic rami as well as left sacral ala. No acute fracture. Soft tissues: Unremarkable. IMPRESSION: 1. Stable cystic lesions in the lateral spleen, larger measures 2.5 x 2 cm. Recommend ultrasound evaluation if not already performed. 2. Healing fractures of the left superior and inferior pubic rami as well as left sacral ala. No acute fracture. 3. Stable bladder wall thickening, although not distended for full evaluation. Acute cystitis can not be excluded, recommend correlation with clinical lab values. Dictated and Authenticated by: Gladys Salcido MD. Ordering:OSMANI Gimenez MD
== END 2022-11-12 13:12 | disposition home or self-care (01) ==
PROVIDERS: Emergency Provider Emergency Medicine; PCP Nurse Practitioner
DX: R11.2 Nausea with vomiting, unspecified (principal); R10.30 Lower abdominal pain, unspecified; A49.01 Methicillin susceptible Staphylococcus aureus infection, unspecified site; I12.0 Hypertensive chronic kidney disease with stage 5 chronic kidney disease or end stage renal disease; E11.22 Type 2 diabetes mellitus with diabetic chronic kidney disease; N18.6 End stage renal disease; Z90.5 Acquired absence of kidney; Z99.2 Dependence on renal dialysis; Z79.82 Long term (current) use of aspirin; Z79.4 Long term (current) use of insulin; Z79.01 Long term (current) use of anticoagulants; Z87.891 Personal history of nicotine dependence
CPT/HCPCS: 36415; 80053; 83690; 96365; 99284; 74176; 83735; 85025; 85610; 85730; J2405

== ENCOUNTER 2022-11-25 16:03 | Emergency (ER) | payer MEDICARE, MEDICAID, SELFPAY ==
[2022-11-25] VITALS (48 sets, daily range): BP systolic 117–205; BP diastolic 63–123; PULSE 59–89; RESP 12–27; TEMP 37; O2SAT 95–100
--- NOTE | 2022-11-25 16:15 | RT.EKG_ITS ---
APPROVED REPORT Exam: Resting ECG Reason for Exam: altered mental status Patient Location: E HR:60 bpm ECG Measurements Heart Rate [address] 198 P 65 QRSd 108 QRS -54 QT 446 T 19 QTc 444 Conclusion Sinus rhythm... V-rate 60- 99 Probable left ventricular hypertrophy...(RaVL+SV3)xQRSd >[address] segment or T wave abnormalities to suggest occlusive ND
--- NOTE | 2022-11-25 16:15 | DI.CT_ITS ---
Exam(s) CT HEAD WO EXAM: CT HEAD WO CLINICAL HISTORY: new seizure. TECHNIQUE: Imaging Protocol: Axial computed tomography images with coronal and sagittal reformatted images were created and reviewed COMPARISON: CT CT HEAD WO from 06/29/2022 FINDINGS: Ventricles and Extra axial spaces: Dilatation, stable from prior. Hemorrhage: None. Cerebral parenchyma: Atrophy and white matter changes distal portion to the patient's age. Old infar ct right parietal region. No evidence of acute infarct or mass. Midline shift: None. Brainstem/Cerebellum: Normal. Calvarium: Normal. Visualized Paranasal sinuses/Mastoids: Clear. Soft Tissues: Unremarkable. IMPRESSION: Old right parietal infarct. Stable ventricular dilatation. No acute intracranial process. RADIATION DOSE DELIVERED: 678.84mGy.cm Total DLP DATA REPOSITORY: All CT scans at this facility are submitted to the National Radiology Data Registry (NRDR) Dose Index Registry (DIR) with the [employer] ([employer]). RADIATION OPTIMIZATION: All CT scans at this facility use at least one of these dose optimization te chniques: automated exposure control; mA and/or kV adjustment per patient size (includes targeted exa ms where dose is matched to clinical indication); or iterative reconstruction.
--- NOTE | 2022-11-25 16:15 | DI.RAD_ITS ---
Exam(s) XR CHEST 2V PA LATERAL EXAM: XR CHEST 2V PA LATERAL CLINICAL HISTORY: altered mental status TECHNIQUE: 2D digital imaging was performed. COMPARISON: CR,XR XR CHEST 2V PA LATERAL from 11/10/2022 FINDINGS: Central venous catheter. Tip at the level of the right atrium. HEART: Enlarged, unchanged. Pacemaker again noted. Aorta: Not dilated. PULMONARY VASCULATURE: Normal. LUNGS: Clear. PLEURAL SPACE: No pleural effusion or pneumothorax. BONE:Unremarkable for age. IMPRESSION: No acute abnormality. DATA REPOSITORY: RADIATION DOSE DELIVERED:
[2022-11-25 16:38] LABS: Abs Immature Grans 0.01 10^3/uL (0.0-0.06); Absolute Basophil Count 0.02 10^3/uL (0.0-0.2); Absolute Lymphocyte Count 0.61 10^3/uL (1.2-3.4); Absolute Monocyte Count 0.38 10^3/uL (0.1-0.8); Absolute Neutrophil Count 4.29 10^3/uL (1.2-6.7); Basophils % 0.4; Eosinophils % 1.8; HCT 32.9 % (36.0-46.0); HGB 10.8 g/dL (11.2-15.7); Immature Grans % 0.2; Lymphocytes % 11.3; MCHC 32.8 % (32.0-36.0); MCV 95 fL (80-95); MPV 8.8 fL (8.0-11.0); Neutrophils % 79.3; Platelet Count 209 10^3/uL (130-400); RBC 3.48 10^6/uL (3.93-5.22); RDW 15.5 % (11.7-14.6); RDW-SD 54.4 fL; WBC 5.41 10^3/uL (4.4-10.8)
--- NOTE | 2022-11-25 16:53 | SUR.PHASEI ---
pt blood glucose was 69 pt given juice po
[2022-11-25 17:14] LABS: Ammonia 26 umol/L (11-32)
[2022-11-25 17:21] LABS: AST 15 U/L (15-37); Albumin 3.3 g/dL (3.4-5.0); Alkaline Phosphatase 233 U/L (46-116); Anion Gap 11.3 mmol/L (3-11); BUN 27 mg/dL (7-18); Bilirubin, Total 0.4 mg/dL (0.2-1.0); CO2 30.7 mmol/L (21.0-32.0); Chloride 94 mmol/L (98-107); Estimated GFR 10.54 (mL/min/1.73m2); Glucose 54 mg/dL (74-106); Magnesium 2.2 mg/dL (1.8-2.4); Potassium 3.3 mmol/L (3.5-5.1); Sodium 136 mmol/L (136-145); TSH (W/Ref FT4) 1.61 uIU/mL (0.36-3.74); Total Protein 6.8 g/dL (6.4-8.2); Troponin I < 50 ng/L (<or=60)
[2022-11-25 17:39] LABS: ALT < 6 U/L (14-59)
[2022-11-25 17:44] LABS: CREATININE 4.5 mg/dL (0.55-1.02); ETHANOL BLOOD < 3.0 mg/dL (<10)
--- NOTE | 2022-11-25 17:52 | DI.VRAD_ITS ---
PROCEDURE INFORMATION: Exam: CT Head Without Contrast Exam date and time: 11/25/2022 5:32 PM Age: 62 years old Clinical indication: Other: New seizure TECHNIQUE: Imaging protocol: Computed tomography of the head without contrast. COMPARISON: CT HEAD WO 06/29/2022 5:33 PM FINDINGS: Brain: Slight prominence of cerebral sulci reflects mild cerebral atrophy. Poorly marginated hypodensities seen throughout the deep and periventricular white matter of both cerebral hemispheres are consistent with microvascular ischemic changes with superimposed focal encephalomalacia again seen involving cortex and deep and subcortical white matter in the right parietal lobe consistent with chronic ischemic insult. Above Brainstem and cerebellum are unremarkable and there is no evidence of acute transcortical infarction or recent intracranial hemorrhage. Cerebral ventricles: Dilatation of the 3rd and lateral ventricles is commensurate with the degree of cerebral atrophy and stable in appearance. Paranasal sinuses: Grossly clear throughout. Mastoid air cells: Grossly clear bilaterally. Probable cerumen seen in the right external auditory canal. Bones/joints: Bony calvarium and skull base are intact and no acute fractures are detected. Soft tissues: Unremarkable. IMPRESSION: Cerebral atrophy and chronic ischemic changes with no evidence of acute transcortical infarction, recent intracranial hemorrhage or hydrocephalus. No acute intracranial process is detected. Dictated and Authenticated by: Frank Bland MD. Ordering:NAIN Fields MD
--- NOTE | 2022-11-25 18:19 | DI.VRAD_ITS ---
PROCEDURE INFORMATION: Exam: XR Chest Exam date and time: 11/25/2022 5:38 PM Age: 62 years old Clinical indication: Other: Altered mental status TECHNIQUE: Imaging protocol: Radiologic exam of the chest. Views: 2 views. COMPARISON: CR XR CHEST 2V PA LATERAL 11/10/2022 11:40 PM FINDINGS: Tubes, catheters and devices: Left IJ double-lumen central venous catheter is seen in place with its tip at the level of the right atrium. Left subclavian transvenous pacing device also seen in position with electrode tips in right cardiac chambers. Lungs: No new mass or consolidation detected. Pleural spaces: No pneumothorax or large pleural effusion is seen. Heart/Mediastinum: Cardiomegaly is similar in appearance and vessel margins are sharply defined. Bones/joints: No acute osseous lesions are detected. IMPRESSION: No acute cardiopulmonary process. Dictated and Authenticated by: Frank Bland MD. Ordering:NAIN Fields MD
--- NOTE | 2022-11-25 19:34 | ED.GENADUL_ITS ---
Discharge Plan Disposition Patient Disposition: Transfer-Acute Inpatient Care Discharge Details Clinical Impression: Seizure Primary Care Provider: Rosaura Fragoso ED Provider: Diamond Matthews Home Meds and New Rx's Prescriptions: No Action mirtazapine 15 mg tablet 15 mg PO QHS sevelamer carbonate [Renvela] 800 mg tablet 800 mg PO TID Rx Instructions: must administer with a meal/food acetylcysteine [NAC] 600 mg capsule 600 mg PO BID acetaminophen [Acetaminophen Extra Strength] 500 mg tablet 1,000 mg PO BID PRN (Reason: fever or pain) insulin glargine [Basaglar KwikPen U-100 Insulin] 100 unit/mL (3 mL) insulin pen 25 unit subcut QAM Qty: 21 3RF (DME) Blood Glucose Test strip See Dose Instructions .ROUTE .MEDSUPPLY Qty: 300 3RF Dose Instruction: As directed Rx Instructions: Test TID (DME) Adult Briefs - Large misc See Dose Instructions .ROUTE .MEDSUPPLY Qty: 150 12RF Dose Instruction: As directed Rx Instructions: Change as directed (DME) shower chair with arms, with slide to tub Large See Rx Instructions .Route .MEDSUPPLY Qty: 1 0RF Rx Instructions: As directed (DME) raised toilet seat oblong toilet See Rx Instructions .Route .MEDSUPPLY Qty: 1 0RF Rx Instructions: As directed omeprazole 40 mg capsule,delayed release(DR/EC) 40 mg PO DAILY Qty: 90 3RF tramadol 50 mg tablet 50 mg PO BID PRN (Reason: pain) Qty: 6 0RF lamotrigine 100 mg tablet 100 mg PO BID Patient Comments: Increased to bid at [place] d/c lorazepam 1 mg tablet 1 mg PO HS Patient Comments: may also take 0.5mg once daily if needed. (reported progress note NES 05/02/18) benztropine 0.5 mg tablet 0.5 mg PO HS Rx Instructions: Note dated 02/13/19 [facility]gc multivitamin [Daily Multi-Vitamin] Tablet 1 tab PO DAILY Qty: 90 3RF cyanocobalamin (vitamin B-12) [Vitamin B-12] 500 mcg tablet 500 mcg PO DAILY nystatin 100,000 unit/gram powder 1 applic topical BID Qty: 60 1RF Rx Instructions: apply liberal amount to affected areas of rash to breasts until resolved Vraylar 1.5 mg capsule 1.5 mg PO DAILY Rx Instructions: as of 10/27/20 w/ permission from Dr. Pedersen via [facility] atorvastatin 40 mg tablet 40 mg PO DAILY Qty: 90 3RF Eliquis 5 mg tablet See Rx Instructions .ROUTE .COMPLEX Qty: 90 1RF Dose Instruction: TAKE 1/2 TABLET BY MOUTH TWO TIMES A DAY Rx Instructions: TAKE 1/2 TABLET BY MOUTH TWO TIMES A DAY insulin aspart U-100 [Novolog FlexPen U-100 Insulin] 100 unit/mL (3 mL) insulin pen See Rx Instructions subcut AC Qty: 15 3RF Rx Instructions: 2-10u based on sliding scale before meals. aspirin 81 mg tablet,delayed release (/EC) See Rx Instructions .ROUTE .COMPLEX Qty: 90 3RF Dose Instruction: TAKE ONE TABLET BY MOUTH DAILY Rx Instructions: TAKE ONE TABLET BY MOUTH DAILY (DME) pen needle, diabetic 31 gauge x 1/3 needle 1 ea Miscellaneous QID Qty: 100 3RF Rx Instructions: BD Ultrafine Vane 4mm/32G For DM E11.65 A1C<7 manage freq. hyperglycemic episodes (DME) Commode See Rx Instructions .Route .MEDSUPPLY Qty: 1 0RF Rx Instructions: Raised toilet seat not safe for the patient. amlodipine 10 mg tablet 10 mg PO DAILY Qty: 90 0RF carvedilol 12.5 mg tablet See Rx Instructions .ROUTE .COMPLEX Qty: 180 3RF Dose Instruction: TAKE ONE TABLET BY MOUTH TWO TIMES A DAY WITH MEAL OR FOOD INCREASED BY [facility] 05/26/21 Rx Instructions: TAKE ONE TABLET BY MOUTH TWO TIMES A DAY WITH MEAL OR FOOD INCREASED BY [facility] 05/26/21 meclizine 12.5 mg tablet 12.5 mg PO TID PRN (Reason: dizziness) Qty: 60 0RF cefazolin 1 gram recon soln 1 g IV .T,,Sat polyethylene glycol 3350 17 gram/dose powder 17 g PO DAILY PRN (Reason: constipation) sennosides-docusate sodium [Senna with Docusate Sodium] 8.6-50 mg tablet 2 tab-cap PO BID PRN (Reason: constipation) fosinopril 40 mg tablet 40 mg PO DAILY ondansetron 4 mg tablet,disintegrating 4 mg PO Q8H PRN (Reason: nausea and vomiting) Qty: 30 0RF Discharge Instructions Instructions: Recurrent Seizures in Adults (ED) Additional Instructions: Call your primary care doctor on Sunday to schedule an appointment to followup on your visit here. Continue to take all of your usual medications. Return to the emergency department for new or worsening symptoms, including if you have another seizure. Referrals: Rosaura Fragoso NP [Primary Care Provider] - Medical Decision Making 62yo F with ESRD on dialysis M/W/F, T2DM, distant seizure history on home lamictal, presenting after caregiver witnessed seizure like activity home. History from EMS, caregiver over the phone, and patient. Witnessed seizure, post-ictal on EMS arrival and post-ictal in the ED. In her usual state of health this morning with no infectious symptoms, no recent injury, no clear provoking factor. Vital signs and physical exam reassuring, no focal neurologic deficits. Fingerstick borderline low in 60's, unlikely to have caused seizure, given juice. Head CT ordered and reviewed, no acute findings on my view, agree with radiology read below. CXR without pneumonia, agree with radiology read below. EKG NSR, appropriate intervals, no sequelae of ischemia. Patient anuric, no UA obtained. Labs reviewed as below, CBC & CMP wtih no actionable abnormalities (again mild hypoglycemia), consistent with known ESRD. Patient returned to baseline in the ED. Repeat fingerstick normal. Lamictal level pending (sendout) Was preparing for discharge home when had another witnessed seizure in the ED, 1-2 minutes of tonic clonic activity terminated with 2mg IV ativan, subsequently post ictal. Given 1g of IV keppra as well. Not status epilepticus however given recurrent seizures, warrants admission, unfortunately unable to perform dialysis here should admission be prolonged. Discussed with neurology at [facility] who advised increasing lamictal dose; no capacity for transfer. Discussed with [facility] who also have no capacity. Sign out to oncoming physician, patient pending transfer placement. Imaging Data Radiologic Study: Imaging: CT Scan Radiologist's impression: IMPRESSION: Cerebral atrophy and chronic ischemic changes with no evidence of acute transcortical infarction, recent intracranial hemorrhage or hydrocephalus. No acute intracranial process is detected. Radiologic Study #2: Imaging: X-Ray Radiologist's impression: IMPRESSION: No acute cardiopulmonary process. Lab Data Lab results reviewed: Yes I reviewed the patient's lab results. Labs: Laboratory Tests Range/Units 11/25/22 11/25/22 11/25/22 16:20 16:20 16:39 WBC (4.4-10.8) 10^3/uL 5.41 RBC (3.93-5.22) 10^6/uL 3.48 L Hgb (11.2-15.7) g/dL 10.8 L Hct (36.0-46.0) % 32.9 L MCV (80-95) fL 95 MCH (27.0-33.0) pg 31.0 MCHC (32.0-36.0) % 32.8 RDW (11.7-14.6) % 15.5 H Plt Count (130-400) 10^3/uL 209 MPV (8.0-11.0) fL 8.8 Immature Gran % 0.2 Neutrophils % 79.3 Lymphocytes % 11.3 Monocytes % 7.0 Eosinophils % 1.8 Basophils % 0.4 Nucleated RBC % (0.0-0.3) % 0.0 Absolute Neutrophils (1.2-6.7) 10^3/uL 4.29 Absolute Lymphocytes (1.2-3.4) 10^3/uL 0.61 L Absolute Monocytes (0.1-0.8) 10^3/uL 0.38 Absolute Eosinophils (0.0-0.7) 10^3/uL 0.10 Absolute Basophils (0.0-0.2) 10^3/uL 0.02 Sodium (136-145) mmol/L 136 Potassium (3.5-5.1) mmol/L 3.3 L Chloride (98-107) mmol/L 94 L Carbon Dioxide (21.0-32.0) mmol/L 30.7 Anion Gap (3-11) mmol/L 11.3 H BUN (7-18) mg/dL 27 H Creatinine (0.55-1.02) mg/dL 4.5 H* Est GFR (CKD-EPI 2020) (mL/min/1.73m2) 10.54 Glucose (74-106) mg/dL 54 L Calcium (8.5-10.1) mg/dL 9.0 Magnesium (1.8-2.4) mg/dL 2.2 Total Bilirubin (0.2-1.0) mg/dL 0.4 AST (15-37) U/L 15 ALT (14-59) U/L < 6 L Alkaline Phosphatase (46-116) U/L 233 H Ammonia (11-32) umol/L 26 Troponin I (<or=60) ng/L < 50 Total Protein (6.4-8.2) g/dL 6.8 Albumin (3.4-5.0) g/dL 3.3 L TSH (0.36-3.74) uIU/mL 1.61 Ethyl Alcohol (<10) mg/dL < 3.0 Range/Units 11/25/22 19:30 WBC (4.4-10.8) 10^3/uL RBC (3.93-5.22) 10^6/uL Hgb (11.2-15.7) g/dL Hct (36.0-46.0) % MCV (80-95) fL MCH (27.0-33.0) pg MCHC (32.0-36.0) % RDW (11.7-14.6) % Plt Count (130-400) 10^3/uL MPV (8.0-11.0) fL Immature Gran % Neutrophils % Lymphocytes % Monocytes % Eosinophils % Basophils % Nucleated RBC % (0.0-0.3) % Absolute Neutrophils (1.2-6.7) 10^3/uL Absolute Lymphocytes (1.2-3.4) 10^3/uL Absolute Monocytes (0.1-0.8) 10^3/uL Absolute Eosinophils (0.0-0.7) 10^3/uL Absolute Basophils (0.0-0.2) 10^3/uL Sodium (136-145) mmol/L Potassium (3.5-5.1) mmol/L Chloride (98-107) mmol/L Carbon Dioxide (21.0-32.0) mmol/L Anion Gap (3-11) mmol/L BUN (7-18) mg/dL Creatinine (0.55-1.02) mg/dL Est GFR (CKD-EPI 2020) (mL/min/1.73m2) Glucose (74-106) mg/dL Calcium (8.5-10.1) mg/dL Magnesium (1.8-2.4) mg/dL Total Bilirubin (0.2-1.0) mg/dL AST (15-37) U/L ALT (14-59) U/L Alkaline Phosphatase (46-116) U/L Ammonia (11-32) umol/L Troponin I (<or=60) ng/L < 50 Total Protein (6.4-8.2) g/dL Albumin (3.4-5.0) g/dL TSH (0.36-3.74) uIU/mL Ethyl Alcohol (<10) mg/dL HPI General Mode of arrival: EMS . Date/Time Provider Initiated Documentation: 11/25/22 16:20 . Limitations to Documentation: altered mental status . Information obtained by: patient and family . HPI Narrative: 62yo F with ESRD on dialysis M/W/F, T2DM, distant seizure history on home lamictal, presenting after caregiver witnessed seizure like activity home. History from EMS, caregiver over the phone, and patient. Per EMS patient seen to have tonic-clonic activity by family, on their arrival patient was confused. Patient does not remember these events. Denies any recent head injury, chest pain, shortness of breath, numbness, tingling, focal weakness, headache, dysuria, hematuria, cough, rhinnorhea, nausea, vomiting, abdominal pain, or other concerns. Related Data Home Medications Medication Instructions Recorded Confirmed blood sugar diagnostic (Blood #300 ea 05/06/18 11/12/22 Glucose Test strips) lamotrigine 100 mg tablet 100 mg PO BID 05/09/18 11/12/22 lorazepam 1 mg tablet 1 mg PO HS 05/09/18 11/12/22 diaper,brief,adult,disposable #150 ea 07/25/18 11/12/22 (Adult Briefs - Large) benztropine 0.5 mg tablet 0.5 mg PO HS 03/06/19 11/12/22 multivitamin (Daily Multi-Vitamin 1 tab PO DAILY #90 tabs 05/15/19 11/12/22 tablet) cyanocobalamin (vitamin B-12) 500 500 mcg PO DAILY 08/05/19 11/12/22 mcg tablet (Vitamin B-12) nystatin 100,000 unit/gram topical 1 applic topical BID #60 grams 02/04/20 11/12/22 powder acetylcysteine 600 mg capsule (NAC) 600 mg PO BID 02/11/20 11/12/22 mirtazapine 15 mg tablet 15 mg PO QHS 02/11/20 11/12/22 sevelamer carbonate 800 mg tablet 800 mg PO TID 02/11/20 11/12/22 (Renvela) acetaminophen 500 mg tablet 1,000 mg PO BID PRN fever or pain 07/06/20 11/12/22 (Acetaminophen Extra Strength) cariprazine 1.5 mg capsule 1.5 mg PO DAILY 10/27/20 11/12/22 (Vraylar) atorvastatin 40 mg tablet 40 mg PO DAILY #90 tabs 03/13/22 11/12/22 insulin glargine 100 unit/mL (3 25 unit (0.25 mL) subcut QAM #21 mL 05/18/22 11/12/22 mL) subcutaneous pen (Basaglar KwikPen U-100 Insulin) apixaban 5 mg tablet (Eliquis) See Rx Instructions .Route 05/29/22 11/12/22 .COMPLEX #90 tabs insulin aspart U-100 100 unit/mL See Rx Instructions subcut AC #15 07/03/22 11/12/22 (3 mL) subcutaneous pen (Novolog mL FlexPen U-100 Insulin aspart) omeprazole 40 mg capsule,delayed 40 mg PO DAILY #90 caps 07/13/22 11/12/22 release raised toilet seat #1 ea 07/13/22 11/07/22 shower chair with arms, with slide #1 ea 07/13/22 11/07/22 to tub aspirin 81 mg tablet,delayed See Rx Instructions .Route 07/20/22 11/12/22 release .COMPLEX #90 tabs pen needle, diabetic 31 gauge x #100 ea 07/31/22 11/12/2204/25 Commode #1 ea 08/21/22 11/07/22 amlodipine 10 mg tablet 10 mg PO DAILY #90 tabs 08/21/22 11/12/22 carvedilol 12.5 mg tablet See Rx Instructions .Route 08/28/22 11/12/22 .COMPLEX #180 tabs cefazolin 1 gram intravenous 1 g IV .T,TH,Sat with HD 11/06/22 11/12/22 solution meclizine 12.5 mg tablet 12.5 mg PO TID PRN dizziness #60 11/06/22 11/12/22 tabs polyethylene glycol 3350 17 17 g PO DAILY PRN constipation 11/06/22 11/12/22 gram/dose oral powder sennosides 8.6 mg-docusate sodium 2 tab-cap PO BID PRN constipation 11/06/22 11/12/22 50 mg tablet (Senna with Docusate Sodium) fosinopril 40 mg tablet 40 mg PO DAILY 11/07/22 11/12/22 ondansetron 4 mg disintegrating 4 mg PO Q8H PRN nausea and 11/12/22 tablet vomiting #30 tabs tramadol 50 mg tablet 50 mg PO BID PRN pain #6 tabs 11/14/22 11/14/22 Previous Rx's Medication Instructions Recorded blood sugar diagnostic (Blood #300 ea 05/06/18 Glucose Test strips) diaper,brief,adult,disposable #150 ea 07/25/18 (Adult Briefs - Large) multivitamin (Daily Multi-Vitamin 1 tab PO DAILY #90 tabs 05/15/19 tablet) nystatin 100,000 unit/gram topical 1 applic topical BID #60 grams 02/04/20 powder atorvastatin 40 mg tablet 40 mg PO DAILY #90 tabs 03/13/22 insulin glargine 100 unit/mL (3 25 unit (0.25 mL) subcut QAM #21 mL 05/18/22 mL) subcutaneous pen (Basaglar KwikPen U-100 Insulin) apixaban 5 mg tablet (Eliquis) See Rx Instructions .Route 05/29/22 .COMPLEX #90 tabs insulin aspart U-100 100 unit/mL See Rx Instructions subcut AC #15 07/03/22 (3 mL) subcutaneous pen (Novolog mL FlexPen U-100 Insulin aspart) omeprazole 40 mg capsule,delayed 40 mg PO DAILY #90 caps 07/13/22 release raised toilet seat #1 ea 07/13/22 shower chair with arms, with slide #1 ea 07/13/22 to tub aspirin 81 mg tablet,delayed See Rx Instructions .Route 07/20/22 release .COMPLEX #90 tabs pen needle, diabetic 31 gauge x #100 ea 07/31/2204/25 Commode #1 ea 08/21/22 amlodipine 10 mg tablet 10 mg PO DAILY #90 tabs 08/21/22 carvedilol 12.5 mg tablet See Rx Instructions .Route 08/28/22 .COMPLEX #180 tabs meclizine 12.5 mg tablet 12.5 mg PO TID PRN dizziness #60 11/06/22 tabs ondansetron 4 mg disintegrating 4 mg PO Q8H PRN nausea and 11/12/22 tablet vomiting #30 tabs tramadol 50 mg tablet 50 mg PO BID PRN pain #6 tabs 11/14/22 Allergies Allergy/AdvReac Type Severity Reaction Status Date / Time aripiprazole [From Abilify] Allergy Severe Verified 11/14/22 14:59 duloxetine HCl Allergy Severe Hives Verified 11/14/22 14:59 [From Cymbalta] oxycodone Allergy Severe Hives Verified 11/14/22 14:59 Sulfa (Sulfonamide Allergy Severe Skin Rash Verified 11/14/22 14:59 Antibiotics) amitriptyline Allergy Intermediate Verified 11/14/22 14:59 citalopram Allergy Intermediate HIVES Verified 11/14/22 14:59 fesoterodine Allergy Intermediate HIVES Verified 11/14/22 14:59 latex Allergy Intermediate Hives Verified 11/14/22 14:59 rabies vaccine, human Allergy Intermediate Verified 11/14/22 14:59 diploid cell [Rabies Vaccine,Human Diploid] Tetanus Vaccines and Toxoid Allergy Intermediate Swelling/Ed Verified 11/14/22 14:59 [Tetanus Vaccines & Toxoid] ghulam acetaminophen [From Vicodin] Allergy Unknown Verified 11/14/22 14:59 bupropion HCl Allergy Unknown Verified 11/14/22 14:59 [From Wellbutrin] celecoxib [From Celebrex] Allergy Unknown Verified 11/14/22 14:59 diazepam [From Valium] Allergy Unknown Verified 11/14/22 14:59 divalproex sodium Allergy Unknown Verified 11/14/22 14:59 [From Depakote] escitalopram oxalate Allergy Unknown Verified 11/14/22 14:59 [From Lexapro] fluoxetine HCl [From Prozac] Allergy Unknown Verified 11/14/22 14:59 fosphenytoin sodium Allergy Unknown Verified 11/14/22 14:59 [From Cerebyx] hydrocodone bitartrate Allergy Unknown Verified 11/14/22 14:59 [From Vicodin] morphine Allergy Unknown Verified 11/14/22 14:59 nicotine [From Nicoderm CQ] Allergy Unknown rash/hives Verified 11/14/22 14:59 paroxetine HCl [From Paxil] Allergy Unknown Verified 11/14/22 14:59 phenytoin sodium Allergy Unknown Verified 11/14/22 14:59 [From Dilantin] phenytoin sodium extended Allergy Unknown Verified 11/14/22 14:59 [From Dilantin] prednisone Allergy Unknown Verified 11/14/22 14:59 procaine HCl [From Novocain] Allergy Unknown Verified 11/14/22 14:59 quetiapine Allergy Unknown Verified 11/14/22 14:59 quetiapine fumarate Allergy Unknown Verified 11/14/22 14:59 [From Seroquel] risperidone [From Risperdal] Allergy Unknown Verified 11/14/22 14:59 sertraline Allergy Unknown Hives Verified 11/14/22 14:59 trazodone Allergy Unknown Verified 11/14/22 14:59 venlafaxine HCl Allergy Unknown Verified 11/14/22 14:59 [From Effexor] warfarin [From Coumadin] Allergy none Verified 11/14/22 14:59 listed on referral thiothixene [Thiothixene] AdvReac Severe Nausea Verified 11/14/22 14:59 topiramate AdvReac Intermediate Nausea Verified 11/14/22 14:59 gabapentin AdvReac Unknown Severe Verified 11/14/22 14:59 dizziness, runs; vomiting lidocaine AdvReac Unknown Nausea Verified 11/14/22 14:59 ibuprofen AdvReac headache Verified 11/14/22 14:59 and nausea melatonin AdvReac nightmares Verified 11/14/22 14:59 varenicline tartrate AdvReac Psychosis Verified 11/14/22 14:59 [From Chantix] ABSOLUTE CONTRAINDICATION AdvReac Severe Headache Uncoded 11/14/22 14:59 FOR MRI (disconnected RV pacer lead) general anesthia AdvReac Unknown Uncoded 11/14/22 14:59 General Stated Complaint: AMS/LOC ASIM: 3 Review of Systems Narrative: see HPI PFSH All Active Problems (Updated 11/25/22 @ 20:28 by Diamond Matthews MD) Seizure (Acute) Bacteremia (Acute ~10/2022) Intra vascular infection, AV graft infection - treating wit IV abx when at dialysis Complication associated with dialysis catheter (Acute) Nausea & vomiting (Acute) Anemia (Chronic) Atherosclerosis of artery of both lower extremities (Acute) 06/08/22 Rd Uriarte DPM - podiatry visit Reticulocytopenia (Acute) Elevated ferritin (Acute) Dialysis patient (Acute) Fracture of ramus of left pubis (Acute) Hyperlipidemia (Acute) 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 11/15/21 Decision from Transplant Eval that pt is not a candidate for kidney transplant Dysuria (Acute) Memory deficit (Acute) Solitary left kidney (Acute) Decreased GFR (Acute) Viral syndrome (Acute) Bilateral leg edema (Acute) Colonoscopy refused (Acute) Urinary incontinence (Acute 02/11/15) Urge incontinence (Chronic) Elevated cholesterol (Chronic) Fracture of radial neck, left, closed (Acute) H/O endarterectomy (Chronic) Non-adherence to medical treatment (Acute) Type 2 diabetes mellitus (Chronic) Sinus bradycardia (Chronic) S/p pacemaker. Generator change 12/2013 [facility] [place] (Yariel MCLAUGHLIN). Pocket revision & new RV lead 10/2014 [facility] [place]. Postmenopausal (Chronic) LMP ~2004 Paranoia (Chronic 12/19/16) Meralgia paresthetica, right lower limb (Chronic 11/05/15) Dr. 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 Congenital single kidney (Chronic 03/08/15) by xray from [facility] 03/17/09 in scanned records Adult BMI > 30 (Chronic 06/07/15) Medical History (Updated 11/25/22 @ 20:28 by Diamond Matthews MD) Bipolar 1 disorder Depression End stage renal disease [place] [facility] [place] Hypertension (~06/20/19) Goal <130/80 [facility] Onychomycosis 06/08/22 Rd Uriarte DPM Pacemaker (10/22/14) for bradycardia and sinus node dysfunction DDD pacer 2004 in [place] Medtronic dual lead programmed VVI - PG replaced 01/01/2014 [facility] [place] Old RV lead abandoned PAD (peripheral artery disease) (08/13/17) PTSD (post-traumatic stress disorder) (05/28/17) Seizure Sinus node dysfunction (10/22/14) Stroke R parietal; asymptomatic; Toe pain, bilateral 06/08/22 Rd Uriarte DPM Type 2 diabetes mellitus with diabetic polyneuropathy Surgical History aortobifemoral bypass (09/07/17) [facility] vascular. August 2017 section (~1985) Pacemaker (~2004) [place] S/P angioplasty (01/30/18) left femoral endarterectomy and patch angioplasty, Aortogram, Over the wire Left ABF graft thrombectomy, Open ledt ABF thrombectomy, left ABF graft stent (VBX 8x39) S/P aortobifemoral bypass surgery Family History Mother No problems noted. Father No problems noted. Sister No problems noted. Social History Smoking/Tobacco Use Status: Former Tobacco Use Quit Date: 03/03/21 Pack-years: 36 Smoking risk assessment performed?: Yes Alcohol Intake: never Drug use: Never Substance use type: does not use Adopted: No Number of Children: 1 Do you need help understanding health information?: Always current occupation: disabliilty What type of physical activity do you participate in: walking Duration: 15-30 minutes/day Frequency: 3-4 times per week Do you feel safe at home: Yes Do you feel safe in your relationship?: Yes Exam Narrative Exam Narrative: General: Alert, well appearing, well nourished, in no acute distress. Head: Normocephalic, atraumatic Neck: Trachea midline, Neck supple. ENT: MMM. Cardiac: RRR, no murmurs appreciated Resp: No respiratory distress. CTAB. Abd: Soft, non-distended, nontender : No suprapubic tenderness. Extremities: No deformities. Neuro: GCS 14. PERRL. EOMI. Fluent speech, no dysarthria. Motor- 5/5 strength symmetric bilateral upper and lower extremities Sensation- Intact to light touch and symmetric multiple dermatomes including upper and lower extrmeities Coordination- No dysmetria on finger to nose CRANIAL NERVES: II: Pupils equal and reactive, III, IV, : EOM intact, no gaze preference or deviation, no nystagmus. V: normal sensation in V1, V2, and V3 segments bilaterally VII: no asymmetry, no nasolabial fold flattening VIII: normal hearing to speech XII: midline tongue protrusion Course Vital Signs Vital signs: Vital Signs Temperature 37 C 11/25/22 16:00 Pulse 65 11/25/22 16:00 Respiratory Rate 20 11/25/22 16:00 Blood Pressure 162/84 H 11/25/22 16:00 Pulse Oximetry 97 11/25/22 16:00 Temperature 37 C 11/25/22 16:00 Temperature Source Tympanic 11/25/22 16:00 Pulse 65 11/25/22 16:00 Respiratory Rate 20 11/25/22 16:00 Respiratory Effort Normal 11/25/22 16:09 Respiratory Depth Normal 11/25/22 16:09 Respiratory Pattern Normal 11/25/22 16:09 Blood Pressure 162/84 H 11/25/22 16:00 Blood Pressure Position Supine 11/25/22 16:00 Pulse Oximetry 97 11/25/22 16:00 Oxygen Delivery Method Room Air 11/25/22 16:00 Oxygen Flow Rate 0 11/25/22 16:00 Pain Level 0 11/25/22 16:00 Lab/Test Results Lab/Test Results: Laboratory Tests Range/Units 11/25/22 11/25/22 11/25/22 16:20 16:20 16:39 WBC (4.4-10.8) 10^3/uL 5.41 RBC (3.93-5.22) 10^6/uL 3.48 L Hgb (11.2-15.7) g/dL 10.8 L Hct (36.0-46.0) % 32.9 L MCV (80-95) fL 95 MCH (27.0-33.0) pg 31.0 MCHC (32.0-36.0) % 32.8 RDW (11.7-14.6) % 15.5 H Plt Count (130-400) 10^3/uL 209 MPV (8.0-11.0) fL 8.8 Immature Gran % 0.2 Neutrophils % 79.3 Lymphocytes % 11.3 Monocytes % 7.0 Eosinophils % 1.8 Basophils % 0.4 Nucleated RBC % (0.0-0.3) % 0.0 Absolute Neutrophils (1.2-6.7) 10^3/uL 4.29 Absolute Lymphocytes (1.2-3.4) 10^3/uL 0.61 L Absolute Monocytes (0.1-0.8) 10^3/uL 0.38 Absolute Eosinophils (0.0-0.7) 10^3/uL 0.10 Absolute Basophils (0.0-0.2) 10^3/uL 0.02 Sodium (136-145) mmol/L 136 Potassium (3.5-5.1) mmol/L 3.3 L Chloride (98-107) mmol/L 94 L Carbon Dioxide (21.0-32.0) mmol/L 30.7 Anion Gap (3-11) mmol/L 11.3 H BUN (7-18) mg/dL 27 H Creatinine (0.55-1.02) mg/dL 4.5 H* Est GFR (CKD-EPI 2020) (mL/min/1.73m2) 10.54 Glucose (74-106) mg/dL 54 L Calcium (8.5-10.1) mg/dL 9.0 Magnesium (1.8-2.4) mg/dL 2.2 Total Bilirubin (0.2-1.0) mg/dL 0.4 AST (15-37) U/L 15 ALT (14-59) U/L < 6 L Alkaline Phosphatase (46-116) U/L 233 H Ammonia (11-32) umol/L 26 Troponin I (<or=60) ng/L < 50 Total Protein (6.4-8.2) g/dL 6.8 Albumin (3.4-5.0) g/dL 3.3 L TSH (0.36-3.74) uIU/mL 1.61 Ethyl Alcohol (<10) mg/dL < 3.0 Critical Care Time Critical Care Time Critical Care Time: Yes Total Critical Care Time: 34 Attestation: Due to a high probability of clinically significant, life threatening deterioration, the patient required my highest level of preparedness to intervene emergently and I personally spent this critical care time directly and personally managing the patient. This critical care time included obtaining a history; examining the patient; pulse oximetry; ordering and review of studies; arranging urgent treatment with development of a management plan; evaluation of patient's response to treatment; frequent reassessment; and, discussions with other providers. This critical care time was performed to assess and manage the high probability of imminent, life-threatening deterioration that could result in multi-organ failure. It was exclusive of separately billable procedures.
[2022-11-25 20:06] LABS: Troponin I < 50 ng/L (<or=60)
--- NOTE | 2022-11-25 20:50 | SUR.PHASEI ---
at the time of discharge pt began to have seizure activity just before pulling iv and placing patient in wheelchair pt placed back in bed o2 via mask applied
--- NOTE | 2022-11-25 21:02 | NUR.NOTE ---
Lorazepam pulled for this pt. Pulled from pixis from other nurse. Doctor at bedside told to administer 2mg. reminded to put in order for this pt.
[2022-11-25] MEDS: LORazepam 2 MG/ML VIAL IVP (21:09)
[2022-11-25] MEDS: levETIRAcetam 1,000 MG in Normal Saline 100 ML 400 MG IVPB (21:24)
--- NOTE | 2022-11-25 21:45 | ED.PROG_ITS ---
Date of service: 11/25/22 Time of Service: 21:46 Medical Decision Making I received signout on this 62-year-old dialysis dependent female. She reportedly has had questionable adherence with her medications at home for which she takes for seizures. She had a prehospital seizure and was being discharged from the ED when she had a recurrent seizure. She received 2 mg of lorazepam and 1 g of levetiracetam. Neurology at [facility] recommended increasing her lamotrigine dose. They said no indication for an EEG. They unfortunately declined secondary to capacity. Patient has had no fevers to suggest need for lumbar puncture. No focal neurological deficits to suggest CVA I sent medication for MRI. She is also been declined by [facility]. Health Center coordinator Heather is attempting to transfer the patient to the [facility]. I will start reordering the patient's home medications. 10:15 pm I spoke with Dr. Cota from [facility] who graciously agreed to except the patient hospitalization. I have asked health unit Heather to help to arrange durability engineer crew. 12:20 AM Patient was reportedly becoming more agitated. I will order her her 1 mg oral dose of lorazepam and her 15 mg oral dose of mirtazapine. 1:04 AM Unfortunately all of the local ambulance services are unable to take the patie nt. I have asked health decision unit rn Heather to schedule a transfer with a durability engineer at 7:30 AM this morning. I would like to keep the patient in the emergency department rather than send the patient with a basic crew in the event that the patient has a recurrent seizure. 4:05 AM Patient was increasingly agitated in the ED. I was attempting to order her her home cariprazine however this was unfortunate not on formulary. I ordered her a low-dose of oral haloperidol which she had been on in the past. 5:42 AM Patient was persistently disoriented on the overnight shift. It is unclear wh ether or not this is delirium. No recurrent tonic-clonic activity. Patient is not pacemaker which is Medtronic so we will interrogate this to ensure that she has not had any dysrhythmias which could have precipitated her tonic clonic episodes. 6:03 AM Patient's Medtronic pacemaker had no acute events per Crusher Assembler Ameena. We will continue to monitor patient in the ED. 6:24 AM Patient was transferred via a nurse to [facility]. I signed transfer paperwork with as needed lorazepam for seizure. Sign Out Sign Out Data: Sign Out Comment: 62yo F ESRD dialysis M/W/F distant history of seizures on lamictal presenting after witnessed seizure at home, post ictal on arrival. Head CT/CXR/labs with no provoking factor. Returned to baseline. Prepping for discharged when seized again in the ED, 1-2 minutes of tonic clonic activity terminated with 2mg IV ativan, subsequently post ictal[place] [facility] [place] and [facility] both with no capacity. Pending transfer. Last updated by Diamond Matthews MD at 11/25/22 21:36 Discharge Plan Disposition Patient Disposition: Transfer-Acute Inpatient Care Specific Acute Inpt Facility: [facility] Discharge Details Clinical Impression: Seizure Primary Care Provider: Rosaura Fragoso ED Provider: Elgin Pat Armington Meds and New Rx's Prescriptions: No Action mirtazapine 15 mg tablet 15 mg PO QHS sevelamer carbonate [Renvela] 800 mg tablet 800 mg PO TID Rx Instructions: must administer with a meal/food acetylcysteine [NAC] 600 mg capsule 600 mg PO BID acetaminophen [Acetaminophen Extra Strength] 500 mg tablet 1,000 mg PO BID PRN (Reason: fever or pain) insulin glargine [Basaglar KwikPen U-100 Insulin] 100 unit/mL (3 mL) insulin pen 25 unit subcut QAM Qty: 21 3RF (DME) Blood Glucose Test strip See Dose Instructions .ROUTE .MEDSUPPLY Qty: 300 3RF Dose Instruction: As directed Rx Instructions: Test TID (DME) Adult Briefs - Large misc See Dose Instructions .ROUTE .MEDSUPPLY Qty: 150 12RF Dose Instruction: As directed Rx Instructions: Change as directed (DME) shower chair with arms, with slide to tub Large See Rx Instructions .Route .MEDSUPPLY Qty: 1 0RF Rx Instructions: As directed (DME) raised toilet seat oblong toilet See Rx Instructions .Route .MEDSUPPLY Qty: 1 0RF Rx Instructions: As directed omeprazole 40 mg capsule,delayed release(DR/EC) 40 mg PO DAILY Qty: 90 3RF tramadol 50 mg tablet 50 mg PO BID PRN (Reason: pain) Qty: 6 0RF lamotrigine 100 mg tablet 100 mg PO BID Patient Comments: Increased to bid at [place] d/c lorazepam 1 mg tablet 1 mg PO HS Patient Comments: may also take 0.5mg once daily if needed. (reported progress note [facility]EB 05/02/18) benztropine 0.5 mg tablet 0.5 mg PO HS Rx Instructions: Note dated 02/13/19 [facility] multivitamin [Daily Multi-Vitamin] Tablet 1 tab PO DAILY Qty: 90 3RF cyanocobalamin (vitamin B-12) [Vitamin B-12] 500 mcg tablet 500 mcg PO DAILY nystatin 100,000 unit/gram powder 1 applic topical BID Qty: 60 1RF Rx Instructions: apply liberal amount to affected areas of rash to breasts until resolved Vraylar 1.5 mg capsule 1.5 mg PO DAILY Rx Instructions: as of 10/27/20 w/ permission from Dr. Pedersen via [facility] [place]or[place] 40 mg tablet 40 mg PO DAILY Qty: 90 3RF Eliquis 5 mg tablet See Rx Instructions .ROUTE .COMPLEX Qty: 90 1RF Dose Instruction: TAKE 1/2 TABLET BY MOUTH TWO TIMES A DAY Rx Instructions: TAKE 1/2 TABLET BY MOUTH TWO TIMES A DAY insulin aspart U-100 [Novolog FlexPen U-100 Insulin] 100 unit/mL (3 mL) insulin pen See Rx Instructions subcut AC Qty: 15 3RF Rx Instructions: 2-10u based on sliding scale before meals. aspirin 81 mg tablet,delayed release (DR/EC) See Rx Instructions .ROUTE .COMPLEX Qty: 90 3RF Dose Instruction: TAKE ONE TABLET BY MOUTH DAILY Rx Instructions: TAKE ONE TABLET BY MOUTH DAILY (DME) pen needle, diabetic 31 gauge x 1/3 needle 1 ea Miscellaneous QID Qty: 100 3RF Rx Instructions: BD Ultrafine Vane 4mm/32G For DM E11.65 A1C<7 manage freq. hyperglycemic episodes (DME) Commode See Rx Instructions .Route .MEDSUPPLY Qty: 1 0RF Rx Instructions: Raised toilet seat not safe for the patient. amlodipine 10 mg tablet 10 mg PO DAILY Qty: 90 0RF carvedilol 12.5 mg tablet See Rx Instructions .ROUTE .COMPLEX Qty: 180 3RF Dose Instruction: TAKE ONE TABLET BY MOUTH TWO TIMES A DAY WITH MEAL OR FOOD [place]CREAS[place] [facility] [place]/26[place]21 Rx Instructions: TAKE ONE TABLET BY MOUTH TWO TIMES A DAY WITH MEAL OR FOOD INCREASED [place] [facility] [place] meclizine 12.5 mg tablet 12.5 mg PO TID PRN (Reason: dizziness) Qty: 60 0RF cefazolin 1 gram recon soln 1 g IV .T,TH,Sat polyethylene glycol 3350 17 gram/dose powder 17 g PO DAILY PRN (Reason: constipation) sennosides-docusate sodium [Senna with Docusate Sodium] 8.6-50 mg tablet 2 tab-cap PO BID PRN (Reason: constipation) fosinopril 40 mg tablet 40 mg PO DAILY ondansetron 4 mg tablet,disintegrating 4 mg PO Q8H PRN (Reason: nausea and vomiting) Qty: 30 0RF Discharge Instructions Instructions: Recurrent Seizures in Adults (ED) Additional Instructions: Call your primary care doctor on Sunday to schedule an appointment to followup on your visit here. Continue to take all of your usual medications. Return to the emergency department for new or worsening symptoms, including if you have another seizure. Referrals: Rosaura Fragoso NP [Primary Care Provider] - Discharge Data Discharge Date/Time-TO BE ENTERED AT DEPARTURE: 11/26/22 08:26
[2022-11-26] VITALS (101 sets, daily range): BP systolic 142–220; BP diastolic 48–150; PULSE 62–84; RESP 11–34; TEMP 37.2; O2SAT 93–99
[2022-11-26] MEDS: Benztropine 1 MG TAB 0.5 MG PO (02:39)
[2022-11-26] MEDS: Haloperidol 1 MG TAB PO (04:16)
--- NOTE | 2022-11-26 04:45 | NUR.NOTE ---
Addendum entered by Candice Levy RN 11/26/22 06:30: 0557: Pt pacemaker interrogated. Appears to be performing appropriately. Current plan is to transfer pt to [facility] @0730 w/ PERLA and FELIX Bean. Pt finally appears to be resting comfortably at this time. MD Pta updated and aware. Original Note: Rec'd report on pt from FELIX Lanierson @7745. Per FELIX Galvez, pt admitted for sz activity at home. Was initially very confused and tearful, w/ poor short term memory, presumed r/t post-ictal changes. @11/25 RN Lenny was preparing to d/c pt back to home, when she experienced another tonic/clonic sz requiring additional ativan doses. STAT head CT revealed no acute issues. L upper lip noted to be bleeding from a superficial wound from where pt may have hurt it during either of her szs. Pt unable to recall source of injury. Frequently at bedside reassessing pt while awaiting transfer to higher level of care to try and determine source of distress and ongoing confusion. Pt continues to be oriented to self, but w/ no recall of current situation or time. Occasionally says she is 'in a hospital' when asked location, but when asked which hospital or which state she consistently says '[facility]' and '[place]'. Attempts to reorient pt unsuccessful. Pt BGFS WDL @117mg/dL on recheck. Tearful, crying out in distress things like, 'I can't do it! I can't do anything!' and picking/pulling at all lines and linens, and getting legs over side rails of stretcher. Re-directable, but only w/ constant supervision. When interacting w/ this RN pt is easily reassured and redirected, but perseverates on back pain, and being unable to sleep, but unable to identify things that would help her w/ sleep or her pain. Medications for anxiety and discomfort administered, see eMAR for details. Other comfort measures to reduce distress and help mentation included pt repositioned q2h and more frequently as desired w/ foam wedges, and emotional support provided. Rubbed pt back, changed linens, cleaned and removed upper dentures, performed bed bath, and provided PO refreshment. MD Pat updated and aware of ongoing altered mentation and agitation. Haldol PO ordered and administered w/o any appreciable effect. SCHUMACHER strongly and w/ purpose. VSS. Will continue to monitor all systems and report pertinent info to HO and other members of care team as desired and appropriate.
--- NOTE | 2022-11-26 13:13 | NUR.NOTE ---
Nursing Note: 0700 Report received from Fadi Levy RN while awaiting for [facility] Crew for transfer. Pt was alert to name and date; reorientable with place. 0830 [facility] initiated with MD orders for 2 mg Ativan IV shoudl pt have a seizure. VS - HR 66, BP 188/80, R 22, O2 sat 95% RA. Monitor shows Sinus Rhythm. Pt tolerated ride with no seizure, did c/o back pain and seemed to be then be alert as to where she was. Oral care and repositioning provided en route per patient request. No meds administered. VS prior to handoff at 1027 - HR 68, BP 196/91, RR 19, O2 sats 95% on room air. Hand off given to receiving RN
[2022-11-28 12:53] LABS: Lamotrigine 2.4 mcg/mL (3.0-15.0)
== END 2022-11-26 08:26 | disposition short-term general hospital (02) ==
PROVIDERS: Student in an Organized Health Care Education/Training Program; Emergency Provider Emergency Medicine; PCP Nurse Practitioner
DX: R41.82 Altered mental status, unspecified; G40.909 Epilepsy, unspecified, not intractable, without status epilepticus; Z79.899 Other long term (current) drug therapy; R45.1 Restlessness and agitation; Z95.0 Presence of cardiac pacemaker; Z79.82 Long term (current) use of aspirin; Z79.4 Long term (current) use of insulin; E11.22 Type 2 diabetes mellitus with diabetic chronic kidney disease; E11.649 Type 2 diabetes mellitus with hypoglycemia without coma; N18.6 End stage renal disease; I12.0 Hypertensive chronic kidney disease with stage 5 chronic kidney disease or end stage renal disease
CPT/HCPCS: 80053; 80175; 82962; 93005; 96365; 96366; 96375; 99291; 70450; 71046; 80320; 81003; 82140; 83735; 84443; 84484; 85025; 93010; J1953; J2060

== ENCOUNTER → 2022-12-28 10:57 | Outpatient (BNVA) | payer MEDICARE, MEDICAID, SELFPAY | PROVIDERS: PCP Nurse Practitioner; Visit Provider Internal Medicine Cardiovascular Disease | DX: Z99.2 Dependence on renal dialysis (principal); E11.22 Type 2 diabetes mellitus with diabetic chronic kidney disease; Z79.4 Long term (current) use of insulin; I73.9 Peripheral vascular disease, unspecified; Z95.0 Presence of cardiac pacemaker | CPT/HCPCS: 99214 ==

== ENCOUNTER → 2023-02-08 12:37 | Outpatient (BNVA) | payer MEDICARE, MEDICAID, SELFPAY | PROVIDERS: PCP Nurse Practitioner; Referring Provider Nurse Practitioner; Visit Provider Psychiatry & Neurology Neurology | DX: R56.9 Unspecified convulsions (principal); R41.3 Other amnesia; Z86.73 Personal history of transient ischemic attack (TIA), and cerebral infarction without residual deficits; E11.22 Type 2 diabetes mellitus with diabetic chronic kidney disease; I12.9 Hypertensive chronic kidney disease with stage 1 through stage 4 chronic kidney disease, or unspecified chronic kidney disease; N18.4 Chronic kidney disease, stage 4 (severe) | CPT/HCPCS: 99215 ==

== ENCOUNTER 2023-04-03 03:45 | Outpatient (CLI) | payer MEDICARE, MEDICAID, SELFPAY ==
--- OUTSIDE RECORDS SUMMARY | 2023-04-03 03:47 | XMS_ITS ---
Author Name Jesse Perezcy Address [address] [place] [address] Phone [phone] Organization [facility] e, NA DOCUMENT DISCLAIMER Multiple document versions may exist, please be sure you review the latest version. The information in the [facility] Emergency Department Progress Note Document represents a providers documented clinical note containing certain health and medical information. It may not contain the complete medical history for the patient and should be independently verified. The represented time in the document is Eastern Time PROVIDER ROUNDING NOTE BASIC Patient:?Vianca?Mars,?1960,?61y,?F Dialysis?Location:[facility] Attending?Touch Up Worker:?Beto?Russ Service?Date:?07/31/2022 Service?Provider:?Tawana?Chris,?WRAPPING MACHINE OPERATOR I?met?face?to?face?with?the?patient?today. OVERVIEW The?patient?presented?with?ESRD?on?dialysis Primary?cause?of?renal?failure:?Type?2?diabetes?mellitus&#16 0;with?diabetic?chronic?kidney?disease Comments:?07/31/22?-?Working?with?PT. 07/26/22?-?Stable?dialysis?treatment?with?no?complaints?or acute?issues.? 4/3?patient?seen?on?dialysis.?Reasonable?intradialytic?weight gain.? Medications?and?labs?reviewed. LAST?HOSPITALIZATION Discharge?Diagnosis:?N39.0?Urinary?tract?infection,?site?not specified Admission?Date?06/18/22 Discharge?Date?06/24/22 DIALYSIS?PRESCRIPTION ??IHD?3x?Week?Start?date:?07/19/22 ??Dialyzer:?180NRe?Optiflux ??BFR:?450 ??DFR:?Manual?500 ??Potassium:?2.0 ??Sodium:?135 ??EDW:?82 ??Duration:?4:00 ??Calcium:?2.5 ??Bicarb:?35 ??Rx?updated?on:?07/19/2022 TREATMENT?ASSESSMENT BP?Stand?Pre ??07/28/2022:?133/41 ??07/24/2022:?139/55 BP?Sit?Pre ??07/28/2022:?184/82 ??07/26/2022:?158/77 ??07/24/2022:?158/86 BP?Stand?Post ??07/28/2022:?162/70 ??07/24/2022:?130/66 BP?Sit?Post ??07/28/2022:?171/77 ??07/26/2022:?189/76 ??07/24/2022:?139/67 Tx?Duration ??07/28/2022:?4:04 ??07/26/2022:?4:04 ??07/24/2022:?4:04 Missed?Treatments 0?-?last?30?days 0?-?last?60?days FLUID?ASSESSMENT EDW?(kg) ??07/28/2022:?82.0 ??07/26/2022:?82.0 ??07/24/2022:?82.0 Weight?Pre?(kg) ??07/28/2022:?83.3 ??07/26/2022:?83.4 ??07/24/2022:?85.0 Weight?Post?(kg) ??07/28/2022:?82.1 ??07/26/2022:?82.0 ??07/24/2022:?81.6 PWV?(kg) ??07/28/2022:?0.1 ??07/26/2022:?0.0 ??07/24/2022:?-0.4 UF?Rate?(mL/kg/hr) ??07/28/2022:?3.6 ??07/26/2022:?4.2 ??07/24/2022:?10.2 ADEQUACY?ASSESSMENT spKt/V,?URR ??07/24/2022:?1.84,?78.0 ??06/26/2022:?1.9,?79.0 ??06/07/2022:?1.86,?80.0 ACCESS?ASSESSMENT ??Access?Type:?AVGraft ??Access?SubType:?Synthetic?-?[place]?Acuseal ??Access?Status:?Active?(In?Use)?-?08/27/2020 ??Access?Location:?Right?Upper?Arm ??Created:?06/15/2020 Flow ??07/31/2022:?>2000 ??06/28/2022:?847 ??05/31/2022:?877 ANEMIA?ASSESSMENT HGB,?TSAT ??07/24/2022:?11.3,?28.0 ??07/17/2022:?10.4,?- ??07/10/2022:?10.4,?- ?? Ferritin ??07/24/2022:?811.0 ??06/26/2022:?1337.0 ??06/07/2022:?1042.0 Mircera,?IVP?(mcg) ??07/21/2022:?225 ??07/07/2022:?225 ??06/09/2022:?225 BMM?ASSESSMENT Phosphorus,?Calcium ??07/24/2022:?2.5,?9.3 ??06/26/2022:?4.2,?8.8 ??06/07/2022:?3.4,?9.4 ?? PTH,?Intact ??07/24/2022:?231.0 ??06/26/2022:?254.0 ??06/07/2022:?146.0 Vitamin?D?(Calcitriol)?Oral?(mcg) ??07/28/2022:?0.25 ??07/26/2022:?0.25 ??07/24/2022:?0.25 NUTRITION?ASSESSMENT Albumin,?Potassium ??07/24/2022:?4.0,?4.2 ??06/26/2022:?3.5,?5.4 ??06/07/2022:?3.8,?4.9 ?? eNPCR ??07/24/2022:?0.84 ??04/24/2022:?1.27 ??04/03/2022:?0.99 DIAGNOSIS Chief?Complaint:?N18.6?End?stage?renal?disease Patient?data?updated?07/31/2022?at?1:52?PM Signed?By:?Chris,?Tawana,?WRAPPING MACHINE OPERATOR??on?07/31/2022?1:54:25?PM END OF DOCUMENT
--- OUTSIDE RECORDS SUMMARY | 2023-04-03 03:47 | XMS_ITS ---
Author Name Beto Solano Address [address] [place] [id number] Phone [phone] Organization [facility] e, NA DOCUMENT DISCLAIMER Multiple document versions may exist, please be sure you review the latest version. The information in the [facility] Progress Note Document represents a providers documented clinical note containing certain health and medical information. It may not contain the complete medical history for the patient and should be independently verified. The represented time in the document is Eastern Time PROVIDER ROUNDING NOTE BASIC Patient:Oliver?Mars,?1960,?62y,?F Dialysis?Location:?[facility] Attending?Turbine Subassembler:?Beto?Russ Service?Date:?09/22/2022 Service?Provider:?Beto?Russ,? I?met?face?to?face?with?the?patient?today. OVERVIEW The?patient?presented?with?ESRD?on?dialysis Primary?cause?of?renal?failure:?Type?2?diabetes?mellitus&#16 0;with?diabetic?chronic?kidney?disease Comments:?6/2?doing?well/no?acute?issues DIALYSIS?PRESCRIPTION ??IHD?3x?Week?Start?date:?08/04/22 ??Dialyzer:?180NRe?Optiflux ??BFR:?450 ??DFR:?Manual?500 ??Potassium:?2.0 ??Sodium:?135 ??EDW:?81.5 ??Duration:?4:00 ??Calcium:?2.5 ??Bicarb:?35 ??Rx?updated?on:?08/03/2022 TREATMENT?ASSESSMENT BP?Stand?Pre ??09/20/2022:?156/68 ??09/18/2022:?155/67 ??09/15/2022:?186/76 BP?Sit?Pre ??09/20/2022:?201/81 ??09/18/2022:?175/75 ??09/15/2022:?162/70 BP?Stand?Post ??09/20/2022:?128/86 ??09/15/2022:?150/29 BP?Sit?Post ??09/20/2022:?118/66 ??09/18/2022:?115/87 ??09/15/2022:?177/78 Tx?Duration ??09/20/2022:?4:03 ??09/18/2022:?4:04 ??09/15/2022:?3:52 Missed?Treatments 0?-?last?30?days 0?-?last?60?days FLUID?ASSESSMENT EDW?(kg) ??09/20/2022:?81.5 ??09/18/2022:?81.5 ??09/15/2022:?81.5 Weight?Pre?(kg) ??09/20/2022:?85.0 ??09/18/2022:?85.7 ??09/15/2022:?83.9 Weight?Post?(kg) ??09/20/2022:?81.6 ??09/18/2022:?82.0 ??09/15/2022:?81.4 PWV?(kg) ??09/20/2022:?0.1 ??09/18/2022:?0.5 ??09/15/2022:?-0.1 UF?Rate?(mL/kg/hr) ??09/20/2022:?10.3 ??09/18/2022:?11.1 ??09/15/2022:?7.9 ADEQUACY?ASSESSMENT spKt/V,?URR ??08/21/2022:?1.62,?74.0 ??07/24/2022:?1.84,?78.0 ??06/26/2022:?1.9,?79.0 ACCESS?ASSESSMENT ??Access?Type:?AVGraft ??Access?SubType:?Synthetic?-?[place]?Acuseal ??Access?Status:?Active?(In?Use)?-?08/27/2020 ??Access?Location:?Right?Upper?Arm ??Created:?06/15/2020 Flow ??08/23/2022:?1048 ??08/02/2022:?1240 ??07/31/2022:?>2000 ANEMIA?ASSESSMENT HGB ??09/11/2022:?11.0 ??09/04/2022:?12.1 ??08/28/2022:?12.7 ?? Ferritin ??08/21/2022:?907.0 ??07/24/2022:?811.0 ??06/26/2022:?1337.0 Mircera,?IVP?(mcg) ??08/04/2022:?225 ??07/21/2022:?225 ??07/07/2022:?225 Iron?Sucrose?(Venofer)?(mg) ??08/09/2022:?100 ??08/07/2022:?100 ??08/04/2022:?100 BMM?ASSESSMENT Phosphorus,?Calcium ??08/21/2022:?4.1,?8.9 ??07/24/2022:?2.5,?9.3 ??06/26/2022:?4.2,?8.8 ?? PTH,?Intact ??08/21/2022:?369.0 ??07/24/2022:?231.0 ??06/26/2022:?254.0 Vitamin?D?(Calcitriol)?Oral?(mcg) ??09/20/2022:?0.25 ??09/18/2022:?0.25 ??09/15/2022:?0.25 NUTRITION?ASSESSMENT Albumin,?Potassium ??08/21/2022:?4.4,?4.7 ??07/24/2022:?4.0,?4.2 ??06/26/2022:?3.5,?5.4 ?? eNPCR ??08/21/2022:?1.07 ??07/24/2022:?0.84 ??04/24/2022:?1.27 Patient?data?updated?09/22/2022?at?11:51?AM Signed?By:?Russ,?Beto,???on?09/22/2022?11:52:15 AM END OF DOCUMENT
--- OUTSIDE RECORDS SUMMARY | 2023-04-03 03:47 | XMS_ITS ---
Author Name Bryn Whitfield [facility] Address [address] [place] [address] Phone [phone] Organization [facility] e, NA DOCUMENT DISCLAIMER The information in the [facility] Dialysis Provider Note Document represents a providersdocumented clinical note containing certain health and medical information. It may not contain the complete medical history for the patient and should be independently verified. The represented time in the document is Eastern Time PROVIDER ROUNDING NOTE BASIC Patient:?Vianca?Mars,?1960,?61y,?F Dialysis?Location:?[facility] Attending?Rn Intake:?Beto?Russ Service?Date:?05/10/2022 Service?Provider:?Caprice?Roseann,?SNOWSPORT INSTRUCTOR I?met?face?to?face?with?the?patient?today. OVERVIEW The?patient?presented?with?ESRD?on?dialysis Primary?cause?of?renal?failure:?Type?2?diabetes?mellitus&#16 0;with?diabetic?chronic?kidney?disease Comments:?05/10/22-?Tolerating?HD?well.? 04/24/22?doing?ok LAST?HOSPITALIZATION Discharge?Diagnosis:?J96.91?Respiratory?failure,?unspecified?with hypoxia J90?Pleural?effusion,?not?elsewhere?classified I16.9?Hypertensive?crisis,?unspecified Admission?Date?05/23/21 Discharge?Date?05/26/21 DIALYSIS?PRESCRIPTION ??IHD?3x?Week?Start?date:?05/01/22 ??Dialyzer:?180NRe?Optiflux ??BFR:?450 ??DFR:?Manual?500 ??Potassium:?2.0 ??Sodium:?135 ??EDW:?83 ??Duration:?4:00 ??Calcium:?2.5 ??Bicarb:?35 ??Rx?updated?on:?05/01/2022 TREATMENT?ASSESSMENT BP?Stand?Pre ??05/05/2022:?161/90 BP?Sit?Pre ??05/08/2022:?151/76 ??05/05/2022:?127/71 ??05/03/2022:?149/69 BP?Sit?Post ??05/08/2022:?131/67 ??05/05/2022:?170/67 ??05/03/2022:?120/59 Tx?Duration ??05/08/2022:?4:02 ??05/05/2022:?1:39 ??05/03/2022:?3:56 Missed?Treatments 0?-?last?30?days 0?-?last?60?days FLUID?ASSESSMENT EDW?(kg) ??05/08/2022:?83.0 ??05/05/2022:?83.0 ??05/03/2022:?83.0 Weight?Pre?(kg) ??05/08/2022:?85.8 ??05/05/2022:?86.3 ??05/03/2022:?86.4 Weight?Post?(kg) ??05/08/2022:?83.0 ??05/05/2022:?84.7 ??05/03/2022:?83.5 PWV?(kg) ??05/08/2022:?0.0 ??05/05/2022:?1.7 ??05/03/2022:?0.5 UF?Rate?(mL/kg/hr) ??05/08/2022:?8.4 ??05/05/2022:?11.4 ??05/03/2022:?8.8 ADEQUACY?ASSESSMENT spKt/V,?URR ??04/24/2022:?2.04,?82.0 ??04/03/2022:?2.03,?82.0 ??03/06/2022:?1.76,?77.0 ACCESS?ASSESSMENT ??Access?Type:?AVGraft ??Access?SubType:?Synthetic?-?[place]?Acuseal ??Access?Status:?Active?(In?Use)?-?08/27/2020 ??Access?Location:?Right?Upper?Arm ??Created:?06/15/2020 Flow ??04/26/2022:?634 ??04/05/2022:?1015 ??03/22/2022:?932 ANEMIA?ASSESSMENT HGB ??05/08/2022:?10.3 ??05/03/2022:?6.8 ??05/01/2022:?7.2 ?? Ferritin ??04/24/2022:?1376.0 ??04/03/2022:?1041.0 ??03/06/2022:?1404.0 Mircera,?IVP?(mcg) ??04/26/2022:?225 ??02/17/2022:?75 Iron?Sucrose?(Venofer)?(mg) ??02/24/2022:?100 ??02/22/2022:?100 ??02/20/2022:?100 BMM?ASSESSMENT Phosphorus,?Calcium ??04/24/2022:?3.1,?9.1 ??04/03/2022:?3.1,?8.9 ??03/06/2022:?4.6,?9.1 ?? PTH,?Intact ??04/24/2022:?285.0 ??04/03/2022:?387.0 ??03/06/2022:?352.0 Vitamin?D?(Calcitriol)?Oral?(mcg) ??05/08/2022:?0.25 ??05/05/2022:?0.25 ??05/03/2022:?0.25 NUTRITION?ASSESSMENT Albumin,?Potassium ??04/24/2022:?4.1,?4.8 ??04/03/2022:?4.2,?4.6 ??03/06/2022:?4.2,?5.5 ?? eNPCR ??04/24/2022:?1.27 ??04/03/2022:?0.99 ??03/06/2022:?1.43 DIAGNOSIS Chief?Complaint:?N18.6?End?stage?renal?disease Patient?data?updated?05/10/2022?at?1:06?PM Signed?By:?Asmita-Baylee,?Caprice,?SNOWSPORT INSTRUCTOR??on?05/10/2022?1:07:21?PM END OF DOCUMENT
--- OUTSIDE RECORDS SUMMARY | 2023-04-03 03:47 | XMS_ITS ---
Author Name Beto Solano Address [address] [place] [address] Phone [phone] Organization [facility] e, NA DOCUMENT DISCLAIMER Multiple document versions may exist, please be sure you review the latest version. The information in the [facility] Progress Note Document represents a providers documented clinical note containing certain health and medical information. It may not contain the complete medical history for the patient and should be independently verified. The represented time in the document is Eastern Time PROVIDER ROUNDING NOTE BASIC Patient:?Vianca?Mars,?1960,?62y,?F Dialysis?Location:?[facility] Attending?Deputy Probation Officer:?Ronal Service?Date:?01/08/2023 Service?Provider:?Beto?Russ,? I?met?face?to?face?with?the?patient?today. OVERVIEW The?patient?presented?with?ESRD?on?dialysis Primary?cause?of?renal?failure:?Type?2?diabetes?mellitus&#16 0;with?diabetic?chronic?kidney?disease Comments:?01/08?moved?into?new?living?situation.?Overall?doing?ok DIALYSIS?PRESCRIPTION ??IHD?3x?Week?Start?date:?01/01/23 ??Dialyzer:?180NRe?Optiflux ??BFR:?450 ??DFR:?Manual?500 ??Potassium:?2.0 ??Sodium:?135 ??EDW:?77 ??Duration:?4:00 ??Calcium:?2.5 ??Bicarb:?35 ??Rx?updated?on:?12/29/2022 TREATMENT?ASSESSMENT BP?Stand?Pre ??01/05/2023:?138/68 ??01/03/2023:?220/99 ??01/01/2023:?185/85 BP?Sit?Pre ??01/05/2023:?167/84 ??01/03/2023:?214/99 ??01/01/2023:?169/91 BP?Stand?Post ??01/05/2023:?143/77 ??01/03/2023:?142/69 ??01/01/2023:?178/98 BP?Sit?Post ??01/05/2023:?145/72 ??01/03/2023:?177/86 ??01/01/2023:?180/90 Tx?Duration ??01/05/2023:?4:02 ??01/03/2023:?4:21 ??01/01/2023:?4:03 Missed?Treatments 0?-?last?30?days 0?-?last?60?days FLUID?ASSESSMENT EDW?(kg) ??01/05/2023:?77.0 ??01/03/2023:?77.0 ??01/01/2023:?77.0 Weight?Pre?(kg) ??01/05/2023:?79.7 ??01/03/2023:?81.2 ??01/01/2023:?81.2 Weight?Post?(kg) ??01/05/2023:?76.7 ??01/03/2023:?77.1 ??01/01/2023:?77.9 PWV?(kg) ??01/05/2023:?-0.3 ??01/03/2023:?0.1 ??01/01/2023:?0.9 UF?Rate?(mL/kg/hr) ??01/05/2023:?9.7 ??01/03/2023:?12.2 ??01/01/2023:?10.5 ADEQUACY?ASSESSMENT spKt/V,?URR ??12/25/2022:?1.58,?72.0 ??12/20/2022:?1.17,?63.0 ??11/29/2022:?1.39,?69.0 ACCESS?ASSESSMENT ??Access?Type:?CVCatheter ??Access?SubType:?Tunneled ??Access?Status:?Active?(In?Use)?-?11/06/2022 ??Access?Location:?Neck ??Placed:?11/06/2022 ANEMIA?ASSESSMENT HGB,?TSAT ??01/01/2023:?10.6,?- ??12/25/2022:?11.1,?43.0 ??12/18/2022:?11.5,?- ?? Ferritin ??12/25/2022:?998.0 ??11/29/2022:?926.0 ??11/06/2022:?1000.0 Mircera,?IVP?(mcg) ??11/24/2022:?225 ??11/10/2022:?225 ??10/18/2022:?200 BMM?ASSESSMENT Phosphorus,?Calcium ??12/25/2022:?2.7,?9.2 ??12/04/2022:?-,?9.0 ??11/29/2022:?2.7,?9.1 ?? PTH,?Intact ??12/25/2022:?458.0 ??11/29/2022:?270.0 ??11/06/2022:?323.0 Vitamin?D?(Calcitriol)?Oral?(mcg) ??01/05/2023:?0.25 ??01/03/2023:?0.25 ??01/01/2023:?0.25 NUTRITION?ASSESSMENT Albumin,?Potassium ??12/25/2022:?4.1,?4.7 ??12/04/2022:?3.9,?5.0 ??11/29/2022:?4.2,?3.8 ?? eNPCR ??12/25/2022:?1.25 ??12/20/2022:?0.63 ??11/29/2022:?0.54 Patient?data?updated?01/08/2023?at?1:21?PM Signed?By:?Russ,?Beto,???on?01/08/2023?1:21:43?PM END OF DOCUMENT
--- OUTSIDE RECORDS SUMMARY | 2023-04-03 03:47 | XMS_ITS ---
Author Name Jesse Perezcy Address [address] [place] [phone] Phone [phone] Organization [facility] e, NA DOCUMENT DISCLAIMER Multiple document versions may exist, please be sure you review the latest version. The information in the [facility] Progress Note Document represents a providers documented clinical note containing certain health and medical information. It may not contain the complete medical history for the patient and should be independently verified. The represented time in the document is Eastern Time PROVIDER ROUNDING NOTE BASIC Patient:Oliver?Mars,?1960,?62y,?F Dialysis?Location:?[facility] Attending?Network Architect Manager:?Beto?Russ Service?Date:?09/27/2022 Service?Provider:?Tawana?Chris,?CARD LACER I?met?face?to?face?with?the?patient?today. OVERVIEW The?patient?presented?with?ESRD?on?dialysis Primary?cause?of?renal?failure:?Type?2?diabetes?mellitus&#16 0;with?diabetic?chronic?kidney?disease Comments:?09/27/22?-?Stable?treatment?with?no?complaints?or acute?issues.? 63?doing?well/no?acute?issues Medications?and?labs?reviewed. LAST?HOSPITALIZATION Discharge?Diagnosis:?N39.0?Urinary?tract?infection,?site?not specified Admission?Date?06/18/22 Discharge?Date?06/24/22 DIALYSIS?PRESCRIPTION ??IHD?3x?Week?Start?date:?08/04/22 ??Dialyzer:?180NRe?Optiflux ??BFR:?450 ??DFR:?Manual?500 ??Potassium:?2.0 ??Sodium:?135 ??EDW:?81.5 ??Duration:?4:00 ??Calcium:?2.5 ??Bicarb:?35 ??Rx?updated?on:?08/03/2022 TREATMENT?ASSESSMENT BP?Stand?Pre ??09/25/2022:?176/108 ??09/20/2022:?156/68 BP?Sit?Pre ??09/25/2022:?182/82 ??09/22/2022:?181/80 ??09/20/2022:?201/81 BP?Stand?Post ??09/25/2022:?141/57 ??09/22/2022:?150/69 ??09/20/2022:?128/86 BP?Sit?Post ??09/25/2022:?117/55 ??09/22/2022:?126/60 ??09/20/2022:?118/66 Tx?Duration ??09/25/2022:?4:03 ??09/22/2022:?4:03 ??09/20/2022:?4:03 Missed?Treatments 0?-?last?30?days 0?-?last?60?days FLUID?ASSESSMENT EDW?(kg) ??09/25/2022:?81.5 ??09/22/2022:?81.5 ??09/20/2022:?81.5 Weight?Pre?(kg) ??09/25/2022:?85.4 ??09/22/2022:?83.6 ??09/20/2022:?85.0 Weight?Post?(kg) ??09/25/2022:?81.5 ??09/22/2022:?81.5 ??09/20/2022:?81.6 PWV?(kg) ??09/25/2022:?0.0 ??09/22/2022:?0.0 ??09/20/2022:?0.1 UF?Rate?(mL/kg/hr) ??09/25/2022:?11.8 ??09/22/2022:?6.4 ??09/20/2022:?10.3 ADEQUACY?ASSESSMENT spKt/V,?URR ??08/21/2022:?1.62,?74.0 ??07/24/2022:?1.84,?78.0 ??06/26/2022:?1.9,?79.0 ACCESS?ASSESSMENT ??Access?Type:?AVGraft ??Access?SubType:?Synthetic?-?[place]?Acuseal ??Access?Status:?Active?(In?Use)?-?08/27/2020 ??Access?Location:?Right?Upper?Arm ??Created:?06/15/2020 Flow ??08/23/2022:?1048 ??08/02/2022:?1240 ??07/31/2022:?>2000 ANEMIA?ASSESSMENT HGB ??09/11/2022:?11.0 ??09/04/2022:?12.1 ??08/28/2022:?12.7 ?? Ferritin ??08/21/2022:?907.0 ??07/24/2022:?811.0 ??06/26/2022:?1337.0 Mircera,?IVP?(mcg) ??08/04/2022:?225 ??07/21/2022:?225 ??07/07/2022:?225 Iron?Sucrose?(Venofer)?(mg) ??08/09/2022:?100 ??08/07/2022:?100 ??08/04/2022:?100 BMM?ASSESSMENT Phosphorus,?Calcium ??08/21/2022:?4.1,?8.9 ??07/24/2022:?2.5,?9.3 ??06/26/2022:?4.2,?8.8 ?? PTH,?Intact ??08/21/2022:?369.0 ??07/24/2022:?231.0 ??06/26/2022:?254.0 Vitamin?D?(Calcitriol)?Oral?(mcg) ??09/25/2022:?0.25 ??09/22/2022:?0.25 ??09/20/2022:?0.25 NUTRITION?ASSESSMENT Albumin,?Potassium ??08/21/2022:?4.4,?4.7 ??07/24/2022:?4.0,?4.2 ??06/26/2022:?3.5,?5.4 ?? eNPCR ??08/21/2022:?1.07 ??07/24/2022:?0.84 ??04/24/2022:?1.27 DIAGNOSIS Chief?Complaint:?N18.6?End?stage?renal?disease Patient?data?updated?09/27/2022?at?1:02?PM Signed?By:?Chris,?Tawana,?CARD LACER??on?09/27/2022?1:03:01?PM END OF DOCUMENT
--- OUTSIDE RECORDS SUMMARY | 2023-04-03 03:47 | XMS_ITS ---
Author Name Jesse Perezcy Address [address] [place] [address] Phone [phone] Organization [facility] e, NA DOCUMENT DISCLAIMER Multiple document versions may exist, please be sure you review the latest version. The information in the [facility] Progress Note Document represents a providers documented clinical note containing certain health and medical information. It may not contain the complete medical history for the patient and should be independently verified. The represented time in the document is Eastern Time PROVIDER ROUNDING NOTE BASIC Patient:?Vianca?Mars,?1960,?62y,?F Dialysis?Location:?[facility] Attending?Bullet Lubricating Machine Operator:?Beto?Russ Service?Date:?01/29/2023 Service?Provider:?Tawana?Chris,?DRYING ROOM ATTENDANT I?met?face?to?face?with?the?patient?today. OVERVIEW The?patient?presented?with?ESRD?on?dialysis Primary?cause?of?renal?failure:?Type?2?diabetes?mellitus&#16 0;with?diabetic?chronic?kidney?disease Comments:?01/29/23?-?Upset?with?her?new?living?situation,&#16 0;she?thought?it?would?be?temporary?and?learned?that?it ?is?permanent,?missing?her?previous?caregivers.?Stable?treat ment?today?with?no?acute?issues.?? 01/17?now?in?new?home?/settling?in. 01/08?moved?into?new?living?situation.?Overall?doing?ok Medications?and?labs?reviewed. 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 Admission?Date?11/30/22 Discharge?Date?12/01/22 DIALYSIS?PRESCRIPTION ??IHD?3x?Week?Start?date:?01/22/23 ??Dialyzer:?180NRe?Optiflux ??BFR:?450 ??DFR:?Manual?500 ??Potassium:?2.0 ??Sodium:?135 ??EDW:?76.5 ??Duration:?4:00 ??Calcium:?2.5 ??Bicarb:?35 ??Rx?updated?on:?01/22/2023 TREATMENT?ASSESSMENT BP?Stand?Pre ??01/26/2023:?155/76 ??01/22/2023:?102/64 BP?Sit?Pre ??01/26/2023:?184/78 ??01/24/2023:?211/92 ??01/22/2023:?180/79 BP?Stand?Post ??01/26/2023:?120/59 ??01/24/2023:?141/77 ??01/22/2023:?106/53 BP?Sit?Post ??01/26/2023:?129/56 ??01/24/2023:?149/80 ??01/22/2023:?128/60 Tx?Duration ??01/26/2023:?4:01 ??01/24/2023:?4:10 ??01/22/2023:?3:43 Missed?Treatments 0?-?last?30?days 0?-?last?60?days FLUID?ASSESSMENT EDW?(kg) ??01/26/2023:?76.5 ??01/24/2023:?76.5 ??01/22/2023:?76.5 Weight?Pre?(kg) ??01/26/2023:?79.8 ??01/24/2023:?80.8 ??01/22/2023:?81.4 Weight?Post?(kg) ??01/26/2023:?76.6 ??01/24/2023:?77.4 ??01/22/2023:?78.3 PWV?(kg) ??01/26/2023:?0.1 ??01/24/2023:?0.9 ??01/22/2023:?1.8 UF?Rate?(mL/kg/hr) ??01/26/2023:?10.4 ??01/24/2023:?10.5 ??01/22/2023:?10.7 ADEQUACY?ASSESSMENT spKt/V,?URR ??01/22/2023:?1.83,?79.0 ??12/25/2022:?1.58,?72.0 ??12/20/2022:?1.17,?63.0 ACCESS?ASSESSMENT ??Access?Type:?CVCatheter ??Access?SubType:?Tunneled ??Access?Status:?Active?(In?Use)?-?11/06/2022 ??Access?Location:?Neck ??Placed:?11/06/2022 ANEMIA?ASSESSMENT HGB,?TSAT ??01/22/2023:?8.8,?89.0 ??01/15/2023:?9.1,?- ??01/08/2023:?9.7,?- ?? Ferritin ??01/22/2023:?1153.0 ??12/25/2022:?998.0 ??11/29/2022:?926.0 Mircera,?IVP?(mcg) ??01/26/2023:?225 ??11/24/2022:?225 ??11/10/2022:?225 BMM?ASSESSMENT Comments:?01/17?hold?renvela Phosphorus,?Calcium ??01/22/2023:?3.0,?8.8 ??12/25/2022:?2.7,?9.2 ??12/04/2022:?-,?9.0 ?? PTH,?Intact ??01/22/2023:?277.0 ??12/25/2022:?458.0 ??11/29/2022:?270.0 Vitamin?D?(Calcitriol)?Oral?(mcg) ??01/26/2023:?0.25 ??01/24/2023:?0.25 ??01/22/2023:?0.25 NUTRITION?ASSESSMENT Albumin,?Potassium ??01/22/2023:?4.2,?6.0 ??12/25/2022:?4.1,?4.7 ??12/04/2022:?3.9,?5.0 ?? eNPCR ??01/22/2023:?1.28 ??12/25/2022:?1.25 ??12/20/2022:?0.63 DIAGNOSIS Chief?Complaint:?N18.6?End?stage?renal?disease Patient?data?updated?01/29/2023?at?10:28?AM Signed?By:?Chris,?Tawana,?DRYING ROOM ATTENDANT??on?01/29/2023?10:29:55 AM END OF DOCUMENT
--- OUTSIDE RECORDS SUMMARY | 2023-04-03 03:47 | XMS_ITS ---
Author Name Bryn Whitfield [facility] Address [address] [place] [address] Phone [phone] Organization [facility] e, NA DOCUMENT DISCLAIMER Multiple document versions may exist, please be sure you review the latest version. The information in the [facility] Progress Note Document represents a providers documented clinical note containing certain health and medical information. It may not contain the complete medical history for the patient and should be independently verified. The represented time in the document is Eastern Time PROVIDER ROUNDING NOTE BASIC Patient:?Vianca?Mars,?1960,?61y,?F Dialysis?Location:[facility] Attending?Petroleum Engineer:?Beto?Russ Service?Date:?05/31/2022 Service?Provider:?Caprice?Roseann,?MARKETING OPERATIONS SPECIALIST I?met?face?to?face?with?the?patient?today. OVERVIEW The?patient?presented?with?ESRD?on?dialysis Primary?cause?of?renal?failure:?Type?2?diabetes?mellitus&#16 0;with?diabetic?chronic?kidney?disease Comments:?05/31/22-?Tolerating?HD?well?and?denies?any?new&#160 ;complaints.?Metabolic?and?volume?parameters?reviewed.? 2?pelvic?fracture?improving DIALYSIS?PRESCRIPTION ??IHD?3x?Week?Start?date:?05/01/22 ??Dialyzer:?180NRe?Optiflux ??BFR:?450 ??DFR:?Manual?500 ??Potassium:?2.0 ??Sodium:?135 ??EDW:?83 ??Duration:?4:00 ??Calcium:?2.5 ??Bicarb:?35 ??Rx?updated?on:?05/01/2022 TREATMENT?ASSESSMENT BP?Sit?Pre ??05/29/2022:?151/63 ??05/26/2022:?158/77 ??05/24/2022:?164/71 BP?Sit?Post ??05/29/2022:?135/106 ??05/26/2022:?136/67 ??05/24/2022:?187/72 Tx?Duration ??05/29/2022:?3:32 ??05/26/2022:?4:01 ??05/24/2022:?4:07 Missed?Treatments 0?-?last?30?days 0?-?last?60?days FLUID?ASSESSMENT EDW?(kg) ??05/29/2022:?83.0 ??05/26/2022:?83.0 ??05/24/2022:?83.0 Weight?Pre?(kg) ??05/29/2022:?84.8 ??05/26/2022:?83.8 ??05/24/2022:?84.3 Weight?Post?(kg) ??05/29/2022:?82.9 ??05/26/2022:?82.9 ??05/24/2022:?82.8 PWV?(kg) ??05/29/2022:?-0.1 ??05/26/2022:?-0.1 ??05/24/2022:?-0.2 UF?Rate?(mL/kg/hr) ??05/29/2022:?6.5 ??05/26/2022:?2.7 ??05/24/2022:?4.4 ADEQUACY?ASSESSMENT spKt/V,?URR ??04/24/2022:?2.04,?82.0 ??04/03/2022:?2.03,?82.0 ??03/06/2022:?1.76,?77.0 ACCESS?ASSESSMENT ??Access?Type:?AVGraft ??Access?SubType:?Synthetic?-?[place]?Acuseal ??Access?Status:?Active?(In?Use)?-?08/27/2020 ??Access?Location:?Right?Upper?Arm ??Created:?06/15/2020 Flow ??04/26/2022:?634 ??04/05/2022:?1015 ??03/22/2022:?932 ANEMIA?ASSESSMENT HGB ??05/22/2022:?10.2 ??05/15/2022:?9.8 ??05/08/2022:?10.3 ?? Ferritin ??04/24/2022:?1376.0 ??04/03/2022:?1041.0 ??03/06/2022:?1404.0 Mircera,?IVP?(mcg) ??05/26/2022:?225 ??05/12/2022:?225 ??04/26/2022:?225 BMM?ASSESSMENT Phosphorus,?Calcium ??04/24/2022:?3.1,?9.1 ??04/03/2022:?3.1,?8.9 ??03/06/2022:?4.6,?9.1 ?? PTH,?Intact ??04/24/2022:?285.0 ??04/03/2022:?387.0 ??03/06/2022:?352.0 Vitamin?D?(Calcitriol)?Oral?(mcg) ??05/26/2022:?0.25 ??05/24/2022:?0.25 ??05/22/2022:?0.25 NUTRITION?ASSESSMENT Albumin,?Potassium ??04/24/2022:?4.1,?4.8 ??04/03/2022:?4.2,?4.6 ??03/06/2022:?4.2,?5.5 ?? eNPCR ??04/24/2022:?1.27 ??04/03/2022:?0.99 ??03/06/2022:?1.43 DIAGNOSIS Chief?Complaint:?N18.6?End?stage?renal?disease Patient?data?updated?05/31/2022?at?1:14?PM Signed?By:?Roseann,?Caprice,?MARKETING OPERATIONS SPECIALIST??on?05/31/2022?1:14:52?PM END OF DOCUMENT
--- OUTSIDE RECORDS SUMMARY | 2023-04-03 03:47 | XMS_ITS ---
Author Name Jesse Perezcy Address [address] [place] [address] Phone [phone] Organization [facility] e, NA DOCUMENT DISCLAIMER Multiple document versions may exist, please be sure you review the latest version. The information in the [facility] Progress Note Document represents a providers documented clinical note containing certain health and medical information. It may not contain the complete medical history for the patient and should be independently verified. The represented time in the document is Eastern Time PROVIDER ROUNDING NOTE BASIC Patient:Oliver?Mars,?1960,?62y,?F Dialysis?Location:[facility] Attending?Commercial Account Officer:?Beto?Russ Service?Date:?11/29/2022 Service?Provider:?Tawana?Chris,?WATER TREATMENT PLANT SUPERVISOR I?met?face?to?face?with?the?patient?today. OVERVIEW The?patient?presented?with?ESRD?on?dialysis Primary?cause?of?renal?failure:?Type?2?diabetes?mellitus&#16 0;with?diabetic?chronic?kidney?disease Comments:?11/29/22?-?Stable?treatment?with?no?acute?issues.&#1 60;States?she?has?a?seizure?over?the?weekend. 11/22?might?have?to?move?from?current?home?situation.?Will?let?social?worker?know? Medications?and?labs?reviewed. LAST?HOSPITALIZATION Discharge?Diagnosis:?L08.9?Local?infection?of?the?skin?and&# 160;subcutaneous?tissue,?unspecified Admission?Date?10/25/22 Discharge?Date?11/04/22 DIALYSIS?PRESCRIPTION ??IHD?3x?Week?Start?date:?08/04/22 ??Dialyzer:?180NRe?Optiflux ??BFR:?450 ??DFR:?Manual?500 ??Potassium:?2.0 ??Sodium:?135 ??EDW:?81.5 ??Duration:?4:00 ??Calcium:?2.5 ??Bicarb:?35 ??Rx?updated?on:?08/03/2022 TREATMENT?ASSESSMENT BP?Stand?Pre ??11/24/2022:?196/123 ??11/22/2022:?231/108 ??11/20/2022:?190/97 BP?Sit?Pre ??11/24/2022:?207/107 ??11/22/2022:?213/103 ??11/20/2022:?186/96 BP?Stand?Post ??11/24/2022:?171/127 ??11/22/2022:?167/69 ??11/20/2022:?176/98 BP?Sit?Post ??11/24/2022:?198/102 ??11/22/2022:?167/89 ??11/20/2022:?133/85 Tx?Duration ??11/24/2022:?3:55 ??11/22/2022:?4:10 ??11/20/2022:?4:01 Missed?Treatments 0?-?last?30?days 0?-?last?60?days FLUID?ASSESSMENT EDW?(kg) ??11/24/2022:?81.5 ??11/22/2022:?81.5 ??11/20/2022:?81.5 Weight?Pre?(kg) ??11/24/2022:?83.4 ??11/22/2022:?83.3 ??11/20/2022:?83.9 Weight?Post?(kg) ??11/24/2022:?81.0 ??11/22/2022:?82.1 ??11/20/2022:?81.0 PWV?(kg) ??11/24/2022:?-0.5 ??11/22/2022:?0.6 ??11/20/2022:?-0.5 UF?Rate?(mL/kg/hr) ??11/24/2022:?7.6 ??11/22/2022:?3.5 ??11/20/2022:?8.9 ADEQUACY?ASSESSMENT spKt/V,?URR ??11/17/2022:?1.45,?70.0 ??09/25/2022:?1.93,?80.0 ??08/21/2022:?1.62,?74.0 ACCESS?ASSESSMENT ??Access?Type:?AVGraft ??Access?SubType:?Synthetic?-?[place]?Acuseal ??Access?Status:?Active?(In?Use)?-?08/27/2020 ??Access?Location:?Right?Upper?Arm ??Created:?06/15/2020 Flow ??10/04/2022:?1047 ??08/23/2022:?1048 ??08/02/2022:?1240 ANEMIA?ASSESSMENT HGB,?TSAT ??11/20/2022:?10.4,?- ??11/13/2022:?8.6,?- ??11/06/2022:?9.4,?26.0 ?? Ferritin ??11/06/2022:?1000.0 ??10/11/2022:?1302.0 ??08/21/2022:?907.0 Mircera,?IVP?(mcg) ??11/24/2022:?225 ??11/10/2022:?225 ??10/18/2022:?200 BMM?ASSESSMENT Phosphorus,?Calcium ??11/20/2022:?-,?9.1 ??11/13/2022:?-,?8.2 ??11/06/2022:?3.8,?8.2 ?? PTH,?Intact ??11/06/2022:?323.0 ??10/11/2022:?351.0 ??09/25/2022:?227.0 Vitamin?D?(Calcitriol)?Oral?(mcg) ??11/24/2022:?0.25 ??11/22/2022:?0.25 ??11/20/2022:?0.25 NUTRITION?ASSESSMENT Albumin,?Potassium ??11/20/2022:?3.9,?4.0 ??11/13/2022:?3.7,?3.9 ??11/06/2022:?3.7,?5.8 ?? eNPCR ??11/17/2022:?0.57 ??09/25/2022:?1.27 ??08/21/2022:?1.07 DIAGNOSIS Chief?Complaint:?N18.6?End?stage?renal?disease Patient?data?updated?11/29/2022?at?1:22?PM Signed?By:?Chris,?Tawana,?[employer]??on?11/29/2022?1:23:00?PM END OF DOCUMENT
--- OUTSIDE RECORDS SUMMARY | 2023-04-03 03:47 | XMS_ITS ---
Author Name Beto Solano Address [address] [place] [phone] Phone [phone] Organization [facility] e, NA DOCUMENT DISCLAIMER Multiple document versions may exist, please be sure you review the latest version. The information in the [facility] Progress Note Document represents a providers documented clinical note containing certain health and medical information. It may not contain the complete medical history for the patient and should be independently verified. The represented time in the document is Eastern Time PROVIDER ROUNDING NOTE BASIC Revised?By:?Beto?Russ? Revised?Date:?11/08/2022?1:27:49?PM Revised?Reason:?Addendum Patient:?Vianca?Mars,?1960,?62y,?F Dialysis?Location:?[facility] Attending?Brewery Pumper:?Ronal Service?Date:?11/08/2022 Service?Provider:?Beto?Russ,? I?met?face?to?face?with?the?patient?today. 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 wound?vac.?Now?on?cefazolin?IV.?Will?check?on?duration. ?12/08?stop?date?listed?on?d/c?summary DIALYSIS?PRESCRIPTION ??IHD?3x?Week?Start?date:?08/04/22 ??Dialyzer:?180NRe?Optiflux ??BFR:?450 ??DFR:?Manual?500 ??Potassium:?2.0 ??Sodium:?135 ??EDW:?81.5 ??Duration:?4:00 ??Calcium:?2.5 ??Bicarb:?35 ??Rx?updated?on:?08/03/2022 TREATMENT?ASSESSMENT BP?Stand?Pre ??11/06/2022:?214/95 ??10/20/2022:?195/89 BP?Sit?Pre ??11/06/2022:?109/55 ??10/23/2022:?181/83 ??10/20/2022:?192/75 BP?Stand?Post ??11/06/2022:?180/102 ??10/23/2022:?156/90 BP?Sit?Post ??11/06/2022:?182/86 ??10/23/2022:?179/88 ??10/20/2022:?154/72 Tx?Duration ??11/06/2022:?4:05 ??10/23/2022:?4:04 ??10/20/2022:?4:02 Missed?Treatments 0?-?last?30?days 0?-?last?60?days FLUID?ASSESSMENT EDW?(kg) ??11/06/2022:?81.5 ??10/23/2022:?81.5 ??10/20/2022:?81.5 Weight?Pre?(kg) ??11/06/2022:?85.6 ??10/23/2022:?84.0 ??10/20/2022:?83.9 Weight?Post?(kg) ??11/06/2022:?82.3 ??10/23/2022:?81.5 ??10/20/2022:?81.3 PWV?(kg) ??11/06/2022:?0.8 ??10/23/2022:?0.0 ??10/20/2022:?-0.2 UF?Rate?(mL/kg/hr) ??11/06/2022:?9.8 ??10/23/2022:?7.5 ??10/20/2022:?7.9 ADEQUACY?ASSESSMENT spKt/V,?URR ??09/25/2022:?1.93,?80.0 ??08/21/2022:?1.62,?74.0 ??07/24/2022:?1.84,?78.0 ACCESS?ASSESSMENT ??Access?Type:?AVGraft ??Access?SubType:?Synthetic?-?Spring?Acuseal ??Access?Status:?Active?(In?Use)?-?08/27/2020 ??Access?Location:?Right?Upper?Arm ??Created:?06/15/2020 Flow ??10/04/2022:?1047 ??08/23/2022:?1048 ??08/02/2022:?1240 ANEMIA?ASSESSMENT HGB ??10/16/2022:?6.8 ??10/11/2022:?8.5 ??10/09/2022:?8.7 ?? Ferritin ??10/11/2022:?1302.0 ??08/21/2022:?907.0 ??07/24/2022:?811.0 Mircera,?IVP?(mcg) ??10/18/2022:?200 ??10/13/2022:?225 Iron?Sucrose?(Venofer)?(mg) ??08/09/2022:?100 BMM?ASSESSMENT Phosphorus,?Calcium ??10/11/2022:?3.0,?9.0 ??08/21/2022:?4.1,?8.9 ??07/24/2022:?2.5,?9.3 ?? PTH,?Intact ??10/11/2022:?351.0 ??09/25/2022:?227.0 ??08/21/2022:?369.0 Vitamin?D?(Calcitriol)?Oral?(mcg) ??11/06/2022:?0.25 ??10/23/2022:?0.25 ??10/20/2022:?0.25 NUTRITION?ASSESSMENT Albumin,?Potassium ??10/11/2022:?-,?4.0 ??09/25/2022:?3.8,?- ??08/21/2022:?4.4,?4.7 ?? eNPCR ??09/25/2022:?1.27 ??08/21/2022:?1.07 ??07/24/2022:?0.84 Patient?data?updated?11/08/2022?at?1:23?PM Signed?By:?Russ,?Beto,???on?11/08/2022?1:27:49?PM END OF DOCUMENT
--- OUTSIDE RECORDS SUMMARY | 2023-04-03 03:47 | XMS_ITS ---
Author Name Bryn Whitfield [facility] Address [address] [place] [id number] Phone [phone] Organization [facility] e, NA DOCUMENT DISCLAIMER Multiple document versions may exist, please be sure you review the latest version. The information in the [facility] Progress Note Document represents a providers documented clinical note containing certain health and medical information. It may not contain the complete medical history for the patient and should be independently verified. The represented time in the document is Eastern Time PROVIDER ROUNDING NOTE BASIC Revised?By:?Caprice?Roseann,?DATA COMPILER Revised?Date:?12/22/2022?12:36:55?PM Revised?Reason:?additional?information Patient:?Vianca?Mars,?1960,?62y,?F Dialysis?Location:?[facility] Attending?Stencil Inspector:?Beto?Russ Service?Date:?12/22/2022 Service?Provider:?Caprice?Roseann,?DATA COMPILER I?met?face?to?face?with?the?patient?today. OVERVIEW The?patient?presented?with?ESRD?on?dialysis Primary?cause?of?renal?failure:?Type?2?diabetes?mellitus&#16 0;with?diabetic?chronic?kidney?disease Comments:?12/22/22 Tolerating?HD?denies?any?concerns.?Blood?pressures?have?been ?elevated?last?three?sessions.?UFG?challenge?1L. Patient?also?has?been?scratching?CVC?site?which?is?note d?with?mild?redness?staff?asked?to?apply?light?coat&#16 0;of?bacitracin?and?dress?with?tegaderm.?Patient?education?o n?refraining?from?place?fingers?below?dressing?due?to?risk?for?infection. 12/11/22?-?Stable?treatment.? 11/29/22?-?Stable?treatment?with?no?acute?issues.?States? she?has?a?seizure?over?the?weekend. 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 Admission?Date?11/30/22 Discharge?Date?12/01/22 DIALYSIS?PRESCRIPTION ??IHD?3x?Week?Start?date:?12/11/22 ??Dialyzer:?180NRe?Optiflux ??BFR:?450 ??DFR:?Manual?500 ??Potassium:?2.0 ??Sodium:?135 ??EDW:?79.5 ??Duration:?4:00 ??Calcium:?2.5 ??Bicarb:?35 ??Rx?updated?on:?12/11/2022 TREATMENT?ASSESSMENT BP?Sit?Pre ??12/20/2022:?194/92 ??12/18/2022:?207/101 ??12/15/2022:?206/99 BP?Stand?Post ??12/20/2022:?175/89 ??12/15/2022:?214/100 BP?Sit?Post ??12/20/2022:?158/85 ??12/18/2022:?176/46 ??12/15/2022:?198/103 Tx?Duration ??12/20/2022:?3:58 ??12/18/2022:?4:06 ??12/15/2022:?4:15 Missed?Treatments 0?-?last?30?days 0?-?last?60?days FLUID?ASSESSMENT EDW?(kg) ??12/20/2022:?79.5 ??12/18/2022:?79.5 ??12/15/2022:?79.5 Weight?Pre?(kg) ??12/20/2022:?81.1 ??12/18/2022:?81.8 ??12/15/2022:?81.3 Weight?Post?(kg) ??12/20/2022:?79.4 ??12/18/2022:?79.4 ??12/15/2022:?79.9 PWV?(kg) ??12/20/2022:?-0.1 ??12/18/2022:?-0.1 ??12/15/2022:?0.4 UF?Rate?(mL/kg/hr) ??12/20/2022:?5.4 ??12/18/2022:?7.4 ??12/15/2022:?4.1 ADEQUACY?ASSESSMENT spKt/V,?URR ??11/29/2022:?1.39,?69.0 ??11/17/2022:?1.45,?70.0 ??09/25/2022:?1.93,?80.0 ACCESS?ASSESSMENT ??Access?Type:?AVGraft ??Access?SubType:?Synthetic?-?[place]?Acuseal ??Access?Status:?Active?(In?Use)?-?08/27/2020 ??Access?Location:?Right?Upper?Arm ??Created:?06/15/2020 Flow ??10/04/2022:?1047 ??08/23/2022:?1048 ??08/02/2022:?1240 ANEMIA?ASSESSMENT HGB ??12/18/2022:?11.5 ??12/11/2022:?11.1 ??12/04/2022:?12.1 ?? Ferritin ??11/29/2022:?926.0 ??11/06/2022:?1000.0 ??10/11/2022:?1302.0 Mircera,?IVP?(mcg) ??11/24/2022:?225 ??11/10/2022:?225 ??10/18/2022:?200 BMM?ASSESSMENT Phosphorus,?Calcium ??12/04/2022:?-,?9.0 ??11/29/2022:?2.7,?9.1 ??11/20/2022:?-,?9.1 ?? PTH,?Intact ??11/29/2022:?270.0 ??11/06/2022:?323.0 ??10/11/2022:?351.0 Vitamin?D?(Calcitriol)?Oral?(mcg) ??12/20/2022:?0.25 ??12/18/2022:?0.25 ??12/15/2022:?0.25 NUTRITION?ASSESSMENT Albumin,?Potassium ??12/04/2022:?3.9,?5.0 ??11/29/2022:?4.2,?3.8 ??11/20/2022:?3.9,?4.0 ?? eNPCR ??11/29/2022:?0.54 ??11/17/2022:?0.57 ??09/25/2022:?1.27 DIAGNOSIS Chief?Complaint:?N18.6?End?stage?renal?disease Patient?data?updated?12/22/2022?at?12:26?PM Signed?By:?Roseann,?Caprice,?DATA COMPILER??on?12/22/2022?12:36:55?PM END OF DOCUMENT
--- OUTSIDE RECORDS SUMMARY | 2023-04-03 03:47 | XMS_ITS ---
Author Name Jesse Perezcy Address [address] [place] [address] Phone [phone] Organization [facility] e, NA DOCUMENT DISCLAIMER Multiple document versions may exist, please be sure you review the latest version. The information in the [facility] Progress Note Document represents a providers documented clinical note containing certain health and medical information. It may not contain the complete medical history for the patient and should be independently verified. The represented time in the document is Eastern Time PROVIDER ROUNDING NOTE BASIC Patient:?Vianca?Mars,?1960,?62y,?F Dialysis?Location:?[facility] Attending?Service Center Technician:?Beto?Russ Service?Date:?11/13/2022 Service?Provider:?Tawana?Chris,?EMPLOYMENT CLERK I?met?face?to?face?with?the?patient?today. 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 out?her?catheter?in?her?sleep.?New?cath?placed?at? [facility]?this?am.?Running?well?on?dialysis.?Stable?treatment.&#1 60;Wound?vac?remains?in?place?on?old?AVG?site,?pt?states?it?is?healing?well.? 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 ?Now?on?cefazolin?IV.?Will?check?on?duration.?12/08&#160 ;stop?date?listed?on?d/c?summary Medications?and?labs?reviewed. LAST?HOSPITALIZATION Discharge?Diagnosis:?L08.9?Local?infection?of?the?skin?and&# 160;subcutaneous?tissue,?unspecified Admission?Date?10/25/22 Discharge?Date?11/04/22 DIALYSIS?PRESCRIPTION ??IHD?3x?Week?Start?date:?08/04/22 ??Dialyzer:?180NRe?Optiflux ??BFR:?450 ??DFR:?Manual?500 ??Potassium:?2.0 ??Sodium:?135 ??EDW:?81.5 ??Duration:?4:00 ??Calcium:?2.5 ??Bicarb:?35 ??Rx?updated?on:?08/03/2022 TREATMENT?ASSESSMENT BP?Stand?Pre ??11/08/2022:?190/102 ??11/06/2022:?214/95 BP?Sit?Pre ??11/10/2022:?174/90 ??11/08/2022:?195/98 ??11/06/2022:?109/55 BP?Stand?Post ??11/10/2022:?132/105 ??11/08/2022:?159/88 ??11/06/2022:?180/102 BP?Sit?Post ??11/10/2022:?172/92 ??11/08/2022:?111/93 ??11/06/2022:?182/86 Tx?Duration ??11/10/2022:?4:00 ??11/08/2022:?4:02 ??11/06/2022:?4:05 Missed?Treatments 0?-?last?30?days 0?-?last?60?days FLUID?ASSESSMENT EDW?(kg) ??11/10/2022:?81.5 ??11/08/2022:?81.5 ??11/06/2022:?81.5 Weight?Pre?(kg) ??11/10/2022:?84.9 ??11/08/2022:?83.9 ??11/06/2022:?85.6 Weight?Post?(kg) ??11/10/2022:?81.5 ??11/08/2022:?82.4 ??11/06/2022:?82.3 PWV?(kg) ??11/10/2022:?0.0 ??11/08/2022:?0.9 ??11/06/2022:?0.8 UF?Rate?(mL/kg/hr) ??11/10/2022:?10.4 ??11/08/2022:?4.5 ??11/06/2022:?9.8 ADEQUACY?ASSESSMENT spKt/V,?URR ??09/25/2022:?1.93,?80.0 ??08/21/2022:?1.62,?74.0 ??07/24/2022:?1.84,?78.0 ACCESS?ASSESSMENT ??Access?Type:?AVGraft ??Access?SubType:?Synthetic?-?[place]?Acuseal ??Access?Status:?Active?(In?Use)?-?08/27/2020 ??Access?Location:?Right?Upper?Arm ??Created:?06/15/2020 Flow ??10/04/2022:?1047 ??08/23/2022:?1048 ??08/02/2022:?1240 ANEMIA?ASSESSMENT HGB,?TSAT ??11/06/2022:?9.4,?26.0 ??10/16/2022:?6.8,?- ??10/11/2022:?8.5,?- ?? Ferritin ??11/06/2022:?1000.0 ??10/11/2022:?1302.0 ??08/21/2022:?907.0 Mircera,?IVP?(mcg) ??11/10/2022:?225 ??10/18/2022:?200 ??10/13/2022:?225 BMM?ASSESSMENT Phosphorus,?Calcium ??11/06/2022:?3.8,?8.2 ??10/11/2022:?3.0,?9.0 ??08/21/2022:?4.1,?8.9 ?? PTH,?Intact ??11/06/2022:?323.0 ??10/11/2022:?351.0 ??09/25/2022:?227.0 Vitamin?D?(Calcitriol)?Oral?(mcg) ??11/10/2022:?0.25 ??11/08/2022:?0.25 ??11/06/2022:?0.25 NUTRITION?ASSESSMENT Albumin,?Potassium ??11/06/2022:?3.7,?5.8 ??10/11/2022:?-,?4.0 ??09/25/2022:?3.8,?- ?? eNPCR ??09/25/2022:?1.27 ??08/21/2022:?1.07 ??07/24/2022:?0.84 DIAGNOSIS Chief?Complaint:?N18.6?End?stage?renal?disease Patient?data?updated?11/13/2022?at?1:42?PM Signed?By:?Chris,?Tawana,?EMPLOYMENT CLERK??on?11/13/2022?1:43:46?PM END OF DOCUMENT
--- OUTSIDE RECORDS SUMMARY | 2023-04-03 03:47 | XMS_ITS ---
Author Name Beto Solano Address [address] [place] [address] Phone [phone] Organization [facility] e, NA DOCUMENT DISCLAIMER Multiple document versions may exist, please be sure you review the latest version. The information in the [facility] Progress Note Document represents a providers documented clinical note containing certain health and medical information. It may not contain the complete medical history for the patient and should be independently verified. The represented time in the document is Eastern Time PROVIDER ROUNDING NOTE COMP Provider?Rounding?Note?Comp?-?Vianca?Mars?-?Chart?#: [id number] Method?of?Interaction:?Face?to?face Comments:?doing?well?in?new?care?setting/doing?better?on HD Date?of?Interaction:?02/09/2023 Patient?is?stable Prior?Treatment:?02/07/2023? Dialyzer:?180NRe?Optiflux? Dialysate:?2.0?K,?2.5 Ca,?1.0?Mg,?100?Dextrose?(G2251)? Actual?Time:?04:02?Prescribed?Time:?4:0? Avg?BFR:?420?Avg?DFR:?500? Wt?Gain?(kg):?3.30?EDW?(kg):?76.50? post?Wt?(kg):? ADEQUACY ?spKt/V?eKdrt/V?OLC?(Del)?spKtv?1.83?01/22/23 ???1.57 ?01/22/23 ???1.75?02/07/23 ???1.58?12/25/22 ???1.44 ?12/25/22 ???1.82?02/05/23 ???1.17?12/20/22 ???1.02 ?12/20/22 ???1.47?02/02/23 ?URR?Potassium,?Serum?&#160 ;?Bicarbonate?Creatinine?%?mEq/L?mEq/L?&#16 0;?mg/dL ?79?01/22/23 ?? 5.5?01/29/23 ???20?01/22/23 ???6.63?12/04/22 ???72?12/25/22 ?? 6.0?01/22/23 ???19?12/25/22 ???6.34?11/29/22 ???63?12/20/22 ?? 4.7?12/25/22 ???24?12/04/22 ???7.16?11/20/22 ?-?Adequacy?parameters?reviewed? Adequacy ?-?Adequacy?target?met?Sitting?BP?Pre?Sitting BP?Post?160?/?67??02/07/23?93?/ 51??02/07/23?190?/?82??02/05/23?123?/?47??02/05/23?149?/?64??02/02/23?123?/?63??02/02/23? ?? Blood?Pressure ?-?Blood?pressure?controlled? Prescription?Compliance ?-?Prescription?compliance?acceptable? ?-?Potassium?controlled? ANEMIA ?HGB? Transferrin?Sat.?(Calc) ?Ferritin?g/dL?%?ng/m L?8.7?02/05/23? ??89?01/22/23?1153??&#16 0;?01/22/23? ??8.2?01/29/23? ??43?12/25/22?998??&#160 ;?12/25/22? ??8.5?01/26/23? ??28?11/29/22?926??&#160 ;?11/29/22? Erythropoietin-Stimulating?Agents?(JUANITA)?Administrations ??225?mcg?Mircera?01/26/23 ??0?mcg?Mircera?12/08/22 ??225?mcg?Mircera?11/24/22 IV?Iron?Administrations ??100?mg?Venofer?08/09/22 ??100?mg?Venofer?08/07/22 ??100?mg?Venofer?08/04/22 ?-?Anemia?reviewed? ?-?JUANITA?adjusted?per?protocol? BONE?AND?MINERAL?METABOLISM ?Calcium,?Total?Calcium,?Corrected?Phosphorous? &#160 ;?PTH-Intact,?Plasma?mg/dL?mg/dL?mg/dL?pg/mL?8.8?01/22/23? ??8.6?01/22/23? ??3.0?&#16 0;???01/22/23? ??277?01/22/23? ??9.2?12/25/22? ??9.1?12/25/22? ??2.7?&#16 0;???12/25/22? ??458?12/25/22? ??9.0?12/04/22? ??9.1?12/04/22? ??2.7?&#16 0;???11/29/22? ??270?11/29/22? ?-?Bone?and?mineral?metabolism?parameters?reviewed? ?-?Calcium?controlled? ?-?Phosphorus?controlled? PTH ?-?PTH?within?target? NUTRITION ?Albumin?eNPCR?g/dL?g/kg/day?4.2?01/22/23? ??1.28 ?01/22/23? ??4.1?12/25/22? ??1.25 ?12/25/22? ??3.9?12/04/22? ??0.63 ?12/20/22? ?-?Nutrition?reviewed? Working?with?caregiver?about?protein?supplements. HOME?MEDICATIONS ?acetylcysteine?(acetylcysteine)??600?mg,?oral,?1?capsule twice?a?day ?amlodipine?(amlodipine)??10?mg,?oral,?1?tablet?once a?day ?aspirin?(aspirin)??81?mg,?oral,?1?tablet?once?a day ?Ativan?(lorazepam)??0.5?mg,?oral,?1?tablet?every?six?hours??[for?anxiety] ?Ativan?(lorazepam)??1?mg,?oral,?1?tablet?at?bedti me??[take?before?dialysis?to?lessen?the?anxiety?and&#16 0;agitation?during?dialysis] ?atorvastatin?(atorvastatin)??40?mg,?oral,?1?tablet?at bedtime ?Basaglar?KwikPen?U-100?Insulin?(insulin?glargine)??100&#160 ;unit/mL?(3?mL),?subQ,?25?unit?once?a?day??[20 units?daily] ?benztropine?(benztropine)??0.5?mg,?oral,?1?tablet?at bedtime ?carvedilol?(carvedilol)??12.5?mg,?oral,?1?tablet?twice?a?day ?cyanocobalamin?(vitamin?B-12)?(cyanocobalamin?(vitamin?b-12))?&# 160;500?mcg,?oral,?1?tablet?once?a?day ?Eliquis?(apixaban)??5?mg,?oral,?1/2?tablet?twice? a?day??[TAKE?1?TABLET?BY?MOUTH?TWICE?DAILY] ?fosinopril?(fosinopril)??40?mg,?oral,?1?tablet?twice a?day ?Lamictal?(lamotrigine)??100?mg,?oral,?1?tablet?twice a?day ?meclizine?(meclizine)??12.5?mg,?oral,?1?tablet?every&# 160;night??[every?night?as?needed] ?Miralax?(polyethylene?glycol?3350)??17?gram/dose,?oral,&#16 0;?[take?17?grams?po?daily?as?needed]...?There?are&#160 ;additional?active?home?medications?for?this?patient.?Please&#160 ;view?in?Clinical?Summary VASCULAR?ACCESS ?Type?Exit?Site?&#1 60;??Status?Access?ID?CVCatheter-Tunneled?Neck?& #160;?Active?(In?Use)?[id number]? Access?Flows ??1047mL?per?min?10/04/22 ??1048mL?per?min?08/23/22 ??1240mL?per?min?08/02/22 ??-?Vascular?access?reviewed? Most?Recent?In-center?Antibiotic?Order 12/04/2022?Cefazolin?2000?mg?IV?Post?Dialysis?2X?Week?x ?2?Times,?Clinic?4291-?Entered?By?Manzella[facility]imb EXAM ?-?Vital?signs?reviewed? Pulmonary ?-?LUNGS?-?clear? INTEREST?AND?ELIGIBILITY?(If?changes?are?made,?Please?notify?SW?below) ?Date?of?discussion?from?transplant?assessment:?11/20/2022 ?Patient?already?on?transplant?list??No ?Patient?interested?in?transplantation??Yes ?Has?patient's?physician?identified?one?or?more?exclusions per?the ?Contraindication?list?provider?by?the?transplant?center? ??No ?Patient?referred?for?transplantation??Yes,?per?physician?order ?Transplant?Comments: ???07/29/21:?Pt?reports?being?nicotine?free?for?4&#1 60;months?and?needs?2?more?months?in?order?to?be?l isted?for?transplant;?will?verify?09/30/21:?Per?[facility],?pt?has?never?been?referred ???02/03/22:?Remains?very?upset?she's?not?a?candidate.?11/20/22:?Both?pt?and?caregiver?are?aware?she&#1 60;is?not?a?candidate?for?transplant.? ?Transplant?center/state:?[facility] TO[facility]AC[facility] ??Tobacco?use:?Former?user ??Type:?Cigarettes ??Packs?per?day:? .25 ??Years?smoked:? 10 ??Frequency:?Daily Beto?SARANYA Solano END OF DOCUMENT
--- OUTSIDE RECORDS SUMMARY | 2023-04-03 03:47 | XMS_ITS ---
Author Name Jesse Perezcy Address [address] [place] [address] Phone [phone] Organization [facility] e, NA DOCUMENT DISCLAIMER Multiple document versions may exist, please be sure you review the latest version. The information in the [facility] Progress Note Document represents a providers documented clinical note containing certain health and medical information. It may not contain the complete medical history for the patient and should be independently verified. The represented time in the document is Eastern Time PROVIDER ROUNDING NOTE BASIC Patient:?Vianca?Mars,?1960,?62y,?F Dialysis?Location:?[facility] Attending?Virtualization Consultant:?Beto?Russ Service?Date:?08/30/2022 Service?Provider:?Tawana?Chris,?TRUCK DRIVER I?met?face?to?face?with?the?patient?today. OVERVIEW The?patient?presented?with?ESRD?on?dialysis Primary?cause?of?renal?failure:?Type?2?diabetes?mellitus&#16 0;with?diabetic?chronic?kidney?disease Comments:?08/30/22?-?Upset?and?sad?today?because?of?the& #160;?of?an?uncle.?Stable?treatment. 07/31/22?-?Working?with?PT. 07/26/22?-?Stable?dialysis?treatment?with?no?complaints?or acute?issues.? 07/24?patient?seen?on?dialysis.?Reasonable?intradialytic?weight gain.? Medications?and?labs?reviewed. LAST?HOSPITALIZATION Discharge?Diagnosis:?N39.0?Urinary?tract?infection,?site?not specified Admission?Date?06/18/22 Discharge?Date?06/24/22 DIALYSIS?PRESCRIPTION ??IHD?3x?Week?Start?date:?08/04/22 ??Dialyzer:?180NRe?Optiflux ??BFR:?450 ??DFR:?Manual?500 ??Potassium:?2.0 ??Sodium:?135 ??EDW:?81.5 ??Duration:?4:00 ??Calcium:?2.5 ??Bicarb:?35 ??Rx?updated?on:?08/03/2022 TREATMENT?ASSESSMENT BP?Stand?Pre ??08/28/2022:?152/74 ??08/25/2022:?173/80 ??08/23/2022:?183/79 BP?Sit?Pre ??08/28/2022:?198/75 ??08/25/2022:?197/78 ??08/23/2022:?149/70 BP?Stand?Post ??08/28/2022:?110/45 ??08/25/2022:?167/83 ??08/23/2022:?160/82 BP?Sit?Post ??08/28/2022:?142/67 ??08/25/2022:?169/78 ??08/23/2022:?166/77 Tx?Duration ??08/28/2022:?4:02 ??08/25/2022:?4:04 ??08/23/2022:?4:10 Missed?Treatments 0?-?last?30?days 0?-?last?60?days FLUID?ASSESSMENT EDW?(kg) ??08/28/2022:?81.5 ??08/25/2022:?81.5 ??08/23/2022:?81.5 Weight?Pre?(kg) ??08/28/2022:?85.1 ??08/25/2022:?84.3 ??08/23/2022:?82.9 Weight?Post?(kg) ??08/28/2022:?81.6 ??08/25/2022:?81.5 ??08/23/2022:?81.2 PWV?(kg) ??08/28/2022:?0.1 ??08/25/2022:?0.0 ??08/23/2022:?-0.3 UF?Rate?(mL/kg/hr) ??08/28/2022:?10.6 ??08/25/2022:?8.4 ??08/23/2022:?5 ADEQUACY?ASSESSMENT spKt/V,?URR ??08/21/2022:?1.62,?74.0 ??07/24/2022:?1.84,?78.0 ??06/26/2022:?1.9,?79.0 ACCESS?ASSESSMENT ??Access?Type:?AVGraft ??Access?SubType:?Synthetic?-?[place]?Acuseal ??Access?Status:?Active?(In?Use)?-?08/27/2020 ??Access?Location:?Right?Upper?Arm ??Created:?06/15/2020 Flow ??08/23/2022:?1048 ??08/02/2022:?1240 ??07/31/2022:?>2000 ANEMIA?ASSESSMENT HGB,?TSAT ??08/28/2022:?12.7,?- ??08/21/2022:?13.2,?24.0 ??08/14/2022:?12.6,?- ?? Ferritin ??08/21/2022:?907.0 ??07/24/2022:?811.0 ??06/26/2022:?1337.0 Mircera,?IVP?(mcg) ??08/04/2022:?225 ??07/21/2022:?225 ??07/07/2022:?225 Iron?Sucrose?(Venofer)?(mg) ??08/09/2022:?100 ??08/07/2022:?100 ??08/04/2022:?100 BMM?ASSESSMENT Phosphorus,?Calcium ??08/21/2022:?4.1,?8.9 ??07/24/2022:?2.5,?9.3 ??06/26/2022:?4.2,?8.8 ?? PTH,?Intact ??08/21/2022:?369.0 ??07/24/2022:?231.0 ??06/26/2022:?254.0 Vitamin?D?(Calcitriol)?Oral?(mcg) ??08/28/2022:?0.25 ??08/25/2022:?0.25 ??08/23/2022:?0.25 NUTRITION?ASSESSMENT Albumin,?Potassium ??08/21/2022:?4.4,?4.7 ??07/24/2022:?4.0,?4.2 ??06/26/2022:?3.5,?5.4 ?? eNPCR ??08/21/2022:?1.07 ??07/24/2022:?0.84 ??04/24/2022:?1.27 DIAGNOSIS Chief?Complaint:?N18.6?End?stage?renal?disease Patient?data?updated?08/30/2022?at?1:36?PM Signed?By:?Chris,?Tawana,?TRUCK DRIVER??on?08/30/2022?1:36:54?PM END OF DOCUMENT
--- OUTSIDE RECORDS SUMMARY | 2023-04-03 03:47 | XMS_ITS ---
Author Name Beto Solano Address [address] [place] [address] Phone [phone] Organization [facility] e, NA DOCUMENT DISCLAIMER Multiple document versions may exist, please be sure you review the latest version. The information in the [facility] Progress Note Document represents a providers documented clinical note containing certain health and medical information. It may not contain the complete medical history for the patient and should be independently verified. The represented time in the document is Eastern Time PROVIDER ROUNDING NOTE BASIC Patient:?Vianca?Mars,?1960,?62y,?F Dialysis?Location:?[facility] Attending?Document Management Consultant:?Ronal Service?Date:?02/16/2023 Service?Provider:?Beto?Russ,? I?met?face?to?face?with?the?patient?today. 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 DIALYSIS?PRESCRIPTION ??IHD?3x?Week?Start?date:?01/22/23 ??Dialyzer:?180NRe?Optiflux ??BFR:?450 ??DFR:?Manual?500 ??Potassium:?2.0 ??Sodium:?135 ??EDW:?76.5 ??Duration:?4:00 ??Calcium:?2.5 ??Bicarb:?35 ??Rx?updated?on:?01/22/2023 TREATMENT?ASSESSMENT BP?Stand?Pre ??02/14/2023:?193/85 ??02/12/2023:?145/71 BP?Sit?Pre ??02/14/2023:?158/57 ??02/12/2023:?186/83 ??02/09/2023:?143/70 BP?Stand?Post ??02/14/2023:?107/51 ??02/12/2023:?139/72 ??02/09/2023:?119/34 BP?Sit?Post ??02/14/2023:?114/66 ??02/12/2023:?156/76 ??02/09/2023:?132/59 Tx?Duration ??02/14/2023:?4:07 ??02/12/2023:?4:03 ??02/09/2023:?3:50 Missed?Treatments 0?-?last?30?days 0?-?last?60?days FLUID?ASSESSMENT EDW?(kg) ??02/14/2023:?76.5 ??02/12/2023:?76.5 ??02/09/2023:?76.5 Weight?Pre?(kg) ??02/14/2023:?80.9 ??02/12/2023:?81.6 ??02/09/2023:?80.0 Weight?Post?(kg) ??02/14/2023:?77.7 ??02/12/2023:?78.2 ??02/09/2023:?76.9 PWV?(kg) ??02/14/2023:?1.2 ??02/12/2023:?1.7 ??02/09/2023:?0.4 UF?Rate?(mL/kg/hr) ??02/14/2023:?10 ??02/12/2023:?10.7 ??02/09/2023:?10.5 ADEQUACY?ASSESSMENT spKt/V,?URR ??01/22/2023:?1.83,?79.0 ??12/25/2022:?1.58,?72.0 ??12/20/2022:?1.17,?63.0 ACCESS?ASSESSMENT ??Access?Type:?CVCatheter ??Access?SubType:?Tunneled ??Access?Status:?Active?(In?Use)?-?11/06/2022 ??Access?Location:?Neck ??Placed:?11/06/2022 ANEMIA?ASSESSMENT HGB ??02/12/2023:?9.4 ??02/05/2023:?8.7 ??01/29/2023:?8.2 ?? Ferritin ??01/22/2023:?1153.0 ??12/25/2022:?998.0 ??11/29/2022:?926.0 Mircera,?IVP?(mcg) ??02/09/2023:?225 ??01/26/2023:?225 ??11/24/2022:?225 BMM?ASSESSMENT Phosphorus,?Calcium ??01/22/2023:?3.0,?8.8 ??12/25/2022:?2.7,?9.2 ??12/04/2022:?-,?9.0 ?? PTH,?Intact ??01/22/2023:?277.0 ??12/25/2022:?458.0 ??11/29/2022:?270.0 Vitamin?D?(Calcitriol)?Oral?(mcg) ??02/14/2023:?0.25 ??02/12/2023:?0.25 ??02/09/2023:?0.25 NUTRITION?ASSESSMENT Albumin,?Potassium ??01/29/2023:?-,?5.5 ??01/22/2023:?4.2,?6.0 ??12/25/2022:?4.1,?4.7 ?? eNPCR ??01/22/2023:?1.28 ??12/25/2022:?1.25 ??12/20/2022:?0.63 Patient?data?updated?02/16/2023?at?12:40?PM Signed?By:?Russ,?Beto,???on?02/16/2023?12:40:41 PM END OF DOCUMENT
--- OUTSIDE RECORDS SUMMARY | 2023-04-03 03:47 | XMS_ITS ---
Author Name ChrisJessecy Address [address] [place] [address] Phone [phone] Organization [facility] e, NA DOCUMENT DISCLAIMER Multiple document versions may exist, please be sure you review the latest version. The information in the [facility] Progress Note Document represents a providers documented clinical note containing certain health and medical information. It may not contain the complete medical history for the patient and should be independently verified. The represented time in the document is Eastern Time PROVIDER ROUNDING NOTE BASIC Patient:?Vianca?Mars,?1960,?62y,?F Dialysis?Location:?[facility] Attending?Product Development Consultant:?Beto?Russ Service?Date:?02/02/2023 Service?Provider:?Tawana?Chris,?OPERATIONS SUPPORT COORDINATOR I?met?face?to?face?with?the?patient?today. OVERVIEW The?patient?presented?with?ESRD?on?dialysis Primary?cause?of?renal?failure:?Type?2?diabetes?mellitus&#16 0;with?diabetic?chronic?kidney?disease Comments:?02/02/23?-?Stable?treatment 01/29/23?-?Upset?with?her?new?living?situation,?she?thou ght?it?would?be?temporary?and?learned?that?it?is?p ermanent,?missing?her?previous?caregivers.?Stable?treatment?today ?with?no?acute?issues.?? 01/17?now?in?new?home?/settling?in. 01/08?moved?into?new?living?situation.?Overall?doing?ok Medications?and?labs?reviewed. 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 Admission?Date?11/30/22 Discharge?Date?12/01/22 DIALYSIS?PRESCRIPTION ??IHD?3x?Week?Start?date:?01/22/23 ??Dialyzer:?180NRe?Optiflux ??BFR:?450 ??DFR:?Manual?500 ??Potassium:?2.0 ??Sodium:?135 ??EDW:?76.5 ??Duration:?4:00 ??Calcium:?2.5 ??Bicarb:?35 ??Rx?updated?on:?01/22/2023 TREATMENT?ASSESSMENT BP?Stand?Pre ??01/31/2023:?155/75 ??01/29/2023:?146/69 ??01/26/2023:?155/76 BP?Sit?Pre ??01/31/2023:?165/72 ??01/29/2023:?158/96 ??01/26/2023:?184/78 BP?Stand?Post ??01/31/2023:?139/62 ??01/29/2023:?130/86 ??01/26/2023:?120/59 BP?Sit?Post ??01/31/2023:?174/61 ??01/29/2023:?119/75 ??01/26/2023:?129/56 Tx?Duration ??01/31/2023:?4:10 ??01/29/2023:?4:00 ??01/26/2023:?4:01 Missed?Treatments 0?-?last?30?days 0?-?last?60?days FLUID?ASSESSMENT EDW?(kg) ??01/31/2023:?76.5 ??01/29/2023:?76.5 ??01/26/2023:?76.5 Weight?Pre?(kg) ??01/31/2023:?79.3 ??01/29/2023:?81.3 ??01/26/2023:?79.8 Weight?Post?(kg) ??01/31/2023:?76.7 ??01/29/2023:?77.8 ??01/26/2023:?76.6 PWV?(kg) ??01/31/2023:?0.2 ??01/29/2023:?1.3 ??01/26/2023:?0.1 UF?Rate?(mL/kg/hr) ??01/31/2023:?8.1 ??01/29/2023:?11.2 ??01/26/2023:?10.4 ADEQUACY?ASSESSMENT spKt/V,?URR ??01/22/2023:?1.83,?79.0 ??12/25/2022:?1.58,?72.0 ??12/20/2022:?1.17,?63.0 ACCESS?ASSESSMENT ??Access?Type:?CVCatheter ??Access?SubType:?Tunneled ??Access?Status:?Active?(In?Use)?-?11/06/2022 ??Access?Location:?Neck ??Placed:?11/06/2022 ANEMIA?ASSESSMENT HGB,?TSAT ??01/29/2023:?8.2,?- ??01/26/2023:?8.5,?- ??01/22/2023:?8.8,?89.0 ?? Ferritin ??01/22/2023:?1153.0 ??12/25/2022:?998.0 ??11/29/2022:?926.0 Mircera,?IVP?(mcg) ??01/26/2023:?225 ??11/24/2022:?225 ??11/10/2022:?225 BMM?ASSESSMENT Comments:?01/17?hold?renvela Phosphorus,?Calcium ??01/22/2023:?3.0,?8.8 ??12/25/2022:?2.7,?9.2 ??12/04/2022:?-,?9.0 ?? PTH,?Intact ??01/22/2023:?277.0 ??12/25/2022:?458.0 ??11/29/2022:?270.0 Vitamin?D?(Calcitriol)?Oral?(mcg) ??01/31/2023:?0.25 ??01/29/2023:?0.25 ??01/26/2023:?0.25 NUTRITION?ASSESSMENT Albumin,?Potassium ??01/29/2023:?-,?5.5 ??01/22/2023:?4.2,?6.0 ??12/25/2022:?4.1,?4.7 ?? eNPCR ??01/22/2023:?1.28 ??12/25/2022:?1.25 ??12/20/2022:?0.63 DIAGNOSIS Chief?Complaint:?N18.6?End?stage?renal?disease Patient?data?updated?02/02/2023?at?2:56?PM Signed?By:?Chris,?Tawana,?OPERATIONS SUPPORT COORDINATOR??on?02/02/2023?2:56:29?PM END OF DOCUMENT
--- OUTSIDE RECORDS SUMMARY | 2023-04-03 03:47 | XMS_ITS ---
Author Name Beto Solano Address [address] [place] [address] Phone [phone] Organization [facility] e, NA DOCUMENT DISCLAIMER Multiple document versions may exist, please be sure you review the latest version. The information in the [facility] Progress Note Document represents a providers documented clinical note containing certain health and medical information. It may not contain the complete medical history for the patient and should be independently verified. The represented time in the document is Eastern Time PROVIDER ROUNDING NOTE COMPREHENSIVE Patient:?Vianca?Mars,?1960,?62y,?F Dialysis?Location:?[facility] Attending?Inside Sales Recruiter:?Beto?Russ Service?Date:?11/15/2022 Service?Provider:?Beto?Russ,? I?met?face?to?face?with?the?patient?today. 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 out?her?catheter?in?her?sleep.?New?cath?placed?at? [facility] [place] [place]?this?am.?Running?well?on?dialysis.?Stable?treatment.&#1 60;Wound?vac?remains?in?place?on?old?AVG?site,?pt?states?it?is?healing?well.? 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 ?Now?on?cefazolin?IV.?Will?check?on?duration.?12/08&#160 ;stop?date?listed?on?d/c?summary Medications?and?labs?reviewed. LAST?HOSPITALIZATION Discharge?Diagnosis:?L08.9?Local?infection?of?the?skin?and&# 160;subcutaneous?tissue,?unspecified Admission?Date?10/25/22 Discharge?Date?11/04/22 DIALYSIS?PRESCRIPTION ??IHD?3x?Week?Start?date:?08/04/22 ??Dialyzer:?180NRe?Optiflux ??BFR:?450 ??DFR:?Manual?500 ??Potassium:?2.0 ??Sodium:?135 ??EDW:?81.5 ??Duration:?4:00 ??Calcium:?2.5 ??Bicarb:?35 ??Rx?updated?on:?08/03/2022 TREATMENT?ASSESSMENT Blood?pressure?controlled.?No?changes?indicated.? BP?Stand?Pre ??11/13/2022:?195/89 ??11/08/2022:?190/102 BP?Sit?Pre ??11/13/2022:?168/87 ??11/10/2022:?174/90 ??11/08/2022:?195/98 BP?Stand?Post ??11/13/2022:?183/90 ??11/10/2022:?132/105 ??11/08/2022:?159/88 BP?Sit?Post ??11/13/2022:?185/79 ??11/10/2022:?172/92 ??11/08/2022:?111/93 Tx?Duration ??11/13/2022:?3:38 ??11/10/2022:?4:00 ??11/08/2022:?4:02 Missed?Treatments 0?-?last?30?days 0?-?last?60?days FLUID?ASSESSMENT Fluid?status?acceptable.?Interdialytic?weight?gain?acceptable.?No ?changes?indicated.? EDW?(kg) ??11/13/2022:?81.5 ??11/10/2022:?81.5 ??11/08/2022:?81.5 Weight?Pre?(kg) ??11/13/2022:?82.5 ??11/10/2022:?84.9 ??11/08/2022:?83.9 Weight?Post?(kg) ??11/13/2022:?81.9 ??11/10/2022:?81.5 ??11/08/2022:?82.4 PWV?(kg) ??11/13/2022:?0.4 ??11/10/2022:?0.0 ??11/08/2022:?0.9 UF?Rate?(mL/kg/hr) ??11/13/2022:?2 ??11/10/2022:?10.4 ??11/08/2022:?4.5 ADEQUACY?ASSESSMENT Adequacy?target?met.?Prescription?compliance?acceptable.?No?changes?indicated.? spKt/V,?URR ??09/25/2022:?1.93,?80.0 ??08/21/2022:?1.62,?74.0 ??07/24/2022:?1.84,?78.0 ACCESS?ASSESSMENT ??Access?Type:?AVGraft ??Access?SubType:?Synthetic?-?[place]?Acuseal ??Access?Status:?Active?(In?Use)?-?08/27/2020 ??Access?Location:?Right?Upper?Arm ??Created:?06/15/2020 Flow ??10/04/2022:?1047 ??08/23/2022:?1048 ??08/02/2022:?1240 Comments:?11/15/22?-?AVG?became?infection?and?has?been?e xcised.?She?is?now?a?perm?catheter?per?vascular.?Being& #160;treated?with?life?long?antibiotics.? Vascular?access?reviewed.?Current?access?is?permanent?and?functioning?well. ANEMIA?ASSESSMENT HGB?below?goal.?Iron?parameters?acceptable.?JUANITA?dose?adequat e.?No?changes?indicated.? HGB,?TSAT ??11/06/2022:?9.4,?26.0 ??10/16/2022:?6.8,?- ??10/11/2022:?8.5,?- ?? Ferritin ??11/06/2022:?1000.0 ??10/11/2022:?1302.0 ??08/21/2022:?907.0 Mircera,?IVP?(mcg) ??11/10/2022:?225 ??10/18/2022:?200 ??10/13/2022:?225 BMM?ASSESSMENT PTH?controlled.?Calcium?controlled.?Phosphorus?controlled.?No?dom nges?indicated.? Phosphorus,?Calcium ??11/06/2022:?3.8,?8.2 ??10/11/2022:?3.0,?9.0 ??08/21/2022:?4.1,?8.9 ?? PTH,?Intact ??11/06/2022:?323.0 ??10/11/2022:?351.0 ??09/25/2022:?227.0 Vitamin?D?(Calcitriol)?Oral?(mcg) ??11/13/2022:?0.25 ??11/10/2022:?0.25 ??11/08/2022:?0.25 NUTRITION?ASSESSMENT Potassium?above?goal.?Albumin?controlled.?No?changes?indicated. Albumin,?Potassium ??11/06/2022:?3.7,?5.8 ??10/11/2022:?-,?4.0 ??09/25/2022:?3.8,?- ?? eNPCR ??09/25/2022:?1.27 ??08/21/2022:?1.07 ??07/24/2022:?0.84 DIAGNOSIS Chief?Complaint:?N18.6?End?stage?renal?disease Patient?data?updated?11/15/2022?at?10:50?AM Signed?By:?Russ,?Beto,???on?11/15/2022?10:54:25 AM END OF DOCUMENT
--- OUTSIDE RECORDS SUMMARY | 2023-04-03 03:47 | XMS_ITS ---
Author Name Beto Solano Address [address] [place] [address] Phone [phone] Organization [facility] e, NA DOCUMENT DISCLAIMER Multiple document versions may exist, please be sure you review the latest version. The information in the [facility] Progress Note Document represents a providers documented clinical note containing certain health and medical information. It may not contain the complete medical history for the patient and should be independently verified. The represented time in the document is Eastern Time PROVIDER ROUNDING NOTE BASIC Patient:?Vianca?Mars,?1960,?61y,?F Dialysis?Location:?[facility] Attending?Handling Tech:?Beto?Russ Service?Date:?06/28/2022 Service?Provider:?Beto?Russ,? I?met?face?to?face?with?the?patient?today. 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 Medications?and?labs?reviewed. DIALYSIS?PRESCRIPTION ??IHD?3x?Week?Start?date:?05/01/22 ??Dialyzer:?180NRe?Optiflux ??BFR:?450 ??DFR:?Manual?500 ??Potassium:?2.0 ??Sodium:?135 ??EDW:?83 ??Duration:?4:00 ??Calcium:?2.5 ??Bicarb:?35 ??Rx?updated?on:?05/01/2022 TREATMENT?ASSESSMENT BP?Stand?Pre ??06/26/2022:?108/46 BP?Sit?Pre ??06/26/2022:?137/62 ??06/16/2022:?144/124 ??06/14/2022:?161/90 BP?Stand?Post ??06/26/2022:?121/60 ??06/14/2022:?178/85 BP?Sit?Post ??06/26/2022:?166/73 ??06/16/2022:?163/90 ??06/14/2022:?137/41 Tx?Duration ??06/26/2022:?3:58 ??06/16/2022:?3:23 ??06/14/2022:?3:50 Missed?Treatments 0?-?last?30?days 0?-?last?60?days FLUID?ASSESSMENT EDW?(kg) ??06/26/2022:?83.0 ??06/16/2022:?83.0 ??06/14/2022:?83.0 Weight?Pre?(kg) ??06/26/2022:?83.7 ??06/16/2022:?83.7 ??06/14/2022:?84.1 Weight?Post?(kg) ??06/26/2022:?80.6 ??06/16/2022:?80.1 ??06/14/2022:?83.1 PWV?(kg) ??06/26/2022:?-2.4 ??06/16/2022:?-2.9 ??06/14/2022:?0.1 UF?Rate?(mL/kg/hr) ??06/26/2022:?9.7 ??06/16/2022:?13.3 ??06/14/2022:?3.1 ADEQUACY?ASSESSMENT spKt/V,?URR ??06/07/2022:?1.86,?80.0 ??04/24/2022:?2.04,?82.0 ??04/03/2022:?2.03,?82.0 ACCESS?ASSESSMENT ??Access?Type:?AVGraft ??Access?SubType:?Synthetic?-?[place]?Acuseal ??Access?Status:?Active?(In?Use)?-?08/27/2020 ??Access?Location:?Right?Upper?Arm ??Created:?06/15/2020 Flow ??05/31/2022:?877 ??04/26/2022:?634 ??04/05/2022:?1015 ANEMIA?ASSESSMENT HGB,?TSAT ??06/12/2022:?11.5,?- ??06/07/2022:?11.6,?23.0 ??05/22/2022:?10.2,?- ?? Ferritin ??06/07/2022:?1042.0 ??04/24/2022:?1376.0 ??04/03/2022:?1041.0 Mircera,?IVP?(mcg) ??06/09/2022:?225 ??05/26/2022:?225 ??05/12/2022:?225 BMM?ASSESSMENT Phosphorus,?Calcium ??06/07/2022:?3.4,?9.4 ??04/24/2022:?3.1,?9.1 ??04/03/2022:?3.1,?8.9 ?? PTH,?Intact ??06/07/2022:?146.0 ??04/24/2022:?285.0 ??04/03/2022:?387.0 Vitamin?D?(Calcitriol)?Oral?(mcg) ??06/26/2022:?0.25 ??06/16/2022:?0.25 ??06/14/2022:?0.25 NUTRITION?ASSESSMENT Albumin,?Potassium ??06/07/2022:?3.8,?4.9 ??04/24/2022:?4.1,?4.8 ??04/03/2022:?4.2,?4.6 ?? eNPCR ??04/24/2022:?1.27 ??04/03/2022:?0.99 ??03/06/2022:?1.43 Patient?data?updated?06/28/2022?at?9:41?AM Signed?By:?Russ,?Beto,???on?06/28/2022?9:45:38?AM END OF DOCUMENT
--- OUTSIDE RECORDS SUMMARY | 2023-04-03 03:48 | XMS_ITS ---
Author Name Beto Solano Address [address] [place] [address] Phone [phone] Organization [facility] e, NA DOCUMENT DISCLAIMER The information in the [facility] Dialysis Provider Note Document represents a providersdocumented clinical note containing certain health and medical information. It may not contain the complete medical history for the patient and should be independently verified. The represented time in the document is Eastern Time PROVIDER ROUNDING NOTE COMPREHENSIVE Patient:?Vianca?Mars,?1960,?61y,?F Dialysis?Location:?[facility] Attending?Sales Development Consultant:?Beto?Russ Service?Date:?05/17/2022 Service?Provider:?Beto?Russ,? I?met?face?to?face?with?the?patient?today. 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 LAST?HOSPITALIZATION Discharge?Diagnosis:?J96.91?Respiratory?failure,?unspecified?with hypoxia J90?Pleural?effusion,?not?elsewhere?classified I16.9?Hypertensive?crisis,?unspecified Admission?Date?05/23/21 Discharge?Date?05/26/21 DIALYSIS?PRESCRIPTION ??IHD?3x?Week?Start?date:?05/01/22 ??Dialyzer:?180NRe?Optiflux ??BFR:?450 ??DFR:?Manual?500 ??Potassium:?2.0 ??Sodium:?135 ??EDW:?83 ??Duration:?4:00 ??Calcium:?2.5 ??Bicarb:?35 ??Rx?updated?on:?05/01/2022 TREATMENT?ASSESSMENT Blood?pressure?controlled.?No?changes?indicated.? BP?Sit?Pre ??05/15/2022:?125/79 ??05/12/2022:?150/73 ??05/10/2022:?151/107 BP?Sit?Post ??05/15/2022:?181/83 ??05/12/2022:?119/27 ??05/10/2022:?108/72 Tx?Duration ??05/15/2022:?4:05 ??05/12/2022:?4:02 ??05/10/2022:?4:04 Missed?Treatments 0?-?last?30?days 0?-?last?60?days FLUID?ASSESSMENT Fluid?status?acceptable.?Interdialytic?weight?gain?acceptable.? EDW?(kg) ??05/15/2022:?83.0 ??05/12/2022:?83.0 ??05/10/2022:?83.0 Weight?Pre?(kg) ??05/15/2022:?84.2 ??05/12/2022:?84.3 ??05/10/2022:?83.7 Weight?Post?(kg) ??05/15/2022:?82.8 ??05/12/2022:?82.8 ??05/10/2022:?82.6 PWV?(kg) ??05/15/2022:?-0.2 ??05/12/2022:?-0.2 ??05/10/2022:?-0.4 UF?Rate?(mL/kg/hr) ??05/15/2022:?4.1 ??05/12/2022:?4.5 ??05/10/2022:?3.3 ADEQUACY?ASSESSMENT Adequacy?target?met.?Prescription?compliance?acceptable.? spKt/V,?URR ??04/24/2022:?2.04,?82.0 ??04/03/2022:?2.03,?82.0 ??03/06/2022:?1.76,?77.0 ACCESS?ASSESSMENT ??Access?Type:?AVGraft ??Access?SubType:?Synthetic?-?[place]?Acuseal ??Access?Status:?Active?(In?Use)?-?08/27/2020 ??Access?Location:?Right?Upper?Arm ??Created:?06/15/2020 Flow ??04/26/2022:?634 ??04/05/2022:?1015 ??03/22/2022:?932 Comments:?05/17?access?flows?down/will?trends?and?refer?if necessary Vascular?access?reviewed. ANEMIA?ASSESSMENT JUANITA?adjusted?per?protocol.?Anemia?reviewed.? HGB ??05/15/2022:?9.8 ??05/08/2022:?10.3 ??05/03/2022:?6.8 ?? Ferritin ??04/24/2022:?1376.0 ??04/03/2022:?1041.0 ??03/06/2022:?1404.0 Mircera,?IVP?(mcg) ??05/12/2022:?225 ??04/26/2022:?225 ??02/17/2022:?75 Iron?Sucrose?(Venofer)?(mg) ??02/24/2022:?100 ??02/22/2022:?100 ??02/20/2022:?100 BMM?ASSESSMENT PTH?within?target.?Bone?and?mineral?metabolism?parameters?re viewed.?Calcium?controlled.?Phosphorus?controlled.? Phosphorus,?Calcium ??04/24/2022:?3.1,?9.1 ??04/03/2022:?3.1,?8.9 ??03/06/2022:?4.6,?9.1 ?? PTH,?Intact ??04/24/2022:?285.0 ??04/03/2022:?387.0 ??03/06/2022:?352.0 Vitamin?D?(Calcitriol)?Oral?(mcg) ??05/15/2022:?0.25 ??05/12/2022:?0.25 ??05/10/2022:?0.25 NUTRITION?ASSESSMENT Nutrition?reviewed.?Potassium?controlled.? Albumin,?Potassium ??04/24/2022:?4.1,?4.8 ??04/03/2022:?4.2,?4.6 ??03/06/2022:?4.2,?5.5 ?? eNPCR ??04/24/2022:?1.27 ??04/03/2022:?0.99 ??03/06/2022:?1.43 PHYSICAL?EXAM Exam?Performed.?Vital?Signs?Reviewed.?Lungs?-?Clear. DIAGNOSIS Chief?Complaint:?N18.6?End?stage?renal?disease Patient?data?updated?05/17/2022?at?10:58?AM Signed?By:?Russ,?Beto???on?05/17/2022?11:00:27 AM END OF DOCUMENT
--- OUTSIDE RECORDS SUMMARY | 2023-04-03 03:48 | XMS_ITS ---
Author Name ChrisJessecy Address [address] [place], [place] [address] Phone [phone] Organization [facility] e, NA DOCUMENT DISCLAIMER Multiple document versions may exist, please be sure you review the latest version. The information in the [facility] Progress Note Document represents a providers documented clinical note containing certain health and medical information. It may not contain the complete medical history for the patient and should be independently verified. The represented time in the document is Eastern Time PROVIDER ROUNDING NOTE BASIC Patient:?Vianca?Mars,?1960,?62y,?F Dialysis?Location:?[facility] Attending?Supervisor Research [employer]:?Beto?Russ Service?Date:?03/21/2023 Service?Provider:?Tawana?Chris,?[employer]ERR[employer] MA[employer] I?met?face?to?face?with?the?patient?today. OVERVIEW The?patient?presented?with?ESRD?on?dialysis Primary?cause?of?renal?failure:?Type?2?diabetes?mellitus&#16 0;with?diabetic?chronic?kidney?disease Comments:?03/16/23?-?Became?hypotensive?and?unresponsive?near&#16 0;end?of?treatment?requiring?extra?rinseback.?Will?increase? EDW?to?what?she?leaves?at?today.?Staff?will?also?update?her?med?list.? 03/12?Begining?to?see?high?IDWG/will?need?to?discuss?with?phlebotomy director/lawn care professional Medications?and?labs?reviewed. 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 Admission?Date?11/30/22 Discharge?Date?12/01/22 DIALYSIS?PRESCRIPTION ??IHD?3x?Week?Start?date:?03/21/23 ??Dialyzer:?180NRe?Optiflux ??BFR:?450 ??DFR:?Manual?500 ??Potassium:?2.0 ??Sodium:?135 ??EDW:?78.5 ??Duration:?4:00 ??Calcium:?2.5 ??Bicarb:?35 ??Rx?updated?on:?03/19/2023 TREATMENT?ASSESSMENT BP?Stand?Pre ??03/19/2023:?164/76 ??03/16/2023:?189/63 BP?Sit?Pre ??03/19/2023:?189/76 ??03/16/2023:? ??03/14/2023:?139/88 BP?Stand?Post ??03/19/2023:?147/43 ??03/16/2023:?110/89 BP?Sit?Post ??03/19/2023:?136/69 ??03/16/2023:?138/71 ??03/14/2023:?103/47 Tx?Duration ??03/19/2023:?3:55 ??03/16/2023:?3:39 ??03/14/2023:?3:54 Missed?Treatments 0?-?last?30?days 0?-?last?60?days FLUID?ASSESSMENT EDW?(kg) ??03/19/2023:?78.0 ??03/16/2023:?77.5 ??03/14/2023:?77.5 Weight?Pre?(kg) ??03/19/2023:?82.4 ??03/16/2023:?81.3 ??03/14/2023:?81.5 Weight?Post?(kg) ??03/19/2023:?78.8 ??03/16/2023:?78.2 ??03/14/2023:?77.9 PWV?(kg) ??03/19/2023:?0.8 ??03/16/2023:?0.7 ??03/14/2023:?0.4 UF?Rate?(mL/kg/hr) ??03/19/2023:?11.7 ??03/16/2023:?10.9 ??03/14/2023:?11.8 ADEQUACY?ASSESSMENT spKt/V,?URR ??03/07/2023:?1.54,?72.0 ??02/26/2023:?3.78,?94.0 ??01/22/2023:?1.83,?79.0 ACCESS?ASSESSMENT ??Access?Type:?CVCatheter ??Access?SubType:?Tunneled ??Access?Status:?Active?(In?Use)?-?11/06/2022 ??Access?Location:?Neck ??Placed:?11/06/2022 ANEMIA?ASSESSMENT HGB,?TSAT ??03/05/2023:?11.7,?- ??02/26/2023:?11.4,?31.0 ??02/19/2023:?10.4,?- ?? Ferritin ??02/26/2023:?613.0 ??01/22/2023:?1153.0 ??12/25/2022:?998.0 Mircera,?IVP?(mcg) ??02/23/2023:?225 ??02/09/2023:?225 ??01/26/2023:?225 BMM?ASSESSMENT Phosphorus,?Calcium ??02/26/2023:?3.1,?9.0 ??01/22/2023:?3.0,?8.8 ??12/25/2022:?2.7,?9.2 ?? PTH,?Intact ??02/26/2023:?318.0 ??01/22/2023:?277.0 ??12/25/2022:?458.0 Vitamin?D?(Calcitriol)?Oral?(mcg) ??03/19/2023:?0.25 ??03/16/2023:?0.25 ??03/14/2023:?0.25 NUTRITION?ASSESSMENT Albumin,?Potassium ??02/26/2023:?4.1,?5.7 ??01/29/2023:?-,?5.5 ??01/22/2023:?4.2,?6.0 ?? eNPCR ??03/07/2023:?1.08 ??02/26/2023:?1.76 ??01/22/2023:?1.28 DIAGNOSIS Chief?Complaint:?N18.6?End?stage?renal?disease Patient?data?updated?03/21/2023?at?10:01?AM Signed?By:?Chris,?Tawana,?CAR FERRY MASTER??on?03/21/2023?10:01:55 AM END OF DOCUMENT
--- OUTSIDE RECORDS SUMMARY | 2023-04-03 03:48 | XMS_ITS ---
Author Name Jesse Perezcy Address [address] [place] [id number] Phone [phone] Organization [facility] e, NA DOCUMENT DISCLAIMER Multiple document versions may exist, please be sure you review the latest version. The information in the [facility] Progress Note Document represents a providers documented clinical note containing certain health and medical information. It may not contain the complete medical history for the patient and should be independently verified. The represented time in the document is Eastern Time PROVIDER ROUNDING NOTE BASIC Patient:?Vianca?Mars,?1960,?62y,?F Dialysis?Location:?[facility] Attending?Color Developer:?Beto?Russ Service?Date:?09/04/2022 Service?Provider:?Tawana?Chris,?THEOLOGY PROFESSOR I?met?face?to?face?with?the?patient?today. OVERVIEW The?patient?presented?with?ESRD?on?dialysis Primary?cause?of?renal?failure:?Type?2?diabetes?mellitus&#16 0;with?diabetic?chronic?kidney?disease Comments:?08/30/22?-?Upset?and?sad?today?because?of?the& #160;?of?an?uncle.?Stable?treatment. 07/31/22?-?Working?with?PT. 07/26/22?-?Stable?dialysis?treatment?with?no?complaints?or acute?issues.? 07/24?patient?seen?on?dialysis.?Reasonable?intradialytic?weight gain.? Medications?and?labs?reviewed. LAST?HOSPITALIZATION Discharge?Diagnosis:?N39.0?Urinary?tract?infection,?site?not specified Admission?Date?06/18/22 Discharge?Date?06/24/22 DIALYSIS?PRESCRIPTION ??IHD?3x?Week?Start?date:?08/04/22 ??Dialyzer:?180NRe?Optiflux ??BFR:?450 ??DFR:?Manual?500 ??Potassium:?2.0 ??Sodium:?135 ??EDW:?81.5 ??Duration:?4:00 ??Calcium:?2.5 ??Bicarb:?35 ??Rx?updated?on:?08/03/2022 TREATMENT?ASSESSMENT BP?Stand?Pre ??09/01/2022:?153/71 ??08/28/2022:?152/74 BP?Sit?Pre ??09/01/2022:?208/91 ??08/30/2022:?139/73 ??08/28/2022:?198/75 BP?Stand?Post ??09/01/2022:?150/77 ??08/30/2022:?167/74 ??08/28/2022:?110/45 BP?Sit?Post ??09/01/2022:?149/81 ??08/30/2022:?149/70 ??08/28/2022:?142/67 Tx?Duration ??09/01/2022:?4:01 ??08/30/2022:?4:02 ??08/28/2022:?4:02 Missed?Treatments 0?-?last?30?days 0?-?last?60?days FLUID?ASSESSMENT EDW?(kg) ??09/01/2022:?81.5 ??08/30/2022:?81.5 ??08/28/2022:?81.5 Weight?Pre?(kg) ??09/01/2022:?84.3 ??08/30/2022:?83.6 ??08/28/2022:?85.1 Weight?Post?(kg) ??09/01/2022:?81.6 ??08/30/2022:?81.5 ??08/28/2022:?81.6 PWV?(kg) ??09/01/2022:?0.1 ??08/30/2022:?0.0 ??08/28/2022:?0.1 UF?Rate?(mL/kg/hr) ??09/01/2022:?8.2 ??08/30/2022:?6.4 ??08/28/2022:?10.6 ADEQUACY?ASSESSMENT spKt/V,?URR ??08/21/2022:?1.62,?74.0 ??07/24/2022:?1.84,?78.0 ??06/26/2022:?1.9,?79.0 ACCESS?ASSESSMENT ??Access?Type:?AVGraft ??Access?SubType:?Synthetic?-?[place]?Acuseal ??Access?Status:?Active?(In?Use)?-?08/27/2020 ??Access?Location:?Right?Upper?Arm ??Created:?06/15/2020 Flow ??08/23/2022:?1048 ??08/02/2022:?1240 ??07/31/2022:?>2000 ANEMIA?ASSESSMENT HGB,?TSAT ??08/28/2022:?12.7,?- ??08/21/2022:?13.2,?24.0 ??08/14/2022:?12.6,?- ?? Ferritin ??08/21/2022:?907.0 ??07/24/2022:?811.0 ??06/26/2022:?1337.0 Mircera,?IVP?(mcg) ??08/04/2022:?225 ??07/21/2022:?225 ??07/07/2022:?225 Iron?Sucrose?(Venofer)?(mg) ??08/09/2022:?100 ??08/07/2022:?100 ??08/04/2022:?100 BMM?ASSESSMENT Phosphorus,?Calcium ??08/21/2022:?4.1,?8.9 ??07/24/2022:?2.5,?9.3 ??06/26/2022:?4.2,?8.8 ?? PTH,?Intact ??08/21/2022:?369.0 ??07/24/2022:?231.0 ??06/26/2022:?254.0 Vitamin?D?(Calcitriol)?Oral?(mcg) ??09/01/2022:?0.25 ??08/30/2022:?0.25 ??08/28/2022:?0.25 NUTRITION?ASSESSMENT Albumin,?Potassium ??08/21/2022:?4.4,?4.7 ??07/24/2022:?4.0,?4.2 ??06/26/2022:?3.5,?5.4 ?? eNPCR ??08/21/2022:?1.07 ??07/24/2022:?0.84 ??04/24/2022:?1.27 DIAGNOSIS Chief?Complaint:?N18.6?End?stage?renal?disease Patient?data?updated?09/04/2022?at?11:44?AM Signed?By:?Chris,?Tawana,?THEOLOGY PROFESSOR??on?09/04/2022?11:44:48 AM END OF DOCUMENT
--- OUTSIDE RECORDS SUMMARY | 2023-04-03 03:48 | XMS_ITS ---
Author Name Jesse Perezcy Address [address] [place] [id number] Phone [phone] Organization [facility] e, NA DOCUMENT DISCLAIMER Multiple document versions may exist, please be sure you review the latest version. The information in the [facility] Progress Note Document represents a providers documented clinical note containing certain health and medical information. It may not contain the complete medical history for the patient and should be independently verified. The represented time in the document is Eastern Time PROVIDER ROUNDING NOTE BASIC Patient:?Vianca?Mars,?1960,?62y,?F Dialysis?Location:?[facility] Attending?Saloon Keeper:?Beto?Russ Service?Date:?12/11/2022 Service?Provider:?Tawana?Chris,?INFECTION CONTROL NURSE I?met?face?to?face?with?the?patient?today. OVERVIEW The?patient?presented?with?ESRD?on?dialysis Primary?cause?of?renal?failure:?Type?2?diabetes?mellitus&#16 0;with?diabetic?chronic?kidney?disease Comments:?12/11/22?-?Stable?treatment.? 11/29/22?-?Stable?treatment?with?no?acute?issues.?States? she?has?a?seizure?over?the?weekend. 11/22?might?have?to?move?from?current?home?situation.?Will?let?social?worker?know? Medications?and?labs?reviewed. 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 Admission?Date?11/30/22 Discharge?Date?12/01/22 DIALYSIS?PRESCRIPTION ??IHD?3x?Week?Start?date:?12/11/22 ??Dialyzer:?180NRe?Optiflux ??BFR:?450 ??DFR:?Manual?500 ??Potassium:?2.0 ??Sodium:?135 ??EDW:?79.5 ??Duration:?4:00 ??Calcium:?2.5 ??Bicarb:?35 ??Rx?updated?on:?12/11/2022 TREATMENT?ASSESSMENT BP?Stand?Pre ??12/08/2022:?207/107 ??12/04/2022:?199/91 BP?Sit?Pre ??12/08/2022:?224/100 ??12/06/2022:?199/98 ??12/04/2022:?178/98 BP?Stand?Post ??12/06/2022:?181/91 ??12/04/2022:?144/88 BP?Sit?Post ??12/08/2022:?178/92 ??12/06/2022:?183/98 ??12/04/2022:?138/90 Tx?Duration ??12/08/2022:?4:07 ??12/06/2022:?4:09 ??12/04/2022:?4:26 Missed?Treatments 0?-?last?30?days 0?-?last?60?days FLUID?ASSESSMENT EDW?(kg) ??12/08/2022:?81.5 ??12/06/2022:?81.5 ??12/04/2022:?81.5 Weight?Pre?(kg) ??12/08/2022:?81.7 ??12/06/2022:?81.8 ??12/04/2022:?82.4 Weight?Post?(kg) ??12/08/2022:?79.0 ??12/06/2022:?79.3 ??12/04/2022:?79.8 PWV?(kg) ??12/08/2022:?-2.5 ??12/06/2022:?-2.2 ??12/04/2022:?-1.7 UF?Rate?(mL/kg/hr) ??12/08/2022:?8.3 ??12/06/2022:?7.6 ??12/04/2022:?7.3 ADEQUACY?ASSESSMENT spKt/V,?URR ??11/29/2022:?1.39,?69.0 ??11/17/2022:?1.45,?70.0 ??09/25/2022:?1.93,?80.0 ACCESS?ASSESSMENT ??Access?Type:?AVGraft ??Access?SubType:?Synthetic?-?[place]?Acuseal ??Access?Status:?Active?(In?Use)?-?08/27/2020 ??Access?Location:?Right?Upper?Arm ??Created:?06/15/2020 Flow ??10/04/2022:?1047 ??08/23/2022:?1048 ??08/02/2022:?1240 ANEMIA?ASSESSMENT HGB,?TSAT ??12/04/2022:?12.1,?- ??11/29/2022:?11.3,?28.0 ??11/20/2022:?10.4,?- ?? Ferritin ??11/29/2022:?926.0 ??11/06/2022:?1000.0 ??10/11/2022:?1302.0 Mircera,?IVP?(mcg) ??11/24/2022:?225 ??11/10/2022:?225 ??10/18/2022:?200 BMM?ASSESSMENT Phosphorus,?Calcium ??12/04/2022:?-,?9.0 ??11/29/2022:?2.7,?9.1 ??11/20/2022:?-,?9.1 ?? PTH,?Intact ??11/29/2022:?270.0 ??11/06/2022:?323.0 ??10/11/2022:?351.0 Vitamin?D?(Calcitriol)?Oral?(mcg) ??12/08/2022:?0.25 ??12/06/2022:?0.25 ??12/04/2022:?0.25 NUTRITION?ASSESSMENT Albumin,?Potassium ??12/04/2022:?3.9,?5.0 ??11/29/2022:?4.2,?3.8 ??11/20/2022:?3.9,?4.0 ?? eNPCR ??11/29/2022:?0.54 ??11/17/2022:?0.57 ??09/25/2022:?1.27 DIAGNOSIS Chief?Complaint:?N18.6?End?stage?renal?disease Patient?data?updated?12/11/2022?at?12:40?PM Signed?By:?Chris,?Tawana,?INFECTION CONTROL NURSE??on?12/11/2022?12:40:36 PM END OF DOCUMENT
--- OUTSIDE RECORDS SUMMARY | 2023-04-03 03:48 | XMS_ITS ---
Author Name Beto Solano Address [address] [place] [id number] Phone [phone] Organization [facility] e, NA DOCUMENT DISCLAIMER Multiple document versions may exist, please be sure you review the latest version. The information in the [facility] Progress Note Document represents a providers documented clinical note containing certain health and medical information. It may not contain the complete medical history for the patient and should be independently verified. The represented time in the document is Eastern Time PROVIDER ROUNDING NOTE COMPREHENSIVE Patient:?Vianca?Mars,?1960,?61y,?F Dialysis?Location:?[facility] Attending?Political Aide:?Beto?Russ Service?Date:?07/03/2022 Service?Provider:?Beto?Russ,? I?met?face?to?face?with?the?patient?today. OVERVIEW The?patient?presented?with?ESRD?on?dialysis Primary?cause?of?renal?failure:?Type?2?diabetes?mellitus&#16 0;with?diabetic?chronic?kidney?disease Comments:?07/03?had?catheter?associated?sepsis?but?now?is&#16 0;using?her?access?and?is?stable.?Was?admitted?to?[facility]?for?sepsis. LAST?HOSPITALIZATION Discharge?Diagnosis:?N39.0?Urinary?tract?infection,?site?not specified Admission?Date?06/18/22 Discharge?Date?06/24/22 DIALYSIS?PRESCRIPTION ??IHD?3x?Week?Start?date:?05/01/22 ??Dialyzer:?180NRe?Optiflux ??BFR:?450 ??DFR:?Manual?500 ??Potassium:?2.0 ??Sodium:?135 ??EDW:?83 ??Duration:?4:00 ??Calcium:?2.5 ??Bicarb:?35 ??Rx?updated?on:?05/01/2022 TREATMENT?ASSESSMENT Blood?pressure?controlled.?No?changes?indicated.? BP?Stand?Pre ??06/30/2022:?138/66 ??06/26/2022:?108/46 BP?Sit?Pre ??06/30/2022:?157/49 ??06/28/2022:?158/85 ??06/26/2022:?137/62 BP?Stand?Post ??06/26/2022:?121/60 BP?Sit?Post ??06/30/2022:?148/71 ??06/28/2022:?125/75 ??06/26/2022:?166/73 Tx?Duration ??06/30/2022:?4:07 ??06/28/2022:?4:16 ??06/26/2022:?3:58 Missed?Treatments 0?-?last?30?days 0?-?last?60?days FLUID?ASSESSMENT Fluid?status?acceptable.?Interdialytic?weight?gain?acceptable.?No ?changes?indicated.? EDW?(kg) ??06/30/2022:?83.0 ??06/28/2022:?83.0 ??06/26/2022:?83.0 Weight?Pre?(kg) ??06/30/2022:?82.3 ??06/28/2022:?89.2 ??06/26/2022:?83.7 Weight?Post?(kg) ??06/30/2022:?81.8 ??06/28/2022:?79.5 ??06/26/2022:?80.6 PWV?(kg) ??06/30/2022:?-1.2 ??06/28/2022:?-3.5 ??06/26/2022:?-2.4 UF?Rate?(mL/kg/hr) ??06/30/2022:?1.5 ??06/28/2022:?28.6 ??06/26/2022:?9.7 ADEQUACY?ASSESSMENT Adequacy?target?met.? spKt/V,?URR ??06/26/2022:?1.9,?79.0 ??06/07/2022:?1.86,?80.0 ??04/24/2022:?2.04,?82.0 ACCESS?ASSESSMENT ??Access?Type:?AVGraft ??Access?SubType:?Synthetic?-?[place]?Acuseal ??Access?Status:?Active?(In?Use)?-?08/27/2020 ??Access?Location:?Right?Upper?Arm ??Created:?06/15/2020 Flow ??06/28/2022:?847 ??05/31/2022:?877 ??04/26/2022:?634 Comments:?07/03?av?graft?recently?declotted?while?inpatient?at?[facility] V[facility]?access?reviewed. ANEMIA?ASSESSMENT Anemia?reviewed.? HGB,?TSAT ??06/26/2022:?10.6,?23.0 ??06/12/2022:?11.5,?- ??06/07/2022:?11.6,?23.0 ?? Ferritin ??06/26/2022:?1337.0 ??06/07/2022:?1042.0 ??04/24/2022:?1376.0 Mircera,?IVP?(mcg) ??06/09/2022:?225 ??05/26/2022:?225 ??05/12/2022:?225 BMM?ASSESSMENT PTH?within?target.?Bone?and?mineral?metabolism?parameters?re viewed.?Calcium?controlled.?Phosphorus?controlled.? Phosphorus,?Calcium ??06/26/2022:?4.2,?8.8 ??06/07/2022:?3.4,?9.4 ??04/24/2022:?3.1,?9.1 ?? PTH,?Intact ??06/26/2022:?254.0 ??06/07/2022:?146.0 ??04/24/2022:?285.0 Vitamin?D?(Calcitriol)?Oral?(mcg) ??06/30/2022:?0.25 ??06/28/2022:?0.25 ??06/26/2022:?0.25 NUTRITION?ASSESSMENT Nutrition?reviewed.?Potassium?controlled.? Albumin,?Potassium ??06/26/2022:?3.5,?5.4 ??06/07/2022:?3.8,?4.9 ??04/24/2022:?4.1,?4.8 ?? eNPCR ??04/24/2022:?1.27 ??04/03/2022:?0.99 ??03/06/2022:?1.43 PHYSICAL?EXAM Exam?Performed.?Vital?Signs?Reviewed.?Lungs?-?Clear. DIAGNOSIS Chief?Complaint:?N18.6?End?stage?renal?disease Patient?data?updated?07/03/2022?at?10:56?AM Signed?By:?Russ,?Beto,???on?07/03/2022?10:59:01 AM END OF DOCUMENT
--- OUTSIDE RECORDS SUMMARY | 2023-04-03 03:48 | XMS_ITS ---
Author Name Beto Solano Address [address] [place] [id number] Phone [phone] Organization [facility] e, NA DOCUMENT DISCLAIMER Multiple document versions may exist, please be sure you review the latest version. The information in the [facility] Progress Note Document represents a providers documented clinical note containing certain health and medical information. It may not contain the complete medical history for the patient and should be independently verified. The represented time in the document is Eastern Time PROVIDER ROUNDING NOTE BASIC Patient:Oliver?Mars,?1960,?62y,?F Dialysis?[facility] Attending?Flood Control Engineer:?Beto?Russ Service?Date:?11/22/2022 Service?Provider:?Beto?Russ,? I?met?face?to?face?with?the?patient?today. OVERVIEW The?patient?presented?with?ESRD?on?dialysis Primary?cause?of?renal?failure:?Type?2?diabetes?mellitus&#16 0;with?diabetic?chronic?kidney?disease Comments:?8/2?might?have?to?move?from?current?home?situ ation.?Will?let?social?worker?know DIALYSIS?PRESCRIPTION ??IHD?3x?Week?Start?date:?08/04/22 ??Dialyzer:?180NRe?Optiflux ??BFR:?450 ??DFR:?Manual?500 ??Potassium:?2.0 ??Sodium:?135 ??EDW:?81.5 ??Duration:?4:00 ??Calcium:?2.5 ??Bicarb:?35 ??Rx?updated?on:?08/03/2022 TREATMENT?ASSESSMENT BP?Stand?Pre ??11/20/2022:?190/97 ??11/17/2022:?197/94 ??11/15/2022:?197/87 BP?Sit?Pre ??11/20/2022:?186/96 ??11/17/2022:?203/108 ??11/15/2022:?200/87 BP?Stand?Post ??11/20/2022:?176/98 ??11/17/2022:?172/96 ??11/15/2022:?175/98 BP?Sit?Post ??11/20/2022:?133/85 ??11/17/2022:?182/95 ??11/15/2022:?165/96 Tx?Duration ??11/20/2022:?4:01 ??11/17/2022:?4:09 ??11/15/2022:?4:02 Missed?Treatments 0?-?last?30?days 0?-?last?60?days FLUID?ASSESSMENT EDW?(kg) ??11/20/2022:?81.5 ??11/17/2022:?81.5 ??11/15/2022:?81.5 Weight?Pre?(kg) ??11/20/2022:?83.9 ??11/17/2022:?83.1 ??11/15/2022:?82.9 Weight?Post?(kg) ??11/20/2022:?81.0 ??11/17/2022:?80.4 ??11/15/2022:?81.1 PWV?(kg) ??11/20/2022:?-0.5 ??11/17/2022:?-1.1 ??11/15/2022:?-0.4 UF?Rate?(mL/kg/hr) ??11/20/2022:?8.9 ??11/17/2022:?8.1 ??11/15/2022:?5.5 ADEQUACY?ASSESSMENT spKt/V,?URR ??11/17/2022:?1.45,?70.0 ??09/25/2022:?1.93,?80.0 ??08/21/2022:?1.62,?74.0 ACCESS?ASSESSMENT ??Access?Type:?AVGraft ??Access?SubType:?Synthetic?-?[place]?Acuseal ??Access?Status:?Active?(In?Use)?-?08/27/2020 ??Access?Location:?Right?Upper?Arm ??Created:?06/15/2020 Flow ??10/04/2022:?1047 ??08/23/2022:?1048 ??08/02/2022:?1240 ANEMIA?ASSESSMENT HGB,?TSAT ??11/20/2022:?10.4,?- ??11/13/2022:?8.6,?- ??11/06/2022:?9.4,?26.0 ?? Ferritin ??11/06/2022:?1000.0 ??10/11/2022:?1302.0 ??08/21/2022:?907.0 Mircera,?IVP?(mcg) ??11/10/2022:?225 ??10/18/2022:?200 ??10/13/2022:?225 BMM?ASSESSMENT Phosphorus,?Calcium ??11/20/2022:?-,?9.1 ??11/13/2022:?-,?8.2 ??11/06/2022:?3.8,?8.2 ?? PTH,?Intact ??11/06/2022:?323.0 ??10/11/2022:?351.0 ??09/25/2022:?227.0 Vitamin?D?(Calcitriol)?Oral?(mcg) ??11/20/2022:?0.25 ??11/17/2022:?0.25 ??11/15/2022:?0.25 NUTRITION?ASSESSMENT Albumin,?Potassium ??11/20/2022:?3.9,?4.0 ??11/13/2022:?3.7,?3.9 ??11/06/2022:?3.7,?5.8 ?? eNPCR ??11/17/2022:?0.57 ??09/25/2022:?1.27 ??08/21/2022:?1.07 Patient?data?updated?11/22/2022?at?1:42?PM Signed?By:?Russ,?Beto,???on?11/22/2022?1:44:03?PM END OF DOCUMENT
--- OUTSIDE RECORDS SUMMARY | 2023-04-03 03:48 | XMS_ITS ---
Author Name Jesse Perezcy Address [address] [place] [address] Phone [phone] Organization [facility] e, NA DOCUMENT DISCLAIMER Multiple document versions may exist, please be sure you review the latest version. The information in the [facility] Progress Note Document represents a providers documented clinical note containing certain health and medical information. It may not contain the complete medical history for the patient and should be independently verified. The represented time in the document is Eastern Time PROVIDER ROUNDING NOTE BASIC Patient:?Vianca?Mars,?1960,?62y,?F Dialysis?Location:?[facility] Attending?Cro:?Beto?Russ Service?Date:?03/26/2023 Service?Provider:?Tawana?Chris,?HEALTH AND SAFETY INSPECTOR I?met?face?to?face?with?the?patient?today. OVERVIEW The?patient?presented?with?ESRD?on?dialysis Primary?cause?of?renal?failure:?Type?2?diabetes?mellitus&#16 0;with?diabetic?chronic?kidney?disease Comments:?03/26/23?-?Increased?anxiety?and?confusion?today.?P aranoid?that?dialysis?staff?were?keeping?her?here?longer&#16 0;than?usual.?Difficult?to?redirect.?She?did?finish?her&#160 ;whole?treatment?with?frequent?reassurance.? 03/16/23?-?Became?hypotensive?and?unresponsive?near?end?of&# 160;treatment?requiring?extra?rinseback.?Will?increase?EDW?to&#16 0;what?she?leaves?at?today.?Staff?will?also?update?her med?list.? 03/12?Begining?to?see?high?IDWG/will?need?to?discuss?with?card punching machine operator/biotechnician Medications?and?labs?reviewed. 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 Admission?Date?11/30/22 Discharge?Date?12/01/22 DIALYSIS?PRESCRIPTION ??IHD?3x?Week?Start?date:?03/21/23 ??Dialyzer:?180NRe?Optiflux ??BFR:?450 ??DFR:?Manual?500 ??Potassium:?2.0 ??Sodium:?135 ??EDW:?78.5 ??Duration:?4:00 ??Calcium:?2.5 ??Bicarb:?35 ??Rx?updated?on:?03/19/2023 TREATMENT?ASSESSMENT BP?Stand?Pre ??03/23/2023:?160/73 ??03/21/2023:?170/81 ??03/19/2023:?164/76 BP?Sit?Pre ??03/23/2023:?189/81 ??03/21/2023:?189/85 ??03/19/2023:?189/76 BP?Stand?Post ??03/23/2023:?121/58 ??03/21/2023:?113/59 ??03/19/2023:?147/43 BP?Sit?Post ??03/23/2023:?123/58 ??03/21/2023:?147/72 ??03/19/2023:?136/69 Tx?Duration ??03/23/2023:?3:55 ??03/21/2023:?4:06 ??03/19/2023:?3:55 Missed?Treatments 0?-?last?30?days 0?-?last?60?days FLUID?ASSESSMENT EDW?(kg) ??03/23/2023:?78.5 ??03/21/2023:?78.5 ??03/19/2023:?78.0 Weight?Pre?(kg) ??03/23/2023:?81.9 ??03/21/2023:?80.8 ??03/19/2023:?82.4 Weight?Post?(kg) ??03/23/2023:?78.5 ??03/21/2023:?78.4 ??03/19/2023:?78.8 PWV?(kg) ??03/23/2023:?0.0 ??03/21/2023:?-0.1 ??03/19/2023:?0.8 UF?Rate?(mL/kg/hr) ??03/23/2023:?11.1 ??03/21/2023:?7.5 ??03/19/2023:?11.7 ADEQUACY?ASSESSMENT spKt/V,?URR ??03/07/2023:?1.54,?72.0 ??02/26/2023:?3.78,?94.0 ??01/22/2023:?1.83,?79.0 ACCESS?ASSESSMENT ??Access?Type:?CVCatheter ??Access?SubType:?Tunneled ??Access?Status:?Active?(In?Use)?-?11/06/2022 ??Access?Location:?Neck ??Placed:?11/06/2022 ANEMIA?ASSESSMENT HGB,?TSAT ??03/05/2023:?11.7,?- ??02/26/2023:?11.4,?31.0 ??02/19/2023:?10.4,?- ?? Ferritin ??02/26/2023:?613.0 ??01/22/2023:?1153.0 ??12/25/2022:?998.0 Mircera,?IVP?(mcg) ??02/23/2023:?225 ??02/09/2023:?225 ??01/26/2023:?225 BMM?ASSESSMENT Phosphorus,?Calcium ??02/26/2023:?3.1,?9.0 ??01/22/2023:?3.0,?8.8 ??12/25/2022:?2.7,?9.2 ?? PTH,?Intact ??02/26/2023:?318.0 ??01/22/2023:?277.0 ??12/25/2022:?458.0 Vitamin?D?(Calcitriol)?Oral?(mcg) ??03/23/2023:?0.25 ??03/21/2023:?0.25 ??03/19/2023:?0.25 NUTRITION?ASSESSMENT Albumin,?Potassium ??02/26/2023:?4.1,?5.7 ??01/29/2023:?-,?5.5 ??01/22/2023:?4.2,?6.0 ?? eNPCR ??03/07/2023:?1.08 ??02/26/2023:?1.76 ??01/22/2023:?1.28 DIAGNOSIS Chief?Complaint:?N18.6?End?stage?renal?disease Patient?data?updated?03/26/2023?at?1:32?PM Signed?By:?Chris,?Tawana,?HEALTH AND SAFETY INSPECTOR??on?03/26/2023?1:33:08?PM END OF DOCUMENT
--- OUTSIDE RECORDS SUMMARY | 2023-04-03 03:48 | XMS_ITS ---
Author Name Jesse Perezcy Address [address] [place] [id number] Phone [phone] Organization [facility] e, NA DOCUMENT DISCLAIMER Multiple document versions may exist, please be sure you review the latest version. The information in the [facility] Progress Note Document represents a providers documented clinical note containing certain health and medical information. It may not contain the complete medical history for the patient and should be independently verified. The represented time in the document is Eastern Time PROVIDER ROUNDING NOTE BASIC Patient:?Vianca?Mars,?1960,?62y,?F Dialysis?Location:?[facility] Attending?Synthetic Chemist:?Beto?Russ Service?Date:?01/01/2023 Service?Provider:?Tawana?Chris,?BURN TABLE OPERATOR I?met?face?to?face?with?the?patient?today. OVERVIEW The?patient?presented?with?ESRD?on?dialysis Primary?cause?of?renal?failure:?Type?2?diabetes?mellitus&#16 0;with?diabetic?chronic?kidney?disease Comments:?01/01/23?-?Living?with?new?waistband setter,?doesn't?like& #160;her?new?roommate?which?is?distressing?to?her.?She? seems?to?be?pulling?on?catheter?and?removing?her?dressi ng?in?her?sleep?lately,?nursing?is?trying?different?dressings?on?her.? 12/22/22 Tolerating?HD?denies?any?concerns.?Blood?pressures?have?been ?elevated?last?three?sessions.?UFG?challenge?1L. Patient?also?has?been?scratching?[facility]?site?which?is?note d?with?mild?redness?staff?asked?to?apply?light?coat&#16 0;of?bacitracin?and?dress?with?tegaderm.?Patient?education?o n?refraining?from?place?fingers?below?dressing?due?to?risk?for?infection. 12/11/22?-?Stable?treatment.? 11/29/22?-?Stable?treatment?with?no?acute?issues.?States? she?has?a?seizure?over?the?weekend. 11/22?might?have?to?move?from?current?home?situation.?Will?let?social?worker?know? Medications?and?labs?reviewed. 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 Admission?Date?11/30/22 Discharge?Date?12/01/22 DIALYSIS?PRESCRIPTION ??IHD?3x?Week?Start?date:?01/01/23 ??Dialyzer:?180NRe?Optiflux ??BFR:?450 ??DFR:?Manual?500 ??Potassium:?2.0 ??Sodium:?135 ??EDW:?77 ??Duration:?4:00 ??Calcium:?2.5 ??Bicarb:?35 ??Rx?updated?on:?12/29/2022 TREATMENT?ASSESSMENT BP?Stand?Pre ??12/29/2022:?165/86 ??12/25/2022:?217/109 BP?Sit?Pre ??12/29/2022:?191/90 ??12/27/2022:?179/93 ??12/25/2022:?215/97 BP?Stand?Post ??12/29/2022:?156/83 ??12/25/2022:?116/89 BP?Sit?Post ??12/29/2022:?205/93 ??12/27/2022:?179/94 ??12/25/2022:?137/79 Tx?Duration ??12/29/2022:?4:10 ??12/27/2022:?3:55 ??12/25/2022:?4:00 Missed?Treatments 0?-?last?30?days 0?-?last?60?days FLUID?ASSESSMENT EDW?(kg) ??12/29/2022:?77.5 ??12/27/2022:?78.0 ??12/25/2022:?78.0 Weight?Pre?(kg) ??12/29/2022:?79.6 ??12/27/2022:?78.4 ??12/25/2022:?82.0 Weight?Post?(kg) ??12/29/2022:?77.1 ??12/27/2022:?77.3 ??12/25/2022:?77.5 PWV?(kg) ??12/29/2022:?-0.4 ??12/27/2022:?-0.7 ??12/25/2022:?-0.5 UF?Rate?(mL/kg/hr) ??12/29/2022:?7.8 ??12/27/2022:?3.6 ??12/25/2022:?14.5 ADEQUACY?ASSESSMENT spKt/V,?URR ??12/25/2022:?1.58,?72.0 ??12/20/2022:?1.17,?63.0 ??11/29/2022:?1.39,?69.0 ACCESS?ASSESSMENT ??Access?Type:?AVGraft ??Access?SubType:?Synthetic?-?[place]?Acuseal ??Access?Status:?Active?(In?Use)?-?08/27/2020 ??Access?Location:?Right?Upper?Arm ??Created:?06/15/2020 Flow ??10/04/2022:?1047 ??08/23/2022:?1048 ??08/02/2022:?1240 ANEMIA?ASSESSMENT HGB,?TSAT ??12/25/2022:?11.1,?43.0 ??12/18/2022:?11.5,?- ??12/11/2022:?11.1,?- ?? Ferritin ??12/25/2022:?998.0 ??11/29/2022:?926.0 ??11/06/2022:?1000.0 Mircera,?IVP?(mcg) ??11/24/2022:?225 ??11/10/2022:?225 ??10/18/2022:?200 BMM?ASSESSMENT Phosphorus,?Calcium ??12/25/2022:?2.7,?9.2 ??12/04/2022:?-,?9.0 ??11/29/2022:?2.7,?9.1 ?? PTH,?Intact ??12/25/2022:?458.0 ??11/29/2022:?270.0 ??11/06/2022:?323.0 Vitamin?D?(Calcitriol)?Oral?(mcg) ??12/29/2022:?0.25 ??12/27/2022:?0.25 ??12/25/2022:?0.25 NUTRITION?ASSESSMENT Albumin,?Potassium ??12/25/2022:?4.1,?4.7 ??12/04/2022:?3.9,?5.0 ??11/29/2022:?4.2,?3.8 ?? eNPCR ??12/25/2022:?1.25 ??12/20/2022:?0.63 ??11/29/2022:?0.54 DIAGNOSIS Chief?Complaint:?N18.6?End?stage?renal?disease Patient?data?updated?01/01/2023?at?11:39?AM Signed?By:?Chris,?Tawana,?BURN TABLE OPERATOR??on?01/01/2023?11:40:45 AM END OF DOCUMENT
--- OUTSIDE RECORDS SUMMARY | 2023-04-03 03:48 | XMS_ITS ---
Author Name Beto Solano Address [address] [place] [address] Phone [phone] Organization [facility] [place] [facility] e, NA DOCUMENT DISCLAIMER Multiple document versions may exist, please be sure you review the latest version. The information in the [facility] [place] [facility] Progress Note Document represents a providers documented clinical note containing certain health and medical information. It may not contain the complete medical history for the patient and should be independently verified. The represented time in the document is Eastern Time PROVIDER ROUNDING NOTE COMPREHENSIVE Patient:?Vianca?Mars,?1960,?62y,?F Dialysis?Location:?[facility] Attending?Quiller Operator:?Beto?Russ Service?Date:?10/09/2022 Service?Provider:?Beto?Russ,? I?met?face?to?face?with?the?patient?today. OVERVIEW The?patient?presented?with?ESRD?on?dialysis Primary?cause?of?renal?failure:?Type?2?diabetes?mellitus&#16 0;with?diabetic?chronic?kidney?disease Comments:?10/09?no?acute?issues. Medications?and?labs?reviewed. LAST?HOSPITALIZATION Discharge?Diagnosis:?N39.0?Urinary?tract?infection,?site?not specified Admission?Date?06/18/22 Discharge?Date?06/24/22 DIALYSIS?PRESCRIPTION ??IHD?3x?Week?Start?date:?08/04/22 ??Dialyzer:?180NRe?Optiflux ??BFR:?450 ??DFR:?Manual?500 ??Potassium:?2.0 ??Sodium:?135 ??EDW:?81.5 ??Duration:?4:00 ??Calcium:?2.5 ??Bicarb:?35 ??Rx?updated?on:?08/03/2022 TREATMENT?ASSESSMENT Blood?pressure?controlled.?No?changes?indicated.? BP?Stand?Pre ??10/07/2022:?142/58 ??10/04/2022:?143/70 BP?Sit?Pre ??10/07/2022:?187/75 ??10/04/2022:?186/85 ??10/02/2022:?174/71 BP?Stand?Post ??10/07/2022:?128/76 ??10/04/2022:?155/82 ??10/02/2022:?125/60 BP?Sit?Post ??10/07/2022:?138/70 ??10/04/2022:?134/64 ??10/02/2022:?143/53 Tx?Duration ??10/07/2022:?3:48 ??10/04/2022:?3:47 ??10/02/2022:?4:05 Missed?Treatments 0?-?last?30?days 0?-?last?60?days FLUID?ASSESSMENT Fluid?status?not?acceptable.?Interdialytic?weight?gain?not?a cceptable.?No?changes?indicated.? EDW?(kg) ??10/07/2022:?81.5 ??10/04/2022:?81.5 ??10/02/2022:?81.5 Weight?Pre?(kg) ??10/07/2022:?85.2 ??10/04/2022:?84.5 ??10/02/2022:?85.5 Weight?Post?(kg) ??10/07/2022:?81.7 ??10/04/2022:?81.6 ??10/02/2022:?81.7 PWV?(kg) ??10/07/2022:?0.2 ??10/04/2022:?0.1 ??10/02/2022:?0.2 UF?Rate?(mL/kg/hr) ??10/07/2022:?11.3 ??10/04/2022:?9.4 ??10/02/2022:?11.4 ADEQUACY?ASSESSMENT Adequacy?target?met.?Prescription?compliance?acceptable.?No?changes?indicated.? spKt/V,?URR ??09/25/2022:?1.93,?80.0 ??08/21/2022:?1.62,?74.0 ??07/24/2022:?1.84,?78.0 ACCESS?ASSESSMENT ??Access?Type:?AVGraft ??Access?SubType:?Synthetic?-?[place]?Acuseal ??Access?Status:?Active?(In?Use)?-?08/27/2020 ??Access?Location:?Right?Upper?Arm ??Created:?06/15/2020 Flow ??10/04/2022:?1047 ??08/23/2022:?1048 ??08/02/2022:?1240 Vascular?access?reviewed.?Current?access?is?permanent?and?functioning?well. ANEMIA?ASSESSMENT HGB?below?goal.?Iron?parameters?acceptable.?JUANITA?dose?inadequate.? HGB ??10/02/2022:?8.8 ??09/11/2022:?11.0 ??09/04/2022:?12.1 ?? Ferritin ??08/21/2022:?907.0 ??07/24/2022:?811.0 ??06/26/2022:?1337.0 Mircera,?IVP?(mcg) ??08/04/2022:?225 ??07/21/2022:?225 Iron?Sucrose?(Venofer)?(mg) ??08/09/2022:?100 ??08/07/2022:?100 ??08/04/2022:?100 BMM?ASSESSMENT PTH?controlled.?Calcium?controlled.?Phosphorus?controlled.?No?dom nges?indicated.? Phosphorus,?Calcium ??08/21/2022:?4.1,?8.9 ??07/24/2022:?2.5,?9.3 ??06/26/2022:?4.2,?8.8 ?? PTH,?Intact ??09/25/2022:?227.0 ??08/21/2022:?369.0 ??07/24/2022:?231.0 Vitamin?D?(Calcitriol)?Oral?(mcg) ??10/07/2022:?0.25 ??10/04/2022:?0.25 ??10/02/2022:?0.25 NUTRITION?ASSESSMENT Potassium?controlled.?Albumin?controlled.?No?changes?indicated.? Albumin,?Potassium ??09/25/2022:?3.8,?- ??08/21/2022:?4.4,?4.7 ??07/24/2022:?4.0,?4.2 ?? eNPCR ??09/25/2022:?1.27 ??08/21/2022:?1.07 ??07/24/2022:?0.84 PHYSICAL?EXAM Exam?Performed.?Vital?Signs?Reviewed.?Lungs?-?Clear. DIAGNOSIS Chief?Complaint:?N18.6?End?stage?renal?disease Patient?data?updated?10/09/2022?at?10:49?AM Signed?By:?Russ,?Beto???on?10/09/2022?10:51:21 AM END OF DOCUMENT
--- OUTSIDE RECORDS SUMMARY | 2023-04-03 03:48 | XMS_ITS ---
Author Name Beto Solano Address [address] [place] [address] Phone [phone] Organization [facility] e, NA DOCUMENT DISCLAIMER Multiple document versions may exist, please be sure you review the latest version. The information in the [facility] Progress Note Document represents a providers documented clinical note containing certain health and medical information. It may not contain the complete medical history for the patient and should be independently verified. The represented time in the document is Eastern Time PROVIDER ROUNDING NOTE COMPREHENSIVE Patient:?Vianca?Mars,?1960,?62y,?F Dialysis?Location:?[facility] Attending?Machine Shop Helper:?Ronal Service?Date:?01/17/2023 Service?Provider:?Beto?Russ,? I?met?face?to?face?with?the?patient?today. OVERVIEW The?patient?presented?with?ESRD?on?dialysis Primary?cause?of?renal?failure:?Type?2?diabetes?mellitus&#16 0;with?diabetic?chronic?kidney?disease Comments:?01/17?now?in?new?home?/settling?in. 01/08?moved?into?new?living?situation.?Overall?doing?ok Medications?and?labs?reviewed. 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 BP?Stand?Pre ??01/15/2023:?164/82 ??01/12/2023:?165/77 ??01/10/2023:?173/93 BP?Sit?Pre ??01/15/2023:?147/93 ??01/12/2023:?161/81 ??01/10/2023:?182/95 BP?Stand?Post ??01/12/2023:?108/59 ??01/10/2023:?150/80 BP?Sit?Post ??01/15/2023:?117/57 ??01/12/2023:?101/51 ??01/10/2023:?148/74 Tx?Duration ??01/15/2023:?4:10 ??01/12/2023:?4:02 ??01/10/2023:?4:03 Missed?Treatments 0?-?last?30?days 0?-?last?60?days FLUID?ASSESSMENT Fluid?status?acceptable.?Interdialytic?weight?gain?acceptable.? EDW?(kg) ??01/15/2023:?76.5 ??01/12/2023:?76.5 ??01/10/2023:?77.0 Weight?Pre?(kg) ??01/15/2023:?80.5 ??01/12/2023:?78.6 ??01/10/2023:?79.8 Weight?Post?(kg) ??01/15/2023:?76.5 ??01/12/2023:?77.1 ??01/10/2023:?76.2 PWV?(kg) ??01/15/2023:?0.0 ??01/12/2023:?0.6 ??01/10/2023:?-0.8 UF?Rate?(mL/kg/hr) ??01/15/2023:?12.5 ??01/12/2023:?4.8 ??01/10/2023:?11.7 ADEQUACY?ASSESSMENT Adequacy?target?met.?Prescription?compliance?acceptable.? spKt/V,?URR ??12/25/2022:?1.58,?72.0 ??12/20/2022:?1.17,?63.0 ??11/29/2022:?1.39,?69.0 ACCESS?ASSESSMENT ??Access?Type:?CVCatheter ??Access?SubType:?Tunneled ??Access?Status:?Active?(In?Use)?-?11/06/2022 ??Access?Location:?Neck ??Placed:?11/06/2022 Vascular?access?reviewed. ANEMIA?ASSESSMENT HGB?below?goal.?Iron?parameters?acceptable.?JAUNITA?dose?adequate.? HGB,?TSAT ??01/08/2023:?9.7,?- ??01/01/2023:?10.6,?- ??12/25/2022:?11.1,?43.0 ?? Ferritin ??12/25/2022:?998.0 ??11/29/2022:?926.0 ??11/06/2022:?1000.0 Mircera,?IVP?(mcg) ??11/24/2022:?225 ??11/10/2022:?225 ??10/18/2022:?200 BMM?ASSESSMENT Comments:?01/17?hold?renvela PTH?controlled.?Calcium?controlled.?Phosphorus?low.?BMM?meds&#160 ;adherence?acceptable.? Phosphorus,?Calcium ??12/25/2022:?2.7,?9.2 ??12/04/2022:?-,?9.0 ??11/29/2022:?2.7,?9.1 ?? PTH,?Intact ??12/25/2022:?458.0 ??11/29/2022:?270.0 ??11/06/2022:?323.0 Vitamin?D?(Calcitriol)?Oral?(mcg) ??01/15/2023:?0.25 ??01/12/2023:?0.25 ??01/10/2023:?0.25 NUTRITION?ASSESSMENT Potassium?controlled.?Albumin?controlled.?No?changes?indicated.? Albumin,?Potassium ??12/25/2022:?4.1,?4.7 ??12/04/2022:?3.9,?5.0 ??11/29/2022:?4.2,?3.8 ?? eNPCR ??12/25/2022:?1.25 ??12/20/2022:?0.63 ??11/29/2022:?0.54 PHYSICAL?EXAM Exam?Performed.?Vital?Signs?Reviewed.?Lungs?-?Clear. DIAGNOSIS Chief?Complaint:?N18.6?End?stage?renal?disease Patient?data?updated?01/17/2023?at?10:34?AM Signed?By:?Russ,?Beto,???on?01/17/2023?10:36:18 AM END OF DOCUMENT
--- OUTSIDE RECORDS SUMMARY | 2023-04-03 03:48 | XMS_ITS ---
Author Name Jesse Perezcy Address [address] [place] [address] Phone [phone] Organization [facility] e, NA DOCUMENT DISCLAIMER Multiple document versions may exist, please be sure you review the latest version. The information in the [facility] Progress Note Document represents a providers documented clinical note containing certain health and medical information. It may not contain the complete medical history for the patient and should be independently verified. The represented time in the document is Eastern Time PROVIDER ROUNDING NOTE BASIC Patient:?Vianca?Mars,?1960,?61y,?F Dialysis?Location:[facility] Attending?Clinical Applications Specialist:?Beto?Russ Service?Date:?07/26/2022 Service?Provider:?Tawana?Chris,?WAFER BATTER MIXER I?met?face?to?face?with?the?patient?today. OVERVIEW The?patient?presented?with?ESRD?on?dialysis Primary?cause?of?renal?failure:?Type?2?diabetes?mellitus&#16 0;with?diabetic?chronic?kidney?disease Comments:?07/26/22?-?Stable?dialysis?treatment?with?no?complai nts?or?acute?issues.? 07/24?patient?seen?on?dialysis.?Reasonable?intradialytic?weight gain.? Medications?and?labs?reviewed. LAST?HOSPITALIZATION Discharge?Diagnosis:?N39.0?Urinary?tract?infection,?site?not specified Admission?Date?06/18/22 Discharge?Date?06/24/22 DIALYSIS?PRESCRIPTION ??IHD?3x?Week?Start?date:?07/19/22 ??Dialyzer:?180NRe?Optiflux ??BFR:?450 ??DFR:?Manual?500 ??Potassium:?2.0 ??Sodium:?135 ??EDW:?82 ??Duration:?4:00 ??Calcium:?2.5 ??Bicarb:?35 ??Rx?updated?on:?07/19/2022 TREATMENT?ASSESSMENT BP?Stand?Pre ??07/24/2022:?139/55 ??07/21/2022:?145/58 BP?Sit?Pre ??07/24/2022:?158/86 ??07/21/2022:?166/72 ??07/19/2022:?156/77 BP?Stand?Post ??07/24/2022:?130/66 ??07/21/2022:?149/52 BP?Sit?Post ??07/24/2022:?139/67 ??07/21/2022:?173/78 ??07/19/2022:?140/98 Tx?Duration ??07/24/2022:?4:04 ??07/21/2022:?4:07 ??07/19/2022:?4:10 Missed?Treatments 0?-?last?30?days 0?-?last?60?days FLUID?ASSESSMENT EDW?(kg) ??07/24/2022:?82.0 ??07/21/2022:?82.0 ??07/19/2022:?82.5 Weight?Pre?(kg) ??07/24/2022:?85.0 ??07/21/2022:?84.2 ??07/19/2022:?84.1 Weight?Post?(kg) ??07/24/2022:?81.6 ??07/21/2022:?81.8 ??07/19/2022:?82.2 PWV?(kg) ??07/24/2022:?-0.4 ??07/21/2022:?-0.2 ??07/19/2022:?-0.3 UF?Rate?(mL/kg/hr) ??07/24/2022:?10.2 ??07/21/2022:?7.1 ??07/19/2022:?5.5 ADEQUACY?ASSESSMENT spKt/V,?URR ??06/26/2022:?1.9,?79.0 ??06/07/2022:?1.86,?80.0 ??04/24/2022:?2.04,?82.0 ACCESS?ASSESSMENT ??Access?Type:?AVGraft ??Access?SubType:?Synthetic?-?[place]?Acuseal ??Access?Status:?Active?(In?Use)?-?08/27/2020 ??Access?Location:?Right?Upper?Arm ??Created:?06/15/2020 Flow ??06/28/2022:?847 ??05/31/2022:?877 ??04/26/2022:?634 ANEMIA?ASSESSMENT HGB ??07/17/2022:?10.4 ??07/10/2022:?10.4 ??07/03/2022:?10.0 ?? Ferritin ??06/26/2022:?1337.0 ??06/07/2022:?1042.0 ??04/24/2022:?1376.0 Mircera,?IVP?(mcg) ??07/21/2022:?225 ??07/07/2022:?225 ??06/09/2022:?225 BMM?ASSESSMENT Phosphorus,?Calcium ??06/26/2022:?4.2,?8.8 ??06/07/2022:?3.4,?9.4 ??04/24/2022:?3.1,?9.1 ?? PTH,?Intact ??06/26/2022:?254.0 ??06/07/2022:?146.0 ??04/24/2022:?285.0 Vitamin?D?(Calcitriol)?Oral?(mcg) ??07/24/2022:?0.25 ??07/21/2022:?0.25 ??07/19/2022:?0.25 NUTRITION?ASSESSMENT Albumin,?Potassium ??06/26/2022:?3.5,?5.4 ??06/07/2022:?3.8,?4.9 ??04/24/2022:?4.1,?4.8 ?? eNPCR ??04/24/2022:?1.27 ??04/03/2022:?0.99 ??03/06/2022:?1.43 DIAGNOSIS Chief?Complaint:?N18.6?End?stage?renal?disease Patient?data?updated?07/26/2022?at?12:14?PM Signed?By:?Chris,?Tawana,?WAFER BATTER MIXER??on?07/26/2022?12:15:04 PM END OF DOCUMENT
--- OUTSIDE RECORDS SUMMARY | 2023-04-03 03:48 | XMS_ITS ---
Author Name Beto Solano Address [address] [place] [id number] Phone [phone] Organization [facility] e, NA DOCUMENT DISCLAIMER Multiple document versions may exist, please be sure you review the latest version. The information in the [facility] Progress Note Document represents a providers documented clinical note containing certain health and medical information. It may not contain the complete medical history for the patient and should be independently verified. The represented time in the document is Eastern Time PROVIDER ROUNDING NOTE BASIC Patient:?Vianca?Mars,?1960,?61y,?F Dialysis?Location:?[facility] Attending?Microbiology Lab Analyst:?Beto?Russ Service?Date:?07/24/2022 Service?Provider:?Beto?Russ,? I?met?face?to?face?with?the?patient?today. OVERVIEW The?patient?presented?with?ESRD?on?dialysis Primary?cause?of?renal?failure:?Type?2?diabetes?mellitus&#16 0;with?diabetic?chronic?kidney?disease Comments:?4/3?patient?seen?on?dialysis.?Reasonable?intradialytic& #160;weight?gain. DIALYSIS?PRESCRIPTION ??IHD?3x?Week?Start?date:?07/19/22 ??Dialyzer:?180NRe?Optiflux ??BFR:?450 ??DFR:?Manual?500 ??Potassium:?2.0 ??Sodium:?135 ??EDW:?82 ??Duration:?4:00 ??Calcium:?2.5 ??Bicarb:?35 ??Rx?updated?on:?07/19/2022 TREATMENT?ASSESSMENT BP?Stand?Pre ??07/21/2022:?145/58 ??07/17/2022:?179/78 BP?Sit?Pre ??07/21/2022:?166/72 ??07/19/2022:?156/77 ??07/17/2022:?167/72 BP?Stand?Post ??07/21/2022:?149/52 BP?Sit?Post ??07/21/2022:?173/78 ??07/19/2022:?140/98 ??07/17/2022:?155/73 Tx?Duration ??07/21/2022:?4:07 ??07/19/2022:?4:10 ??07/17/2022:?3:59 Missed?Treatments 0?-?last?30?days 0?-?last?60?days FLUID?ASSESSMENT EDW?(kg) ??07/21/2022:?82.0 ??07/19/2022:?82.5 ??07/17/2022:?83.0 Weight?Pre?(kg) ??07/21/2022:?84.2 ??07/19/2022:?84.1 ??07/17/2022:?84.8 Weight?Post?(kg) ??07/21/2022:?81.8 ??07/19/2022:?82.2 ??07/17/2022:?82.2 PWV?(kg) ??07/21/2022:?-0.2 ??07/19/2022:?-0.3 ??07/17/2022:?-0.8 UF?Rate?(mL/kg/hr) ??07/21/2022:?7.1 ??07/19/2022:?5.5 ??07/17/2022:?7.9 ADEQUACY?ASSESSMENT spKt/V,?URR ??06/26/2022:?1.9,?79.0 ??06/07/2022:?1.86,?80.0 ??04/24/2022:?2.04,?82.0 ACCESS?ASSESSMENT ??Access?Type:?AVGraft ??Access?SubType:?Synthetic?-?[place]?Acuseal ??Access?Status:?Active?(In?Use)?-?08/27/2020 ??Access?Location:?Right?Upper?Arm ??Created:?06/15/2020 Flow ??06/28/2022:?847 ??05/31/2022:?877 ??04/26/2022:?634 ANEMIA?ASSESSMENT HGB ??07/17/2022:?10.4 ??07/10/2022:?10.4 ??07/03/2022:?10.0 ?? Ferritin ??06/26/2022:?1337.0 ??06/07/2022:?1042.0 ??04/24/2022:?1376.0 Mircera,?IVP?(mcg) ??07/21/2022:?225 ??07/07/2022:?225 ??06/09/2022:?225 BMM?ASSESSMENT Phosphorus,?Calcium ??06/26/2022:?4.2,?8.8 ??06/07/2022:?3.4,?9.4 ??04/24/2022:?3.1,?9.1 ?? PTH,?Intact ??06/26/2022:?254.0 ??06/07/2022:?146.0 ??04/24/2022:?285.0 Vitamin?D?(Calcitriol)?Oral?(mcg) ??07/21/2022:?0.25 ??07/19/2022:?0.25 ??07/17/2022:?0.25 NUTRITION?ASSESSMENT Albumin,?Potassium ??06/26/2022:?3.5,?5.4 ??06/07/2022:?3.8,?4.9 ??04/24/2022:?4.1,?4.8 ?? eNPCR ??04/24/2022:?1.27 ??04/03/2022:?0.99 ??03/06/2022:?1.43 Patient?data?updated?07/24/2022?at?12:33?PM Signed?By:?Russ,?Beto,???on?07/24/2022?12:35:38 PM END OF DOCUMENT
--- OUTSIDE RECORDS SUMMARY | 2023-04-03 03:48 | XMS_ITS ---
Author Name Beto Solano Address [address] [place] [address] Phone [phone] Organization [facility] e, NA DOCUMENT DISCLAIMER Multiple document versions may exist, please be sure you review the latest version. The information in the [facility] Progress Note Document represents a providers documented clinical note containing certain health and medical information. It may not contain the complete medical history for the patient and should be independently verified. The represented time in the document is Eastern Time PROVIDER ROUNDING NOTE COMPREHENSIVE Patient:?Vianca?Mars,?1960,?62y,?F Dialysis?Location:?[facility] Attending?Cell Coverer:?Beto?Russ Service?Date:?08/14/2022 Service?Provider:?Beto?Russ,? I?met?face?to?face?with?the?patient?today. OVERVIEW The?patient?presented?with?ESRD?on?dialysis Primary?cause?of?renal?failure:?Type?2?diabetes?mellitus&#16 0;with?diabetic?chronic?kidney?disease Comments:?07/31/22?-?Working?with?PT. 07/26/22?-?Stable?dialysis?treatment?with?no?complaints?or acute?issues.? 4/3?patient?seen?on?dialysis.?Reasonable?intradialytic?weight gain.? Medications?and?labs?reviewed. LAST?HOSPITALIZATION Discharge?Diagnosis:?N39.0?Urinary?tract?infection,?site?not specified Admission?Date?06/18/22 Discharge?Date?06/24/22 DIALYSIS?PRESCRIPTION ??IHD?3x?Week?Start?date:?08/04/22 ??Dialyzer:?180NRe?Optiflux ??BFR:?450 ??DFR:?Manual?500 ??Potassium:?2.0 ??Sodium:?135 ??EDW:?81.5 ??Duration:?4:00 ??Calcium:?2.5 ??Bicarb:?35 ??Rx?updated?on:?08/03/2022 TREATMENT?ASSESSMENT Blood?pressure?controlled.?No?changes?indicated.? BP?Stand?Pre ??08/11/2022:?125/64 ??08/07/2022:?149/61 BP?Sit?Pre ??08/11/2022:?181/80 ??08/09/2022:?191/89 ??08/07/2022:?173/77 BP?Stand?Post ??08/11/2022:?162/74 ??08/09/2022:?163/78 ??08/07/2022:?170/87 BP?Sit?Post ??08/11/2022:?186/83 ??08/09/2022:?168/72 ??08/07/2022:?138/55 Tx?Duration ??08/11/2022:?4:05 ??08/09/2022:?4:18 ??08/07/2022:?4:02 Missed?Treatments 0?-?last?30?days 0?-?last?60?days FLUID?ASSESSMENT Fluid?status?acceptable.?Interdialytic?weight?gain?acceptable.? EDW?(kg) ??08/11/2022:?81.5 ??08/09/2022:?81.5 ??08/07/2022:?81.5 Weight?Pre?(kg) ??08/11/2022:?83.4 ??08/09/2022:?82.6 ??08/07/2022:?84.4 Weight?Post?(kg) ??08/11/2022:?81.4 ??08/09/2022:?81.4 ??08/07/2022:?81.4 PWV?(kg) ??08/11/2022:?-0.1 ??08/09/2022:?-0.1 ??08/07/2022:?-0.1 UF?Rate?(mL/kg/hr) ??08/11/2022:?6 ??08/09/2022:?3.4 ??08/07/2022:?9.1 ADEQUACY?ASSESSMENT Adequacy?target?met.?Prescription?compliance?acceptable.? spKt/V,?URR ??07/24/2022:?1.84,?78.0 ??06/26/2022:?1.9,?79.0 ??06/07/2022:?1.86,?80.0 ACCESS?ASSESSMENT ??Access?Type:?AVGraft ??Access?SubType:?Synthetic?-?[place]?Acuseal ??Access?Status:?Active?(In?Use)?-?08/27/2020 ??Access?Location:?Right?Upper?Arm ??Created:?06/15/2020 Flow ??08/02/2022:?1240 ??07/31/2022:?>2000 ??06/28/2022:?847 Vascular?access?reviewed.?Current?access?is?permanent?and?functioning?well. ANEMIA?ASSESSMENT JUANITA?adjusted?per?protocol.?Anemia?reviewed.? HGB,?TSAT ??08/07/2022:?12.0,?- ??07/31/2022:?10.8,?- ??07/24/2022:?11.3,?28.0 ?? Ferritin ??07/24/2022:?811.0 ??06/26/2022:?1337.0 ??06/07/2022:?1042.0 Mircera,?IVP?(mcg) ??08/04/2022:?225 ??07/21/2022:?225 ??07/07/2022:?225 Iron?Sucrose?(Venofer)?(mg) ??08/09/2022:?100 ??08/07/2022:?100 ??08/04/2022:?100 BMM?ASSESSMENT Bone?and?mineral?metabolism?parameters?reviewed.?Calcium?controll ed.?Phosphorus?controlled.?PTH?within?target.? Phosphorus,?Calcium ??07/24/2022:?2.5,?9.3 ??06/26/2022:?4.2,?8.8 ??06/07/2022:?3.4,?9.4 ?? PTH,?Intact ??07/24/2022:?231.0 ??06/26/2022:?254.0 ??06/07/2022:?146.0 Vitamin?D?(Calcitriol)?Oral?(mcg) ??08/11/2022:?0.25 ??08/09/2022:?0.25 ??08/07/2022:?0.25 NUTRITION?ASSESSMENT Nutrition?reviewed.?Potassium?controlled.? Albumin,?Potassium ??07/24/2022:?4.0,?4.2 ??06/26/2022:?3.5,?5.4 ??06/07/2022:?3.8,?4.9 ?? eNPCR ??07/24/2022:?0.84 ??04/24/2022:?1.27 ??04/03/2022:?0.99 PHYSICAL?EXAM Exam?Performed.?Vital?Signs?Reviewed.?Lungs?-?Clear. DIAGNOSIS Chief?Complaint:?N18.6?End?stage?renal?disease Patient?data?updated?08/14/2022?at?9:57?AM Signed?By:?Russ,?Beto???on?08/14/2022?9:59:10?AM END OF DOCUMENT
--- OUTSIDE RECORDS SUMMARY | 2023-04-03 03:48 | XMS_ITS ---
Author Name Bryn Whitfield [facility] Address [address] [place] [id number] Phone [phone] Organization [facility] e, NA DOCUMENT DISCLAIMER Multiple document versions may exist, please be sure you review the latest version. The information in the [facility] Progress Note Document represents a providers documented clinical note containing certain health and medical information. It may not contain the complete medical history for the patient and should be independently verified. The represented time in the document is Eastern Time PROVIDER ROUNDING NOTE BASIC Patient:?Vianca?Mars,?1960,?62y,?F Dialysis?Location:?[facility] Attending?Right Of Way Maintenance Supervisor:?Beto?Russ Service?Date:?11/17/2022 Service?Provider:?Caprice?Roseann,?BULKING MACHINE OPERATOR I?met?face?to?face?with?the?patient?today. OVERVIEW The?patient?presented?with?ESRD?on?dialysis Primary?cause?of?renal?failure:?Type?2?diabetes?mellitus&#16 0;with?diabetic?chronic?kidney?disease Comments:?11/17/22 Elevated?blood?pressures,?puffy?face?and?eyes.?UFG?set? to?challenge?patient.?Tolerating?HD?well.?Will?continue?to&# 160;monitor?BP?and?patient?status. 11/13/22?-?Pt?woke?with?morning?having?pulled?out?her&#1 60;catheter?in?her?sleep.?New?cath?[facility]at?[facility]?this& #160;am.?Running?well?on?dialysis.?Stable?treatment.?Wound?v ac?remains?in?place?on?old?[facility]?site,?pt?states?it is?healing?well.? 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 ?Now?on?cefazolin?IV.?Will?check?on?duration.?12/08&#160 ;stop?date?listed?on?d/c?summary LAST?HOSPITALIZATION Discharge?Diagnosis:?L08.9?Local?infection?of?the?skin?and&# 160;subcutaneous?tissue,?unspecified Admission?Date?10/25/22 Discharge?Date?11/04/22 DIALYSIS?PRESCRIPTION ??IHD?3x?Week?Start?date:?08/04/22 ??Dialyzer:?180NRe?Optiflux ??BFR:?450 ??DFR:?Manual?500 ??Potassium:?2.0 ??Sodium:?135 ??EDW:?81.5 ??Duration:?4:00 ??Calcium:?2.5 ??Bicarb:?35 ??Rx?updated?on:?08/03/2022 TREATMENT?ASSESSMENT BP?Stand?Pre ??11/15/2022:?197/87 ??11/13/2022:?195/89 BP?Sit?Pre ??11/15/2022:?200/87 ??11/13/2022:?168/87 ??11/10/2022:?174/90 BP?Stand?Post ??11/15/2022:?175/98 ??11/13/2022:?183/90 ??11/10/2022:?132/105 BP?Sit?Post ??11/15/2022:?165/96 ??11/13/2022:?185/79 ??11/10/2022:?172/92 Tx?Duration ??11/15/2022:?4:02 ??11/13/2022:?3:38 ??11/10/2022:?4:00 Missed?Treatments 0?-?last?30?days 0?-?last?60?days FLUID?ASSESSMENT EDW?(kg) ??11/15/2022:?81.5 ??11/13/2022:?81.5 ??11/10/2022:?81.5 Weight?Pre?(kg) ??11/15/2022:?82.9 ??11/13/2022:?82.5 ??11/10/2022:?84.9 Weight?Post?(kg) ??11/15/2022:?81.1 ??11/13/2022:?81.9 ??11/10/2022:?81.5 PWV?(kg) ??11/15/2022:?-0.4 ??11/13/2022:?0.4 ??11/10/2022:?0.0 UF?Rate?(mL/kg/hr) ??11/15/2022:?5.5 ??11/13/2022:?2 ??11/10/2022:?10.4 ADEQUACY?ASSESSMENT spKt/V,?URR ??09/25/2022:?1.93,?80.0 ??08/21/2022:?1.62,?74.0 ??07/24/2022:?1.84,?78.0 ACCESS?ASSESSMENT ??Access?Type:?AVGraft ??Access?SubType:?Synthetic?-?Buhl?Acuseal ??Access?Status:?Active?(In?Use)?-?08/27/2020 ??Access?Location:?Right?Upper?Arm ??Created:?06/15/2020 Flow ??10/04/2022:?1047 ??08/23/2022:?1048 ??08/02/2022:?1240 ANEMIA?ASSESSMENT HGB,?TSAT ??11/13/2022:?8.6,?- ??11/06/2022:?9.4,?26.0 ??10/16/2022:?6.8,?- ?? Ferritin ??11/06/2022:?1000.0 ??10/11/2022:?1302.0 ??08/21/2022:?907.0 Mircera,?IVP?(mcg) ??11/10/2022:?225 ??10/18/2022:?200 ??10/13/2022:?225 BMM?ASSESSMENT Phosphorus,?Calcium ??11/13/2022:?-,?8.2 ??11/06/2022:?3.8,?8.2 ??10/11/2022:?3.0,?9.0 ?? PTH,?Intact ??11/06/2022:?323.0 ??10/11/2022:?351.0 ??09/25/2022:?227.0 Vitamin?D?(Calcitriol)?Oral?(mcg) ??11/15/2022:?0.25 ??11/13/2022:?0.25 ??11/10/2022:?0.25 NUTRITION?ASSESSMENT Albumin,?Potassium ??11/13/2022:?3.7,?3.9 ??11/06/2022:?3.7,?5.8 ??10/11/2022:?-,?4.0 ?? eNPCR ??09/25/2022:?1.27 ??08/21/2022:?1.07 ??07/24/2022:?0.84 DIAGNOSIS Chief?Complaint:?N18.6?End?stage?renal?disease Patient?data?updated?11/17/2022?at?9:22?AM Signed?By:?Asmita-Baylee,?Caprice,?BULKING MACHINE OPERATOR??on?11/17/2022?9:26:09?AM END OF DOCUMENT
--- OUTSIDE RECORDS SUMMARY | 2023-04-03 04:06 | XMS_ITS | Patient Health Record ---
Author Name Unknown [facility] Address [address] [place] [address] Care Team Providers Care Employer Relations Representative Name Role Phone [employer] Primary Care Provider Unavailab Shanae Muller Unavailable [phone] ALLERGIES Allergen (clinical drug ingredient) Drug/Non Drug Allergy documented on EMR Reaction Allergy Type Onset Date Status absolute contraindication for MRI (uncoded) headache Allergy Active General Anesthia (uncoded) Unknown Allergy Active Latex Latex (uncoded) hives Allergy Acti ve Novcaine (uncoded) hives Allergy A ctive Vaccine product containing Rabies lyssavirus antigen (medicinal product) Rabbies Vaccine (uncoded) Unknown Allergy Active Substance with sulfonamide structure and antibacterial mechanism of action (substance) Sulfa (uncoded) Unknown Allergy Active Tetanus Vaccine and Toxoid (uncoded) Unknown Allergy Active venlafaxine venlafaxine (uncoded) Unknown Allergy Active fosphenytoin fosphenytoin (uncoded) Unknown Allergy Active nicotine Nicoderm (uncoded) rash, hives Allergy Active phenytoin Phenytoin Sodium, Prompt (uncoded) Unknown Allergy Active varenicline varenicline (uncoded) Unknown Allergy Active fesoterodine fesoterodine (uncoded) hives Allergy Active acetaminophen / codeine Acetaminophen-Codeine Unknown Drug Allergy Active amitriptyline Amitriptyline HCl Unknown Drug Allergy Active aripiprazole ARIPiprazole Unknown Drug Allergy A ctive bupropion BuPROPion HCl Unknown Drug Allergy Act vangie celecoxib Celecoxib Unknown Drug Allergy Active citalopram Citalopram Hydrobromide hives Drug Allergy Active diazepam DiazePAM Unknown Drug Allergy Active valproate Divalproex Sodium Unknown Drug Allergy Active duloxetine DULoxetine HCl Unknown Drug Allergy A ctive escitalopram Escitalopram Oxalate Unknown Drug Allergy Active fluoxetine FLUoxetine HCl Unknown Drug Allergy A ctive gabapentin Gabapentin severe dizziness, runs, vomiting Drug Allergy Active ibuprofen Ibuprofen headache, nausea Drug Allergy Active Keflex stomach upset, Diarrhea Drug Allergy Active lidocaine Lidocaine hives Drug Allergy Active paroxetine PARoxetine HCl Unknown Drug Allergy A ctive PredniSONE Unknown Drug Allergy Active quetiapine QUEtiapine Fumarate Unknown Drug Allergy Active risperidone RisperiDONE Unknown Drug Allergy Act vangie sertraline Sertraline HCl hives Drug Allergy A ctive thiothixene Thiothixene Unknown Drug Allergy Act vangie topiramate Topiramate Unknown Drug Allergy Activ e trazodone TraZODone HCl Unknown Drug Allergy Act vangie REASON FOR REFERRAL No Information MEDICATIONS Medication SIG (Take, Route, Frequency, Duration) Notes Start Date End Date Status Amoxicillin 500 mg 1 tab(s) orally every 8 hours for 10 day(s) 05/23/2017 Active ACETAMINOPHEN 500 mg 2 tab(s) orally every 6 hours STOP*please review for potential update for e-prescription and drug interaction check* Active LORazepam 0.5 mg 1 tab(s) orally 3 times a day Unknown NovoLOG FlexPen 100 units/mL 0 subcutaneously Active LANTUS SOLOSTAR PEN 100 units/mL 0 subcutaneously STOP*please review for potential update for e-prescription and drug interaction check* Active SOCIAL HISTORY Tobacco Use: Social History Observation Description Date Details (start date - stop date) Current Smoker NA - NA Sex Assigned At : Social History Observation Description Sex Assigned At Unknown SMOKING Question Answer Notes Are you a: current smoker Are you interested in quitting? Not ready to aleks t PROBLEMS Problem Type ICD Code Onset Dates Problem Status W/U Status Risk SNOMED Code Notes Problem Type 2 diabetes mellitus with diabetic neuropathy, unspecified (E11.40) Active confirmed 09936873 Problem Type 2 diabetes mellitus with hyperglycemia (E11.65) Active confirmed [id number] Problem Type 2 diabetes mellitus with other skin complications (E11.628) Active confirmed 38638770 Problem Type 2 diabetes mellitus with unspecified complications (E11.8) Active confirmed 26419559 Problem nursing home current use of insulin (Z79.4) Active confirmed 618220772 PLAN OF TREATMENT No Information Insurance Providers Payer Name Payer Address Payer Phone Subscriber Number Group Number Insured Name Patient Relationship to Insured Coverage Start Date Coverage End Date MEDICARE [address] [place], [place] [id number] NALDO NUNEZ Self - patient is the insured [place] [employer] [place], [place] [id number] NALDO NUNEZ Self - patient is the insured SELF [place]Y [place] [address] [place] [address] NALDO NUNEZ Self - patient is the insured MEDICAL (GENERAL) HISTORY Medical History History ICD Code cellulitis of toe on left foot poorly controlled type 2 diabetes mellit us with circulatory disorder uncontrolled diabetes mellitus paranoia meralgia paresthetica, right lower limb Tabacco use disorder mental health disorder MTHFR mutation Adult BMI > 30 Type 2 diabetes mellitus with hyperglyce anthony congenital single kidney dyskinesia, tardive pacemaker sinus node dysfunction peripheral vertigo Surgical History Surgery Date(Month/Year) 1985 Pacemaker 2004 Hospitalization History Reason Date(Month/Year)
[2023-04-03 11:50] LABS: Abs Immature Grans 0.01 10^3/uL (0.0-0.06); Absolute Basophil Count 0.02 10^3/uL (0.0-0.2); Absolute Eosinophil Count 0.03 10^3/uL (0.0-0.7); Absolute Lymphocyte Count 0.56 10^3/uL (1.2-3.4); Absolute Neutrophil Count 3.45 10^3/uL (1.2-6.7); Basophils % 0.5; Eosinophils % 0.7; HCT 30.7 % (36.0-46.0); HGB 9.9 g/dL (11.2-15.7); Immature Grans % 0.2; Lymphocytes % 12.8; MCH 31.2 pg (27.0-33.0); MCHC 32.2 % (32.0-36.0); MCV 97 fL (80-95); MPV 9.9 fL (8.0-11.0); Monocytes % 6.9; Neutrophils % 78.9; Platelet Count 135 10^3/uL (130-400); RBC 3.17 10^6/uL (3.93-5.22); RDW 14.3 % (11.7-14.6); RDW-SD 50.8 fL; WBC 4.37 10^3/uL (4.4-10.8)
[2023-04-03 12:01] LABS: Hemoglobin A1C 4.6 % (<5.7)
[2023-04-03 12:29] LABS: ALT 31 U/L (14-59); AST 25 U/L (15-37); Albumin 3.8 g/dL (3.4-5.0); Alkaline Phosphatase 228 U/L (46-116); Anion Gap 11.6 mmol/L (3-11); Bilirubin, Total 0.6 mg/dL (0.2-1.0); CO2 26.4 mmol/L (21.0-32.0); Calcium 8.6 mg/dL (8.5-10.1); Calculated LDL 94 mg/dL (<100); Chloride 92 mmol/L (98-107); Cholesterol 158 mg/dL (<200); Estimated GFR 7.32 (mL/min/1.73m2); Glucose 134 mg/dL (74-106); HDL Cholesterol 37 mg/dL (40-60); Potassium 5.8 mmol/L (3.5-5.1); Sodium 130 mmol/L (136-145); Total Protein 7.3 g/dL (6.4-8.2); Triglyceride 136 mg/dL (<150)
[2023-04-03 12:47] LABS: CREATININE 6.1 mg/dL (0.55-1.02)
[2023-04-03 12:48] LABS: BUN 81 mg/dL (7-18)
== END 2023-04-03 03:46 | disposition home or self-care (01) ==
LOC: LBO 03:45
PROVIDERS: Surgery; Absent Provider Nurse Practitioner; PCP Nurse Practitioner; Referring Provider Nurse Practitioner; Visit Provider Nurse Practitioner
DX: E11.42 Type 2 diabetes mellitus with diabetic polyneuropathy (principal); E72.12 Methylenetetrahydrofolate reductase deficiency; E78.5 Hyperlipidemia, unspecified; F17.210 Nicotine dependence, cigarettes, uncomplicated; F32.9 Major depressive disorder, single episode, unspecified; F99 Mental disorder, not otherwise specified; G24.01 Drug induced subacute dyskinesia; H43.11 Vitreous hemorrhage, right eye; I10 Essential (primary) hypertension; I49.5 Sick sinus syndrome; N18.4 Chronic kidney disease, stage 4 (severe); N18.6 End stage renal disease; R60.0 Localized edema
CPT/HCPCS: 36415; 80053; 80061; 83036; 85025

== ENCOUNTER → 2023-04-11 08:18 | Outpatient (BNVA) | payer MEDICARE, MEDICAID, SELFPAY | PROVIDERS: PCP Nurse Practitioner; Referring Provider Nurse Practitioner; Visit Provider Physician Assistant | DX: Z95.0 Presence of cardiac pacemaker (principal); Z99.2 Dependence on renal dialysis | CPT/HCPCS: 93279 ==

== ENCOUNTER 2023-04-18 10:48 | Emergency (ER) | payer MEDICARE, MEDICAID, SELFPAY ==
[2023-04-18] VITALS (37 sets, daily range): BP systolic 101–174; BP diastolic 42–104; PULSE 48–57; RESP 10–18; TEMP 36.8; O2SAT 97
--- NOTE | 2023-04-18 10:45 | RT.EKG_ITS ---
APPROVED REPORT Exam: Resting ECG Reason for Exam: Altered Patient Location: E HR:57 bpm ECG Measurements Heart Rate 57 AXIS NM 86 P 0 QRSd 204 QRS -80 QT 579 T 89 QTc 565 Conclusion Ventricular-paced rhythm ventricular paced rhythm at a rate of 57 with interventricular conduction delay and a QRS of 204 ms w ith significant QTc prolongation at 565 ms QRS has widened and QTc has lengthened compared to prior.
--- NOTE | 2023-04-18 10:45 | DI.RAD_ITS ---
Exam(s) XR SHOULDER RT COMPLETE 2+V EXAM: XR SHOULDER RT COMPLETE 2+V CLINICAL HISTORY: Right shoulder bruise. TECHNIQUE: 2D digital imaging was performed. Five views. COMPARISON: No exams were available for comparison FINDINGS: BONES: No acute fracture is present. No bony destructive lesion is seen. JOINTS: No dislocation present. Minimal degenerative changes SOFT TISSUE: Normal. IMPRESSION: No acute abnormality DATA REPOSITORY: RADIATION DOSE DELIVERED:
--- NOTE | 2023-04-18 10:45 | DI.RAD_ITS ---
Exam(s) XR ELBOW LT COMPLETE EXAM: XR ELBOW LT COMPLETE CLINICAL HISTORY: Left elbow bruise. TECHNIQUE: 2D digital imaging was performed. Three views. COMPARISON: CR XR elbow LT complete from 08/26/2018 FINDINGS: BONES: No acute fracture is present. No bony destructive lesion is seen. JOINTS: The elbow is normally aligned. No joint effusion is seen. SOFT TISSUE: Normal. IMPRESSION: Unremarkable radiographs of the left elbow. DATA REPOSITORY: RADIATION DOSE DELIVERED:
--- NOTE | 2023-04-18 10:56 | DI.RAD_ITS ---
Exam(s) XR CHEST 1V IN DI DEPT EXAM: XR CHEST 1V IN DI DEPT CLINICAL HISTORY: Altered TECHNIQUE: 2D digital imaging was performed. COMPARISON: CR CHEST 2 VIEWS PA,LAT from 08/31/2015 CR XR CHEST 2V PA LATERAL from 12/27/2017 CR,XR XR PORTABLE CHEST AP from 07/17/2019 CR XR PORTABLE CHEST AP from 05/23/2021 CR,XR XR PORTABLE CHEST AP from 06/29/2022 CR,XR XR CHEST 2V PA LATERAL from 11/25/2022 FINDINGS: Central venous catheter again noted. LUNGS: Linear atelectasis noted at the right lung base. No pleural abnormality seen. HEART: Normal size. Mildly enlarged. Pacemaker with 3 leads again noted. There are fractures of 2 of the leads which was not present on the 2016 exam was present on later exams.. AORTA: Normal diameter. BONES: Unremarkable for age. Soft tissues: Unremarkable. IMPRESSION: No acute findings. DATA REPOSITORY: RADIATION DOSE DELIVERED:
--- NOTE | 2023-04-18 10:58 | ED.GENADUL_ITS ---
Discharge Plan Disposition Patient Disposition: Home Discharge Details Clinical Impression: Dialysis complication, Hypotension Primary Care Provider: Rosaura Fragoso ED Provider: Elgin Pat Home Meds and New Rx's Prescriptions: Continued mirtazapine 15 mg tablet 15 mg PO QHS sevelamer carbonate [Renvela] 800 mg tablet 800 mg PO TID Rx Instructions: must administer with a meal/food acetylcysteine [NAC] 600 mg capsule 600 mg PO BID acetaminophen [Acetaminophen Extra Strength] 500 mg tablet 1,000 mg PO BID PRN (Reason: fever or pain) insulin glargine [Basaglar KwikPen U-100 Insulin] 100 unit/mL (3 mL) insulin pen 25 unit subcut QAM Qty: 21 3RF (DME) Blood Glucose Test strip See Dose Instructions .ROUTE .MEDSUPPLY Qty: 300 3RF Dose Instruction: As directed Rx Instructions: Test TID (DME) Adult Briefs - Large misc See Dose Instructions .ROUTE .MEDSUPPLY Qty: 150 12RF Dose Instruction: As directed Rx Instructions: Change as directed (DME) shower chair with arms, with slide to tub Large See Rx Instructions .Route .MEDSUPPLY Qty: 1 0RF Rx Instructions: As directed (DME) raised toilet seat oblong toilet See Rx Instructions .Route .MEDSUPPLY Qty: 1 0RF Rx Instructions: As directed omeprazole 40 mg capsule,delayed release(DR/EC) 40 mg PO DAILY Qty: 90 3RF lamotrigine 100 mg tablet 100 mg PO BID Patient Comments: Increased to bid at [place] d/c lorazepam 1 mg tablet 1 mg PO HS Patient Comments: may also take 0.5mg once daily if needed. (reported progress note [facility] 05/02/18) benztropine 0.5 mg tablet 0.5 mg PO HS Rx Instructions: Note dated 02/13/19 [facility]gc multivitamin [Daily Multi-Vitamin] Tablet 1 tab PO DAILY Qty: 90 3RF cyanocobalamin (vitamin B-12) [Vitamin B-12] 500 mcg tablet 500 mcg PO DAILY nystatin 100,000 unit/gram powder 1 applic topical BID Qty: 60 1RF Rx Instructions: apply liberal amount to affected areas of rash to breasts until resolved Vraylar 1.5 mg capsule 1.5 mg PO DAILY Rx Instructions: as of 7/7/21 w/ permission from Dr. Pedersen via [facility] [place] insulin aspart U-100 [Novolog FlexPen U-100 Insulin] 100 unit/mL (3 mL) insulin pen See Rx Instructions subcut AC Qty: 15 3RF Rx Instructions: 2-10u based on sliding scale before meals. aspirin 81 mg tablet,delayed release (DR/EC) See Rx Instructions .ROUTE .COMPLEX Qty: 90 3RF Dose Instruction: TAKE ONE TABLET BY MOUTH DAILY Rx Instructions: TAKE ONE TABLET BY MOUTH DAILY (DME) Commode See Rx Instructions .Route .MEDSUPPLY Qty: 1 0RF Rx Instructions: Raised toilet seat not safe for the patient. carvedilol 12.5 mg tablet See Rx Instructions .ROUTE .COMPLEX Qty: 180 3RF Dose Instruction: TAKE ONE TABLET BY MOUTH TWO TIMES A DAY WITH MEAL OR FOOD INCREASED BY [facility] 05/26/21 Rx Instructions: TAKE ONE TABLET BY MOUTH TWO TIMES A DAY WITH MEAL OR FOOD INCREASED BY [facility] 05/26/21 meclizine 12.5 mg tablet 12.5 mg PO TID PRN (Reason: dizziness) Qty: 60 0RF polyethylene glycol 3350 17 gram/dose powder 17 g PO DAILY PRN (Reason: constipation) sennosides-docusate sodium [Senna with Docusate Sodium] 8.6-50 mg tablet 2 tab-cap PO BID PRN (Reason: constipation) fosinopril 40 mg tablet 40 mg PO BID lorazepam 0.5 mg tablet 0.5 mg PO Q6H PRN (Reason: anxiety) amlodipine 10 mg tablet See Rx Instructions .ROUTE .COMPLEX Qty: 90 3RF Dose Instruction: TAKE ONE TABLET BY MOUTH EVERY DAY Rx Instructions: TAKE ONE TABLET BY MOUTH EVERY DAY Eliquis 5 mg tablet See Rx Instructions .ROUTE .COMPLEX Qty: 90 1RF Dose Instruction: TAKE 1/2 TABLET BY MOUTH TWO TIMES A DAY Rx Instructions: TAKE 1/2 TABLET BY MOUTH TWO TIMES A DAY (DME) pen needle, diabetic [BD Vane 2nd Gen Pen Needle] 32 gauge x 5/32 needle See Rx Instructions .ROUTE .COMPLEX Qty: 100 3RF Dose Instruction: USE FOUR TIMES A DAY Rx Instructions: USE FOUR TIMES A DAY nystatin 100,000 unit/gram powder 1 applic topical BID Qty: 30 3RF cefadroxil 500 mg capsule 1,000 mg PO .3x/week Rx Instructions: total of 180 days atorvastatin 40 mg tablet See Rx Instructions .ROUTE .COMPLEX Qty: 90 3RF Dose Instruction: TAKE ONE TABLET BY MOUTH EVERY DAY Rx Instructions: TAKE ONE TABLET BY MOUTH EVERY DAY ondansetron 4 mg tablet,disintegrating 4 mg PO Q8H PRN (Reason: nausea and vomiting) Qty: 30 0RF Discharge Instructions Additional Instructions: You were seen in the emergency department for your low blood pressure. Your blood pressure improved. If you develop fevers difficulty breathing or had any other concerns please return to the emergency department. Please go to your dialysis session as previously scheduled in 2 days. Please return to the emergency department if you develop difficulty breathing nausea or vomiting. Discharge Data Discharge Date/Time-TO BE ENTERED AT DEPARTURE: 04/18/23 15:22 HPI General Date/Time Provider Initiated Documentation: 04/18/23 10:55 . HPI Narrative: MDM This is an altered 62-year-old dialysis dependent female with bruising concerning for possibility of of intracranial hemorrhage for which patient will undergo CT. Patient was hypotensive with dialysis so given renal failure with bradycardia on an AV светлана audi BRASH syndrome is certainly a possibility so we will obtain ECG and labs to assess for hyperkalemia. Patient has a history of a pacemaker and certainly dysrhythmia is a concern after ECG will obtain interrogation of Medtronic pacemaker. Given hypotension 2 sets of blood cultures and treat empirically with ceftriaxone. Will also obtain lactate. Will assess for any acute electrolyte abnormalities. Will obtain a portable chest x-ray. No fevers no nuchal rigidity to suggest meningitis so we will defer lumbar puncture at this point in time. Patient does still make urine so urinary tract infection is certainly a possibility. Left subclavian line does not appear infected. Patient has no focal neurological deficits to suggest CVA so I do not feel that the patient is a tPA candidate nor requires an MRI. Will cover for sepsis given hypotension. No significant proptosis to suggest orbital cellulitis. No tonic-clonic activity to suggest seizure. No pain out of proportion to suggest necrotizing soft tissue infection. Given bruise to right shoulder and left elbow will obtain plain films. No recent chiropractic manipulation to suggest cervical arterial dissection. No significant lower extremity swelling to suggest acute CHF. Chart review at [facility] indicates the patient is followed by ID and that she takes cefadroxil 1 g p.o. 3 times a week on her dialysis days. 11:07 AM ECG showing ventricular paced rhythm at a rate of 57 with interventricular conduction delay and a QRS of 204 ms with significant QTc prolongation at 565 ms concerning for hyperkalemia for which patient will receive 2 g calcium chloride along with 5 units IV insulin with D5 NS infusion. 11:30 a.m. Reassuring negative lactate. 11:40 AM CBC shows mild leukopenia similar to prior. Mild normocytic anemia similar to prior. No thrombocytopenia. 12:15 PM Negative troponin. Paged. Negative ethanol. proBNP mildly elevated but markedly improved compared to prior. Comprehensive metabolic panel showing uremia with a BUN of 93. CKD no superimposed BENEDICT. Potassium normal. Mild hypocalcemia. CK within normal limits. 1:12 PM COVID influenza RSV all negative. Pacemaker to be interrogated now. 1:24 PM I reassessed the patient and she was alert and oriented to person place and time with a GCS of 15. 1:54 PM Urinalysis nitrite negative not consistent with UTI. 2:15 PM Chest x-ray read as negative. Radiographs of left elbow right shoulder read as negative. CT head with no acute abnormalities. Negative C-spine. I spoke with Amando Abraham from [employer] who reported that the patient had had no acute events. She is currently completing a p.o. trial. 2:50 PM I spoke with Dr. Beto Pedersen at [facility], the patient's veneer supervisor. He reported that she would likely be okay to be discharged for the next 2 days with outpatient dialysis follow-up on Sunday of this week. He was not concerned about the patient's elevated BUN. Patient had repeat negative troponin. She continues to have a GCS of 15. She is tolerating p.o. She has not been hypotensive. Will proceed with empiric trial of discharge with expectant outpatient management. Chronic conditions affecting the care of the patient: Dialysis dependent History obtained from an outside historian: Paramedics External record review: [facility] EMR Diagnostic interpretations performed by me: Per my independent interpretation chest x-ray shows: Per my independent interpretation EKG shows:ventricular paced rhythm at a rate of 57 with interventricular conduction delay and a QRS of 204 ms with significant QTc prolongation at 565 ms concerning for hyperkalemia Medications: Ceftriaxone calcium dextrose insulin Social determinants of health affecting disposition: N/A Management discussed with: [facility] nephrology Treatment/interventions considered: Hospitalization but deferred Response to therapies provided: No recurrent hypotension nor confusion following treatment in the ED HPI This is a 62-year-old dialysis dependent female arrived to the emergency department via paramedics in the setting of low blood pressure. Patient went unresponsive at dialysis and was found to be hypotensive with a blood pressure of 87/55 for which she received a 200 cc bolus with improvement in her blood pressure for paramedics to 104/69. Her fingerstick blood glucose was 136. She had approximately 1 hour of her dialysis completed. She had a normal room air saturation. She reports having a headache and dizziness. Patient denies history of falls. She does note that occasionally she occasionally has swelling of her eyes. She has a Medtronic pacemaker. Unable to obtain additional history secondary to the acuity of the patient's presentation. Exam General: Chronically ill-appearing in no acute distress speaking in complete sentences. Head: Normocephalic, atraumatic. Eye:[Pupils equal, round reactive to light.] Extraocular eye movements intact. No conjunctival injection. No scleral icterus. Mild Gabriele orbital edema right greater than left. Ear, nose, mouth, throat: Grossly normal inspection. Normal voice, handling secretions normally. Neck: Trachea midline. Midline cervical spinal tenderness. Cardiovascular: Well-perfused distal extremities. Bradycardic Respiratory: Nonlabored respiration. Clear lungs. Chest wall: Left subclavian port in place with no significant surrounding erythema. Back: No step-offs or deformities. No midline thoracic nor lumbar spinal tenderness. Gastrointestinal: Nondistended abdomen. Soft nontender. Musculoskeletal: No significant lower extremity pitting edema. Moving all 4 extremities spontaneously. Skin: Normal for age and race, grossly normal temperature and turgor. No acute rash. Neurologic: Alert and responsive. Moves all 4 extremities. GCS 14: E4, V4, M6 Related Data Home Medications Medication Instructions Recorded Confirmed blood sugar diagnostic (Blood #300 ea 05/06/18 04/11/23 Glucose Test strips) lamotrigine 100 mg tablet 100 mg PO BID 05/09/18 04/11/23 lorazepam 1 mg tablet 1 mg PO HS 05/09/18 04/11/23 diaper,brief,adult,disposable #150 ea 07/25/18 04/11/23 (Adult Briefs - Large) benztropine 0.5 mg tablet 0.5 mg PO HS 03/06/19 04/11/23 multivitamin (Daily Multi-Vitamin 1 tab PO DAILY #90 tabs 05/15/19 04/11/23 tablet) cyanocobalamin (vitamin B-12) 500 500 mcg PO DAILY 08/05/19 04/11/23 mcg tablet (Vitamin B-12) nystatin 100,000 unit/gram topical 1 applic topical BID #60 grams 02/04/20 04/11/23 powder acetylcysteine 600 mg capsule (NAC) 600 mg PO BID 02/11/20 04/11/23 mirtazapine 15 mg tablet 15 mg PO QHS 02/11/20 04/11/23 sevelamer carbonate 800 mg tablet 800 mg PO TID 02/11/20 04/11/23 (Renvela) acetaminophen 500 mg tablet 1,000 mg PO BID PRN fever or pain 07/06/20 04/11/23 (Acetaminophen Extra Strength) cariprazine 1.5 mg capsule 1.5 mg PO DAILY 10/27/20 04/11/23 (Vraylar) insulin glargine 100 unit/mL (3 25 unit (0.25 mL) subcut QAM #21 mL 05/18/22 04/11/23 mL) subcutaneous pen (Basaglar KwikPen U-100 Insulin) insulin aspart U-100 100 unit/mL See Rx Instructions subcut AC #15 07/03/22 04/11/23 (3 mL) subcutaneous pen (Novolog mL FlexPen U-100 Insulin aspart) omeprazole 40 mg capsule,delayed 40 mg PO DAILY #90 caps 07/13/22 04/11/23 release raised toilet seat #1 ea 07/13/22 04/11/23 shower chair with arms, with slide #1 ea 07/13/22 04/11/23 to tub aspirin 81 mg tablet,delayed See Rx Instructions .Route 07/20/22 04/11/23 release .COMPLEX #90 tabs Commode #1 ea 08/21/22 04/11/23 carvedilol 12.5 mg tablet See Rx Instructions .Route 08/28/22 04/11/23 .COMPLEX #180 tabs meclizine 12.5 mg tablet 12.5 mg PO TID PRN dizziness #60 11/06/22 04/11/23 tabs polyethylene glycol 3350 17 17 g PO DAILY PRN constipation 11/06/22 04/11/23 gram/dose oral powder sennosides 8.6 mg-docusate sodium 2 tab-cap PO BID PRN constipation 11/06/22 04/11/23 50 mg tablet (Senna with Docusate Sodium) ondansetron 4 mg disintegrating 4 mg PO Q8H PRN nausea and 11/12/22 04/11/23 tablet vomiting #30 tabs amlodipine 10 mg tablet See Rx Instructions .Route 12/04/22 04/11/23 .COMPLEX #90 tabs fosinopril 40 mg tablet 40 mg PO BID 12/04/22 04/11/23 lorazepam 0.5 mg tablet 0.5 mg PO Q6H PRN anxiety 12/04/22 04/11/23 apixaban 5 mg tablet (Eliquis) See Rx Instructions .Route 12/18/22 04/11/23 .COMPLEX #90 tabs pen needle, diabetic 32 gauge x #100 ea 03/05/23 04/11/23 (BD Vane 2nd Gen Pen Needle) nystatin 100,000 unit/gram topical 1 applic topical BID under breasts 03/19/23 04/11/23 powder #30 grams cefadroxil 500 mg capsule 1,000 mg PO .3x/week 03/22/23 04/11/23 atorvastatin 40 mg tablet See Rx Instructions .Route 04/02/23 04/11/23 .COMPLEX #90 tabs Previous Rx's Medication Instructions Recorded blood sugar diagnostic (Blood #300 ea 05/06/18 Glucose Test strips) diaper,brief,adult,disposable #150 ea 07/25/18 (Adult Briefs - Large) multivitamin (Daily Multi-Vitamin 1 tab PO DAILY #90 tabs 05/15/19 tablet) nystatin 100,000 unit/gram topical 1 applic topical BID #60 grams 02/04/20 powder insulin glargine 100 unit/mL (3 25 unit (0.25 mL) subcut QAM #21 mL 05/18/22 mL) subcutaneous pen (Basaglar KwikPen U-100 Insulin) insulin aspart U-100 100 unit/mL See Rx Instructions subcut AC #15 03/13/23 (3 mL) subcutaneous pen (Novolog mL FlexPen U-100 Insulin aspart) omeprazole 40 mg capsule,delayed 40 mg PO DAILY #90 caps 07/13/22 release raised toilet seat #1 ea 07/13/22 shower chair with arms, with slide #1 ea 07/13/22 to tub aspirin 81 mg tablet,delayed See Rx Instructions .Route 07/20/22 release .COMPLEX #90 tabs Commode #1 ea 08/21/22 carvedilol 12.5 mg tablet See Rx Instructions .Route 08/28/22 .COMPLEX #180 tabs meclizine 12.5 mg tablet 12.5 mg PO TID PRN dizziness #60 11/06/22 tabs ondansetron 4 mg disintegrating 4 mg PO Q8H PRN nausea and 11/12/22 tablet vomiting #30 tabs amlodipine 10 mg tablet See Rx Instructions .Route 12/04/22 .COMPLEX #90 tabs apixaban 5 mg tablet (Eliquis) See Rx Instructions .Route 12/18/22 .COMPLEX #90 tabs pen needle, diabetic 32 gauge x #100 ea 03/05/23 (BD Vane 2nd Gen Pen Needle) nystatin 100,000 unit/gram topical 1 applic topical BID under breasts 03/19/23 powder #30 grams atorvastatin 40 mg tablet See Rx Instructions .Route 04/02/23 .COMPLEX #90 tabs Allergies Allergy/AdvReac Type Severity Reaction Status Date / Time aripiprazole [From Abilify] Allergy Severe tardive Verified 04/11/23 08:24 dyskinesia duloxetine HCl Allergy Severe Hives Verified 04/11/23 08:24 [From Cymbalta] oxycodone Allergy Severe Hives Verified 04/11/23 08:24 Sulfa (Sulfonamide Allergy Severe Skin Rash Verified 04/11/23 08:24 Antibiotics) acetaminophen [From Vicodin] Allergy Intermediate vomiting Verified 04/11/23 08:24 citalopram Allergy Intermediate HIVES Verified 04/11/23 08:24 fesoterodine Allergy Intermediate HIVES Verified 04/11/23 08:24 hydrocodone bitartrate Allergy Intermediate vomiting Verified 04/11/23 08:24 [From Vicodin] latex Allergy Intermediate Hives Verified 04/11/23 08:24 morphine Allergy Intermediate unknown Verified 04/11/23 08:24 rabies vaccine, human Allergy Intermediate Hives Verified 04/11/23 08:24 diploid cell [Rabies Vaccine,Human Diploid] Tetanus Vaccines and Toxoid Allergy Intermediate Swelling/Ed Verified 04/11/23 08:24 [Tetanus Vaccines & Toxoid] ghulam amitriptyline Allergy Unknown unknown Verified 04/11/23 08:24 bupropion HCl Allergy Unknown unknown Verified 04/11/23 08:24 [From Wellbutrin] celecoxib [From Celebrex] Allergy Unknown unknown Verified 04/11/23 08:24 diazepam [From Valium] Allergy Unknown unknown Verified 04/11/23 08:24 divalproex sodium Allergy Unknown unknown Verified 04/11/23 08:24 [From Depakote] escitalopram oxalate Allergy Unknown unknown Verified 04/11/23 08:24 [From Lexapro] fluoxetine HCl [From Prozac] Allergy Unknown unknown Verified 04/11/23 08:24 fosphenytoin sodium Allergy Unknown unknown Verified 04/11/23 08:24 [From Cerebyx] nicotine [From Nicoderm CQ] Allergy Unknown rash/hives Verified 04/11/23 08:24 paroxetine HCl [From Paxil] Allergy Unknown unknown Verified 04/11/23 08:24 phenytoin sodium Allergy Unknown unknown Verified 04/11/23 08:24 [From Dilantin] phenytoin sodium extended Allergy Unknown unknown Verified 04/11/23 08:24 [From Dilantin] prednisone Allergy Unknown unknown Verified 04/11/23 08:24 procaine HCl [From Novocain] Allergy Unknown unknown Verified 04/11/23 08:24 quetiapine Allergy Unknown unknown Verified 04/11/23 08:24 quetiapine fumarate Allergy Unknown Verified 04/11/23 08:24 [From Seroquel] risperidone [From Risperdal] Allergy Unknown Verified 04/11/23 08:24 sertraline Allergy Unknown Hives Verified 04/11/23 08:24 trazodone Allergy Unknown Verified 04/11/23 08:24 venlafaxine HCl Allergy Unknown Verified 04/11/23 08:24 [From Effexor] warfarin [From Coumadin] Allergy none Verified 04/11/23 08:24 listed on referral thiothixene [Thiothixene] AdvReac Severe Nausea Verified 04/11/23 08:24 topiramate AdvReac Intermediate Nausea Verified 04/11/23 08:24 gabapentin AdvReac Unknown Severe Verified 04/11/23 08:24 dizziness, runs; vomiting lidocaine AdvReac Unknown Nausea Verified 04/11/23 08:24 ibuprofen AdvReac headache Verified 04/11/23 08:24 and nausea melatonin AdvReac nightmares Verified 04/11/23 08:24 varenicline tartrate AdvReac Psychosis Verified 04/11/23 08:24 [From Chantix] ABSOLUTE CONTRAINDICATION AdvReac Severe Headache Uncoded 04/11/23 08:24 FOR MRI (disconnected RV pacer lead) general anesthia AdvReac Unknown Uncoded 04/11/23 08:24 General Stated Complaint: AMS/LOC ASIM: 2 PFSH All Active Problems (Updated 04/18/23 @ 14:58 by Elgin Pat MD) Hypotension (Acute) Dialysis complication (Acute) Bacteremia (Acute ~10/2022) Intra vascular infection, AV graft infection - treating wit IV abx when at dialysis Anemia (Chronic) Atherosclerosis of artery of both lower extremities (Acute) 06/08/22 Rd Uriarte DPM - podiatry visit Reticulocytopenia (Acute) Elevated ferritin (Acute) Dialysis patient (Acute) Fracture of ramus of left pubis (Acute) Hyperlipidemia (Acute) 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 11/15/21 Decision from Transplant Eval that pt is not a candidate for kidney transplant Dysuria (Acute) Memory deficit (Acute) Solitary left kidney (Acute) Decreased GFR (Acute) Viral syndrome (Acute) Bilateral leg edema (Acute) Colonoscopy refused (Acute) Urinary incontinence (Acute 02/11/15) Urge incontinence (Chronic) Elevated cholesterol (Chronic) Fracture of radial neck, left, closed (Acute) H/O endarterectomy (Chronic) Non-adherence to medical treatment (Acute) Type 2 diabetes mellitus (Chronic) Sinus bradycardia (Chronic) S/p pacemaker. Generator change 12/2013 [facility] (Yariel [facility]). Pocket revision & new RV lead 10/2014 [facility]. Postmenopausal (Chronic) LMP ~2004 Paranoia (Chronic 12/19/16) Meralgia paresthetica, right lower limb (Chronic 11/05/15) Dr. 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 Congenital single kidney (Chronic 03/08/15) by xray from [facility] 03/17/09 in scanned records Adult BMI > 30 (Chronic 06/07/15) Medical History Toe pain, bilateral 06/08/22 Rd Uriarte DPM Onychomycosis 06/08/22 Rd Uriarte DPM Type 2 diabetes mellitus with diabetic polyneuropathy Depression End stage renal disease 07/21/20 [facility] [place] Hemodialysis patient Hypertension (~06/20/19) Goal <130/80 [facility] Seizure Sinus node dysfunction (10/22/14) Pacemaker (10/22/14) for bradycardia and sinus node dysfunction DDD pacer 2004 in [place] Medtronic dual lead programmed VVI - PG replaced 01/01/2014 [facility] Old RV lead abandoned PTSD (post-traumatic stress disorder) (05/28/17) PAD (peripheral artery disease) (08/13/17) Stroke R parietal; asymptomatic; Bipolar 1 disorder Surgical History S/P angioplasty (01/30/18) left femoral endarterectomy and patch angioplasty, Aortogram, Over the wire Left ABF graft thrombectomy, Open ledt ABF thrombectomy, left ABF graft stent (VBX 8x39) S/P aortobifemoral bypass surgery aortobifemoral bypass (09/07/17) [facility] vascular. August 2017 Pacemaker (~2004) [place], [place] section (~1985) Family History Mother No problems noted. Father No problems noted. Sister No problems noted. Social History Smoking/Tobacco Use Status: Former Tobacco Use Quit Date: 03/03/21 Pack-years: 37 Smoking risk assessment performed?: Yes Alcohol Intake: never Drug use: Never Substance use type: does not use Adopted: No Housing: house Number of Children: 1 Do you need help understanding health information?: Always current occupation: disabliilty What type of physical activity do you participate in: walking Duration: 15-30 minutes/day Frequency: 3-4 times per week Do you feel safe at home: Yes Do you feel safe in your relationship?: Yes Additional Social history: lives with care provider - FELIX BEASLEY 04/18/23 Course Vital Signs Vital signs: Vital Signs Pulse 54 L 04/18/23 10:53 Respiratory Rate 16 04/18/23 10:53 Blood Pressure 125/51 L 04/18/23 10:53 Pulse Oximetry 97 04/18/23 10:53 Pulse 54 L 04/18/23 10:53 Respiratory Rate 16 04/18/23 10:53 Blood Pressure 125/51 L 04/18/23 10:53 Pulse Oximetry 97 04/18/23 10:53 Oxygen Delivery Method Room Air 04/18/23 10:53 Oxygen Flow Rate 0 04/18/23 10:53 Pain Level 6 04/18/23 10:53 Comment 6/10 pain to right shoulder 04/18/23 10:53
[2023-04-18 11:27] LABS: Abs Immature Grans 0.01 10^3/uL (0.0-0.06); Absolute Basophil Count 0.01 10^3/uL (0.0-0.2); Absolute Eosinophil Count 0.03 10^3/uL (0.0-0.7); Absolute Lymphocyte Count 0.22 10^3/uL (1.2-3.4); Absolute Monocyte Count 0.23 10^3/uL (0.1-0.8); Absolute Neutrophil Count 3.24 10^3/uL (1.2-6.7); Basophils % 0.3; Eosinophils % 0.8; HGB 9.6 g/dL (11.2-15.7); Immature Grans % 0.3; Lactate 0.8 mmol/L (0.6-1.4); Lymphocytes % 5.9; MCH 31.6 pg (27.0-33.0); MCHC 34.3 % (32.0-36.0); MCV 92 fL (80-95); MPV 10.1 fL (8.0-11.0); Monocytes % 6.1; Neutrophils % 86.6; Platelet Count 135 10^3/uL (130-400); RBC 3.04 10^6/uL (3.93-5.22); RDW 13.2 % (11.7-14.6); RDW-SD 44.6 fL; WBC 3.74 10^3/uL (4.4-10.8)
--- NOTE | 2023-04-18 11:30 | DI.CT_ITS ---
Exam(s) CT HEAD CERVICAL SPINE WO EXAM: CT HEAD CERVICAL SPINE WO CLINICAL HISTORY: Altered with neck pain. TECHNIQUE: Imaging Protocol: Axial computed tomography images with coronal and sagittal reformatted images were created and reviewed COMPARISON: CT CT HEAD WO from 11/25/2022 FINDINGS: Head CT Ventricles and Extra axial spaces: Dilated. No change from prior. Hemorrhage: None. Cerebral parenchyma: No evidence of mass or acute infarct. Atrophy. White matter changes of small v essel disease. Old right parietal infarct. Midline shift: None. Brainstem/Cerebellum: Normal. Calvarium: Normal. Visualized Paranasal sinuses/Mastoids: Clear. Soft tissues: Unremarkable. Cervical Spine CT BONES: Vertebral body heights are maintained. Alignment is normal. There is no evidence of acute frac ture. Degenerative disc changes and facet degenerative changes are seen at C1-2.. SOFT TISSUES: No paraspinal hematoma. The airway appears intact. No pneumothorax is seen at the lung apices. IMPRESSION: Head CT: Old right parietal infarct. No acute abnormality. C-spine CT: Degenerative changes, no acute abnormality. RADIATION DOSE DELIVERED: Total DLP DATA REPOSITORY: All CT scans at this facility are submitted to the National Radiology Data Registry (NRDR) Dose Index Registry (DIR) with the [employer] (ACR). RADIATION OPTIMIZATION: All CT scans at this facility use at least one of these dose optimization te chniques: automated exposure control; mA and/or kV adjustment per patient size (includes targeted exa ms where dose is matched to clinical indication); or iterative reconstruction.
--- OUTSIDE RECORDS SUMMARY | 2023-04-18 11:31 | XMS_ITS ---
Author Name Beto Solano Address [address] [place] [address] Phone [phone] Organization [facility], NA DOCUMENT DISCLAIMER Multiple document versions may exist, please be sure you review the latest version. The information in the [facility] Progress Note Document represents a providers documented clinical note containing certain health and medical information. It may not contain the complete medical history for the patient and should be independently verified. The represented time in the document is Eastern Time PROVIDER ROUNDING NOTE COMPREHENSIVE Patient:?Vianca?Mars,?1960,?62y,?F Dialysis?Location:?[facility] Attending?Global Climate Change Researcher:?Ronal Service?Date:?04/11/2023 Service?Provider:?Beto?Russ,? I?met?face?to?face?with?the?patient?today. OVERVIEW The?patient?presented?with?ESRD?on?dialysis Primary?cause?of?renal?failure:?Type?2?diabetes?mellitus&#16 0;with?diabetic?chronic?kidney?disease Comments:?04/11?stabilizing?in?new?living?situation.?C Medications?and?labs?reviewed. 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 Admission?Date?11/30/22 Discharge?Date?12/01/22 DIALYSIS?PRESCRIPTION ??IHD?3x?Week?Start?date:?04/02/23 ??Dialyzer:?180NRe?Optiflux ??BFR:?450 ??DFR:?Manual?500 ??Potassium:?2.0 ??Sodium:?135 ??EDW:?78.5 ??Duration:?4:00 ??Calcium:?2.5 ??Bicarb:?40 ??Rx?updated?on:?03/30/2023 Comments:?I TREATMENT?ASSESSMENT Blood?pressure?controlled.?No?changes?indicated.? BP?Stand?Pre ??04/09/2023:?135/102 ??04/06/2023:?136/58 ??04/04/2023:?155/65 BP?Sit?Pre ??04/09/2023:?141/84 ??04/06/2023:?150/75 ??04/04/2023:?143/66 BP?Stand?Post ??04/09/2023:?115/76 ??04/06/2023:?101/50 ??04/04/2023:?124/61 BP?Sit?Post ??04/09/2023:?107/52 ??04/06/2023:?128/66 ??04/04/2023:?144/55 Tx?Duration ??04/09/2023:?4:11 ??04/06/2023:?4:11 ??04/04/2023:?4:10 Missed?Treatments 0?-?last?30?days 0?-?last?60?days FLUID?ASSESSMENT Comments:?04/11?working?on?high?IDWG Fluid?status?not?acceptable.?Interdialytic?weight?gain?not?a cceptable.?Optimal?weight?discussed.? EDW?(kg) ??04/09/2023:?78.5 ??04/06/2023:?78.5 ??04/04/2023:?78.5 Weight?Pre?(kg) ??04/09/2023:?82.9 ??04/06/2023:?81.5 ??04/04/2023:?82.9 Weight?Post?(kg) ??04/09/2023:?79.2 ??04/06/2023:?78.0 ??04/04/2023:?79.7 PWV?(kg) ??04/09/2023:?0.7 ??04/06/2023:?-0.5 ??04/04/2023:?1.2 UF?Rate?(mL/kg/hr) ??04/09/2023:?11.2 ??04/06/2023:?10.7 ??04/04/2023:?9.6 ADEQUACY?ASSESSMENT Adequacy?target?met.?Prescription?compliance?acceptable.?No?changes?indicated.? spKt/V,?URR ??03/28/2023:?1.7,?77.0 ??03/07/2023:?1.54,?72.0 ??02/26/2023:?3.78,?94.0 ACCESS?ASSESSMENT ??Access?Type:?CVCatheter ??Access?SubType:?Tunneled ??Access?Status:?Active?(In?Use)?-?11/06/2022 ??Access?Location:?Neck ??Placed:?11/06/2022 Vascular?access?reviewed. ANEMIA?ASSESSMENT HGB?at?goal.?Iron?parameters?acceptable.?No?changes?indicated.? HGB,?TSAT ??03/26/2023:?11.2,?63.0 ??03/05/2023:?11.7,?- ??02/26/2023:?11.4,?31.0 ?? Ferritin ??03/26/2023:?981.0 ??02/26/2023:?613.0 ??01/22/2023:?1153.0 Mircera,?IVP?(mcg) ??02/23/2023:?225 ??02/09/2023:?225 ??01/26/2023:?225 BMM?ASSESSMENT Comments:?1 PTH?controlled.?Calcium?controlled.?Phosphorus?controlled.?No?dom nges?indicated.? Phosphorus,?Calcium ??03/26/2023:?2.9,?10.4 ??02/26/2023:?3.1,?9.0 ??01/22/2023:?3.0,?8.8 ?? PTH,?Intact ??03/26/2023:?267.0 ??02/26/2023:?318.0 ??01/22/2023:?277.0 Vitamin?D?(Calcitriol)?Oral?(mcg) ??03/30/2023:?0.25 ??03/28/2023:?0.25 ??03/26/2023:?0.25 NUTRITION?ASSESSMENT Comments:?04/11?K?being?redrawn Potassium?above?goal.?Albumin?controlled.?Diet?reviewed?with patient.? Albumin,?Potassium ??04/02/2023:?-,?- ??03/26/2023:?4.8,?7.2 ??02/26/2023:?4.1,?5.7 ?? eNPCR ??03/28/2023:?1.94 ??03/07/2023:?1.08 ??02/26/2023:?1.76 PHYSICAL?EXAM Exam?Performed.?Vital?Signs?Reviewed.?Lungs?-?Clear. DIAGNOSIS Chief?Complaint:?N18.6?End?stage?renal?disease Patient?data?updated?04/11/2023?at?10:27?AM Signed?By:?Russ,?Beto,???on?04/11/2023?10:30:17 AM END OF DOCUMENT
[2023-04-18] MEDS: DEXTROSE 5%-0.9% SALINE 1,000 ML 150 ML IV (11:34)
[2023-04-18] MEDS: Calcium Gluconate 4.65 MEQ/10 ML VIAL 9.3 MG IVP (11:35)
[2023-04-18] MEDS: cefTRIAXone 2 GM/50 ML BAG IVPB (11:38)
--- OUTSIDE RECORDS SUMMARY | 2023-04-18 11:49 | XMS_ITS | Patient Health Record ---
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) Active confirmed 41624121 Problem Type 2 diabetes mellitus with unspecified complications (E11.8) Active confirmed 44602500 Problem care home current use of insulin (Z79.4) Active confirmed [id number] PLAN OF TREATMENT No Information Insurance Providers Payer Name Payer Address Payer Phone Subscriber Number Group Number Insured Name Patient Relationship to Insured Coverage Start Date Coverage End Date MEDICARE [address] [place], [place] [id number] NALDO NUNEZ Self - patient is the insured [place] [employer] [employer] [place], [place] [id number] NALDO NUNEZ Self - patient is the insured SELF PAY NO INSURANCE [address] [place] [address] NALDO NUNEZ Self - patient is the [...]
[2023-04-18 11:57] LABS: ALT 65 U/L (14-59); AST 32 U/L (15-37); Albumin 3.6 g/dL (3.4-5.0); Alkaline Phosphatase 266 U/L (46-116); Anion Gap 8.7 mmol/L (3-11); Bilirubin, Total 0.4 mg/dL (0.2-1.0); CO2 28.3 mmol/L (21.0-32.0); Calcium 8.3 mg/dL (8.5-10.1); Chloride 90 mmol/L (98-107); Creatine Kinase 46 U/L (26-192); Estimated GFR 8.11 (mL/min/1.73m2); Glucose 121 mg/dL (74-106); NT-proBNP 5414 pg/mL (<300); Potassium 4.6 mmol/L (3.5-5.1); Sodium 127 mmol/L (136-145); Troponin I < 50 ng/L (<or=60)
[2023-04-18 11:58] LABS: ETHANOL BLOOD < 3.0 mg/dL (<10)
[2023-04-18 11:59] LABS: BUN 93 mg/dL (7-18)
[2023-04-18 12:00] LABS: CREATININE 5.6 mg/dL (0.55-1.02)
[2023-04-18 12:59] LABS: COVID-19 PCR Negative (Negative); Influenza A PCR Negative (Negative); Influenza B PCR Negative (Negative); RSV PCR Negative (Negative)
[2023-04-18 13:09] LABS: Source Nasopharynx
[2023-04-18 13:43] LABS: Bilirubin Negative (Negative); Blood Large (Negative); Clarity Cloudy (Clear); Glucose 100 mg/dL (Negative); Ketones Negative (Negative); Leukocyte Esterase Moderate (Negative); Nitrite Negative (Negative); Urobilinogen 0.2 mg/dL (Up to 0.2); pH 7.5 (5-8)
[2023-04-18 13:49] LABS: C & S Indicated? Yes; WBC >50 HPF (0-5)
--- NOTE | 2023-04-18 14:24 | NUR.NOTE ---
Nursing Note: patient able to tolerate eating a whole peanutbutter sandwich and small diet delvis mike
[2023-04-18 14:36] LABS: Troponin I < 50 ng/L (<or=60)
== END 2023-04-18 15:22 | disposition home or self-care (01) ==
PROVIDERS: Emergency Provider Emergency Medicine; PCP Nurse Practitioner
DX: I95.9 Hypotension, unspecified (principal); E87.5 Hyperkalemia; E83.51 Hypocalcemia; R94.31 Abnormal electrocardiogram [ECG] [EKG]; I12.0 Hypertensive chronic kidney disease with stage 5 chronic kidney disease or end stage renal disease; E11.22 Type 2 diabetes mellitus with diabetic chronic kidney disease; N18.6 End stage renal disease; G40.909 Epilepsy, unspecified, not intractable, without status epilepticus; Z99.2 Dependence on renal dialysis; Z79.4 Long term (current) use of insulin; Z79.82 Long term (current) use of aspirin; Z86.73 Personal history of transient ischemic attack (TIA), and cerebral infarction without residual deficits
CPT/HCPCS: 36410; 80053; 82550; 82962; 87040; 87637; 93005; 96361; 96365; 96375; 99284; 70450; 71045; 72125; 73030; 73080; 80320; 81003; 81015; 83605; 83735; 83880; 84443; 84484; 85025; 87086; 93010; J0612; J7042

== ENCOUNTER → 2023-05-08 10:38 | Outpatient (BNVA) | payer MEDICARE, MEDICAID, SELFPAY | PROVIDERS: PCP Nurse Practitioner; Referring Provider Nurse Practitioner; Visit Provider Psychiatry & Neurology Neurology | DX: I63.9 Cerebral infarction, unspecified (principal); R56.9 Unspecified convulsions; R41.3 Other amnesia | CPT/HCPCS: 99215 ==

== ENCOUNTER 2023-06-13 11:17 | Emergency (ER) | payer MEDICARE, MEDICAID, SELFPAY ==
[2023-06-13] VITALS (37 sets, daily range): BP systolic 174–233; BP diastolic 91–154; PULSE 61–67; RESP 11–22; TEMP 35.6; O2SAT 82–98
--- NOTE | 2023-06-13 11:48 | ED.GENADUL_ITS ---
HPI General Date/Time Provider Initiated Documentation: 06/13/23 11:48 . HPI Narrative: MDM This is a chronically ill-appearing afebrile and not tachycardic 62-year-old female with history of seizures and breakthrough seizure this morning at home and again in the ED, now postictal. She received 5 mg of intramuscular midazolam. She is protecting her airway. IV access was obtained and she received 2 g of levetiracetam. Patient has 2 points of IV access. No fevers nor neck pain to suggest meningitis. No tonic-clonic activity to suggest need for EEG as I am not suspicious for status epilepticus.. Patient had a normal reassuring neurological examination before her seizure so I am not suspicious for CVA. Given dialysis history and elevated BUN will obtain CT head to ensure that she does not have any acute intracranial hemorrhage as she has been nauseous and vomiting and lacks abdominal pain. No pain out of proportion to suggest necrotizing soft tissue infection. Patient does make urine but has had no dysuria nor frequency. I considered posterior circulation CVA however the patient is not having any nystagmus so I did not feel she would require an MRI brain. No hypoxia nor cough to suggest pneumonia. No right lower quadrant tenderness to suggest appendicitis. No history of recent falls to suggest pneumothorax. Patient does have a pacemaker and has had no obvious dysrhythmias on monitoring. Patient has a Medtronic pacemaker which will interrogate to assess for dysrhythmias. No recent fevers to suggest sepsis so did not check a lactate, blood cultures nor treat empirically with IV antibiotics. Patient does have pulmonary edema but she does not represent acute symptomatic pulmonary edema so I do not feel that she requires nitroglycerin. She has not taken her home medications and so certainly redosing her carvedilol could be beneficial but will monitor her blood pressure first. She is complaining of some chronic back pain. 1 PM No anemia no thrombocytopenia no leukocytosis. Comprehensive metabolic panel showing mild hypercalcemia hyperkalemia with a serum potassium of 5.2. She will receive 2 g of calcium gluconate. Mild hyponatremia. Elevated BUN similar to prior. CKD similar to prior. Mild hyperglycemia but only mild gap acidosis and normal bicarbonate??not consistent with DKA. Elevated alkaline phosphatase similar to prior. Patient did make troponin. Will treat with aspirin following CT head. Suspect that this is likely secondary to demand. An ECG is being obtained. Patient lacks chest pain. Patient will require tertiary care transfer for dialysis. I redosed her with her home amlodipine and carvedilol. ECG with diffuse T wave inversions hypertension and bradycardia and concern for Shalom's reflex. 2:40 PM Unfortunately [facility] [place] [facility] both declined secondary to capacity. Patient CT scan showed no obvious acute findings. Will have health community relations officer Shelli reach out to additional tertiary care centers with potential capacity for dialysis. 3:30 PM Unfortunately both [facility] in [facility] declined secondary to capacity. There is a potential for [facility]. Health community relations officer Shelli is also calling out to [facility]. I updated the patient. Patient confirms that she is full code. Patient has multiple reasons to have had a seizure. She is on lamotrigine for mood. Per note from neurology, seizures could be from prior CVA from end-stage renal disease from cefazolin use or possibly tramadol. She is only on lamotrigine and not on any seizure medications. Her prior CVA was reportedly silent though she is on apixaban for her peripheral artery disease. Given that levetiracetam is renally metabolized we will provide 2 mg of oral lorazepam for antiseizure medication. I spoke with [facility], Dr. Margie Morales at the emergency department who agreed to accept the patient. Will order 2 milligrams of oral lorazepam as prophylaxis against seizures. Patient's Medtronic pacemaker has been interrogated which showed no lead nor performance issues. 4:15 PM Patient is going to be transferred soon to [facility]. Her troponin increased from 79 up to 214. Will repeat ECG prior to transfer. Repeat ECG showing persistent diffuse T wave inversions. Slightly increased ST segment elevation in V2. No significant elevation in aVR. QRS is slightly narrower. No acute injury pattern. Chronic conditions affecting the care of the patient: Dialysis dependent History obtained from an outside historian: Patient's caregiver External record review: [facility] [place] Diagnostic interpretations performed by me: Per my independent interpretation chest x-ray shows: Increased interstitial markings pacemaker dialysis catheter in place Per my independent interpretation EKG shows: Sinus bradycardia with interventricular conduction delay at a rate of 57. Left axis deviation LVH. Diffuse T wave inversions chest wall and limb leads concerning for cerebral T waves. No ST segment abnormalities. No elevation in aVR. Mildly prolonged QTc. Compared to prior dated last year QTc has narrowed and T wave inversions are new. ]Medications: Levetiracetam midazolam calcium gluconate Social determinants of health affecting disposition: N/A Management discussed with: Emergency medicine at [facility] Treatment/interventions considered: N/A Response to therapies provided: No subsequent seizures following antiseizure meds HPI This is a 62-year-old dialysis dependent insulin and dependent diabetic female with bipolar disorder and cardiac pacemaker with hypertension hyperlipidemia. She reportedly fell out of her chair this morning following a seizure. She reportedly was postictal for approximately 20 minutes. She has reportedly had dizzy spells dry heaving and vomiting last night. She has not had any abdominal pain. She does make urine but denies dysuria and frequency. She had a gradual onset headache this morning. History is provided by her care provider. She is due for dialysis today. She has never had any surgeries to her abdomen. She denies routine tobacco, ethanol, and illicits. She vomited up all of her home medications this morning. Exam General: Chronically ill-appearing in no acute distress speaking in complete sentences. Head: Normocephalic, atraumatic. Eye:[Pupils equal, round reactive to light.] Extraocular eye movements intact. No conjunctival injection. No scleral icterus. Ear, nose, mouth, throat: Grossly normal inspection. Normal voice, handling secretions normally. Neck: Trachea midline. No nuchal rigidity. Cardiovascular: Well-perfused distal extremities. Regular rate and rhythm. Respiratory: Nonlabored respiration. Clear lungs bilaterally. Gastrointestinal: Nondistended abdomen. Soft nontender Musculoskeletal: No significant lower extremity pitting edema. Moving all 4 extremities spontaneously. Skin: Normal for age and race, grossly normal temperature and turgor. No acute rash. Neurologic: Alert and appropriate, no apparent acute deficits. GCS 15. Cranial nerves II through XII intact grossly. 5 out of 5 bilateral upper lower extremity strength. Psychiatric: Mood and manner are appropriate. Grooming and personal hygiene are appropriate. Related Data Home Medications Medication Instructions Recorded Confirmed blood sugar diagnostic (Blood #300 ea 05/06/18 05/08/23 Glucose Test strips) lamotrigine 100 mg tablet 100 mg PO BID 05/09/18 05/08/23 lorazepam 1 mg tablet 1 mg PO HS 05/09/18 05/08/23 diaper,brief,adult,disposable #150 ea 07/25/18 05/08/23 (Adult Briefs - Large) benztropine 0.5 mg tablet 0.5 mg PO HS 03/06/19 05/08/23 multivitamin (Daily Multi-Vitamin 1 tab PO DAILY #90 tabs 05/15/19 05/08/23 tablet) cyanocobalamin (vitamin B-12) 500 500 mcg PO DAILY 08/05/19 05/08/23 mcg tablet (Vitamin B-12) nystatin 100,000 unit/gram topical 1 applic topical BID #60 grams 02/04/20 05/08/23 powder acetylcysteine 600 mg capsule (NAC) 600 mg PO BID 02/11/20 05/08/23 mirtazapine 15 mg tablet 15 mg PO QHS 02/11/20 05/08/23 acetaminophen 500 mg tablet 1,000 mg PO BID PRN fever or pain 07/06/20 05/08/23 (Acetaminophen Extra Strength) cariprazine 1.5 mg capsule 1.5 mg PO DAILY 10/27/20 05/08/23 (Vraylar) insulin aspart U-100 100 unit/mL See Rx Instructions subcut AC #15 07/03/22 05/08/23 (3 mL) subcutaneous pen (Novolog mL FlexPen U-100 Insulin aspart) omeprazole 40 mg capsule,delayed 40 mg PO DAILY #90 caps 07/13/22 05/08/23 release raised toilet seat #1 ea 07/13/22 05/08/23 shower chair with arms, with slide #1 ea 07/13/22 05/08/23 to tub aspirin 81 mg tablet,delayed See Rx Instructions .Route 07/20/22 05/08/23 release .COMPLEX #90 tabs Commode #1 ea 08/21/22 05/08/23 carvedilol 12.5 mg tablet See Rx Instructions .Route 08/28/22 05/08/23 .COMPLEX #180 tabs polyethylene glycol 3350 17 17 g PO DAILY PRN constipation 11/06/22 05/08/23 gram/dose oral powder sennosides 8.6 mg-docusate sodium 2 tab-cap PO BID PRN constipation 11/06/22 05/08/23 50 mg tablet (Senna with Docusate Sodium) ondansetron 4 mg disintegrating 4 mg PO Q8H PRN nausea and 11/12/22 05/08/23 tablet vomiting #30 tabs amlodipine 10 mg tablet See Rx Instructions .Route 12/04/22 05/08/23 .COMPLEX #90 tabs fosinopril 40 mg tablet 40 mg PO BID 12/04/22 05/08/23 lorazepam 0.5 mg tablet 0.5 mg PO Q6H PRN anxiety 12/04/22 05/08/23 apixaban 5 mg tablet (Eliquis) See Rx Instructions .Route 12/18/22 05/08/23 .COMPLEX #90 tabs pen needle, diabetic 32 gauge x #100 ea 03/05/23 05/08/23 (BD Vane 2nd Gen Pen Needle) nystatin 100,000 unit/gram topical 1 applic topical BID under breasts 03/19/23 05/08/23 powder #30 grams cefadroxil 500 mg capsule 1,000 mg PO .3x/week 03/22/23 05/08/23 atorvastatin 40 mg tablet See Rx Instructions .Route 04/02/23 05/08/23 .COMPLEX #90 tabs memantine 5 mg tablet 5 mg PO QPM #30 tabs 05/08/23 05/08/23 meclizine 12.5 mg tablet See Rx Instructions .Route 05/09/23 .COMPLEX #60 tabs insulin glargine 100 unit/mL (3 See Rx Instructions .Route 05/28/23 mL) subcutaneous pen (Basaglar .COMPLEX #30 mL KwikPen U-100 Insulin) Previous Rx's Medication Instructions Recorded blood sugar diagnostic (Blood #300 ea 05/06/18 Glucose Test strips) diaper,brief,adult,disposable #150 ea 07/25/18 (Adult Briefs - Large) multivitamin (Daily Multi-Vitamin 1 tab PO DAILY #90 tabs 05/15/19 tablet) nystatin 100,000 unit/gram topical 1 applic topical BID #60 grams 02/04/20 powder insulin aspart U-100 100 unit/mL See Rx Instructions subcut AC #15 07/03/22 (3 mL) subcutaneous pen (Novolog mL FlexPen U-100 Insulin aspart) omeprazole 40 mg capsule,delayed 40 mg PO DAILY #90 caps 07/13/22 release raised toilet seat #1 ea 07/13/22 shower chair with arms, with slide #1 ea 07/13/22 to tub aspirin 81 mg tablet,delayed See Rx Instructions .Route 07/20/22 release .COMPLEX #90 tabs Commode #1 ea 08/21/22 carvedilol 12.5 mg tablet See Rx Instructions .Route 08/28/22 .COMPLEX #180 tabs ondansetron 4 mg disintegrating 4 mg PO Q8H PRN nausea and 11/12/22 tablet vomiting #30 tabs amlodipine 10 mg tablet See Rx Instructions .Route 12/04/22 .COMPLEX #90 tabs apixaban 5 mg tablet (Eliquis) See Rx Instructions .Route 12/18/22 .COMPLEX #90 tabs pen needle, diabetic 32 gauge x #100 ea 03/05/23 (BD Vane 2nd Gen Pen Needle) nystatin 100,000 unit/gram topical 1 applic topical BID under breasts 03/19/23 powder #30 grams atorvastatin 40 mg tablet See Rx Instructions .Route 04/02/23 .COMPLEX #90 tabs memantine 5 mg tablet 5 mg PO QPM #30 tabs 05/08/23 meclizine 12.5 mg tablet See Rx Instructions .Route 05/09/23 .COMPLEX #60 tabs insulin glargine 100 unit/mL (3 See Rx Instructions .Route 05/28/23 mL) subcutaneous pen (Basaglar .COMPLEX #30 mL KwikPen U-100 Insulin) Allergies Allergy/AdvReac Type Severity Reaction Status Date / Time aripiprazole [From Abilify] Allergy Severe tardive Verified 06/13/23 11:39 dyskinesia duloxetine HCl Allergy Severe Hives Verified 06/13/23 11:39 [From Cymbalta] oxycodone Allergy Severe Hives Verified 06/13/23 11:39 Sulfa (Sulfonamide Allergy Severe Skin Rash Verified 06/13/23 11:39 Antibiotics) acetaminophen [From Vicodin] Allergy Intermediate vomiting Verified 06/13/23 11:39 citalopram Allergy Intermediate HIVES Verified 06/13/23 11:39 fesoterodine Allergy Intermediate HIVES Verified 06/13/23 11:39 hydrocodone bitartrate Allergy Intermediate vomiting Verified 06/13/23 11:39 [From Vicodin] latex Allergy Intermediate Hives Verified 06/13/23 11:39 morphine Allergy Intermediate unknown Verified 06/13/23 11:39 rabies vaccine, human Allergy Intermediate Hives Verified 06/13/23 11:39 diploid cell [Rabies Vaccine,Human Diploid] Tetanus Vaccines and Toxoid Allergy Intermediate Swelling/Ed Verified 05/08/23 10:41 [Tetanus Vaccines & Toxoid] ghulam amitriptyline Allergy Unknown unknown Verified 06/13/23 11:39 bupropion HCl Allergy Unknown unknown Verified 06/13/23 11:39 [From Wellbutrin] celecoxib [From Celebrex] Allergy Unknown unknown Verified 06/13/23 11:39 diazepam [From Valium] Allergy Unknown unknown Verified 06/13/23 11:39 divalproex sodium Allergy Unknown unknown Verified 06/13/23 11:39 [From Depakote] escitalopram oxalate Allergy Unknown unknown Verified 06/13/23 11:39 [From Lexapro] fluoxetine HCl [From Prozac] Allergy Unknown unknown Verified 06/13/23 11:39 fosphenytoin sodium Allergy Unknown unknown Verified 06/13/23 11:39 [From Cerebyx] nicotine [From Nicoderm CQ] Allergy Unknown rash/hives Verified 06/13/23 11:39 paroxetine HCl [From Paxil] Allergy Unknown unknown Verified 06/13/23 11:39 phenytoin sodium Allergy Unknown unknown Verified 06/13/23 11:39 [From Dilantin] phenytoin sodium extended Allergy Unknown unknown Verified 06/13/23 11:39 [From Dilantin] prednisone Allergy Unknown unknown Verified 06/13/23 11:39 procaine HCl [From Novocain] Allergy Unknown unknown Verified 06/13/23 11:39 quetiapine Allergy Unknown unknown Verified 06/13/23 11:39 quetiapine fumarate Allergy Unknown Other (See Verified 06/13/23 11:39 [From Seroquel] Comment) risperidone [From Risperdal] Allergy Unknown Other (See Verified 06/13/23 11:39 Comment) sertraline Allergy Unknown Hives Verified 06/13/23 11:39 trazodone Allergy Unknown Other (See Verified 06/13/23 11:39 Comment) venlafaxine HCl Allergy Unknown Other (See Verified 06/13/23 11:39 [From Effexor] Comment) warfarin [From Coumadin] Allergy none Verified 06/13/23 11:39 listed on referral thiothixene [Thiothixene] AdvReac Severe Nausea Verified 06/13/23 11:39 topiramate AdvReac Intermediate Nausea Verified 06/13/23 11:39 gabapentin AdvReac Unknown Severe Verified 06/13/23 11:39 dizziness, runs; vomiting lidocaine AdvReac Unknown Nausea Verified 06/13/23 11:39 ibuprofen AdvReac headache Verified 06/13/23 11:39 and nausea melatonin AdvReac nightmares Verified 06/13/23 11:39 varenicline tartrate AdvReac Psychosis Verified 06/13/23 11:39 [From Chantix] ABSOLUTE CONTRAINDICATION AdvReac Severe Headache Uncoded 06/13/23 11:39 FOR MRI (disconnected RV pacer lead) general anesthia AdvReac Unknown Other (See Uncoded 06/13/23 11:39 Comment) General Stated Complaint: Dizzy/Sync ASIM: 3 Course Vital Signs Vital signs: Vital Signs Temperature 35.6 C L 06/13/23 11:28 Pulse 63 06/13/23 11:28 Respiratory Rate 16 06/13/23 11:28 Blood Pressure 191/91 H 06/13/23 11:28 Pulse Oximetry 97 06/13/23 11:28 Temperature 35.6 C L 06/13/23 11:28 Pulse 63 06/13/23 11:28 Respiratory Rate 16 06/13/23 11:28 Blood Pressure 191/91 H 06/13/23 11:28 Pulse Oximetry 97 06/13/23 11:28 Medical Decision Making Quality:SDOH Health Related Social Needs: No Data to Display Critical Care Time Critical Care Time Critical Care Time: Yes Total Critical Care Time: 45 Attestation: Bedside monitoring and seizure treatment PFSH All Active Problems (Updated 06/13/23 @ 15:14 by Elgin Pat MD) Myocardial injury (Acute) Breakthrough seizure (Acute) Bacteremia (Acute ~10/2022) Intra vascular infection, AV graft infection - treating wit IV abx when at di alysis Anemia (Chronic) Atherosclerosis of artery of both lower extremities (Acute) 06/08/22 Rd Uriarte DPM - podiatry visit Reticulocytopenia (Acute) Elevated ferritin (Acute) Dialysis patient (Acute) Fracture of ramus of left pubis (Acute) Hyperlipidemia (Acute) 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 11/15/21 Decision from Transplant Eval that pt is not a candidate for kidney transplant Dysuria (Acute) Memory deficit (Acute) Solitary left kidney (Acute) Decreased GFR (Acute) Viral syndrome (Acute) Bilateral leg edema (Acute) Colonoscopy refused (Acute) Urinary incontinence (Acute 02/11/15) Urge incontinence (Chronic) Elevated cholesterol (Chronic) Fracture of radial neck, left, closed (Acute) H/O endarterectomy (Chronic) Non-adherence to medical treatment (Acute) Type 2 diabetes mellitus (Chronic) Sinus bradycardia (Chronic) S/p pacemaker. Generator change 12/2013 [facility] (Yariel [facility]). Pocket revision & new RV lead 10/2014 [facility]. Postmenopausal (Chronic) LMP ~2004 Paranoia (Chronic 12/19/16) Meralgia paresthetica, right lower limb (Chronic 11/05/15) Dr. 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 Congenital single kidney (Chronic 03/08/15) by xray from [facility] 03/17/09 in scanned records Adult BMI > 30 (Chronic 06/07/15) Medical History Toe pain, bilateral 06/08/22 Rd Uriarte DPM Onychomycosis 06/08/22 Rd Uriarte DPM Type 2 diabetes mellitus with diabetic polyneuropathy Depression End stage renal disease 07/21/20 [facility] Hemodialysis patient Hypertension (~06/20/19) Goal <130/80 [facility] Seizure Sinus node dysfunction (10/22/14) Pacemaker (10/22/14) for bradycardia and sinus node dysfunction DDD pacer 2005 in [place] Medtronic dual lead programmed VVI - PG replaced 01/01/2014 [facility] Old RV lead abandoned PTSD (post-traumatic stress disorder) (05/28/17) PAD (peripheral artery disease) (08/13/17) Stroke R parietal; asymptomatic; Bipolar 1 disorder Surgical History S/P angioplasty (01/30/18) left femoral endarterectomy and patch angioplasty, Aortogram, Over the wire Left ABF graft thrombectomy, Open ledt ABF thrombectomy, left ABF graft stent (VBX 8x39) S/P aortobifemoral bypass surgery aortobifemoral bypass (09/07/17) [facility] [place]. August 2017 Pacemaker (~2004) [place], [place] section (~1985) Family History Mother No problems noted. Father No problems noted. Sister No problems noted. Social History Smoking/Tobacco Use Status: Former Tobacco Use Quit Date: 03/03/21 Pack-years: 36 Smoking risk assessment performed?: Yes Alcohol Intake: never Drug use: Never Substance use type: does not use Adopted: No Housing: house Number of Children: 1 Do you need help understanding health information?: Always current occupation: disabliilty What type of physical activity do you participate in: walking Duration: 15-30 minutes/day Frequency: 3-4 times per week Do you feel safe at home: Yes Do you feel safe in your relationship?: Yes Additional Social history: lives with care provider - FELIX BEASLEY 04/18/23 Discharge Plan Disposition Patient Disposition: Transfer-Acute Inpatient Care Specific Acute Inpt Facility: [facility] Discharge Details Clinical Impression: Breakthrough seizure, Myocardial injury Primary Care Provider: Rosaura Fragoso ED Provider: Elgin Pat Home Meds and New Rx's Prescriptions: No Action mirtazapine 15 mg tablet 15 mg PO QHS acetylcysteine [NAC] 600 mg capsule 600 mg PO BID acetaminophen [Acetaminophen Extra Strength] 500 mg tablet 1,000 mg PO BID PRN (Reason: fever or pain) memantine 5 mg tablet 5 mg PO QPM Qty: 30 5RF (DME) Blood Glucose Test strip See Dose Instructions .ROUTE .MEDSUPPLY Qty: 300 3RF Dose Instruction: As directed Rx Instructions: Test TID (DME) Adult Briefs - Large misc See Dose Instructions .ROUTE .MEDSUPPLY Qty: 150 12RF Dose Instruction: As directed Rx Instructions: Change as directed (DME) shower chair with arms, with slide to tub Large See Rx Instructions .Route .MEDSUPPLY Qty: 1 0RF Rx Instructions: As directed ([facility] raised toilet seat oblong toilet See Rx Instructions .Route .MEDSUPPLY Qty: 1 0RF Rx Instructions: As directed omeprazole 40 mg capsule,delayed release(DR/EC) 40 mg PO DAILY Qty: 90 3RF lamotrigine 100 mg tablet 100 mg PO BID Patient Comments: Increased to bid at [facility] d/c lorazepam 1 mg tablet 1 mg PO HS Patient Comments: may also take 0.5mg once daily if needed. (reported progress note [facility] 05/02/18) benztropine 0.5 mg tablet 0.5 mg PO HS Rx Instructions: Note dated 02/13/19 [facility] multivitamin [Daily Multi-Vitamin] Tablet 1 tab PO DAILY Qty: 90 3RF cyanocobalamin (vitamin B-12) [Vitamin B-12] 500 mcg tablet 500 mcg PO DAILY nystatin 100,000 unit/gram powder 1 applic topical BID Qty: 60 1RF Rx Instructions: apply liberal amount to affected areas of rash to breasts until resolved Vraylar 1.5 mg capsule 1.5 mg PO DAILY Rx Instructions: as of 10/27/20 w/ permission from Dr. Pedersen via Kathya Stanley [facility] insulin aspart U-100 [Novolog FlexPen U-100 Insulin] 100 unit/mL (3 mL) insulin pen See Rx Instructions subcut AC Qty: 15 3RF Rx Instructions: 2-10u based on sliding scale before meals. aspirin 81 mg tablet,delayed release (DR/EC) See Rx Instructions .ROUTE .COMPLEX Qty: 90 3RF Dose Instruction: TAKE ONE TABLET BY MOUTH DAILY Rx Instructions: TAKE ONE TABLET BY MOUTH DAILY (DME) Commode See Rx Instructions .Route .MEDSUPPLY Qty: 1 0RF Rx Instructions: Raised toilet seat not safe for the patient. carvedilol 12.5 mg tablet See Rx Instructions .ROUTE .COMPLEX Qty: 180 3RF Dose Instruction: TAKE ONE TABLET BY MOUTH TWO TIMES A DAY WITH MEAL OR FOOD INCREASED BY [facility] 05/26/21 Rx Instructions: TAKE ONE TABLET BY MOUTH TWO TIMES A DAY WITH MEAL OR FOOD INCREASED BY [facility] 05/26/21 polyethylene glycol 3350 17 gram/dose powder 17 g PO DAILY PRN (Reason: constipation) sennosides-docusate sodium [Senna with Docusate Sodium] 8.6-50 mg tablet 2 tab-cap PO BID PRN (Reason: constipation) fosinopril 40 mg tablet 40 mg PO BID lorazepam 0.5 mg tablet 0.5 mg PO Q6H PRN (Reason: anxiety) amlodipine 10 mg tablet See Rx Instructions .ROUTE .COMPLEX Qty: 90 3RF Dose Instruction: TAKE ONE TABLET BY MOUTH EVERY DAY Rx Instructions: TAKE ONE TABLET BY MOUTH EVERY DAY Eliquis 5 mg tablet See Rx Instructions .ROUTE .COMPLEX Qty: 90 1RF Dose Instruction: TAKE 1/2 TABLET BY MOUTH TWO TIMES A DAY Rx Instructions: TAKE 1/2 TABLET BY MOUTH TWO TIMES A DAY (DME) pen needle, diabetic [BD Vane 2nd Gen Pen Needle] 32 gauge x 5/32 needle See Rx Instructions .ROUTE .COMPLEX Qty: 100 3RF Dose Instruction: USE FOUR TIMES A DAY Rx Instructions: USE FOUR TIMES A DAY nystatin 100,000 unit/gram powder 1 applic topical BID Qty: 30 3RF cefadroxil 500 mg capsule 1,000 mg PO .3x/week Rx Instructions: total of 180 days atorvastatin 40 mg tablet See Rx Instructions .ROUTE .COMPLEX Qty: 90 3RF Dose Instruction: TAKE ONE TABLET BY MOUTH EVERY DAY Rx Instructions: TAKE ONE TABLET BY MOUTH EVERY DAY meclizine 12.5 mg tablet See Rx Instructions .ROUTE .COMPLEX Qty: 60 0RF Dose Instruction: TAKE ONE TABLET BY MOUTH THREE TIMES A DAY NEEDED FOR DIZZINESS Rx Instructions: TAKE ONE TABLET BY MOUTH THREE TIMES A DAY NEEDED FOR DIZZINESS insulin glargine [Basaglar KwikPen U-100 Insulin] 100 unit/mL (3 mL) insulin pen See Rx Instructions .ROUTE .COMPLEX Qty: 30 2RF Dose Instruction: INJECT 25 UNITS UNDER SKIN EVERY MORNING Rx Instructions: INJECT 25 UNITS UNDER SKIN EVERY MORNING ondansetron 4 mg tablet,disintegrating 4 mg PO Q8H PRN (Reason: nausea and vomiting) Qty: 30 0RF
--- NOTE | 2023-06-13 12:00 | DI.CT_ITS ---
Exam(s) CT HEAD WO EXAM: CT HEAD WO CLINICAL HISTORY: Seizure. TECHNIQUE: Imaging Protocol: Axial computed tomography images with coronal and sagittal reformatted images were created and reviewed COMPARISON: CT CT HEAD CERVICAL SPINE WO from 04/18/2023 FINDINGS: There are no skull fractures. There is no fluid in the visualized paranasal sinuses. Again noted is evidence of prior right parietal lobe infarct. Abundant bilateral periventricular hyp odensity consistent with chronic small vessel disease. No evidence of intracranial hemorrhage, intra or extra-axial. Ventricles are again noted be enlarged but unchanged. No blood within the ventricu lar system nor within the basal cisterns. IMPRESSION: Prior right parietal lobe infarct again noted. No obvious acute intracranial findings. RADIATION DOSE DELIVERED: 710mGy.cm Total DLP DATA REPOSITORY: All CT scans at this facility are submitted to the National Radiology Data Registry (NRDR) Dose Index Registry (DIR) with the [employer] ([employer]). RADIATION OPTIMIZATION: All CT scans at this facility use at least one of these dose optimization te chniques: automated exposure control; mA and/or kV adjustment per patient size (includes targeted exa ms where dose is matched to clinical indication); or iterative reconstruction.
--- NOTE | 2023-06-13 12:00 | RT.EKG_ITS ---
APPROVED REPORT Exam: Resting ECG Reason for Exam: nausea Patient Location: E HR:57 bpm ECG Measurements Heart Rate 57 AXIS WA 181 P 85 QRSd 136 QRS -69 QT 512 T 236 QTc 498 Conclusion Sinus bradycardia...rate< 60 LVH with secondary repolarization abnormality...multi-LVH criteria, abnrm ST-T Probable anterior infarct, age indeterminate...Q >35mS, T neg, V2-V5 Sinus bradycardia with interventricular conduction delay at a rate of 57. Left axis deviation LVH. Diffuse T wave inversions chest wall and limb leads concerning for cerebral T waves. No ST segment a bnormalities. No elevation in aVR. Mildly prolonged QTc. Compared to prior dated last year QTc has narrowed and T wave inversions are new.
--- NOTE | 2023-06-13 12:37 | DI.RAD_ITS ---
Exam(s) XR PORTABLE CHEST AP EXAM: XR PORTABLE CHEST AP CLINICAL HISTORY: Nausea vomiting. TECHNIQUE: 2D digital imaging was performed. COMPARISON: CR XR CHEST 1V IN DI DEPT from 04/18/2023 FINDINGS: Single AP portable view. Distal tip of dialysis catheter is in the right atrium. Again noted is a bipolar left subclavian pac emaker with lead tips in are in RV. Heart size is upper normal. The mediastinum is not widened. Lungs are clear. No infiltrates nor obvious pleural effusions. No pulmonary edema. IMPRESSION: No acute pulmonary findings on this single AP portable view of the chest.Findings as above. DATA REPOSITORY: RADIATION DOSE DELIVERED:
[2023-06-13 12:39] LABS: Abs Immature Grans 0.08 10^3/uL (0.0-0.06); Absolute Basophil Count 0.02 10^3/uL (0.0-0.2); Absolute Eosinophil Count 0.04 10^3/uL (0.0-0.7); Absolute Lymphocyte Count 0.49 10^3/uL (1.2-3.4); Absolute Monocyte Count 0.33 10^3/uL (0.1-0.8); Absolute Neutrophil Count 6.85 10^3/uL (1.2-6.7); Basophils % 0.3; Eosinophils % 0.5; HCT 40.2 % (36.0-46.0); HGB 13.2 g/dL (11.2-15.7); Lymphocytes % 6.3; MCH 31.8 pg (27.0-33.0); MCHC 32.8 % (32.0-36.0); MCV 97 fL (80-95); MPV 9.5 fL (8.0-11.0); Monocytes % 4.2; Neutrophils % 87.7; Nucleated RBC 0.3 % (0.0-0.3); Platelet Count 185 10^3/uL (130-400); RBC 4.15 10^6/uL (3.93-5.22); RDW 16.6 % (11.7-14.6); RDW-SD 59.7 fL; WBC 7.81 10^3/uL (4.4-10.8)
[2023-06-13] MEDS: Midazolam 10 MG/2 ML VIAL NS (12:39)
[2023-06-13 12:57] LABS: ALT 31 U/L (14-59); AST 33 U/L (15-37); Albumin 4.2 g/dL (3.4-5.0); Alkaline Phosphatase 235 U/L (46-116); Anion Gap 14.9 mmol/L (3-11); Bilirubin, Total 0.8 mg/dL (0.2-1.0); CO2 25.1 mmol/L (21.0-32.0); Calcium 8.7 mg/dL (8.5-10.1); Chloride 87 mmol/L (98-107); Estimated GFR 5.71 (mL/min/1.73m2); Glucose 147 mg/dL (74-106); Potassium 5.2 mmol/L (3.5-5.1); Sodium 127 mmol/L (136-145); Total Protein 7.6 g/dL (6.4-8.2)
[2023-06-13 13:01] LABS: BUN 97 mg/dL (7-18)
[2023-06-13 13:02] LABS: CREATININE 7.5 mg/dL (0.55-1.02)
[2023-06-13 13:08] LABS: Troponin I 79 ng/L (< or =60)
[2023-06-13] MEDS: levETIRAcetam 2,000 MG in Normal Saline 100 ML 400 MG IVPB (13:23)
[2023-06-13] MEDS: fentaNYL 100 MCG/2 ML VIAL 50 MCG IVP (13:56)
[2023-06-13] MEDS: Ondansetron O.D.T. 4 MG TABEF PO (14:33)
[2023-06-13] MEDS: Acetaminophen 500 MG TAB 1000 MG PO (14:35)
[2023-06-13] MEDS: Carvedilol 12.5 MG TAB PO (14:35)
[2023-06-13] MEDS: Aspirin 81 MG CHEW 324 MG CH (14:39)
[2023-06-13] MEDS: Calcium Gluconate 4.65 MEQ/10 ML VIAL 9.3 MG IVP (14:51)
[2023-06-13] MEDS: Normal Saline 50 ML 30 ML (15:13)
[2023-06-13] MEDS: amLODIPine 5 MG TAB 10 MG PO (15:13)
[2023-06-13] MEDS: lamoTRIgine 100 MG TAB PO (15:32)
--- NOTE | 2023-06-13 16:00 | RT.EKG_ITS ---
APPROVED REPORT Exam: Resting ECG Reason for Exam: Myocardial injury Patient Location: E HR:60 bpm ECG Measurements Heart Rate 60 AXIS NJ 183 P 87 QRSd 126 QRS -64 QT 484 T 228 QTc 482 Conclusion Sinus rhythm...normal P axis, V-rate 60- 99 Left ventricular hypertrophy...multiple LVH criteria Abnormal T, consider ischemia, diffuse leads...T <-0.20mV, ant/lat/inf Repeat ECG showing persistent diffuse T wave inversions. Slightly increased ST segment elevation in V2. No significant elevation in aVR. QRS is slightly narrower. No acute injury pattern.
[2023-06-13 16:14] LABS: Troponin I 214 ng/L (< or =60)
== END 2023-06-13 16:42 | disposition short-term general hospital (02) ==
PROVIDERS: Emergency Provider Emergency Medicine; PCP Nurse Practitioner
DX: G40.909 Epilepsy, unspecified, not intractable, without status epilepticus (principal); I5A Non-ischemic myocardial injury (non-traumatic); E11.22 Type 2 diabetes mellitus with diabetic chronic kidney disease; I12.0 Hypertensive chronic kidney disease with stage 5 chronic kidney disease or end stage renal disease; N18.6 End stage renal disease; Z99.2 Dependence on renal dialysis; E78.5 Hyperlipidemia, unspecified; Z87.891 Personal history of nicotine dependence; Z95.0 Presence of cardiac pacemaker; Z79.4 Long term (current) use of insulin; Z79.01 Long term (current) use of anticoagulants; E11.42 Type 2 diabetes mellitus with diabetic polyneuropathy
CPT/HCPCS: 80053; 93005; 96365; 96375; 99285; 70450; 71045; 84484; 85025; 93010; J0612; J1953; J2250; J3010

== ENCOUNTER 2023-06-22 19:24 | Emergency (ER) | payer MEDICARE, MEDICAID, SELFPAY ==
[2023-06-22 19:28] VITALS: BP 127/72; PULSE 61; RESP 16; TEMP 36.3; O2SAT 100
--- NOTE | 2023-06-22 19:45 | DI.CT_ITS ---
Exam(s) CT HEAD CERVICAL SPINE WO EXAM: CT HEAD CERVICAL SPINE WO CLINICAL HISTORY: fall, on anticoagulation. TECHNIQUE: Imaging Protocol: Axial computed tomography images with coronal and sagittal reformatted images were created and reviewed COMPARISON: CT CT HEAD WO from 06/13/2023 FINDINGS: Head CT Ventricles and Extra axial spaces: Normal in size and morphology for the patient's age. Hemorrhage: None. Cerebral parenchyma: No evidence of mass or acute infarct. Old right parietal infarct. White ashlyn er changes of small vessel disease. Midline shift: None. Brainstem/Cerebellum: Normal. Calvarium: Normal. Visualized Paranasal sinuses/Mastoids: Clear. Soft tissues: Marked swelling with focal 3 cm hematoma above left orbit. Cervical Spine CT BONES: Vertebral body heights are maintained. Alignment is normal. There is no evidence of acute frac ture. Minimal degenerative disc changes and facet degenerative changes are seen . SOFT TISSUES: No paraspinal hematoma. The airway appears intact. No pneumothorax is seen at the lung apices. Left-sided central venous catheter. Several small thyroid nodules, less than a centimeter in size. No follow-up recommended. IMPRESSION: Head CT: Large focal hematoma above left orbit. No acute intracranial abnormality. C-spine CT: Minimal degenerative changes, no acute abnormality. RADIATION DOSE DELIVERED: Total DLP DATA REPOSITORY: All CT scans at this facility are submitted to the National Radiology Data Registry (NRDR) Dose Index Registry (DIR) with the [employer] ([employer]). RADIATION OPTIMIZATION: All CT scans at this facility use at least one of these dose optimization te chniques: automated exposure control; mA and/or kV adjustment per patient size (includes targeted exa ms where dose is matched to clinical indication); or iterative reconstruction.
--- NOTE | 2023-06-22 20:12 | ED.GENADUL_ITS ---
Discharge Plan Disposition Patient Disposition: Home Condition: Stable Discharge Details Clinical Impression: Head injury, Hematoma Primary Care Provider: Rosaura Fragoso ED Provider: Odalys Finch Home Meds and New Rx's Prescriptions: Continued mirtazapine 15 mg tablet 15 mg PO QHS acetylcysteine [NAC] 600 mg capsule 600 mg PO BID acetaminophen [Acetaminophen Extra Strength] 500 mg tablet 1,000 mg PO BID PRN (Reason: fever or pain) memantine 5 mg tablet 5 mg PO QPM Qty: 30 5RF (DME) Blood Glucose Test strip See Dose Instructions .ROUTE .MEDSUPPLY Qty: 300 3RF Dose Instruction: As directed Rx Instructions: Test TID (DME) Adult Briefs - Large misc See Dose Instructions .ROUTE .MEDSUPPLY Qty: 150 12RF Dose Instruction: As directed Rx Instructions: Change as directed (DME) shower chair with arms, with slide to tub Large See Rx Instructions .Route .MEDSUPPLY Qty: 1 0RF Rx Instructions: As directed (DME) raised toilet seat oblong toilet See Rx Instructions .Route .MEDSUPPLY Qty: 1 0RF Rx Instructions: As directed omeprazole 40 mg capsule,delayed release(DR/EC) 40 mg PO DAILY Qty: 90 3RF lamotrigine 100 mg tablet 100 mg PO BID Patient Comments: Increased to bid at [facility] d/c lorazepam 1 mg tablet 1 mg PO HS Patient Comments: may also take 0.5mg once daily if needed. (reported progress note [facility] 05/02/18) benztropine 0.5 mg tablet 0.5 mg PO HS Rx Instructions: Note dated 02/13/19 [facility] multivitamin [Daily Multi-Vitamin] Tablet 1 tab PO DAILY Qty: 90 3RF cyanocobalamin (vitamin B-12) [Vitamin B-12] 500 mcg tablet 500 mcg PO DAILY nystatin 100,000 unit/gram powder 1 applic topical BID Qty: 60 1RF Rx Instructions: apply liberal amount to affected areas of rash to breasts until resolved Vraylar 1.5 mg capsule 1.5 mg PO DAILY Rx Instructions: as of 10/27/20 w/ permission from Dr. Pedersen via Kath[facility] insulin aspart U-100 [Novolog FlexPen U-100 Insulin] 100 unit/mL (3 mL) insulin pen See Rx Instructions subcut AC Qty: 15 3RF Rx Instructions: 2-10u based on sliding scale before meals. aspirin 81 mg tablet,delayed release (DR/EC) See Rx Instructions .ROUTE .COMPLEX Qty: 90 3RF Dose Instruction: TAKE ONE TABLET BY MOUTH DAILY Rx Instructions: TAKE ONE TABLET BY MOUTH DAILY (DME) Commode See Rx Instructions .Route .MEDSUPPLY Qty: 1 0RF Rx Instructions: Raised toilet seat not safe for the patient. carvedilol 12.5 mg tablet See Rx Instructions .ROUTE .COMPLEX Qty: 180 3RF Dose Instruction: TAKE ONE TABLET BY MOUTH TWO TIMES A DAY WITH MEAL OR FOOD INCREASED BY [facility] 05/26/21 Rx Instructions: TAKE ONE TABLET BY MOUTH TWO TIMES A DAY WITH MEAL OR FOOD INCREASED BY [facility] 05/26/21 polyethylene glycol 3350 17 gram/dose powder 17 g PO DAILY PRN (Reason: constipation) sennosides-docusate sodium [Senna with Docusate Sodium] 8.6-50 mg tablet 2 tab-cap PO BID PRN (Reason: constipation) fosinopril 40 mg tablet 40 mg PO BID lorazepam 0.5 mg tablet 0.5 mg PO Q6H PRN (Reason: anxiety) amlodipine 10 mg tablet See Rx Instructions .ROUTE .COMPLEX Qty: 90 3RF Dose Instruction: TAKE ONE TABLET BY MOUTH EVERY DAY Rx Instructions: TAKE ONE TABLET BY MOUTH EVERY DAY Eliquis 5 mg tablet See Rx Instructions .ROUTE .COMPLEX Qty: 90 1RF Dose Instruction: TAKE 1/2 TABLET BY MOUTH TWO TIMES A DAY Rx Instructions: TAKE 1/2 TABLET BY MOUTH TWO TIMES A DAY (DME) pen needle, diabetic [BD Vane 2nd Gen Pen Needle] 32 gauge x 5/32 needle See Rx Instructions .ROUTE .COMPLEX Qty: 100 3RF Dose Instruction: USE FOUR TIMES A DAY Rx Instructions: USE FOUR TIMES A DAY nystatin 100,000 unit/gram powder 1 applic topical BID Qty: 30 3RF cefadroxil 500 mg capsule 1,000 mg PO .3x/week Rx Instructions: total of 180 days atorvastatin 40 mg tablet See Rx Instructions .ROUTE .COMPLEX Qty: 90 3RF Dose Instruction: TAKE ONE TABLET BY MOUTH EVERY DAY Rx Instructions: TAKE ONE TABLET BY MOUTH EVERY DAY meclizine 12.5 mg tablet See Rx Instructions .ROUTE .COMPLEX Qty: 60 0RF Dose Instruction: TAKE ONE TABLET BY MOUTH THREE TIMES A DAY NEEDED FOR DIZZINESS Rx Instructions: TAKE ONE TABLET BY MOUTH THREE TIMES A DAY NEEDED FOR DIZZINESS insulin glargine [Basaglar KwikPen U-100 Insulin] 100 unit/mL (3 mL) insulin pen See Rx Instructions .ROUTE .COMPLEX Qty: 30 2RF Dose Instruction: INJECT 25 UNITS UNDER SKIN EVERY MORNING Rx Instructions: INJECT 25 UNITS UNDER SKIN EVERY MORNING ondansetron 4 mg tablet,disintegrating 4 mg PO Q8H PRN (Reason: nausea and vomiting) Qty: 30 0RF Discharge Instructions Instructions: Head Injury (ED), Hematoma (ED) Additional Instructions: Hold your Eliquis tonight and tomorrow morning resume tomorrow evening if your hematoma is improving Use ice to the affected area to help reduce swelling After 48 hours you can use heat or ice this might help absorb the hematoma You can expect bruising to extend down into your jaw and neck. Incidental finding on your cervical spine CT scan which should be discussed with your primary care provider for further outpatient follow-up Multinodular appearance of the thyroid gland. Correlation with thyroid ultrasound recommended. Referrals: Rosaura Fragoso NP [Primary Care Provider] - [facility] General Mode of arrival: ambulatory . Date/Time Provider Initiated Documentation: 06/22/23 19:39 . Limitations to Documentation: no limitations . Information obtained by: patient . HPI Narrative: Patient presents for evaluation after a fall injury in her bathroom while she was sitting on the toilet. There was no seizure-like activity. When the family went in for evaluation after hearing her she was awake and oriented and only complaining of left forehead pain. There was no loss of consciousness. There was no other injuries noted. She was really ambulated. She denied any nausea or vomiting. She has not taken her Eliquis yet tonight. She denies any visual disturbances Related Data Home Medications Medication Instructions Recorded Confirmed blood sugar diagnostic (Blood #300 ea 05/06/18 05/08/23 Glucose Test strips) lamotrigine 100 mg tablet 100 mg PO BID 05/09/18 05/08/23 lorazepam 1 mg tablet 1 mg PO HS 05/09/18 05/08/23 diaper,brief,adult,disposable #150 ea 07/25/18 05/08/23 (Adult Briefs - Large) benztropine 0.5 mg tablet 0.5 mg PO HS 03/06/19 05/08/23 multivitamin (Daily Multi-Vitamin 1 tab PO DAILY #90 tabs 05/15/19 05/08/23 tablet) cyanocobalamin (vitamin B-12) 500 500 mcg PO DAILY 08/05/19 05/08/23 mcg tablet (Vitamin B-12) nystatin 100,000 unit/gram topical 1 applic topical BID #60 grams 02/04/20 05/08/23 powder acetylcysteine 600 mg capsule (NAC) 600 mg PO BID 02/11/20 05/08/23 mirtazapine 15 mg tablet 15 mg PO QHS 02/11/20 05/08/23 acetaminophen 500 mg tablet 1,000 mg PO BID PRN fever or pain 07/06/20 05/08/23 (Acetaminophen Extra Strength) cariprazine 1.5 mg capsule 1.5 mg PO DAILY 10/27/20 05/08/23 (Vraylar) insulin aspart U-100 100 unit/mL See Rx Instructions subcut AC #15 07/03/22 05/08/23 (3 mL) subcutaneous pen (Novolog mL FlexPen U-100 Insulin aspart) omeprazole 40 mg capsule,delayed 40 mg PO DAILY #90 caps 07/13/22 05/08/23 release raised toilet seat #1 ea 07/13/22 05/08/23 shower chair with arms, with slide #1 ea 07/13/22 05/08/23 to tub aspirin 81 mg tablet,delayed See Rx Instructions .Route 07/20/22 05/08/23 release .COMPLEX #90 tabs Commode #1 ea 08/21/22 05/08/23 carvedilol 12.5 mg tablet See Rx Instructions .Route 08/28/22 05/08/23 .COMPLEX #180 tabs polyethylene glycol 3350 17 17 g PO DAILY PRN constipation 11/06/22 05/08/23 gram/dose oral powder sennosides 8.6 mg-docusate sodium 2 tab-cap PO BID PRN constipation 11/06/22 05/08/23 50 mg tablet (Senna with Docusate Sodium) ondansetron 4 mg disintegrating 4 mg PO Q8H PRN nausea and 11/12/22 05/08/23 tablet vomiting #30 tabs amlodipine 10 mg tablet See Rx Instructions .Route 12/04/22 05/08/23 .COMPLEX #90 tabs fosinopril 40 mg tablet 40 mg PO BID 12/04/22 05/08/23 lorazepam 0.5 mg tablet 0.5 mg PO Q6H PRN anxiety 12/04/22 05/08/23 apixaban 5 mg tablet (Eliquis) See Rx Instructions .Route 12/18/22 05/08/23 .COMPLEX #90 tabs pen needle, diabetic 32 gauge x #100 ea 03/05/23 05/08/23 (BD Vane 2nd Gen Pen Needle) nystatin 100,000 unit/gram topical 1 applic topical BID under breasts 03/19/23 05/08/23 powder #30 grams cefadroxil 500 mg capsule 1,000 mg PO .3x/week 03/22/23 05/08/23 atorvastatin 40 mg tablet See Rx Instructions .Route 04/02/23 05/08/23 .COMPLEX #90 tabs memantine 5 mg tablet 5 mg PO QPM #30 tabs 05/08/23 05/08/23 meclizine 12.5 mg tablet See Rx Instructions .Route 05/09/23 .COMPLEX #60 tabs insulin glargine 100 unit/mL (3 See Rx Instructions .Route 05/28/23 mL) subcutaneous pen (Basaglar .COMPLEX #30 mL KwikPen U-100 Insulin) Previous Rx's Medication Instructions Recorded blood sugar diagnostic (Blood #300 ea 05/06/18 Glucose Test strips) diaper,brief,adult,disposable #150 ea 07/25/18 (Adult Briefs - Large) multivitamin (Daily Multi-Vitamin 1 tab PO DAILY #90 tabs 05/15/19 tablet) nystatin 100,000 unit/gram topical 1 applic topical BID #60 grams 02/04/20 powder insulin aspart U-100 100 unit/mL See Rx Instructions subcut AC #15 07/03/22 (3 mL) subcutaneous pen (Novolog mL FlexPen U-100 Insulin aspart) omeprazole 40 mg capsule,delayed 40 mg PO DAILY #90 caps 07/13/22 release raised toilet seat #1 ea 07/13/22 shower chair with arms, with slide #1 ea 07/13/22 to tub aspirin 81 mg tablet,delayed See Rx Instructions .Route 07/20/22 release .COMPLEX #90 tabs Commode #1 ea 08/21/22 carvedilol 12.5 mg tablet See Rx Instructions .Route 08/28/22 .COMPLEX #180 tabs ondansetron 4 mg disintegrating 4 mg PO Q8H PRN nausea and 11/12/22 tablet vomiting #30 tabs amlodipine 10 mg tablet See Rx Instructions .Route 12/04/22 .COMPLEX #90 tabs apixaban 5 mg tablet (Eliquis) See Rx Instructions .Route 12/18/22 .COMPLEX #90 tabs pen needle, diabetic 32 gauge x #100 ea 03/05/23 (BD Vane 2nd Gen Pen Needle) nystatin 100,000 unit/gram topical 1 applic topical BID under breasts 03/19/23 powder #30 grams atorvastatin 40 mg tablet See Rx Instructions .Route 04/02/23 .COMPLEX #90 tabs memantine 5 mg tablet 5 mg PO QPM #30 tabs 05/08/23 meclizine 12.5 mg tablet See Rx Instructions .Route 05/09/23 .COMPLEX #60 tabs insulin glargine 100 unit/mL (3 See Rx Instructions .Route 05/28/23 mL) subcutaneous pen (Basaglar .COMPLEX #30 mL KwikPen U-100 Insulin) Allergies Allergy/AdvReac Type Severity Reaction Status Date / Time aripiprazole [From Abilify] Allergy Severe tardive Verified 06/22/23 19:34 dyskinesia duloxetine HCl Allergy Severe Hives Verified 06/22/23 19:34 [From Cymbalta] oxycodone Allergy Severe Hives Verified 06/22/23 19:34 Sulfa (Sulfonamide Allergy Severe Skin Rash Verified 06/22/23 19:34 Antibiotics) acetaminophen [From Vicodin] Allergy Intermediate vomiting Verified 06/22/23 19:34 citalopram Allergy Intermediate HIVES Verified 06/22/23 19:34 fesoterodine Allergy Intermediate HIVES Verified 06/22/23 19:34 hydrocodone bitartrate Allergy Intermediate vomiting Verified 06/22/23 19:34 [From Vicodin] latex Allergy Intermediate Hives Verified 06/22/23 19:34 morphine Allergy Intermediate unknown Verified 06/22/23 19:34 rabies vaccine, human Allergy Intermediate Hives Verified 06/22/23 19:34 diploid cell [Rabies Vaccine,Human Diploid] Tetanus Vaccines and Toxoid Allergy Intermediate Swelling/Ed Verified 06/22/23 19:34 [Tetanus Vaccines & Toxoid] ghulam amitriptyline Allergy Unknown unknown Verified 06/22/23 19:34 bupropion HCl Allergy Unknown unknown Verified 06/22/23 19:34 [From Wellbutrin] celecoxib [From Celebrex] Allergy Unknown unknown Verified 06/22/23 19:34 diazepam [From Valium] Allergy Unknown unknown Verified 06/22/23 19:34 divalproex sodium Allergy Unknown unknown Verified 06/22/23 19:34 [From Depakote] escitalopram oxalate Allergy Unknown unknown Verified 06/22/23 19:34 [From Lexapro] fluoxetine HCl [From Prozac] Allergy Unknown unknown Verified 06/22/23 19:34 fosphenytoin sodium Allergy Unknown unknown Verified 06/13/23 11:39 [From Cerebyx] nicotine [From Nicoderm CQ] Allergy Unknown rash/hives Verified 06/13/23 11:39 paroxetine HCl [From Paxil] Allergy Unknown unknown Verified 06/13/23 11:39 phenytoin sodium Allergy Unknown unknown Verified 06/13/23 11:39 [From Dilantin] phenytoin sodium extended Allergy Unknown unknown Verified 06/13/23 11:39 [From Dilantin] prednisone Allergy Unknown unknown Verified 06/13/23 11:39 procaine HCl [From Novocain] Allergy Unknown unknown Verified 06/13/23 11:39 quetiapine Allergy Unknown unknown Verified 06/13/23 11:39 quetiapine fumarate Allergy Unknown Other (See Verified 06/13/23 11:39 [From Seroquel] Comment) risperidone [From Risperdal] Allergy Unknown Other (See Verified 06/13/23 11:39 Comment) sertraline Allergy Unknown Hives Verified 06/13/23 11:39 trazodone Allergy Unknown Other (See Verified 06/13/23 11:39 Comment) venlafaxine HCl Allergy Unknown Other (See Verified 06/13/23 11:39 [From Effexor] Comment) warfarin [From Coumadin] Allergy none Verified 06/13/23 11:39 listed on referral thiothixene [Thiothixene] AdvReac Severe Nausea Verified 06/13/23 11:39 topiramate AdvReac Intermediate Nausea Verified 06/13/23 11:39 gabapentin AdvReac Unknown Severe Verified 06/13/23 11:39 dizziness, runs; vomiting lidocaine AdvReac Unknown Nausea Verified 06/13/23 11:39 ibuprofen AdvReac headache Verified 06/13/23 11:39 and nausea melatonin AdvReac nightmares Verified 06/13/23 11:39 varenicline tartrate AdvReac Psychosis Verified 06/13/23 11:39 [From Chantix] ABSOLUTE CONTRAINDICATION AdvReac Severe Headache Uncoded 06/13/23 11:39 FOR MRI (disconnected RV pacer lead) general anesthia AdvReac Unknown Other (See Uncoded 06/13/23 11:39 Comment) General Stated Complaint: HeadInjury ASIM: 3 Review of Systems All systems reviewed & are unremarkable except as noted in HPI and below Exam Narrative Exam Narrative: Female older appearing than stated age with large hematoma over her left eye. No laceration or abrasion. Eyes otherwise normal appearance nonicteric noninjected pupils equal and reactive to light EOMs are intact. Denies any C- spine tenderness on palpation she has full range of motion of her neck and there is no JVD cardiovascular regular rate and rhythm her respirations are even and unlabored her abdomen is soft and nontender his extremities are without edema moves all extremities skin with no rashes or lesions other than 3 cm hematoma over her left eye. Course Vital Signs Vital signs: Vital Signs Temperature 36.3 C L 06/22/23 19:28 Pulse 61 06/22/23 19:28 Respiratory Rate 16 06/22/23 19:28 Blood Pressure 127/72 06/22/23 19:28 Pulse Oximetry 100 06/22/23 19:28 Temperature 36.3 C L 06/22/23 19:28 Temperature Source Temporal Artery Scan 06/22/23 19:28 Pulse 61 06/22/23 19:28 Respiratory Rate 16 06/22/23 19:28 Respiratory Effort Normal 06/22/23 19:46 Blood Pressure 127/72 06/22/23 19:28 Pulse Oximetry 100 06/22/23 19:28 Medical Decision Making Patient with a reported mechanical fall isolated injury to the head no loss of consciousness no symptoms of visual disturbance nausea or vomiting. No pain to her eye she denies C-spine tenderness but will CAT scan her head as she is on anticoagulation with added C-spine in the abundance of caution. Ice pack has been applied. CAT scan results have been reviewed and shows no acute intracranial process. Incidental finding of nodular thyroid with recommendations for further outpatient evaluation by ultrasound. She was advised to hold her Eliquis tonight and tomorrow morning and to resume tomorrow night if her symptoms are improving. She was advised to return here sooner for new or worsening symptoms. She remains hemodynamically stable with no new complaints. Stable for discharge to home with outpatient follow-up Medical Records Medical records reviewed: Yes I reviewed the patient's medical records. Imaging Data Radiologic Study: Imaging: CT Scan Radiologist's impression: Exam(s) PROCEDURE INFORMATION: Exam: CT Head Without Contrast Exam date and time: 06/22/2023 8:21 PM Age: 62 years old Clinical indication: Injury or trauma; Blunt trauma (contusions or hematomas); Consciousness not specified; Injury details: Fall, on anticoagulation TECHNIQUE: Imaging protocol: Computed tomography of the head without contrast. COMPARISON: CT HEAD WO 06/13/2023 1:51 PM FINDINGS: Brain: Moderate generalized cerebral atrophy. Periventricular white matter hypoattenuation compatible with chronic microvascular ischemic changes. Small area of encephalomalacia in the mid right cerebrum. No intracranial mass, hemorrhage or evidence of acute ischemia. Cerebral ventricles: No ventriculomegaly. Paranasal sinuses: Visualized sinuses are unremarkable. No fluid levels. Mastoid air cells: Visualized mastoid air cells are well aerated. Bones/joints: Unremarkable. No acute fracture. Soft tissues: Large superficial left supraorbital soft tissue hematoma measuring approximately 3 cm in greatest diameter. Vasculature: Moderate atherosclerotic calcification of the carotid siphons. IMPRESSION: No acute intracranial abnormality. Left supraorbital hematoma. PROCEDURE INFORMATION: Exam: CT Cervical Spine Without Contrast Exam date and time: 06/22/2023 8:21 PM Age: 62 years old Clinical indication: Injury or trauma; Blunt trauma (contusions or hematomas); Consciousness not specified; Injury details: Fall, on anticoagulation TECHNIQUE: Imaging protocol: Computed tomography of the cervical spine without contrast. COMPARISON: CT HEAD CERVICAL SPINE WO 04/18/2023 12:31 PM FINDINGS: Tubes, catheters and devices: Left IJ hemodialysis catheter in place. Bones/joints: No acute fracture. Normal alignment. No significant disc bulge or herniation. No severe spinal canal stenosis. No significant neural foraminal narrowing. Lungs: Lung apices are normal. Thyroid: Several small hypodense thyroid nodules or cysts noted. Thyroid gland appears normal in size. Soft tissues: Unremarkable. IMPRESSION: No acute posttraumatic changes. Multinodular appearance of the thyroid gland. Correlation with thyroid ultrasound recommended. Dictated and Authenticated by: Jose Long MD. Lab Data Lab results reviewed: Yes I reviewed the patient's lab results. 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 11/15/21 Decision from Transplant Eval that pt is not a candidate for kidney transplant Dysuria (Acute) Memory deficit (Acute) Solitary left kidney (Acute) Decreased GFR (Acute) Viral syndrome (Acute) Bilateral leg edema (Acute) Colonoscopy refused (Acute) Urinary incontinence (Acute 02/11/15) Urge incontinence (Chronic) Elevated cholesterol (Chronic) Fracture of radial neck, left, closed (Acute) H/O endarterectomy (Chronic) Non-adherence to medical treatment (Acute) Type 2 diabetes mellitus (Chronic) Sinus bradycardia (Chronic) S/p pacemaker. Generator change 12/2013 [facility] [place] Pocket revision & new RV lead 10/2014 [facility]. Postmenopausal (Chronic) LMP ~2004 Paranoia (Chronic 12/19/16) Meralgia paresthetica, right lower limb (Chronic 11/05/15) Dr. 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 Congenital single kidney (Chronic 03/08/15) by xray from [facility] 03/17/09 in scanned records Adult BMI > 30 (Chronic 06/07/15) Medical History Toe pain, bilateral 06/08/22 Rd Uriarte DPM Onychomycosis 06/08/22 Rd Uriarte DPM Type 2 diabetes mellitus with diabetic polyneuropathy Depression End stage renal disease 07/21/20 [facility] Hemodialysis patient Hypertension (~06/20/19) Goal <130/80 [facility] Seizure Sinus node dysfunction (10/22/14) Pacemaker (10/22/14) for bradycardia and sinus node dysfunction DDD pacer 2004 in [place] Medtronic dual lead programmed VVI - PG replaced 01/01/2014 [facility] Old RV lead abandoned PTSD (post-traumatic stress disorder) (05/28/17) PAD (peripheral artery disease) (08/13/17) Stroke R parietal; asymptomatic; Bipolar 1 disorder Surgical History S/P angioplasty (01/30/18) left femoral endarterectomy and patch angioplasty, Aortogram, Over the wire Left ABF graft thrombectomy, Open ledt ABF thrombectomy, left ABF graft stent (VBX 8x39) S/P aortobifemoral bypass surgery aortobifemoral bypass (09/07/17) [facility] vascular. August 2017 Pacemaker (~2004) [place] section (~1985) Family History Mother No problems noted. Father No problems noted. Sister No problems noted. Social History Smoking/Tobacco Use Status: Former Tobacco Use Quit Date: 03/03/21 Pack-years: 37 Smoking risk assessment performed?: Yes Alcohol Intake: never Drug use: Never Substance use type: does not use Adopted: No Housing: house Number of Children: 1 Do you need help understanding health information?: Always current occupation: disabliilty What type of physical activity do you participate in: walking Duration: 15-30 minutes/day Frequency: 3-4 times per week Do you feel safe at home: Yes Do you feel safe in your relationship?: Yes Additional Social history: lives with care provider - FELIX BEASLEY 04/18/23
--- NOTE | 2023-06-22 21:07 | DI.VRAD_ITS ---
PROCEDURE INFORMATION: Exam: CT Head Without Contrast Exam date and time: 06/22/2023 8:21 PM Age: 62 years old Clinical indication: Injury or trauma; Blunt trauma (contusions or hematomas); Consciousness not specified; Injury details: Fall, on anticoagulation TECHNIQUE: Imaging protocol: Computed tomography of the head without contrast. COMPARISON: CT HEAD WO 06/13/2023 1:51 PM FINDINGS: Brain: Moderate generalized cerebral atrophy. Periventricular white matter hypoattenuation compatible with chronic microvascular ischemic changes. Small area of encephalomalacia in the mid right cerebrum. No intracranial mass, hemorrhage or evidence of acute ischemia. Cerebral ventricles: No ventriculomegaly. Paranasal sinuses: Visualized sinuses are unremarkable. No fluid levels. Mastoid air cells: Visualized mastoid air cells are well aerated. Bones/joints: Unremarkable. No acute fracture. Soft tissues: Large superficial left supraorbital soft tissue hematoma measuring approximately 3 cm in greatest diameter. Vasculature: Moderate atherosclerotic calcification of the carotid siphons. IMPRESSION: No acute intracranial abnormality. Left supraorbital hematoma. PROCEDURE INFORMATION: Exam: CT Cervical Spine Without Contrast Exam date and time: 06/22/2023 8:21 PM Age: 62 years old Clinical indication: Injury or trauma; Blunt trauma (contusions or hematomas); Consciousness not specified; Injury details: Fall, on anticoagulation TECHNIQUE: Imaging protocol: Computed tomography of the cervical spine without contrast. COMPARISON: CT HEAD CERVICAL SPINE WO 04/18/2023 12:31 PM FINDINGS: Tubes, catheters and devices: Left IJ hemodialysis catheter in place. Bones/joints: No acute fracture. Normal alignment. No significant disc bulge or herniation. No severe spinal canal stenosis. No significant neural foraminal narrowing. Lungs: Lung apices are normal. Thyroid: Several small hypodense thyroid nodules or cysts noted. Thyroid gland appears normal in size. Soft tissues: Unremarkable. IMPRESSION: No acute posttraumatic changes. Multinodular appearance of the thyroid gland. Correlation with thyroid ultrasound recommended. Dictated and Authenticated by: Jose Long MD. Ordering:JAIME Morrow MD
== END 2023-06-22 21:39 | disposition home or self-care (01) ==
PROVIDERS: Emergency Provider Nurse Practitioner Acute Care; PCP Nurse Practitioner
DX: S00.83XA Contusion of other part of head, initial encounter (principal); R11.10 Vomiting, unspecified; I12.0 Hypertensive chronic kidney disease with stage 5 chronic kidney disease or end stage renal disease; E11.22 Type 2 diabetes mellitus with diabetic chronic kidney disease; N18.6 End stage renal disease; Z99.2 Dependence on renal dialysis; Z79.01 Long term (current) use of anticoagulants; Z79.4 Long term (current) use of insulin; E04.1 Nontoxic single thyroid nodule; Z86.73 Personal history of transient ischemic attack (TIA), and cerebral infarction without residual deficits; Z95.0 Presence of cardiac pacemaker; W18.11XA Fall from or off toilet without subsequent striking against object, initial encounter; Y93.E8 Activity, other personal hygiene; Y92.012 Bathroom of single-family (private) house as the place of occurrence of the external cause
CPT/HCPCS: 99284; 70450; 72125

== ENCOUNTER 2023-07-23 14:31 | Emergency (ER) | payer MEDICARE, MEDICAID, SELFPAY ==
[2023-07-23] VITALS (22 sets, daily range): BP systolic 152–269; BP diastolic 36–210; PULSE 60–89; RESP 0–20; TEMP 36.8; O2SAT 95–97
--- NOTE | 2023-07-23 14:15 | RT.EKG_ITS ---
APPROVED REPORT Exam: Resting ECG Reason for Exam: Chest Pain Patient Location: E HR:62 bpm ECG Measurements Heart Rate 62 AXIS [place] 79 P 63 QRSd 128 QRS -42 QT 446 T 116 QTc 454 Conclusion Sinus rhythm...normal P axis, V-rate 60- 99 Probable left atrial enlargement...P >50mS, <-0.10mV V1 LVH with secondary repolarization abnormality...multi-LVH criteria, abnrm ST-T sinus rhythm, left axis, t wave inversions lateral leads
--- NOTE | 2023-07-23 14:29 | W.ED.GENAD ---
Discharge Plan Disposition Patient Disposition: Home Condition: Good Discharge Details Clinical Impression: Chest pain, ESRD (end stage renal disease) on dialysis, Pneumonia Primary Care Provider: Rosaura Fragoso ED Provider: Diamond Matthews Home Meds and New Rx's Prescriptions: New levofloxacin 750 mg tablet 750 mg PO DAILY Qty: 10 0RF Continued mirtazapine 15 mg tablet 15 mg PO QHS acetylcysteine [NAC] 600 mg capsule 600 mg PO BID acetaminophen [Acetaminophen Extra Strength] 500 mg tablet 1,000 mg PO BID PRN (Reason: fever or pain) memantine 5 mg tablet 5 mg PO BID Qty: 180 3RF (DME) Blood Glucose Test strip See Dose Instructions .ROUTE .MEDSUPPLY Qty: 300 3RF Dose Instruction: As directed Rx Instructions: Test TID (DME) Adult Briefs - Large misc See Dose Instructions .ROUTE .MEDSUPPLY Qty: 150 12RF Dose Instruction: As directed Rx Instructions: Change as directed (DME) shower chair with arms, with slide to tub Large See Rx Instructions .Route .MEDSUPPLY Qty: 1 0RF Rx Instructions: As directed (DME) raised toilet seat oblong toilet See Rx Instructions .Route .MEDSUPPLY Qty: 1 0RF Rx Instructions: As directed omeprazole 40 mg capsule,delayed release(DR/EC) 40 mg PO DAILY Qty: 90 3RF lamotrigine 100 mg tablet 100 mg PO BID Patient Comments: Increased to bid at [place] d/c lorazepam 1 mg tablet 1 mg PO HS Patient Comments: may also take 0.5mg once daily if needed. (reported progress note [facility] 05/02/18) benztropine 0.5 mg tablet 0.5 mg PO HS Rx Instructions: Note dated 02/13/19 [facility] cgc multivitamin [Daily Multi-Vitamin] Tablet 1 tab PO DAILY Qty: 90 3RF cyanocobalamin (vitamin B-12) [Vitamin B-12] 500 mcg tablet 500 mcg PO DAILY nystatin 100,000 unit/gram powder 1 applic topical BID Qty: 60 1RF Rx Instructions: apply liberal amount to affected areas of rash to breasts until resolved Vraylar 1.5 mg capsule 1.5 mg PO DAILY Rx Instructions: as of 10/27/20 w/ permission from Dr. Pedersen via [facility] [place] insulin aspart U-100 [Novolog FlexPen U-100 Insulin] 100 unit/mL (3 mL) insulin pen See Rx Instructions subcut AC Qty: 15 3RF Rx Instructions: 2-10u based on sliding scale before meals. aspirin 81 mg tablet,delayed release (DR/EC) See Rx Instructions .ROUTE .COMPLEX Qty: 90 3RF Dose Instruction: TAKE ONE TABLET BY MOUTH DAILY Rx Instructions: TAKE ONE TABLET BY MOUTH DAILY (DME) Commode See Rx Instructions .Route .MEDSUPPLY Qty: 1 0RF Rx Instructions: Raised toilet seat not safe for the patient. carvedilol 12.5 mg tablet See Rx Instructions .ROUTE .COMPLEX Qty: 180 3RF Dose Instruction: TAKE ONE TABLET BY MOUTH TWO TIMES A DAY WITH MEAL OR FOOD INCREASED BY [facility] [place] 05/26/21 Rx Instructions: TAKE ONE TABLET BY MOUTH TWO TIMES A DAY WITH MEAL OR FOOD INCREASED BY [facility] [place] 05/26/21 polyethylene glycol 3350 17 gram/dose powder 17 g PO DAILY PRN (Reason: constipation) sennosides-docusate sodium [Senna with Docusate Sodium] 8.6-50 mg tablet 2 tab-cap PO BID PRN (Reason: constipation) fosinopril 40 mg tablet 40 mg PO BID lorazepam 0.5 mg tablet 0.5 mg PO Q6H PRN (Reason: anxiety) amlodipine 10 mg tablet See Rx Instructions .ROUTE .COMPLEX Qty: 90 3RF Dose Instruction: TAKE ONE TABLET BY MOUTH EVERY DAY Rx Instructions: TAKE ONE TABLET BY MOUTH EVERY DAY (DME) pen needle, diabetic [BD Vane 2nd Gen Pen Needle] 32 gauge x 5/32 needle See Rx Instructions .ROUTE .COMPLEX Qty: 100 3RF Dose Instruction: USE FOUR TIMES A DAY Rx Instructions: USE FOUR TIMES A DAY cefadroxil 500 mg capsule 1,000 mg PO .3x/week Rx Instructions: total of 180 days atorvastatin 40 mg tablet See Rx Instructions .ROUTE .COMPLEX Qty: 90 3RF Dose Instruction: TAKE ONE TABLET BY MOUTH EVERY DAY Rx Instructions: TAKE ONE TABLET BY MOUTH EVERY DAY meclizine 12.5 mg tablet See Rx Instructions .ROUTE .COMPLEX Qty: 60 0RF Dose Instruction: TAKE ONE TABLET BY MOUTH THREE TIMES A DAY NEEDED FOR DIZZINESS Rx Instructions: TAKE ONE TABLET BY MOUTH THREE TIMES A DAY NEEDED FOR DIZZINESS insulin glargine [Basaglar KwikPen U-100 Insulin] 100 unit/mL (3 mL) insulin pen See Rx Instructions .ROUTE .COMPLEX Qty: 30 2RF Dose Instruction: INJECT 25 UNITS UNDER SKIN EVERY MORNING Rx Instructions: INJECT 25 UNITS UNDER SKIN EVERY MORNING Eliquis 5 mg tablet See Rx Instructions .ROUTE .COMPLEX Qty: 90 1RF Dose Instruction: TAKE 1/2 TABLET BY MOUTH TWO TIMES A DAY Rx Instructions: TAKE 1/2 TABLET BY MOUTH TWO TIMES A DAY ondansetron 4 mg tablet,disintegrating 4 mg PO Q8H PRN (Reason: nausea and vomiting) Qty: 30 0RF Discharge Instructions Instructions: Chest Pain (ED) Additional Instructions: It is possible you have a small pneumonia based on your chest xray- take the antibiotic you were prescribed once a day for the next 10 days. Make sure you go to your dialysis session in Sunday- it is important that you get a full session done. You will need to follow up with cardiology- they will call you to schedule an appointment. Call your primary care doctor tomorrow to schedule an appointment for this week to followup on your visit today. Return to the emergency department for new or worsening symptoms including chest pain, shortness of breath, feeling like you are going to pass out, or if you have any other concerns. Referrals: Rosaura Fragoso NP [Primary Care Provider] - [facility] General Mode of arrival: EMS. Date/Time Provider Initiated Documentation: 07/23/23 14:34. Limitations to Documentation: no limitations. Information obtained by: patient, EMS and old records reviewed. HPI Narrative: 62yo F with hx CKD on dialysis M/W/F, HTN, pacer, PVD s/p multiple procedures/grafts on eliquis for graft patency, T2DM, vertigo, bipolar, PTSD, presenting via EMS from dialysis for chest pain. History from patient, EMS, [facility] PCP clinic visit notes. ~ longterm through dialysis patient noted dull substernal chest pain radiating to her left chest, 6/10 in severity, with no alleviating or aggravting factors. Recieved 325 of ASA prior to arrival. Pain has now improved, 1-2/10. No shortness of breath or lightheadeness at any point. The pain was not pleuritic. She completed her last dialysis session on Sunday. She is otherwise in her usual state of health with no fevers, chills, rash, nausea, vomiting, abdominal pain, flank pain, LE edema, or other concerns. Related Data Home Medications Medication Instructions Recorded Confirmed blood sugar diagnostic (Blood #300 ea 05/06/18 07/23/23 Glucose Test strips) lamotrigine 100 mg tablet 100 mg PO BID 05/09/18 07/23/23 lorazepam 1 mg tablet 1 mg PO HS 05/09/18 07/23/23 diaper,brief,adult,disposable #150 ea 07/25/18 07/23/23 (Adult Briefs - Large) benztropine 0.5 mg tablet 0.5 mg PO HS 03/06/19 07/23/23 multivitamin (Daily Multi-Vitamin 1 tab PO DAILY #90 tabs 05/15/19 07/23/23 tablet) cyanocobalamin (vitamin B-12) 500 500 mcg PO DAILY 08/05/19 07/23/23 mcg tablet (Vitamin B-12) nystatin 100,000 unit/gram topical 1 applic topical BID #60 grams 02/04/20 07/23/23 powder acetylcysteine 600 mg capsule (NAC) 600 mg PO BID 02/11/20 07/23/23 mirtazapine 15 mg tablet 15 mg PO QHS 02/11/20 07/23/23 acetaminophen 500 mg tablet 1,000 mg PO BID PRN fever or pain 07/06/20 07/23/23 (Acetaminophen Extra Strength) cariprazine 1.5 mg capsule 1.5 mg PO DAILY 10/27/20 07/23/23 (Vraylar) insulin aspart U-100 100 unit/mL See Rx Instructions subcut AC #15 07/03/22 07/23/23 (3 mL) subcutaneous pen (Novolog mL FlexPen U-100 Insulin aspart) omeprazole 40 mg capsule,delayed 40 mg PO DAILY #90 caps 07/13/22 07/23/23 release raised toilet seat #1 ea 07/13/22 07/23/23 shower chair with arms, with slide #1 ea 07/13/22 07/23/23 to tub aspirin 81 mg tablet,delayed See Rx Instructions .Route 07/20/22 07/23/23 release .COMPLEX #90 tabs Commode #1 ea 08/21/22 07/23/23 carvedilol 12.5 mg tablet See Rx Instructions .Route 08/28/22 07/23/23 .COMPLEX #180 tabs polyethylene glycol 3350 17 17 g PO DAILY PRN constipation 11/06/22 07/23/23 gram/dose oral powder sennosides 8.6 mg-docusate sodium 2 tab-cap PO BID PRN constipation 11/06/22 07/23/23 50 mg tablet (Senna with Docusate Sodium) ondansetron 4 mg disintegrating 4 mg PO Q8H PRN nausea and 11/12/22 07/23/23 tablet vomiting #30 tabs amlodipine 10 mg tablet See Rx Instructions .Route 12/04/22 07/23/23 .COMPLEX #90 tabs fosinopril 40 mg tablet 40 mg PO BID 12/04/22 07/23/23 lorazepam 0.5 mg tablet 0.5 mg PO Q6H PRN anxiety 12/04/22 07/23/23 pen needle, diabetic 32 gauge x #100 ea 03/05/23 07/23/23 (BD Vane 2nd Gen Pen Needle) cefadroxil 500 mg capsule 1,000 mg PO .3x/week 03/22/23 07/23/23 atorvastatin 40 mg tablet See Rx Instructions .Route 04/02/23 07/23/23 .COMPLEX #90 tabs meclizine 12.5 mg tablet See Rx Instructions .Route 05/09/23 07/23/23 .COMPLEX #60 tabs insulin glargine 100 unit/mL (3 See Rx Instructions .Route 05/28/23 07/23/23 mL) subcutaneous pen (Basaglar .COMPLEX #30 mL KwikPen U-100 Insulin) apixaban 5 mg tablet (Eliquis) See Rx Instructions .Route 06/28/23 07/23/23 .COMPLEX #90 tabs memantine 5 mg tablet 5 mg PO BID #180 tabs 07/02/23 07/23/23 levofloxacin 750 mg tablet 750 mg PO DAILY #10 tabs 07/23/23 Previous Rx's Medication Instructions Recorded blood sugar diagnostic (Blood #300 ea 05/06/18 Glucose Test strips) diaper,brief,adult,disposable #150 ea 07/25/18 (Adult Briefs - Large) multivitamin (Daily Multi-Vitamin 1 tab PO DAILY #90 tabs 05/15/19 tablet) nystatin 100,000 unit/gram topical 1 applic topical BID #60 grams 02/04/20 powder insulin aspart U-100 100 unit/mL See Rx Instructions subcut AC #15 07/03/22 (3 mL) subcutaneous pen (Novolog mL FlexPen U-100 Insulin aspart) omeprazole 40 mg capsule,delayed 40 mg PO DAILY #90 caps 07/13/22 release raised toilet seat #1 ea 07/13/22 shower chair with arms, with slide #1 ea 07/13/22 to tub aspirin 81 mg tablet,delayed See Rx Instructions .Route 07/20/22 release .COMPLEX #90 tabs Commode #1 ea 08/21/22 carvedilol 12.5 mg tablet See Rx Instructions .Route 08/28/22 .COMPLEX #180 tabs ondansetron 4 mg disintegrating 4 mg PO Q8H PRN nausea and 11/12/22 tablet vomiting #30 tabs amlodipine 10 mg tablet See Rx Instructions .Route 12/04/22 .COMPLEX #90 tabs pen needle, diabetic 32 gauge x #100 ea 03/05/2332 (BD Vane 2nd Gen Pen Needle) atorvastatin 40 mg tablet See Rx Instructions .Route 04/02/23 .COMPLEX #90 tabs meclizine 12.5 mg tablet See Rx Instructions .Route 05/09/23 .COMPLEX #60 tabs insulin glargine 100 unit/mL (3 See Rx Instructions .Route 05/28/23 mL) subcutaneous pen (Basaglar .COMPLEX #30 mL KwikPen U-100 Insulin) apixaban 5 mg tablet (Eliquis) See Rx Instructions .Route 06/28/23 .COMPLEX #90 tabs memantine 5 mg tablet 5 mg PO BID #180 tabs 07/02/23 levofloxacin 750 mg tablet 750 mg PO DAILY #10 tabs 07/23/23 Allergies Allergy/AdvReac Type Severity Reaction Status Date / Time aripiprazole [From Abilify] Allergy Severe tardive Verified 07/10/23 12:03 dyskinesia duloxetine HCl Allergy Severe Hives Verified 07/10/23 12:03 [From Cymbalta] oxycodone Allergy Severe Hives Verified 07/10/23 12:03 Sulfa (Sulfonamide Allergy Severe Skin Rash Verified 07/10/23 12:03 Antibiotics) acetaminophen [From Vicodin] Allergy Intermediate vomiting Verified 07/10/23 12:03 citalopram Allergy Intermediate HIVES Verified 07/10/23 12:03 fesoterodine Allergy Intermediate HIVES Verified 07/10/23 12:03 hydrocodone bitartrate Allergy Intermediate vomiting Verified 07/10/23 12:03 [From Vicodin] latex Allergy Intermediate Hives Verified 07/10/23 12:03 morphine Allergy Intermediate unknown Verified 07/10/23 12:03 rabies vaccine, human Allergy Intermediate Hives Verified 07/10/23 12:03 diploid cell [Rabies Vaccine,Human Diploid] Tetanus Vaccines and Toxoid Allergy Intermediate Swelling/Ed Verified 07/10/23 12:03 [Tetanus Vaccines & Toxoid] ghulam amitriptyline Allergy Unknown unknown Verified 07/10/23 12:03 bupropion HCl Allergy Unknown unknown Verified 07/10/23 12:03 [From Wellbutrin] celecoxib [From Celebrex] Allergy Unknown unknown Verified 07/10/23 12:03 diazepam [From Valium] Allergy Unknown unknown Verified 07/10/23 12:03 divalproex sodium Allergy Unknown unknown Verified 07/10/23 12:03 [From Depakote] escitalopram oxalate Allergy Unknown unknown Verified 07/10/23 12:03 [From Lexapro] fluoxetine HCl [From Prozac] Allergy Unknown unknown Verified 07/10/23 12:03 fosphenytoin sodium Allergy Unknown unknown Verified 07/10/23 12:03 [From Cerebyx] nicotine [From Nicoderm CQ] Allergy Unknown rash/hives Verified 07/10/23 12:03 paroxetine HCl [From Paxil] Allergy Unknown unknown Verified 07/10/23 12:03 phenytoin sodium Allergy Unknown unknown Verified 07/10/23 12:03 [From Dilantin] phenytoin sodium extended Allergy Unknown unknown Verified 07/10/23 12:03 [From Dilantin] prednisone Allergy Unknown unknown Verified 07/10/23 12:03 procaine HCl [From Novocain] Allergy Unknown unknown Verified 07/10/23 12:03 quetiapine Allergy Unknown unknown Verified 07/10/23 12:03 quetiapine fumarate Allergy Unknown Other (See Verified 07/10/23 12:03 [From Seroquel] Comment) risperidone [From Risperdal] Allergy Unknown Other (See Verified 07/10/23 12:03 Comment) sertraline Allergy Unknown Hives Verified 07/10/23 12:03 trazodone Allergy Unknown Other (See Verified 07/10/23 12:03 Comment) venlafaxine HCl Allergy Unknown Other (See Verified 07/10/23 12:03 [From Effexor] Comment) warfarin [From Coumadin] Allergy none Verified 07/10/23 12:03 listed on referral thiothixene [Thiothixene] AdvReac Severe Nausea Verified 07/10/23 12:03 topiramate AdvReac Intermediate Nausea Verified 07/10/23 12:03 gabapentin AdvReac Unknown Severe Verified 07/10/23 12:03 dizziness, runs; vomiting lidocaine AdvReac Unknown Nausea Verified 07/10/23 12:03 ibuprofen AdvReac headache Verified 07/10/23 12:03 and nausea melatonin AdvReac nightmares Verified 07/10/23 12:03 varenicline tartrate AdvReac Psychosis Verified 07/10/23 12:03 [From Chantix] ABSOLUTE CONTRAINDICATION AdvReac Severe Headache Uncoded 07/10/23 12:03 FOR MRI (disconnected RV pacer lead) general anesthia AdvReac Unknown Other (See Uncoded 07/10/23 12:03 Comment) General ASIM: 3 Exam Narrative Exam Narrative: General: Alert, well appearing, well nourished, in no acute distress. Head: Normocephalic, atraumatic Neck: Trachea midline, ?Neck supple. ENT: ?MMM.? No oropharygeal lesions or exudate. Cardiac: ?RRR, no murmurs appreciated Resp: No respiratory distress. CTAB. Chest: No rash. Nontender. Dialysis port left upper chest, non-tendern, no surrounding erythema. Abd: ?Soft, non-distended, nontender : ?No suprapubic tenderness. Extremities: ?No deformities.? No peripheral edema. Neurologic: GCS 15. ? Moves all extremities freely against gravity Medical Decision Making 62yo F with hx CKD on dialysis M/W/F, HTN, pacer, PVD s/p multiple procedures/grafts on eliquis for graft patency, T2DM, vertigo, bipolar, PTSD, presenting via EMS from dialysis for chest pain. History from patient, EMS, [facility] PCP clinic visit notes. ~ longterm through dialysis patient noted dull substernal chest pain radiating to her left chest, 6/10 in severity, with no alleviating or aggravating factors. Received 325 of ASA prior to arrival. Pain has now improved. No associated symptoms. Hypertensive on arrival SBP 190 (patient reports usually around 200 or so), vital signs otherwise reassuring. No tachycardia, hypoxia, or pleuritic pain to suggest pulmonary embolism; would not pursue further. No rash suggestive of zoster. No recent trauma. EKG on arrival SR, no ST segment or T wave abnormalities to suggest occlusive HI. Labs reviewed as below, CBC reassuring with no leukocytosis, does have mild anemia possible 2/t to known kidney disease however appears to be lower than typical on [facility] record review. Denies any overt bleeding. Advised to followup [facility] PCP for this. CMP consistent with CKD, electorlytes reassuring. ALP elevated with otherwise normal LFTs, elevated at baseline on my record review. More likely chronic disease/bone related, not consistent with cholecystitis. Lipase not suggestive of pancreatitis. Initial troponin negative. BNP markedly elevated at >35,000. CXR independently reviewed, no significant pulmonary edema or pneumothorax on my view, agree with radiology read below- does show possible pneumonia. Repeat troponin negative, repeat EKG remains SR with no ST segment or T wave abnormalities to suggest occlusive HI. Patient reports she completed ~1/2 her dialysis today and had a full session on Sunday. BNP elevated here however otherwise no signficant signs of volume overload- breathing normally, no pulmonary edema, no hypoxia, no peripheral edema. No indication for admission or emergent dialysis at this time. ACS workup reassuring; patient with multiple risk factors and so considered observation however she would prefer to go home which is not unreasonable. Will followup with cardiology this week. Possible pneumonia on CXR, patient afebrile with respiratory symptoms, however again chronically ill with significant risk factors; benefits of treating outweigh risks and so will treat with outpatient levofloxacin. Unclear etiology of pain however it has since resolved and she has an overall reassuring workup here. Patient would like to be discharged home wihich is reasonable. Discharged; discharge instructions and return precautions were reviewed with patient who verbalized understanding. All questions were answered and she is in full agreement with the plan. Imaging Data Radiologic Study: Imaging: X-Ray Radiologist's impression: IMPRESSION: 1. Small left pleural effusion. 2. Question of a infiltrate in the medial aspect of the left lower lobe. Lab Data Lab results reviewed: Yes I reviewed the patient's lab results. Labs: Laboratory Tests Range/Units 07/23/23 07/23/23 14:43 17:30 WBC (4.4-10.8) 10^3/uL 8.09 RBC (3.93-5.22) 10^6/uL 2.75 L Hgb (11.2-15.7) g/dL 8.4 L Hct (36.0-46.0) % 27.2 L MCV (80-95) fL 99 H MCH (27.0-33.0) pg 30.5 MCHC (32.0-36.0) % 30.9 L RDW (11.7-14.6) % 15.1 H Plt Count (130-400) 10^3/uL 317 MPV (8.0-11.0) fL 8.6 Immature Gran % 0.7 Neutrophils % 84.6 Lymphocytes % 9.1 Monocytes % 4.3 Eosinophils % 0.9 Basophils % 0.4 Nucleated RBC % (0.0-0.3) % 0.0 Absolute Neutrophils (1.2-6.7) 10^3/uL 6.84 H Absolute Lymphocytes (1.2-3.4) 10^3/uL 0.74 L Absolute Monocytes (0.1-0.8) 10^3/uL 0.35 Absolute Eosinophils (0.0-0.7) 10^3/uL 0.07 Absolute Basophils (0.0-0.2) 10^3/uL 0.03 Sodium (136-145) mmol/L 136 Potassium (3.5-5.1) mmol/L 3.4 L Chloride (98-107) mmol/L 93 L Carbon Dioxide (21.0-32.0) mmol/L 36.3 H Anion Gap (3-11) mmol/L 6.7 BUN (7-18) mg/dL 17 Creatinine (0.55-1.02) mg/dL 3.4 H Est GFR (CKD-EPI 2020) (mL/min/1.73m2) 14.76 Glucose (74-106) mg/dL 90 Calcium (8.5-10.1) mg/dL 8.8 Magnesium (1.8-2.4) mg/dL 2.1 Total Bilirubin (0.2-1.0) mg/dL 0.6 AST (15-37) U/L 15 ALT (14-59) U/L 12 L Alkaline Phosphatase (46-116) U/L 217 H Troponin I (< or =60) ng/L < 50 < 50 NT-Pro-B Natriuret Pep (<300) pg/mL > 88599 H Total Protein (6.4-8.2) g/dL 7.1 Albumin (3.4-5.0) g/dL 2.9 L Lipase (16-77) U/L 12 L Quality:SDOH Health Related Social Needs: No Data to Display PFSH All Active Problems (Updated 07/23/23 @ 18:06 by Diamond Matthews MD) Pneumonia (Acute) Chest pain (Acute) ESRD (end stage renal disease) on dialysis (Acute) Bacteremia (Acute ~10/2022) Intra vascular infection, AV graft infection - treating wit IV abx when at dialysis Anemia (Chronic) Atherosclerosis of artery of both lower extremities (Acute) 06/08/22 Rd Uriarte DPM - podiatry visit Reticulocytopenia (Acute) Elevated ferritin (Acute) Dialysis patient (Acute) Fracture of ramus of left pubis (Acute) Hyperlipidemia (Acute) 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 11/15/21 Decision from Transplant Eval that pt is not a candidate for kidney transplant Dysuria (Acute) Memory deficit (Acute) Solitary left kidney (Acute) Decreased GFR (Acute) Viral syndrome (Acute) Bilateral leg edema (Acute) Colonoscopy refused (Acute) Urinary incontinence (Acute 02/11/15) Urge incontinence (Chronic) Elevated cholesterol (Chronic) Fracture of radial neck, left, closed (Acute) H/O endarterectomy (Chronic) Non-adherence to medical treatment (Acute) Type 2 diabetes mellitus (Chronic) Sinus bradycardia (Chronic) S/p pacemaker. Generator change 12/2013 [facility] [place] [place] Pocket revision & new RV lead 10/2014 [facility] [place]. Postmenopausal (Chronic) LMP ~2004 Paranoia (Chronic 12/19/16) Meralgia paresthetica, right lower limb (Chronic 11/05/15) Dr. 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 Congenital single kidney (Chronic 03/08/15) by xray from [facility] 03/17/09 in scanned records Adult BMI > 30 (Chronic 06/07/15) Medical History Toe pain, bilateral 06/08/22 Rd Uriarte DPM Onychomycosis 06/08/22 Rd Uriarte DPM Type 2 diabetes mellitus with diabetic polyneuropathy Depression End stage renal disease [place] [facility] [place] Hypertension (~06/20/19) Goal <130/80 [facility] Seizure Sinus node dysfunction (10/22/14) Pacemaker (10/22/14) for bradycardia and sinus node dysfunction DDD pacer 2004 in [place] Medtronic dual lead programmed VVI - PG replaced 01/01/2014 [facility] [place] Old RV lead abandoned PTSD (post-traumatic stress disorder) (05/28/17) PAD (peripheral artery disease) (08/13/17) Stroke R parietal; asymptomatic; Bipolar 1 disorder Surgical History S/P angioplasty (01/30/18) left femoral endarterectomy and patch angioplasty, Aortogram, Over the wire Left ABF graft thrombectomy, Open ledt ABF thrombectomy, left ABF graft stent (VBX 8x39) S/P aortobifemoral bypass surgery aortobifemoral bypass (09/07/17) [facility] [place] vascular. August 2017 Pacemaker (~2004) [place], [place] section (~1985) Family History Mother No problems noted. Father No problems noted. Sister No problems noted. Social History Smoking/Tobacco Use Status: Former Tobacco Use Quit Date: 03/03/21 Pack-years: 36 Smoking risk assessment performed?: Yes Alcohol Intake: never Drug use: Never Substance use type: does not use Adopted: No Housing: house Number of Children: 1 Do you need help understanding health information?: Always current occupation: disabliilty What type of physical activity do you participate in: walking Duration: 15-30 minutes/day Frequency: 3-4 times per week Do you feel safe at home: Yes Do you feel safe in your relationship?: Yes Additional Social history: lives with care provider - FELIX BEASLEY 04/18/23
--- NOTE | 2023-07-23 14:30 | DI.RAD_ITS ---
Exam(s) XR CHEST 2V PA LATERAL EXAM: XR CHEST 2V PA LATERAL CLINICAL HISTORY: chest pain TECHNIQUE: 2D digital imaging was performed of the chest. Two images were obtained. PA and lateral views were obtained. COMPARISON: CR,XR XR CHEST 2V PA LATERAL from 11/25/2022 CR XR CHEST 1V IN DI DEPT from 04/18/2023 CR XR PORTABLE CHEST AP from 06/13/2023 FINDINGS: MEDIASTINUM: Normal. HEART: Normal. PULMONARY VASCULATURE: Normal. LUNGS: There is a question of a infiltrate in the medial aspect of the left lung base. PLEURAL SPACE: There is a small left pleural effusion. BONE:Within normal limits for the patient's age. There are old right rib fracture deformities. Ther e is a T7 compression deformity of indeterminate age. This was not present on the chest x-ray from . OTHER FINDINGS:The cardiac device is stable in position as is the left-sided central venous catheter. IMPRESSION: 1. Small left pleural effusion. 2. Question of a infiltrate in the medial aspect of the left lower lobe. DATA REPOSITORY: RADIATION DOSE DELIVERED:
[2023-07-23 14:53] LABS: Abs Immature Grans 0.06 10^3/uL (0.0-0.06); Absolute Basophil Count 0.03 10^3/uL (0.0-0.2); Absolute Eosinophil Count 0.07 10^3/uL (0.0-0.7); Absolute Lymphocyte Count 0.74 10^3/uL (1.2-3.4); Absolute Monocyte Count 0.35 10^3/uL (0.1-0.8); Absolute Neutrophil Count 6.84 10^3/uL (1.2-6.7); Basophils % 0.4; Eosinophils % 0.9; HCT 27.2 % (36.0-46.0); HGB 8.4 g/dL (11.2-15.7); Immature Grans % 0.7; Lymphocytes % 9.1; MCH 30.5 pg (27.0-33.0); MCHC 30.9 % (32.0-36.0); MCV 99 fL (80-95); MPV 8.6 fL (8.0-11.0); Monocytes % 4.3; Neutrophils % 84.6; Platelet Count 317 10^3/uL (130-400); RBC 2.75 10^6/uL (3.93-5.22); RDW 15.1 % (11.7-14.6); RDW-SD 54.5 fL; WBC 8.09 10^3/uL (4.4-10.8)
[2023-07-23 15:05] LABS: Lipase 12 U/L (16-77)
[2023-07-23 15:18] LABS: ALT 12 U/L (14-59); AST 15 U/L (15-37); Albumin 2.9 g/dL (3.4-5.0); Alkaline Phosphatase 217 U/L (46-116); Anion Gap 6.7 mmol/L (3-11); BUN 17 mg/dL (7-18); Bilirubin, Total 0.6 mg/dL (0.2-1.0); CO2 36.3 mmol/L (21.0-32.0); CREATININE 3.4 mg/dL (0.55-1.02); Calcium 8.8 mg/dL (8.5-10.1); Chloride 93 mmol/L (98-107); Estimated GFR 14.76 (mL/min/1.73m2); Glucose 90 mg/dL (74-106); Magnesium 2.1 mg/dL (1.8-2.4); Potassium 3.4 mmol/L (3.5-5.1); Sodium 136 mmol/L (136-145); Total Protein 7.1 g/dL (6.4-8.2); Troponin I < 50 ng/L (< or =60)
[2023-07-23 15:44] LABS: NT-proBNP > 35000 pg/mL (<300)
--- NOTE | 2023-07-23 17:15 | RT.EKG_ITS ---
APPROVED REPORT Exam: Resting ECG Reason for Exam: delta troponin Patient Location: E HR:62 bpm ECG Measurements Heart Rate 62 AXIS IA 70 P 0 QRSd 122 QRS -46 QT 451 T 162 QTc 457 Conclusion Sinus rhythm...normal P axis, V-rate 60- 99 LVH with secondary repolarization abnormality...multi-LVH criteria, abnrm ST-T no ST segment or T wave abnormalities to suggest occlusive [place]
[2023-07-23 17:50] LABS: Troponin I < 50 ng/L (< or =60)
--- NOTE | 2023-07-23 17:57 | NUR.NOTE ---
Referral faxed to Cardiology for a follow up within next week for Chest Pain
[2023-07-23] MEDS: levoFLOXacin 500 MG, levoFLOXacin 250 MG 750 MG PO (18:18)
--- NOTE | 2023-07-25 11:18 | NUR.NOTE ---
pt chart opened to discuss where the antibiotic prescription was sent. Nursing Note:
--- NOTE | 2023-07-25 12:41 | NUR.NOTE ---
Nursing Note:Chart accessed to see HIPAA form.
== END 2023-07-23 18:38 | disposition home or self-care (01) ==
PROVIDERS: Emergency Provider Student in an Organized Health Care Education/Training Program; PCP Nurse Practitioner
DX: R07.9 Chest pain, unspecified (principal); J18.9 Pneumonia, unspecified organism; I12.0 Hypertensive chronic kidney disease with stage 5 chronic kidney disease or end stage renal disease; E11.22 Type 2 diabetes mellitus with diabetic chronic kidney disease; N18.6 End stage renal disease; E11.42 Type 2 diabetes mellitus with diabetic polyneuropathy; Z99.2 Dependence on renal dialysis; Z95.0 Presence of cardiac pacemaker; Z86.73 Personal history of transient ischemic attack (TIA), and cerebral infarction without residual deficits; Z79.84 Long term (current) use of oral hypoglycemic drugs; Z79.82 Long term (current) use of aspirin; Z79.01 Long term (current) use of anticoagulants
CPT/HCPCS: 36415; 80053; 83690; 93005; 99285; 71046; 83735; 83880; 84484; 85025; 93010; 99284

== ENCOUNTER → 2023-07-24 04:02 | Outpatient (CLI) | payer MEDICARE, MEDICAID, SELFPAY ==
--- NOTE | 2023-07-24 15:24 | DI.MAMMO_ITS ---
Exam(s) MG MAMMO SCREENING 60 MIN DUR EXAM: MG MAMMO SCREENING 60 MIN DUR CLINICAL HISTORY: breast cancer screening,z12.39 TECHNIQUE: Bilateral full field digital CC and MLO mammographic images were obtained with 3D tomosyn thesis and utilizing computer aided detection (CAD). COMPARISON: Available for comparison. FINDINGS: Masses/Architectural Distortion: No mass or areas of architectural distortion are identified. Microcalcifications: No suspicious pleomorphic-type are seen. Skin Thickening/Nipple Retraction: There is mild diffuse apparent thickening of the skin noted. IMPRESSION: 1. No evidence of a mass or area of architectural distortion. 2. Mild skin thickening bilaterally. This may represent a diffuse edema or inflammation. Please cor relate with physical exam. There is continued clinical concern ultrasound or MRI should be considere d. 3. Unless there is more urgent need, screening mammography is recommended, as per [employer] guidelines. BI-RADS Category 1 - Negative Breast Density - Category B - Scattered areas of fibroglandular density Breast density category C or D implies that the patient has dense breast tissue. Dense breast tissue is very common and is not abnormal but dense breast tissue can make it harder to find cancer on a ma mmogram. Also, dense breast tissue may increase their breast cancer risk. This information about the result of the mammogram report was provided to the patient to raise their awareness. Use this report when you speak with the patient about their risks for breast cancer, which includes their family hist ory. At that time, you may recommend for more screening tests (Ultrasound or MRI) as they might be us eful based on their risk. A negative radiographic report should not delay biopsy if a dominant or clinically suspicious mass is present. Up to ten percent of cancers are not identified on mammography. A negative report may reinforce clinical impression. Adenosis and dense breasts may obscure an underlying neoplasm. False positive reports average 6 to 10%. Patient will receive a letter notifying them of these results. Unexpected findings
== END ==
PROVIDERS: PCP Nurse Practitioner; Visit Provider Nurse Practitioner
DX: Z12.31 Encounter for screening mammogram for malignant neoplasm of breast (principal)
CPT/HCPCS: 77063; 77067

== ENCOUNTER → 2023-07-31 09:40 | Outpatient (BNVA) | payer MEDICARE, MEDICAID, SELFPAY | PROVIDERS: PCP Nurse Practitioner; Referring Provider Nurse Practitioner; Visit Provider Internal Medicine Cardiovascular Disease | DX: Z95.0 Presence of cardiac pacemaker (principal); I42.9 Cardiomyopathy, unspecified; N18.6 End stage renal disease; Z99.2 Dependence on renal dialysis | CPT/HCPCS: 99213 ==

== ENCOUNTER 2023-08-14 19:00 | Outpatient (CLI) | payer MEDICARE, MEDICAID, SELFPAY ==
[2023-08-14 17:08] LABS: Abs Immature Grans 0.03 10^3/uL (0.0-0.06); Absolute Basophil Count 0.04 10^3/uL (0.0-0.2); Absolute Eosinophil Count 0.12 10^3/uL (0.0-0.7); Absolute Lymphocyte Count 0.89 10^3/uL (1.2-3.4); Absolute Monocyte Count 0.54 10^3/uL (0.1-0.8); Absolute Neutrophil Count 5.74 10^3/uL (1.2-6.7); Basophils % 0.5; Eosinophils % 1.6; HCT 31.1 % (36.0-46.0); HGB 9.9 g/dL (11.2-15.7); Immature Grans % 0.4; Lymphocytes % 12.1; MCH 30.5 pg (27.0-33.0); MCHC 31.8 % (32.0-36.0); MCV 96 fL (80-95); MPV 8.9 fL (8.0-11.0); Monocytes % 7.3; Neutrophils % 78.1; Platelet Count 248 10^3/uL (130-400); RBC 3.25 10^6/uL (3.93-5.22); RDW 17.2 % (11.7-14.6); RDW-SD 61.2 fL; WBC 7.36 10^3/uL (4.4-10.8)
[2023-08-14 17:33] LABS: Ammonia 16 umol/L (11-32)
[2023-08-14 19:05] LABS: ALT 15 U/L (14-59); AST 18 U/L (15-37); Albumin 3.7 g/dL (3.4-5.0); Alkaline Phosphatase 173 U/L (46-116); Anion Gap 9.1 mmol/L (3-11); BUN 25 mg/dL (7-18); Bilirubin, Total 0.6 mg/dL (0.2-1.0); CO2 33.9 mmol/L (21.0-32.0); Calcium 9.4 mg/dL (8.5-10.1); Chloride 91 mmol/L (98-107); Estimated GFR 11.07 (mL/min/1.73m2); Potassium 3.7 mmol/L (3.5-5.1); Sodium 134 mmol/L (136-145); TSH (W/Ref FT4) 1.93 uIU/mL (0.36-3.74); Total Protein 6.6 g/dL (6.4-8.2)
[2023-08-14 19:16] LABS: CREATININE 4.3 mg/dL (0.55-1.02); Glucose 36 mg/dL (74-106)
[2023-08-15 09:22] LABS: Ferritin 929 ng/mL (8-252)
[2023-08-15 23:34] LABS: Vitamin B12 >2000 pg/mL (211-911)
== END 2023-08-14 19:01 | disposition home or self-care (01) ==
LOC: LBO 08-16 19:01
PROVIDERS: PCP Nurse Practitioner; Visit Provider Nurse Practitioner
DX: I10 Essential (primary) hypertension (principal); R41.82 Altered mental status, unspecified; D64.9 Anemia, unspecified; J45.909 Unspecified asthma, uncomplicated
CPT/HCPCS: 36415; 80053; 82140; 82607; 82728; 84443; 85025

== ENCOUNTER → 2023-08-23 04:13 | Outpatient (CLI) | payer MEDICARE, MEDICAID, SELFPAY ==
--- NOTE | 2023-08-23 09:00 | DI.RAD_ITS ---
Exam(s) XR CHEST 2V PA LATERAL EXAM: XR CHEST 2V PA LATERAL CLINICAL HISTORY: mental status change, R41.82 TECHNIQUE: 2D digital imaging was performed. Two views. COMPARISON: CR XR CHEST 1V IN DI DEPT from 04/18/2023 CR XR PORTABLE CHEST AP from 06/13/2023 CR XR CHEST 2V PA LATERAL from 07/23/2023 FINDINGS: Central venous catheter. HEART: Enlarged. Pacemaker. Aorta: Not dilated. PULMONARY VASCULATURE: Normal. LUNGS: Small bilateral pleural effusions and adjacent atelectasis. PLEURAL SPACE: Small bilateral pleural effusions. BONE:Stable upper thoracic compression fracture. Soft tissues: Unremarkable. IMPRESSION: Small bilateral pleural effusions. DATA REPOSITORY: RADIATION DOSE DELIVERED:
== END ==
PROVIDERS: PCP Nurse Practitioner; Visit Provider Nurse Practitioner
DX: R91.8 Other nonspecific abnormal finding of lung field (principal)
CPT/HCPCS: 71046

== ENCOUNTER 2023-09-17 11:24 | Observation (INO) | payer MEDICARE, MEDICAID, SELFPAY ==
[2023-09-17] VITALS (31 sets, daily range): BP systolic 186–218; BP diastolic 71–101; PULSE 61–79; RESP 12–26; TEMP 36.6–39.6; O2SAT 90–98
--- NOTE | 2023-09-17 11:30 | RT.EKG_ITS ---
APPROVED REPORT Exam: Resting ECG Reason for Exam: AMS Patient Location: E HR:70 bpm ECG Measurements Heart Rate 70 AXIS CO 169 P 65 QRSd 110 QRS -54 QT 407 T 123 QTc 440 Conclusion Sinus rhythm...normal P axis, V-rate 60- 99 Probable left atrial enlargement...P >50mS, <-0.10mV V1 Left anterior fascicular block...axis(240,-40), init forces inf LVH with secondary repolarization abnormality...multi-LVH criteria, abnrm ST-T
[2023-09-17 12:22] LABS: BE (Venous) 9 mmol/L (-2-3); HCO3 (Venous) 34 mmol/L (23-28); O2 Sat (Venous) 63 %; TCO2 (Venous) 31 mmol/L (24-29); pCO2 (Venous) 52 mmHg (41-51); pH (Venous) 7.42 (7.31-7.41); pO2 (Venous) 33 mmHg
[2023-09-17 12:25] LABS: Abs Immature Grans 0.01 10^3/uL (0.0-0.06); Absolute Basophil Count 0.02 10^3/uL (0.0-0.2); Absolute Eosinophil Count 0.01 10^3/uL (0.0-0.7); Absolute Lymphocyte Count 0.65 10^3/uL (1.2-3.4); Absolute Neutrophil Count 4.41 10^3/uL (1.2-6.7); Basophils % 0.4 %; Eosinophils % 0.2 %; HCT 34.4 % (36.0-46.0); HGB 11.2 g/dL (11.2-15.7); Immature Grans % 0.2 %; Lymphocytes % 11.8 %; MCH 29.4 pg (27.0-33.0); MCHC 32.6 % (32.0-36.0); MCV 90 fL (80-95); MPV 9.7 fL (8.0-11.0); Monocytes % 7.3 %; Neutrophils % 80.1 %; Platelet Count 163 10^3/uL (130-400); RBC 3.81 10^6/uL (3.93-5.22); RDW 14.8 % (11.7-14.6); RDW-SD 49.5 fL
[2023-09-17 12:35] LABS: Ammonia < 10 umol/L (11-32)
[2023-09-17 12:54] LABS: ALT 18 U/L (14-59); AST 24 U/L (15-37); Albumin 3.9 g/dL (3.4-5.0); Alkaline Phosphatase 194 U/L (46-116); Anion Gap 10.5 mmol/L (3-11); BUN 64 mg/dL (7-18); Bilirubin, Total 0.7 mg/dL (0.2-1.0); CO2 32.5 mmol/L (21.0-32.0); Calcium 9.7 mg/dL (8.5-10.1); Chloride 93 mmol/L (98-107); Estimated GFR 6.62 (mL/min/1.73m2); Glucose 142 mg/dL (74-106); Magnesium 2.1 mg/dL (1.8-2.4); Sodium 136 mmol/L (136-145); TSH (W/Ref FT4) 1.05 uIU/mL (0.36-3.74); Total Protein 7.1 g/dL (6.4-8.2)
[2023-09-17 12:56] LABS: ETHANOL BLOOD < 3.0 mg/dL (<10)
[2023-09-17 12:57] LABS: CREATININE 6.6 mg/dL (0.55-1.02)
--- NOTE | 2023-09-17 13:04 | W.ED.GENAD ---
Discharge Plan Disposition Patient Disposition: Admit to [facility] Condition: Serious Discharge Details Clinical Impression: Encephalopathy Admit Date/Time: 09/17/23 13:04 Admit Provider: Elgin Escalante Attending Provider: Elgin Escalante Primary Care Provider: Rosaura Fragoso ED Provider: Kenyon Long Discharge Data Discharge Date/Time-TO BE ENTERED AT DEPARTURE: 09/17/23 14:16 HPI General Mode of arrival: EMS. Date/Time Provider Initiated Documentation: 09/17/23 11:30. Limitations to Documentation: altered mental status. Information obtained by: EMS. HPI Narrative: 63-year-old female with multiple medical problems, complex medical history, history of end-stage renal disease on hemodialysis, presents from dialysis with concern for altered mental status and accidental dislodgment of dialysis catheter. History and review of systems limited secondary to altered mental status. Patient's coding compliance specialist is here and notes that patient has had progressive worsening confusion with increasing episodes of emotional lability, frequently crying over the past months. She notes that over the past several weeks, mentation has dramatically declined. Apparently last night the dialysis catheter was slightly dislodged, sutures torn. Related Data Home Medications Medication Instructions Recorded Confirmed blood sugar diagnostic (Blood #300 ea 05/06/18 09/17/23 Glucose Test strips) lamotrigine 100 mg tablet 100 mg PO BID 05/09/18 09/17/23 diaper,brief,adult,disposable #150 ea 07/25/18 09/17/23 (Adult Briefs - Large) benztropine 0.5 mg tablet 0.5 mg PO HS 03/06/19 09/17/23 multivitamin (Daily Multi-Vitamin 1 tab PO DAILY #90 tabs 05/15/19 09/17/23 tablet) cyanocobalamin (vitamin B-12) 500 500 mcg PO DAILY 08/05/19 09/17/23 mcg tablet (Vitamin B-12) nystatin 100,000 unit/gram topical 1 applic topical BID #60 grams 02/04/20 09/17/23 powder acetylcysteine 600 mg capsule (NAC) 600 mg PO BID 02/11/20 09/17/23 acetaminophen 500 mg tablet 1,000 mg PO BID PRN fever or pain 07/06/20 09/17/23 (Acetaminophen Extra Strength) cariprazine 1.5 mg capsule 1.5 mg PO DAILY 10/27/20 09/17/23 (Vraylar) insulin aspart U-100 100 unit/mL See Rx Instructions subcut AC #15 07/03/22 09/17/23 (3 mL) subcutaneous pen (Novolog mL FlexPen U-100 Insulin aspart) raised toilet seat #1 ea 07/13/22 09/17/23 shower chair with arms, with slide #1 ea 07/13/22 09/17/23 to tub Commode #1 ea 08/21/22 09/17/23 carvedilol 12.5 mg tablet See Rx Instructions .Route 08/28/22 09/17/23 .COMPLEX #180 tabs polyethylene glycol 3350 17 17 g PO DAILY PRN constipation 11/06/22 09/17/23 gram/dose oral powder sennosides 8.6 mg-docusate sodium 2 tab-cap PO BID PRN constipation 11/06/22 09/17/23 50 mg tablet (Senna with Docusate Sodium) fosinopril 40 mg tablet 40 mg PO BID 12/04/22 09/17/23 lorazepam 0.5 mg tablet 0.5 mg PO Q6H PRN anxiety 12/04/22 09/17/23 pen needle, diabetic 32 gauge x #100 ea 03/05/23 09/17/23 (BD Vane 2nd Gen Pen Needle) cefadroxil 500 mg capsule 1,000 mg PO .3x/week 03/22/23 09/17/23 meclizine 12.5 mg tablet See Rx Instructions .Route 05/09/23 09/17/23 .COMPLEX #60 tabs insulin glargine 100 unit/mL (3 See Rx Instructions .Route 05/28/23 09/17/23 mL) subcutaneous pen (Basaglar .COMPLEX #30 mL KwikPen U-100 Insulin) apixaban 5 mg tablet (Eliquis) See Rx Instructions .Route 06/28/23 09/17/23 .COMPLEX #90 tabs memantine 5 mg tablet 5 mg PO BID #180 tabs 07/02/23 09/17/23 omeprazole 40 mg capsule,delayed See Rx Instructions .Route 08/13/23 09/17/23 release .COMPLEX #90 caps lamotrigine 25 mg tablet 25 mg PO BID 09/04/23 09/17/23 lorazepam 1 mg tablet 2 mg PO HS 09/04/23 09/17/23 mirtazapine 15 mg tablet 7.5 mg PO QHS 09/04/23 09/17/23 ondansetron 8 mg disintegrating 8 mg PO Q8H PRN nausea and 09/04/23 09/17/23 tablet vomiting #60 tabs aspirin 81 mg tablet,delayed See Rx Instructions .Route 09/10/23 09/17/23 release .COMPLEX #90 tabs minoxidil 2.5 mg tablet 5 mg (2 x 2.5 mg) PO BID #120 tabs 09/10/23 09/17/23 atorvastatin 40 mg tablet 20 mg PO DAILY 09/17/23 09/17/23 acetaminophen 650 mg rectal 650 mg ME Q6H PRN fever, mild pain 09/18/23 suppository #6 supp bisacodyl 10 mg rectal suppository 10 mg ME daily PRN constipation #2 09/18/23 (Dulcolax (bisacodyl)) supp haloperidol lactate 2 mg/mL oral 1 mg (0.5 mL) PO Q6H PRN agitation 09/18/23 concentrate #15 mL hyoscyamine sulfate 0.125 mg 0.125 - 0.25 mg (1 - 2 x 0.125 mg) 09/18/23 disintegrating tablet PO Q4H PRN secretions #24 tabs lorazepam 1 mg tablet 1 mg PO Q4H PRN anxiety, ENGLISH or 09/18/23 nausea #6 tabs prochlorperazine maleate 10 mg 10 mg PO Q6H PRN nausea and 09/18/23 tablet vomiting #6 tabs Previous Rx's Medication Instructions Recorded blood sugar diagnostic (Blood #300 ea 05/06/18 Glucose Test strips) diaper,brief,adult,disposable #150 ea 07/25/18 (Adult Briefs - Large) multivitamin (Daily Multi-Vitamin 1 tab PO DAILY #90 tabs 05/15/19 tablet) nystatin 100,000 unit/gram topical 1 applic topical BID #60 grams 02/04/20 powder insulin aspart U-100 100 unit/mL See Rx Instructions subcut AC #15 07/03/22 (3 mL) subcutaneous pen (Novolog mL FlexPen U-100 Insulin aspart) raised toilet seat #1 ea 07/13/22 shower chair with arms, with slide #1 ea 07/13/22 to tub Commode #1 ea 08/21/22 carvedilol 12.5 mg tablet See Rx Instructions .Route 08/28/22 .COMPLEX #180 tabs pen needle, diabetic 32 gauge x #100 ea 03/05/23 5/32 (BD Vane 2nd Gen Pen Needle) meclizine 12.5 mg tablet See Rx Instructions .Route 05/09/23 .COMPLEX #60 tabs insulin glargine 100 unit/mL (3 See Rx Instructions .Route 05/28/23 mL) subcutaneous pen (Basaglar .COMPLEX #30 mL KwikPen U-100 Insulin) apixaban 5 mg tablet (Eliquis) See Rx Instructions .Route 06/28/23 .COMPLEX #90 tabs memantine 5 mg tablet 5 mg PO BID #180 tabs 07/02/23 omeprazole 40 mg capsule,delayed See Rx Instructions .Route 08/13/23 release .COMPLEX #90 caps ondansetron 8 mg disintegrating 8 mg PO Q8H PRN nausea and 09/04/23 tablet vomiting #60 tabs aspirin 81 mg tablet,delayed See Rx Instructions .Route 09/10/23 release .COMPLEX #90 tabs minoxidil 2.5 mg tablet 5 mg (2 x 2.5 mg) PO BID #120 tabs 09/10/23 acetaminophen 650 mg rectal 650 mg ME Q6H PRN fever, mild pain 09/18/23 suppository #6 supp bisacodyl 10 mg rectal suppository 10 mg ME daily PRN constipation #2 09/18/23 (Dulcolax (bisacodyl)) supp haloperidol lactate 2 mg/mL oral 1 mg (0.5 mL) PO Q6H PRN agitation 09/18/23 concentrate #15 mL hyoscyamine sulfate 0.125 mg 0.125 - 0.25 mg (1 - 2 x 0.125 mg) 09/18/23 disintegrating tablet PO Q4H PRN secretions #24 tabs lorazepam 1 mg tablet 1 mg PO Q4H PRN anxiety, ENGLISH or 09/18/23 nausea #6 tabs prochlorperazine maleate 10 mg 10 mg PO Q6H PRN nausea and 05/28/24 tablet vomiting #6 tabs Allergies Allergy/AdvReac Type Severity Reaction Status Date / Time aripiprazole [From Abilify] Allergy Severe tardive Verified 09/04/23 11:54 dyskinesia duloxetine HCl Allergy Severe Hives Verified 09/04/23 11:54 [From Cymbalta] oxycodone Allergy Severe Hives Verified 09/04/23 11:54 Sulfa (Sulfonamide Allergy Severe Skin Rash Verified 09/04/23 11:54 Antibiotics) acetaminophen [From Vicodin] Allergy Intermediate vomiting Verified 09/04/23 11:54 citalopram Allergy Intermediate HIVES Verified 09/04/23 11:54 fesoterodine Allergy Intermediate HIVES Verified 09/04/23 11:54 hydrocodone bitartrate Allergy Intermediate vomiting Verified 09/04/23 11:54 [From Vicodin] latex Allergy Intermediate Hives Verified 09/04/23 11:54 morphine Allergy Intermediate unknown Verified 09/04/23 11:54 rabies vaccine, human Allergy Intermediate Hives Verified 09/04/23 11:54 diploid cell [Rabies Vaccine,Human Diploid] Tetanus Vaccines and Toxoid Allergy Intermediate Swelling/Ed Verified 09/04/23 11:54 [Tetanus Vaccines & Toxoid] ghulam amitriptyline Allergy Unknown unknown Verified 09/04/23 11:54 bupropion HCl Allergy Unknown unknown Verified 09/04/23 11:54 [From Wellbutrin] celecoxib [From Celebrex] Allergy Unknown unknown Verified 09/04/23 11:54 diazepam [From Valium] Allergy Unknown unknown Verified 09/04/23 11:54 divalproex sodium Allergy Unknown unknown Verified 09/04/23 11:54 [From Depakote] escitalopram oxalate Allergy Unknown unknown Verified 09/04/23 11:54 [From Lexapro] fluoxetine HCl [From Prozac] Allergy Unknown unknown Verified 09/04/23 11:54 fosphenytoin sodium Allergy Unknown unknown Verified 09/04/23 11:54 [From Cerebyx] nicotine [From Nicoderm CQ] Allergy Unknown rash/hives Verified 09/04/23 11:54 paroxetine HCl [From Paxil] Allergy Unknown unknown Verified 09/04/23 11:54 phenytoin sodium Allergy Unknown unknown Verified 09/04/23 11:54 [From Dilantin] phenytoin sodium extended Allergy Unknown unknown Verified 09/04/23 11:54 [From Dilantin] prednisone Allergy Unknown unknown Verified 09/04/23 11:54 procaine HCl [From Novocain] Allergy Unknown unknown Verified 09/04/23 11:54 quetiapine Allergy Unknown unknown Verified 09/04/23 11:54 quetiapine fumarate Allergy Unknown Other (See Verified 09/04/23 11:54 [From Seroquel] Comment) risperidone [From Risperdal] Allergy Unknown Other (See Verified 09/04/23 11:54 Comment) sertraline Allergy Unknown Hives Verified 09/04/23 11:54 trazodone Allergy Unknown Other (See Verified 09/04/23 11:54 Comment) venlafaxine HCl Allergy Unknown Other (See Verified 09/04/23 11:54 [From Effexor] Comment) warfarin [From Coumadin] Allergy none Verified 09/04/23 11:54 listed on referral thiothixene [Thiothixene] AdvReac Severe Nausea Verified 09/04/23 11:54 topiramate AdvReac Intermediate Nausea Verified 09/04/23 11:54 gabapentin AdvReac Unknown Severe Verified 09/04/23 11:54 dizziness, runs; vomiting lidocaine AdvReac Unknown Nausea Verified 09/04/23 11:54 ibuprofen AdvReac headache Verified 09/04/23 11:54 and nausea melatonin AdvReac nightmares Verified 09/04/23 11:54 varenicline tartrate AdvReac Psychosis Verified 09/04/23 11:54 [From Chantix] ABSOLUTE CONTRAINDICATION AdvReac Severe Headache Uncoded 09/04/23 11:54 FOR MRI (disconnected RV pacer lead) general anesthia AdvReac Unknown Other (See Uncoded 09/04/23 11:54 Comment) General Stated Complaint: GenMedical ASIM: 3 Review of Systems Unobtainable due to mental status Exam Const General: frail appearing, ill appearing and lethargic Nutritional Appearance: thin Orientation: obtunded Limitations: altered mental status [facility] Head: normocephalic and atraumatic Mouth: mucous membranes dry Eyes Pupils: PERRL Neck Neck: trachea midline Chest Other: Left chest: Dialysis catheter sutures torn and seems to be withdrawn about 1 to 2 cm. No bleeding. Resp Auscultation: clear to auscultation bilaterally, no rales, no rhonchi and no wheezes Cardio Rate: regular rate and not tachycardic Rhythm: regular rhythm GI Palpation: soft, not firm, no guarding, no masses, not rigid and nontender Skin General skin exam: no rashes or lesions noted Neuro General: not alert and not oriented x3 Cognition: abnormal cognition Extrem General: no edema Course Vital Signs Vital signs: Vital Signs Respiratory Rate 26 H 09/17/23 11:39 Pulse 72 09/17/23 11:41 Pulse 74 09/17/23 11:41 Respiratory Rate 25 H 09/17/23 11:41 Respiratory Effort Normal, Non-Labored 09/17/23 12:16 Blood Pressure 198/89 H 09/17/23 11:41 Blood Pressure Mean 127 09/17/23 11:41 Pulse Oximetry 97 09/17/23 11:41 Oxygen Delivery Method Room Air 09/17/23 12:16 Lab/Test Results Lab/Test Results: Laboratory Tests Range/Units 09/17/23 09/17/23 12:01 12:12 WBC (4.4-10.8) 10^3/uL 5.50 RBC (3.93-5.22) 10^6/uL 3.81 L Hgb (11.2-15.7) g/dL 11.2 Hct (36.0-46.0) % 34.4 L MCV (80-95) fL 90 MCH (27.0-33.0) pg 29.4 MCHC (32.0-36.0) % 32.6 RDW (11.7-14.6) % 14.8 H Plt Count (130-400) 10^3/uL 163 MPV (8.0-11.0) fL 9.7 Immature Gran % % 0.2 Neutrophils % % 80.1 Lymphocytes % % 11.8 Monocytes % % 7.3 Eosinophils % % 0.2 Basophils % % 0.4 Nucleated RBC % (0.0-0.3) % 0.0 Absolute Neutrophils (1.2-6.7) 10^3/uL 4.41 Absolute Lymphocytes (1.2-3.4) 10^3/uL 0.65 L Absolute Monocytes (0.1-0.8) 10^3/uL 0.40 Absolute Eosinophils (0.0-0.7) 10^3/uL 0.01 Absolute Basophils (0.0-0.2) 10^3/uL 0.02 VBG pH (7.31-7.41) 7.42 H VBG pCO2 (41-51) mmHg 52 H VBG pO2 mmHg 33 VBG HCO3 (23-28) mmol/L 34 H VBG Total CO2 (24-29) mmol/L 31 H VBG O2 Saturation % 63 VBG Base Excess (-2-3) mmol/L 9 H Sodium (136-145) mmol/L 136 Potassium (3.5-5.1) mmol/L 4.0 Chloride (98-107) mmol/L 93 L Carbon Dioxide (21.0-32.0) mmol/L 32.5 H Anion Gap (3-11) mmol/L 10.5 BUN (7-18) mg/dL 64 H Creatinine (0.55-1.02) mg/dL 6.6 H* Est GFR (CKD-EPI 2020) (mL/min/1.73m2) 6.62 Glucose (74-106) mg/dL 142 H Calcium (8.5-10.1) mg/dL 9.7 Magnesium (1.8-2.4) mg/dL 2.1 Total Bilirubin (0.2-1.0) mg/dL 0.7 AST (15-37) U/L 24 ALT (14-59) U/L 18 Alkaline Phosphatase (46-116) U/L 194 H Ammonia (11-32) umol/L < 10 L Total Protein (6.4-8.2) g/dL 7.1 Albumin (3.4-5.0) g/dL 3.9 TSH Cancelled 1.05 Ethyl Alcohol Cancelled < 3.0 Medical Decision Making 63-year-old female with multiple medical problems including end-stage renal disease on hemodialysis, diabetes, hypertension, CVA, here with altered mental status and partial dislodgment of dialysis catheter. Regarding dialysis catheter, unclear if still functional. Catheter was immediately sutured in place to prevent further withdrawal. Regarding altered mental: Patient has had progressive decline in mentation over the past several weeks per coding compliance specialist. She is now lethargic, minimally responsive to verbal stimuli. In speaking with the patient's coding compliance specialist, there apparently was recent discussion regarding transitioning to palliative/hospice care. I contacted the patient's medical POA, her sister, discussed her current status and treatment options. We discussed aggressive treatment including transfer to dialysis capable center. I explained that Ms. Crews is quite ill and that without aggressive treatment she would likely within a short period of time. The patient's POA declines aggressive treatment including transfer and feels that transitioning to comfort measures would be in the patient's best interest. This was a challenging decision for the patient's sister but she did ultimately feel this is what the patient would desire. I contacted hospice [employer] [facility] and discussed ED presentation course. She attempted to arrange for outpatient hospice care but this could not be arranged today. Patient to be admitted to the hospitalist service. I called and spoke with Dr. Escalante, discussed ED presentation course, he will admit the patient. Quality:SDOH Health Related Social Needs: No Data to Display PFSH All Active Problems (Updated 09/27/23 @ 12:19 by Kenyon Long MD) Encephalopathy (Acute) DNR (do not resuscitate) (Acute) See 09/18/23 COLST: DNR/DNI [employer]PERATOR Palliative care patient (Acute) Advanced care planning/counseling discussion (Acute) End stage renal disease (Acute) 07/21/20 [facility] [place] Infected pacemaker (Acute) Encephalopathy (Acute) Comfort measures only status (Acute) Cardiomyopathy (Acute) Bacteremia (Acute ~10/2022) Intra vascular infection, AV graft infection - treating wit IV abx when at dialysis Anemia (Chronic) Atherosclerosis of artery of both lower extremities (Acute) 06/08/22 Rd Uriarte DPM - podiatry visit Reticulocytopenia (Acute) Elevated ferritin (Acute) Dialysis patient (Acute) Fracture of ramus of left pubis (Acute) Hyperlipidemia (Acute) 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 11/15/21 Decision from Transplant Eval that pt is not a candidate for kidney transplant Dysuria (Acute) Memory deficit (Acute) Solitary left kidney (Acute) Decreased GFR (Acute) Viral syndrome (Acute) Bilateral leg edema (Acute) Colonoscopy refused (Acute) Urinary incontinence (Acute 02/11/15) Urge incontinence (Chronic) Elevated cholesterol (Chronic) Fracture of radial neck, left, closed (Acute) H/O endarterectomy (Chronic) Non-adherence to medical treatment (Acute) Type 2 diabetes mellitus (Chronic) Sinus bradycardia (Chronic) S/p pacemaker. Generator change 12/2013 [facility] [place] ([facility]ariel [facility]). Pocket revision & new RV lead 10/2014 [facility] [place]. Postmenopausal (Chronic) LMP ~2004 Paranoia (Chronic 12/19/16) Meralgia paresthetica, right lower limb (Chronic 11/05/15) Dr. 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 Congenital single kidney (Chronic 03/08/15) by xray from [facility] 03/17/09 in scanned records Adult BMI > 30 (Chronic 06/07/15) Medical History Toe pain, bilateral 06/08/22 Rd Uriarte DPM Onychomycosis 06/08/22 Rd Uriarte DPM Type 2 diabetes mellitus with diabetic polyneuropathy Depression End stage renal disease 07/21/20 [facility] [place] Hemodialysis patient Hypertension (~06/20/19) Goal <130/80 [facility] Seizure Sinus node dysfunction (10/22/14) Pacemaker (10/22/14) for bradycardia and sinus node dysfunction DDD pacer 2004 in [place] Medtronic dual lead programmed VVI - PG replaced 01/01/2014 [facility] [place] Old RV lead abandoned PTSD (post-traumatic stress disorder) (05/28/17) PAD (peripheral artery disease) (08/13/17) Stroke R parietal; asymptomatic; Bipolar 1 disorder Surgical History S/P angioplasty (01/30/18) left femoral endarterectomy and patch angioplasty, Aortogram, Over the wire Left ABF graft thrombectomy, Open ledt ABF thrombectomy, left ABF graft stent (VBX 8x39) S/P aortobifemoral bypass surgery aortobifemoral bypass (09/07/17) [facility] [place] vascular. August 2017 Pacemaker (~2004) [place] section (~1985) Family History Mother No problems noted. Father No problems noted. Sister No problems noted. Social History Smoking/Tobacco Use Status: Former Tobacco Use Quit Date: 03/03/21 Pack-years: 37 Smoking risk assessment performed?: Yes Alcohol Intake: never Drug use: Never Substance use type: does not use Adopted: No Housing: house Number of Children: 1 Do you need help understanding health information?: Always current occupation: disabliilty What type of physical activity do you participate in: walking Duration: 15-30 minutes/day Frequency: 3-4 times per week Do you feel safe at home: Yes Do you feel safe in your relationship?: Yes Additional Social history: lives with care provider - FELIX BEASLEY 04/18/23
--- NOTE | 2023-09-17 13:09 | W.PM.HP.N ---
Date of service: 09/17/23 Time of Service: 13:10 Assessment and Plan Assessment and plan (1) Comfort measures only status: Status: Acute Assessment and plan: Referred to observation for comfort measures Plan to discharged home on hospice Palliative care will be consulted Morphine if needed for symptoms Benadryl will be available as it is listed as an allergy unable to confirm what reaction is Discussed with Dr. Escalante History of Present Illness Narrative: This is a 63-year-old female patient past medical history significant for end stage kidney disease on dialysis type 2 diabetes, tardive dyskinesia, cardiomyopathy who presented to the emergency department with altered mental status. She did not receive her hemodialysis today as she dislodged her line. After evaluation in the ED, family decision is for comfort care, palliative consulted and plan to discharge home and admit to hospice tomorrow. Review of Systems Unobtainable due to mental status PFSH All Active Problems (Updated 09/17/23 @ 13:16 by Odalys Finch NP) Comfort measures only status (Acute) Cardiomyopathy (Acute) Bacteremia (Acute ~10/2022) Intra vascular infection, AV graft infection - treating wit IV abx when at dialysis Anemia (Chronic) Atherosclerosis of artery of both lower extremities (Acute) 06/08/22 Rd Uriarte DPM - podiatry visit Reticulocytopenia (Acute) Elevated ferritin (Acute) Dialysis patient (Acute) Fracture of ramus of left pubis (Acute) Hyperlipidemia (Acute) 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 11/15/21 Decision from Transplant Eval that pt is not a candidate for kidney transplant Dysuria (Acute) Memory deficit (Acute) Solitary left kidney (Acute) Decreased GFR (Acute) Viral syndrome (Acute) Bilateral leg edema (Acute) Colonoscopy refused (Acute) Urinary incontinence (Acute 02/11/15) Urge incontinence (Chronic) Elevated cholesterol (Chronic) Fracture of radial neck, left, closed (Acute) H/O endarterectomy (Chronic) Non-adherence to medical treatment (Acute) Type 2 diabetes mellitus (Chronic) Sinus bradycardia (Chronic) S/p pacemaker. Generator change 12/2013 [facility] [place] (Yariel MCLAUGHLIN). Pocket revision & new RV lead 10/2014 [facility]. Postmenopausal (Chronic) LMP ~2004 Paranoia (Chronic 12/19/16) Meralgia paresthetica, right lower limb (Chronic 11/05/15) Dr. 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 Congenital single kidney (Chronic 03/08/15) by xray from [facility] 03/17/09 in scanned records Adult BMI > 30 (Chronic 06/07/15) Medical History Toe pain, bilateral 06/08/22 Rd Uriarte DPZane Onychomycosis 06/08/22 Rd Uriarte, DPZane Type 2 diabetes mellitus with diabetic polyneuropathy Depression [place] stage renal disease [place] [facility] Hypertension (~06/20/19) Goal <130/80 [facility] Seizure Sinus node dysfunction (10/22/14) Pacemaker (10/22/14) for bradycardia and sinus node dysfunction DDD pacer 2004 in [place] Medtronic dual lead programmed VVI - PG replaced 01/01/2014 [facility] Old RV lead abandoned PTSD (post-traumatic stress disorder) (05/28/17) PAD (peripheral artery disease) (08/13/17) Stroke R parietal; asymptomatic; Bipolar 1 disorder Surgical History S/P angioplasty (01/30/18) left femoral endarterectomy and patch angioplasty, Aortogram, Over the wire Left ABF graft thrombectomy, Open ledt ABF thrombectomy, left ABF graft stent (VBX 8x39) S/P aortobifemoral bypass surgery aortobifemoral bypass (09/07/17) [facility] [place]. August 2017 Pacemaker (~2004) [place] section (~1985) Family History Mother No problems noted. Father No problems noted. Sister No problems noted. Social History Smoking/Tobacco Use Status: Former Tobacco Use Quit Date: 03/03/21 Pack-years: 36 Smoking risk assessment performed?: Yes Alcohol Intake: never Drug use: Never Substance use type: does not use Adopted: No Housing: house Number of Children: 1 Do you need help understanding health information?: Always current occupation: disabliilty What type of physical activity do you participate in: walking Duration: 15-30 minutes/day Frequency: 3-4 times per week Do you feel safe at home: Yes Do you feel safe in your relationship?: Yes Additional Social history: lives with care provider - FELIX BEASLEY 04/18/23 Meds Allergies and Home Medications Allergies Allergy/AdvReac Type Severity Reaction Status Date / Time aripiprazole [From Abilify] Allergy Severe tardive Verified 09/04/23 11:54 dyskinesia duloxetine HCl Allergy Severe Hives Verified 09/04/23 11:54 [From Cymbalta] oxycodone Allergy Severe Hives Verified 09/04/23 11:54 Sulfa (Sulfonamide Allergy Severe Skin Rash Verified 09/04/23 11:54 Antibiotics) acetaminophen [From Vicodin] Allergy Intermediate vomiting Verified 09/04/23 11:54 citalopram Allergy Intermediate HIVES Verified 09/04/23 11:54 fesoterodine Allergy Intermediate HIVES Verified 09/04/23 11:54 hydrocodone bitartrate Allergy Intermediate vomiting Verified 09/04/23 11:54 [From Vicodin] latex Allergy Intermediate Hives Verified 09/04/23 11:54 morphine Allergy Intermediate unknown Verified 09/04/23 11:54 rabies vaccine, human Allergy Intermediate Hives Verified 09/04/23 11:54 diploid cell [Rabies Vaccine,Human Diploid] Tetanus Vaccines and Toxoid Allergy Intermediate Swelling/Ed Verified 09/04/23 11:54 [Tetanus Vaccines & Toxoid] ghulam amitriptyline Allergy Unknown unknown Verified 09/04/23 11:54 bupropion HCl Allergy Unknown unknown Verified 09/04/23 11:54 [From Wellbutrin] celecoxib [From Celebrex] Allergy Unknown unknown Verified 09/04/23 11:54 diazepam [From Valium] Allergy Unknown unknown Verified 09/04/23 11:54 divalproex sodium Allergy Unknown unknown Verified 09/04/23 11:54 [From Depakote] escitalopram oxalate Allergy Unknown unknown Verified 09/04/23 11:54 [From Lexapro] fluoxetine HCl [From Prozac] Allergy Unknown unknown Verified 09/04/23 11:54 fosphenytoin sodium Allergy Unknown unknown Verified 09/04/23 11:54 [From Cerebyx] nicotine [From Nicoderm CQ] Allergy Unknown rash/hives Verified 09/04/23 11:54 paroxetine HCl [From Paxil] Allergy Unknown unknown Verified 09/04/23 11:54 phenytoin sodium Allergy Unknown unknown Verified 09/04/23 11:54 [From Dilantin] phenytoin sodium extended Allergy Unknown unknown Verified 09/04/23 11:54 [From Dilantin] prednisone Allergy Unknown unknown Verified 09/04/23 11:54 procaine HCl [From Novocain] Allergy Unknown unknown Verified 09/04/23 11:54 quetiapine Allergy Unknown unknown Verified 09/04/23 11:54 quetiapine fumarate Allergy Unknown Other (See Verified 09/04/23 11:54 [From Seroquel] Comment) risperidone [From Risperdal] Allergy Unknown Other (See Verified 09/04/23 11:54 Comment) sertraline Allergy Unknown Hives Verified 09/04/23 11:54 trazodone Allergy Unknown Other (See Verified 09/04/23 11:54 Comment) venlafaxine HCl Allergy Unknown Other (See Verified 09/04/23 11:54 [From Effexor] Comment) warfarin [From Coumadin] Allergy none Verified 09/04/23 11:54 listed on referral thiothixene [Thiothixene] AdvReac Severe Nausea Verified 09/04/23 11:54 topiramate AdvReac Intermediate Nausea Verified 09/04/23 11:54 gabapentin AdvReac Unknown Severe Verified 09/04/23 11:54 dizziness, runs; vomiting lidocaine AdvReac Unknown Nausea Verified 09/04/23 11:54 ibuprofen AdvReac headache Verified 09/04/23 11:54 and nausea melatonin AdvReac nightmares Verified 09/04/23 11:54 varenicline tartrate AdvReac Psychosis Verified 09/04/23 11:54 [From Chantix] ABSOLUTE CONTRAINDICATION AdvReac Severe Headache Uncoded 09/04/23 11:54 FOR MRI (disconnected RV pacer lead) general anesthia AdvReac Unknown Other (See Uncoded 09/04/23 11:54 Comment) Home Medications Medication Instructions Recorded Confirmed Type blood sugar diagnostic (Blood #300 ea 05/06/18 09/17/23 Rx Glucose Test strips) lamotrigine 100 mg tablet 100 mg PO BID 05/09/18 09/17/23 History diaper,brief,adult,disposable #150 ea 07/25/18 09/17/23 Rx (Adult Briefs - Large) benztropine 0.5 mg tablet 0.5 mg PO HS 03/06/19 09/17/23 History multivitamin (Daily Multi-Vitamin 1 tab PO DAILY #90 tabs 05/15/19 09/17/23 Rx tablet) cyanocobalamin (vitamin B-12) 500 500 mcg PO DAILY 08/05/19 09/17/23 History mcg tablet (Vitamin B-12) nystatin 100,000 unit/gram topical 1 applic topical BID #60 grams 02/04/20 09/17/23 Rx powder acetylcysteine 600 mg capsule (NAC) 600 mg PO BID 02/11/20 09/17/23 History acetaminophen 500 mg tablet 1,000 mg PO BID PRN fever or pain 07/06/20 09/17/23 History (Acetaminophen Extra Strength) cariprazine 1.5 mg capsule 1.5 mg PO DAILY 10/27/20 09/17/23 History (Vraylar) insulin aspart U-100 100 unit/mL See Rx Instructions subcut AC #15 07/03/22 09/17/23 Rx (3 mL) subcutaneous pen (Novolog mL FlexPen U-100 Insulin aspart) raised toilet seat #1 ea 07/13/22 09/17/23 Rx shower chair with arms, with slide #1 ea 07/13/22 09/17/23 Rx to tub Commode #1 ea 08/21/22 09/17/23 Rx carvedilol 12.5 mg tablet See Rx Instructions .Route 08/28/22 09/17/23 Rx .COMPLEX #180 tabs polyethylene glycol 3350 17 17 g PO DAILY PRN constipation 11/06/22 09/17/23 History gram/dose oral powder sennosides 8.6 mg-docusate sodium 2 tab-cap PO BID PRN constipation 11/06/22 09/17/23 History 50 mg tablet (Senna with Docusate Sodium) fosinopril 40 mg tablet 40 mg PO BID 12/04/22 09/17/23 History lorazepam 0.5 mg tablet 0.5 mg PO Q6H PRN anxiety 12/04/22 09/17/23 History pen needle, diabetic 32 gauge x #100 ea 03/05/23 09/17/23 Rx (BD Vane 2nd Gen Pen Needle) cefadroxil 500 mg capsule 1,000 mg PO .3x/week 03/22/23 09/17/23 History meclizine 12.5 mg tablet See Rx Instructions .Route 05/09/23 09/17/23 Rx .COMPLEX #60 tabs insulin glargine 100 unit/mL (3 See Rx Instructions .Route 05/28/23 09/17/23 Rx mL) subcutaneous pen (Basaglar .COMPLEX #30 mL KwikPen U-100 Insulin) apixaban 5 mg tablet (Eliquis) See Rx Instructions .Route 06/28/23 09/17/23 Rx .COMPLEX #90 tabs memantine 5 mg tablet 5 mg PO BID #180 tabs 07/02/23 09/17/23 Rx omeprazole 40 mg capsule,delayed See Rx Instructions .Route 08/13/23 09/17/23 Rx release .COMPLEX #90 caps lamotrigine 25 mg tablet 25 mg PO BID 09/04/23 09/17/23 History lorazepam 1 mg tablet 2 mg PO HS 09/04/23 09/17/23 History mirtazapine 15 mg tablet 7.5 mg PO QHS 09/04/23 09/17/23 History ondansetron 8 mg disintegrating 8 mg PO Q8H PRN nausea and 09/04/23 09/17/23 Rx tablet vomiting #60 tabs aspirin 81 mg tablet,delayed See Rx Instructions .Route 09/10/23 09/17/23 Rx release .COMPLEX #90 tabs minoxidil 2.5 mg tablet 5 mg (2 x 2.5 mg) PO BID #120 tabs 09/10/23 09/17/23 Rx atorvastatin 40 mg tablet 20 mg PO DAILY 09/17/23 09/17/23 History acetaminophen 650 mg rectal 650 mg ME Q6H PRN fever, mild pain 09/18/23 Rx suppository #6 supp bisacodyl 10 mg rectal suppository 10 mg ME daily PRN constipation #2 09/18/23 Rx (Dulcolax (bisacodyl)) supp haloperidol lactate 2 mg/mL oral 1 mg (0.5 mL) PO Q6H PRN agitation 09/18/23 Rx concentrate #15 mL hyoscyamine sulfate 0.125 mg 0.125 - 0.25 mg (1 - 2 x 0.125 mg) 09/18/23 Rx disintegrating tablet PO Q4H PRN secretions #24 tabs lorazepam 1 mg tablet 1 mg PO Q4H PRN anxiety, ENGLISH or 09/18/23 Rx nausea #6 tabs prochlorperazine maleate 10 mg 10 mg PO Q6H PRN nausea and 09/18/23 Rx tablet vomiting #6 tabs Exam Const General: frail appearing and ill appearing chronically Nutritional Appearance: overweight Orientation: obtunded [facility] Head: atraumatic Mouth: lip abnormal (large) Resp Effort & Inspection: normal respiratory effort Cardio Rate: regular rate Skin General skin exam: other (ashen) Neuro General: patient obtunded (responsive to noxious stimuli) Cognition: abnormal cognition Results Labs 09/17/23 12:12 09/17/23 12:12 Labs: Laboratory Results - last 24 hr 09/17/23 09/17/23 12:01 12:12 WBC 5.50 RBC 3.81 L Hgb 11.2 Hct 34.4 L MCV 90 MCH 29.4 MCHC 32.6 RDW 14.8 H Plt Count 163 MPV 9.7 Immature Gran % 0.2 Neutrophils % 80.1 Lymphocytes % 11.8 Monocytes % 7.3 Eosinophils % 0.2 Basophils % 0.4 Nucleated RBC % 0.0 Absolute Neutrophils 4.41 Absolute Lymphocytes 0.65 L Absolute Monocytes 0.40 Absolute Eosinophils 0.01 Absolute Basophils 0.02 VBG pH 7.42 H VBG pCO2 52 H VBG pO2 33 VBG HCO3 34 H VBG Total CO2 31 H VBG O2 Saturation 63 VBG Base Excess 9 H Sodium 136 Potassium 4.0 Chloride 93 L Carbon Dioxide 32.5 H Anion Gap 10.5 BUN 64 H Creatinine 6.6 H* Est GFR (CKD-EPI 2020) 6.62 Glucose 142 H Calcium 9.7 Magnesium 2.1 Total Bilirubin 0.7 AST 24 ALT 18 Alkaline Phosphatase 194 H Ammonia < 10 L Total Protein 7.1 Albumin 3.9 TSH Cancelled 1.05 Ethyl Alcohol Cancelled < 3.0 Last Vital Signs Pulse 72 09/17/23 11:41 Resp 25 H 09/17/23 11:41 BP 198/89 H 09/17/23 11:41 Pulse Ox 97 09/17/23 11:41 Time Spent Time spent with Patient: 55-74 minutes Time was spent: preparing to see the patient(eg.review tests), obtaining and/or reviewing separately otained hiistory and ordering medications,tests, procedures
[2023-09-17] MEDS: MORPHine 4 MG/ML SYR IVP ×3 (17:04→21:35)
[2023-09-17] MEDS: Normal Saline Flush 10 ML SYR IVP (17:05)
[2023-09-17] MEDS: diphenhydrAMINE 50 MG/ML VIAL 25 MG IVP (19:30)
[2023-09-17] MEDS: diazePAM 10 MG/2 ML SYR 5 MG IVP (21:31)
[2023-09-17] MEDS: ACETAMINOPHEN 1,000 MG/100 ML BTL 400 MG IVPB (22:30)
[2023-09-18] MEDS: MORPHine 4 MG/ML SYR IVP ×2 (01:05→09:09)
[2023-09-18] MEDS: Normal Saline Flush 10 ML SYR IVP ×2 (09:08→09:44)
[2023-09-18] MEDS: diazePAM 10 MG/2 ML SYR 5 MG IVP ×2 (09:43→17:23)
--- NOTE | 2023-09-18 10:20 | W.PM.PROGNOT ---
Date of Service Date of service: 09/18/23 Time of Service: 10:20 Assessment and Plan Assessment and plan (1) Comfort measures only status: Status: Acute Assessment and plan: Changed out morphine to Dilaudid secondary to kidney disease palliative consult pending discussed with DR Frederick Subjective Subjective Interval history since last seen: received 2 doses of morphine overnight, intermittent moaning, responsive to noxious stimuli, reportedly nodding yes and no to questions Exam Narrative Exam Narrative: Chronically ill-appearing female older than stated age no acute distress skin is ashen head is atraumatic eyes closed resting comfortably in the bed respirations even and unlabored family is at bedside Objective Last Vital Signs Temp 36.6 C 09/17/23 22:45 Pulse 76 09/17/23 14:31 Resp 12 09/17/23 14:31 BP 197/101 H 09/17/23 14:31 Pulse Ox 94 09/17/23 14:31 Laboratory Results - last 24 hr 09/17/23 09/17/23 12:01 12:12 WBC 5.50 RBC 3.81 L Hgb 11.2 Hct 34.4 L MCV 90 MCH 29.4 MCHC 32.6 RDW 14.8 H Plt Count 163 MPV 9.7 Immature Gran % 0.2 Neutrophils % 80.1 Lymphocytes % 11.8 Monocytes % 7.3 Eosinophils % 0.2 Basophils % 0.4 Nucleated RBC % 0.0 Absolute Neutrophils 4.41 Absolute Lymphocytes 0.65 L Absolute Monocytes 0.40 Absolute Eosinophils 0.01 Absolute Basophils 0.02 VBG pH 7.42 H VBG pCO2 52 H VBG pO2 33 VBG HCO3 34 H VBG Total CO2 31 H VBG O2 Saturation 63 VBG Base Excess 9 H Sodium 136 Potassium 4.0 Chloride 93 L Carbon Dioxide 32.5 H Anion Gap 10.5 BUN 64 H Creatinine 6.6 H* Est GFR (CKD-EPI 2020) 6.62 Glucose 142 H Calcium 9.7 Magnesium 2.1 Total Bilirubin 0.7 AST 24 ALT 18 Alkaline Phosphatase 194 H Ammonia < 10 L Total Protein 7.1 Albumin 3.9 TSH Cancelled 1.05 Ethyl Alcohol Cancelled < 3.0 Time Spent with Patient Time Spent with Patient: 25-34 minutes Time was spent: preparing to see the patient(eg.review tests), ordering medications,tests, procedures and referring, communicating with other health daycare assistant
[2023-09-18] MEDS: MORPHine 250 MG in Normal Saline 245 ML IV (10:43)
--- NOTE | 2023-09-18 10:45 | INITIAL_ITS ---
Date of service: 09/18/23 Time of Service: 10:45 Care Management Initial Assmt Initial Assessment Reason for Hospitalization: AMS Functional Status/Living Situation Patient Presentation: Corrine lives in an AF home in [place]. Her home provider is Jenna Nevarez. She has end stage renal disease and has stopped dialysis. . Earlier she was on a morphine drip and appeared to still be uncomfortable so the medication was changed to hydromorphone. Corrine's friends and family are by her side and she appears comfortable, although is not awake. Town of Residence: [place] Resides with: Other ([facility] home) Significant Other/Family: Out of area (parents live in [place]) Caregiver/Guardian: Jenna Nevarez is her home provider her sister Vesna Weber is her DPOA Employment Status: Disabled Instrumental Activities of Daily Living (ADLs): Requires support Medications Medication Management: No Issues/Barriers identified Physical Functioning/Mobility Assistive Device: Corrine is bedridden at this time Advance Directives Advance Directives: Do you have an Advance Directive: Y 06/29/22 17:24 AD On File at [facility]: Y 06/29/22 17:24 Date Asked 06/29/22 06/29/22 17:24 AD Date Reviewed 09/17/23 09/18/23 13:11 COLST On File at [facility] No 06/29/22 17:24 COLST Date Scanned Code Status Resuscitation Status DNR/DNI Code Status Comment: Corrine is now in comfort measure and will remain at [facility] for end of life care Insurance Coverage/Financial Issues Insurance: Medicare Medicaid ACO Member: Yes Care Team Visit Care Team Role Provider Type Rosaura Fragoso NP Primary Care Provider NURSE PRACTITIONER Kenyon Long MD Emergency Provider [facility] STAFF PHYSICIAN Elign Escalante Admit Provider [facility] STAFF PHYSICIAN Attending Provider Discharge Potential Discharge Needs: Other (Corrine will either go home on hospice or remain at [facility] for end of life care) Anticipated Barriers to Discharge: None Identified and Other (expected to remain at [facility] for end of life care) Patient/Family Education Needs: Other ([employer]) Transportation: Other (end of life care) Plan: Corrine will remain at [facility] for end of life care. She is currently on a hydromorphone drip and appears quite comfortable. Her parents, sister and other family and friends are at her bedside.CM will follow and continue to support corrine and her family. PFSH All Active Problems (Updated 09/18/23 @ 15:23 by Laura Ibarra MD) DNR (do not resuscitate) (Acute) See 09/18/23 COLST: DNR/DNI [employer] Palliative care patient (Acute) Advanced care planning/counseling discussion (Acute) End stage renal disease (Acute) 07/21/20 [facility] [place] Infected pacemaker (Acute) Encephalopathy (Acute) Comfort measures only status (Acute) Cardiomyopathy (Acute) Bacteremia (Acute ~10/2022) Intra vascular infection, AV graft infection - treating wit IV abx when at dialysis Anemia (Chronic) Atherosclerosis of artery of both lower extremities (Acute) 06/08/22 Rd Uriarte DPM - podiatry visit Reticulocytopenia (Acute) Elevated ferritin (Acute) Dialysis patient (Acute) Fracture of ramus of left pubis (Acute) Hyperlipidemia (Acute) 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 11/15/21 Decision from Transplant Eval that pt is not a candidate for kidney transplant Dysuria (Acute) Memory deficit (Acute) Solitary left kidney (Acute) Decreased GFR (Acute) Viral syndrome (Acute) Bilateral leg edema (Acute) Colonoscopy refused (Acute) Urinary incontinence (Acute 02/11/15) Urge incontinence (Chronic) Elevated cholesterol (Chronic) Fracture of radial neck, left, closed (Acute) H/O endarterectomy (Chronic) Non-adherence to medical treatment (Acute) Type 2 diabetes mellitus (Chronic) Sinus bradycardia (Chronic) S/p pacemaker. Generator change 12/2013 [facility] (Yariel MCLAUGHLIN). Pocket revision & new RV lead 10/2014 [facility]. Postmenopausal (Chronic) LMP ~2004 Paranoia (Chronic 12/19/16) Meralgia paresthetica, right lower limb (Chronic 11/05/15) Dr. 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 Congenital single kidney (Chronic 03/08/15) by xray from [facility] 03/17/09 in scanned records Adult BMI > 30 (Chronic 06/07/15) Medical History Toe pain, bilateral 06/08/22 Rd Uriarte DPM Onychomycosis 06/08/22 Rd Uriarte DPM Type 2 diabetes mellitus with diabetic polyneuropathy Depression End stage renal disease 07/21/20 [facility] Hemodialysis patient Hypertension (~06/20/19) Goal <130/80 [facility] Seizure Sinus node dysfunction (10/22/14) Pacemaker (10/22/14) for bradycardia and sinus node dysfunction DDD pacer 2004 in [place] Medtronic dual lead programmed VVI - PG replaced 01/01/2014 [facility] Old RV lead abandoned PTSD (post-traumatic stress disorder) (05/28/17) PAD (peripheral artery disease) (08/13/17) Stroke R parietal; asymptomatic; Bipolar 1 disorder Surgical History S/P angioplasty (01/30/18) left femoral endarterectomy and patch angioplasty, Aortogram, Over the wire Left ABF graft thrombectomy, Open ledt ABF thrombectomy, left ABF graft stent (VBX 8x39) S/P aortobifemoral bypass surgery aortobifemoral bypass (09/07/17) [facility] [place] [facility]. August 2017 Pacemaker (~2004) [place], [place] section (~1985) Family History Mother No problems noted. Father No problems noted. Sister No problems noted. Social History Smoking/Tobacco Use Status: Former Tobacco Use Quit Date: 03/03/21 Pack-years: 36 Smoking risk assessment performed?: Yes Alcohol Intake: never Drug use: Never Substance use type: does not use Adopted: No Housing: house Number of Children: 1 Do you need help understanding health information?: Always current occupation: disabliilty What type of physical activity do you participate in: walking Duration: 15-30 minutes/day Frequency: 3-4 times per week Do you feel safe at home: Yes Do you feel safe in your relationship?: Yes Additional Social history: lives with care provider - FELIX BEASLEY 04/18/23 SDAK(Care Management) Screening Will the Patient Participate in the Screening?: Unable to obtain
--- NOTE | 2023-09-18 11:41 | CHAPLAIN ---
Vianca not awake when I visited. Three people were in the room with her. One woman said she flew in from [place] to [place] and drove here last night. She said that Vianca told her yesterday, Vladimir has me, and added that Vianca seems to be very comfortable, and that's what's most important to her. Vianca is on a morphine drip. There's a comfort cart in the room. The ED notes state that Vianca will got home on hospice. I don't know if that's still planned. I will continue to visit.
--- NOTE | 2023-09-18 12:33 | PCNE_ITS ---
Date of service: 09/18/23 Time of Service: 12:34 History of Present Illness Narrative: Pallavi Crews is a 63-year-old woman with a history of ES RD (long-term hemodialysis patient many years), type 2 diabetes, atherosclerotic and peripheral vascular disease, Pacemaker (chronic infection requiring lifelong abx),mental health issues (bipolar PTSD), lifelong congitive developmental delay, chronihx CVA, c vertigo, recent change in mental status. Sister Ingrid offers hx: Things have not been going well for a while, so many medical issues in addition to the mental health. Last hospital adm in [place]: she never bounced back: never was able to resume walking, behavioral issues at night (up screaming and throwing poop).YPatient and caregiver and healthcare agent had begun discussions with patient's PCP regarding consideration of stopping hemodialysis. PCP had not actually made referral to outpatient palliative care office. kwabena refused to get out of bed. SHe has both a AVF and a cath. SHe pulled out the shunt the night before last. She then became less responsive. THey brought her to ED. at this point family decided that they do not want her transferred again to tertiary care facility for treatment and dialysis. They feel that patient is ready to transition to comfort measures only and stop dialysis. Ingrid reports that Vianca has been telling caregiver Jenna Neavrez (Suki) that she was having too much pain and ready to . Also that Caregiver had been talking to Vianca about end of life, they had discussed arrangements. THey said she was ready to go. She had chosen an urn. She told people at dialysis that she didn't have much time left, she seemed to understand that she was not doing well. SHe was asking to talk to old friends and even asked to meet up with an old boyfriend. She has been mentioning that Vladimir has me!. Family decided that we are done, no transfer (to hospital that can handle inpt dialysis) and no more dialysis. Family has asked for Morphine so that she does not suffer. When Ingrid first arrived, Vianca was able to talk briefly with Ingrid. My visit with patient today was basically a family meeting with patient present (slept throughout, did not participate at all), sister and healthcare agent Ingrid, caregiver Angle, parents (did not answer questions unless specifically asked). Over the last week: crying non-stop, refusing to eat. Care Team: Primary Care physician: Rosaura Fragoso [facility]rology: [facility]: Sarah [facility]: [facility]: [facility] is manager advertising. No Guardian. Sister Ingrid Estrada is Power of Straightener And Aligner for health Care. Social HX: Vianca has been living with Trang Nevarez in [place]. Sister Ingrid ([place]) DPOA, [facility] arrived today here. Elderly parents live in [facility] and see her about once a week. 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 Cristina Rojas will be visiting later today Hobbies:Sci-Fi, gardening,fishing, socializing with dialysis, dogs. THe last few months has been unable to engage in any of the activities. Additional Services: Impression of currents health status:Sister: SHe is dying What bothers you the most: NA What worries you the most:NA Goals: as per Ingrid: Passing Peacefully Current information preferences: Function: Ambulation:Since three months ago has been unable to walk. WOuld not push herself in Wheelchair. ADLs: Has required spoon feeding about same time she stopped walking. Totally dependent the last few months iADLs: dependent Hearing: good Vision: Wears glasses Cognition: UNable to evaluate Falls: NA Driving: NA Palliative Performance Scale % Ambulation Activity and Evidence of Disease Self Care Intake Level of Consciousness 100 Full Normal activity, no evidence of disease Full Normal Full 90 Full Normal activity, some evidence of disease Full Normal Full 80 Full Normal activity with effort, some evidence of disease Full Normal or reduced Full 70 Reduced Unable to do normal work, some evidence of disease Full Normal or reduced Full 60 Reduced Unable to do hobby or some housework, significant disease Occasional assist necessary Normal or reduced Full or confusion 50 Mainly sit/lie Unable to do any work, extensive disease Considerable assistance required Normal or reduced Full or confusion 40 Mainly in bed Unable to do any work, extensive disease Mainly assistance Normal or reduced Full, drowsy, or confusion 30 Totally bed bound Unable to do any work, extensive disease Total care Reduced Full, drowsy, or confusion 20 Totally bed bound Unable to do any work, extensive disease Total care Minimal sips Full, drowsy, or confusion 10 Totally bed bound Unable to do any work, extensive disease Total care Mouth care only Drowsy or coma 0 - - - - Patient Score: Today:20-30 Spiritual history: Did not go to sikhism, but jewish important, prayed. Gnosticist Palliative review of systems: Pain: Ingrid says she has had pain, better now with morphine. Dyspnea: GI symptoms: Appetite: NOt eating or drinking. Depression: NA Anxiety: None currently Emotional Distress:NA Spiritual/Existential Distress:NA Labs: Cr:6 Liver panel: NL (ALk phos min up) Albumin: 3.9 CBC: hgb 11.2 Advanced Care Planning: Advanced Directive: 2003 on file Health Care Agent: Ingrid Jacobs, listed on 2003 AD COLST: Completed today: DNR/DNI, comfort measures only Limitations: Assessment and Plan Assessment and plan (1) Encephalopathy: Status: Acute Assessment and plan: 63-year-old woman with end-stage renal disease on dialysis for many years in addition to bipolar disorder/PTSD and multiple other medical problems related to complications from her diabetes, peripheral vascular disease, chronic infection of her pacemaker. Over the last 6+ months with steady decline in functioning: No longer ambulatory, unable to feed herself over the last 3 months and now with encephalopathy despite continued dialysis and treatment. Advanced Care Planning/Goals of Care: In the past patient had strongly advocated that she be full code and be availed of every treatment. However recently due to increasing burden of ongoing treatment, she has expressed the desire to no longer receive extraordinary treatment. She and her caregivers and family have been talking about and what her wishes are around burial, etc. Given this recent even more acute decline, patient is unable to participate, however family and caregiver all feel that at this point she would want to be transition to [facility] only and not have to be transferred to hospital far away to continue inpatient dialysis. Family meeting today with family and caregiver, thoughtful discussions with many stories told about the patient. Everyone appears aligned in transitioning to comfort measures only. Regarding CODE STATUS: Healthcare agent care Ingrid unequivocally says that patient would want to be DNR DNI and comfort measures only. COLST form was completed today with Ingrid giving consent to order. Regarding discharge planning/hospice: After discussion, caregiver initially thought that patient would be sent home for her to care for on hospice, which she was willing to do. However now that healthcare agent has arrived, she would like patient to remain in the hospital for a few days initially. If in 2 to 3 days she did not seem to be imminently dying, family would be interested in having patient go back to caregivers home on hospice. They definitely advocate hospice level of care. Hospital test case developer is aware of this, hospitalist aware, phone call to [facility] hospice intake nurse, she is aware as well. End-of-life care management: ?suggest switching to hydromorphone drip at appropriate dose, to avoid build up of toxic metabolites from Morphine due to ESRD.(0.2-0.3 mg/hr hydropmorphone is similar). -Increased risk of szs at EOL with dialysis patients. Have PRN Benzo order in [facility] (SInce lorazepam not available, can use rectal diazepam (0.2 mg/kg, 10-15 mg) or midazolam IV (0.1-0.3 mg/kg , 7-20 mg IV or SC), clonazepam 1 mg IV. -Can use Haldol for nausea SC/IV -For agitation or delirium: As per family, lorazepam has been used very successfully when patient has gotten particularly agitated. Therefore suggest using a similar benzodiazepine as needed (lorazepam reportedly not currently available) Hospice team is available. Please call them if family or hospital team are ready for hospice referral. They will plan at check in with case management in 24 to 48 hours as well. Please call Palliative Care Team with questions or problems. We will plan to follow-up with patient every 2 to 3 days. ---- 16 to 30 minutes spent today on Advance Care Planning. Patient and family participated voluntarily. Advance care planning may include (not limited to) explanation and discussion of advance directives, choosing and appointing healthcare agents, alternatives to various ACP tools, discussion of (and if indicated, completion of) COLST form, discussion of patient's values and overall goals for treatment, palliative and disease directive care options, ways to avoid hospital readmission including hospice discussions, care preferences should the patient's several other adverse health events.See today's palliative care note for additional information. This note was dictated using speech recognition software. Attempt was made at proofreading, but errors may be present. Please call with questions. Time spent today 105 minutes includingTime spent with family meeting, phone call with hospice, discussion with test case developer and security solutions architect in addition to record review (2) Dialysis patient: Status: Acute (3) Infected pacemaker: Status: Acute (4) Type 2 diabetes mellitus: Status: Chronic (5) Atherosclerosis of artery of both lower extremities: Status: Acute (6) End stage renal disease: Status: Acute (7) Advanced care planning/counseling discussion: Status: Acute (8) Palliative care patient: Status: Acute (9) DNR (do not resuscitate): Status: Acute PFSH All Active Problems (Updated 09/18/23 @ 15:23 by Laura Ibarra MD) DNR (do not resuscitate) (Acute) See 09/18/23 COLST: DNR/DNI PHYSICAL BIOCHEMIST Palliative care patient (Acute) Advanced care planning/counseling discussion (Acute) End stage renal disease (Acute) 07/21/20 [facility] Infected pacemaker (Acute) Encephalopathy (Acute) Comfort measures only status (Acute) Cardiomyopathy (Acute) Bacteremia (Acute ~10/2022) Intra vascular infection, AV graft infection - treating wit IV abx when at dialysis Anemia (Chronic) Atherosclerosis of artery of both lower extremities (Acute) 06/08/22 Rd Uriarte DPM - podiatry visit Reticulocytopenia (Acute) Elevated ferritin (Acute) Dialysis patient (Acute) Fracture of ramus of left pubis (Acute) Hyperlipidemia (Acute) 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 11/15/21 Decision from Transplant Eval that pt is not a candidate for kidney transplant Dysuria (Acute) Memory deficit (Acute) Solitary left kidney (Acute) Decreased GFR (Acute) Viral syndrome (Acute) Bilateral leg edema (Acute) Colonoscopy refused (Acute) Urinary incontinence (Acute 02/11/15) Urge incontinence (Chronic) Elevated cholesterol (Chronic) Fracture of radial neck, left, closed (Acute) H/O endarterectomy (Chronic) Non-adherence to medical treatment (Acute) Type 2 diabetes mellitus (Chronic) Sinus bradycardia (Chronic) S/p pacemaker. Generator change 12/2013 [facility] (Yariel MCLAUGHLIN). Pocket revision & new RV lead 10/2014 [facility]. Postmenopausal (Chronic) LMP ~2004 Paranoia (Chronic 12/19/16) Meralgia paresthetica, right lower limb (Chronic 11/05/15) Dr. 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 Congenital single kidney (Chronic 03/08/15) by xray from [facility] 03/17/09 in scanned records Adult BMI > 30 (Chronic 06/07/15) Medical History Toe pain, bilateral 06/08/22 Rd Uriarte DPZane Onychomycosis 06/08/22 Rd Uriarte DPZane Type 2 diabetes mellitus with diabetic polyneuropathy Depression End stage renal disease 07/21/20 [facility] Hemodialysis patient Hypertension (~06/20/19) Goal <130/80 [facility] Seizure Sinus node dysfunction (10/22/14) Pacemaker (10/22/14) for bradycardia and sinus node dysfunction DDD pacer 2004 in [place] Medtronic dual lead programmed VVI - PG replaced 01/01/2014 [facility] Old RV lead abandoned PTSD (post-traumatic stress disorder) (05/28/17) PAD (peripheral artery disease) (08/13/17) Stroke R parietal; asymptomatic; Bipolar 1 disorder Surgical History S/P angioplasty (01/30/18) left femoral endarterectomy and patch angioplasty, Aortogram, Over the wire Left ABF graft thrombectomy, Open ledt ABF thrombectomy, left ABF graft stent (VBX 8x39) S/P aortobifemoral bypass surgery aortobifemoral bypass (09/07/17) [facility]. August 2017 Pacemaker (~2004) [place], [place] section (~1985) Family History Mother No problems noted. Father No problems noted. Sister No problems noted. Social History Smoking/Tobacco Use Status: Former Tobacco Use Quit Date: 03/03/21 Pack-years: 36 Smoking risk assessment performed?: Yes Alcohol Intake: never Drug use: Never Substance use type: does not use Adopted: No Housing: house Number of Children: 1 Do you need help understanding health information?: Always current occupation: disabliilty What type of physical activity do you participate in: walking Duration: 15-30 minutes/day Frequency: 3-4 times per week Do you feel safe at home: Yes Do you feel safe in your relationship?: Yes Additional Social history: lives with care provider - FELIX BEASLEY 04/18/23 Exam Narrative Exam Narrative: Patient was somewhat sallow complexion sleeps throughout the visit. Later when I go, she does squeeze my hand. She does not allow passive range of motion of her arm. When asked if she is having pain she nods her head but does not open her eyes. When I attempt to give her yes/no questions to localize pain, she does not respond further. Her breathing is unlabored. Her mucous membranes are slightly dry. Her hands are cool and slightly dusky. However her feet are warm and pink. Abdomen is soft and nontender. Results Last Vital Signs Temp 36.6 C 09/17/23 22:45 Pulse 76 09/17/23 14:31 Resp 12 09/17/23 14:31 BP 197/101 H 09/17/23 14:31 Pulse Ox 94 09/17/23 14:31 Labs 09/17/23 12:12 09/17/23 12:12 Labs: Laboratory Results - last 24 hr 09/17/23 12:12 Sodium 136 Potassium 4.0 Chloride 93 L Carbon Dioxide 32.5 H Anion Gap 10.5 BUN 64 H Creatinine 6.6 H* Est GFR (CKD-EPI 2020) 6.62 Glucose 142 H Calcium 9.7 Magnesium 2.1 Total Bilirubin 0.7 AST 24 ALT 18 Alkaline Phosphatase 194 H Ammonia < 10 L Total Protein 7.1 Albumin 3.9 TSH 1.05 Ethyl Alcohol < 3.0
--- NOTE | 2023-09-18 16:38 | CHAPLAIN ---
I checked in with Vianca's family late this afternoon. She has opened her eyes a bit, but is not talking. Several family members and friends have visited through out the day. The family especially appreciated the music from volunteer Shilpa Ivey, playing her dulcimer. I let the family know that hands parter is available 13/11. Vesna Vianca's sister will be staying over night with Vianca.
[2023-09-18] MEDS: HYDROmorphone 50 MG in Normal Saline 245 ML IV (16:53)
--- NOTE | 2023-09-18 17:32 | PHACLINREV_ITS ---
Pharmacy Admission Review Admission Clinical Review Admission Pharmacy Review: DNR (do not resuscitate) (Acute) Palliative care patient (Acute) Advanced care planning/counseling discussion (Acute) End stage renal disease (Acute) Infected pacemaker (Acute) Encephalopathy (Acute) Comfort measures only status (Acute) Atherosclerosis of artery of both lower extremities (Acute) Dialysis patient (Acute) aripiprazole [From Abilify] Allergy (Severe, Verified 09/04/23 11:54) tardive dyskinesia duloxetine HCl [From Cymbalta] Allergy (Severe, Verified 09/04/23 11:54) Hives oxycodone Allergy (Severe, Verified 09/04/23 11:54) Hives Sulfa (Sulfonamide Antibiotics) Allergy (Severe, Verified 09/04/23 11:54) Skin Rash acetaminophen [From Vicodin] Allergy (Intermediate, Verified 09/04/23 11:54) vomiting citalopram Allergy (Intermediate, Verified 09/04/23 11:54) HIVES fesoterodine Allergy (Intermediate, Verified 09/04/23 11:54) HIVES hydrocodone bitartrate [From Vicodin] Allergy (Intermediate, Verified 09/04/23 11:54) vomiting latex Allergy (Intermediate, Verified 09/04/23 11:54) Hives morphine Allergy (Intermediate, Verified 09/04/23 11:54) unknown rabies vaccine, human diploid cell [Rabies Vaccine,Human Diploid] Allergy (Intermediate, Verified 09/04/23 11:54) Hives Tetanus Vaccines and Toxoid [Tetanus Vaccines & Toxoid] Allergy (Intermediate, Verified 09/04/23 11:54) Swelling/Edema amitriptyline Allergy (Unknown, Verified 09/04/23 11:54) unknown bupropion HCl [From Wellbutrin] Allergy (Unknown, Verified 09/04/23 11:54) unknown celecoxib [From Celebrex] Allergy (Unknown, Verified 09/04/23 11:54) unknown diazepam [From Valium] Allergy (Unknown, Verified 09/04/23 11:54) unknown divalproex sodium [From Depakote] Allergy (Unknown, Verified 09/04/23 11:54) unknown escitalopram oxalate [From Lexapro] Allergy (Unknown, Verified 09/04/23 11:54) unknown fluoxetine HCl [From Prozac] Allergy (Unknown, Verified 09/04/23 11:54) unknown fosphenytoin sodium [From Cerebyx] Allergy (Unknown, Verified 09/04/23 11:54) unknown nicotine [From Nicoderm CQ] Allergy (Unknown, Verified 09/04/23 11:54) rash/hives paroxetine HCl [From Paxil] Allergy (Unknown, Verified 09/04/23 11:54) unknown phenytoin sodium [From Dilantin] Allergy (Unknown, Verified 09/04/23 11:54) unknown phenytoin sodium extended [From Dilantin] Allergy (Unknown, Verified 09/04/23 11:54) unknown prednisone Allergy (Unknown, Verified 09/04/23 11:54) unknown procaine HCl [From Novocain] Allergy (Unknown, Verified 09/04/23 11:54) unknown quetiapine Allergy (Unknown, Verified 09/04/23 11:54) unknown quetiapine fumarate [From Seroquel] Allergy (Unknown, Verified 09/04/23 11:54) Other (See Comment) risperidone [From Risperdal] Allergy (Unknown, Verified 09/04/23 11:54) Other (See Comment) sertraline Allergy (Unknown, Verified 09/04/23 11:54) Hives trazodone Allergy (Unknown, Verified 09/04/23 11:54) Other (See Comment) venlafaxine HCl [From Effexor] Allergy (Unknown, Verified 09/04/23 11:54) Other (See Comment) warfarin [From Coumadin] Allergy (Verified 09/04/23 11:54) none listed on referral thiothixene [Thiothixene] Adverse Reaction (Severe, Verified 09/04/23 11:54) Nausea topiramate Adverse Reaction (Intermediate, Verified 09/04/23 11:54) Nausea gabapentin Adverse Reaction (Unknown, Verified 09/04/23 11:54) Severe dizziness, runs; vomiting lidocaine Adverse Reaction (Unknown, Verified 09/04/23 11:54) Nausea ibuprofen Adverse Reaction (Verified 09/04/23 11:54) headache and nausea melatonin Adverse Reaction (Verified 09/04/23 11:54) nightmares varenicline tartrate [From Chantix] Adverse Reaction (Verified 09/04/23 11:54) Psychosis ABSOLUTE CONTRAINDICATION FOR MRI (disconnected RV pacer lead) Adverse Reaction (Severe, Uncoded 09/04/23 11:54) Headache general anesthia Adverse Reaction (Unknown, Uncoded 09/04/23 11:54) Other (See Comment) Resuscitation Status DNR/DNI Height 5 ft 2 in Weight 72.575 kg Pharmacy Admission Review Renal Dosing Renal Dosing: BUN 64 mg/dL (7-18) H 09/17/23 12:12 Creatinine 6.6 mg/dL (0.55-1.02) H* 09/17/23 12:12 Medications needing adjustments: Reviewed (CrCl 8.24 mL/min) List of meds needing interventions: Current medications are okay Anticoagulation Anticoagulation: Hgb 11.2 g/dL (11.2-15.7) 09/17/23 12:12 Hct 34.4 % (36.0-46.0) L 09/17/23 12:12 Plt Count 163 10^3/uL (130-400) 09/17/23 12:12 Creatinine 6.6 mg/dL (0.55-1.02) H* 09/17/23 12:12 DVT Prophylaxis: Reviewed (MACHINING DEPARTMENT SUPERVISOR) Opiate Usage Evaluate Pain Scale/Pains Meds: Reviewed (Was initially started on morphine drip but was switched to hydromorphone drip) Scheduled Bowel Reg ordered if on Opiates?: No Relevant Labs Relevant Labs: Sodium 136 mmol/L (136-145) 09/17/23 12:12 Potassium 4.0 mmol/L (3.5-5.1) 09/17/23 12:12 Chloride 93 mmol/L (98-107) L 09/17/23 12:12 Magnesium 2.1 mg/dL (1.8-2.4) 09/17/23 12:12 Electrolytes, C-Reactive P, ESR: Reviewed (MACHINING DEPARTMENT SUPERVISOR) Cardiac Review BP, HR, EF%: Reviewed (MACHINING DEPARTMENT SUPERVISOR) QTc Review QTc: Reviewed (440 from 09/17/23) IV to PO Switch IV Medications: Reviewed Home Meds Home Med List reviewed: Reviewed Relevent Home Meds Not ordered & why?: None ordered - MACHINING DEPARTMENT SUPERVISOR Current Meds Current Medication Order Review: Reviewed Comments: Hydromorphone drip currently at 0.2mg/hr, last increased at 1717 today
--- NOTE | 2023-09-19 05:28 | W.PM.DDS ---
Date of service: 09/19/23 Time of Service: 05:28 Discharge Plan Disposition Patient Disposition: Discharge Details Reason For Visit: Altered Mental Status, ESRD Admit Date/Time: 09/17/23 13:04 Admit Provider: Elgin Escalante Attending Provider: Elgin Escalante Primary Care Provider: Rosaura Fragoso Discharge Data Cause of : Kidney disease Discharge Date/Time-TO BE ENTERED AT DEPARTURE: 09/18/23 23:50 Discharge Sum: Prov Provider Consults: 09/18/23 10:22 Palliative Care Consult [CONS] Routine Consultation Status:: Follow-up needed Clarification:: Manage/follow per spec. Reason for consult:: plan for hospice Discharge Sum: Diag PCOD Cause of : Kidney disease Contributing Factors (1) Comfort measures only status: Discharge Sum: Summary Summary Details: 63 year old female with CRF on hemodialysis, DM, chronic mental health issues (bipolar, PTSD) as well as cognitive delay -- has been in decline recently and had been discussing feeling that she was nearing the end and was ready to . Two nights TILE POWER SHEAR OPERATOR pulled out dialysis catheter, since becoming less responsive. Admitted to hospital 09/16 and, in consultation with family and palliative service, was placed on comfort measures. Received several doses of Morphine and then placed on morphine infusion. Patient peacefully at 19:45 on second hospital day.
--- NOTE | 2023-09-19 05:36 | W.PM.DS.N ---
Date of service: 09/19/23 Time of Service: 05:36 DS: Diagnosis Discharge Diagnosis (1) Comfort measures only status: Status: Acute Discharge Plan Disposition Patient Disposition: Discharge Details Reason For Visit: Altered Mental Status, ESRD Admit Date/Time: 09/17/23 13:04 Admit Provider: Elgin Escalante Attending Provider: Elgin Escalante Primary Care Provider: Rosaura Fragoso Hospital Course Hospital Course: see note Discharge Data Cause of : Kidney disease Discharge Date/Time-TO BE ENTERED AT DEPARTURE: 09/18/23 23:50 DS: Summary Time Spent with Patient providing and/or coordinating discharge services: Less than 30 minutes Status at Discharge Functional status at discharge: bed bound Overall status at discharge: other Mental Status: other Speech and Movement: other Mood: other Affect: other Quality:SDOH Health Related Social Needs: No Data to Display Exam Psych Mental Status: other Speech and Movement: other Mood: other Affect: other DS: Data Vitals/I&O Vitals and I&O: Vital Signs Temperature 36.6 C 09/17/23 22:45 Pulse 76 09/17/23 14:31 Pulse Rhythm Regular 09/17/23 14:31 Pulse 79 09/17/23 13:50 Respiratory Rate 12 09/17/23 14:31 Respiratory Effort Normal, Non-Labored 09/17/23 12:16 Respiratory Depth Normal 09/17/23 14:31 Respiratory Pattern Normal 09/17/23 14:31 Blood Pressure 197/101 H 09/17/23 14:31 Blood Pressure Mean 140 09/17/23 13:46 Pulse Oximetry 94 09/17/23 14:31 Oxygen Delivery Method Room Air 09/17/23 14:31 Oxygen Flow Rate 0 09/17/23 14:31 Pain Level 0 09/17/23 20:[address] Escalante for prn acetaminophen for pt comfort. Adjusted environment temp, blankets. Added fans to room. 09/17/23 22:00 Intake & Output 09/18/23 09/18/23 09/19/23 11:59 23:59 11:59 Intake Total 25.90 / 25.90 Balance 25.90 / 25.90 Intake: IV 25.90 / 25.90 Other: Comment patient was Dry pT dry, no urine output. PFSH All Active Problems (Updated 09/18/23 @ 15:23 by Laura Ibarra MD) DNR (do not resuscitate) (Acute) See 09/18/23 COLST: DNR/DNI SENIOR APPLICATIONS ENGINEER Palliative care patient (Acute) Advanced care planning/counseling discussion (Acute) End stage renal disease (Acute) 07/21/20 [facility] [place] Infected pacemaker (Acute) Encephalopathy (Acute) Comfort measures only status (Acute) Cardiomyopathy (Acute) Bacteremia (Acute ~10/2022) Intra vascular infection, AV graft infection - treating wit IV abx when at dialysis Anemia (Chronic) Atherosclerosis of artery of both lower extremities (Acute) 06/08/22 Rd Uriarte DPM - podiatry visit Reticulocytopenia (Acute) Elevated ferritin (Acute) Dialysis patient (Acute) Fracture of ramus of left pubis (Acute) Hyperlipidemia (Acute) 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 11/15/21 Decision from Transplant Eval that pt is not a candidate for kidney transplant Dysuria (Acute) Memory deficit (Acute) Solitary left kidney (Acute) Decreased GFR (Acute) Viral syndrome (Acute) Bilateral leg edema (Acute) Colonoscopy refused (Acute) Urinary incontinence (Acute 02/11/15) Urge incontinence (Chronic) Elevated cholesterol (Chronic) Fracture of radial neck, left, closed (Acute) H/O endarterectomy (Chronic) Non-adherence to medical treatment (Acute) Type 2 diabetes mellitus (Chronic) Sinus bradycardia (Chronic) S/p pacemaker. Generator change 12/2013 [facility] [place] (Yariel [facility]HLIN). Pocket revision & new RV lead 10/2014 [facility] [place]. Postmenopausal (Chronic) LMP ~2004 Paranoia (Chronic 12/19/16) Meralgia paresthetica, right lower limb (Chronic 11/05/15) Dr. 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 Congenital single kidney (Chronic 03/08/15) by xray from [facility] 03/17/09 in scanned records Adult BMI > 30 (Chronic 06/07/15) Medical History Toe pain, bilateral 06/08/22 Rd Uriarte DPM Onychomycosis 06/08/22 Rd Uriarte DPM Type 2 diabetes mellitus with diabetic polyneuropathy Depression End stage renal disease 07/21/20 [facility] [place] Hemodialysis patient Hypertension (~06/20/19) Goal <130/80 [facility] Seizure Sinus node dysfunction (10/22/14) Pacemaker (10/22/14) for bradycardia and sinus node dysfunction DDD pacer 2004 in [place] Medtronic dual lead programmed VVI - PG replaced 01/01/2014 [facility] [place] Old RV lead abandoned PTSD (post-traumatic stress disorder) (05/28/17) PAD (peripheral artery disease) (08/13/17) Stroke R parietal; asymptomatic; Bipolar 1 disorder Surgical History S/P angioplasty (01/30/18) left femoral endarterectomy and patch angioplasty, Aortogram, Over the wire Left ABF graft thrombectomy, Open ledt ABF thrombectomy, left ABF graft stent (VBX [id number]) S/P aortobifemoral bypass surgery aortobifemoral bypass (09/07/17) [facility]. August 2017 Pacemaker (~2004) [place] section (~1985) Family History Mother No problems noted. Father No problems noted. Sister No problems noted. Social History Smoking/Tobacco Use Status: Former Tobacco Use Quit Date: 03/03/21 Pack-years: 37 Smoking risk assessment performed?: Yes Alcohol Intake: never Drug use: Never Substance use type: does not use Adopted: No Housing: house Number of Children: 1 Do you need help understanding health information?: Always current occupation: disabliilty What type of physical activity do you participate in: walking Duration: 15-30 minutes/day Frequency: 3-4 times per week Do you feel safe at home: Yes Do you feel safe in your relationship?: Yes Additional Social history: lives with care provider - FELIX BEASLEY 04/18/23 Time Spent with Patient Time Spent with Patient: <45 minutes Time was spent: other
== END 2023-09-18 23:50 | disposition expired ==
LOC: ER 14:16 → MS 14:17
PROVIDERS: Admitting Provider Family Medicine; Emergency Provider Student in an Organized Health Care Education/Training Program; PCP Nurse Practitioner; Visit Provider Family Medicine
DX: N18.6 End stage renal disease (principal); Z51.5 Encounter for palliative care; Z99.2 Dependence on renal dialysis; E11.22 Type 2 diabetes mellitus with diabetic chronic kidney disease; I12.0 Hypertensive chronic kidney disease with stage 5 chronic kidney disease or end stage renal disease; I70.203 Unspecified atherosclerosis of native arteries of extremities, bilateral legs; Z66 Do not resuscitate; G93.40 Encephalopathy, unspecified; I42.9 Cardiomyopathy, unspecified; D64.9 Anemia, unspecified; R41.3 Other amnesia; R60.0 Localized edema; R32 Unspecified urinary incontinence; E78.00 Pure hypercholesterolemia, unspecified; G57.11 Meralgia paresthetica, right lower limb; G24.01 Drug induced subacute dyskinesia; Z95.0 Presence of cardiac pacemaker; E11.65 Type 2 diabetes mellitus with hyperglycemia; Q60.0 Renal agenesis, unilateral; Z79.899 Other long term (current) drug therapy; Z79.4 Long term (current) use of insulin; F43.10 Post-traumatic stress disorder, unspecified; F31.9 Bipolar disorder, unspecified
CPT/HCPCS: 00123; 36415; 80053; 82805; 93005; 96365; 96366; 96367; 96375; 96376; 99285; 80320; 82140; 83735; 84443; 85025; 93010; 99222; 99231; G0378; J0131; J1170; J1200; J2270; J3360